=== PATIENT | male | born 1950 | race Caucasian/White ===

== ENCOUNTER 2020-06-08 10:45 | Inpatient (IN) | payer MEDICARE, SELFPAY ==
[2020-06-08] VITALS (8 sets, daily range): BP systolic 111–139; BP diastolic 56–81; PULSE 81–110; RESP 18–22; TEMP 36.1–37.1; O2SAT 79–95; BMI 34.4
--- NOTE | ~2020-06-08 | XR_ITS ---
EXAMINATION: XR CHEST CLINICAL INFORMATION: Shortness of breath and cough COMPARISON: 02/13/2018 TECHNIQUE: Frontal view of the chest was obtained. FINDINGS: There is focal airspace opacity in the left mid and lower lung with patchy bilateral interstitial opacities. Is blunting of the right costophrenic angle which may reflect a small right pleural effusion. Trace left pleural effusion may be present. Calcified aortic arch. Normal heart size. Degenerative changes of the shoulders and thoracic spine. XR/XR chest 1V IMPRESSION: Focal airspace opacity in the left mid and lower lung with patchy bilateral interstitial opacities. The appearance suggests an infectious or inflammatory etiology. Viral COVID pneumonitis could give this appearance.
--- NOTE | ~2020-06-08 | CT_ITS ---
EXAMINATION: CT ANGIOGRAM OF THE CHEST WITH AND WITHOUT CONTRAST (CT PULMONARY ANGIOGRAM FOR PE) CLINICAL INFORMATION: Hypoxia, tachycardia, elevated d-dimer COMPARISON: Chest x-ray earlier the same day TECHNIQUE: Prior to contrast administration, noncontrast localization images were obtained. Subsequently, multidetector volumetric imaging was performed from the thoracic inlet to below the diaphragms following the administration of 71 mL Omnipaque 350 intravenous contrast. No contrast reaction reported Sagittal, coronal, and MIP oblique sagittal reformatted images were obtained on the CT workstation, uploaded to PACS, and reviewed. This CT examination was performed using dose optimization techniques as appropriate, variously including the following: *Automated exposure control *Adjustment of mA and/or kV according to patient size (this includes techniques or standardized protocols for targeted exams where dose is matched to indication/reason for exam; i.e. extremities or head) *Use of iterative reconstruction technique Total exam dose-length product 413 mGy-cm FINDINGS: QUALITY OF STUDY/CONTRAST BOLUS: Satisfactory. PULMONARY ARTERIES: No central or segmental pulmonary emboli. THORACIC AORTA: No aneurysm or dissection. LUNG: There is respiratory motion artifact. Moderate centrilobular emphysema. There are patchy interstitial opacities in the lateral aspect of the left upper lobe and in the lower lobes bilaterally with more confluent areas of airspace consolidation in the left lower lobe and right posterior costophrenic sulcus. No dense lobar consolidation. PLEURA: Small bilateral pleural effusions, right greater than left. MEDIASTINUM: Heart size upper limits of normal. Trace pericardial fluid present. Prominent to mildly enlarged mediastinal lymph nodes are seen. The largest is a 1.5 x 1.1 cm AP window lymph node. No hilar lymphadenopathy. No evidence of septal bowing or right heart strain. CHEST WALL/AXILLA: No axillary or internal mammary lymphadenopathy. OSSEOUS STRUCTURES: The level degenerative changes. No acute or suspicious osseous abnormality. UPPER ABDOMEN: No adrenal mass. No reflux of contrast into the hepatic veins to suggest elevated right heart pressures. CT/CT angio chest PE protocol IMPRESSION: No pulmonary embolus. Small right greater than left bilateral pleural effusions. Patchy airspace opacity bilaterally with more confluent areas of airspace consolidation in the left lower lobe and posteriorly in the right lung base. The appearance is nonspecific but most suggestive of an infectious or inflammatory process. Recommend clinical correlation. Prominent to mildly enlarged mediastinal lymph nodes are presumably reactive. VTE: negative
--- NOTE | 2020-06-08 12:18 | ECG_ITS ---
Test Reason : SOB Blood Pressure : / mmHG Vent. Rate : 098 BPM Atrial Rate : 098 BPM P-R Int : 198 ms QRS Dur : 094 ms QT Int : 388 ms P-R-T Axes : 079 075 079 degrees QTc Int : 495 ms Normal sinus rhythm Cannot rule out Inferior infarct , age undetermined T wave abnormality, consider anterolateral ischemia Abnormal ECG No previous ECGs available Referred By: Sarai Kothari Electronically Signed By:RENEE BOOTH MD
--- NOTE | 2020-06-08 12:36 | ED_ITS ---
HPI - SOB/Dyspnea General Chief Complaint: Dyspnea <SUDHEER Adkins - Last Filed: 06/08/20 15:38> Stated Complaint: SOB, HX COPD, NO COVID EXPOSURE <SUDHEER Adkins - Last Filed: 06/08/20 15:38> Time Seen by Provider: 06/08/20 12:17 <SUDHEER Adkins - Last Filed: 06/08/20 15:38> Source: patient and EMS <SUDHEER Adkins - Last Filed: 06/08/20 15:38> Mode of arrival: EMS <SUDHEER Adkins - Last Filed: 06/08/20 15:38> Limitations: no limitations <SUDHEER Adkins - Last Filed: 06/08/20 15:38> History of Present Illness HPI Narrative: 70 y/o male with history of COPD on PRN O2, hx [place] in 1989, HLD, BPH who presents to the ED via EMS with worsening SOB, JONES, and productive cough for the last 4-5 days. He reports his breathing has been significantly worse with any exertion. He has been bringing up a lot of phlegm the last few days which is not his baseline. He does not recall color. He denies fever or chills. He has central chest discomfort and soreness when he is coughing. No nausea or vomiting. No known sick contacts. <SUDHEER Adkins - Last Filed: 06/08/20 15:38> MD elicited complaint: shortness of breath and cough <SUDHEER Adkins - Last Filed: 06/08/20 15:38> Pertinent past history: COPD <SUDHEER Adkins - Last Filed: 06/08/20 15:38> Onset (ago): day(s) (4-5) <SUDHEER Adkins - Last Filed: 06/08/20 15:38> Timing: constant <SUDHEER Adkins - Last Filed: 06/08/20 15:38> Severity: moderate <SUDHEER Adkins Last Filed: 06/08/20 15:38> Exacerbating factors: exertion and movement <SUDHEER Adkins - Last Filed: 06/08/20 15:38> Relieving factors: oxygen, rest and bronchodilators <SUDHEER Adkins Last Filed: 06/08/20 15:38> Known history of: COPD <SUDHEER Adkins Last Filed: 06/08/20 15:38> Associated symptoms: chest pain, cough, wheezing and sputum production <SUDHEER Adkins Last Filed: 06/08/20 15:38> Treatment prior to arrival: oxygen and bronchodilator <SUDHEER Adkins Last Filed: 06/08/20 15:38> Related Data Home oxygen amount: other (as needed with exertion) <SUDHEER Adkins Last Filed: 06/08/20 15:38> Home Medications: Home Medications Medication Instructions Recorded Confirmed Breo Ellipta 1 puff PO DAILY 06/08/20 06/08/20 aspirin 1 tab PO DAILY 06/08/20 06/08/20 lisinopril 1 tab PO DAILY 06/08/20 06/08/20 pravastatin 1 tab PO BEDTIME 06/08/20 06/08/20 tamsulosin 1 cap PO DAILY 06/08/20 06/08/20 Previous Rx's Medication Instructions Recorded cefuroxime axetil 500 mg PO BID 7 Days #10 tab 06/11/20 prednisone 20 mg PO DAILY #3 tab 06/11/20 <SUDHEER Adkins Last Filed: 06/08/20 15:38> Allergies/Adverse Reactions: Allergies Allergy/AdvReac Type Severity Reaction Status Date / Time No Known Allergies Allergy Verified 06/08/20 10:59 <SUDHEER Adkins Last Filed: 06/08/20 15:38> Review of Systems Review of Systems: Constitutional: No Fever, No Chills ENT/Mouth: No sore throat, No Rhinorrhea, No Swallowing Difficulty Cardiovascular: + Chest Pain, + SOB, No Orthopnea, No Edema Respiratory: + Cough, + Sputum, + Wheezing, + dyspnea Gastrointestinal: No Nausea, No Vomiting, No Diarrhea, No abdominal Pain Genitourinary: No Dysuria, No Urinary Frequency, No Hematuria Musculoskeletal: No joint pain, No Myalgias Skin: No Skin Lesions, No rash Neuro: No Weakness, No Numbness, No Dizziness, No Headache Psych: No Anxiety/Panic, No Depression Heme/Lymph: No Bruising, No Lymphadenopathy Endocrine: No Polyuria, No Polydipsia <SUDHEER Adkins - Last Filed: 06/08/20 15:38> [facility] Past Medical History Attestation statement: The following information was validated with the patient. <SUDHEER Adkins - Last Filed: 06/08/20 15:38> Medical History: Medical History (Updated 06/19/20 @ 00:00 by Ksenia Sanchez) BPH (benign prostatic hyperplasia) COPD (chronic obstructive pulmonary disease) HTN (hypertension) <SUDHEER Adkins - Last Filed: 06/08/20 15:38> Surgical History: Surgical History (Updated 06/08/20 @ 16:28 by SUDHEER Holloway) H/O hernia repair <SUDHEER Adkins - Last Filed: 06/08/20 15:38> Family History Family History: Family History Other CAD (coronary artery disease) <SUDHEER Adkins - Last Filed: 06/08/20 15:38> Social History Social History: Social History (Updated 06/08/20 @ 16:28 by SUDHEER Holloway) Household Members: None Housing: Apartment Alcohol intake: current Alcohol intake frequency: holidays/special occasions only Smoking Status: Former smoker service: No Current occupational status: disabled <SUDHEER Adkins - Last Filed: 06/08/20 15:38> Physical Exam Vital Signs: Vital Signs: Last Vital Signs Temp 98.4 F 06/11/20 11:43 Pulse 102 H 06/11/20 11:43 Resp 19 06/11/20 11:43 BP 127/63 06/11/20 11:43 Pulse Ox 91 L 06/11/20 11:43 Body Mass Index 34.4 Appearance: Alert. Oriented X3. No acute distress. Eyes: Pupils equal, round and reactive to light. ENT: Pharynx normal. Neck: Normal inspection. Neck supple. CVS: Normal heart rate and rhythm. Pulses normal. Respiratory: No respiratory distress. Breath sounds with end expiratory wheezes throughout Abdomen: Obese, Soft and nontender. +BS x4 Skin: Skin warm and dry. Normal skin color. Normal skin turgor. No rashes. Extremities: No lower extremity edema. Negative Maddi's sign Neuro: Oriented X 3. No motor deficit. No sensory deficit. <SUDHEER Adkins - Last Filed: 06/08/20 15:38> Vital Signs: Last Vital Signs Temp 98.4 F 06/11/20 11:43 Pulse 102 H 06/11/20 11:43 Resp 19 06/11/20 11:43 BP 127/63 06/11/20 11:43 Pulse Ox 91 L 06/11/20 11:43 Body Mass Index 34.4 <Baldev Márquez MD - Last Filed: 06/28/20 11:08> Course Course Course Narrative: 70 y/o with history of COPD and [place] presenting with SOB, JONES and productive cough. Hypoxic to 79% for EMS. Placed on 4L NC and given 2 nebs en route with significant improvement. He feels much better on arrival. SpO2 91-96% on 4L NC. When weaned to 3L he desaturated to 87%. Wheezing starting to increase. Will get COVID now and start an hour long albuterol neb. IV steroids ordered for COPD exacerbation as well as cultures. He is afebrile and does not appear septic at this time. Anticipate admisison. <SUDHEER Adkins - Last Filed: 06/08/20 15:38> I have reviewed the chart <Baldev Márquez MD - Last Filed: 06/28/20 11:08> Reevaluation(s) Reevaluation #1: CXR with left sided infiltrate - Rocephin and Azithromycin ordered for CAP coverage. Lactic acid is normal and he remains afebrile. HR 90 on arrival and 99 now. Tachycardia likely due to nebulizers given. BNP elevated will hold off on I VF. EKG is concerning for ischemia however, no old to review and troponin 8.8 which is reassuring. Will get 3 hour repeat. He offers no complaints of chest pain at this time. DDIMER elevated, will proceed with CTA chest for further assessment of PNA and r/o PE. SpO2 91% on 4L NC after 1 hour long neb. Will admit. <SUDHEER Adkins - Last Filed: 06/08/20 15:38> Reevaluation #2: CTA negative for PE - showing bilateral infiltrates. He has been given CAP coverage. Will order sputum culture. Will admit. Hospitalist Vita Lancaster PA-C has been notified of patient and will admit. <SUDHEER Adkins - Last Filed: 06/08/20 15:38> MDM - SOB/Dyspnea Differential Diagnosis Differential diagnosis: Likely acute exacerbation of chronic obstructive airways disease, congestive heart failure, pneumonia, asthma with exacerbation, pulmonary embolism and pleural effusion <SUDHEER Adkins - Last Filed: 06/08/20 15:38> Medical Records Attestation: I reviewed the patient's medical records. <SUDHEER Adkins - Last Filed: 06/08/20 15:38> Lab Data Attestation: I reviewed the patient's lab results. <SUDHEER Adkins - Last Filed: 06/08/20 15:38> Result diagrams: : 06/09/20 05:54 06/09/20 05:54 <SUDHEER Adkins - Last Filed: 06/08/20 15:38> Labs: Lab Results 06/08/20 06/08/20 06/08/20 Range/Units 12:27 12:27 12:27 WBC 5.0 (4.8-10.8) X10*3/uL RBC 5.39 (4.60-5.80) X10*6/uL Hgb 13.5 L (14.0-18.0) g/dl Hct 45.8 (42-52) % MCV 85.0 (80-98) fL MCH 25.0 L (27.0-33.0) pg MCHC 29.5 L (31.0-36.0) g/dl RDW 17.7 H (11.0-16.0) % Plt Count 297 (160-400) X10*3/uL MPV 10.1 (9.4-12.4) fL Immature Gran % (Auto) 0.2 (0.0-0.4) % Neut % (Auto) 70.6 (45-73) % Lymph % (Auto) 17.5 L (20-40) % Barrow % (Auto) 8.9 (2-11) % Eos % (Auto) 1.6 (0-4) % Baso % (Auto) 1.2 (0-2) % Lymph # (Auto) 0.9 L (1.2-4.9) X10*3/uL Barrow # (Auto) 0.5 (0.1-1.2) X10*3/uL Eos # (Auto) 0.1 (0.0-0.4) X10*3/uL Baso # (Auto) 0.1 (0.0-0.2) X10*3/uL Abs Immat Gran (auto) 0.01 (0.00-0.03) X10*3/uL Absolute Neuts (auto) 3.6 (2.0-8.3) X10*3/uL Absolute Nucleated RBC 0.000 (0.0-0.012) X10*3/uL Nucleated RBC % (auto) 0.0 (0.0-0.2) /100WBC D-Dimer 794 NG/ML Hold Blue Top SEE NOTE Sodium 139 (135-145) mmol/L Potassium 4.5 (3.3-5.1) mmol/L Chloride 105 (96-108) mmol/L Carbon Dioxide 27 (22-29) mmol/L Anion Gap 12 (12-20) BUN 12 (9-16) mg/dL Creatinine 0.83 (0.5-1.4) mg/dL Estim Creat Clear Calc 90.5 Estimated GFR > 60 Random Glucose 92 (60-115) mg/dL Lactic Acid (0.5-2.0) mmol/L Calcium 9.1 (8.4-10.2) mg/dL Magnesium 2.2 (1.6-2.6) mg/dL Total Bilirubin 0.7 (0.0-1.0) mg/dL Direct Bilirubin 0.4 (0.0-0.5) mg/dL AST 12 (5-37) U/L ALT 9 (0-40) U/L Alkaline Phosphatase 63 (39-117) U/L Troponin I High Sens (<3.5-35.0) ng/L C-Reactive Protein 0.78 H (< or = 0.50) mg/dL B-Natriuretic Peptide (<100) pg/mL Total Protein 6.4 L (6.5-8.0) g/dL Albumin 3.6 (3.5-5.0) g/dL COVID-19 (LUIS) (Negative) COVID-19 Clin Com 06/08/20 06/08/20 06/08/20 Range/Units 12:27 12:27 12:27 WBC (4.8-10.8) X10*3/uL RBC (4.60-5.80) X10*6/uL Hgb (14.0-18.0) g/dl Hct (42-52) % MCV (80-98) fL MCH (27.0-33.0) pg MCHC (31.0-36.0) g/dl RDW (11.0-16.0) % Plt Count (160-400) X10*3/uL MPV (9.4-12.4) fL Immature Gran % (Auto) (0.0-0.4) % Neut % (Auto) (45-73) % Lymph % (Auto) (20-40) % Barrow % (Auto) (2-11) % Eos % (Auto) (0-4) % Baso % (Auto) (0-2) % Lymph # (Auto) (1.2-4.9) X10*3/uL Barrow # (Auto) (0.1-1.2) X10*3/uL Eos # (Auto) (0.0-0.4) X10*3/uL Baso # (Auto) (0.0-0.2) X10*3/uL Abs Immat Gran (auto) (0.00-0.03) X10*3/uL Absolute Neuts (auto) (2.0-8.3) X10*3/uL Absolute Nucleated RBC (0.0-0.012) X10*3/uL Nucleated RBC % (auto) (0.0-0.2) /100WBC D-Dimer NG/ML Hold Blue Top Sodium (135-145) mmol/L Potassium (3.3-5.1) mmol/L Chloride (96-108) mmol/L Carbon Dioxide (22-29) mmol/L Anion Gap (12-20) BUN (9-16) mg/dL Creatinine (0.5-1.4) mg/dL Estim Creat Clear Calc Estimated GFR Random Glucose (60-115) mg/dL Lactic Acid 1.6 (0.5-2.0) mmol/L Calcium (8.4-10.2) mg/dL Magnesium (1.6-2.6) mg/dL Total Bilirubin (0.0-1.0) mg/dL Direct Bilirubin (0.0-0.5) mg/dL AST (5-37) U/L ALT (0-40) U/L Alkaline Phosphatase (39-117) U/L Troponin I High Sens 8.8 (<3.5-35.0) ng/L C-Reactive Protein (< or = 0.50) mg/dL B-Natriuretic Peptide 462 H (<100) pg/mL Total Protein (6.5-8.0) g/dL Albumin (3.5-5.0) g/dL COVID-19 (LUIS) Negative (Negative) COVID-19 Clin Com See Note <SUDHEER Adkins - Last Filed: 06/08/20 15:38> Lab Results 06/08/20 06/08/20 06/08/20 Range/Units 12:27 12:27 12:27 WBC 5.0 (4.8-10.8) X10*3/uL RBC 5.39 (4.60-5.80) X10*6/uL Hgb 13.5 L (14.0-18.0) g/dl Hct 45.8 (42-52) % MCV 85.0 (80-98) fL MCH 25.0 L (27.0-33.0) pg MCHC 29.5 L (31.0-36.0) g/dl RDW 17.7 H (11.0-16.0) % Plt Count 297 (160-400) X10*3/uL MPV 10.1 (9.4-12.4) fL Immature Gran % (Auto) 0.2 (0.0-0.4) % Neut % (Auto) 70.6 (45-73) % Lymph % (Auto) 17.5 L (20-40) % Barrow % (Auto) 8.9 (2-11) % Eos % (Auto) 1.6 (0-4) % Baso % (Auto) 1.2 (0-2) % Lymph # (Auto) 0.9 L (1.2-4.9) X10*3/uL Barrow # (Auto) 0.5 (0.1-1.2) X10*3/uL Eos # (Auto) 0.1 (0.0-0.4) X10*3/uL Baso # (Auto) 0.1 (0.0-0.2) X10*3/uL Abs Immat Gran (auto) 0.01 (0.00-0.03) X10*3/uL Absolute Neuts (auto) 3.6 (2.0-8.3) X10*3/uL Absolute Nucleated RBC 0.000 (0.0-0.012) X10*3/uL Nucleated RBC % (auto) 0.0 (0.0-0.2) /100WBC D-Dimer 794 NG/ML Hold Blue Top SEE NOTE Sodium 139 (135-145) mmol/L Potassium 4.5 (3.3-5.1) mmol/L Chloride 105 (96-108) mmol/L Carbon Dioxide 27 (22-29) mmol/L Anion Gap 12 (12-20) BUN 12 (9-16) mg/dL Creatinine 0.83 (0.5-1.4) mg/dL Estim Creat Clear Calc 90.5 Estimated GFR > 60 Random Glucose 92 (60-115) mg/dL Lactic Acid (0.5-2.0) mmol/L Calcium 9.1 (8.4-10.2) mg/dL Magnesium 2.2 (1.6-2.6) mg/dL Total Bilirubin 0.7 (0.0-1.0) mg/dL Direct Bilirubin 0.4 (0.0-0.5) mg/dL AST 12 (5-37) U/L ALT 9 (0-40) U/L Alkaline Phosphatase 63 (39-117) U/L Troponin I High Sens (<3.5-35.0) ng/L C-Reactive Protein 0.78 H (< or = 0.50) mg/dL B-Natriuretic Peptide (<100) pg/mL Total Protein 6.4 L (6.5-8.0) g/dL Albumin 3.6 (3.5-5.0) g/dL COVID-19 (LUIS) (Negative) COVID-19 Clin Com 06/08/20 06/08/20 06/08/20 Range/Units 12:27 12:27 12:27 WBC (4.8-10.8) X10*3/uL RBC (4.60-5.80) X10*6/uL Hgb (14.0-18.0) g/dl Hct (42-52) % MCV (80-98) fL MCH (27.0-33.0) pg MCHC (31.0-36.0) g/dl RDW (11.0-16.0) % Plt Count (160-400) X10*3/uL MPV (9.4-12.4) fL Immature Gran % (Auto) (0.0-0.4) % Neut % (Auto) (45-73) % Lymph % (Auto) (20-40) % Barrow % (Auto) (2-11) % Eos % (Auto) (0-4) % Baso % (Auto) (0-2) % Lymph # (Auto) (1.2-4.9) X10*3/uL Barrow # (Auto) (0.1-1.2) X10*3/uL Eos # (Auto) (0.0-0.4) X10*3/uL Baso # (Auto) (0.0-0.2) X10*3/uL Abs Immat Gran (auto) (0.00-0.03) X10*3/uL Absolute Neuts (auto) (2.0-8.3) X10*3/uL Absolute Nucleated RBC (0.0-0.012) X10*3/uL Nucleated RBC % (auto) (0.0-0.2) /100WBC D-Dimer NG/ML Hold Blue Top Sodium (135-145) mmol/L Potassium (3.3-5.1) mmol/L Chloride (96-108) mmol/L Carbon Dioxide (22-29) mmol/L Anion Gap (12-20) BUN (9-16) mg/dL Creatinine (0.5-1.4) mg/dL Estim Creat Clear Calc Estimated GFR Random Glucose (60-115) mg/dL Lactic Acid 1.6 (0.5-2.0) mmol/L Calcium (8.4-10.2) mg/dL Magnesium (1.6-2.6) mg/dL Total Bilirubin (0.0-1.0) mg/dL Direct Bilirubin (0.0-0.5) mg/dL AST (5-37) U/L ALT (0-40) U/L Alkaline Phosphatase (39-117) U/L Troponin I High Sens 8.8 (<3.5-35.0) ng/L C-Reactive Protein (< or = 0.50) mg/dL B-Natriuretic Peptide 462 H (<100) pg/mL Total Protein (6.5-8.0) g/dL Albumin (3.5-5.0) g/dL COVID-19 (LUIS) Negative (Negative) COVID-19 Clin Com See Note <Baldev Márquez MD - Last Filed: 06/28/20 11:08> ECG Data Attestation: I personally reviewed and interpreted this ECG as follows: <SUDHEER Adkins - Last Filed: 06/08/20 15:38> ECG interpretation date: 06/08/20 <SUDHEER Adkins - Last Filed: 06/08/20 15:38> ECG interpretation time: 14:07 <SUDHEER Adkins - Last Filed: 06/08/20 15:38> Prior ECG tracings: not available for review <SUDHEER Adkins - Last Filed: 06/08/20 15:38> Ischemic changes: t wave inversions <SUDHEER Adkins - Last Filed: 06/08/20 15:38> Interpretation: normal sinus rhythm, HR 98 bpm, t-wave inversions in leads I, V1-V5. artifact present. <SUDHEER Adkins - Last Filed: 06/08/20 15:38> Critical Care Time Critical Care Time Critical Care Time: Yes <SUDHEER Adkins - Last Filed: 06/08/20 15:38> Total Critical Care Time: 60 <SUDHEER Adkins - Last Filed: 06/08/20 15:38> Attestation: I attest to critical care time spent caring for this patient with life- threatening acute hypoxic respiratory failure; time spent frequently at the beside reassessing his respiratory status, reviewing imaging, labs and coordinating care. <SUDHEER Adkins - Last Filed: 06/08/20 15:38> Discharge Plan Discharge Clinical Impression: Acute respiratory failure with hypoxia, Multifocal pneumonia <SUDHEER Adkins - Last Filed: 06/08/20 15:38> Patient Disposition: Admitted As Inpatient <SUDHEER Adkins - Last Filed: 06/08/20 15:38> Interventions: Admission Worksheet (ED) Last Done: 06/08/20 18:35 <SUDHEER Adkins - Last Filed: 06/08/20 15:38> Discharge Date/Time: 06/08/20 18:35 <SUDHEER Adkins - Last Filed: 06/08/20 15:38>
[2020-06-08 12:41] LABS: MANUAL DIFF FLAG NO
[2020-06-08 12:43] LABS: Basophils Absolute Auto 0.1 X10*3/uL (0.0-0.2); Basophils Percent Auto 1.2 % (0-2); Eosinophils Absolute Auto 0.1 X10*3/uL (0.0-0.4); Eosinophils Percent Auto 1.6 % (0-4); Hematocrit 45.8 % (42-52); Hemoglobin 13.5 g/dl (14.0-18.0); Imm Gran Abs Auto 0.01 X10*3/uL (0.00-0.03); Imm Gran Pct Auto 0.2 % (0.0-0.4); Lymphocytes Absolute Auto 0.9 X10*3/uL (1.2-4.9); Lymphocytes Percent Auto 17.5 % (20-40); Mean Corpuscular HGB Conc 29.5 g/dl (31.0-36.0); Mean Platelet Volume 10.1 fL (9.4-12.4); Monocytes Absolute Auto 0.5 X10*3/uL (0.1-1.2); Monocytes Percent Auto 8.9 % (2-11); Neutrophils Absolute Auto 3.6 X10*3/uL (2.0-8.3); Neutrophils Percent Auto 70.6 % (45-73); Platelet Count 297 X10*3/uL (160-400); Red Blood Count 5.39 X10*6/uL (4.60-5.80); Red Cell Distribution Width 17.7 % (11.0-16.0)
[2020-06-08] MEDS: methylPREDNISolone Sod Succ/PF 125 MG/2 ML VIAL IVPUSH (12:47)
[2020-06-08 12:53] LABS: D Dimer 794 NG/ML
[2020-06-08] MEDS: Albuterol Sulfate (0.083%) 2.5 MG/3 ML VIAL.NEB 10 MG INHALE (12:56)
[2020-06-08 13:00] LABS: COVID-19 Test Negative (Negative); IDNOW Serial# 9DD0AD1C
[2020-06-08 13:02] LABS: Lactic Acid 1.6 mmol/L (0.5-2.0)
[2020-06-08 13:10] LABS: Alanine Aminotransferase 9 U/L (0-40); Albumin Level 3.6 g/dL (3.5-5.0); Alkaline Phosphatase 63 U/L (39-117); Anion Gap 12 (12-20); Aspartate Amino Transferase 12 U/L (5-37); Bilirubin Direct 0.4 mg/dL (0.0-0.5); Bilirubin Total 0.7 mg/dL (0.0-1.0); Blood Urea Nitrogen 12 mg/dL (9-16); C Reactive Protein 0.78 mg/dL (< or = 0.50); Calcium 9.1 mg/dL (8.4-10.2); Carbon Dioxide 27 mmol/L (22-29); Chloride 105 mmol/L (96-108); Creatinine Clr Calc Pharmacy 90.5; Estimated Glomerular Filt Rate > 60; Glucose Random 92 mg/dL (60-115); Magnesium 2.2 mg/dL (1.6-2.6); Potassium 4.5 mmol/L (3.3-5.1); Sodium 139 mmol/L (135-145); Total Protein 6.4 g/dL (6.5-8.0)
[2020-06-08 13:13] LABS: B Type Natriuretic Peptide 462 pg/mL (<100); Troponin-I High Sensitivity 8.8 ng/L (<3.5-35.0)
[2020-06-08] MEDS: cefTRIAXone sodium 1 GM in 0.9 % Sodium Chloride 50 ML IV (13:46)
[2020-06-08] MEDS: Azithromycin 500 MG in 0.9 % Sodium Chloride 250 ML 125 MG IV (14:27)
--- NOTE | 2020-06-08 14:41 | PC.NURSE ---
pt to ct at this time
[2020-06-08] MEDS: iohexoL 350 MG/ML 100 ML INFUS..BTL IV (14:50)
--- NOTE | 2020-06-08 16:22 | P.HPHOSP_ITS ---
History of Present Illness Date of Service: 06/08/20 Chief Complaint: shortness of breath This is a 70-year-old male with history of COPD who presents to the emergency department with shortness of breath. He reports 8 or 9 days of increasing shortness of breath which has been worse over the past 4 - 5 days. He has had productive cough and chills. He denies fever. He denies any recent sick contacts. He was hypoxic on arrival with an oxygen saturation of 79% which is improved to 91% on 4 L. he received multiple breathing treatments in the emergency department. His COVID test was negative. CTA was negative for PE but showed bilateral patchy opacities with airspace disease and left lower lobe and right lower lobe. His lab work was unremarkable with exception of troponin in indeterminate range at 8.8. Chest x-ray showed T-wave inversions in leads V2 through V5. Patient denies any chest pain. He was treated with breathing treatments, supplemental oxygen, IV Solu-Medrol as well as antibiotics in the decision was made to admit him for further management Review of Systems Review of Systems: Yes all other systems are reviewed and are negative Constitutional: Constitutional: Denies fever(s) Cardiovascular: Cardiovascular: Denies chest pain and Reports dyspnea Respiratory: Respiratory: Reports cough and Reports dyspnea Gastrointestinal: Gastrointestinal: Denies abdominal pain [facility] Medical History (Updated 06/08/20 @ 16:27 by SUDHEER Holloway) BPH (benign prostatic hyperplasia) COPD (chronic obstructive pulmonary disease) HTN (hypertension) Functional capacity: independent ambulation Family History Other CAD (coronary artery disease) Surgical History (Updated 06/08/20 @ 16:28 by SUDHEER Holloway) H/O hernia repair Social History (Updated 06/08/20 @ 16:28 by SUDHEER Holloway) Household Members: None Alcohol intake: current Alcohol intake frequency: holidays/special occasions only Smoking Status: Former smoker Smoked in Last 30 Days: No Use of substances other than those prescribed or required for medical reasons: No Advance Directives: No Advance Directives Information Provided: No Meds Allergies Allergy/AdvReac Type Severity Reaction Status Date / Time No Known Allergies Allergy Verified 06/08/20 10:59 Active Medications: Current Medications Generic Name Dose Route Start Last Admin Trade Name Freq PRN Reason Stop Dose Admin Albuterol Sulfate 2.5 mg 06/08/20 16:18 Albuterol Sulfate (0.083%) 2.5 Mg/3 Ml Vial.Neb INHALE RQ4H PRN Shortness of Breath Albuterol/Ipratropium 3 ml 06/08/20 20:00 Albuterol/Iprat 2.5/0.5mg 3 Ml Ampul.Neb INHALE RQ4H WHILE AWAKE [facility] Pharmacy Consult 1 each 06/08/20 12:17 Consult Rx Perform Med Rec MISCELLANE ONCE PRN Consult order Home Medications Medication Instructions Recorded Confirmed Last Taken Type aspirin 1 tab PO DAILY 06/08/20 06/08/20 Unknown History fluticasone furoate-vilanterol 1 puff PO DAILY 06/08/20 06/08/20 Unknown History [Breo Ellipta] lisinopril 1 tab PO DAILY 06/08/20 06/08/20 Unknown History pravastatin 1 tab PO BEDTIME 06/08/20 06/08/20 Unknown History tamsulosin 1 cap PO DAILY 06/08/20 06/08/20 Unknown History Physical Exam Vital Signs and Narrative: Vital Signs: Last Vital Signs Temp 98.1 F 06/08/20 10:55 Pulse 99 06/08/20 13:46 Resp 22 H 06/08/20 13:46 BP 122/71 06/08/20 13:46 Pulse Ox 86 L 06/08/20 13:46 Body Mass Index 34.4 Const: General: alert and awake Nutritional Appearance: well nourished Orientation/consciousness: patient oriented x3 HENMT: Head: Yes normocephalic and Yes atraumatic Eyes: Sclerae: sclerae normal Chest: Chest palpation & inspection: normal inspection of the chest Resp: Other: diminished breath sounds b/l expiratory wheezing Effort & Inspection: tachypneic Cardio: Rate: regular rate Rhythm: regular rhythm GI: Palpation (GI): Soft to palpation and nontender Skin: General skin exam: no rashes or lesions noted Neuro: General: patient oriented x3 Cranial nerves: Yes CN's II-XII intact bilaterally and Yes Bilaterally intact EOM present Extrem: General: Yes normal to inspection Results Labs CBC and Chem 7: 06/08/20 12:27 06/08/20 12:27 Labs: Laboratory Results - last 24 hr 06/08/20 06/08/20 06/08/20 12:27 12:27 12:27 MCV 85.0 MCH 25.0 L MCHC 29.5 L RDW 17.7 H Plt Count 297 MPV 10.1 Immature Gran % (Auto) 0.2 Neut % (Auto) 70.6 Lymph % (Auto) 17.5 L Morgan % (Auto) 8.9 Eos % (Auto) 1.6 Baso % (Auto) 1.2 Lymph # (Auto) 0.9 L Morgan # (Auto) 0.5 Eos # (Auto) 0.1 Baso # (Auto) 0.1 Abs Immat Gran (auto) 0.01 Absolute Neuts (auto) 3.6 Absolute Nucleated RBC 0.000 Nucleated RBC % (auto) 0.0 D-Dimer 794 Hold Blue Top SEE NOTE Anion Gap 12 Estim Creat Clear Calc 90.5 Estimated GFR > 60 Random Glucose 92 Lactic Acid Calcium 9.1 Magnesium 2.2 Total Bilirubin 0.7 Direct Bilirubin 0.4 AST 12 ALT 9 Alkaline Phosphatase 63 Troponin I High Sens C-Reactive Protein 0.78 H B-Natriuretic Peptide Total Protein 6.4 L Albumin 3.6 COVID-19 (LUIS) [employer] 06/08/20 06/08/20 06/08/20 12:27 12:27 12:27 MCV MCH MCHC RDW Plt Count MPV Immature Gran % (Auto) Neut % (Auto) Lymph % (Auto) Morgan % (Auto) Eos % (Auto) Baso % (Auto) Lymph # (Auto) Morgan # (Auto) Eos # (Auto) Baso # (Auto) Abs Immat Gran (auto) Absolute Neuts (auto) Absolute Nucleated RBC Nucleated RBC % (auto) D-Dimer Hold Blue Top Anion Gap Estim Creat Clear Calc Estimated GFR Random Glucose Lactic Acid 1.6 Calcium Magnesium Total Bilirubin Direct Bilirubin AST ALT Alkaline Phosphatase Troponin I High Sens 8.8 C-Reactive Protein B-Natriuretic Peptide 462 H Total Protein Albumin COVID-19 (LUIS) Negative COVID-Second Half Playbook See Note Imaging Radiologist's Impressions: Impressions Chest X-Ray 06/08/20 12:17 IMPRESSION: Focal airspace opacity in the left mid and lower lung with patchy bilateral interstitial opacities. The appearance suggests an infectious or inflammatory etiology. Viral COVID pneumonitis could give this appearance. Chest CTA 06/08/20 14:07 IMPRESSION: No pulmonary embolus. Small right greater than left bilateral pleural effusions. Patchy airspace opacity bilaterally with more confluent areas of airspace consolidation in the left lower lobe and posteriorly in the right lung base. The appearance is nonspecific but most suggestive of an infectious or inflammatory process. Recommend clinical correlation. Prominent to mildly enlarged mediastinal lymph nodes are presumably reactive. VTE: negative Assessment and Plan (1) Acute respiratory failure with hypoxia: Status: Acute (2) Multifocal pneumonia: Status: Acute This is a 70-year-old male with history of CAD, COPD on p.r.n. O2 who presents to the emergency department with shortness of breath found to have pneumonia and respiratory failure Acute respiratory failure with hypoxia r/t COPD/CAP covid negative Community acquired pneumonia gram - or gram + covid neg for now will place pt on isolation precautions check RPP -ceftriaxone, azithromycin COPD exacerbation -supplemental oxygen as needed -iv solumedrol h/o CAD no chest pain. trop 8.8. EKG with t wave inversion continue asa trend trop BPH continue flomax HTN continue lisinopril DVT prophylaxis-heparin Code status-full code This case was discussed with Dr. Thomas
--- NOTE | 2020-06-08 17:22 | PC.NURSE ---
call to med surg
--- NOTE | 2020-06-08 17:56 | MHC.CM.PN ---
CM met with pt. IMM 06/08/20 reviewed and signed per protocol. Very pleasant, independent and A&Ox3. Lives alone. Has help from Isaias (neighbor, but pt calls him his son) [phone]. Uses home O2 prn when he grocery shops. Has no medical equipment or services. States his sister, Merlene Egan is his HCP ([phone]), but is not on file. D/C plan is home with possible VNA. Will need resp. evaluation prior to D/C. Transportation by Isaias. CM will follow for d/c needs.
[2020-06-08 18:04] LABS: Adenovirus PCR Not Detected (Not Detect.); Bordetella parapertussis PCR Not Detected (Not Detect.); Bordetella pertussis PCR Not Detected (Not Detect.); Chlamydia pneumoniae PCR Not Detected (Not Detect.); Coronavirus 229E PCR Not Detected (Not Detect.); Coronavirus HKU1 PCR Not Detected (Not Detect.); Coronavirus NL63 PCR Not Detected (Not Detect.); Coronavirus OC43 PCR Not Detected (Not Detect.); Human metapneumovirus PCR Not Detected (Not Detect.); Influenza A PCR Not Detected (Not Detect.); Influenza B PCR Not Detected (Not Detect.); Mycoplasma pneumoniae PCR Not Detected (Not Detect.); Parainfluenza 1 PCR Not Detected (Not Detect.); Parainfluenza 2 PCR Not Detected (Not Detect.); Parainfluenza 3 PCR Not Detected (Not Detect.); Parainfluenza 4 PCR Not Detected (Not Detect.); RSV PCR Not Detected (Not Detect.); Rhino/Enterovirus PCR Not Detected (Not Detect.); SARS-CoV-2 PCR Not Detected (Not Detect.)
[2020-06-08 18:13] LABS: Glucose Urine UA NEG (NEG); Leukocyte Esterase Urine NEG (NEG); Nitrite Urine NEG (NEG); Specific Gravity - Urine 1.015 (1.005-1.025); Urine Blood NEG (NEG); Urine Ketones NEG (NEG); Urine Protein NEG (NEG-TRACE)
[2020-06-08 18:20] LABS: Troponin-I High Sensitivity 8.6 ng/L (<3.5-35.0)
[2020-06-08 18:22] LABS: Appearance Urine CLEAR; Color Urine YELLOW
[2020-06-08] MEDS: Heparin Sodium,Porcine 5,000 UNIT/ML VIAL 5000 UNIT SUBCUT (20:35)
[2020-06-08] MEDS: Albuterol/Iprat 2.5/0.5MG 3 ML AMPUL.NEB INHALE (20:44)
[2020-06-08] MEDS: 0.9 % Sodium Chloride Flush 3 ML SYRINGE IVFLUSH (22:15)
[2020-06-09] VITALS (11 sets, daily range): BP systolic 102–128; BP diastolic 57–69; PULSE 88–102; RESP 18–22; TEMP 36.3–37; O2SAT 90–94; BMI 34.4
[2020-06-09 06:44] LABS: Anion Gap 13 (12-20); Blood Urea Nitrogen 19 mg/dL (9-16); Calcium 8.9 mg/dL (8.4-10.2); Carbon Dioxide 23 mmol/L (22-29); Chloride 109 mmol/L (96-108); Creatinine Clr Calc Pharmacy 92.7; Estimated Glomerular Filt Rate > 60; Glucose Random 129 mg/dL (60-115); Potassium 4.9 mmol/L (3.3-5.1); Sodium 140 mmol/L (135-145)
[2020-06-09 06:54] LABS: Hematocrit 43.2 % (42-52); Hemoglobin 12.9 g/dl (14.0-18.0); Imm Gran Abs Auto 0.02 X10*3/uL (0.00-0.03); Imm Gran Pct Auto 0.3 % (0.0-0.4); Lymphocytes Absolute Auto 0.4 X10*3/uL (1.2-4.9); Lymphocytes Percent Auto 4.9 % (20-40); MANUAL DIFF FLAG SCAN; Mean Corpuscular HGB Conc 29.9 g/dl (31.0-36.0); Mean Corpuscular Hemoglobin 25.1 pg (27.0-33.0); Mean Platelet Volume 10.1 fL (9.4-12.4); Monocytes Absolute Auto 0.2 X10*3/uL (0.1-1.2); Monocytes Percent Auto 2.5 % (2-11); Neutrophils Absolute Auto 6.7 X10*3/uL (2.0-8.3); Neutrophils Percent Auto 92.3 % (45-73); Platelet Count 284 X10*3/uL (160-400); Red Blood Count 5.14 X10*6/uL (4.60-5.80); Red Cell Distribution Width 17.8 % (11.0-16.0); SCAN SMEAR FLAG 1; White Blood Count 7.3 X10*3/uL (4.8-10.8)
[2020-06-09 07:22] LABS: SLIDE REVIEW VERIFIED
[2020-06-09] MEDS: Albuterol/Iprat 2.5/0.5MG 3 ML AMPUL.NEB INHALE ×4 (08:28→20:13)
[2020-06-09] MEDS: Fluticasone/Vilanterol 200/25 BLST.W.DEV 1 PUFF INHALE (08:28)
[2020-06-09] MEDS: 0.9 % Sodium Chloride Flush 3 ML SYRINGE IVFLUSH ×3 (09:46→23:28)
[2020-06-09] MEDS: Aspirin 81 MG TAB.CHEW PO (09:46)
[2020-06-09] MEDS: Tamsulosin HCL 0.4 MG CAPSULE PO (09:46)
[2020-06-09] MEDS: Heparin Sodium,Porcine 5,000 UNIT/ML VIAL 5000 UNIT SUBCUT ×2 (09:46→20:25)
--- NOTE | 2020-06-09 13:09 | HO.PM.IMPN ---
Subjective Subjective Date of Service: 06/09/20 Interval History: Patient seen and examined at bedside Patient reported shortness of breath little improved Constitutional Constitutional: Denies fever(s) Cardiovascular Cardiovascular: Denies chest pain and Reports dyspnea Respiratory Respiratory: Reports cough and Reports dyspnea Gastrointestinal Gastrointestinal: Denies abdominal pain Physical Exam Vital Signs: Vital Signs: Last Vital Signs Temp 97.5 F 06/09/20 11:28 Pulse 88 06/09/20 12:05 Resp 22 H 06/09/20 11:28 BP 121/69 06/09/20 11:28 Pulse Ox 90 L 06/09/20 11:28 Body Mass Index 34.4 Const: General: alert and awake Nutritional Appearance: well nourished Orientation/consciousness: patient oriented x3 HENMT: Head: Yes normocephalic and Yes atraumatic Eyes: Sclerae: sclerae normal Chest: Chest palpation & inspection: normal inspection of the chest Resp: Other: diminished breath sounds b/l expiratory wheezing Effort & Inspection: tachypneic Cardio: Rate: regular rate Rhythm: regular rhythm GI: Palpation (GI): Soft to palpation and nontender Skin: General skin exam: no rashes or lesions noted Neuro: General: patient oriented x3 Cranial nerves: Yes CN's II-XII intact bilaterally and Yes Bilaterally intact EOM present Extrem: General: Yes normal to inspection Objective Data Current Medications Generic Name Dose Route Start Last Admin Trade Name Freq PRN Reason Stop Dose Admin Acetaminophen 650 mg 06/08/20 18:21 Acetaminophen 325 Mg Tablet PO Q6H PRN Pain, Mild (Pain Scale 1-3) Albuterol Sulfate 2.5 mg 06/08/20 16:18 Albuterol Sulfate (0.083%) 2.5 Mg/3 Ml Vial.Neb INHALE RQ4H PRN Shortness of Breath Albuterol/Ipratropium 3 ml 06/08/20 20:00 06/09/20 12:04 Albuterol/Iprat 2.5/0.5mg 3 Ml Ampul.Neb INHALE 3 ml RQ4H WHILE AWAKE SHERLYN Administration Aspirin 81 mg 06/09/20 09:00 06/09/20 09:46 Aspirin 81 Mg Tab.Chew PO 81 mg DAILY SHERLYN Administration Docusate Sodium 100 mg 06/08/20 18:21 Docusate Sodium 100 Mg Capsule PO DAILY PRN Constipation Fluticasone/Vilanterol 1 puff 06/09/20 09:00 06/09/20 08:28 Fluticasone/Vilanterol 200/25 Blst.W.Dev INHALE 1 puff DAILY SHERLYN Administration Heparin Sodium (Porcine) 5,000 unit 06/08/20 20:00 06/09/20 09:46 Heparin Sodium,Porcine 5,000 Unit/Ml Vial SUBCUT 5,000 unit Q12H SHERLYN Administration Ceftriaxone Sodium 1 gm/ 50 mls @ 100 mls/hr 06/09/20 13:00 Sodium Chloride IV Q24H SHERLYN Azithromycin 500 mg/ Sodium 250 mls @ 125 mls/hr 06/09/20 14:00 Chloride IV Q24H SHERLYN Lisinopril 10 mg 06/09/20 09:00 06/09/20 09:46 Lisinopril 10 Mg Tablet PO 10 mg DAILY SHERLYN Administration Protocol Methylprednisolone Sodium Succinate 40 mg 06/08/20 22:00 06/09/20 09:46 Methylprednisolone Sod Succ/Pf 40 Mg/Ml Vial IVPUSH 40 mg Q12H SHERLYN Administration Ondansetron HCl 4 mg 06/08/20 18:21 Ondansetron Hcl 4 Mg/2 Ml Vial IVPUSH Q8H PRN Nausea and Vomiting Pharmacy Consult 1 each 06/08/20 12:17 Consult Rx Perform Med Rec MISCELLANE ONCE PRN Consult order Sodium Chloride 3 ml 06/09/20 00:00 06/09/20 09:46 0.9 % Sodium Chloride Flush 3 Ml Syringe IVFLUSH 3 ml QSHIFT SHERLYN Administration Tamsulosin HCl 0.4 mg 06/09/20 09:00 06/09/20 09:46 Tamsulosin Hcl 0.4 Mg Capsule PO 0.4 mg DAILY SHERLYN Administration Labs CBC & Chem 7: 06/09/20 05:54 06/09/20 05:54 Microbiology Microbiology Results: Microbiology 06/08/20 12:27 Blood - Venous Blood Culture - Preliminary Assessment and Plan (1) Acute respiratory failure with hypoxia: Status: Acute (2) Multifocal pneumonia: Status: Acute Assessment and Plan: This is a 70-year-old male with history of CAD, COPD on p.r.n. O2 who presents to the emergency department with shortness of breath found to have pneumonia and respiratory failure Acute on chronic respiratory failure with hypoxia secondary to pneumonia and COPD exacerbation covid negative Continue oxygen supplementation Community acquired pneumonia COVID negative Continue IV antibiotic One set of blood culture grew Gram-positive cocci in cluster will wait for the final result probably contamination COPD exacerbation Still short of breath and wheezy -supplemental oxygen as needed Continue iv solumedrol Continue nebulizer H/o CAD no chest pain. EKG with t wave inversion Two sets of high sensitivity troponin negative ACS less likely Will need cardiology follow-up as outpatient continue asa BPH continue flomax HTN continue lisinopril DVT prophylaxis-heparin
[2020-06-09] MEDS: cefTRIAXone sodium 1 GM in 0.9 % Sodium Chloride 50 ML IV (14:09)
[2020-06-09] MEDS: Azithromycin 500 MG in 0.9 % Sodium Chloride 250 ML 125 MG IV (15:03)
[2020-06-10] VITALS (10 sets, daily range): BP systolic 97–125; BP diastolic 54–76; PULSE 84–99; RESP 14–22; TEMP 36.1–37.4; O2SAT 87–96
[2020-06-10] MEDS: Fluticasone/Vilanterol 200/25 BLST.W.DEV 1 PUFF INHALE (08:13)
[2020-06-10] MEDS: Albuterol/Iprat 2.5/0.5MG 3 ML AMPUL.NEB INHALE ×3 (08:13→20:17)
[2020-06-10] MEDS: Heparin Sodium,Porcine 5,000 UNIT/ML VIAL 5000 UNIT SUBCUT ×2 (09:52→20:58)
[2020-06-10] MEDS: Tamsulosin HCL 0.4 MG CAPSULE PO (09:52)
[2020-06-10] MEDS: Aspirin 81 MG TAB.CHEW PO (09:52)
[2020-06-10] MEDS: 0.9 % Sodium Chloride Flush 3 ML SYRINGE IVFLUSH ×3 (09:53→20:59)
--- NOTE | 2020-06-10 13:11 | HO.PM.IMPN ---
Subjective Subjective Date of Service: 06/10/20 Interval History: Patient seen and examined at bedside Patient reported shortness of breath Constitutional Constitutional: Denies fever(s) Cardiovascular Cardiovascular: Denies chest pain and Reports dyspnea Respiratory Respiratory: Reports cough and Reports dyspnea Gastrointestinal Gastrointestinal: Denies abdominal pain Physical Exam Vital Signs: Vital Signs: Last Vital Signs Temp 97.4 F 06/10/20 12:00 Pulse 95 06/10/20 12:00 Resp 19 06/10/20 12:00 BP 97/54 L 06/10/20 12:00 Pulse Ox 87 L 06/10/20 12:00 Body Mass Index 34.4 Const: General: alert and awake Nutritional Appearance: well nourished Orientation/consciousness: patient oriented x3 HENMT: Head: Yes normocephalic and Yes atraumatic Eyes: Sclerae: sclerae normal Chest: Chest palpation & inspection: normal inspection of the chest Resp: Other: diminished breath sounds b/l expiratory wheezing Effort & Inspection: tachypneic Cardio: Rate: regular rate Rhythm: regular rhythm GI: Palpation (GI): Soft to palpation and nontender Skin: General skin exam: no rashes or lesions noted Neuro: General: patient oriented x3 Cranial nerves: Yes CN's II-XII intact bilaterally and Yes Bilaterally intact EOM present Extrem: General: Yes normal to inspection Objective Data Current Medications Generic Name Dose Route Start Last Admin Trade Name Freq PRN Reason Stop Dose Admin Acetaminophen 650 mg 06/08/20 18:21 Acetaminophen 325 Mg Tablet PO Q6H PRN Pain, Mild (Pain Scale 1-3) Albuterol Sulfate 2.5 mg 06/08/20 16:18 Albuterol Sulfate (0.083%) 2.5 Mg/3 Ml Vial.Neb INHALE RQ4H PRN Shortness of Breath Albuterol/Ipratropium 3 ml 06/08/20 20:00 06/10/20 08:13 Albuterol/Iprat 2.5/0.5mg 3 Ml Ampul.Neb INHALE 3 ml RQ4H WHILE AWAKE SHERLYN Administration Aspirin 81 mg 06/09/20 09:00 06/10/20 09:52 Aspirin 81 Mg Tab.Chew PO 81 mg DAILY SHERLYN Administration Docusate Sodium 100 mg 06/08/20 18:21 Docusate Sodium 100 Mg Capsule PO DAILY PRN Constipation Fluticasone/Vilanterol 1 puff 06/09/20 09:00 06/10/20 08:13 Fluticasone/Vilanterol 200/25 Blst.W.Dev INHALE 1 puff DAILY SHERLYN Administration Heparin Sodium (Porcine) 5,000 unit 06/08/20 20:00 06/10/20 09:52 Heparin Sodium,Porcine 5,000 Unit/Ml Vial SUBCUT 5,000 unit Q12H SHERLYN Administration Ceftriaxone Sodium 1 gm/ 50 mls @ 100 mls/hr 06/09/20 13:00 06/09/20 14:51 Sodium Chloride IV Infused Q24H SHERLYN Infusion Azithromycin 500 mg/ Sodium 250 mls @ 125 mls/hr 06/09/20 14:00 06/09/20 17:08 Chloride IV Infused Q24H SHERLYN Infusion Lisinopril 10 mg 06/09/20 09:00 06/10/20 09:52 Lisinopril 10 Mg Tablet PO 10 mg DAILY SHERLYN Administration Protocol Methylprednisolone Sodium Succinate 40 mg 06/08/20 22:00 06/10/20 09:52 Methylprednisolone Sod Succ/Pf 40 Mg/Ml Vial IVPUSH 40 mg Q12H SHERLYN Administration Ondansetron HCl 4 mg 06/08/20 18:21 Ondansetron Hcl 4 Mg/2 Ml Vial IVPUSH Q8H PRN Nausea and Vomiting Pharmacy Consult 1 each 06/08/20 12:17 Consult Rx Perform Med Rec MISCELLANE ONCE PRN Consult order Sodium Chloride 3 ml 06/09/20 00:00 06/10/20 09:53 0.9 % Sodium Chloride Flush 3 Ml Syringe IVFLUSH 3 ml QSHIFT SHERLYN Administration Tamsulosin HCl 0.4 mg 06/09/20 09:00 06/10/20 09:52 Tamsulosin Hcl 0.4 Mg Capsule PO 0.4 mg DAILY SHERLYN Administration Labs CBC & Chem 7: 06/09/20 05:54 06/09/20 05:54 Microbiology Microbiology Results: Microbiology 06/08/20 12:27 Blood - Venous Blood Culture - Preliminary Staphylococcus species 06/08/20 12:29 Blood - Venous Blood Culture - Preliminary No growth after 24 hours. Assessment and Plan (1) Acute respiratory failure with hypoxia: Status: Acute (2) Multifocal pneumonia: Status: Acute Assessment and Plan: This is a 70-year-old male with history of CAD, COPD on p.r.n. O2 who presents to the emergency department with shortness of breath found to have pneumonia and respiratory failure Acute on chronic respiratory failure with hypoxia secondary to pneumonia and COPD exacerbation slowly improving covid negative Continue oxygen supplementation wean down as tolerated Community acquired pneumonia COVID negative Continue IV antibiotic One set of blood culture grew Gram-positive cocci in cluster will wait for the final result probably contamination COPD exacerbation improving -supplemental oxygen as needed Continue iv solumedrol Continue nebulizer H/o CAD no chest pain. EKG with t wave inversion Two sets of high sensitivity troponin negative ACS less likely continue asa given elevated BNP and rales at lung bases will check echocardiogram to assess heart function BPH continue flomax HTN continue lisinopril DVT prophylaxis-heparin
[2020-06-10] MEDS: cefTRIAXone sodium 1 GM in 0.9 % Sodium Chloride 50 ML IV (13:23)
--- NOTE | 2020-06-10 13:33 | MHC.CM.PN ---
nurse urgent care technician note electronic medical record reviewed along with case discussed on multiple disciplinary rounds,met with patient he is hoping to be able to be discharged home tomorrow with new referral to the [facility] for nursing and assess for home physical therapy per hospitalist home 1-2 more days awaiting final culture reports, continue supplemental oxygen iv abx monitor all labs per documentation patient admitted with (acute respiratory failure multl- focal pna requiring continuos oxygen discharge plan new referral to the [facility] for nsign for diagnosis sign symptom management (hx cad copd home with oxygen as needed ).assess for home pt. transportation family pcp patient to call for post hospital discharge followup ) (
--- NOTE | 2020-06-10 14:00 | CA_ITS ---
Transthoracic Echocardiogram Patient (Last, First, Middle): Jose Solis A Gender: Male Date of : 1950 Age: 70 Procedure Date: 06/10/2020 Procedure Type: Transthoracic Echocardiogram Location: S3W Height: 170.18 cm Weight: 99.79 kg BSA: 2.11 m2 Heart Rate: bpm BP: 97 / 54 mmHg Electroencephalograph Technologist: RICARDO Cervantes MD: Willard Thomas MD Spinning Lathe Operator: Jose Boateng MD Symptoms: elevated bnp hypoxia assess cardiac function Study Quality: Technically Difficult ECG Rhythm: Sinus Conclusions: - 1. Normal LV systolic function 2. Normal cardiac valvular Doppler 3. Normal RV systolic pressure with suggestion of increased right atrial pressure mildly 4. No gross pericardial effusion Findings Left Ventricle Normal left ventricular size, thickness, and systolic function. The visually estimated ejection fraction is between 60-65%. Diastolic function is indeterminate on the basis of available data. Right Ventricle The right ventricle was not well visualized. Atria The left atrium is likely dilated. Interatrial shunt cannot be excluded. The right atrium was not well visualized. Aortic Valve There is mild calcification of the aortic valve. There is no aortic valve stenosis. There is no aortic valve regurgitation. Mitral Valve Likely normal mitral valve structure and function. There is trace mitral valve regurgitation. There is no mitral valve stenosis. Pulmonic Valve The pulmonic valve was not well visualized. Tricuspid Valve Likely normal tricuspid valve structure and function. There is mild tricuspid valve regurgitation. The right ventricular systolic pressure is normal. The right ventricular systolic pressure is 19 mmHg. Mildly elevated right atrial pressure. There is no evidence of pulmonary hypertension. Great Vessels All visible segments of the aorta are normal in size. The pulmonary artery was not well visualized. Venous The inferior vena cava is mildly dilated and collapses greater than 50% with inspiration. Pericardium/Pleural There is no evidence of pericardial effusion. Prior Study Comparison No prior study available for comparison. Measurements 2D Linear Measurements IVSd: 1.17 0.6-0.9/0.6-1.0 cm LVIDd: 4.35 3.9-5.3/4.2-5.9 cm LVIDd Index: 2.06 2.4-3.2/2.2-3.1 cm/m2 LVIDs: 3.41 2.0-3.6 cm LVPWd: 1.16 0.7-1.1 cm Ao Root: 3.70 2.1-3.5 cm LA Diam: 4.10 2.7-3.8/3.0-4.0 cm LAIDs Index: 1.94 1.5-2.3 cm/m2 LV Mass: 224.40 67-162/88-224 g LV Mass Index: 106.35 43-95/49-115 g/m2 LVOT Diam: 2.20 3.0+(-)1.3 cm 2D Systolic Function EF 4C: 58.80 >55% EF 2C: 66.30 >55% EF BiP: 62.60 >55% Mitral Valve E'Medial: 8.05 Aortic Valve AoV Pk Juan M: 1.42 AoV Mn Juan M: 1.00 AoV VTI: 0.27 AoV Pk Grad: 8.00 Aov Mn Grad: 4.00 HAYLEY Cont.VTI: 3.44 LVOT LVOT Pk Juan M: 1.45 LVOT Mn Juan M: 0.91 LVOT VTI: 0.25 LVOT Pk Grad: 8.00 LVOT Mn Grad: 4.00 LVOT Diam: 2.20 LVOT Area: 3.80 Diastolic Function E'Medial: 8.05 Tricuspid Valve TR Pk Juan M: 1.66 TR Pk Grad: 11.00 RA Press: 8.00 RVSP: 19.00 Great Vessels Aorta Ao Root-2D: 3.70 2.0-3.7 cm Ao Asc: 3.50 2.1-3.4 cm Updated in Other Vendor System with Status of Final Jose Boateng MD electronically signed on 06/10/2020 5:00:22 PM with status of Final
[2020-06-10] MEDS: Azithromycin 500 MG in 0.9 % Sodium Chloride 250 ML 125 MG IV (15:05)
--- NOTE | 2020-06-11 02:51 | PC.NURSE ---
telepack being monitored by I[facility] RN
[2020-06-11 03:41] VITALS: BP 127/81; PULSE 86; RESP 18; TEMP 36.4; O2SAT 90
[2020-06-11 07:50] VITALS: BP 130/83; PULSE 83; RESP 21; TEMP 36.5; O2SAT 91
[2020-06-11] MEDS: Fluticasone/Vilanterol 200/25 BLST.W.DEV 1 PUFF INHALE (07:55)
[2020-06-11] MEDS: Albuterol/Iprat 2.5/0.5MG 3 ML AMPUL.NEB INHALE ×2 (07:55→11:38)
[2020-06-11 07:56] VITALS: PULSE 100; O2SAT 91
[2020-06-11] MEDS: 0.9 % Sodium Chloride Flush 3 ML SYRINGE IVFLUSH (07:58)
[2020-06-11] MEDS: Heparin Sodium,Porcine 5,000 UNIT/ML VIAL 5000 UNIT SUBCUT (07:58)
[2020-06-11] MEDS: Aspirin 81 MG TAB.CHEW PO (07:59)
[2020-06-11] MEDS: Tamsulosin HCL 0.4 MG CAPSULE PO (07:59)
--- NOTE | 2020-06-11 09:09 | P.DS_ITS ---
DS: Providers Provider Date of Service: 06/11/20 Date of admission: 06/08/20 16:18 Primary care physician: Altaf Campos MD DS: Diagnosis Discharge Diagnosis (1) Acute respiratory failure with hypoxia: Status: Acute (2) Multifocal pneumonia: Status: Acute (3) COPD with exacerbation: Status: Acute DS: Medications Discharge Medications Home Medications: Home Medications Medication Instructions Recorded Confirmed aspirin 1 tab PO DAILY 06/08/20 06/08/20 fluticasone furoate-vilanterol 1 puff PO DAILY 06/08/20 06/08/20 [Breo Ellipta] lisinopril 1 tab PO DAILY 06/08/20 06/08/20 pravastatin 1 tab PO BEDTIME 06/08/20 06/08/20 tamsulosin 1 cap PO DAILY 06/08/20 06/08/20 DS: Summary Hospital Course Hospital Course: Chief Complaint: shortness of breath This is a 70-year-old male with history of COPD who presents to the emergency department with shortness of breath. He reports 8 or 9 days of increasing shortness of breath which has been worse over the past 4 - 5 days. He has had productive cough and chills. He denies fever. He denies any recent sick contacts. He was hypoxic on arrival with an oxygen saturation of 79% which is improved to 91% on 4 L. he received multiple breathing treatments in the emergency department. His COVID test was negative. CTA was negative for PE but showed bilateral patchy opacities with airspace disease and left lower lobe and right lower lobe. His lab work was unremarkable with exception of troponin in indeterminate range at 8.8. Chest x-ray showed T-wave inversions in leads V2 through V5. Patient denies any chest pain. He was treated with breathing treatments, supplemental oxygen, IV Solu-Medrol as well as antibiotics in the decision was made to admit him for further management Hospital course: Patient was hospitalized for acute respiratory failure due to Pneumonia complicated by exacerbation of COPD. He was treated with IV ceftriaxone and Azithromycin for pneumonia and COPD managed with IV solumedrol and bronchodilators by [facility]. He is feel well, has no hypoxia and very comfortable going. He is home O2 as needed and will continue to do so. He will be prescribed oral Ceftin for total of 7 days of antibiotics. Will give 3 more days of Pr ednisone and is asked to follow up with PCP within a week. Covid was negative Time Spent with Patient Time attestation: Total time spent providing and/or coordinating discharge services: Discharge coordination time: Greater than 30 minutes Physical Exam Vital Signs: Vital Signs: Last Vital Signs Temp 97.7 F 06/11/20 07:50 Pulse 100 06/11/20 07:56 Resp 21 H 06/11/20 07:50 BP 130/83 06/11/20 07:50 Pulse Ox 91 L 06/11/20 07:50 Body Mass Index 34.4 Const: General: alert and awake Nutritional Appearance: well nourished Orientation/consciousness: patient oriented x3 HENMT: Head: Yes normocephalic and Yes atraumatic Eyes: Sclerae: sclerae normal Chest: Chest palpation & inspection: normal inspection of the chest Resp: Other: diminished breath sounds b/l expiratory wheezing Effort & Inspection: tachypneic Cardio: Rate: regular rate Rhythm: regular rhythm GI: Palpation (GI): Soft to palpation and nontender Skin: General skin exam: no rashes or lesions noted Neuro: General: patient oriented x3 Cranial nerves: Yes CN's II-XII intact bilaterally and Yes Bilaterally intact EOM present Extrem: General: Yes normal to inspection DS: Data Data Completed and Pending Labs on day of discharge: Preliminary micro results at discharge 06/08/20 12:29 Blood Culture - Preliminary Blood - Venous No growth after 48 hours. Discharge Plan Discharge Anticipated Discharge Date/Time: 06/11/20 09:00 Patient Disposition: Home, Self-Care Referrals: Altaf Campos MD [Primary Care Provider] - Discharge Medications: New cefuroxime axetil 500 mg tablet 500 mg PO BID 7 Days Qty: 10 RF: 0 prednisone 20 mg tablet 20 mg PO DAILY Qty: 3 RF: 0 Continued pravastatin 40 mg tablet 1 tab PO BEDTIME RF: 0 tamsulosin 0.4 mg capsule 1 cap PO DAILY RF: 0 lisinopril 10 mg tablet 1 tab PO DAILY RF: 0 aspirin 81 mg tablet,chewable 1 tab PO DAILY RF: 0 Breo Ellipta 200-25 mcg/dose blister with device 1 puff PO DAILY RF: 0 Discharge Orders: Discharge Order (Routine); Ordered 06/11/20 Ordered By: Fausto Liriano Diet: advance to usual diet Activity on Discharge: As tolerated Stand Alone Forms: Patient Portal Discharge page Care Plan Goals: Full recovery from COPD and Pneumonia Health Concerns: COPD with acute exacerbation Plan of Treatment: Take Cefuroxime for Pneumonia, Take prednisone and inhalers for copd, use oxygen as needed and follow up with your docotor within a week, call for appointment
--- NOTE | 2020-06-11 10:27 | MHC.CM.PN ---
Addendum entered by Chio Bland 06/11/20 12:56: PATIENT TO RESUME HOME O2 SERVICES. Original Note: PATIENT IS DISCHARGED TO HOME WITH [facility]. START OF CARE IS SATURDAY OR SATURDAY OF NEXT WEEK. IMM 06/10 IN CHART.
[2020-06-11 11:39] VITALS: PULSE 10; O2SAT 92
[2020-06-11 11:43] VITALS: BP 127/63; PULSE 102; RESP 19; TEMP 36.9; O2SAT 91
[2020-06-11] MEDS: cefTRIAXone sodium 1 GM in 0.9 % Sodium Chloride 50 ML IV (12:10)
--- NOTE | 2020-06-11 12:49 | W.MHC.F2F ---
Service Date Service Date: 06/11/20 Reasons for Services Reason for group home: CV/CP assess and/or care MD Overseeing Care: Altaf Campos Homebound: Leaving the home is medically contraindicated at this time without the asist of a device and/or another person due th the listed conditions above and below. Homebound supporting statement: Patient is homebound due to advanced COPD with shortness of breath at rest require recent hospitalization and therefore need the assistance of another person. Certification: Based on the above findings, I certify that this patient is confined to the home and needs intermittent group home care, physical therapy and/or speech therapy, or continues to need occupational therapy. The patient is under my care, and I have initiated the establishment of the plan of care. The patient will be followed by a physician who will periodically review the plan of care.
== END 2020-06-11 13:39 | disposition home health service (06) | DRG 194 ==
LOC: HO.ED 15:31 → HO.EDOVER 16:23 → HO.S3 17:05
PROVIDERS: Physician Assistant; Physician Assistant Medical; Admitting Provider Internal Medicine; Emergency Provider Emergency Medicine; PCP Internal Medicine; Visit Provider Internal Medicine
DX: J18.9 Pneumonia, unspecified organism (principal); J44.0 Chronic obstructive pulmonary disease with (acute) lower respiratory infection; J44.1 Chronic obstructive pulmonary disease with (acute) exacerbation; J96.11 Chronic respiratory failure with hypoxia; N40.0 Benign prostatic hyperplasia without lower urinary tract symptoms; Z20.822 Contact with and (suspected) exposure to COVID-19; I25.2 Old myocardial infarction; Z99.81 Dependence on supplemental oxygen; I25.10 Atherosclerotic heart disease of native coronary artery without angina pectoris; Z79.82 Long term (current) use of aspirin; Z79.899 Other long term (current) drug therapy
CPT/HCPCS: 36415; 71045; 71275; 80048; 80076; 81003; 83605; 83735; 83880; 84484; 85025; 85379; 86140; 87040; 87147; 87205; 87633; 87635; 93005; 93306; 94640; 94644; 94664; 96365; 96366; 96368; 96375; 99285; 99291; J0456; J0696; J2920; J2930; Q9967

== ENCOUNTER → 2020-12-13 10:43 | Outpatient (BNVA) | payer MEDICARE, SELFPAY | PROVIDERS: PCP Internal Medicine; Visit Provider Internal Medicine | DX: J44.9 Chronic obstructive pulmonary disease, unspecified (principal); R09.02 Hypoxemia; Z79.899 Other long term (current) drug therapy | CPT/HCPCS: 99212 ==

== ENCOUNTER → 2021-03-01 10:07 | Outpatient (BNVA) | payer MEDICARE, SELFPAY | PROVIDERS: PCP Internal Medicine; Visit Provider Internal Medicine | DX: J44.9 Chronic obstructive pulmonary disease, unspecified (principal); R09.02 Hypoxemia | CPT/HCPCS: 99212 ==

== ENCOUNTER 2021-04-05 09:57 | Inpatient (IN) | payer MEDICARE, SELFPAY ==
[2021-04-05] VITALS (8 sets, daily range): BP systolic 101–131; BP diastolic 65–81; PULSE 72–92; RESP 14–20; TEMP 36.6–37; O2SAT 70–96; BMI 37.5
--- NOTE | ~2021-04-05 | XR_ITS ---
EXAMINATION: XR CHEST CLINICAL INFORMATION: Shortness of breath. COMPARISON: Chest radiograph and chest CT from 04/05/2021. TECHNIQUE: Frontal view of the chest was obtained. FINDINGS: The emphysematous lungs are well expanded. Again noted is thickening of peribronchial interstitium and/or bronchial rockwell. The interstitial prominence is slightly improved compared to 04/05/2021. It is difficult to determine radiographically whether findings are from congestive heart failure with mild interstitial edema, inflammatory thickening of bronchial rockwell (i.e., bronchitis), or combination of the two. The small pleural effusions observed on the chest CT are not well seen radiographically. The cardiomediastinal silhouette has stable size and contour. There is atherosclerotic calcification of the aorta. No pneumothorax or other significant change. XR/XR chest 1V IMPRESSION: * Chronic obstructive pulmonary disease. * There appears to be mild improvement in congestive heart failure compared to 04/05/2021.
--- NOTE | ~2021-04-05 | CT_ITS ---
EXAMINATION: CT CHEST WITH CONTRAST CLINICAL INFORMATION: Follow-up mass seen on chest x-ray COMPARISON: Previous chest x-ray from earlier the same day and previous chest CTA May 2020 TECHNIQUE: Multidetector volumetric CT imaging of the chest was obtained after the administration of 65 mL of Omnipaque 350 intravenous contrast without immediate adverse reactions. Axial MIP volume rendering provided. Sagittal and coronal reformatted images were obtained. This CT examination was performed using dose optimization techniques as appropriate, variously including the following: *Automated exposure control *Adjustment of mA and/or kV according to patient size (this includes techniques or standardized protocols for targeted exams where dose is matched to indication/reason for exam; i.e. extremities or head) *Use of iterative reconstruction technique DLP: 407 mGy-cm FINDINGS: LUNGS: There is an of emphysema. There is a 5 mm superior segment right lower lobe nodule axial image 31 series 4 that is stable. There is a 4 mm right lower lobe nodule at the right lung base axial image 47 series 4. This area is obscured on prior exam and comparison cannot be made. There are mild increased peripheral interstitial markings. The lungs are otherwise clear. There is no evidence of pneumonia or mass. MEDIASTINUM: There are enlarged mediastinal and bilateral hilar lymph nodes. These appear stable from May 2020 exam. Largest lymph node is a subcarinal lymph node measuring 2 cm in short axis axial image 33 series 4. The heart does not appear enlarged. There is coronary artery calcification. There is a very small pericardial effusion. PLEURA: There are very small bilateral pleural effusions. AXILLA: No lymphadenopathy. UPPER ABDOMEN: There may be increased AP dimension of the abdominal aorta. This is incompletely visualized. OSSEOUS STRUCTURES: There are degenerative changes of the spine. There are old left-sided rib fractures. CT/CT chest w con IMPRESSION: Stable enlarged hilar and mediastinal lymph nodes. Enlarged heart, increased peripheral interstitial markings and small bilateral pleural effusions. Findings are questionable for mild CHF. Differential would include interstitial lung disease. Stable 5 mm superior segment right lower lobe pulmonary nodule. 4 mm right lower lobe pulmonary nodule base that cannot be compared with prior exam. Fleischner guidelines were followed.
--- NOTE | ~2021-04-05 | XR_ITS ---
EXAMINATION: XR CHEST CLINICAL INFORMATION: Shortness of breath COMPARISON: 06/08/2020 TECHNIQUE: Portable 11:17 AM view of the chest was obtained. FINDINGS: Diffuse increased markings appears improved since baseline. It is difficult to exclude any recurrent atypical infection pattern versus chronic disease on this current study. Heart size remains mildly enlarged. No overt CHF. XR/XR chest 1V IMPRESSION: Improved appearance of the lung parenchyma but there is residual or recurrent atypical infection pattern as above. No pleural disease.
--- NOTE | 2021-04-05 11:07 | ECG_ITS ---
Test Reason : sob Blood Pressure : / mmHG Vent. Rate : 067 BPM Atrial Rate : 067 BPM P-R Int : 222 ms QRS Dur : 090 ms QT Int : 410 ms P-R-T Axes : 082 076 058 degrees QTc Int : 433 ms Sinus rhythm with 1st degree A-V block Otherwise normal ECG When compared with ECG of 08-JUN-2020 13:49, T wave inversion no longer evident in Anterolateral leads QT has shortened Referred By: Heber Santos Electronically Signed By:MARCIO CASTILLO
--- NOTE | 2021-04-05 11:12 | ED_ITS ---
HPI - SOB/Dyspnea General Chief Complaint: Dyspnea Stated Complaint: SOB X'S WEEKS W/EXERTION, 73% RA,98% 4LPM PER EMS Time Seen by Provider: 04/05/21 10:59 Source: patient and old records reviewed History of Present Illness HPI Narrative: Patient with approximately 2 weeks worth of increasing dyspnea especially on exertion. He has a history of COPD. He is intermittently oxygen dependent at home, typically using it for exertion. He states recently, however, is unable to even get to the bathroom without becoming extremely dyspneic. No cough or sputum No fevers or chills He has had 2 doses of his COVID vaccine but has not yet had a booster. He has not yet had his pneumonia vaccine for the year. He has had his influenza vaccine however. Former smoker. He denies chest pain. No nausea vomiting diarrhea or abdominal pain His last episode requiring admission was in May of this year when he states he had pneumonia. No leg swelling or calf pain. No medication changes or other inciting factors the patient is aware of Related Data Home Medications Medication Instructions Recorded Confirmed aspirin 81 mg chewable tablet 1 tab PO DAILY 06/08/20 06/08/20 fluticasone furoate 200 1 puff PO DAILY 06/08/20 06/08/20 mcg-vilanterol 25 mcg/dose inhalation powder (Breo Ellipta) lisinopril 10 mg tablet 1 tab PO DAILY 06/08/20 06/08/20 pravastatin 40 mg tablet 1 tab PO BEDTIME 06/08/20 06/08/20 tamsulosin 0.4 mg capsule 1 cap PO DAILY 06/08/20 06/08/20 albuterol sulfate 90 mcg/actuation 0 mcg INHALATION 03/01/21 aerosol inhaler Allergies Allergy/AdvReac Type Severity Reaction Status Date / Time No Known Allergies Allergy Verified 03/01/21 10:26 Review of Systems Constitutional: Comments: No fevers or chills or generalized weakness ENT: Comments: No sore throat Cardiovascular: Comments: No chest pain Respiratory: Respiratory: Reports as per HPI Gastrointestinal: Gastrointestinal: Reports as per HPI Musculoskeletal: Comments: No leg swelling or calf tenderness Integumentary/Breasts: Comments: No rash Neurologic: Comments: No focal weakness PMFSH Past Medical History Medical History BPH (benign prostatic hyperplasia) COPD (chronic obstructive pulmonary disease) COPD (chronic obstructive pulmonary disease) HTN (hypertension) Hypoxemia Surgical History H/O hernia repair Family History Family History Other CAD (coronary artery disease) Social History Social History Household Members: None Housing: Apartment Do you presently have visiting nurse or other home services: No Alcohol intake: current Alcohol intake frequency: holidays/special occasions on ly Advance Directives: No Advance Directives Information Provided: No service: No Current occupational status: disabled Physical Exam Vital Signs: Vital Signs: Last Vital Signs Temp 98 F 04/05/21 14:13 Pulse 88 04/05/21 16:00 Resp 14 04/05/21 16:00 BP 118/68 04/05/21 16:00 Pulse Ox 90 L 04/05/21 16:00 Oxygen Flow Rate 3 04/05/21 10:29 BMI result Body Mass Index 37.5 Room air oxygen on arrival was 75. Improved with nasal cannula oxygen up to 96 at rest Const: Other: Awake alert in no acute distress. Resp: Other: Diminished bilaterally without wheezes rales or rhonchi Cardio: Other: Regular rate and rhythm without murmurs rubs or gallops GI: Other: Soft nontender nondistended normoactive bowel sounds Skin: Other: No rash Extrem: Other: No calf tenderness or pedal edema Course Course Course Narrative: Hypoxia COPD exacerbation COVID-19 infection Pneumonia Bronchitis CHF PE DuoNeb ordered Solu-Medrol IV 11:38 a.m.. X-ray shows bilateral interstitial atypical infectious pattern. It is improved from his visit in May but unclear whether this is a recurrence or not full resolution. Given hypoxia and worsening of symptoms, I will treat with antibiotics. 4:[address] scan shows hilar and mediastinal lymph nodes with an enlarged heart and question of mild CHF. There also small nodules. No other obvious abnormalities or pneumonia. Re-evaluation of patient shows he is subjectively feeling better. His oxygen saturation is ranging between 88 and 92 on room air. Will hospitalize for further treatment, steroids, oxygen. MDM - SOB/Dyspnea Lab Data Result diagrams: 04/05/21 13:28 04/05/21 12:23 Labs: Lab Results 04/05/21 04/05/21 04/05/21 Range/Units 12: 12:23 13:28 WBC 5.2 (4.8-10.8) X10*3/uL RBC 4.75 (4.60-5.80) X10*6/uL Hgb 7.8 L (14.0-18.0) g/dl Hct 32.1 L (42.0-52.0) % MCV 67.6 L (80.0-98.0) fL MCH 16.4 L (27.0-33.0) pg MCHC 24.3 L (31.0-36.0) g/dl RDW 21.4 H (11.0-16.0) % Plt Count 275 (160-400) X10*3/uL MPV Not Reportable Immature Gran % (Auto) 0.4 (0.0-0.4) % Neut % (Auto) 83.6 H (45-73) % Lymph % (Auto) 9.9 L (20-40) % Andrew % (Auto) 3.5 (2-11) % Eos % (Auto) 1.0 (0-4) % Baso % (Auto) 1.6 (0-2) % Lymph # (Auto) 0.5 L (1.2-4.9) X10*3/uL Andrew # (Auto) 0.2 (0.1-1.2) X10*3/uL Eos # (Auto) 0.1 (0.0-0.4) X10*3/uL Baso # (Auto) 0.1 (0.0-0.2) X10*3/uL Abs Immat Gran (auto) 0.02 (0.00-0.03) X10*3/uL Absolute Neuts (auto) 4.3 (2.0-8.3) x10*3/uL Absolute Nucleated RBC 0.060 H (0.0-0.012) X10*3/uL Nucleated RBC % (auto) 1.2 H (0.0-0.2) /100WBC Smear Tech's Comments VERIFIED D-Dimer High Sensitivty 228 NG/ML Sodium 139 (135-145) mmol/L Potassium 4.4 (3.3-5.1) mmol/L Chloride 111 H (96-108) mmol/L Carbon Dioxide 22 (22-29) mmol/L Anion Gap 10 L (12-20) BUN 18 H (9-16) mg/dL Creatinine 0.89 (0.5-1.4) mg/dL Estim Creat Clear Calc 84.2 Estimated GFR > 60 Random Glucose 86 (60-115) mg/dL Lactic Acid (0.5-2.0) mmol/L Calcium 9.1 (8.4-10.2) mg/dL Magnesium 2.1 (1.6-2.6) mg/dL Total Bilirubin 1.0 (0.0-1.0) mg/dL AST 13 (5-37) U/L ALT 8 (0-40) U/L Alkaline Phosphatase 62 (39-117) U/L Troponin I High Sens (<3.5-35.0) ng/L B-Natriuretic Peptide (<100) pg/mL Total Protein 6.2 L (6.5-8.0) g/dL Albumin 3.7 (3.5-5.0) g/dL Influenza Type A (PCR) (Negative) Influenza Type B (PCR) (Negative) RSV RNA Qual (PCR) (Negative) SARS-CoV-2 RNA (RT-PCR) (Negative) 04/05/21 04/05/21 04/05/21 Range/Units 13:28 13:28 13:28 WBC (4.8-10.8) X10*3/uL RBC (4.60-5.80) X10*6/uL Hgb (14.0-18.0) g/dl Hct (42.0-52.0) % MCV (80.0-98.0) fL MCH (27.0-33.0) pg MCHC (31.0-36.0) g/dl RDW (11.0-16.0) % Plt Count (160-400) X10*3/uL MPV Immature Gran % (Auto) (0.0-0.4) % Neut % (Auto) (45-73) % Lymph % (Auto) (20-40) % Andrew % (Auto) (2-11) % Eos % (Auto) (0-4) % Baso % (Auto) (0-2) % Lymph # (Auto) (1.2-4.9) X10*3/uL Andrew # (Auto) (0.1-1.2) X10*3/uL Eos # (Auto) (0.0-0.4) X10*3/uL Baso # (Auto) (0.0-0.2) X10*3/uL Abs Immat Gran (auto) (0.00-0.03) X10*3/uL Absolute Neuts (auto) (2.0-8.3) x10*3/uL Absolute Nucleated RBC (0.0-0.012) X10*3/uL Nucleated RBC % (auto) (0.0-0.2) /100WBC Smear Tech's Comments D-Dimer High Sensitivty NG/ML Sodium (135-145) mmol/L Potassium (3.3-5.1) mmol/L Chloride (96-108) mmol/L Carbon Dioxide (22-29) mmol/L Anion Gap (12-20) BUN (9-16) mg/dL Creatinine (0.5-1.4) mg/dL Estim Creat Clear Calc Estimated GFR Random Glucose (60-115) mg/dL Lactic Acid 1.9 (0.5-2.0) mmol/L Calcium (8.4-10.2) mg/dL Magnesium (1.6-2.6) mg/dL Total Bilirubin (0.0-1.0) mg/dL AST (5-37) U/L ALT (0-40) U/L Alkaline Phosphatase (39-117) U/L Troponin I High Sens 7.0 (<3.5-35.0) ng/L B-Natriuretic Peptide 243 H (<100) pg/mL Total Protein (6.5-8.0) g/dL Albumin (3.5-5.0) g/dL Influenza Type A (PCR) (Negative) Influenza Type B (PCR) (Negative) RSV RNA Qual (PCR) (Negative) SARS-CoV-2 RNA (RT-PCR) (Negative) 04/05/21 Range/Units 15:36 WBC (4.8-10.8) X10*3/uL RBC (4.60-5.80) X10*6/uL Hgb (14.0-18.0) g/dl Hct (42.0-52.0) % MCV (80.0-98.0) fL MCH (27.0-33.0) pg MCHC (31.0-36.0) g/dl RDW (11.0-16.0) % Plt Count (160-400) X10*3/uL MPV Immature Gran % (Auto) (0.0-0.4) % Neut % (Auto) (45-73) % Lymph % (Auto) (20-40) % Andrew % (Auto) (2-11) % Eos % (Auto) (0-4) % Baso % (Auto) (0-2) % Lymph # (Auto) (1.2-4.9) X10*3/uL Andrew # (Auto) (0.1-1.2) X10*3/uL Eos # (Auto) (0.0-0.4) X10*3/uL Baso # (Auto) (0.0-0.2) X10*3/uL Abs Immat Gran (auto) (0.00-0.03) X10*3/uL Absolute Neuts (auto) (2.0-8.3) x10*3/uL Absolute Nucleated RBC (0.0-0.012) X10*3/uL Nucleated RBC % (auto) (0.0-0.2) /100WBC Smear Tech's Comments D-Dimer High Sensitivty NG/ML Sodium (135-145) mmol/L Potassium (3.3-5.1) mmol/L Chloride (96-108) mmol/L Carbon Dioxide (22-29) mmol/L Anion Gap (12-20) BUN (9-16) mg/dL Creatinine (0.5-1.4) mg/dL Estim Creat Clear Calc Estimated GFR Random Glucose (60-115) mg/dL Lactic Acid (0.5-2.0) mmol/L Calcium (8.4-10.2) mg/dL Magnesium (1.6-2.6) mg/dL Total Bilirubin (0.0-1.0) mg/dL AST (5-37) U/L ALT (0-40) U/L Alkaline Phosphatase (39-117) U/L Troponin I High Sens (<3.5-35.0) ng/L B-Natriuretic Peptide (<100) pg/mL Total Protein (6.5-8.0) g/dL Albumin (3.5-5.0) g/dL Influenza Type A (PCR) NEGATIVE (Negative) Influenza Type B (PCR) NEGATIVE (Negative) RSV RNA Qual (PCR) NEGATIVE (Negative) SARS-CoV-2 RNA (RT-PCR) NEGATIVE (Negative) Discharge Plan Discharge Patient Disposition: Admitted As Inpatient Prescriptions: No Action pravastatin 40 mg tablet 1 tab PO BEDTIME RF: 0 tamsulosin 0.4 mg capsule 1 cap PO DAILY RF: 0 lisinopril 10 mg tablet 1 tab PO DAILY RF: 0 aspirin 81 mg tablet,chewable 1 tab PO DAILY RF: 0 Breo Ellipta 200-25 mcg/dose blister with device 1 puff PO DAILY RF: 0 albuterol sulfate 90 mcg/actuation HFA aerosol inhaler 0 mcg inhalation RF: 0
[2021-04-05] MEDS: Albuterol/Iprat 2.5/0.5MG 3 ML AMPUL.NEB INHALE (11:46)
[2021-04-05] MEDS: Azithromycin 500 MG TABLET PO (12:02)
[2021-04-05] MEDS: methylPREDNISolone Sod Succ 125 MG/2 ML VIAL IVPUSH (12:02)
[2021-04-05 12:40] LABS: D Dimer High Sensitivity 228 NG/ML
--- NOTE | 2021-04-05 12:42 | PC.NURSE ---
DELAY IN ABX ADMIN D/T PT REFUSING LAB WORK AND THEN REQUESTING PHLEBOTOMY FOR LAB DRAW ONLY
[2021-04-05 12:46] LABS: Alanine Aminotransferase 8 U/L (0-40); Albumin Level 3.7 g/dL (3.5-5.0); Alkaline Phosphatase 62 U/L (39-117); Anion Gap 10 (12-20); Aspartate Amino Transferase 13 U/L (5-37); Blood Urea Nitrogen 18 mg/dL (9-16); Calcium 9.1 mg/dL (8.4-10.2); Carbon Dioxide 22 mmol/L (22-29); Chloride 111 mmol/L (96-108); Creatinine Clr Calc Pharmacy 84.2; Estimated Glomerular Filt Rate > 60; Glucose Random 86 mg/dL (60-115); Magnesium 2.1 mg/dL (1.6-2.6); Potassium 4.4 mmol/L (3.3-5.1); Sodium 139 mmol/L (135-145); Total Protein 6.2 g/dL (6.5-8.0)
[2021-04-05 13:43] LABS: Basophils Absolute Auto 0.1 X10*3/uL (0.0-0.2); Basophils Percent Auto 1.6 % (0-2); Eosinophils Absolute Auto 0.1 X10*3/uL (0.0-0.4); Hematocrit 32.1 % (42.0-52.0); Hemoglobin 7.8 g/dl (14.0-18.0); Imm Gran Abs Auto 0.02 X10*3/uL (0.00-0.03); Imm Gran Pct Auto 0.4 % (0.0-0.4); Lymphocytes Absolute Auto 0.5 X10*3/uL (1.2-4.9); Lymphocytes Percent Auto 9.9 % (20-40); MANUAL DIFF FLAG SCAN; Mean Corpuscular HGB Conc 24.3 g/dl (31.0-36.0); Mean Corpuscular Hemoglobin 16.4 pg (27.0-33.0); Mean Corpuscular Volume 67.6 fL (80.0-98.0); Monocytes Absolute Auto 0.2 X10*3/uL (0.1-1.2); Monocytes Percent Auto 3.5 % (2-11); NRBC Pct Auto 1.2 /100WBC (0.0-0.2); Neutrophils Absolute Auto 4.3 x10*3/uL (2.0-8.3); Neutrophils Percent Auto 83.6 % (45-73); PLT CLUMP 1; Red Blood Count 4.75 X10*6/uL (4.60-5.80); Red Cell Distribution Width 21.4 % (11.0-16.0); SCAN SMEAR FLAG 1
[2021-04-05 13:49] LABS: Lactic Acid 1.9 mmol/L (0.5-2.0)
[2021-04-05] MEDS: cefTRIAXone sodium 1 GM in 0.9 % Sodium Chloride 50 ML IV (13:57)
[2021-04-05 13:59] LABS: B Type Natriuretic Peptide 243 pg/mL (<100)
[2021-04-05 14:06] LABS: Platelet Count 275 X10*3/uL (160-400); White Blood Count 5.2 X10*3/uL (4.8-10.8)
[2021-04-05 14:09] LABS: SLIDE REVIEW VERIFIED
[2021-04-05] MEDS: iohexoL 350 MG/ML 100 ML INFUS..BTL 65 ML IV (15:52)
[2021-04-05 16:24] LABS: Influenza A PCR NEGATIVE (Negative); Influenza B PCR NEGATIVE (Negative); Resp Syncy Virus RNA Qual PCR NEGATIVE (Negative); SARS COV2 PCR INHOUSE NEGATIVE (Negative)
--- NOTE | 2021-04-05 16:25 | PC.NURSE ---
Pt A&Ox3, lungs diminished in the bases with crackles, pt asking for food, awaiting dispo at this time, O2 sat 90% on 3L at this time. Call smith within reach, will continue to monitor.
[2021-04-05 17:03] LABS: Iron 14 mcg/dL (45-160); Percent Iron Saturation 3 % (15-50); Total Iron Binding Capacity 483 mcg/dL (228-428); Unsaturated Iron Binding 469 ug/dL
--- NOTE | 2021-04-05 17:07 | PM.IMHP ---
History of Present Illness Date of Service: 04/05/21 Chief Complaint: sob 71M presented with sob. Patient reports that for the past 2 weeks he has been feeling short of breath. He has a history of chronic hypoxic respiratory failure due to COPD is on 3 L home O2. He reports worsening shortness of breath on exertion. He is relatively asymptomatic at rest. Denies orthopnea, denies PND, fever, chills, cough, chest pain, weight gain, lower extremity edema. Symptoms were not improving and family commenced patient to finally come to ed today. In ED lab significant for hemoglobin of 7.8, down from 12.9 in May of this year, and 16.5 in 2019. Labs consistent with iron deficiency anemia with iron saturation of 3%, TIBC 483. Patient reports that he has had heavy epistaxis and least once a week for over a year. He is on a baby aspirin for primary prophylaxis. Denies other NSAID use. He reports negative colonoscopy last year. Review of Systems Review of Systems: Constitutional: Denies fever, denies Chills Eyes: denies blurry vision ENT: denies sore throat CVS: denies chest pain Respiratory: dyspnea GI: no abdominal pain : denies dysuria MSK: denies neck pain Skin: denies rash Neuro: denies specific motor weakness Psych: denies suicidal ideation Endocrine: denies heat/cold intolerance Hematologic: denies easy bleeding Allergy: denies hives [facility] Medical History BPH (benign prostatic hyperplasia) COPD (chronic obstructive pulmonary disease) COPD (chronic obstructive pulmonary disease) HTN (hypertension) Hypoxemia Family History Other CAD (coronary artery disease) Surgical History H/O hernia repair Social History (Updated 04/05/21 @ 17:10 by Stan Lockhart MD) Household Members: None Housing: Apartment Do you presently have visiting nurse or other home services: No Alcohol intake: current Alcohol intake frequency: holidays/special occasions only Patient Tobacco Use Status: Former Tobacco user Advance Directives: No Advance Directives Information Provided: No service: No Current occupational status: disabled Meds Allergies Allergy/AdvReac Type Severity Reaction Status Date / Time No Known Allergies Allergy Verified 03/01/21 10:26 Active Medications: Current Medications Acetaminophen (Acetaminophen 325 Mg Tablet) 650 mg PO Q6H PRN PRN Reason: Pain, Mild (Pain Scale 1-3) Albuterol/Ipratropium (Albuterol/Iprat 2.5/0.5mg 3 Ml Ampul.Neb) 3 ml INHALE RQ4H PRN PRN Reason: sob Enoxaparin Sodium (Enoxaparin Sodium 40 Mg/0.4 Ml Syringe) 40 mg SUBCUT Q24H REPLACED BY [facility] Methylprednisolone Sodium Succinate (Methylprednisolone Sod Succ 125 Mg/2 Ml Vial) 60 mg IVPUSH Q12H REPLACED BY [facility] Pharmacy Consult (Consult Rx Perform Med Rec) 1 each MISCELLANE ONCE PRN PRN Reason: Consult order Pharmacy Consult (Consult Rx Perform Med Rec) 1 each MISCELLANE ONCE PRN PRN Reason: Consult order Sodium Chloride (0.9 % Sodium Chloride Flush 3 Ml Syringe) 3 ml IVFLUSH QSHIFT REPLACED BY [facility] Home Medications Medication Instructions Recorded Confirmed Last Taken Type aspirin 81 mg chewable tablet 1 tab PO DAILY 06/08/20 04/05/21 04/05/21 History fluticasone furoate 200 1 puff PO DAILY 06/08/20 04/05/21 04/05/21 History mcg-vilanterol 25 mcg/dose inhalation powder (Breo Ellipta) lisinopril 10 mg tablet 1 tab PO DAILY 06/08/20 04/05/21 04/05/21 History pravastatin 40 mg tablet 1 tab PO DAILY 06/08/20 04/05/21 04/05/21 History tamsulosin 0.4 mg capsule 1 cap PO DAILY 06/08/20 04/05/21 04/05/21 History albuterol sulfate 90 mcg/actuation 2 puff INHALATION Q4H PRN 03/01/21 04/05/21 Unknown History aerosol inhaler Physical Exam Vital Signs and Narrative: Vital Signs: Last Vital Signs Temp 98 F 04/05/21 14:13 Pulse 88 04/05/21 16:00 Resp 14 04/05/21 16:00 BP 118/68 04/05/21 16:00 Pulse Ox 90 L 04/05/21 16:00 Oxygen Flow Rate 3 04/05/21 10:29 BMI result Body Mass Index 37.5 General: no acute distress, pale HEENT: atraumatic Neck: normal to visual inspection CVS: S1, S2, RRR Resp: diminished, wheezy Chest: non tender GI: soft, non tender, non distended : no CVA tenderness Skin: no rashes Extremities: no edema Neuro: Oriented X3, grossly intact Psych: cooperative Results Labs CBC and Chem 7: 04/05/21 13:28 04/05/21 12:23 Labs: Laboratory Results - last 24 hr 04/05/21 04/05/21 04/05/21 12:22 12:23 13:28 MCV 67.6 L MCH 16.4 L MCHC 24.3 L RDW 21.4 H Plt Count 275 MPV Not Reportable Immature Gran % (Auto) 0.4 Neut % (Auto) 83.6 H Lymph % (Auto) 9.9 L [place] % (Auto) 3.5 Eos % (Auto) 1.0 Baso % (Auto) 1.6 Lymph # (Auto) 0.5 L [place] # (Auto) 0.2 Eos # (Auto) 0.1 Baso # (Auto) 0.1 Abs Immat Gran (auto) 0.02 Absolute Neuts (auto) 4.3 Absolute Nucleated RBC 0.060 H Nucleated RBC % (auto) 1.2 H Smear Tech's Comments VERIFIED D-Dimer High Sensitivty 228 Anion Gap 10 L Estim Creat Clear Calc 84.2 Estimated GFR > 60 Random Glucose 86 Lactic Acid Calcium 9.1 Magnesium 2.1 Iron 14 L TIBC 483 H % Saturation 3 L Unsat Iron Binding 469 Total Bilirubin 1.0 AST 13 ALT 8 Alkaline Phosphatase 62 Troponin I High Sens B-Natriuretic Peptide Total Protein 6.2 L Albumin 3.7 Influenza Type A (PCR) Influenza Type B (PCR) RSV RNA Qual (PCR) SARS-CoV-2 RNA (RT-PCR) 04/05/21 04/05/21 04/05/21 13:28 13:28 13:28 MCV MCH MCHC RDW Plt Count MPV Immature Gran % (Auto) Neut % (Auto) Lymph % (Auto) [place] % (Auto) Eos % (Auto) Baso % (Auto) Lymph # (Auto) [place] # (Auto) Eos # (Auto) Baso # (Auto) Abs Immat Gran (auto) Absolute Neuts (auto) Absolute Nucleated RBC Nucleated RBC % (auto) Smear Tech's Comments D-Dimer High Sensitivty Anion Gap Estim Creat Clear Calc Estimated GFR Random Glucose Lactic Acid 1.9 Calcium Magnesium Iron TIBC % Saturation Unsat Iron Binding Total Bilirubin AST ALT Alkaline Phosphatase Troponin I High Sens 7.0 B-Natriuretic Peptide 243 H Total Protein Albumin Influenza Type A (PCR) Influenza Type B (PCR) RSV RNA Qual (PCR) SARS-CoV-2 RNA (RT-PCR) 04/05/21 15:36 MCV MCH MCHC RDW Plt Count MPV Immature Gran % (Auto) Neut % (Auto) Lymph % (Auto) [place] % (Auto) Eos % (Auto) Baso % (Auto) Lymph # (Auto) [place] # (Auto) Eos # (Auto) Baso # (Auto) Abs Immat Gran (auto) Absolute Neuts (auto) Absolute Nucleated RBC Nucleated RBC % (auto) Smear Tech's Comments D-Dimer High Sensitivty Anion Gap Estim Creat Clear Calc Estimated GFR Random Glucose Lactic Acid Calcium Magnesium Iron TIBC % Saturation Unsat Iron Binding Total Bilirubin AST ALT Alkaline Phosphatase Troponin I High Sens B-Natriuretic Peptide Total Protein Albumin Influenza Type A (PCR) NEGATIVE Influenza Type B (PCR) NEGATIVE RSV RNA Qual (PCR) NEGATIVE SARS-CoV-2 RNA (RT-PCR) NEGATIVE Imaging Radiologist's Impressions: Impressions Chest X-Ray 04/05/21 11:22 IMPRESSION: Improved appearance of the lung parenchyma but there is residual or recurrent atypical infection pattern as above. No pleural disease. Chest CT 04/05/21 15:52 IMPRESSION: Stable enlarged hilar and mediastinal lymph nodes. Enlarged heart, increased peripheral interstitial markings and small bilateral pleural effusions. Findings are questionable for mild CHF. Differential would include interstitial lung disease. Stable 5 mm superior segment right lower lobe pulmonary nodule. 4 mm right lower lobe pulmonary nodule base that cannot be compared with prior exam. Fleischner guidelines were followed. Assessment and Plan (1) COPD (chronic obstructive pulmonary disease): Status: Acute 71-year-old male presented with shortness of breath Chronic hypoxic respiratory failure with acute decompensation COPD complicated by symptomatic iron deficiency Steroids, bronchodilators Will transfuse 1 unit PRBC, follow-up repeat CBC iron deficiency source likely due to chronic blood loss anemia from epistaxis for which he should follow-up with ENT. Patient should also follow up with GI as outpatient to rule out any GI source. hold asa htn lisinopril bph flomax hld statin Quality Stroke Does the patient have a stroke diagnosis?: No VTE Prior VTE?: No VTE Risk Level:: Medical - moderate - high VTE Device Contraindication: Treatment Not Indicated VTE Drug Contraindication: N/A - Med Ordered
--- NOTE | 2021-04-05 17:15 | PHA.MEDREC ---
med rec complete, no issues Pharmacy Consult ? Medication Reconciliation Pharmacy has completed the medication reconciliation.
[2021-04-06] VITALS (9 sets, daily range): BP systolic 110–133; BP diastolic 54–76; PULSE 77–109; RESP 17–20; TEMP 36.6–37; O2SAT 92–99
[2021-04-06] MEDS: methylPREDNISolone Sod Succ 125 MG/2 ML VIAL 60 MG IVPUSH ×3 (01:06→21:14)
[2021-04-06 07:00] LABS: Hematocrit 33.2 % (42.0-52.0); Hemoglobin 8.4 g/dl (14.0-18.0); Mean Corpuscular HGB Conc 25.3 g/dl (31.0-36.0); Mean Corpuscular Volume 67.3 fL (80.0-98.0); Platelet Count 244 X10*3/uL (160-400); Red Blood Count 4.93 X10*6/uL (4.60-5.80); Red Cell Distribution Width 21.7 % (11.0-16.0); White Blood Count 7.2 X10*3/uL (4.8-10.8)
[2021-04-06 07:01] LABS: NRBC Pct Auto 2.6 /100WBC (0.0-0.2)
[2021-04-06 07:12] LABS: Anion Gap 12 (12-20); Blood Urea Nitrogen 20 mg/dL (9-16); Calcium 9.2 mg/dL (8.4-10.2); Carbon Dioxide 21 mmol/L (22-29); Chloride 111 mmol/L (96-108); Creatinine Clr Calc Pharmacy 86.1; Estimated Glomerular Filt Rate > 60; Glucose Random 118 mg/dL (60-115); Potassium 4.7 mmol/L (3.3-5.1); Sodium 139 mmol/L (135-145)
[2021-04-06] MEDS: lisinopriL 10 MG TABLET PO (08:25)
[2021-04-06] MEDS: 0.9 % Sodium Chloride Flush 3 ML SYRINGE IVFLUSH ×3 (08:27→21:14)
[2021-04-06] MEDS: Tamsulosin HCL 0.4 MG CAPSULE PO (08:27)
[2021-04-06] MEDS: Pravastatin Sodium 40 MG TABLET PO (08:28)
[2021-04-06] MEDS: Fluticasone/Vilanterol 200/25 BLST.W.DEV 1 PUFF INHALE (08:31)
--- NOTE | 2021-04-06 08:37 | PC.NURSE ---
Pt A&Ox3, eating breakfast at this time, no complaints of pain, sits at the bedside to use the urinal. Lungs with coarse crackles in the bases, call smith within reach, urinal emptied for 250ml of dark urine. VS as charted, awaiting bed assignment, barrera continue to monitor.
[2021-04-06] MEDS: Albuterol/Iprat 2.5/0.5MG 3 ML AMPUL.NEB INHALE ×3 (12:09→20:08)
--- NOTE | 2021-04-06 12:14 | P.PNIM_ITS ---
Subjective Subjective Date of Service: 04/06/21 Interval History: cc: sob itnerval history: no improvement Cardiovascular Cardiovascular: Reports no additional cardiovascular complaints Gastrointestinal Gastrointestinal: Reports no additional gastrointestinal complaints Physical Exam Vital Signs: Vital Signs: Last Vital Signs Temp 98.2 F 04/06/21 05:02 Pulse 84 04/06/21 12:12 Resp 18 04/06/21 12:12 BP 110/54 L 04/06/21 08:25 Pulse Ox 94 04/06/21 06:45 Oxygen Flow Rate 3 04/05/21 10:29 BMI result Body Mass Index 37.5 General: AO X 3, dyspneic Resp: crackles at base, wheezes, accessory muscles used CVS: S1,S2,RRR GI: soft, non tender, non distended Neuro: motor grossly intact, alert Psych: appropriate affect, appropriate insight Objective Data Active Medications Acetaminophen (Acetaminophen 325 Mg Tablet) 650 mg PO Q6H PRN PRN Reason: Pain, Mild (Pain Scale 1-3) Albuterol/Ipratropium (Albuterol/Iprat 2.5/0.5mg 3 Ml Ampul.Neb) 3 ml INHALE Q4H [facility] Last Admin: 04/06/21 12:09 Dose: 3 ml Documented by: HERMILO Enoxaparin Sodium (Enoxaparin Sodium 40 Mg/0.4 Ml Syringe) 40 mg SUBCUT Q24H [facility] Last Admin: 04/05/21 19:11 Dose: Not Given Documented by: EARNEST Non-Admin Reason: Patient Refused Fluticasone/Vilanterol (Fluticasone/Vilanterol 200/25 Blst.W.Dev) 1 puff INHALE RDAILY [facility] Last Admin: 04/06/21 08:31 Dose: 1 puff Documented by: TA Lisinopril (Lisinopril 10 Mg Tablet) 10 mg PO DAILY [facility]; Protocol Last Admin: 04/06/21 08:25 Dose: 10 mg Documented by: TA Methylprednisolone Sodium Succinate (Methylprednisolone Sod Succ 125 Mg/2 Ml Vial) 60 mg IVPUSH Q12H [facility] Last Admin: 04/06/21 08:25 Dose: 60 mg Documented by: TA Pharmacy Consult (Consult Rx Perform Med Rec) 1 each MISCELLANE ONCE PRN PRN Reason: Consult order Pharmacy Consult (Consult Rx Perform Med Rec) 1 each MISCELLANE ONCE PRN PRN Reason: Consult order Pravastatin Sodium (Pravastatin Sodium 40 Mg Tablet) 40 mg PO DAILY [facility] Last Admin: 04/06/21 08:28 Dose: 40 mg Documented by: TA Sodium Chloride (0.9 % Sodium Chloride Flush 3 Ml Syringe) 3 ml IVFLUSH QSHIFT [facility] Last Admin: 04/06/21 08:27 Dose: 3 ml Documented by: TA Tamsulosin HCl (Tamsulosin Hcl 0.4 Mg Capsule) 0.4 mg PO DAILY [facility] Last Admin: 04/06/21 08:27 Dose: 0.4 mg Documented by: TA Labs CBC & Chem 7: 04/06/21 06:11 04/06/21 06:11 Labs: Laboratory Results - last 24 hr 04/05/21 04/05/21 04/05/21 12:22 12:23 13:28 MCV 67.6 L MCH 16.4 L MCHC 24.3 L RDW 21.4 H Plt Count 275 MPV Not Reportable Immature Gran % (Auto) 0.4 Neut % (Auto) 83.6 H Lymph % (Auto) 9.9 L [place] % (Auto) 3.5 Eos % (Auto) 1.0 Baso % (Auto) 1.6 Lymph # (Auto) 0.5 L [place] # (Auto) 0.2 Eos # (Auto) 0.1 Baso # (Auto) 0.1 Abs Immat Gran (auto) 0.02 Absolute Neuts (auto) 4.3 Absolute Nucleated RBC 0.060 H Nucleated RBC % (auto) 1.2 H Smear Tech's Comments VERIFIED Smear Path Review D-Dimer High Sensitivty 228 Anion Gap 10 L Estim Creat Clear Calc 84.2 Estimated GFR > 60 Random Glucose 86 Lactic Acid Calcium 9.1 Magnesium 2.1 Iron 14 L TIBC 483 H % Saturation 3 L Unsat Iron Binding 469 Total Bilirubin 1.0 AST 13 ALT 8 Alkaline Phosphatase 62 Troponin I High Sens B-Natriuretic Peptide Total Protein 6.2 L Albumin 3.7 Influenza Type A (PCR) Influenza Type B (PCR) RSV RNA Qual (PCR) SARS-CoV-2 RNA (RT-PCR) Blood Type Antibody Screen Crossmatch 04/05/21 04/05/21 04/05/21 13:28 13:28 13:28 MCV MCH MCHC RDW Plt Count MPV Immature Gran % (Auto) Neut % (Auto) Lymph % (Auto) [place] % (Auto) Eos % (Auto) Baso % (Auto) Lymph # (Auto) [place] # (Auto) Eos # (Auto) Baso # (Auto) Abs Immat Gran (auto) Absolute Neuts (auto) Absolute Nucleated RBC Nucleated RBC % (auto) Smear Tech's Comments Smear Path Review D-Dimer High Sensitivty Anion Gap Estim Creat Clear Calc Estimated GFR Random Glucose Lactic Acid 1.9 Calcium Magnesium Iron TIBC % Saturation Unsat Iron Binding Total Bilirubin AST ALT Alkaline Phosphatase Troponin I High Sens 7.0 B-Natriuretic Peptide 243 H Total Protein Albumin Influenza Type A (PCR) Influenza Type B (PCR) RSV RNA Qual (PCR) SARS-CoV-2 RNA (RT-PCR) Blood Type Antibody Screen Crossmatch 04/05/21 04/05/21 04/06/21 15:36 18:13 06:11 MCV 67.3 L MCH 17.0 L MCHC 25.3 L RDW 21.7 H Plt Count 244 MPV Not Reportable Immature Gran % (Auto) Neut % (Auto) Lymph % (Auto) [place] % (Auto) Eos % (Auto) Baso % (Auto) Lymph # (Auto) [place] # (Auto) Eos # (Auto) Baso # (Auto) Abs Immat Gran (auto) Absolute Neuts (auto) Absolute Nucleated RBC 0.190 H Nucleated RBC % (auto) 2.6 H Smear Tech's Comments Smear Path Review SEE NOTE D-Dimer High Sensitivty Anion Gap Estim Creat Clear Calc Estimated GFR Random Glucose Lactic Acid Calcium Magnesium Iron TIBC % Saturation Unsat Iron Binding Total Bilirubin AST ALT Alkaline Phosphatase Troponin I High Sens B-Natriuretic Peptide Total Protein Albumin Influenza Type A (PCR) NEGATIVE Influenza Type B (PCR) NEGATIVE RSV RNA Qual (PCR) NEGATIVE SARS-CoV-2 RNA (RT-PCR) NEGATIVE Blood Type A Positive Antibody Screen NEGATIVE Crossmatch See Detail 04/06/21 06:11 MCV MCH MCHC RDW Plt Count MPV Immature Gran % (Auto) Neut % (Auto) Lymph % (Auto) [place] % (Auto) Eos % (Auto) Baso % (Auto) Lymph # (Auto) [place] # (Auto) Eos # (Auto) Baso # (Auto) Abs Immat Gran (auto) Absolute Neuts (auto) Absolute Nucleated RBC Nucleated RBC % (auto) Smear Tech's Comments Smear Path Review D-Dimer High Sensitivty Anion Gap 12 Estim Creat Clear Calc 86.1 Estimated GFR > 60 Random Glucose 118 H D Lactic Acid Calcium 9.2 Magnesium Iron TIBC % Saturation Unsat Iron Binding Total Bilirubin AST ALT Alkaline Phosphatase Troponin I High Sens B-Natriuretic Peptide Total Protein Albumin Influenza Type A (PCR) Influenza Type B (PCR) RSV RNA Qual (PCR) SARS-CoV-2 RNA (RT-PCR) Blood Type Antibody Screen Crossmatch Assessment and Plan (1) Hypoxemia: Status: Acute Assessment and Plan: ? 71-year-old male presented with shortness of breath Chronic hypoxic respiratory failure with acute decompensation COPD complicated by symptomatic iron deficiency Steroids, bronchodilators transfused 1 unit PRBC 04/05, repeat hgb 8.4 (from 7.8), monitor iron deficiency source likely due to chronic blood loss anemia from epistaxis for which he should follow-up with ENT.? Patient should also follow up with GI as outpatient to rule out any GI source. hold asa acute on chronic diastolic chf IV lasix 40mg times one, monitor htn lisinopril bph flomax hld statin Quality Stroke Does the patient have a stroke diagnosis?: No VTE Prior VTE?: No VTE Risk Level:: Medical - moderate - high VTE Device Contraindication: Treatment Not Indicated VTE Drug Contraindication: N/A - Med Ordered
[2021-04-06] MEDS: Furosemide 40 MG/4 ML VIAL IVPUSH (12:16)
--- NOTE | 2021-04-06 12:25 | MHC.CM.PN ---
Addendum entered by Rosario Nuñez 04/06/21 13:17: [facility] ACCEPTING REFERRAL HOWEVER WILL BE UNABLE TO SEE PT PRIOR TO SATURDAY. Addendum entered by Rosario Nuñez 04/06/21 13:01: NEW HCP COMPLETED REQUESTED BY PATIENT Original Note: CM MET WITH PT IN ED OVERFLOW 06. PT REPORTS HE LIVES ALONE AND IS INDEPENDENT AT BASELINE PT REPORTS HE HAS HOME OXYGEN HOWEVER ONLY USES IT WHEN HE IS DOING SOMETHING THAT REQUIRES SIGNIFICANT EXERTION. PT REPORTS HE GOES TO THE [facility] FOR PRIMARY CARE PT REPORTS HE DID HAVE A HCP NAMING HIS SISTER, HOWEVER HE WOULD LIKE TO CHANGE IT TO HIS FRIENDS, CARMINA RODRIGUEZ [phone], AND SISSY CHAUDHARY [phone]. HE REPORTS HIS SISTER IS VERY BUSY ASSISTING THEIR OTHER SISTER. IMM DELIVERED, COPY SENT TO [facility] CURRENT DC PLAN IS HOME, PT IS REQUESTING [facility] REFERRAL [facility] TO TRANSPORT
--- NOTE | 2021-04-06 13:18 | PC.NURSE ---
Pt desat into the 70's from sitting at bedside to urinate. SOB to pt from excertion. Couched on pursed lip breathing techniques. Pt aware of O2 goals between 88-92% at this time. Increased o2 from 2L to 4L and O2 sat maintaining in the 88-92 range. Awaiting bed assignment. will continue to monitor.
--- NOTE | 2021-04-06 16:28 | PC.NURSE ---
Pt A&Ox3, aware for plan to go upstairs to the floor since he is not being discharged today. No complaints of pain at this time, remains on 4L NC. Report to Yamila.
[2021-04-06] MEDS: Benzonatate 100 MG CAPSULE PO (21:14)
[2021-04-07] VITALS (8 sets, daily range): BP systolic 107–129; BP diastolic 57–69; PULSE 83–91; RESP 16–20; TEMP 36–36.5; O2SAT 92–97
[2021-04-07 05:56] LABS: Hemoglobin 8.2 g/dl (14.0-18.0); NRBC Pct Auto 0.7 /100WBC (0.0-0.2)
[2021-04-07 05:58] LABS: Hematocrit 33.1 % (42.0-52.0); Mean Corpuscular HGB Conc 24.8 g/dl (31.0-36.0); Mean Corpuscular Volume 68.7 fL (80.0-98.0); Platelet Count 262 X10*3/uL (160-400); Red Blood Count 4.82 X10*6/uL (4.60-5.80); Red Cell Distribution Width 22.1 % (11.0-16.0); White Blood Count 14.8 X10*3/uL (4.8-10.8)
[2021-04-07 06:08] LABS: PLT ABN DIST 1
[2021-04-07 06:30] LABS: Anion Gap 10 (12-20); Blood Urea Nitrogen 28 mg/dL (9-16); Calcium 9.3 mg/dL (8.4-10.2); Carbon Dioxide 25 mmol/L (22-29); Chloride 110 mmol/L (96-108); Creatinine Clr Calc Pharmacy 63.5; Estimated Glomerular Filt Rate > 60; Glucose Fasting 131 mg/dL (60-99); Magnesium 2.4 mg/dL (1.6-2.6); Potassium 5.4 mmol/L (3.3-5.1); Sodium 140 mmol/L (135-145)
[2021-04-07] MEDS: lisinopriL 10 MG TABLET PO (07:34)
[2021-04-07] MEDS: Pravastatin Sodium 40 MG TABLET PO (07:35)
[2021-04-07] MEDS: 0.9 % Sodium Chloride Flush 3 ML SYRINGE IVFLUSH ×3 (07:35→21:16)
[2021-04-07] MEDS: Tamsulosin HCL 0.4 MG CAPSULE PO (07:35)
[2021-04-07] MEDS: methylPREDNISolone Sod Succ 125 MG/2 ML VIAL 60 MG IVPUSH ×2 (09:26→21:16)
--- NOTE | 2021-04-07 09:39 | HO.PM.IMPN ---
Subjective Subjective Date of Service: 04/07/21 Interval History: cc: sob interval history: still sob, some improvement Cardiovascular Cardiovascular: Reports no additional cardiovascular complaints Gastrointestinal Gastrointestinal: Reports no additional gastrointestinal complaints Physical Exam Vital Signs: Vital Signs: Last Vital Signs Temp 96.8 F 04/07/21 07:07 Pulse 85 04/07/21 07:07 Resp 18 04/07/21 07:07 BP 129/62 04/07/21 07:07 Pulse Ox 96 04/07/21 07:07 Oxygen Flow Rate 3 04/05/21 10:29 BMI result Body Mass Index 37.5 General: AO X 3, No acute distress Resp:? crackles at base, wheezes, mild accessory muscles used CVS: S1,S2,RRR GI: soft, non tender, non distended Neuro:? motor grossly intact, alert Psych: appropriate affect, appropriate insight? Objective Data Active Medications Acetaminophen (Acetaminophen 325 Mg Tablet) 650 mg PO Q6H PRN PRN Reason: Pain, Mild (Pain Scale 1-3) Albuterol/Ipratropium (Albuterol/Iprat 2.5/0.5mg 3 Ml Ampul.Neb) 3 ml INHALE RQ4H [facility] Last Admin: 04/07/21 00:27 Dose: Not Given Documented by: JOEL Non-Admin Reason: Patient Asleep Benzonatate (Benzonatate 100 Mg Capsule) 100 mg PO TID PRN PRN Reason: Cough Last Admin: 04/06/21 21:14 Dose: 100 mg Documented by: JEFFREY Enoxaparin Sodium (Enoxaparin Sodium 40 Mg/0.4 Ml Syringe) 40 mg SUBCUT Q24H [facility] Last Admin: 04/06/21 16:40 Dose: Not Given Documented by: GEOFF Non-Admin Reason: Patient Refused Fluticasone/Vilanterol (Fluticasone/Vilanterol 200/25 Blst.W.Dev) 1 puff INHALE RDAILY [facility] Last Admin: 04/06/21 08:31 Dose: 1 puff Documented by: VINNIE-RAMSK Lisinopril (Lisinopril 10 Mg Tablet) 10 mg PO DAILY [facility]; Protocol Last Admin: 04/07/21 07:34 Dose: 10 mg Documented by: GEOFF Methylprednisolone Sodium Succinate (Methylprednisolone Sod Succ 125 Mg/2 Ml Vial) 60 mg IVPUSH Q12H [facility] Last Admin: 04/07/21 09:26 Dose: 60 mg Documented by: GEOFF Pharmacy Consult (Consult Rx Perform Med Rec) 1 each MISCELLANE ONCE PRN PRN Reason: Consult order Pharmacy Consult (Consult Rx Perform Med Rec) 1 each MISCELLANE ONCE PRN PRN Reason: Consult order Pravastatin Sodium (Pravastatin Sodium 40 Mg Tablet) 40 mg PO DAILY [facility] Last Admin: 04/07/21 07:35 Dose: 40 mg Documented by: GEOFF Sodium Chloride (0.9 % Sodium Chloride Flush 3 Ml Syringe) 3 ml IVFLUSH QSHIFT [facility] Last Admin: 04/07/21 07:35 Dose: 3 ml Documented by: GEOFF Tamsulosin HCl (Tamsulosin Hcl 0.4 Mg Capsule) 0.4 mg PO DAILY [facility] Last Admin: 04/07/21 07:35 Dose: 0.4 mg Documented by: GEOFF Labs CBC & Chem 7: 04/07/21 05:14 04/07/21 05:14 Labs: Laboratory Results - last 24 hr 04/05/21 04/06/21 04/07/21 18:13 06:11 05:14 MCV 68.7 L MCH 17.0 L MCHC 24.8 L RDW 22.1 H Plt Count 262 MPV 10.0 Absolute Nucleated RBC 0.100 H Nucleated RBC % (auto) 0.7 H Smear Path Review SEE NOTE Anion Gap Estim Creat Clear Calc Estimated GFR Fasting Glucose Calcium Magnesium Crossmatch See Detail 04/07/21 05:14 MCV MCH MCHC RDW Plt Count MPV Absolute Nucleated RBC Nucleated RBC % (auto) Smear Path Review Anion Gap 10 L Estim Creat Clear Calc 63.5 Estimated GFR > 60 Fasting Glucose 131 H Calcium 9.3 Magnesium 2.4 Crossmatch Microbiology Microbiology Results: Microbiology 04/05/21 13:28 Blood Culture - Preliminary Blood - Venous No growth after 24 hours. 04/05/21 12:22 Blood Culture - Preliminary Blood - Venous No growth after 24 hours. Assessment and Plan (1) Hypoxemia: Status: Acute Assessment and Plan: ? 71-year-old male presented with shortness of breath Chronic hypoxic respiratory failure with acute decompensation COPD complicated by symptomatic iron deficiency Steroids, bronchodilators transfused 1 unit PRBC 04/05, hgb wanda to 8.4 (from 7.8), 8.2 today, monitor iron deficiency source likely due to chronic blood loss anemia from epistaxis for which he should follow-up with ENT.? Patient should also follow up with GI as outpatient to rule out any GI source. hold asa acute on chronic diastolic chf IV lasix 40mg times one, monitor increased creatinine, bun, bicarb, less in favor of volume overload, will hold off on further diuretics for now mild hyperkalemia 5.4, monitor closely while on lisinopril, will hold if >5.5 htn continue lisinopril for now, monitor K as above bph flomax hld statin Quality Stroke Does the patient have a stroke diagnosis?: No VTE Prior VTE?: No VTE Risk Level:: Medical - moderate - high VTE Device Contraindication: Treatment Not Indicated VTE Drug Contraindication: N/A - Med Ordered
[2021-04-07] MEDS: Albuterol/Iprat 2.5/0.5MG 3 ML AMPUL.NEB INHALE ×3 (11:40→20:32)
[2021-04-07] MEDS: Benzonatate 100 MG CAPSULE PO (15:48)
[2021-04-08] VITALS (12 sets, daily range): BP systolic 112–128; BP diastolic 56–72; PULSE 77–98; RESP 16–18; TEMP 36.1–36.6; O2SAT 92–95
[2021-04-08 07:16] LABS: Hemoglobin 8.7 g/dl (14.0-18.0); NRBC Pct Auto 0.5 /100WBC (0.0-0.2)
[2021-04-08 07:17] LABS: Hematocrit 34.9 % (42.0-52.0); Mean Corpuscular HGB Conc 24.9 g/dl (31.0-36.0); Mean Corpuscular Hemoglobin 17.1 pg (27.0-33.0); Mean Corpuscular Volume 68.4 fL (80.0-98.0); Mean Platelet Volume 10.1 fL (9.4-12.4); Platelet Count 290 X10*3/uL (160-400); White Blood Count 17.7 X10*3/uL (4.8-10.8)
[2021-04-08 07:29] LABS: PLT ABN DIST 1
[2021-04-08 07:36] LABS: Anion Gap 12 (12-20); Blood Urea Nitrogen 27 mg/dL (9-16); Calcium 9.5 mg/dL (8.4-10.2); Carbon Dioxide 23 mmol/L (22-29); Chloride 107 mmol/L (96-108); Creatinine Clr Calc Pharmacy 79.7; Estimated Glomerular Filt Rate > 60; Glucose Fasting 118 mg/dL (60-99); Potassium 4.9 mmol/L (3.3-5.1); Sodium 137 mmol/L (135-145)
[2021-04-08] MEDS: 0.9 % Sodium Chloride Flush 3 ML SYRINGE IVFLUSH ×3 (07:59→23:52)
[2021-04-08] MEDS: Tamsulosin HCL 0.4 MG CAPSULE PO (09:24)
[2021-04-08] MEDS: lisinopriL 10 MG TABLET PO (09:24)
[2021-04-08] MEDS: Pravastatin Sodium 40 MG TABLET PO (09:24)
[2021-04-08] MEDS: Fluticasone/Vilanterol 200/25 BLST.W.DEV 1 PUFF INHALE (09:25)
[2021-04-08] MEDS: methylPREDNISolone Sod Succ 125 MG/2 ML VIAL 60 MG IVPUSH ×2 (09:25→21:19)
[2021-04-08] MEDS: Albuterol/Iprat 2.5/0.5MG 3 ML AMPUL.NEB INHALE ×4 (09:25→20:28)
--- NOTE | 2021-04-08 09:58 | P.PNIM_ITS ---
Subjective Subjective Date of Service: 04/08/21 Interval History: cc: sob interval history: still sob, some improvement Cardiovascular Cardiovascular: Reports no additional cardiovascular complaints Gastrointestinal Gastrointestinal: Reports no additional gastrointestinal complaints Physical Exam Vital Signs: Vital Signs: Last Vital Signs Temp 97.5 F 04/08/21 07:34 Pulse 81 04/08/21 09:26 Resp 18 04/08/21 09:26 BP 122/72 04/08/21 09:24 Pulse Ox 92 04/08/21 07:34 Oxygen Flow Rate 3 04/05/21 10:29 BMI result Body Mass Index 37.5 General: AO X 3, No acute distress Resp:? crackles at base, wheezes, mild accessory muscles used CVS: S1,S2,RRR GI: soft, non tender, non distended Neuro:? motor grossly intact, alert Psych: appropriate affect, appropriate insight? Objective Data Active Medications Acetaminophen (Acetaminophen 325 Mg Tablet) 650 mg PO Q6H PRN PRN Reason: Pain, Mild (Pain Scale 1-3) Albuterol/Ipratropium (Albuterol/Iprat 2.5/0.5mg 3 Ml Ampul.Neb) 3 ml INHALE RQ4H [facility] Last Admin: 04/08/21 09:25 Dose: 3 ml Documented by: TRICE Benzonatate (Benzonatate 100 Mg Capsule) 100 mg PO TID PRN PRN Reason: Cough Last Admin: 04/07/21 15:48 Dose: 100 mg Documented by: JEFFREY Enoxaparin Sodium (Enoxaparin Sodium 40 Mg/0.4 Ml Syringe) 40 mg SUBCUT Q24H [facility] Last Admin: 04/07/21 17:36 Dose: Not Given Documented by: JEFFREY Non-Admin Reason: Patient Refused Fluticasone/Vilanterol (Fluticasone/Vilanterol 200/25 Blst.W.Dev) 1 puff INHALE RDAILY [facility] Last Admin: 04/08/21 09:25 Dose: 1 puff Documented by: TRICE Lisinopril (Lisinopril 10 Mg Tablet) 10 mg PO DAILY [facility]; Protocol Last Admin: 04/08/21 09:24 Dose: 10 mg Documented by: MELISSA Methylprednisolone Sodium Succinate (Methylprednisolone Sod Succ 125 Mg/2 Ml Vial) 60 mg IVPUSH Q12H [facility] Last Admin: 04/08/21 09:25 Dose: 60 mg Documented by: MELISSA Pharmacy Consult (Consult Rx Perform Med Rec) 1 each MISCELLANE ONCE PRN PRN Reason: Consult order Pharmacy Consult (Consult Rx Perform Med Rec) 1 each MISCELLANE ONCE PRN PRN Reason: Consult order Pravastatin Sodium (Pravastatin Sodium 40 Mg Tablet) 40 mg PO DAILY [facility] Last Admin: 04/08/21 09:24 Dose: 40 mg Documented by: MELISSA Sodium Chloride (0.9 % Sodium Chloride Flush 3 Ml Syringe) 3 ml IVFLUSH QSHIFT [facility] Last Admin: 04/08/21 07:59 Dose: 3 ml Documented by: MELISSA Tamsulosin HCl (Tamsulosin Hcl 0.4 Mg Capsule) 0.4 mg PO DAILY [facility] Last Admin: 04/08/21 09:24 Dose: 0.4 mg Documented by: MELISSA Labs CBC & Chem 7: 04/08/21 06:00 04/08/21 06:00 Labs: Laboratory Results - last 24 hr 04/08/21 04/08/21 06:00 06:00 MCV 68.4 L MCH 17.1 L MCHC 24.9 L RDW 23.0 H Plt Count 290 MPV 10.1 Absolute Nucleated RBC 0.080 H Nucleated RBC % (auto) 0.5 H Anion Gap 12 Estim Creat Clear Calc 79.7 Estimated GFR > 60 Fasting Glucose 118 H Calcium 9.5 Microbiology Microbiology Results: Microbiology 04/05/21 13:28 Blood Culture - Preliminary Blood - Venous No growth after 48 hours. 04/05/21 12:22 Blood Culture - Preliminary Blood - Venous No growth after 48 hours. Assessment and Plan (1) Hypoxemia: Status: Acute Assessment and Plan: ? 71-year-old male presented with shortness of breath Chronic hypoxic respiratory failure with acute decompensation COPD complicated by symptomatic iron deficiency Steroids, bronchodilators transfused 1 unit PRBC 04/05, hgb wanda to 8.4 (from 7.8), 8.7 today, monitor iron deficiency source likely due to chronic blood loss anemia from epistaxis for which he should follow-up with ENT.? Patient should also follow up with GI as outpatient to rule out any GI source. holding asa acute on chronic diastolic chf IV lasix 40mg times one on 04/06 appears improved mild hyperkalemia 5.4 on 04/07, now 4.9, monitor closely while on lisinopril, will hold if >5.5 htn continue lisinopril for now, monitor K as above bph flomax hld statin Quality Stroke Does the patient have a stroke diagnosis?: No VTE Prior VTE?: No VTE Risk Level:: Medical - moderate - high VTE Device Contraindication: Treatment Not Indicated VTE Drug Contraindication: N/A - Med Ordered
[2021-04-09 03:02] VITALS: BP 117/66; PULSE 81; RESP 18; TEMP 36.3; O2SAT 94
[2021-04-09 06:41] LABS: Red Cell Distribution Width 23.7 % (11.0-16.0)
[2021-04-09 06:43] LABS: Hematocrit 35.6 % (42.0-52.0); Hemoglobin 8.8 g/dl (14.0-18.0); Mean Corpuscular HGB Conc 24.7 g/dl (31.0-36.0); Mean Corpuscular Hemoglobin 17.1 pg (27.0-33.0); Mean Corpuscular Volume 69.3 fL (80.0-98.0); Mean Platelet Volume 10.3 fL (9.4-12.4); NRBC Pct Auto 0.8 /100WBC (0.0-0.2); Platelet Count 296 X10*3/uL (160-400); Red Blood Count 5.14 X10*6/uL (4.60-5.80); White Blood Count 13.9 X10*3/uL (4.8-10.8)
[2021-04-09 07:06] LABS: Anion Gap 14 (12-20); Blood Urea Nitrogen 28 mg/dL (9-16); Calcium 9.7 mg/dL (8.4-10.2); Carbon Dioxide 23 mmol/L (22-29); Chloride 106 mmol/L (96-108); Creatinine Clr Calc Pharmacy 83.2; Estimated Glomerular Filt Rate > 60; Glucose Fasting 132 mg/dL (60-99); Potassium 5.1 mmol/L (3.3-5.1); Sodium 138 mmol/L (135-145)
[2021-04-09 07:09] LABS: PLT ABN DIST 1
[2021-04-09 07:39] VITALS: BP 120/66; PULSE 83; RESP 18; TEMP 36; O2SAT 94
--- NOTE | 2021-04-09 08:23 | P.DS_ITS ---
DS: Providers Provider Date of Service: 04/09/21 Date of admission: 04/05/21 17:03 Primary care physician: Unknown Physician DS: Diagnosis Discharge Diagnosis (1) Hypoxemia: Status: Acute DS: Summary Hospital Course Hospital Course: patient was admitted for acute on chronic hypoxic respiratory failure due to acute decompensation of COPD and acute on chronic diastolic CHF and symptomatic iron deficiency. patient was treated with IV Lasix, IV Solu-Medrol, bronchodila tors. He was transfused 1 unit of packed red blood cells and hemoglobin raised appropriately. Iron deficiency was felt to be due to blood loss from epistaxis. Patient is advised to follow-up with ENT, he should also follow up with GI to rule out any GI source. Aspirin has been held as patient appears to only be on it for primary prophylaxis. Patient is feeling much better and will be dischar ged home on steroid taper. Time Spent with Patient Time attestation: Total time spent providing and/or coordinating discharge s ervices: Discharge coordination time: Greater than 30 minutes Quality: Stroke Does the patient have a stroke diagnosis?: No Physical Exam Vital Signs: Vital Signs: Last Vital Signs Temp 96.8 F 04/09/21 07:39 Pulse 83 04/09/21 07:39 Resp 18 04/09/21 07:39 BP 120/66 04/09/21 07:39 Pulse Ox 94 04/09/21 07:39 Oxygen Flow Rate 3 04/05/21 10:29 BMI result Body Mass Index 37.5 DS: Data Data Completed and Pending Labs on day of discharge: Laboratory Results - last 24 hr 04/09/21 04/09/21 06:03 06:03 WBC 13.9 H RBC 5.14 Hgb 8.8 L Hct 35.6 L MCV 69.3 L MCH 17.1 L MCHC 24.7 L RDW 23.7 H Plt Count 296 MPV 10.3 Absolute Nucleated RBC 0.110 H Nucleated RBC % (auto) 0.8 H Sodium 138 Potassium 5.1 Chloride 106 Carbon Dioxide 23 Anion Gap 14 BUN 28 H Creatinine 0.90 Estim Creat Clear Calc 83.2 Estimated GFR > 60 Fasting Glucose 132 H Calcium 9.7 Preliminary micro results at discharge 04/05/21 13:28 Blood Culture - Preliminary Blood - Venous No growth after 48 hours. 04/05/21 12:22 Blood Culture - Preliminary Blood - Venous No growth after 48 hours. Discharge Plan Discharge Patient Disposition: Home Health Service Discharge Diagnosis: copd, iron defeciency anemia Referrals: Shannan CLARK [Outside] - 1 Week Tommy White [Physician] - 1 Week (epistaxis) Physician,Unknown J [Primary Care Provider] - 1 Week Discharge Medications: New prednisone 20 mg tablet 40 mg PO DAILY Qty: 15 RF: 0 ferrous sulfate 325 mg (65 mg iron) tablet 325 mg PO DAILY Qty: 30 RF: 0 Continued pravastatin 40 mg tablet 1 tab PO DAILY RF: 0 tamsulosin 0.4 mg capsule 1 cap PO DAILY RF: 0 lisinopril 10 mg tablet 1 tab PO DAILY RF: 0 Breo Ellipta 200-25 mcg/dose blister with device 1 puff PO DAILY RF: 0 albuterol sulfate 90 mcg/actuation HFA aerosol inhaler 2 puff inhalation Q4H PRN (Reason: Respiratory Distress) RF: 0 Discontinued aspirin 81 mg tablet,chewable 1 tab PO DAILY RF: 0 Discharge Orders: Discharge Order (Routine); Ordered 04/09/21 Ordered By: Stan Lockhart Diet: advance to usual diet Activity on Discharge: As tolerated Stand Alone Forms: Patient Portal Discharge page Care Plan Goals: recovery Health Concerns: copd, iron defeciency anemia Plan of Treatment: prednisone taper, stop aspirin, follow up with ent and gi, start iron supplement Assessment: see above Discharge Date/Time: 04/09/21 12:00
[2021-04-09 08:33] VITALS: PULSE 83; RESP 18; O2SAT 94
[2021-04-09] MEDS: Albuterol/Iprat 2.5/0.5MG 3 ML AMPUL.NEB INHALE (08:33)
[2021-04-09] MEDS: Fluticasone/Vilanterol 200/25 BLST.W.DEV 1 PUFF INHALE (08:33)
--- NOTE | 2021-04-09 10:23 | P.F2F_ITS ---
Service Date Service Date: 04/09/21 Reasons for Services Reason for group home: medication management, medication treatment and teach disease management Homebound: Leaving the home is medically contraindicated at this time without the asist of a device and/or another person due th the listed conditions above and below. Reason homebound: unsteady gait / fall risk and shortness of breath with minimal effort Certification: Based on the above findings, I certify that this patient is confined to the home and needs intermittent group home care, adaptive physical education specialist apy and/or speech therapy, or continues to need occupational therapy. The patient is under my care, and I have initiated the establishment of the plan of care. The patient will be followed by a physician who will periodically review the plan of care.
[2021-04-09] MEDS: methylPREDNISolone Sod Succ 125 MG/2 ML VIAL 60 MG IVPUSH (10:28)
[2021-04-09] MEDS: Pravastatin Sodium 40 MG TABLET PO (10:30)
[2021-04-09] MEDS: Tamsulosin HCL 0.4 MG CAPSULE PO (10:30)
[2021-04-09 10:31] VITALS: BP 120/66; PULSE 83
[2021-04-09] MEDS: lisinopriL 10 MG TABLET PO (10:31)
[2021-04-09] MEDS: 0.9 % Sodium Chloride Flush 3 ML SYRINGE IVFLUSH (10:32)
--- NOTE | 2021-04-09 10:32 | MHC.CM.PN ---
PATIENT IS DC TODAY WITH A NEW [facility] THAT WILL START NEXT WEEK. PATIENT IS AWARE. PATIENT HAS TRANSPORT HOME TODAY FOR NOON IMM 04/08 IN CHART
--- NOTE | 2021-04-09 12:24 | MHC.CM.PN ---
Addendum entered by Chio Bland 04/09/21 12:30: PATIENT STAT @ 89% WITH TRANSITION FROM [facility] O2 TO HIS TANK. PRIOR TO FRIEND LEAVING THE PROPERTY, STATS WENT UP TO 92%. Original Note: PATIENT WAS STATING IN THE HIGH 70S ON RA. HE WAS REFUSING TO STAY DESPITE MULTIPLE ATTEMPTS O2 PLACED ON PATIENT ON HIS WAY DOWNSTAIRS AND HIS STATS INCREASED TO 95%. CALL TO FRIEND PROVIDING TRANSPORT ([phone]) AND WAS TOLD THAT PATIENT WILL NOT BE LEAVING WITHOUT HIS O2 TANK. FRIEND NOW HAS TANK, AND IT IS PLACED ON PATIENT WHO PLACED IT AT 3 LITRES VIA CANNULA. FRIEND AND PATIENT MADE AWARE OF IMPORTANCE OF MONITORING STATS BOTH IN AGREEMENT
== END 2021-04-09 12:00 | disposition home health service (06) | DRG 291 ==
LOC: HO.ED 16:39 → HO.EDOVER 17:09 → HO.S3 04-06 15:49
PROVIDERS: Admitting Provider Internal Medicine; Emergency Provider Emergency Medicine; Visit Provider Internal Medicine
DX: I11.0 Hypertensive heart disease with heart failure (principal); I50.33 Acute on chronic diastolic (congestive) heart failure; J96.21 Acute and chronic respiratory failure with hypoxia; J44.1 Chronic obstructive pulmonary disease with (acute) exacerbation; Z99.81 Dependence on supplemental oxygen; Z20.822 Contact with and (suspected) exposure to COVID-19; E87.5 Hyperkalemia; D50.9 Iron deficiency anemia, unspecified; E78.5 Hyperlipidemia, unspecified; N40.0 Benign prostatic hyperplasia without lower urinary tract symptoms; Z87.891 Personal history of nicotine dependence; Z79.899 Other long term (current) drug therapy
CPT/HCPCS: 0241U; 36415; 71045; 71260; 80048; 80053; 83540; 83605; 83735; 83880; 84484; 85025; 85027; 85379; 86850; 86900; 86901; 86923; 87040; 93005; 94640; 96365; 96375; 99285; J0696; J1940; J2930; P9016; Q9967

== ENCOUNTER 2022-04-29 06:14 | Inpatient (IN) | payer OTHER, SELFPAY ==
[2022-04-29] VITALS (12 sets, daily range): BP systolic 91–120; BP diastolic 57–82; PULSE 81–109; RESP 12–220; TEMP 36.1–36.9; O2SAT 87–96; BMI 36.8
--- NOTE | ~2022-04-29 | XR_ITS ---
EXAMINATION: XR CHEST CLINICAL INFORMATION: Follow-up for CHF. COMPARISON: 05/11/[address] scan dated 04/05/2021. TECHNIQUE: Frontal view of the chest was obtained. FINDINGS: Coarsened interstitial markings are seen bilaterally with mild right basilar linear markings. There is mild elevation of the right diaphragm. The heart and mediastinal structures are unremarkable. XR/XR chest 1V IMPRESSION: Coarsened interstitial markings consistent with known emphysema. Right basilar markings suggest atelectasis, mild increase in the previous study. A developing infiltrate cannot be excluded. Short-term repeat radiographic graphic follow-up is recommended, preferably including a lateral view.
--- NOTE | ~2022-04-29 | XR_ITS ---
EXAMINATION: XR CHEST CLINICAL INFORMATION: SOB COMPARISON: None TECHNIQUE: Frontal view of the chest was obtained. FINDINGS: The lungs are well-expanded and clear of acute pneumonic process.. The heart size is enlarged. There is bilateral prominence of pulmonary vascularity likely mild congestion. No gross bony abnormality seen XR/XR chest 1V IMPRESSION: Mild cardiomegaly with mild CHF.
--- NOTE | ~2022-04-29 | XR_ITS ---
EXAMINATION: XR chest 1V CLINICAL INFORMATION: Reason for Exam dyspnea COMPARISON: Chest radiograph 04/29/2022 TECHNIQUE: One view of the chest FINDINGS: Patchy bibasilar airspace opacities left greater than right which may reflect infection, aspiration or atelectasis. Indistinctness of the central pulmonary vasculature with increased interstitial opacities which may reflect superimposed edema. No pneumothorax or pleural effusion. Cardiac silhouette is mildly enlarged. XR/XR chest 1V IMPRESSION: Patchy bibasilar airspace opacities left greater than right which may reflect infection, aspiration or atelectasis. Indistinctness of the central pulmonary vasculature with increased interstitial opacities which may reflect superimposed edema, in the setting of a mildly enlarged cardiac silhouette.
--- NOTE | 2022-04-29 06:40 | ECG_ITS ---
Test Reason : SOB Blood Pressure : / mmHG Vent. Rate : 089 BPM Atrial Rate : 089 BPM P-R Int : 208 ms QRS Dur : 106 ms QT Int : 328 ms P-R-T Axes : 086 100 254 degrees QTc Int : 399 ms Normal sinus rhythm Pulmonary disease pattern Incomplete right bundle branch block Possible Right ventricular hypertrophy Nonspecific ST and T wave abnormality Abnormal ECG When compared with ECG of 05-APR-2021 11:41, ST now depressed in Anterior leads Nonspecific T wave abnormality now evident in Anterolateral leads Referred By: Michael Marte Electronically Signed By:RENEE BOOTH MD
[2022-04-29 07:00] LABS: MANUAL DIFF FLAG NO
[2022-04-29 07:05] LABS: Basophils Absolute Auto 0.1 X10*3/uL (0.0-0.2); Basophils Percent Auto 1.3 % (0-2); Eosinophils Percent Auto 0.7 % (0-4); Hematocrit 36.2 % (42.0-52.0); Hemoglobin 9.1 g/dl (14.0-18.0); Imm Gran Abs Auto 0.02 X10*3/uL (0.00-0.03); Imm Gran Pct Auto 0.3 % (0.0-0.4); Lymphocytes Absolute Auto 0.7 X10*3/uL (1.2-4.9); Lymphocytes Percent Auto 10.8 % (20-40); Mean Corpuscular HGB Conc 25.1 g/dl (31.0-36.0); Mean Corpuscular Hemoglobin 17.4 pg (27.0-33.0); Mean Corpuscular Volume 69.2 fL (80.0-98.0); Mean Platelet Volume 9.9 fL (9.4-12.4); Monocytes Absolute Auto 0.6 X10*3/uL (0.1-1.2); NRBC Pct Auto 1.5 /100WBC (0.0-0.2); Neutrophils Absolute Auto 4.7 x10*3/uL (2.0-8.3); Neutrophils Percent Auto 76.9 % (45-73); Platelet Count 272 X10*3/uL (160-400); Red Blood Count 5.23 X10*6/uL (4.60-5.80); Red Cell Distribution Width 24.4 % (11.0-16.0); White Blood Count 6.1 X10*3/uL (4.8-10.8)
[2022-04-29 07:09] LABS: INTERNATIONAL NORM RATIO 2.1 (0.9-1.1); Prothrombin Time 24.9 SEC (10.0-13.1)
--- NOTE | 2022-04-29 07:09 | ED_ITS ---
HPI - SOB/Dyspnea General Chief Complaint: Dyspnea Stated Complaint: DIFF BREATHING ON EXERTION [id number] Time Seen by Provider: 04/29/22 06:56 Source: patient and EMS Mode of arrival: EMS Limitations: no limitations History of Present Illness HPI Narrative: 72-year-old male presented to the ED for evaluation of shortness of breath symptoms started about 2 weeks ago has been having exertional shortness of breath, patient with history of chronic hypoxic respiratory failure due to COPD patient used 3 L supplemental oxygen at home, patient denies gaining weight or increased swelling in his bilateral legs, no chest pain. Patient in the emergency department felt better with 6 L of oxygen now is at 3 L his baseline. Patient lives home alone mostly functional with decreased daily activity due to exertional dyspnea. Patient also been complaining of orthopnea. Related Data Home Medications Medication Instructions Recorded Confirmed fluticasone furoate 200 1 puff PO DAILY 06/08/20 04/05/21 mcg-vilanterol 25 mcg/dose inhalation powder (Breo Ellipta) lisinopril 10 mg tablet 1 tab PO DAILY 06/08/20 04/05/21 pravastatin 40 mg tablet 1 tab PO DAILY 06/08/20 04/05/21 tamsulosin 0.4 mg capsule 1 cap PO DAILY 06/08/20 04/05/21 albuterol sulfate 90 mcg/actuation 2 puff inhalation Q4H PRN 03/01/21 04/05/21 aerosol inhaler Respiratory Distress Previous Rx's Medication Instructions Recorded ferrous sulfate 325 mg (65 mg 325 mg PO DAILY #30 tabs 04/09/21 iron) tablet prednisone 20 mg tablet 40 mg PO DAILY #15 tabs 04/09/21 Allergies Allergy/AdvReac Type Severity Reaction Status Date / Time No Known Allergies Allergy Verified 03/01/21 10:26 Review of Systems Review of Systems: All other systems are reviewed and are negative Constitutional: Reports as per HPI and Reports no additional constitutional complaints Eyes: Reports as per HPI and Reports no additional eye complaints Reports system reviewed and no additional complaints, except as documented Cardiovascular: Reports as per HPI and Reports no additional cardiovascular complaints Respiratory: Reports as per HPI and Reports no additional respiratory complaints Gastrointestinal: Reports as per HPI and Reports no additional gastrointestinal complaints Genitourinary: Reports no additional female genitourinary complaints Musculoskeletal: Reports no additional musculoskeletal complaints Skin/Breast: Reports system reviewed and no additional complaints, except as docu Psychiatric: Reports no additional psychiatric complaints Endocrine: Reports no additional endocrine complaints Hematologic/Lymphatic: Reports no additional hematologic/lymphatic complaints Allergic/Immunologic: Reports no additional allergic/immunologic complaints Reports system reviewed and no additional complaints, except as documented and Reports Abnormal speech present [facility] Past Medical History Medical History BPH (benign prostatic hyperplasia) COPD (chronic obstructive pulmonary disease) COPD (chronic obstructive pulmonary disease) HTN (hypertension) Hypoxemia Surgical History H/O hernia repair Family History Family History Other CAD (coronary artery disease) Social History Social History Household Members: None Housing: Apartment Do you presently have visiting nurse or other home services: No Alcohol intake: current Alcohol intake frequency: holidays/special occasions only Patient Tobacco Use Status: Former Tobacco user Smoked in Last 30 Days: No Advance Directives: No service: No Current occupational status: retired and disabled Physical Exam 2 Vital Signs: Vital Signs: Last Vital Signs Temp 97.7 F 04/29/22 07:35 Pulse 81 04/29/22 07:48 Resp 20 04/29/22 07:48 BP 114/74 04/29/22 07:48 Pulse Ox 95 04/29/22 07:48 O2 Del Method 04/29/22 07:48 O2 Flow Rate 6 04/29/22 07:35 Oxygen Flow Rate 6 04/29/22 06:23 BMI result Body Mass Index 36.8 Vital signs have been reviewed as appeared to be correct. Blood pressure normal. Heart rate normal. Respiration rate normal. Temperature normal. Oxygen saturation normal. Appearance: Alert. Oriented X3. No acute distress. Head: Normal external exam. Normocephalic. Atraumatic. No Multani signs noted. No raccoon eyes noted Eyes: PERRLA. EOMI. Conjunctiva and sclera normal. Eyelids normal. ENT: TM's Normal. Pharynx normal. Uvula midline. Moist mucous membranes. No trismus noted. No drooling noted. No muffled voice noted. Neck: Normal inspection. Neck supple. FROM. No adenopathy. Thyroid Normal. No meningeal signs. No neck mass noted. CVS: Normal heart rate and rhythm. Heart sound normal. No murmurs noted. Pulses normal throughout. Respiratory: No respiratory distress. Painless inspiration. Breath sounds normal. No wheezes/rales/rhonchi noted. Chest nontender. No accessory muscle usage noted or decreased air movement noted. Abdomen: Soft and nontender. Bowel sounds normal in all 4 quadrants. No distention noted. No organomegaly noted. No visible injury noted. Back: No CVA tenderness. Full range of motion noted. Skin: Skin warm and dry. Normal skin color. Normal skin turgor. No rashes/ lesions/lacerations noted. Extremities: No lower extremity edema. Extremities exhibit normal range of motion. Extremities nontender. Neuro: Oriented X 3. Cranial nerve exam: II-XII are grossly intact No motor deficit. No sensory deficit. Reflexes normal. Course Course Course Narrative: 72-year-old male came in for evaluation of SOB patient found to have CHF exacerbation, well administer IV Lasix and monitoring the patient as inpatient. Medications Administered Discontinued Medications Generic Name Dose Route Start Last Admin Trade Name Freq PRN Reason Stop Dose Admin Albuterol Sulfate 2.5 mg 04/29/22 07:13 04/29/22 07:42 Albuterol Sulfate (0.083%) 2.5 Mg/3 Ml Vial.Neb INHALE 04/29/22 07:14 2.5 mg ONCE ONE Administration Albuterol Sulfate 2.5 mg/ 5 mg 04/29/22 07:13 04/29/22 07:42 Albuterol Sulfate 2.5 mg INHALE 04/29/22 07:14 5 mg ONCE ONE Administration Albuterol Sulfate 2.5 mg/ 0 mg 04/29/22 06:39 04/29/22 07:41 Ipratropium [place] 0.5 mg INHALE 04/29/22 06:40 Not Given ONCE ONE Furosemide 40 mg 04/29/22 07:13 04/29/22 07:47 Furosemide 40 Mg/4 Ml Vial IVPUSH 04/29/22 07:14 40 mg ONCE ONE Administration Protocol Ipratropium [place] 0.5 mg 04/29/22 07:13 04/29/22 07:41 Ipratropium [place] 0.5 Mg/2.5 Ml Solution INHALE 04/29/22 07:14 0.5 mg ONCE ONE Administration Methylprednisolone Sodium Succinate 125 mg 04/29/22 07:13 04/29/22 07:47 Methylprednisolone Sod Succ 125 Mg/2 Ml Vial IVPUSH 04/29/22 07:14 125 mg ONCE ONE Administration Medical Decision Making Differential Diagnosis Differential Diagnoses: The differential diagnosis associated with the presentation includes (COPD exacerbation, pneumonia, CHF, viral infection.) Admission/Observation Consideration of admission/observation: Escalation of care including admission/observation considered Consult Healthcare Provider Management of the patient was discussed with: Hospitalist Lab Data [facility] Lab Attestation statement: I reviewed the patient's lab results. 04/29/22 06:48 04/29/22 06:48 Labs: Lab Results 04/29/22 04/29/22 04/29/22 Range/Units 06:48 06:48 06:48 WBC 6.1 (4.8-10.8) X10*3/uL RBC 5.23 (4.60-5.80) X10*6/uL Hgb 9.1 L (14.0-18.0) g/dl Hct 36.2 L (42.0-52.0) % MCV 69.2 L (80.0-98.0) fL MCH 17.4 L (27.0-33.0) pg MCHC 25.1 L (31.0-36.0) g/dl RDW 24.4 H (11.0-16.0) % Plt Count 272 (160-400) X10*3/uL MPV 9.9 (9.4-12.4) fL Immature Gran % (Auto) 0.3 (0.0-0.4) % Neut % (Auto) 76.9 H (45-73) % Lymph % (Auto) 10.8 L (20-40) % [place] % (Auto) 10.0 (2-11) % Eos % (Auto) 0.7 (0-4) % Baso % (Auto) 1.3 (0-2) % Lymph # (Auto) 0.7 L (1.2-4.9) X10*3/uL [place] # (Auto) 0.6 (0.1-1.2) X10*3/uL Eos # (Auto) 0.0 (0.0-0.4) X10*3/uL Baso # (Auto) 0.1 (0.0-0.2) X10*3/uL Abs Immat Gran (auto) 0.02 (0.00-0.03) X10*3/uL Absolute Neuts (auto) 4.7 (2.0-8.3) x10*3/uL Absolute Nucleated RBC 0.090 H (0.0-0.012) X10*3/uL Nucleated RBC % (auto) 1.5 H (0.0-0.2) /100WBC PT 24.9 H (10.0-13.1) SEC INR 2.1 H (0.9-1.1) Sodium 141 (135-145) mmol/L Potassium 4.5 (3.3-5.1) mmol/L Chloride 107 (96-108) mmol/L Carbon Dioxide 22 (22-29) mmol/L Anion Gap 17 (12-20) BUN 29 H (9-16) mg/dL Creatinine 1.21 (0.5-1.4) mg/dL Estim Creat Clear Calc 60.3 Estimated GFR 59 Random Glucose 95 (60-115) mg/dL Calcium 8.7 D (8.4-10.2) mg/dL Magnesium 2.0 (1.6-2.6) mg/dL Total Bilirubin 2.2 H (0.0-1.0) mg/dL AST 42 H (5-37) U/L ALT 68 H (0-40) U/L Alkaline Phosphatase 85 (39-117) U/L Troponin I High Sens (<3.5-35.0) ng/L B-Natriuretic Peptide (<100) pg/mL Total Protein 5.8 L (6.5-8.0) g/dL Albumin 3.3 L (3.5-5.0) g/dL COVID-19 ([facility]) (Negative) COVID-19 Clin Com 04/29/22 04/29/22 04/29/22 Range/Units 06:48 06:48 06:49 WBC (4.8-10.8) X10*3/uL RBC (4.60-5.80) X10*6/uL Hgb (14.0-18.0) g/dl Hct (42.0-52.0) % MCV (80.0-98.0) fL MCH (27.0-33.0) pg MCHC (31.0-36.0) g/dl RDW (11.0-16.0) % Plt Count (160-400) X10*3/uL MPV (9.4-12.4) fL Immature Gran % (Auto) (0.0-0.4) % Neut % (Auto) (45-73) % Lymph % (Auto) (20-40) % [place] % (Auto) (2-11) % Eos % (Auto) (0-4) % Baso % (Auto) (0-2) % Lymph # (Auto) (1.2-4.9) X10*3/uL [place] # (Auto) (0.1-1.2) X10*3/uL Eos # (Auto) (0.0-0.4) X10*3/uL Baso # (Auto) (0.0-0.2) X10*3/uL Abs Immat Gran (auto) (0.00-0.03) X10*3/uL Absolute Neuts (auto) (2.0-8.3) x10*3/uL Absolute Nucleated RBC (0.0-0.012) X10*3/uL Nucleated RBC % (auto) (0.0-0.2) /100WBC PT (10.0-13.1) SEC INR (0.9-1.1) Sodium (135-145) mmol/L Potassium (3.3-5.1) mmol/L Chloride (96-108) mmol/L Carbon Dioxide (22-29) mmol/L Anion Gap (12-20) BUN (9-16) mg/dL Creatinine (0.5-1.4) mg/dL Estim Creat Clear Calc Estimated GFR Random Glucose (60-115) mg/dL Calcium (8.4-10.2) mg/dL Magnesium (1.6-2.6) mg/dL Total Bilirubin (0.0-1.0) mg/dL AST (5-37) U/L ALT (0-40) U/L Alkaline Phosphatase (39-117) U/L Troponin I High Sens 18.1 (<3.5-35.0) ng/L B-Natriuretic Peptide 1846 H (<100) pg/mL Total Protein (6.5-8.0) g/dL Albumin (3.5-5.0) g/dL COVID-19 ([facility]) Negative (Negative) COVID-19 Clin Com See Note Independent Interpretation I performed an independent interpretation of an: EKG (Normal sinus rhythm at 89 beats per minutes, right bundle branch block, first-degree AV block, nonspecific T-wave flattening and inversion in the lateral leads.) and Plain X-Ray (Cardiome karyn with mild CHF.) Radiology Impression Discussion of test interpretation with radiology: I have reviewed the radiologist's reading. Discharge Plan Discharge Clinical Impression: COPD with exacerbation, Congestive heart failure Patient Disposition: Admitted As Inpatient
[2022-04-29 07:17] LABS: Alanine Aminotransferase 68 U/L (0-40); Albumin Level 3.3 g/dL (3.5-5.0); Alkaline Phosphatase 85 U/L (39-117); Anion Gap 17 (12-20); Aspartate Amino Transferase 42 U/L (5-37); Bilirubin Total 2.2 mg/dL (0.0-1.0); Blood Urea Nitrogen 29 mg/dL (9-16); Calcium 8.7 mg/dL (8.4-10.2); Carbon Dioxide 22 mmol/L (22-29); Chloride 107 mmol/L (96-108); Creatinine Clr Calc Pharmacy 60.3; Estimated Glomerular Filt Rate 59; Glucose Random 95 mg/dL (60-115); Potassium 4.5 mmol/L (3.3-5.1); Sodium 141 mmol/L (135-145); Total Protein 5.8 g/dL (6.5-8.0)
[2022-04-29 07:21] LABS: B Type Natriuretic Peptide 1846 pg/mL (<100)
[2022-04-29 07:23] LABS: COVID-19 Test Negative (Negative); IDNOW Serial# 16C4AD1C
[2022-04-29 07:24] LABS: Troponin-I High Sensitivity 18.1 ng/L (<3.5-35.0)
[2022-04-29] MEDS: Ipratropium Bromide 0.5 MG/2.5 ML SOLUTION INHALE (07:41)
[2022-04-29] MEDS: Albuterol Sulfate (0.083%) 2.5 MG/3 ML VIAL.NEB INHALE (07:42)
[2022-04-29] MEDS: Albuterol Sulfate 2.5 MG, Albuterol Sulfate (0.083%) 2.5 MG 5 MG INHALE (07:42)
[2022-04-29] MEDS: Furosemide 40 MG/4 ML VIAL IVPUSH ×2 (07:47→17:31)
[2022-04-29] MEDS: methylPREDNISolone Sod Succ 125 MG/2 ML VIAL IVPUSH (07:47)
--- NOTE | 2022-04-29 07:49 | PC.NURSE ---
Pt is alert/oriented. Mild diff breathing upon rest. Skin pale, dusky with activity. Recieving nebulized updraft at this time. LS clear to upper lobes, dim to bases. BL swelling noted to LE, worse on right leg +2. NSR on monitor. Medicated as charted.
--- NOTE | 2022-04-29 10:34 | PC.NURSE ---
patient a&ox3, speaking in full sentences, hall monitor nsr 90s, pt was on 7L NC, pt O2 sat was in low 80s, moved patient over to oxymask at 5L NC and has been 89-91%.
--- NOTE | 2022-04-29 10:49 | PHA.MEDREC ---
Pharmacy Consult ? Medication Reconciliation Pharmacy has completed the medication reconciliation.
--- NOTE | 2022-04-29 11:09 | PM.IMHP ---
History of Present Illness Date of Service: 04/29/22 Attending physician on admission: Huseyin Walker Chief Complaint: SOB Pt is a 72-year-old male with a PMH significant for COPD, CHF, BPH, and HLD who presents to the ED with?worsening shortness of breath. Patient states that he has had increasing SOB for the past couple months, especially worse in the past two weeks when he can no longer walk across the room without stopping to catch his breath. Patient presents today after waking up this morning and feeling dizzy and being unable to walk. Patient is on 3 L of O2 at home but states he feels he should be on a higher requirement but his current machine maxes out at 3L. Pt also notes he has recently experienced 3-4 days of sore throat, cough, diarrhea, and abdominal pain. Denies F/C, N/V. Feels much better today with no symptoms. Pt denies orthopnea, PND, chest pain/pressure. In the ED pt was found to be hypoxic, desatting into the low 80s on RA. Labs were significant for no leukocytosis, H and H of 9.1/36.2 (at baseline), hyperbilirubinemia of 2.2, and elevated BNP of 1846. CXR showed mild cardiomegaly with mild CHF. EKG showed normal sinus rhythm with nonspecific T-wave inversions. Pt was treated with furosemide and Solu-Medrol. Pt will be admitted to the hospital for treatment and evaluation of CHF and COPD exacerbations. Review of Systems Review of Systems: Worsening SOB Dizziness Diarrhea, sore throat, cough No orthopnea, PND Denies chest pain Yes all other systems are reviewed and are negative [facility] Medical History BPH (benign prostatic hyperplasia) COPD (chronic obstructive pulmonary disease) COPD (chronic obstructive pulmonary disease) HTN (hypertension) Hypoxemia Family History Other CAD (coronary artery disease) Surgical History H/O hernia repair Social History Household Members: None Housing: Apartment Do you presently have visiting nurse or other home services: No Alcohol intake: current Alcohol intake frequency: holidays/special occasions only Patient Tobacco Use Status: Former Tobacco user Smoked in Last 30 Days: No Advance Directives: No service: No Current occupational status: retired and disabled Meds Allergies Allergy/AdvReac Type Severity Reaction Status Date / Time No Known Allergies Allergy Verified 03/01/21 10:26 Home Medications Medication Instructions Recorded Confirmed Last Taken Type lisinopril 10 mg tablet 1 tab PO DAILY 06/08/20 04/29/22 04/28/22 09:00 History pravastatin 40 mg tablet 1 tab PO DAILY 06/08/20 04/29/22 04/28/22 09:00 History tamsulosin 0.4 mg capsule 1 cap PO DAILY 06/08/20 04/29/22 04/28/22 09:00 History aspirin 81 mg chewable tablet 1 tab PO DAILY 04/29/22 04/29/22 04/28/22 09:00 History fluticasone fur. 200 mcg-umeclid 1 puff inhalation DAILY 04/29/22 04/29/22 04/28/22 09:00 History 62.5 mcg-vilant 25 mcg inhalat.powder (Trelegy Ellipta) Physical Exam Vital Signs and Narrative: Vital Signs: Last Vital Signs Temp 97.6 F 04/29/22 10:00 Pulse 92 04/29/22 10:00 Resp 20 04/29/22 10:00 BP 102/67 04/29/22 10:00 Pulse Ox 89 L 04/29/22 10:00 O2 Del Method 04/29/22 10:00 O2 Flow Rate 5 04/29/22 10:00 Oxygen Flow Rate 6 04/29/22 06:23 BMI result Body Mass Index 36.8 Constitutional: Alert, in no acute distress. Mental Status: Oriented to person, place and time. Eyes: Pupils are equal, round, and reactive to light. Ear, Nose, and Throat: Oropharynx clear, mucous membranes moist. Ears and nose without deformities. Trachea midline. Respiratory: Diffuse expiratory wheezing, worse on the left. Cardiovascular: S1, S2 regular. No murmurs, rubs, or gallops. Gastrointestinal: Abdomen soft, non-tender, non-distended. Normal bowel sounds. Neurologic: Cranial nerves II-XI are grossly intact. No focal neurological deficits. Moves all extremities spontaneously. Skin: No rashes or lesions noted. Musculoskeletal: No cyanosis or clubbing. Extremities: 1-2+ pitting edema bilaterally. Psychiatric: Normal mood and affect. Results Labs 04/29/22 06:48 04/29/22 06:48 Labs: Laboratory Results - last 24 hr 04/29/22 04/29/22 04/29/22 06:48 06:48 06:48 MCV 69.2 L MCH 17.4 L MCHC 25.1 L RDW 24.4 H Plt Count 272 MPV 9.9 Immature Gran % (Auto) 0.3 Neut % (Auto) 76.9 H Lymph % (Auto) 10.8 L [place] % (Auto) 10.0 Eos % (Auto) 0.7 Baso % (Auto) 1.3 Lymph # (Auto) 0.7 L [place] # (Auto) 0.6 Eos # (Auto) 0.0 Baso # (Auto) 0.1 Abs Immat Gran (auto) 0.02 Absolute Neuts (auto) 4.7 Absolute Nucleated RBC 0.090 H Nucleated RBC % (auto) 1.5 H PT 24.9 H INR 2.1 H Anion Gap 17 Estim Creat Clear Calc 60.3 Estimated GFR 59 Random Glucose 95 Calcium 8.7 D Magnesium 2.0 Total Bilirubin 2.2 H AST 42 H ALT 68 H Alkaline Phosphatase 85 Troponin I High Sens B-Natriuretic Peptide Total Protein 5.8 L Albumin 3.3 L COVID-19 ([facility]) COVID-19 Clin Com 04/29/22 04/29/22 04/29/22 06:48 06:48 06:49 MCV MCH MCHC RDW Plt Count MPV Immature Gran % (Auto) Neut % (Auto) Lymph % (Auto) [place] % (Auto) Eos % (Auto) Baso % (Auto) Lymph # (Auto) [place] # (Auto) Eos # (Auto) Baso # (Auto) Abs Immat Gran (auto) Absolute Neuts (auto) Absolute Nucleated RBC Nucleated RBC % (auto) PT INR Anion Gap Estim Creat Clear Calc Estimated GFR Random Glucose Calcium Magnesium Total Bilirubin AST ALT Alkaline Phosphatase Troponin I High Sens 18.1 B-Natriuretic Peptide 1846 H Total Protein Albumin COVID-19 ([facility]IS) Negative COVID-19 Clin Com See Note Imaging Radiologist's Impressions: Impressions Chest X-Ray 04/29/22 07:29 IMPRESSION: Mild cardiomegaly with mild CHF. Assessment and Plan (1) Congestive heart failure: Status: Acute (2) COPD with exacerbation: Status: Acute Plan Pt is a 72-year-old male with a PMH significant for COPD, CHF, BPH, and HLD who presents to the ED with?worsening shortness of breath. Pt will be admitted to the hospital for treatment and evaluation of CHF and COPD exacerbations. Acute CHF exacerbation Increasing SOB, bilateral pitting edema, elevated BNP, pulmonary edema Furosemide 40 mg IV b.i.d. Follow lytes, MG, I/O Echocardiogram Cardiology consult Chronic hypoxic respiratory failure with acute decompensation COPD exacerbation Solu-Medrol Bronchodilators Titrate supplemental O2 for O2 sat>88 Continue Oxymask, wean as tolerated Suspected recent viral illness Likely resolved, pt afebrile, no leukocytosis, feeling much better Iron-deficiency anemia Seems stable at baseline Iron studies BPH Continue tamsulosin DNR/DNI Attending:?Dr Walker. DVT Prophylaxis: Lovenox Pt will require a hospitalization of at least two nights for treatment of?COPD and CHF exacerbations. Time Spent With Patient Time: Total time managing care of this patient today ____ minutes. Quality Stroke Does the patient have a stroke diagnosis?: No VTE Prior VTE?: No VTE Risk Level:: Medical - moderate - high VTE Device Contraindication: Treatment Not Indicated VTE Drug Contraindication: N/A - Med Ordered
[2022-04-29 12:19] LABS: Venous Blood Gas Refer to POC result
[2022-04-29 12:23] LABS: VBG Base Excess 0.7 mmol/L; VBG HCO3 24 mmol/L (22-26); VBG pCO2 37 mmHg; VBG pH 7.42 (7.32-7.43); VBG pO2 47 mmHg
[2022-04-29 12:35] LABS: Iron 19 mcg/dL (45-160); Percent Iron Saturation 6 % (15-50); Total Iron Binding Capacity 342 mcg/dL (228-428); Unsaturated Iron Binding 323 ug/dL
[2022-04-29] MEDS: methylPREDNISolone Sod Succ 125 MG/2 ML VIAL 60 MG IVPUSH ×2 (14:25→22:06)
[2022-04-29] MEDS: Enoxaparin Sodium 40 MG/0.4 ML SYRINGE SUBCUT (14:25)
--- NOTE | 2022-04-29 14:28 | PC.NURSE ---
patient a&ox3, site monitor intact, pt continues to be on oxymask-speaking in full sentences, pt medicated per order, call smith within reach, will continue to monitor
--- NOTE | 2022-04-29 16:49 | MHC.EDTECH ---
this pct assumed care of patient at 1600 ,patient resting ,but listening to television ,vitals sign taken ,call smith within reach .
[2022-04-29] MEDS: 0.9 % Sodium Chloride Flush 3 ML SYRINGE IVFLUSH (17:05)
--- NOTE | 2022-04-29 17:24 | MHC.EDTECH ---
PATIENT WAS INCONTINENT OF URINE ,CARE GIVEN BEDDING CHANGE ,[place] CATHETHER IN PLACE RN SAID IT WAS OK TO PUT [place] CATHETHER ON ,WARM BLANKET GIVEN ,CALL RAMIREZ WITHIN REACH .
--- NOTE | 2022-04-29 17:33 | PC.NURSE ---
condom cath placed, laboratory monitor intact, pt vss, pt continues to use oxymask at 7L, denies pain, pt medicated per order, will continue to monitor.
--- NOTE | 2022-04-29 20:00 | MHC.EDTECH ---
1999 rounding done patient was served dinner earlier patient ate 75 % of dinner drank 360 ml fluids ,1999 vitals sign taken patient was reposition and warm blanket given ,patient awake watching television ,call smith within reach .
--- NOTE | 2022-04-29 21:25 | PC.NURSE ---
Re-assessment: Pt's BP is slightly lower, pt is on the continuos director of cardiac cath lab and it shows sinus tachy,pt is on the oxy mask 7L due to oxygen depletion. Pt is a/o x4, pt has pitting edema +3 bilaterally on his ankles. pt is sleeping.
--- NOTE | 2022-04-29 22:00 | MHC.EDTECH ---
2200 rounding done ,vitals sign taken patient reposition ,condom cathether empty output 725 ml ,call smith within reach .
[2022-04-29] MEDS: Pravastatin Sodium 40 MG TABLET PO (22:05)
[2022-04-30] VITALS (11 sets, daily range): BP systolic 85–117; BP diastolic 57–75; PULSE 85–107; RESP 11–25; TEMP 36–36.6; O2SAT 88–93
[2022-04-30] MEDS: 0.9 % Sodium Chloride Flush 3 ML SYRINGE IVFLUSH ×4 (01:43→19:39)
[2022-04-30] MEDS: methylPREDNISolone Sod Succ 125 MG/2 ML VIAL 60 MG IVPUSH ×3 (05:42→22:09)
--- NOTE | 2022-04-30 05:50 | PC.NURSE ---
Pt's V/ S are stable, pt is on the monitor, NSR. Pt's output 1,200. Pt meds were administered as order.
[2022-04-30 06:45] LABS: Anion Gap 11 (12-20); Blood Urea Nitrogen 31 mg/dL (9-16); Calcium 8.9 mg/dL (8.4-10.2); Carbon Dioxide 29 mmol/L (22-29); Chloride 107 mmol/L (96-108); Creatinine Clr Calc Pharmacy 60.3; Estimated Glomerular Filt Rate 59; Glucose Random 144 mg/dL (60-115); Potassium 4.4 mmol/L (3.3-5.1); Sodium 143 mmol/L (135-145)
--- NOTE | 2022-04-30 07:00 | CA_ITS ---
Transthoracic Echocardiogram Patient (Last, First, Middle): Jose Solis A Gender: Male Date of : 1950 Age: 72 Procedure Date: 04/30/2022 Procedure Type: Transthoracic Echocardiogram Location: ER Height: 167.64 cm Weight: 103.42 kg BSA: 2.11 m2 Heart Rate: 98 bpm BP: 117 / 75 mmHg Sports Media: MARTY Referring MD: Aimee WILLARD Paper Twister: Jose Boateng MD Symptoms: CHF Study Quality: Poor/Contrast ECG Rhythm: Sinus Conclusions: - 1. Normal LV systolic function with mild LVH 2. Severely dilated right ventricle 3. Normal cardiac valvular Doppler next 4. Moderately elevated right ventricular systolic pressure with significantly elevated right atrial pressures 5. Trivial pericardial effusion Findings Procedure Information Contrast agent, definity, is being given per protocol without apparent complications. Left Ventricle Normal left ventricular size and systolic function. There is mildly increased left ventricular wall thickness. The visually estimated ejection fraction is between 65-70%. Diastolic function is indeterminate on the basis of available data. Right Ventricle Severely increased right ventricular cavity size. Atria The left atrium is likely dilated. Interatrial shunt cannot be excluded. The right atrium is moderately dilated. Aortic Valve The aortic valve was not well visualized. There is no aortic valve stenosis. There is no aortic valve regurgitation. Mitral Valve There is mild anterior and posterior mitral leaflet thickening. There is trace mitral valve regurgitation. There is no mitral valve stenosis. Pulmonic Valve The pulmonic valve was not well visualized. Tricuspid Valve Likely normal tricuspid valve structure and function. There is mild tricuspid valve regurgitation. Significantly elevated right atrial pressure. Moderate pulmonary hypertension is present. Great Vessels All visible segments of the aorta are normal in size. The pulmonary artery was not well visualized. Venous The inferior vena cava is moderately dilated and does not collapse with inspiration. Pericardium/Pleural There is a trivial loculated pericardial effusion overlying the left ventricle. Prior Study Comparison Changes noted compared to prior study dated: 06/10/2020. RV systolic pressure is further increase along with significantly increased right atrial pressures Measurements 2D Linear Measurements IVSd: 1.31 0.6-0.9/0.6-1.0 cm LVIDd: 4.23 3.9-5.3/4.2-5.9 cm LVIDd Index: 2.00 2.4-3.2/2.2-3.1 cm/m2 LVIDs: 3.20 2.0-3.6 cm LVPWd: 1.33 0.7-1.1 cm LA Diam: 3.60 2.7-3.8/3.0-4.0 cm LAIDs Index: 1.71 1.5-2.3 cm/m2 LV Mass: 258.50 67-162/88-224 g LV Mass Index: 122.51 43-95/49-115 g/m2 LVOT Diam: 2.10 3.0+(-)1.3 cm 2D Systolic Function EF 4C: 69.20 >55% EF 2C: 71.30 >55% EF BiP: 70.50 >55% Mitral Valve MV Pk E: 0.96 MV Decel Time: 171.00 E'Lateral: 12.60 E'Medial: 9.46 E/E' Med: 10.20 E/E' Lat: 7.70 PHT: 50.00 MVA PHT: 4.40 Decel [place]: 5.64 Aortic Valve AoV Pk Juan M: 1.30 AoV Mn Juan M: 0.87 AoV VTI: 0.22 AoV Pk Grad: 7.00 Aov Mn Grad: 4.00 HAYLEY Cont.VTI: 2.92 LVOT LVOT Pk Juan M: 0.90 LVOT Mn Juan M: 0.62 LVOT VTI: 0.18 LVOT Pk Grad: 3.00 LVOT Mn Grad: 2.00 LVOT Diam: 2.10 LVOT Area: 3.46 Diastolic Function MV Pk E: 0.96 E'Medial: 9.46 E/E' Med: 10.20 E' Laterial: 12.60 E/E' Lat: 7.70 Right Ventricle TAPSE (mm): 15.80 TVS' Juan M: 10.80 Tricuspid Valve TR Pk Juan M: 2.91 TR Pk Grad: 34.00 RA Press: 15.00 RVSP: 49.00 Great Vessels Aorta Sinus of Valsalva: 3.74 2.0-3.[address] [place]: 2.81 1.7-3.4 cm Ao Asc: 3.10 2.1-3.4 cm Updated in Other Vendor System with Status of Final Jose Boateng MD electronically signed on 04/30/2022 1:26:02 PM with status of Final
[2022-04-30 08:07] LABS: Venous Blood Gas Refer to POC result
[2022-04-30 08:08] LABS: VBG Base Excess 4.3 mmol/L; VBG HCO3 28 mmol/L (22-26); VBG pCO2 40 mmHg; VBG pH 7.45 (7.32-7.43); VBG pO2 72 mmHg
[2022-04-30] MEDS: lisinopriL 10 MG TABLET PO (08:11)
[2022-04-30] MEDS: Furosemide 40 MG/4 ML VIAL IVPUSH ×2 (08:11→16:40)
[2022-04-30] MEDS: Aspirin 81 MG TAB.CHEW PO (08:11)
--- NOTE | 2022-04-30 08:18 | HO.PM.IMPN ---
Subjective Subjective Date of Service: 04/30/22 Interval History: follow up copd/chf Review of Systems patient says sob somewhat improving Denies any chest pain or nausea or vomiting or abdominal pain or fever or chills. Physical Exam Vital Signs: Vital Signs: Last Vital Signs Temp 97.9 F 04/30/22 05:02 Pulse 85 04/30/22 07:15 Resp 15 04/30/22 07:15 BP 117/75 04/30/22 07:15 Pulse Ox 92 04/30/22 07:15 O2 Del Method 04/30/22 07:15 O2 Flow Rate 7 04/30/22 07:15 Oxygen Flow Rate 6 04/29/22 06:23 BMI result Body Mass Index 36.8 Appearance: Alert.? Oriented X3.? not in distress.? cvs: rrr, [id number] ,jvd equivocal. res: air enrty seems fair, few wheezes , some rales at bases abd: no rebound or guarding ,nt, bs present. ext pulses present , no cyanosis,edema1+ neuro: axo3 , nonfocal. Objective Data Active Medications Acetaminophen (Acetaminophen 325 Mg Tablet) 650 mg PO Q6H PRN PRN Reason: Pain, Mild (Pain Scale 1-3) Aspirin (Aspirin 81 Mg Tab.Chew) 81 mg PO DAILY [facility] Last Admin: 04/30/22 08:11 Dose: 81 mg Documented By: GHAZAL Albuterol Sulfate 2.5 mg/ (Ipratropium [place] 0.5 mg) 0 mg INHALE RQ4H WHILE AWAKE [facility] Last Admin: 04/29/22 20:17 Dose: 2.5 each Documented By: HEIKE Albuterol Sulfate 2.5 mg/ (Ipratropium [place] 0.5 mg) 0 mg INHALE Q3H PRN PRN Reason: sob Docusate Sodium (Docusate Sodium 100 Mg Capsule) 100 mg PO DAILY PRN PRN Reason: Constipation Enoxaparin Sodium (Enoxaparin Sodium 40 Mg/0.4 Ml Syringe) 40 mg SUBCUT Q24H [facility] Last Admin: 04/29/22 14:25 Dose: 40 mg Documented By: CAROLYNN Furosemide (Furosemide 40 Mg/4 Ml Vial) 40 mg IVPUSH BID@0900,1800 [facility]; Protocol Last Admin: 04/30/22 08:11 Dose: 40 mg Documented By: GHAZAL Lisinopril (Lisinopril 10 Mg Tablet) 10 mg PO DAILY [facility]; Protocol Last Admin: 04/30/22 08:11 Dose: 10 mg Documented By: GHAZAL Methylprednisolone Sodium Succinate (Methylprednisolone Sod Succ 125 Mg/2 Ml Vial) 60 mg IVPUSH Q8H [facility] Last Admin: 04/30/22 05:42 Dose: 60 mg Documented By: JAMARCUS Ondansetron HCl (Ondansetron Hcl 4 Mg/2 Ml Vial) 4 mg IVPUSH Q8H PRN PRN Reason: Nausea and Vomiting Pravastatin Sodium (Pravastatin Sodium 40 Mg Tablet) 40 mg PO BEDTIME [facility] Last Admin: 04/29/22 22:05 Dose: 40 mg Documented By: JAMARCUS Sodium Chloride (0.9 % Sodium Chloride Flush 3 Ml Syringe) 3 ml IVFLUSH QSHIFT [facility] Last Admin: 04/30/22 08:11 Dose: 3 ml Documented By: GHAZAL Tamsulosin HCl (Tamsulosin Hcl 0.4 Mg Capsule) 0.4 mg PO DAILY@1630 [facility] Labs 04/29/22 06:48 04/30/22 06:15 Labs: Laboratory Results - last 24 hr 04/29/22 04/29/22 04/30/22 06:48 12:14 06:15 VBG pH 7.42 VBG pCO2 37 VBG pO2 47 VBG HCO3 24 VBG O2 Saturation 69.0 VBG Base Excess 0.7 Anion Gap 11 L Estim Creat Clear Calc 60.3 Estimated GFR 59 Random Glucose 144 H Calcium 8.9 Magnesium 2.0 Iron 19 L TIBC 342 % Saturation 6 L Unsat Iron Binding 323 04/30/22 08:02 VBG pH 7.45 H VBG pCO2 40 VBG pO2 72 VBG HCO3 28 H VBG O2 Saturation 96.0 VBG Base Excess 4.3 Anion Gap Estim Creat Clear Calc Estimated GFR Random Glucose Calcium Magnesium Iron TIBC % Saturation Unsat Iron Binding Assessment and Plan (1) Congestive heart failure: Status: Acute (2) Hypoxemia: Status: Acute (3) COPD with exacerbation: Status: Acute (4) Morbid obesity: Status: Acute Plan 72-year-old male with a PMH significant for COPD, CHF, BPH, and HLD who presents to the ED with?worsening shortness of breath. Pt will be admitted to the hospital for treatment and evaluation of CHF and COPD exacerbations. Acute CHF exacerbation Increasing SOB, bilateral pitting edema, elevated BNP, pulmonary edema Furosemide 40 mg IV b.i.d. Follow lytes, MG, I/O neg 1.2 liters Echocardiogram Cardiology consult Chronic hypoxic respiratory failure with acute decompensation COPD exacerbation Solu-Medrol Bronchodilators Titrate supplemental O2 for O2 sat>88 Continue Oxymask, wean as tolerated Suspected recent viral illness Likely resolved, pt afebrile, no leukocytosis, feeling much better Iron-deficiency anemia Seems stable at baseline Iron studies BPH Continue tamsulosin modbid obesity: Encouraged to lose weight. DNR/DNI DVT Prophylaxis: Lovenox ongoing hospitlisation need: treatment of?COPD and CHF exacerbations-iv steriods ,nebs ,iv diuresis -moniter i/o, renal function/electrolytes ,cardiac workup pending Time Spent With Patient Time: Total time managing care of this patient today ____ minutes. Quality Stroke Does the patient have a stroke diagnosis?: No VTE Prior VTE?: No VTE Risk Level:: Medical - moderate - high VTE Device Contraindication: Treatment Not Indicated VTE Drug Contraindication: N/A - Med Ordered
--- NOTE | 2022-04-30 12:57 | P.CONCA_ITS ---
History of Present Illness History of Present Illness Date of Service: 04/30/22 Requesting physician: Moraima Bartlett Consult reason: congestive heart failure Chief complaint: SOB Narrative: I was consulted to see Jose in cardiology consultation today for acute respiratory failure with findings consistent with heart failure based on chest x-ray and lab work. Patient 72-year-old male with prior history he says of myocardial infarction many many years ago does not see a green feed attendant, COPD on home oxygen. Usually does not see a physician on a regular basis as per him. However he takes his medications. He said he came to the hospital with progressively increasing shortness of breath walking very short distances. Also notice abdominal distension. He denies any clear orthopnea, PND. Denies any clear wheezing or cough productive of phlegm or fever. On admission noted to have BNP of 1846 and chest x-ray finding consistent with congestive heart failure. He has diuresed since has been going to bathroom a lot and also got bronchodilators and says feels a lot better. Review of Systems Constitutional: Constitutional: Reports no additional constitutional complaints Cardiovascular: Cardiovascular: Reports Abdominal Distension, Denies chest pain, Denies lightheadedness, Denies Loss of Consciousness and Reports dyspnea on exertion Respiratory: Respiratory: Reports no additional respiratory complaints and Reports dyspnea on exertion Gastrointestinal: Gastrointestinal: Reports no additional gastrointestinal complaints Neurologic: Reports system reviewed and no additional complaints, except as documented Psychiatric: Psychiatric: Reports no additional psychiatric complaints Endocrine: Endocrine: Reports no additional endocrine complaints Hematologic/Lymphatic: Hematologic/Lymphatic: Reports no additional hematologic/lymphatic complaints Allergic/Immunologic: Allergic/Immunologic: Reports no additional all ergic/immunologic complaints PMFSH Past Medical History Medical History BPH (benign prostatic hyperplasia) COPD (chronic obstructive pulmonary disease) COPD (chronic obstructive pulmonary disease) HTN (hypertension) Hypoxemia Family History Family History Other CAD (coronary artery disease) Surgical History Surgical History H/O hernia repair Social History Social History Household Members: None Housing: Other Housing Other:: mobile home Do you presently have visiting nurse or other home services: Yes (cleaning lady, meals ([place] senior citizen)) Alcohol intake: current Alcohol intake frequency: holidays/special occasions only Patient Tobacco Use Status: Former Tobacco user Quit Date: 15 years ago service: No Current occupational status: retired and disabled Meds Allergies Allergy/AdvReac Type Severity Reaction Status Date / Time No Known Allergies Allergy Verified 03/01/21 10:26 Active Medications: Current Medications Acetaminophen (Acetaminophen 325 Mg Tablet) 650 mg PO Q6H PRN PRN Reason: Pain, Mild (Pain Scale 1-3) Aspirin (Aspirin 81 Mg Tab.Chew) 81 mg PO DAILY [facility] Last Admin: 04/30/22 08:11 Dose: 81 mg Albuterol Sulfate 2.5 mg/ (Ipratropium [place] 0.5 mg) 0 mg INHALE RQ4H WHILE AWAKE [facility] Last Admin: 04/30/22 11:25 Dose: 2.5 each Albuterol Sulfate 2.5 mg/ (Ipratropium [place] 0.5 mg) 0 mg INHALE Q3H PRN PRN Reason: sob Docusate Sodium (Docusate Sodium 100 Mg Capsule) 100 mg PO DAILY PRN PRN Reason: Constipation Enoxaparin Sodium (Enoxaparin Sodium 40 Mg/0.4 Ml Syringe) 40 mg SUBCUT Q24H [facility] Last Admin: 04/29/22 14:25 Dose: 40 mg Furosemide (Furosemide 40 Mg/4 Ml Vial) 40 mg IVPUSH BID@0900,1800 [facility]; Protocol Last Admin: 04/30/22 08:11 Dose: 40 mg Lisinopril (Lisinopril 10 Mg Tablet) 10 mg PO DAILY [facility]; Protocol Last Admin: 04/30/22 08:11 Dose: 10 mg Methylprednisolone Sodium Succinate (Methylprednisolone Sod Succ 125 Mg/2 Ml Vial) 60 mg IVPUSH Q8H [facility] Last Admin: 04/30/22 05:42 Dose: 60 mg Ondansetron HCl (Ondansetron Hcl 4 Mg/2 Ml Vial) 4 mg IVPUSH Q8H PRN PRN Reason: Nausea and Vomiting Pravastatin Sodium (Pravastatin Sodium 40 Mg Tablet) 40 mg PO BEDTIME [facility] Last Admin: 04/29/22 22:05 Dose: 40 mg Sodium Chloride (0.9 % Sodium Chloride Flush 3 Ml Syringe) 3 ml IVFLUSH QSHIFT [facility] Last Admin: 04/30/22 08:11 Dose: 3 ml Tamsulosin HCl (Tamsulosin Hcl 0.4 Mg Capsule) 0.4 mg PO DAILY@1630 [facility] Home Medications Medication Instructions Recorded Confirmed Last Taken Type lisinopril 10 mg tablet 1 tab PO DAILY 06/08/20 04/29/22 04/28/22 09:00 History pravastatin 40 mg tablet 1 tab PO DAILY 06/08/20 04/29/22 04/28/22 09:00 History tamsulosin 0.4 mg capsule 1 cap PO DAILY 06/08/20 04/29/22 04/28/22 09:00 History aspirin 81 mg chewable tablet 1 tab PO DAILY 04/29/22 04/29/22 04/28/22 09:00 History fluticasone fur. 200 mcg-umeclid 1 puff inhalation DAILY 04/29/22 04/29/22 04/28/22 09:00 History 62.5 mcg-vilant 25 mcg inhalat.powder (Trelegy Ellipta) Physical Exam Vital Signs: Vital Signs: Last Vital Signs Temp 97.9 F 04/30/22 10:47 Pulse 100 04/30/22 11:28 Resp 18 04/30/22 11:28 BP 116/58 L 04/30/22 10:47 Pulse Ox 90 L 04/30/22 10:47 O2 Del Method 04/30/22 10:47 O2 Flow Rate 6 04/30/22 09:02 Oxygen Flow Rate 6 04/29/22 06:23 BMI result Body Mass Index 36.8 Const: General: cooperative, comfortable, alert, awake and in distress mild and respiratory Nutritional Appearance: obese Orientation/consciousness: patient oriented x3 HEENT: Head: Yes normocephalic and Yes atraumatic Neck: Neck: Yes trachea midline, Yes supple and Yes JVD Resp: Effort & Inspection: normal respiratory effort Auscultation: wheezes expiratory wheezes and lower bilaterally and diminished lung sounds Cardio: Jugular venous distension: no JVD Palpation: normal PMI Rate: regular rate Rhythm: regular rhythm Heart sounds: S1 normal heart sound present, S2 normal heart sound present, no click, no gallops, no murmurs and no rubs GI: Auscultation: normal bowel sounds Skin: General skin exam: no rashes or lesions noted Neuro: General: patient oriented x3 and no focal motor deficits Extrem: General: Yes no clubbing, cyanosis or edema Objective Labs and Meds 04/29/22 06:48 04/30/22 06:15 Lab results: Laboratory Results - last 24 hr 04/30/22 04/30/22 06:15 08:02 VBG pH 7.45 H VBG pCO2 40 VBG pO2 72 VBG HCO3 28 H VBG O2 Saturation 96.0 VBG Base Excess 4.3 Sodium 143 Potassium 4.4 Chloride 107 Carbon Dioxide 29 Anion Gap 11 L BUN 31 H Creatinine 1.21 Estim Creat Clear Calc 60.3 Estimated GFR 59 Random Glucose 144 H Calcium 8.9 Magnesium 2.0 Assessment and Plan (1) CHF exacerbation: Status: Acute Patient present with worsening shortness of breath and acute respiratory failure with hypoxemia related to COPD exacerbation as well as heart failure exacerbation. Echocardiogram will be reviewed. Continue IV diuresis with Lasix. Strict intake and output chart needs to be pursued. Continue to monitor renal function electrolytes as well as BNP. Continue treat his COPD has significant wheezing and bronchospastic component on today's exam. Further treatment based on finding of the echocardiogram. He has prior history of CAD and may require further workup at some point in time. Add Aldactone 12.5 mg to his regimen. Management was discussed with him in details. CHF education to be provided. Will follow up with him tomorrow Time Spent With Patient Time: Total time managing care of this patient today ____ minutes. Procedures Date of Service Date of Service: 04/30/22
[2022-04-30] MEDS: Enoxaparin Sodium 40 MG/0.4 ML SYRINGE SUBCUT (14:30)
[2022-04-30] MEDS: Tamsulosin HCL 0.4 MG CAPSULE PO (16:40)
[2022-04-30] MEDS: Pravastatin Sodium 40 MG TABLET PO (22:08)
[2022-04-30] MEDS: Melatonin 3 MG TABLET 6 MG PO (23:50)
[2022-05-01] VITALS (10 sets, daily range): BP systolic 84–112; BP diastolic 47–72; PULSE 89–106; RESP 14–24; TEMP 36–36.5; O2SAT 87–92; BMI 34.6
[2022-05-01] MEDS: methylPREDNISolone Sod Succ 125 MG/2 ML VIAL 60 MG IVPUSH (05:33)
[2022-05-01 06:32] LABS: Mean Corpuscular Hemoglobin 17.1 pg (27.0-33.0); Mean Corpuscular Volume 68.6 fL (80.0-98.0); NRBC Pct Auto 0.8 /100WBC (0.0-0.2); Red Blood Count 5.25 X10*6/uL (4.60-5.80); Red Cell Distribution Width 23.9 % (11.0-16.0); White Blood Count 17.3 X10*3/uL (4.8-10.8)
[2022-05-01 06:44] LABS: Anion Gap 14 (12-20); Blood Urea Nitrogen 34 mg/dL (9-16); Calcium 8.7 mg/dL (8.4-10.2); Carbon Dioxide 26 mmol/L (22-29); Chloride 104 mmol/L (96-108); Creatinine Clr Calc Pharmacy 70.7; Estimated Glomerular Filt Rate > 60; Glucose Random 126 mg/dL (60-115); Potassium 3.8 mmol/L (3.3-5.1); Sodium 140 mmol/L (135-145)
[2022-05-01 06:46] LABS: B Type Natriuretic Peptide 1317 pg/mL (<100)
[2022-05-01 07:25] LABS: Platelet Count 214 X10*3/uL (160-400)
[2022-05-01] MEDS: Spironolactone 25 MG TABLET 12.5 MG PO (08:53)
[2022-05-01] MEDS: lisinopriL 10 MG TABLET PO (08:53)
[2022-05-01] MEDS: 0.9 % Sodium Chloride Flush 3 ML SYRINGE IVFLUSH ×3 (08:53→20:07)
[2022-05-01] MEDS: Aspirin 81 MG TAB.CHEW PO (08:56)
[2022-05-01] MEDS: Furosemide 40 MG/4 ML VIAL IVPUSH (08:57)
--- NOTE | 2022-05-01 11:00 | P.PNIM_ITS ---
Subjective Subjective Date of Service: 05/01/22 Interval History: follow up copd/chf interval history: better but not at baseline Physical Exam Vital Signs: Vital Signs: Last Vital Signs Temp 97.2 F 05/01/22 07:33 Pulse 89 05/01/22 08:04 Resp 18 05/01/22 08:04 BP 95/58 L 05/01/22 07:33 Pulse Ox 91 L 05/01/22 07:33 O2 Del Method 05/01/22 07:33 O2 Flow Rate 2 05/01/22 07:33 Oxygen Flow Rate 6 04/29/22 06:23 BMI result Body Mass Index 34.6 Const: Other: General: AO X 3, no acute distress Resp: rales at basesl CVS: S1,S2,RRR GI: +BS, NT, no distention Skin: No rash Neuro: motor grossly intact Psych: appropriate affect Objective Data Active Medications Acetaminophen (Acetaminophen 325 Mg Tablet) 650 mg PO Q6H PRN PRN Reason: Pain, Mild (Pain Scale 1-3) Aspirin (Aspirin 81 Mg Tab.Chew) 81 mg PO DAILY [facility] Last Admin: 05/01/22 08:56 Dose: 81 mg Documented By: BERENICE Albuterol Sulfate 2.5 mg/ (Ipratropium [place] 0.5 mg) 0 mg INHALE RQ4H WHILE AWAKE [facility] Last Admin: 05/01/22 08:02 Dose: 1 each Documented By: HERMILO Albuterol Sulfate 2.5 mg/ (Ipratropium [place] 0.5 mg) 0 mg INHALE Q3H PRN PRN Reason: sob Docusate Sodium (Docusate Sodium 100 Mg Capsule) 100 mg PO DAILY PRN PRN Reason: Constipation Enoxaparin Sodium (Enoxaparin Sodium 40 Mg/0.4 Ml Syringe) 40 mg SUBCUT Q24H [facility] Last Admin: 04/30/22 14:30 Dose: 40 mg Documented By: BERENICE Furosemide (Furosemide 40 Mg/4 Ml Vial) 40 mg IVPUSH BID@0900,1800 [facility]; Protoco l Last Admin: 05/01/22 08:57 Dose: 40 mg Documented By: BERENICE Lisinopril (Lisinopril 10 Mg Tablet) 10 mg PO DAILY [facility]; Protocol Last Admin: 05/01/22 08:53 Dose: 10 mg Documented By: BERENICE Melatonin (Melatonin 3 Mg Tablet) 6 mg PO BEDTIME PRN PRN Reason: Insomnia Last Admin: 04/30/22 23:50 Dose: 6 mg Documented By: ZAHRA Methylprednisolone Sodium Succinate (Methylprednisolone Sod Succ 125 Mg/2 Ml Vial) 60 mg IVPUSH Q8H [facility] Last Admin: 05/01/22 05:33 Dose: 60 mg Documented By: ZAHRA Ondansetron HCl (Ondansetron Hcl 4 Mg/2 Ml Vial) 4 mg IVPUSH Q8H PRN PRN Reason: Nausea and Vomiting Pravastatin Sodium (Pravastatin Sodium 40 Mg Tablet) 40 mg PO BEDTIME [facility] Last Admin: 04/30/22 22:08 Dose: 40 mg Documented By: ZAHRA Sodium Chloride (0.9 % Sodium Chloride Flush 3 Ml Syringe) 3 ml IVFLUSH QSHIFT [facility] Last Admin: 05/01/22 08:53 Dose: 3 ml Documented By: BERENICE Spironolactone (Spironolactone 25 Mg Tablet) 12.5 mg PO DAILY [facility]; Protocol Last Admin: 05/01/22 08:53 Dose: 12.5 mg Documented By: BERENICE Tamsulosin HCl (Tamsulosin Hcl 0.4 Mg Capsule) 0.4 mg PO DAILY@1630 [facility] Last Admin: 04/30/22 16:40 Dose: 0.4 mg Documented By: BERENICE Labs 05/01/22 05:22 05/01/22 05:22 Labs: Laboratory Results - last 24 hr 05/01/22 05/01/22 05/01/22 05:22 05:22 05:22 MCV 68.6 L MCH 17.1 L MCHC 25.0 L RDW 23.9 H Plt Count 214 MPV Not Reportable Absolute Nucleated RBC 0.140 H Nucleated RBC % (auto) 0.8 H Anion Gap 14 Estim Creat Clear Calc 70.7 Estimated GFR > 60 Random Glucose 126 H Calcium 8.7 B-Natriuretic Peptide 1317 H Assessment and Plan (1) Congestive heart failure: Status: Acute (2) Hypoxemia: Status: Acute (3) COPD with exacerbation: Status: Acute (4) Morbid obesity: Status: Acute Plan 72-year-old male with a PMH significant for COPD, CHF, BPH, and HLD who presents to the ED with?worsening shortness of breath. Pt will be admitted to the hospital for treatment and evaluation of CHF and COPD exacerbations. Acute diastolic CHF exacerbation--clinically responsing to diuresis continue iv lasix for one more day, aldactone added today echo ef 65 AChronic hypoxic respiratory failure with acute decompensation COPD exacerbation Solu-Medrol-->PO Prednisone Bronchodilators Titrate supplemental O2 for O2 sat>88 to 93 Continue Oxymask, wean as tolerated Suspected recent viral illness--resolved Iron-deficiency anemia, chronic and stable Leukocytosis--reactive d/t steroid BPH Continue tamsulosin modbid obesity: Encouraged to lose weight. DNR/DNI DVT Prophylaxis: Lovenox ongoing hospitlisation need: treatment of?COPD and CHF exacerbations-iv steriods ,nebs ,iv diuresis -moniter i/o, renal function/electrolytes ,cardiac workup pending Time Spent With Patient Time: Total time managing care of this patient today ____ minutes. Quality Stroke Does the patient have a stroke diagnosis?: No VTE Prior VTE?: No VTE Risk Level:: Medical - moderate - high VTE Device Contraindication: Treatment Not Indicated VTE Drug Contraindication: N/A - Med Ordered
--- NOTE | 2022-05-01 11:22 | MHC.CM.PN ---
IMM 05/01/22 Male lives by him self. He receives assit from Friend Isaias. He states that he is independent with ambulation, NO A.D. He uses 3L O2 via [place] supplied by [employer]. He reports SOB with activity. Pt has MOW in place. He has a cleaning lady on Fridays. Vax x 3. DP resume services in place. Patients friend Isaias will provide transport home. Per MD rounds may DC today. Patient was informed of possible DC today. He stated that he is not ready and will appeal if he is discharged today.
--- NOTE | 2022-05-01 13:24 | PM.PNCARD ---
Subjective Subjective Date of Service: 05/01/22 Principal diagnosis: CHF as well as COPD exacerbation. Interval history: Patient says he is breathing better but says that he is not ready to go home. He says he has not walked and not sure whether he is still short of breath with exertion what brought him to the hospital. Says abdominal distension is better. No leg swelling. Review of Systems Constitutional: Reports no additional constitutional complaints Eyes: Reports no additional eye complaints Cardiovascular: Denies Abdominal Distension, Denies chest pain, Denies leg edema, Denies palpitations and Reports dyspnea on exertion Respiratory: Reports no additional respiratory complaints and Reports dyspnea on exertion Gastrointestinal: Reports no additional gastrointestinal complaints Genitourinary: Reports no additional male genitourinary complaints Musculoskeletal: Reports no additional musculoskeletal complaints Skin/Breast: Reports system reviewed and no additional complaints, except as docu Reports system reviewed and no additional complaints, except as documented Psychiatric: Reports no additional psychiatric complaints Endocrine: Denies palpitations Physical Exam Vital Signs: Last Vital Signs Temp 97.4 F 05/01/22 11:05 Pulse 89 05/01/22 12:14 Resp 16 05/01/22 12:14 BP 92/54 L 05/01/22 11:05 Pulse Ox 92 05/01/22 11:05 O2 Del Method 05/01/22 11:05 O2 Flow Rate 4 05/01/22 11:05 Oxygen Flow Rate 6 04/29/22 06:23 BMI result Body Mass Index 34.6 Const General: cooperative, comfortable, no acute distress, alert, awake and anxious Nutritional Appearance: overweight Orientation/consciousness: patient oriented x3 Neck Neck: Yes trachea midline, Yes supple and Yes no JVD Cardio Jugular venous distension: no JVD Rate: regular rate Rhythm: regular rhythm Heart sounds: S1 normal heart sound present, S2 normal heart sound present, no click, no gallops, no murmurs and no rubs Neuro General: patient oriented x3 Extrem General: Yes no clubbing, cyanosis or edema Objective Labs and Meds 05/01/22 05:22 05/01/22 05:22 Lab results: Laboratory Results - last 24 hr 05/01/22 05/01/22 05/01/22 05:22 05:22 05:22 WBC 17.3 H RBC 5.25 Hgb 9.0 L Hct 36.0 L MCV 68.6 L MCH 17.1 L MCHC 25.0 L RDW 23.9 H Plt Count 214 MPV Not Reportable Absolute Nucleated RBC 0.140 H Nucleated RBC % (auto) 0.8 H Sodium 140 Potassium 3.8 Chloride 104 Carbon Dioxide 26 Anion Gap 14 BUN 34 H Creatinine 1.00 Estim Creat Clear Calc 70.7 Estimated GFR > 60 Random Glucose 126 H Calcium 8.7 B-Natriuretic Peptide 1317 H Progress Note: A&P Assessment and plan (1) CHF exacerbation: Status: Acute Assessment and Plan: congestive heart failure exacerbation predominantly right-sided heart failure related to significant COPD and suggestive chronic cor pulmonale. Should consider for home oxygen therapy, patient already on home oxygen not sure if he is using all the time. Encouraged to continue to use it if he needs it. Continue aggressive management of COPD with bronchodilators. Clinically appears to be more euvolemic. Can switch to oral diuretics with Lasix 40 mg daily. CHF education to be provided. Low-salt diet as outpatient. Continue Aldactone therapy. Once patient ambulated and is doing better and is breathing better can be discharged home. Will sign of the case at this point time. Follow-up as outpatient Time Spent With Patient Time: Total time managing care of this patient today ____ minutes. Progress Note: Quality Stroke Does the patient have a stroke diagnosis?: No Procedures Date of Service Date of Service: 05/01/22
[2022-05-01] MEDS: Enoxaparin Sodium 40 MG/0.4 ML SYRINGE SUBCUT (15:18)
[2022-05-01] MEDS: Furosemide 40 MG TABLET PO (17:10)
[2022-05-01] MEDS: Tamsulosin HCL 0.4 MG CAPSULE PO (17:11)
--- NOTE | 2022-05-01 18:30 | PC.NURSE ---
Pt ambulated this morning with nurse. 4L via n/c and mobile tank. O2 sats were 84% after standing and putting on pajama bottoms. After standing and walking a few steps, O2 climbed to 90% but after about ten feet of ambulation pt began to desat again, was redirected back to a seated position, O2 titrated up to 6L. O2 sats reached as low as 69%. After about 30 seconds, sat climbed to 89% and pt was returned to 4L in bed. MD and RT made aware.
[2022-05-01] MEDS: Pravastatin Sodium 40 MG TABLET PO (20:07)
--- NOTE | 2022-05-01 21:39 | PC.NURSE ---
1999 BP-84/47 HR-103 received lasix 40mg po at 1700.Pt asymptomatic notified no new orders at this time.
[2022-05-01] MEDS: Melatonin 3 MG TABLET 6 MG PO (23:09)
[2022-05-02] VITALS (13 sets, daily range): BP systolic 82–104; BP diastolic 45–63; PULSE 94–107; RESP 16–24; TEMP 36.4–36.9; O2SAT 89–93
[2022-05-02] MEDS: Aspirin 81 MG TAB.CHEW PO (09:27)
[2022-05-02] MEDS: predniSONE 20 MG TABLET 40 MG PO (09:27)
[2022-05-02] MEDS: 0.9 % Sodium Chloride Flush 3 ML SYRINGE IVFLUSH ×3 (09:27→19:31)
--- NOTE | 2022-05-02 10:13 | HO.PM.IMPN ---
Subjective Subjective Date of Service: 05/02/22 Interval History: follow up copd/chf interval history: he feels much better today, BP on low side assymptoamtic Physical Exam Vital Signs: Vital Signs: Last Vital Signs Temp 98.3 F 05/02/22 08:00 Pulse 97 05/02/22 08:00 Resp 18 05/02/22 08:00 BP 92/58 L 05/02/22 09:18 Pulse Ox 91 L 05/02/22 08:00 O2 Del Method 05/02/22 08:00 O2 Flow Rate 4.5 05/02/22 03:36 Oxygen Flow Rate 6 04/29/22 06:23 BMI result Body Mass Index 34.6 Const: Other: General: AO X 3, no acute distress Resp: rales at basesl CVS: S1,S2,RRR GI: +BS, NT, no distention Skin: No rash Neuro: motor grossly intact Psych: appropriate affect Objective Data Active Medications Acetaminophen (Acetaminophen 325 Mg Tablet) 650 mg PO Q6H PRN PRN Reason: Pain, Mild (Pain Scale 1-3) Aspirin (Aspirin 81 Mg Tab.Chew) 81 mg PO DAILY [facility] Last Admin: 05/02/22 09:27 Dose: 81 mg Documented By: ROSHAN Albuterol Sulfate 2.5 mg/ (Ipratropium [place] 0.5 mg) 0 mg INHALE RQ4H WHILE AWAKE [facility] Last Admin: 05/02/22 07:41 Dose: 1 each Documented By: ALTAGRACIA Albuterol Sulfate 2.5 mg/ (Ipratropium [place] 0.5 mg) 0 mg INHALE Q3H PRN PRN Reason: sob Docusate Sodium (Docusate Sodium 100 Mg Capsule) 100 mg PO DAILY PRN PRN Reason: Constipation Enoxaparin Sodium (Enoxaparin Sodium 40 Mg/0.4 Ml Syringe) 40 mg SUBCUT Q24H [facility] Last Admin: 05/01/22 15:18 Dose: 40 mg Documented By: BERENICE Furosemide (Furosemide 40 Mg Tablet) 40 mg PO BID@0900,1800 [facility]; Protocol Last Admin: 05/02/22 09:22 Dose: Not Given Documented By: ROSHAN Non-Admin Reason: Decreased Blood Pressure Lisinopril (Lisinopril 10 Mg Tablet) 10 mg PO DAILY [facility]; Protocol Last Admin: 05/02/22 09:22 Dose: Not Given Documented By: ROSHAN Non-Admin Reason: Decreased Blood Pressure Melatonin (Melatonin 3 Mg Tablet) 6 mg PO BEDTIME PRN PRN Reason: Insomnia Last Admin: 05/01/22 23:09 Dose: 6 mg Documented By: VILLA Ondansetron HCl (Ondansetron Hcl 4 Mg/2 Ml Vial) 4 mg IVPUSH Q8H PRN PRN Reason: Nausea and Vomiting Pravastatin Sodium (Pravastatin Sodium 40 Mg Tablet) 40 mg PO BEDTIME [facility] Last Admin: 05/01/22 20:07 Dose: 40 mg Documented By: VILLA Prednisone (Prednisone 20 Mg Tablet) 40 mg PO DAILY [facility] Last Admin: 05/02/22 09:27 Dose: 40 mg Documented By: ROSHAN Sodium Chloride (0.9 % Sodium Chloride Flush 3 Ml Syringe) 3 ml IVFLUSH QSHIFT [facility] Last Admin: 05/02/22 09:27 Dose: 3 ml Documented By: ROSHAN Spironolactone (Spironolactone 25 Mg Tablet) 12.5 mg PO DAILY [facility]; Protocol Last Admin: 05/02/22 09:22 Dose: Not Given Documented By: ROSHAN Non-Admin Reason: Decreased Blood Pressure Tamsulosin HCl (Tamsulosin Hcl 0.4 Mg Capsule) 0.4 mg PO DAILY@1630 [facility] Last Admin: 05/01/22 17:11 Dose: 0.4 mg Documented By: JENNYEP Labs 05/01/22 05:22 05/01/22 05:22 Assessment and Plan (1) Congestive heart failure: Status: Acute (2) Hypoxemia: Status: Acute (3) COPD with exacerbation: Status: Acute (4) Morbid obesity: Status: Acute Plan 72-year-old male with a PMH significant for COPD, CHF, BPH, and HLD who presents to the ED with?worsening shortness of breath. Pt will be admitted to the hospital for treatment and evaluation of CHF and COPD exacerbations. Acute diastolic CHF exacerbation--clinically responsing to diuresis continue oral lasix 40 bid, continue lisinopril and aldacton so long as SPB > 100 Chronic hypoxic respiratory failure with acute decompensation COPD exacerbation Solu-Medrol-->PO Prednisone Bronchodilators Titrate supplemental O2 for O2 sat>88 to 93 Suspected recent viral illness--resolved Iron-deficiency anemia, chronic and stable Leukocytosis--reactive d/t steroid BPH Continue tamsulosin modbid obesity: Encouraged to lose weight. Deconditioning, PT eval DNR/DNI DVT Prophylaxis: Lovenox ongoing hospitlisation need: treatment of?COPD and CHF exacerbations-iv steriods ,nebs ,iv diuresis -moniter i/o, renal function/electrolytes , monitoring of BP Time Spent With Patient Time: Total time managing care of this patient today ____ minutes. Quality Stroke Does the patient have a stroke diagnosis?: No VTE Prior VTE?: No VTE Risk Level:: Medical - moderate - high VTE Device Contraindication: Treatment Not Indicated VTE Drug Contraindication: N/A - Med Ordered
[2022-05-02] MEDS: Enoxaparin Sodium 40 MG/0.4 ML SYRINGE SUBCUT (14:12)
[2022-05-02] MEDS: Tamsulosin HCL 0.4 MG CAPSULE PO (15:54)
[2022-05-02] MEDS: Pravastatin Sodium 40 MG TABLET PO (19:31)
[2022-05-02] MEDS: Melatonin 3 MG TABLET 6 MG PO (22:11)
[2022-05-03] VITALS (17 sets, daily range): BP systolic 92–128; BP diastolic 55–76; PULSE 71–150; RESP 14–24; TEMP 36.6–36.9; O2SAT 90–95
--- NOTE | 2022-05-03 | ECG_ITS ---
Test Reason : aflutter Blood Pressure : / mmHG Vent. Rate : 149 BPM Atrial Rate : 298 BPM P-R Int : 000 ms QRS Dur : 096 ms QT Int : 322 ms P-R-T Axes : 000 144 -32 degrees QTc Int : 507 ms Atrial flutter with 2:1 A-V conduction Right ventricular hypertrophy Nonspecific ST and T wave abnormality Abnormal ECG When compared with ECG of 29-APR-2022 06:23, Atrial flutter has replaced Sinus rhythm Vent. rate has increased BY 60 BPM Incomplete right bundle branch block is no longer Present Referred By: Melly Oneill Electronically Signed By:RENEE BOOTH MD
--- NOTE | 2022-05-03 04:54 | PC.NURSE ---
Addendum entered by Stephanie Morales RN 05/03/22 06:48: Metoprolol 5 mg IV given, VSS, HR went down to 120s. Addendum entered by Stephanie Morales RN 05/03/22 06:32: left nares packing fell off again, gauze pack placed, Dr. Oneill was made aware. Addendum entered by Stephanie Morales RN 05/03/22 06:22: EKG done and image sent to Dr. Oneill. Addendum entered by Stephanie Morales RN 05/03/22 06:06: HR went up to 140s sustaining, rst of vitals are okay, pt is asymptomatic on bed, Dr. Oneill was notified. Original Note: Pt is alert and oriented, denies any pain, still with SOB even at rest, O2 at 5L/min via NC. Around 2am pt noted with bloody nose, pt claimed it started after he blew his nose, cold compress applied on forehead, pressure dressing applied on both nares, O2 humidifier was placed, bleeding is persistent after few mins, Dr. Oneill was paged to come to the bedside, tried nasal packing with gauze but didn't stopped the dripping, Dr. Oneill inserted rhino racket nasal packing, pt developed some audible crackles with SOB, RT came to give neb, left nasal packing fell off, and nose is still dripping bleeding, MD made aware, Dr. Oneill came to reinsert the rhinrocket packing, around 5am, left packing fell off again and noted that bleeding is still trickling, Dr. Oneill was informed, gauze packing placed for now.
[2022-05-03] MEDS: Metoprolol Tartrate 5 MG/5 ML VIAL IVPUSH (06:39)
[2022-05-03 08:02] LABS: MANUAL DIFF FLAG NO
[2022-05-03 08:14] LABS: Basophils Percent Auto 0.1 % (0-2); Eosinophils Percent Auto 0.1 % (0-4); Hematocrit 36.3 % (42.0-52.0); Hemoglobin 9.2 g/dl (14.0-18.0); Imm Gran Abs Auto 0.14 X10*3/uL (0.00-0.03); Imm Gran Pct Auto 0.9 % (0.0-0.4); Lymphocytes Absolute Auto 0.9 X10*3/uL (1.2-4.9); Lymphocytes Percent Auto 5.6 % (20-40); Mean Corpuscular HGB Conc 25.3 g/dl (31.0-36.0); Mean Corpuscular Hemoglobin 17.7 pg (27.0-33.0); Mean Corpuscular Volume 69.8 fL (80.0-98.0); Monocytes Absolute Auto 1.1 X10*3/uL (0.1-1.2); Neutrophils Absolute Auto 13.5 x10*3/uL (2.0-8.3); Neutrophils Percent Auto 86.3 % (45-73); Platelet Count 210 X10*3/uL (160-400); Red Cell Distribution Width 24.2 % (11.0-16.0); White Blood Count 15.6 X10*3/uL (4.8-10.8)
[2022-05-03 08:16] LABS: NRBC Pct Auto 1.5 /100WBC (0.0-0.2)
[2022-05-03 08:18] LABS: INTERNATIONAL NORM RATIO 1.4 (0.9-1.1); Prothrombin Time 16.1 SEC (10.0-13.1)
[2022-05-03 08:21] LABS: Anion Gap 11 (12-20); Blood Urea Nitrogen 29 mg/dL (9-16); Calcium 9.1 mg/dL (8.4-10.2); Carbon Dioxide 28 mmol/L (22-29); Chloride 102 mmol/L (96-108); Creatinine Clr Calc Pharmacy 89.5; Estimated Glomerular Filt Rate > 60; Glucose Random 99 mg/dL (60-115); Potassium 3.6 mmol/L (3.3-5.1); Sodium 137 mmol/L (135-145)
[2022-05-03] MEDS: dilTIAZem HCL 125 MG in 0.9 % Sodium Chloride 100 ML 10 MG IVCONT (08:27)
[2022-05-03] MEDS: Furosemide 40 MG TABLET PO (09:40)
[2022-05-03] MEDS: lisinopriL 10 MG TABLET PO (09:40)
[2022-05-03] MEDS: predniSONE 20 MG TABLET 40 MG PO (09:40)
[2022-05-03] MEDS: Spironolactone 25 MG TABLET 12.5 MG PO (09:40)
[2022-05-03] MEDS: Amiodarone HCL 900 MG in 0.9 % Sodium Chloride 500 ML 34.53 MG IVCONT (09:53)
--- NOTE | 2022-05-03 11:01 | PM.PNCARD ---
Subjective Subjective Date of Service: 05/03/22 Principal diagnosis: CHF as well as COPD exacerbation. Interval history: Patient is very anxious and this developed significant epistaxis overnight and continues to have epistaxis episodes. Very frustrated by overall. His right nostril seems to be PAC. Left nostril as gauze. Patient also developed atrial flutter with rapid ventricular response overnight which has been difficult control on full-dose IV Cardizem. This morning we start him on IV amiodarone with some break in his heart rate into the 110-130 range. He denies any cardiac symptoms. He is most bothered by bleeding nose. Review of Systems Constitutional: Reports no additional constitutional complaints Reports epistaxis Cardiovascular: Reports no additional cardiovascular complaints and Reports dyspnea Respiratory: Reports cough and Reports dyspnea Gastrointestinal: Reports no additional gastrointestinal complaints Reports system reviewed and no additional complaints, except as documented Physical Exam Vital Signs: Last Vital Signs Temp 98.4 F 05/03/22 08:42 Pulse 150 H 05/03/22 08:55 Resp 21 H 05/03/22 08:42 BP 114/74 05/03/22 08:55 Pulse Ox 95 05/03/22 08:55 O2 Del Method 05/03/22 08:42 O2 Flow Rate 6 05/03/22 08:42 Oxygen Flow Rate 6 04/29/22 06:23 BMI result Body Mass Index 34.6 Const General: cooperative and anxious Nutritional Appearance: obese Orientation/consciousness: patient oriented x3 Neck Neck: Yes trachea midline, Yes supple and Yes no JVD Resp Effort & Inspection: normal respiratory effort Auscultation: wheezes and diminished lung sounds Cardio Rate: tachycardic Rhythm: abnormal rhythm irregularly irregular Heart sounds: S1 normal heart sound present, S2 normal heart sound present, no click, no gallops and no murmurs Skin General skin exam: no rashes or lesions noted Neuro General: patient oriented x3 and no focal motor deficits Extrem General: Yes no clubbing, cyanosis or edema Objective Labs and Meds 05/03/22 07:57 05/03/22 07:57 Lab results: Laboratory Results - last 24 hr 05/03/22 05/03/22 05/03/22 07:57 07:57 07:57 WBC 15.6 H Cancelled RBC 5.20 Cancelled Hgb 9.2 L Cancelled Hct 36.3 L Cancelled MCV 69.8 L Cancelled MCH 17.7 L Cancelled MCHC 25.3 L Cancelled RDW 24.2 H Cancelled Plt Count 210 Cancelled MPV Not Reportable Cancelled Immature Gran % (Auto) 0.9 H Neut % (Auto) 86.3 H Lymph % (Auto) 5.6 L [place] % (Auto) 7.0 Eos % (Auto) 0.1 Baso % (Auto) 0.1 Lymph # (Auto) 0.9 L [place] # (Auto) 1.1 Eos # (Auto) 0.0 Baso # (Auto) 0.0 Abs Immat Gran (auto) 0.14 H Absolute Neuts (auto) 13.5 H Absolute Nucleated RBC 0.230 H Cancelled Nucleated RBC % (auto) 1.5 H Cancelled PT INR Sodium Potassium Chloride Carbon Dioxide Anion Gap BUN Creatinine Estim Creat Clear Calc Estimated GFR Random Glucose Calcium Blood Type A Positive Antibody Screen NEGATIVE 05/03/22 05/03/22 07:57 07:57 WBC RBC Hgb Hct MCV MCH MCHC RDW Plt Count MPV Immature Gran % (Auto) Neut % (Auto) Lymph % (Auto) [place] % (Auto) Eos % (Auto) Baso % (Auto) Lymph # (Auto) [place] # (Auto) Eos # (Auto) Baso # (Auto) Abs Immat Gran (auto) Absolute Neuts (auto) Absolute Nucleated RBC Nucleated RBC % (auto) PT 16.1 H INR 1.4 H Sodium 137 Potassium 3.6 Chloride 102 Carbon Dioxide 28 Anion Gap 11 L BUN 29 H Creatinine 0.79 Estim Creat Clear Calc 89.5 Estimated GFR > 60 Random Glucose 99 Calcium 9.1 Blood Type Antibody Screen Progress Note: A&P Assessment and plan (1) Atrial flutter with rapid ventricular response: Status: Acute Assessment and Plan: Patient developed atrial flutter overnight with rapid ventricular response difficult control and also unfortunate developed significant epistaxis for which she cannot get oral anticoagulation or any form of anticoagulation at this point in time. Is less than 24 hour since his onset of atrial flutter. Will therefore try to chemically cardiovert him with IV amiodarone. If this is unsuccessful will have to just pursue rate control approach. For now continue IV Cardizem. Also add digoxin 0.25 mg IV push q.6 hours x3 doses. If he cardioverted to sinus rhythm switch to p.o. amiodarone 400 mg b.i.d.. He needs aggressive treatment of his epistaxis and will most likely require more packing and/or ENT consultation. For now obviously his oral anticoagulation therapy will have to be withheld (2) Congestive heart failure: Status: Acute Assessment and Plan: Heart failure syndrome seems to have resolved. Currently does not appear to be any formal significant heart failure. Although his risk with rapid atrial flutter. Continue oral diuretic therapy. Continue aggressive blood pressure control. Continue management of his COPD. Will continue to follow with you Time Spent With Patient Time: Total time managing care of this patient today ____ minutes. Progress Note: Quality Stroke Does the patient have a stroke diagnosis?: No Procedures Date of Service Date of Service: 05/03/22
--- NOTE | 2022-05-03 11:17 | HO.PM.IMPN ---
Subjective Subjective Date of Service: 05/03/22 Interval History: follow up copd/chf interval history: He develloped nose bleed overnight and nose had to be packed, he also went into AFIB with RVR with Heart rate reaching 150 and given IV metoprolol and now on cardizem amio drip and now Iv digoxin. He is very frustrated about the nose bleed Review of Systems nose bleed, no palpitaiton or sob Physical Exam Vital Signs: Vital Signs: Last Vital Signs Temp 98.4 F 05/03/22 08:42 Pulse 150 H 05/03/22 08:55 Resp 21 H 05/03/22 08:42 BP 114/74 05/03/22 08:55 Pulse Ox 95 05/03/22 08:55 O2 Del Method 05/03/22 08:42 O2 Flow Rate 6 05/03/22 08:42 Oxygen Flow Rate 6 04/29/22 06:23 BMI result Body Mass Index 34.6 Const: Other: General: AO X 3, no acute distress HEENT: nose packed with rhinojet, no bleeding into mouth Resp: rales at basesl CVS: S1,S2, iregular iregualr, GI: +BS, NT, no distention Skin: No rash Neuro: motor grossly intact Psych: appropriate affect Objective Data Active Medications Acetaminophen (Acetaminophen 325 Mg Tablet) 650 mg PO Q6H PRN PRN Reason: Pain, Mild (Pain Scale 1-3) Aspirin (Aspirin 81 Mg Tab.Chew) 81 mg PO DAILY [facility] Last Admin: 05/03/22 09:41 Dose: Not Given Documented By: BRYNN Non-Admin Reason: nosebleed Albuterol Sulfate 2.5 mg/ (Ipratropium [place] 0.5 mg) 0 mg INHALE RQ4H WHILE AWAKE [facility] Last Admin: 05/03/22 10:50 Dose: Not Given Documented By: ALTAGRACIA Non-Admin Reason: Elevated Heart Rate Albuterol Sulfate 2.5 mg/ (Ipratropium [place] 0.5 mg) 0 mg INHALE Q3H PRN PRN Reason: sob Digoxin (Digoxin 0.5 Mg/2 Ml Ampul) 0.25 mg IVPUSH Q6H [facility] Stop: 05/03/22 17:01 Docusate Sodium (Docusate Sodium 100 Mg Capsule) 100 mg PO DAILY PRN PRN Reason: Constipation Furosemide (Furosemide 40 Mg Tablet) 40 mg PO BID@0900,1800 [facility]; Protocol Last Admin: 05/03/22 09:40 Dose: 40 mg Documented By: BRYNN Diltiazem HCl 125 mg/ Sodium (Chloride) 125 mls @ 0 mls/hr IVCONT .Q0M [facility]; Protocol Last Titration: 05/03/22 08:46 Dose: 15 mg/hr, 15 mls/hr Documented By: BRYNN Amiodarone HCl 900 mg/ Sodium (Chloride) 518 mls @ 34.533 mls/hr IVCONT .Q15H1M [facility]; Protocol Last Admin: 05/03/22 09:53 Dose: 1 mg/min, 34.53 mls/hr Documented By: BRYNN Lisinopril (Lisinopril 10 Mg Tablet) 10 mg PO DAILY [facility]; Protocol Last Admin: 05/03/22 09:40 Dose: 10 mg Documented By: BRYNN Melatonin (Melatonin 3 Mg Tablet) 6 mg PO BEDTIME PRN PRN Reason: Insomnia Last Admin: 05/02/22 22:11 Dose: 6 mg Documented By: ESTEFANIA Ondansetron HCl (Ondansetron Hcl 4 Mg/2 Ml Vial) 4 mg IVPUSH Q8H PRN PRN Reason: Nausea and Vomiting Pravastatin Sodium (Pravastatin Sodium 40 Mg Tablet) 40 mg PO BEDTIME [facility] Last Admin: 05/02/22 19:31 Dose: 40 mg Documented By: ESTEFANIA Prednisone (Prednisone 20 Mg Tablet) 40 mg PO DAILY [facility] Last Admin: 05/03/22 09:40 Dose: 40 mg Documented By: BRYNN Sodium Chloride (0.9 % Sodium Chloride Flush 3 Ml Syringe) [facility] Last Admin: 05/03/22 09:29 Dose: Not Given Documented By: BRYNN Non-Admin Reason: IV Running Spironolactone (Spironolactone 25 Mg Tablet) 12.5 mg PO DAILY [facility]; Protocol Last Admin: 05/03/22 09:40 Dose: 12.5 mg Documented By: BRYNN Tamsulosin HCl (Tamsulosin Hcl 0.4 Mg Capsule) 0.4 mg PO DAILY@1630 [facility] Last Admin: 05/02/22 15:54 Dose: 0.4 mg Documented By: PARADISE Labs 05/03/22 07:57 05/03/22 07:57 Labs: Laboratory Results - last 24 hr 05/03/22 05/03/22 05/03/22 07:57 07:57 07:57 MCV 69.8 L Cancelled MCH 17.7 L Cancelled MCHC 25.3 L Cancelled RDW 24.2 H Cancelled Plt Count 210 Cancelled MPV Not Reportable Cancelled Immature Gran % (Auto) 0.9 H Neut % (Auto) 86.3 H Lymph % (Auto) 5.6 L [place] % (Auto) 7.0 Eos % (Auto) 0.1 Baso % (Auto) 0.1 Lymph # (Auto) 0.9 L [place] # (Auto) 1.1 Eos # (Auto) 0.0 Baso # (Auto) 0.0 Abs Immat Gran (auto) 0.14 H Absolute Neuts (auto) 13.5 H Absolute Nucleated RBC 0.230 H Cancelled Nucleated RBC % (auto) 1.5 H Cancelled PT INR Anion Gap Estim Creat Clear Calc Estimated GFR Random Glucose Calcium Blood Type A Positive Antibody Screen NEGATIVE 05/03/22 05/03/22 07:57 07:57 MCV MCH MCHC RDW Plt Count MPV Immature Gran % (Auto) Neut % (Auto) Lymph % (Auto) [place] % (Auto) Eos % (Auto) Baso % (Auto) Lymph # (Auto) [place] # (Auto) Eos # (Auto) Baso # (Auto) Abs Immat Gran (auto) Absolute Neuts (auto) Absolute Nucleated RBC Nucleated RBC % (auto) PT 16.1 H INR 1.4 H Anion Gap 11 L Estim Creat Clear Calc 89.5 Estimated GFR > 60 Random Glucose 99 Calcium 9.1 Blood Type Antibody Screen Assessment and Plan (1) Congestive heart failure: Status: Acute (2) Hypoxemia: Status: Acute (3) COPD with exacerbation: Status: Acute (4) Morbid obesity: Status: Acute Plan 72-year-old male with a PMH significant for COPD, CHF, BPH, and HLD who presents to the ED with?worsening shortness of breath. Pt will be admitted to the hospital for treatment and evaluation of CHF and COPD exacerbations. New onset of AFIB with RVR--started on IV cardizem and IV amio, no acticoagulation at moment due to nosebleed, cardiology is advising, digoxin is been added, if doesn't convert and bleeding continues to be an issue we might need to stop amio as post cardioversion we will not rudolph able to anticoagulate Epistaxis--packed overnight but packing appear small so been replaced with a bigger one, INR is 1.4 give vit K, consider FFP if not better, hold anticoagulation of any form Acute diastolic CHF exacerbation--clinically responsing to diuresis continue oral lasix 40 bid, continue lisinopril and aldacton so long as SPB > 100 Chronic hypoxic respiratory failure with acute decompensation COPD exacerbation Solu-Medrol-->PO Prednisone Bronchodilators Titrate supplemental O2 for O2 sat>88 to 93 Suspected recent viral illness--resolved Iron-deficiency anemia, chronic and stable, no indication for transfusion at this time Leukocytosis--reactive d/t steroid BPH Continue tamsulosin modbid obesity: Encouraged to lose weight. Deconditioning, PT eval DNR/DNI DVT Prophylaxis: holding Lovenox to nose bleedin, compression device Need for hospitaliazation new AFIB with RVR needing IV meds for control and need for continuous cardiac monitoring and evaluation by cardiology Time Spent With Patient Time: Total time managing care of this patient today ____ minutes. Quality Stroke Does the patient have a stroke diagnosis?: No VTE Prior VTE?: No VTE Risk Level:: Medical - moderate - high VTE Device Contraindication: Treatment Not Indicated VTE Drug Contraindication: N/A - Med Ordered
[2022-05-03] MEDS: Digoxin 0.5 MG/2 ML AMPUL 0.25 MG IVPUSH ×2 (11:48→17:37)
[2022-05-03] MEDS: Phytonadione (Vit K1) Oral 10 MG/ML AMPUL 5 MG PO (11:48)
[2022-05-03] MEDS: Amoxicillin/Potassium Clav 500 MG TABLET PO (13:52)
--- NOTE | 2022-05-03 17:13 | PC.NURSE ---
Pt started on cardizem drip at 0827 at a a rate of 10mg/hr, after 15 min was titrated up to 15 mg/hr. A second IV was started for an amiodorone drip, which ran at 1 mg/min for 6 hours, and was then titrated down to 0.5 mg/min. The cardizem drip was paused at 1407 for HR < 90. Cardizem drip restarted at 1703 at 5mg/hr after consulting with . aware of patient's soft BPs.
[2022-05-03] MEDS: Tamsulosin HCL 0.4 MG CAPSULE PO (17:36)
[2022-05-03] MEDS: Melatonin 3 MG TABLET 6 MG PO (20:34)
[2022-05-03] MEDS: Pravastatin Sodium 40 MG TABLET PO (20:34)
[2022-05-04] VITALS (8 sets, daily range): BP systolic 92–108; BP diastolic 52–73; PULSE 69–106; RESP 18–76; TEMP 36.3–37.2; O2SAT 90–97
[2022-05-04] MEDS: Amoxicillin/Potassium Clav 500 MG TABLET PO ×2 (01:39→13:53)
--- NOTE | 2022-05-04 07:05 | PC.NURSE ---
Patient has cardizem and amiodorone drip running. Patients heart rate was sustaining in the 70s and 80s 19:15. Cardizem drip was held, MD aware. Amiodrone drip continued running at 0.5mg/min.
[2022-05-04] MEDS: Spironolactone 25 MG TABLET 12.5 MG PO (08:53)
[2022-05-04] MEDS: predniSONE 20 MG TABLET 40 MG PO (08:53)
[2022-05-04] MEDS: lisinopriL 10 MG TABLET PO (08:54)
[2022-05-04] MEDS: Furosemide 40 MG TABLET PO (08:54)
[2022-05-04] MEDS: dilTIAZem HCL 125 MG in 0.9 % Sodium Chloride 100 ML IVCONT ×2 (08:56→23:56)
[2022-05-04] MEDS: Amiodarone HCL 900 MG in 0.9 % Sodium Chloride 500 ML 17.27 MG IVCONT (08:57)
--- NOTE | 2022-05-04 09:16 | PC.NURSE ---
MD expressed concern regarding the stopping and starting of pt's cardizem drip. instructed RNs to not hold cardizem drip. This RN informed MD of the current protocol which states the drip be held if HR is less than 90 and to contact MD if the drip is held and/or if max infusion rate is reached. reiterated that this pt's drip was not to be held.
--- NOTE | 2022-05-04 10:50 | PM.PNCARD ---
Subjective Subjective Date of Service: 05/04/22 Principal diagnosis: CHF as well as COPD exacerbation. Interval history: Patient has had no epistaxis since packing his left nostril yesterday. Is agitated now and once the packing out. Repeat atrial flutter with borderline rate control. Denies any palpitations. Continues to assure of breath and. Denies any any like Review of Systems Constitutional: Reports no additional constitutional complaints Denies epistaxis Cardiovascular: Reports no additional cardiovascular complaints and Reports dyspnea Respiratory: Reports dyspnea Reports system reviewed and no additional complaints, except as documented Physical Exam Vital Signs: Last Vital Signs Temp 98.4 F 05/04/22 07:42 Pulse 105 H 05/04/22 07:42 Resp 24 H 05/04/22 07:42 BP 108/73 05/04/22 07:42 Pulse Ox 91 L 05/04/22 07:42 O2 Del Method 05/04/22 07:42 O2 Flow Rate 6 05/04/22 07:42 Oxygen Flow Rate 6 04/29/22 06:23 BMI result Body Mass Index 34.6 Const General: cooperative, comfortable, alert and awake Nutritional Appearance: overweight Orientation/consciousness: patient oriented x3 Neck Neck: Yes trachea midline, Yes supple and Yes no JVD Resp Effort & Inspection: normal respiratory effort Auscultation: wheezes and diminished lung sounds Cardio Jugular venous distension: no JVD Rhythm: abnormal rhythm irregularly irregular Heart sounds: S1 normal heart sound present and S2 normal heart sound present Skin General skin exam: no rashes or lesions noted and ecchymosis Neuro General: patient oriented x3 Extrem General: Yes no clubbing, cyanosis or edema Objective Labs and Meds 05/03/22 07:57 05/03/22 07:57 Progress Note: A&P Assessment and plan (1) Atrial flutter with rapid ventricular response: Status: Acute Assessment and Plan: Atrial flutter with rapid ventricular response with better rate control. However given more than 24 hour of atrial flutter and inability to anticoagulate due to significant epistaxis will hold off and discontinue amiodarone therapy. Will pursue rate control approach at this point time. Once cleared for oral anticoagulation by ENT would start him on oral anticoagulation therapy. Continue IV Cardizem drip. Start p.o. metoprolol 12.5 mg q.6 hours. Also add digoxin 0.125 mg to his regimen. If rate remains better controlled and blood pressure is stable will gradually uptitrate metoprolol therapy and slowly taper IV Cardizem therapy. (2) Congestive heart failure: Status: Acute Assessment and Plan: Congestive heart failure remains euvolemic. Continue p.o. Lasix. Continue rate control as above. Continue COPD management with oxygen supplementation as well as bronchodilators. Switch to Xopenex for bronchodilation. Will continue to follow with you Time Spent With Patient Time: Total time managing care of this patient today ____ minutes. Progress Note: Quality Stroke Does the patient have a stroke diagnosis?: No Procedures Date of Service Date of Service: 05/04/22
--- NOTE | 2022-05-04 12:21 | PC.NURSE ---
Rhino rocket removed from L nare at approx 1030. Pt reports great relief. No bleeding noted. Pt advised to not blow nose, sneeze, or vigourously cough.
--- NOTE | 2022-05-04 14:29 | P.PNIM_ITS ---
Subjective Subjective Date of Service: 05/04/22 Interval History: follow up copd/chf interval history: Patient has not had any further nose bleed, HR was good overnight but went back up this morning and had to be restarted on IV cardizem drip and is doing better, he has requested nasal packing to be removed and done without complication Physical Exam Vital Signs: Vital Signs: Last Vital Signs Temp 98.2 F 05/04/22 12:00 Pulse 106 H 05/04/22 12:00 Resp 24 H 05/04/22 12:00 BP 104/61 05/04/22 12:00 Pulse Ox 91 L 05/04/22 12:00 O2 Del Method 05/04/22 12:00 O2 Flow Rate 6 05/04/22 12:00 Oxygen Flow Rate 6 04/29/22 06:23 BMI result Body Mass Index 34.6 Const: Other: General: AO X 3, no acute distress HEENT: nose packed with rhinojet, no bleeding into mouth Resp: rales at basesl CVS: S1,S2, iregular iregualr GI: +BS, NT, no distention Skin: No rash Neuro: motor grossly intact Psych: appropriate affect Objective Data Active Medications Acetaminophen (Acetaminophen 325 Mg Tablet) 650 mg PO Q6H PRN PRN Reason: Pain, Mild (Pain Scale 1-3) Amoxicillin/Clavulanate Potassium (Amoxicillin/Potassium Clav 500 Mg Tablet) 500 mg PO Q12H [facility] Last Admin: 05/04/22 13:53 Dose: 500 mg Documented By: BRYNN Aspirin (Aspirin 81 Mg Tab.Chew) 81 mg PO DAILY [facility] Last Admin: 05/04/22 08:54 Dose: Not Given Documented By: BRYNN Non-Admin Reason: Physician Held Med Albuterol Sulfate 2.5 mg/ (Ipratropium [place] 0.5 mg) 0 mg INHALE RQ4H WHILE AWAKE [facility] Last Admin: 05/04/22 10:42 Dose: Not Given Documented By: ALTAGRACIA Non-Admin Reason: Patient Refused Albuterol Sulfate 2.5 mg/ (Ipratropium [place] 0.5 mg) 0 mg INHALE Q3H PRN PRN Reason: sob Docusate Sodium (Docusate Sodium 100 Mg Capsule) 100 mg PO DAILY PRN PRN Reason: Constipation Furosemide (Furosemide 40 Mg Tablet) 40 mg PO BID@0900,1800 [facility]; Protocol Last Admin: 05/04/22 08:54 Dose: 40 mg Documented By: BRYNN Diltiazem HCl 125 mg/ Sodium (Chloride) 125 mls @ 0 mls/hr IVCONT .Q0M [facility]; Protocol Last Titration: 05/04/22 10:23 Dose: 10 mg/hr, 10 mls/hr Documented By: BRYNN Amiodarone HCl 900 mg/ Sodium (Chloride) 518 mls @ 34.533 mls/hr IVCONT .Q15H1M [facility]; Protocol Last Infusion: 05/04/22 14:00 Dose: 0 mg/min, 0 mls/hr Documented By: BRYNN Lisinopril (Lisinopril 10 Mg Tablet) 10 mg PO DAILY [facility]; Protocol Last Admin: 05/04/22 08:54 Dose: 10 mg Documented By: BRYNN Melatonin (Melatonin 3 Mg Tablet) 6 mg PO BEDTIME PRN PRN Reason: Insomnia Last Admin: 05/03/22 20:34 Dose: 6 mg Documented By: TAMARA Metoprolol Tartrate (Metoprolol Tartrate 12.5 Mg Halftab) 12.5 mg PO Q6H [facility]; Protocol Ondansetron HCl (Ondansetron Hcl 4 Mg/2 Ml Vial) 4 mg IVPUSH Q8H PRN PRN Reason: Nausea and Vomiting Pravastatin Sodium (Pravastatin Sodium 40 Mg Tablet) 40 mg PO BEDTIME [facility] Last Admin: 05/03/22 20:34 Dose: 40 mg Documented By: TAMARA Prednisone (Prednisone 20 Mg Tablet) 40 mg PO DAILY [facility] Last Admin: 05/04/22 08:53 Dose: 40 mg Documented By: BRYNN Sodium Chloride (0.9 % Sodium Chloride Flush 3 Ml Syringe) [facility] Admin: 05/04/22 08:54 Dose: Not Given Documented By: BRYNN Non-Admin Reason: IV Running Spironolactone (Spironolactone 25 Mg Tablet) 12.5 mg PO DAILY [facility]; Protocol Last Admin: 05/04/22 08:53 Dose: 12.5 mg Documented By: BRYNN Tamsulosin HCl (Tamsulosin Hcl 0.4 Mg Capsule) 0.4 mg PO DAILY@1630 [facility] Last Admin: 05/03/22 17:36 Dose: 0.4 mg Documented By: BRYNN Arana 05/03/22 07:57 05/03/22 07:57 Assessment and Plan (1) Congestive heart failure: Status: Acute (2) Hypoxemia: Status: Acute (3) COPD with exacerbation: Status: Acute (4) Morbid obesity: Status: Acute Plan 72-year-old male with a PMH significant for COPD, CHF, BPH, and HLD who presents to the ED with?worsening shortness of breath. Pt will be admitted to the hospital for treatment and evaluation of CHF and COPD exacerbations. New onset of AFIB with RVR--HR continues to be variable on amio, iv cardizem which was stopped overnight and restarted this morning, starting oral metoprolol 12.5 q6, oral digoxin. Stopping amio since will not be able to anticoagulate due to signficant epixstasis Epistaxis--No further bleeding overnight and packing removed. Acute diastolic CHF exacerbation--clinically responsing to diuresis but compli cated by intermittent low BPs continue oral lasix 40 bid, continue lisinopril and aldacton so long as SPB > 100 Acute on Chronic hypoxic respiratory d/t copd with acute exacerbation continue Prednisone Bronchodilators Titrate supplemental O2 for O2 sat>88 to 93 Suspected recent viral illness--resolved Iron-deficiency anemia, chronic and stable, no indication for transfusion at this time Leukocytosis--reactive d/t steroid BPH Continue tamsulosin modbid obesity: Encouraged to lose weight. Deconditioning, PT eval DNR/DNI DVT Prophylaxis: holding Lovenox to nose bleedin, compression device Need for hospitaliazation new AFIB with RVR needing IV meds for control and need for continuous cardiac monitoring and evaluation by cardiology Time Spent With Patient Time: Total time managing care of this patient today ____ minutes. Quality Stroke Does the patient have a stroke diagnosis?: No VTE Prior VTE?: No VTE Risk Level:: Medical - moderate - high VTE Device Contraindication: Treatment Not Indicated VTE Drug Contraindication: N/A - Med Ordered
[2022-05-04] MEDS: Metoprolol Tartrate 12.5 MG HALFTAB PO (14:37)
--- NOTE | 2022-05-04 15:17 | MHC.CM.PN ---
DP Home with resumption of MOW. Patient open to vna if MD orders. Patient will arrange for transportation home from friend Isaias. Patient not ready today per MD rounds.
--- NOTE | 2022-05-04 17:01 | PC.NURSE ---
Received report from Jong SERRATO that Amiodorone drip was infused and stopped , and that MD is aware about it
[2022-05-04] MEDS: 0.9 % Sodium Chloride Flush 3 ML SYRINGE IVFLUSH ×2 (17:04→20:48)
[2022-05-04] MEDS: Tamsulosin HCL 0.4 MG CAPSULE PO (17:04)
[2022-05-04] MEDS: Melatonin 3 MG TABLET 6 MG PO (20:46)
[2022-05-04] MEDS: Pravastatin Sodium 40 MG TABLET PO (20:46)
[2022-05-05] VITALS (11 sets, daily range): BP systolic 82–115; BP diastolic 52–74; PULSE 70–90; RESP 18–20; TEMP 36.1–37.2; O2SAT 80–100
[2022-05-05] MEDS: Amoxicillin/Potassium Clav 500 MG TABLET PO (00:08)
--- NOTE | 2022-05-05 08:11 | HO.PM.IMPN ---
Subjective Subjective Date of Service: 05/05/22 Interval History: follow up copd/chf interval history: remains in AFIB with controlled rate, off amio, cardizem drip at 5, no sob Review of Systems no sob, Physical Exam Vital Signs: Vital Signs: Last Vital Signs Temp 97.4 F 05/05/22 07:32 Pulse 77 05/05/22 07:32 Resp 18 05/05/22 07:32 BP 115/74 05/05/22 07:32 Pulse Ox 91 L 05/05/22 07:32 O2 Del Method 05/05/22 07:32 O2 Flow Rate 6 05/05/22 07:32 Oxygen Flow Rate 6 04/29/22 06:23 BMI result Body Mass Index 34.6 Const: Other: General: AO X 3, no acute distress HEENT: nose packed with rhinojet, no bleeding into mouth Resp: rales at basesl CVS: S1,S2, iregular iregualr GI: +BS, NT, no distention Skin: No rash Neuro: motor grossly intact Psych: appropriate affect Objective Data Active Medications Acetaminophen (Acetaminophen 325 Mg Tablet) 650 mg PO Q6H PRN PRN Reason: Pain, Mild (Pain Scale 1-3) Amoxicillin/Clavulanate Potassium (Amoxicillin/Potassium Clav 500 Mg Tablet) 500 mg PO Q12H [facility] Last Admin: 05/05/22 00:08 Dose: 500 mg Documented By: DUANE Aspirin (Aspirin 81 Mg Tab.Chew) 81 mg PO DAILY [facility] Last Admin: 05/05/22 07:42 Dose: Not Given Documented By: BRYNN Non-Admin Reason: Physician Held Med Albuterol Sulfate 2.5 mg/ (Ipratropium [place] 0.5 mg) 0 mg INHALE RQ4H WHILE AWAKE [facility] Last Admin: 05/04/22 18:49 Dose: 1 each Documented By: NIRMAL Albuterol Sulfate 2.5 mg/ (Ipratropium [place] 0.5 mg) 0 mg INHALE Q3H PRN PRN Reason: sob Docusate Sodium (Docusate Sodium 100 Mg Capsule) 100 mg PO DAILY PRN PRN Reason: Constipation Furosemide (Furosemide 40 Mg Tablet) 40 mg PO BID@0900,1800 [facility]; Protocol Last Admin: 05/04/22 18:20 Dose: Not Given Documented By: HO.JEYSON Non-Admin Reason: Physician Held Med Diltiazem HCl 125 mg/ Sodium (Chloride) 125 mls @ 0 mls/hr IVCONT .Q0M [facility]; Protocol Last Admin: 05/04/22 23:56 Dose: 5 mg/hr, 5 mls/hr Documented By: DUANE Lisinopril (Lisinopril 10 Mg Tablet) 10 mg PO DAILY [facility]; Protocol Last Admin: 05/04/22 08:54 Dose: 10 mg Documented By: BRYNN Melatonin (Melatonin 3 Mg Tablet) 6 mg PO BEDTIME PRN PRN Reason: Insomnia Last Admin: 05/04/22 20:46 Dose: 6 mg Documented By: DUANE Metoprolol Tartrate (Metoprolol Tartrate 25 Mg Tablet) 25 mg PO BID [facility]; Protocol Ondansetron HCl (Ondansetron Hcl 4 Mg/2 Ml Vial) 4 mg IVPUSH Q8H PRN PRN Reason: Nausea and Vomiting Pravastatin Sodium (Pravastatin Sodium 40 Mg Tablet) 40 mg PO BEDTIME [facility] Last Admin: 05/04/22 20:46 Dose: 40 mg Documented By: DUANE Prednisone (Prednisone 20 Mg Tablet) 40 mg PO DAILY [facility] Last Admin: 05/04/22 08:53 Dose: 40 mg Documented By: BRYNN Sodium Chloride (0.9 % Sodium Chloride Flush 3 Ml Syringe) 3 ml IVFLUSH QSHIFT [facility] Last Admin: 05/04/22 20:48 Dose: 3 ml Documented By: DUANE Spironolactone (Spironolactone 25 Mg Tablet) 12.5 mg PO DAILY [facility]; Protocol Last Admin: 05/04/22 08:53 Dose: 12.5 mg Documented By: BRYNN Tamsulosin HCl (Tamsulosin Hcl 0.4 Mg Capsule) 0.4 mg PO DAILY@1630 [facility] Last Admin: 05/04/22 17:04 Dose: 0.4 mg Documented By: NATY Arana 05/03/22 07:57 05/03/22 07:57 Assessment and Plan (1) Congestive heart failure: Status: Acute (2) Hypoxemia: Status: Acute (3) COPD with exacerbation: Status: Acute (4) Morbid obesity: Status: Acute Plan 72-year-old male with a PMH significant for COPD, CHF, BPH, and HLD who presents to the ED with?worsening shortness of breath. Pt will be admitted to the hospital for treatment and evaluation of CHF and COPD exacerbations. New onset of AFIB with RVR--HR , RVR resolved, off amio, continue cardizem drip, continue metoprolol and later dc cardizem drip. No anticoagulation d/t recent significant nose bled Epistaxis--No further bleeding overnight and packing removed. Acute diastolic CHF exacerbation--Lasix is been on hold d/t low BPs but will restart at lower dose so long as BP is ok Acute on Chronic hypoxic respiratory d/t copd with acute exacerbation continue Prednisone Bronchodilators Titrate supplemental O2 for O2 sat>88 to 93 Suspected recent viral illness--resolved Iron-deficiency anemia, chronic and stable, no indication for transfusion at this time Leukocytosis--reactive d/t steroid BPH Continue tamsulosin modbid obesity: Encouraged to lose weight. Deconditioning, PT eval DNR/DNI DVT Prophylaxis: holding Lovenox to nose bleedin, compression device Need for hospitaliazation new AFIB with RVR needing IV meds for control and need for continuous cardiac monitoring and evaluation by cardiology Time Spent With Patient Time: Total time managing care of this patient today ____ minutes. Quality Stroke Does the patient have a stroke diagnosis?: No VTE Prior VTE?: No VTE Risk Level:: Medical - moderate - high VTE Device Contraindication: Treatment Not Indicated VTE Drug Contraindication: N/A - Med Ordered
[2022-05-05] MEDS: Spironolactone 25 MG TABLET 12.5 MG PO (09:01)
[2022-05-05] MEDS: predniSONE 20 MG TABLET 40 MG PO (09:02)
[2022-05-05] MEDS: Metoprolol Tartrate 25 MG TABLET PO (09:02)
[2022-05-05] MEDS: lisinopriL 10 MG TABLET PO (09:03)
[2022-05-05] MEDS: Furosemide 40 MG TABLET PO (09:03)
--- NOTE | 2022-05-05 12:13 | PM.PNCARD ---
Subjective Subjective Date of Service: 05/05/22 Principal diagnosis: CHF as well as COPD exacerbation. Interval history: Patient is feeling better. Atrial flutter rate is better controlled. Denies any palpitations. Continues to have shortness of breath but says that after removal of his nose packing he feels a lot better. Review of Systems Constitutional: Reports no additional constitutional complaints Denies epistaxis Cardiovascular: Reports no additional cardiovascular complaints and Reports dyspnea on exertion Respiratory: Reports dyspnea on exertion Musculoskeletal: Reports no additional musculoskeletal complaints Physical Exam Vital Signs: Last Vital Signs Temp 97.8 F 05/05/22 11:13 Pulse 77 05/05/22 11:14 Resp 20 05/05/22 11:14 BP 82/52 L 05/05/22 11:13 Pulse Ox 100 05/05/22 11:13 O2 Del Method 05/05/22 11:13 O2 Flow Rate 7 05/05/22 11:13 Oxygen Flow Rate 6 04/29/22 06:23 BMI result Body Mass Index 34.6 Const General: cooperative, comfortable, alert and awake Nutritional Appearance: overweight Orientation/consciousness: patient oriented x3 Neck Neck: Yes trachea midline, Yes supple and Yes no JVD Resp Effort & Inspection: normal respiratory effort Auscultation: wheezes and diminished lung sounds Cardio Jugular venous distension: no JVD Rhythm: abnormal rhythm irregularly irregular Heart sounds: S1 normal heart sound present and S2 normal heart sound present Skin General skin exam: no rashes or lesions noted and ecchymosis Neuro General: patient oriented x3 Extrem General: Yes no clubbing, cyanosis or edema Objective Labs and Meds 05/03/22 07:57 05/03/22 07:57 Progress Note: A&P Assessment and plan (1) Atrial flutter with rapid ventricular response: Status: Acute Assessment and Plan: Atrial flutter with rapid ventricular response much improved rate control with control of his anxiety after removal of his nasal packing as well as current medical therapy. Further up titrate metoprolol to 25 mg q.6 hours. Taper and discontinue Cardizem therapy through the day. Out of bed to chair. If possible should consider initiation of oral anticoagulation therapy to reduce stroke risk although this needs to be balance again risk of recurrent epistaxis. Continue local measures for treatment of his epistaxis with he mitigation of his nasal passages with saline sprays as well as him to for in the room. Hopefully we can use oxygen mass rather than nasal cannula for his oxygen requirement as outpatient. (2) CHF exacerbation: Status: Acute Assessment and Plan: CHF exacerbation which appears improved, right sided mostly due to cor pulmonale. Continue low-dose diuretic therapy. CHF education to be provided. Continue management of COPD. Use pulmonary specific bronchodilators. Continue oxygen therapy. Will sign of the case at this point time. Thank you for allowing me to partake in his care Time Spent With Patient Time: Total time managing care of this patient today ____ minutes. Progress Note: Quality Stroke Does the patient have a stroke diagnosis?: No Procedures Date of Service Date of Service: 05/05/22
[2022-05-05] MEDS: Tamsulosin HCL 0.4 MG CAPSULE PO (15:49)
[2022-05-05] MEDS: 0.9 % Sodium Chloride 500 ML 100 ML IV (15:51)
--- NOTE | 2022-05-05 16:27 | PC.NURSE ---
pt's manual bp at 1113 was 82/52. pt was asymptomatic. MD contacted via [employer] and asked for close monitoring. repeat manual bp at 1210 was similar: 84/54. bp remained low at 1507, 84/52. pt remained asymptomatic. again contacted via [employer]. rn advised to hold diuretics and metoprolol. 500 mL bag of NS hung. will continue to monitor
[2022-05-05] MEDS: Melatonin 3 MG TABLET 6 MG PO (22:12)
[2022-05-05] MEDS: Pravastatin Sodium 40 MG TABLET PO (22:12)
[2022-05-05] MEDS: 0.9 % Sodium Chloride Flush 3 ML SYRINGE IVFLUSH (22:13)
[2022-05-06] VITALS (13 sets, daily range): BP systolic 93–120; BP diastolic 57–75; PULSE 73–93; RESP 16–20; TEMP 36.3–37.1; O2SAT 90–97
--- NOTE | 2022-05-06 09:11 | HO.PM.IMPN ---
Subjective Subjective Date of Service: 05/06/22 Interval History: follow up copd/chf interval history: remains in AFIB with controlled rate, off amio and cardizem, shortness of breath is better no nose bleed Physical Exam Vital Signs: Vital Signs: Last Vital Signs Temp 97.7 F 05/06/22 07:45 Pulse 93 05/06/22 07:47 Resp 18 05/06/22 07:47 BP 120/75 05/06/22 07:45 Pulse Ox 94 05/06/22 07:45 O2 Del Method 05/06/22 07:45 O2 Flow Rate 4 05/06/22 07:45 Oxygen Flow Rate 6 04/29/22 06:23 BMI result Body Mass Index 34.6 Const: Other: General: AO X 3, no acute distress HEENT: no bleeding Resp: rales at basesl CVS: S1,S2, iregular iregualr GI: +BS, NT, no distention Skin: No rash Neuro: motor grossly intact Psych: appropriate affect Objective Data Active Medications Acetaminophen (Acetaminophen 325 Mg Tablet) 650 mg PO Q6H PRN PRN Reason: Pain, Mild (Pain Scale 1-3) Aspirin (Aspirin 81 Mg Tab.Chew) 81 mg PO DAILY [facility] Last Admin: 05/05/22 07:42 Dose: Not Given Documented By: BRYNN Non-Admin Reason: Physician Held Med Albuterol Sulfate 2.5 mg/ (Ipratropium [place] 0.5 mg) 0 mg INHALE RQ4H WHILE AWAKE [facility] Last Admin: 05/06/22 07:47 Dose: 2.5 each Documented By: YISEL Albuterol Sulfate 2.5 mg/ (Ipratropium [place] 0.5 mg) 0 mg INHALE Q3H PRN PRN Reason: sob Docusate Sodium (Docusate Sodium 100 Mg Capsule) 100 mg PO DAILY PRN PRN Reason: Constipation Furosemide (Furosemide 40 Mg Tablet) 40 mg PO BID@0900,1800 [facility]; Protocol Last Admin: 05/05/22 16:26 Dose: Not Given Documented By: BRYNN Non-Admin Reason: Physician Held Med Melatonin (Melatonin 3 Mg Tablet) 6 mg PO BEDTIME PRN PRN Reason: Insomnia Last Admin: 05/05/22 22:12 Dose: 6 mg Documented By: DUANE Metoprolol Tartrate (Metoprolol Tartrate 25 Mg Tablet) 25 mg PO BID [facility]; Protocol Last Admin: 05/05/22 22:13 Dose: Not Given Documented By: DUANE Non-Admin Reason: Decreased Blood Pressure Ondansetron HCl (Ondansetron Hcl 4 Mg/2 Ml Vial) 4 mg IVPUSH Q8H PRN PRN Reason: Nausea and Vomiting Pravastatin Sodium (Pravastatin Sodium 40 Mg Tablet) 40 mg PO BEDTIME [facility] Last Admin: 05/05/22 22:12 Dose: 40 mg Documented By: DUANE Prednisone (Prednisone 20 Mg Tablet) 40 mg PO DAILY [facility] Last Admin: 05/05/22 09:02 Dose: 40 mg Documented By: BRYNN Sodium Chloride (0.9 % Sodium Chloride Flush 3 Ml Syringe) 3 ml IVFLUSH QSHIFT [facility] Last Admin: 05/05/22 22:13 Dose: 3 ml Documented By: DUANE Spironolactone (Spironolactone 25 Mg Tablet) 12.5 mg PO DAILY [facility]; Protocol Last Admin: 05/05/22 09:01 Dose: 12.5 mg Documented By: BRYNN Tamsulosin HCl (Tamsulosin Hcl 0.4 Mg Capsule) 0.4 mg PO DAILY@1630 [facility] Last Admin: 05/05/22 15:49 Dose: 0.4 mg Documented By: BRYNN Labs 05/03/22 07:57 05/03/22 07:57 Assessment and Plan (1) Congestive heart failure: Status: Acute (2) Hypoxemia: Status: Acute (3) COPD with exacerbation: Status: Acute (4) Morbid obesity: Status: Acute Plan 72-year-old male with a PMH significant for COPD, CHF, BPH, and HLD who presents to the ED with?worsening shortness of breath. Pt will be admitted to the hospital for treatment and evaluation of CHF and COPD exacerbations. New onset of AFIB with RVR--HR , RVR resolved, off amio and cardizem drip, continue metoprolol , no anticoagulation d/t recent severe nose bleed Epistaxis--No further bleeding Acute diastolic CHF exacerbation--Lasix is been on hold d/t low BPs but will restart at lower dose so long as BP is ok Acute on Chronic hypoxic respiratory d/t copd with acute exacerbation continue Prednisone Bronchodilators Titrate supplemental O2 for O2 sat 88 to 93 Suspected recent viral illness--resolved Iron-deficiency anemia, chronic and stable, no indication for transfusion at this time Leukocytosis--reactive d/t steroid BPH Continue tamsulosin modbid obesity: Encouraged to lose weight. Deconditioning, PT eval DNR/DNI DVT Prophylaxis:add heparin and watch for bleed, Need for hospitaliazation : still being monitored Time Spent With Patient Time: Total time managing care of this patient today ____ minutes. Quality Stroke Does the patient have a stroke diagnosis?: No VTE Prior VTE?: No VTE Risk Level:: Medical - moderate - high VTE Device Contraindication: Treatment Not Indicated VTE Drug Contraindication: N/A - Med Ordered
[2022-05-06] MEDS: 0.9 % Sodium Chloride Flush 3 ML SYRINGE IVFLUSH ×3 (09:38→20:27)
[2022-05-06] MEDS: predniSONE 20 MG TABLET 40 MG PO (09:39)
[2022-05-06] MEDS: Heparin Sodium,Porcine 5,000 UNIT/ML VIAL 5000 UNIT SUBCUT ×3 (09:39→23:47)
[2022-05-06] MEDS: Aspirin 81 MG TAB.CHEW PO (09:39)
[2022-05-06] MEDS: Spironolactone 25 MG TABLET 12.5 MG PO (09:39)
[2022-05-06] MEDS: Metoprolol Tartrate 25 MG TABLET PO ×2 (09:39→20:26)
[2022-05-06] MEDS: Furosemide 40 MG TABLET PO ×2 (09:39→18:08)
[2022-05-06] MEDS: Tamsulosin HCL 0.4 MG CAPSULE PO (16:03)
[2022-05-06] MEDS: Pravastatin Sodium 40 MG TABLET PO (20:26)
[2022-05-06] MEDS: Melatonin 3 MG TABLET 6 MG PO (23:47)
[2022-05-07] VITALS (8 sets, daily range): BP systolic 96–120; BP diastolic 52–72; PULSE 74–109; RESP 18–20; TEMP 36.3–37.1; O2SAT 89–98
[2022-05-07] MEDS: Spironolactone 25 MG TABLET 12.5 MG PO (08:38)
[2022-05-07] MEDS: predniSONE 20 MG TABLET PO (08:40)
[2022-05-07] MEDS: Aspirin 81 MG TAB.CHEW PO (08:40)
[2022-05-07] MEDS: Furosemide 40 MG TABLET PO (08:40)
[2022-05-07] MEDS: Metoprolol Tartrate 25 MG TABLET PO ×2 (08:41→20:06)
[2022-05-07] MEDS: 0.9 % Sodium Chloride Flush 3 ML SYRINGE IVFLUSH ×3 (08:41→23:14)
[2022-05-07] MEDS: Heparin Sodium,Porcine 5,000 UNIT/ML VIAL 5000 UNIT SUBCUT (08:41)
--- NOTE | 2022-05-07 09:51 | HO.PM.IMPN ---
Subjective Subjective Date of Service: 05/07/22 Interval History: follow up copd/chf interval history: AFIB rate is controlled, very hypoxic using 8 liters but doesn't feel short of breath Review of Systems no sob, Physical Exam Vital Signs: Vital Signs: Last Vital Signs Temp 97.8 F 05/07/22 08:16 Pulse 79 05/07/22 08:16 Resp 20 05/07/22 08:16 BP 103/72 05/07/22 08:16 Pulse Ox 91 L 05/07/22 08:16 O2 Del Method 05/07/22 08:16 O2 Flow Rate 8 05/07/22 08:16 Oxygen Flow Rate 6 04/29/22 06:23 BMI result Body Mass Index 34.6 Const: Other: General: AO X 3, no acute distress HEENT: no bleeding Resp: rales at basesl CVS: S1,S2, iregular iregualr GI: +BS, NT, no distention Skin: No rash Neuro: motor grossly intact Psych: appropriate affect Objective Data Active Medications Acetaminophen (Acetaminophen 325 Mg Tablet) 650 mg PO Q6H PRN PRN Reason: Pain, Mild (Pain Scale 1-3) Aspirin (Aspirin 81 Mg Tab.Chew) 81 mg PO DAILY [facility] Last Admin: 05/07/22 08:40 Dose: 81 mg Documented By: DINH Docusate Sodium (Docusate Sodium 100 Mg Capsule) 100 mg PO DAILY PRN PRN Reason: Constipation Furosemide (Furosemide 40 Mg Tablet) 40 mg PO DAILY [facility]; Protocol Last Admin: 05/07/22 08:40 Dose: 40 mg Documented By: DINH Heparin Sodium (Porcine) (Heparin Sodium,Porcine 5,000 Unit/Ml Vial) 5,000 unit SUBCUT Q8H [facility] Last Admin: 05/07/22 08:41 Dose: 5,000 unit Documented By: DINH Melatonin (Melatonin 3 Mg Tablet) 6 mg PO BEDTIME PRN PRN Reason: Insomnia Last Admin: 05/06/22 23:47 Dose: 6 mg Documented By: ANTOIC Metoprolol Tartrate (Metoprolol Tartrate 25 Mg Tablet) 25 mg PO BID [facility]; Protocol Last Admin: 05/07/22 08:41 Dose: 25 mg Documented By: DINH Ondansetron HCl (Ondansetron Hcl 4 Mg/2 Ml Vial) 4 mg IVPUSH Q8H PRN PRN Reason: Nausea and Vomiting Pravastatin Sodium (Pravastatin Sodium 40 Mg Tablet) 40 mg PO BEDTIME [facility] Last Admin: 05/06/22 20:26 Dose: 40 mg Documented By: ANTOIC Prednisone (Prednisone 20 Mg Tablet) 20 mg PO DAILY [facility] Last Admin: 05/07/22 08:40 Dose: 20 mg Documented By: DINH Sodium Chloride (0.9 % Sodium Chloride Flush 3 Ml Syringe) 3 ml IVFLUSH QSHIFT [facility] Last Admin: 05/07/22 08:41 Dose: 3 ml Documented By: DINH Spironolactone (Spironolactone 25 Mg Tablet) 12.5 mg PO DAILY [facility]; Protocol Last Admin: 05/07/22 08:38 Dose: 12.5 mg Documented By: DINH Tamsulosin HCl (Tamsulosin Hcl 0.4 Mg Capsule) 0.4 mg PO DAILY@1630 [facility] Last Admin: 05/06/22 16:03 Dose: 0.4 mg Documented By: SCAR Labs 05/03/22 07:57 05/03/22 07:57 Assessment and Plan (1) Congestive heart failure: Status: Acute (2) Hypoxemia: Status: Acute (3) COPD with exacerbation: Status: Acute (4) Morbid obesity: Status: Acute Plan 72-year-old male with a PMH significant for COPD, CHF, BPH, and HLD who presents to the ED with?worsening shortness of breath. Pt will be admitted to the hospital for treatment and evaluation of CHF and COPD exacerbations. New onset of AFIB with RVR--HR , RVR resolved, off amio and cardizem drip, continue metoprolol , no anticoagulation d/t recent severe nose bleed Epistaxis--No further bleeding Acute diastolic CHF exacerbation--Lasix is been on hold d/t low BPs but will restart at lower dose so long as BP is ok Acute on Chronic hypoxic respiratory d/t copd with acute exacerbation continue Prednisone Bronchodilators Titrate supplemental O2 for O2 sat 88 to 93 Suspected recent viral illness--resolved Iron-deficiency anemia, chronic and stable, no indication for transfusion at this time Leukocytosis--reactive d/t steroid BPH Continue tamsulosin modbid obesity: Encouraged to lose weight. Deconditioning, PT eval DNR/DNI DVT Prophylaxis:add heparin and watch for bleed, Need for hospitaliazation : still being monitored Time Spent With Patient Time: Total time managing care of this patient today ____ minutes. Quality Stroke Does the patient have a stroke diagnosis?: No VTE Prior VTE?: No VTE Risk Level:: Medical - moderate - high VTE Device Contraindication: Treatment Not Indicated VTE Drug Contraindication: N/A - Med Ordered
--- NOTE | 2022-05-07 12:42 | PC.NURSE ---
Addendum entered by Peyton Maher RN 05/08/22 10:58: update on pt received from overnight RN, media sales representative per JUN. continue to titrate oxygen r/t o2 goal. Pt OOB to chair today, safety precautions taken - chair alarm on, camera in room, call smith within reach. Pt encouraged to call for assistance. Original Note: report received from overnight RN, media sales representative per JUN. During report pt was satting 100% on 9L pina cannula, titrated down to 8L at 0740, tolerated well. Titrating oxygen depending on pt tolerance. Currently on 6L pina cannula satting 87-91%. notified. Pt also noted to saturate better while sleeping. Once awake sats tend to drop, oxygen titrated r/t O2 goal of 88-93%. Call smith within reach, bed alarm on, camera in room, safety precautions in place.
--- NOTE | 2022-05-07 15:06 | MHC.CM.PN ---
PT rec Pulmonary rehab. The 2 Pulmonary rehab facilities in this area, do not accept the patients insurance. The patient wants to go home with services. He declines STR. DP HOMe w services. Patient will arrange for transport.
[2022-05-07] MEDS: Tamsulosin HCL 0.4 MG CAPSULE PO (15:39)
[2022-05-07] MEDS: Apixaban 5 MG TABLET PO (20:06)
[2022-05-07] MEDS: Pravastatin Sodium 40 MG TABLET PO (20:06)
[2022-05-07] MEDS: Melatonin 3 MG TABLET 6 MG PO (23:13)
[2022-05-08] VITALS (8 sets, daily range): BP systolic 99–109; BP diastolic 57–68; PULSE 74–80; RESP 18–22; TEMP 36.4–37.1; O2SAT 88–93; BMI 34.9
[2022-05-08] MEDS: Apixaban 5 MG TABLET PO ×2 (08:14→22:30)
[2022-05-08] MEDS: predniSONE 20 MG TABLET PO (08:14)
[2022-05-08] MEDS: Spironolactone 25 MG TABLET 12.5 MG PO (08:15)
[2022-05-08] MEDS: 0.9 % Sodium Chloride Flush 3 ML SYRINGE IVFLUSH ×3 (08:15→22:30)
[2022-05-08] MEDS: Furosemide 40 MG TABLET PO (08:15)
[2022-05-08] MEDS: Metoprolol Tartrate 25 MG TABLET PO ×2 (08:15→22:30)
[2022-05-08] MEDS: Aspirin 81 MG TAB.CHEW PO (08:15)
--- NOTE | 2022-05-08 12:08 | MHC.CM.PN ---
DP Home with [facility] [employer]. The patient will arrange for transport home.
--- NOTE | 2022-05-08 12:59 | P.PNIM_ITS ---
Subjective Subjective Date of Service: 05/08/22 Interval History: follow up copd/chf Review of Systems still feels sob with minimum excersion , denies any chest pain or abd pain or nausea/vomitin Physical Exam Vital Signs: Vital Signs: Last Vital Signs Temp 97.6 F 05/08/22 10:47 Pulse 75 05/08/22 10:47 Resp 20 05/08/22 10:47 BP 108/58 L 05/08/22 10:47 Pulse Ox 93 05/08/22 10:47 O2 Del Method 05/08/22 10:47 O2 Flow Rate 5 05/08/22 10:47 Oxygen Flow Rate 6 04/29/22 06:23 BMI result Body Mass Index 34.9 General: AO X 3, no acute distress HEENT: no bleeding Resp:? rales at basesl CVS: S1,S2, iregular iregualr GI: +BS, NT, no distention Skin: No rash Neuro:? motor grossly intact Psych: appropriate affect Objective Data Active Medications Acetaminophen (Acetaminophen 325 Mg Tablet) 650 mg PO Q6H PRN PRN Reason: Pain, Mild (Pain Scale 1-3) Apixaban (Apixaban 5 Mg Tablet) 5 mg PO BID [facility] Last Admin: 05/08/22 08:14 Dose: 5 mg Documented By: DINH Aspirin (Aspirin 81 Mg Tab.Chew) 81 mg PO DAILY [facility] Last Admin: 05/08/22 08:15 Dose: 81 mg Documented By: DINH Docusate Sodium (Docusate Sodium 100 Mg Capsule) 100 mg PO DAILY PRN PRN Reason: Constipation Furosemide (Furosemide 40 Mg Tablet) 40 mg PO DAILY [facility]; Protocol Last Admin: 05/08/22 08:15 Dose: 40 mg Documented By: DINH Melatonin (Melatonin 3 Mg Tablet) 6 mg PO BEDTIME PRN PRN Reason: Insomnia Last Admin: 05/07/22 23:13 Dose: 6 mg Documented By: CARMEN Metoprolol Tartrate (Metoprolol Tartrate 25 Mg Tablet) 25 mg PO BID [facility]; Protocol Last Admin: 05/08/22 08:15 Dose: 25 mg Documented By: DINH Ondansetron HCl (Ondansetron Hcl 4 Mg/2 Ml Vial) 4 mg IVPUSH Q8H PRN PRN Reason: Nausea and Vomiting Pravastatin Sodium (Pravastatin Sodium 40 Mg Tablet) 40 mg PO BEDTIME [facility] Last Admin: 05/07/22 20:06 Dose: 40 mg Documented By: CARMEN Prednisone (Prednisone 20 Mg Tablet) 20 mg PO DAILY [facility] Last Admin: 05/08/22 08:14 Dose: 20 mg Documented By: DINH Sodium Chloride (0.9 % Sodium Chloride Flush 3 Ml Syringe) 3 ml IVFLUSH QSHIFT [facility] Last Admin: 05/08/22 08:15 Dose: 3 ml Documented By: DINH Spironolactone (Spironolactone 25 Mg Tablet) 12.5 mg PO DAILY [facility]; Protocol Last Admin: 05/08/22 08:15 Dose: 12.5 mg Documented By: DINH Tamsulosin HCl (Tamsulosin Hcl 0.4 Mg Capsule) 0.4 mg PO DAILY@1630 [facility] Last Admin: 05/07/22 15:39 Dose: 0.4 mg Documented By: DINH Labs 05/03/22 07:57 05/03/22 07:57 Assessment and Plan (1) Congestive heart failure: Status: Acute (2) Hypoxemia: Status: Acute (3) COPD with exacerbation: Status: Acute (4) Morbid obesity: Status: Acute Plan 72-year-old male with a PMH significant for COPD, CHF, BPH, and HLD who presents to the ED with?worsening shortness of breath. Pt will be admitted to the hospital for treatment and evaluation of CHF and COPD exacerbations. New onset of AFIB with RVR--HR , RVR resolved, off amio and cardizem drip, continue metoprolol , no anticoagulation d/t recent severe nose bleed Epistaxis--No further bleeding Acute diastolic CHF exacerbation--Lasix is been on hold d/t low BPs but will restart at lower dose so long as BP is ok will added iv lasix Acute on Chronic hypoxic respiratory d/t copd with acute exacerbation continue Prednisone Bronchodilators Titrate supplemental O2 for O2 sat 88 to 93 Suspected recent viral illness--resolved Iron-deficiency anemia, chronic and stable, no indication for transfusion at this time Leukocytosis--reactive d/t steroid BPH Continue tamsulosin modbid obesity: Encouraged to lose weight. Deconditioning, PT eval DNR/DNI DVT Prophylaxis:add heparin and watch for bleed, Need for hospitaliazation : chf excerebation-need iv lasix ,i/o moniterin Time Spent With Patient Time: Total time managing care of this patient today ____ minutes. Quality Stroke Does the patient have a stroke diagnosis?: No VTE Prior VTE?: No VTE Risk Level:: Medical - moderate - high VTE Device Contraindication: Treatment Not Indicated VTE Drug Contraindication: N/A - Med Ordered
--- NOTE | 2022-05-08 13:02 | PM.CNPUL ---
History of Present Illness History of Present Illness Consult date: 05/08/22 Chief complaint: SOB Narrative: This is an inpatient pulmonary consultation. The patient is a 72-year-old male with a PMH significant for COPD, CHF, BPH, and HLD who presents to the ED with?worsening shortness of breath.? Patient states that he has had increasing SOB for the past couple months, especially worse in the past two weeks when he can no longer walk across the room without stopping to catch his breath.? Patient presents today after waking up this morning and feeling dizzy and being unable to walk.? Patient is on 3 L of O2 at home but states he feels he should be on a higher requirement but his current machine maxes out at 3L. In the ED pt was found to be hypoxic, desatting into the low 80s on RA. Labs were significant for no leukocytosis, H and H of 9.1/36.2 (at baseline), hyperbilirubinemia of 2.2, and elevated BNP of 1846. CXR showed mild cardiomegaly with mild CHF.? EKG showed normal sinus rhythm with nonspecific T-wave inversions. Pt was treated with furosemide and Solu-Medrol. Pt will be admitted to the hospital for treatment and evaluation of CHF and COPD exacerbations. The patient is doing better, but, still requiring 5L NC. Still have lower extremity edema. CXR with mild pulmonary vascular congestion. Clinically he is feeling better and will like to go home. Review of Systems Constitutional: Constitutional: Reports no additional constitutional complaints ENT: Denies epistaxis Cardiovascular: Cardiovascular: Reports no additional cardiovascular complaints and Reports dyspnea on exertion Respiratory: Respiratory: Reports dyspnea on exertion and Denies wheezing Gastrointestinal: Gastrointestinal: Reports no additional gastrointestinal complaints Musculoskeletal: Musculoskeletal: Reports no additional musculoskeletal complaints Neurologic: Reports system reviewed and no additional complaints, except as documented Hematologic/Lymphatic: Hematologic/Lymphatic: Denies easy bruising Allergic/Immunologic: Allergic/Immunologic: Denies wheezing PMFSH Past Medical History Medical History BPH (benign prostatic hyperplasia) COPD (chronic obstructive pulmonary disease) COPD (chronic obstructive pulmonary disease) HTN (hypertension) Hypoxemia Family History Family History Other CAD (coronary artery disease) Surgical History Surgical History H/O hernia repair Social History Social History Household Members: None Housing: Other Housing Other:: mobile home Do you presently have visiting nurse or other home services: Yes (cleaning lady, meals ([place] senior citizen)) Alcohol intake: current Alcohol intake frequency: holidays/special occasions only Patient Tobacco Use Status: Former Tobacco user Quit Date: 15 years ago service: No Current occupational status: retired and disabled Meds Allergies Allergy/AdvReac Type Severity Reaction Status Date / Time No Known Allergies Allergy Verified 03/01/21 10:26 Active Medications: Current Medications Acetaminophen (Acetaminophen 325 Mg Tablet) 650 mg PO Q6H PRN PRN Reason: Pain, Mild (Pain Scale 1-3) Apixaban (Apixaban 5 Mg Tablet) 5 mg PO BID [facility] Last Admin: 05/08/22 08:14 Dose: 5 mg Aspirin (Aspirin 81 Mg Tab.Chew) 81 mg PO DAILY [facility] Last Admin: 05/08/22 08:15 Dose: 81 mg Docusate Sodium (Docusate Sodium 100 Mg Capsule) 100 mg PO DAILY PRN PRN Reason: Constipation Furosemide (Furosemide 40 Mg Tablet) 40 mg PO DAILY [facility]; Protocol Last Admin: 05/08/22 08:15 Dose: 40 mg Furosemide (Furosemide 40 Mg/4 Ml Vial) 40 mg IVPUSH ONCE ONE; Protocol Stop: 05/08/22 12:59 Melatonin (Melatonin 3 Mg Tablet) 6 mg PO BEDTIME PRN PRN Reason: Insomnia Last Admin: 05/07/22 23:13 Dose: 6 mg Metoprolol Tartrate (Metoprolol Tartrate 25 Mg Tablet) 25 mg PO BID [facility]; Protocol Last Admin: 05/08/22 08:15 Dose: 25 mg Ondansetron HCl (Ondansetron Hcl 4 Mg/2 Ml Vial) 4 mg IVPUSH Q8H PRN PRN Reason: Nausea and Vomiting Pravastatin Sodium (Pravastatin Sodium 40 Mg Tablet) 40 mg PO BEDTIME [facility] Last Admin: 05/07/22 20:06 Dose: 40 mg Prednisone (Prednisone 20 Mg Tablet) 20 mg PO DAILY [facility] Last Admin: 05/08/22 08:14 Dose: 20 mg Sodium Chloride (0.9 % Sodium Chloride Flush 3 Ml Syringe) 3 ml IVFLUSH QSHIFT [facility] Last Admin: 05/08/22 08:15 Dose: 3 ml Spironolactone (Spironolactone 25 Mg Tablet) 12.5 mg PO DAILY [facility]; Protocol Last Admin: 05/08/22 08:15 Dose: 12.5 mg Tamsulosin HCl (Tamsulosin Hcl 0.4 Mg Capsule) 0.4 mg PO DAILY@1630 [facility] Last Admin: 05/07/22 15:39 Dose: 0.4 mg Home Medications Medication Instructions Recorded Confirmed Last Taken Type lisinopril 10 mg tablet 1 tab PO DAILY 06/08/20 04/29/22 04/28/22 09:00 History pravastatin 40 mg tablet 1 tab PO DAILY 06/08/20 04/29/22 04/28/22 09:00 History tamsulosin 0.4 mg capsule 1 cap PO DAILY 06/08/20 04/29/22 04/28/22 09:00 History aspirin 81 mg chewable tablet 1 tab PO DAILY 04/29/22 04/29/22 04/28/22 09:00 History fluticasone fur. 200 mcg-umeclid 1 puff inhalation DAILY 04/29/22 04/29/22 04/28/22 09:00 History 62.5 mcg-vilant 25 mcg inhalat.powder (Trelegy Ellipta) Physical Exam Vital Signs: Vital Signs: Last Vital Signs Temp 97.6 F 05/08/22 10:47 Pulse 75 05/08/22 10:47 Resp 20 05/08/22 10:47 BP 108/58 L 05/08/22 10:47 Pulse Ox 93 05/08/22 10:47 O2 Del Method 05/08/22 10:47 O2 Flow Rate 5 05/08/22 10:47 Oxygen Flow Rate 6 04/29/22 06:23 BMI result Body Mass Index 34.9 General: AO X 3, no acute distress HEENT: no bleeding Resp:? rales at basesl CVS: S1,S2, iregular iregualr +2 edema LE GI: +BS, NT, no distention Skin: No rash Neuro:? motor grossly intact Psych: appropriate affect Results Laboratory Findings 05/03/22 07:57 05/03/22 07:57 ABG, PT/INR, D-dimer: PT/INR, D-dimer PT 16.1 SEC (10.0-13.1) H 05/03/22 07:57 INR 1.4 (0.9-1.1) H 05/03/22 07:57 Abnormal lab findings: Abnormal Labs 04/29/22 04/29/22 04/29/22 06:48 06:48 06:48 WBC Hgb 9.1 L Hct 36.2 L MCV 69.2 L MCH 17.4 L MCHC 25.1 L RDW 24.4 H Immature Gran % (Auto) Neut % (Auto) 76.9 H Lymph % (Auto) 10.8 L Lymph # (Auto) 0.7 L Abs Immat Gran (auto) Absolute Neuts (auto) Absolute Nucleated RBC 0.090 H Nucleated RBC % (auto) 1.5 H PT 24.9 H INR 2.1 H VBG pH VBG HCO3 Anion Gap BUN 29 H Random Glucose Iron 19 L % Saturation 6 L Total Bilirubin 2.2 H AST 42 H ALT 68 H B-Natriuretic Peptide Total Protein 5.8 L Albumin 3.3 L 04/29/22 04/30/22 04/30/22 06:49 06:15 08:02 WBC Hgb Hct MCV MCH MCHC RDW Immature Gran % (Auto) Neut % (Auto) Lymph % (Auto) Lymph # (Auto) Abs Immat Gran (auto) Absolute Neuts (auto) Absolute Nucleated RBC Nucleated RBC % (auto) PT INR VBG pH 7.45 H VBG HCO3 28 H Anion Gap 11 L BUN 31 H Random Glucose 144 H Iron % Saturation Total Bilirubin AST ALT B-Natriuretic Peptide 1846 H Total Protein Albumin 05/01/22 05/01/22 05/01/22 05:22 05:22 05:22 WBC 17.3 H Hgb 9.0 L Hct 36.0 L MCV 68.6 L MCH 17.1 L MCHC 25.0 L RDW 23.9 H Immature Gran % (Auto) Neut % (Auto) Lymph % (Auto) Lymph # (Auto) Abs Immat Gran (auto) Absolute Neuts (auto) Absolute Nucleated RBC 0.140 H Nucleated RBC % (auto) 0.8 H PT INR VBG pH VBG HCO3 Anion Gap BUN 34 H Random Glucose 126 H Iron % Saturation Total Bilirubin AST ALT B-Natriuretic Peptide 1317 H Total Protein Albumin 05/03/22 05/03/22 05/03/22 07:57 07:57 07:57 WBC 15.6 H Hgb 9.2 L Hct 36.3 L MCV 69.8 L MCH 17.7 L MCHC 25.3 L RDW 24.2 H Immature Gran % (Auto) 0.9 H Neut % (Auto) 86.3 H Lymph % (Auto) 5.6 L Lymph # (Auto) 0.9 L Abs Immat Gran (auto) 0.14 H Absolute Neuts (auto) 13.5 H Absolute Nucleated RBC 0.230 H Nucleated RBC % (auto) 1.5 H PT 16.1 H INR 1.4 H VBG pH VBG HCO3 Anion Gap 11 L BUN 29 H Random Glucose Iron % Saturation Total Bilirubin AST ALT B-Natriuretic Peptide Total Protein Albumin Assessment and Plan (1) Acute and chronic respiratory failure: Qualifiers: Respiratory failure complication: hypoxia Qualified Code(s): J96.21 - Acute and chronic respiratory failure with hypoxia Status: Acute (2) CHF exacerbation: Qualifiers: Heart failure type: unspecified Qualified Code(s): I50.9 - Heart failure, unspecified Status: Acute (3) COPD (chronic obstructive pulmonary disease): Qualifiers: COPD type: emphysema Emphysema type: centrilobular Qualified Code(s): J43.2 - Centrilobular emphysema Status: Acute Plan Diuresis as tolerated. Additinal IV lasix now. continue rate control Start Spiriva titrate oxygen to maintain pox 90-96% Will need outpt pulmonary follow up Time Spent With Patient Time: Total time managing care of this patient today ____ minutes. Procedures Date of Service Date of Service: 04/26/22
[2022-05-08] MEDS: Furosemide 40 MG/4 ML VIAL IVPUSH (14:16)
[2022-05-08] MEDS: Tamsulosin HCL 0.4 MG CAPSULE PO (15:39)
[2022-05-08] MEDS: Pravastatin Sodium 40 MG TABLET PO (22:30)
[2022-05-08] MEDS: Melatonin 3 MG TABLET 6 MG PO (22:31)
[2022-05-09] VITALS (9 sets, daily range): BP systolic 93–111; BP diastolic 59–73; PULSE 73–86; RESP 18–20; TEMP 36.2–37.1; O2SAT 90–95
[2022-05-09 07:06] LABS: Anion Gap 10 (12-20); Blood Urea Nitrogen 23 mg/dL (9-16); Calcium 8.7 mg/dL (8.4-10.2); Carbon Dioxide 32 mmol/L (22-29); Chloride 99 mmol/L (96-108); Creatinine Clr Calc Pharmacy 77.2; Estimated Glomerular Filt Rate > 60; Glucose Random 82 mg/dL (60-115); Potassium 4.3 mmol/L (3.3-5.1); Sodium 137 mmol/L (135-145)
[2022-05-09] MEDS: Spironolactone 25 MG TABLET 12.5 MG PO (08:32)
[2022-05-09] MEDS: Metoprolol Tartrate 25 MG TABLET PO ×2 (08:32→22:30)
[2022-05-09] MEDS: predniSONE 20 MG TABLET PO (08:33)
[2022-05-09] MEDS: Apixaban 5 MG TABLET PO ×2 (08:33→22:30)
[2022-05-09] MEDS: 0.9 % Sodium Chloride Flush 3 ML SYRINGE IVFLUSH ×3 (08:33→22:31)
[2022-05-09] MEDS: Furosemide 20 MG/2 ML VIAL IVPUSH (10:32)
--- NOTE | 2022-05-09 10:53 | MHC.CM.PN ---
Per ROUNDS discussion, Patient is not yet medically cleared for dc; Home with new VNA is Patient's goal and CM will continue to follow.
--- NOTE | 2022-05-09 15:54 | HO.PM.IMPN ---
Subjective Subjective Date of Service: 05/09/22 Interval History: chf excerebation Review of Systems still feels sob with minimum excersion , denies any chest pain or abd pain or nausea/vomitin Physical Exam Vital Signs: Vital Signs: Last Vital Signs Temp 97.1 F 05/09/22 15:51 Pulse 77 05/09/22 15:51 Resp 18 05/09/22 15:51 BP 93/59 L 05/09/22 15:51 Pulse Ox 93 05/09/22 15:51 O2 Del Method 05/09/22 15:51 O2 Flow Rate 3 05/09/22 11:29 Oxygen Flow Rate 6 04/29/22 06:23 BMI result Body Mass Index 34.9 ?General: AO X 3, no acute distress HEENT: no bleeding Resp:? air entry fair ,few scattered rales at bases CVS: S1,S2, iregular iregualr GI: +BS, NT, no distention Skin: No rash Neuro:? motor grossly intact Psych: appropriate affect Objective Data Active Medications Acetaminophen (Acetaminophen 325 Mg Tablet) 650 mg PO Q6H PRN PRN Reason: Pain, Mild (Pain Scale 1-3) Apixaban (Apixaban 5 Mg Tablet) 5 mg PO BID [facility] Last Admin: 05/09/22 08:33 Dose: 5 mg Documented By: DILAN Aspirin (Aspirin 81 Mg Tab.Chew) 81 mg PO DAILY [facility] Last Admin: 05/08/22 08:15 Dose: 81 mg Documented By: DINH Docusate Sodium (Docusate Sodium 100 Mg Capsule) 100 mg PO DAILY PRN PRN Reason: Constipation Furosemide (Furosemide 40 Mg Tablet) 40 mg PO DAILY [facility]; Protocol Last Admin: 05/08/22 08:15 Dose: 40 mg Documented By: DINH Melatonin (Melatonin 3 Mg Tablet) 6 mg PO BEDTIME PRN PRN Reason: Insomnia Last Admin: 05/08/22 22:31 Dose: 6 mg Documented By: CARMEN Metoprolol Tartrate (Metoprolol Tartrate 25 Mg Tablet) 25 mg PO BID [facility]; Protocol Last Admin: 05/09/22 08:32 Dose: 25 mg Documented By: DILAN Ondansetron HCl (Ondansetron Hcl 4 Mg/2 Ml Vial) 4 mg IVPUSH Q8H PRN PRN Reason: Nausea and Vomiting Pravastatin Sodium (Pravastatin Sodium 40 Mg Tablet) 40 mg PO BEDTIME [facility] Last Admin: 05/08/22 22:30 Dose: 40 mg Documented By: CARMEN Prednisone (Prednisone 20 Mg Tablet) 20 mg PO DAILY [facility] Last Admin: 05/09/22 08:33 Dose: 20 mg Documented By: DILAN Sodium Chloride (0.9 % Sodium Chloride Flush 3 Ml Syringe) 3 ml IVFLUSH QSHIFT [facility] Last Admin: 05/09/22 08:33 Dose: 3 ml Documented By: DILAN Spironolactone (Spironolactone 25 Mg Tablet) 12.5 mg PO DAILY [facility]; Protocol Last Admin: 05/09/22 08:32 Dose: 12.5 mg Documented By: DILAN Tamsulosin HCl (Tamsulosin Hcl 0.4 Mg Capsule) 0.4 mg PO DAILY@1630 [facility] Last Admin: 05/08/22 15:39 Dose: 0.4 mg Documented By: FOGARTNeeta Tiotropium [place] (Tiotropium [place] 18 Mcg Cap.W.Dev) 1 puff INHALE RDAILY [facility] Last Admin: 05/09/22 07:47 Dose: 1 puff Documented By: BRESNE Labs 05/03/22 07:57 05/09/22 06:43 Labs: Laboratory Results - last 24 hr 05/09/22 06:43 Anion Gap 10 L Estim Creat Clear Calc 77.2 Estimated GFR > 60 Random Glucose 82 Calcium 8.7 Assessment and Plan (1) Congestive heart failure: Status: Acute (2) Hypoxemia: Status: Acute (3) COPD with exacerbation: Status: Acute (4) Morbid obesity: Status: Acute Plan 72-year-old male with a PMH significant for COPD, CHF, BPH, and HLD who presents to the ED with?worsening shortness of breath. Pt will be admitted to the hospital for treatment and evaluation of CHF and COPD exacerbations. New onset of AFIB with RVR--HR , RVR resolved, off amio and cardizem drip, continue metoprolol , no anticoagulation d/t recent severe nose bleed Epistaxis--No further bleeding Acute diastolic CHF exacerbation- will added iv lasix i/o neg 4 liters Acute on Chronic hypoxic respiratory d/t copd with acute exacerbation continue Prednisone Bronchodilators Titrate supplemental O2 for O2 sat 88 to 93 Suspected recent viral illness--resolved Iron-deficiency anemia, chronic and stable, no indication for transfusion at this time Leukocytosis--reactive d/t steroid BPH Continue tamsulosin modbid obesity: Encouraged to lose weight. Deconditioning, PT eval DNR/DNI DVT Prophylaxis:add heparin and watch for bleed, Pt eval-patient prefers to go home with PT. declines to go rehab. Need for hospitaliazation : chf excerebation-need iv lasix ,i/o moniterin Time Spent With Patient Time: Total time managing care of this patient today ____ minutes. Quality Stroke Does the patient have a stroke diagnosis?: No VTE Prior VTE?: No VTE Risk Level:: Medical - moderate - high VTE Device Contraindication: Treatment Not Indicated VTE Drug Contraindication: N/A - Med Ordered
[2022-05-09] MEDS: Tamsulosin HCL 0.4 MG CAPSULE PO (16:02)
[2022-05-09] MEDS: Pravastatin Sodium 40 MG TABLET PO (22:30)
[2022-05-09] MEDS: Melatonin 3 MG TABLET 6 MG PO (22:31)
[2022-05-10] VITALS (10 sets, daily range): BP systolic 92–108; BP diastolic 48–70; PULSE 72–158; RESP 16–20; TEMP 36.2–37.1; O2SAT 82–98
--- NOTE | 2022-05-10 08:47 | HO.PM.IMPN ---
Subjective Subjective Date of Service: 05/10/22 Interval History: chf excerebation Review of Systems still feels sob with minimum excersion , denies any chest pain or abd pain or nausea/vomitin Physical Exam Vital Signs: Vital Signs: Last Vital Signs Temp 98.1 F 05/10/22 07:53 Pulse 83 05/10/22 08:15 Resp 18 05/10/22 08:15 BP 101/70 05/10/22 07:53 Pulse Ox 94 05/10/22 07:53 O2 Del Method 05/10/22 07:53 O2 Flow Rate 3.5 05/10/22 07:53 Oxygen Flow Rate 6 04/29/22 06:23 BMI result Body Mass Index 34.9 General: AO X 3, no acute distress HEENT: no bleeding Resp:? air entry fair ,few scattered rales at bases CVS: S1,S2, iregular iregualr GI: +BS, NT, no distention Skin: No rash Neuro:? motor grossly intact Psych: appropriate affect Objective Data Active Medications Acetaminophen (Acetaminophen 325 Mg Tablet) 650 mg PO Q6H PRN PRN Reason: Pain, Mild (Pain Scale 1-3) Apixaban (Apixaban 5 Mg Tablet) 5 mg PO BID [facility] Last Admin: 05/09/22 22:30 Dose: 5 mg Documented By: DUANE Aspirin (Aspirin 81 Mg Tab.Chew) 81 mg PO DAILY [facility] Last Admin: 05/08/22 08:15 Dose: 81 mg Documented By: DINH Docusate Sodium (Docusate Sodium 100 Mg Capsule) 100 mg PO DAILY PRN PRN Reason: Constipation Furosemide (Furosemide 40 Mg Tablet) 40 mg PO DAILY [facility]; Protocol Last Admin: 05/08/22 08:15 Dose: 40 mg Documented By: DINH Melatonin (Melatonin 3 Mg Tablet) 6 mg PO BEDTIME PRN PRN Reason: Insomnia Last Admin: 05/09/22 22:31 Dose: 6 mg Documented By: DUANE Metoprolol Tartrate (Metoprolol Tartrate 25 Mg Tablet) 25 mg PO BID [facility]; Protocol Last Admin: 05/09/22 22:30 Dose: 25 mg Documented By: DUANE Ondansetron HCl (Ondansetron Hcl 4 Mg/2 Ml Vial) 4 mg IVPUSH Q8H PRN PRN Reason: Nausea and Vomiting Pravastatin Sodium (Pravastatin Sodium 40 Mg Tablet) 40 mg PO BEDTIME [facility] Last Admin: 05/09/22 22:30 Dose: 40 mg Documented By: DUANE Prednisone (Prednisone 20 Mg Tablet) 20 mg PO DAILY [facility] Last Admin: 05/09/22 08:33 Dose: 20 mg Documented By: DILAN Sodium Chloride (0.9 % Sodium Chloride Flush 3 Ml Syringe) 3 ml IVFLUSH QSHIFT [facility] Last Admin: 05/09/22 22:31 Dose: 3 ml Documented By: DUANE Spironolactone (Spironolactone 25 Mg Tablet) 12.5 mg PO DAILY [facility]; Protocol Last Admin: 05/09/22 08:32 Dose: 12.5 mg Documented By: DILAN Tamsulosin HCl (Tamsulosin Hcl 0.4 Mg Capsule) 0.4 mg PO DAILY@1630 [facility] Last Admin: 05/09/22 16:02 Dose: 0.4 mg Documented By: DILAN Tiotropium [place] (Tiotropium [place] 18 Mcg Cap.W.Dev) 1 puff INHALE RDAILY [facility] Last Admin: 05/10/22 08:14 Dose: 1 puff Documented By: ULRICGeronimo Labs 05/03/22 07:57 05/09/22 06:43 Assessment and Plan (1) Congestive heart failure: Status: Acute (2) Hypoxemia: Status: Acute (3) COPD with exacerbation: Status: Acute (4) Morbid obesity: Status: Acute Plan 72-year-old male with a PMH significant for COPD, CHF, BPH, and HLD who presents to the ED with?worsening shortness of breath. Pt will be admitted to the hospital for treatment and evaluation of CHF and COPD exacerbations. New onset of AFIB with RVR--HR , RVR resolved, off amio and cardizem drip, continue metoprolol , no anticoagulation d/t recent severe nose bleed Epistaxis--No further bleeding Acute diastolic CHF exacerbation- will added iv lasix i/o neg 4 liters Acute on Chronic hypoxic respiratory d/t copd with acute exacerbation continue Prednisone Bronchodilators Titrate supplemental O2 for O2 sat 88 to 93 Suspected recent viral illness--resolved Iron-deficiency anemia, chronic and stable, no indication for transfusion at this time Leukocytosis--reactive d/t steroid BPH Continue tamsulosin modbid obesity: Encouraged to lose weight. Deconditioning, PT eval DNR/DNI DVT Prophylaxis:add heparin and watch for bleed, Pt eval-patient prefers to go home with PT. declines to go rehab. Need for hospitaliazation : chf excerebation-need iv lasix ,i/o moniterin Time Spent With Patient Time: Total time managing care of this patient today ____ minutes. Quality Stroke Does the patient have a stroke diagnosis?: No VTE Prior VTE?: No VTE Risk Level:: Medical - moderate - high VTE Device Contraindication: Treatment Not Indicated VTE Drug Contraindication: N/A - Med Ordered
[2022-05-10] MEDS: Metoprolol Tartrate 25 MG TABLET PO ×2 (10:29→20:01)
[2022-05-10] MEDS: Spironolactone 25 MG TABLET 12.5 MG PO (10:29)
[2022-05-10] MEDS: 0.9 % Sodium Chloride Flush 3 ML SYRINGE IVFLUSH ×2 (10:29→16:26)
[2022-05-10] MEDS: Apixaban 5 MG TABLET PO ×2 (10:30→20:01)
[2022-05-10] MEDS: predniSONE 20 MG TABLET PO (10:30)
[2022-05-10] MEDS: Tamsulosin HCL 0.4 MG CAPSULE PO (16:26)
[2022-05-10] MEDS: Pravastatin Sodium 40 MG TABLET PO (20:01)
[2022-05-10] MEDS: Melatonin 3 MG TABLET 6 MG PO (22:28)
[2022-05-11] VITALS (11 sets, daily range): BP systolic 78–109; BP diastolic 56–75; PULSE 74–89; RESP 13–90; TEMP 36.2–36.7; O2SAT 90–97
[2022-05-11] MEDS: predniSONE 20 MG TABLET PO (08:32)
[2022-05-11] MEDS: 0.9 % Sodium Chloride Flush 3 ML SYRINGE IVFLUSH ×3 (08:32→20:53)
[2022-05-11] MEDS: Metoprolol Tartrate 25 MG TABLET PO (08:32)
[2022-05-11] MEDS: Apixaban 5 MG TABLET PO ×2 (08:32→20:53)
[2022-05-11] MEDS: Spironolactone 25 MG TABLET 12.5 MG PO (08:34)
[2022-05-11] MEDS: Furosemide 40 MG TABLET PO (12:09)
--- NOTE | 2022-05-11 13:16 | HO.PM.IMPN ---
Subjective Subjective Date of Service: 05/11/22 Interval History: chf excerebation Review of Systems still feels sob with minimum excersion seems similar to yesterday, denies any chest pain or abd pain or nausea/vomitin Physical Exam Vital Signs: Vital Signs: Last Vital Signs Temp 97.3 F 05/11/22 11:44 Pulse 80 05/11/22 11:44 Resp 13 05/11/22 11:44 BP 99/60 05/11/22 11:44 Pulse Ox 97 05/11/22 11:44 O2 Del Method 05/11/22 11:44 O2 Flow Rate 5 05/11/22 11:44 Oxygen Flow Rate 6 04/29/22 06:23 BMI result Body Mass Index 34.9 ?General: AO X 3, no acute distress HEENT: no bleeding Resp:? air entry fair ,no rales or wheezin CVS: S1,S2, iregular iregualr GI: +BS, NT, no distention Skin: No rash Neuro:? motor grossly intact Psych: appropriate affect Objective Data Active Medications Acetaminophen (Acetaminophen 325 Mg Tablet) 650 mg PO Q6H PRN PRN Reason: Pain, Mild (Pain Scale 1-3) Apixaban (Apixaban 5 Mg Tablet) 5 mg PO BID [facility] Last Admin: 05/11/22 08:32 Dose: 5 mg Documented By: CALLUM Aspirin (Aspirin 81 Mg Tab.Chew) 81 mg PO DAILY [facility] Last Admin: 05/08/22 08:15 Dose: 81 mg Documented By: DINH Docusate Sodium (Docusate Sodium 100 Mg Capsule) 100 mg PO DAILY PRN PRN Reason: Constipation Furosemide (Furosemide 40 Mg Tablet) 40 mg PO DAILY [facility]; Protocol Last Admin: 05/08/22 08:15 Dose: 40 mg Documented By: DINH Melatonin (Melatonin 3 Mg Tablet) 6 mg PO BEDTIME PRN PRN Reason: Insomnia Last Admin: 05/10/22 22:28 Dose: 6 mg Documented By: FAROOQ Metoprolol Tartrate (Metoprolol Tartrate 12.5 Mg Halftab) 12.5 mg PO BID [facility]; Protocol Ondansetron HCl (Ondansetron Hcl 4 Mg/2 Ml Vial) 4 mg IVPUSH Q8H PRN PRN Reason: Nausea and Vomiting Pravastatin Sodium (Pravastatin Sodium 40 Mg Tablet) 40 mg PO BEDTIME [facility] Last Admin: 05/10/22 20:01 Dose: 40 mg Documented By: FAROOQ Prednisone (Prednisone 20 Mg Tablet) 20 mg PO DAILY [facility] Last Admin: 05/11/22 08:32 Dose: 20 mg Documented By: CALLUM Sodium Chloride (0.9 % Sodium Chloride Flush 3 Ml Syringe) 3 ml IVFLUSH QSHIFT [facility] Last Admin: 05/11/22 12:10 Dose: 3 ml Documented By: CALLUM Spironolactone (Spironolactone 25 Mg Tablet) 12.5 mg PO DAILY [facility]; Protocol Last Admin: 05/11/22 08:34 Dose: 12.5 mg Documented By: CALLUM Tamsulosin HCl (Tamsulosin Hcl 0.4 Mg Capsule) 0.4 mg PO DAILY@1630 [facility] Last Admin: 05/10/22 16:26 Dose: 0.4 mg Documented By: SCAR Tiotropium [place] (Tiotropium [place] 18 Mcg Cap.W.Dev) 1 puff INHALE RDAILY [facility] Last Admin: 05/11/22 08:23 Dose: 1 puff Documented By: REILLK Labs 05/03/22 07:57 05/09/22 06:43 Assessment and Plan (1) Congestive heart failure: Status: Acute (2) Hypoxemia: Status: Acute (3) COPD with exacerbation: Status: Acute (4) Morbid obesity: Status: Acute Plan 72-year-old male with a PMH significant for COPD, CHF, BPH, and HLD who presents to the ED with?worsening shortness of breath. Pt will be admitted to the hospital for treatment and evaluation of CHF and COPD exacerbations. New onset of AFIB with RVR--HR , RVR resolved, off amio and cardizem drip, continue metoprolol , no anticoagulation d/t recent severe nose bleed Epistaxis--No further bleeding Acute diastolic CHF exacerbation- will added iv lasix i/o neg 4.5 liters Acute on Chronic hypoxic respiratory d/t copd with acute exacerbation continue Prednisone Bronchodilators Titrate supplemental O2 for O2 sat 88 to 93 still desats with walkin pulm follow up-oob ,walkin,moniter sats ,continue supportive management for chf/copd. Suspected recent viral illness--resolved Iron-deficiency anemia, chronic and stable, no indication for transfusion at this time Leukocytosis--reactive d/t steroid BPH Continue tamsulosin modbid obesity: Encouraged to lose weight. Deconditioning, PT eval-recomended rehab ,patient declines. DNR/DNI DVT Prophylaxis:add heparin and watch for bleed, Pt eval-patient prefers to go home with PT. declines to go rehab. Need for hospitaliazation : chf excerebation-need iv lasix ,i/o moniterin, desats Time Spent With Patient Time: Total time managing care of this patient today ____ minutes. Quality Stroke Does the patient have a stroke diagnosis?: No VTE Prior VTE?: No VTE Risk Level:: Medical - moderate - high VTE Device Contraindication: Treatment Not Indicated VTE Drug Contraindication: N/A - Med Ordered
[2022-05-11] MEDS: Tamsulosin HCL 0.4 MG CAPSULE PO (15:11)
--- NOTE | 2022-05-11 15:23 | MHC.CM.PN ---
DP Home with new VNA. Patient will arrange for transport home. Per MD rounds no DC today. Patient SPO2 decreases with activity rec 8-10L via [place]. Plan to wean O2 , to a resonable flow rate for home.
[2022-05-11] MEDS: Metoprolol Tartrate 12.5 MG HALFTAB PO (20:53)
[2022-05-11] MEDS: Pravastatin Sodium 40 MG TABLET PO (20:53)
[2022-05-11] MEDS: Melatonin 3 MG TABLET 6 MG PO (23:03)
[2022-05-12] VITALS (8 sets, daily range): BP systolic 89–109; BP diastolic 54–89; PULSE 68–115; RESP 14–20; TEMP 36.3–37.1; O2SAT 91–97
[2022-05-12] MEDS: Spironolactone 25 MG TABLET 12.5 MG PO (07:54)
[2022-05-12] MEDS: Apixaban 5 MG TABLET PO ×2 (07:54→22:51)
[2022-05-12] MEDS: Metoprolol Tartrate 12.5 MG HALFTAB PO ×2 (07:54→14:28)
[2022-05-12] MEDS: predniSONE 20 MG TABLET PO (07:54)
[2022-05-12] MEDS: 0.9 % Sodium Chloride Flush 3 ML SYRINGE IVFLUSH ×3 (07:54→22:58)
[2022-05-12 09:04] LABS: Anion Gap 13 (12-20); Blood Urea Nitrogen 20 mg/dL (9-16); Calcium 9.2 mg/dL (8.4-10.2); Carbon Dioxide 26 mmol/L (22-29); Chloride 102 mmol/L (96-108); Creatinine Clr Calc Pharmacy 81.6; Estimated Glomerular Filt Rate > 60; Glucose Random 92 mg/dL (60-115); Potassium 4.6 mmol/L (3.3-5.1); Sodium 136 mmol/L (135-145)
--- NOTE | 2022-05-12 12:04 | HO.PM.IMPN ---
Subjective Subjective Date of Service: 05/12/22 Interval History: chf excerebation Review of Systems still feels sob with minimum excersion seems similar to yesterday, denies any chest pain or abd pain or nausea/vomitin Physical Exam Vital Signs: Vital Signs: Last Vital Signs Temp 97.4 F 05/12/22 10:56 Pulse 80 05/12/22 10:56 Resp 14 05/12/22 10:56 BP 98/58 L 05/12/22 10:56 Pulse Ox 93 05/12/22 10:56 O2 Del Method 05/12/22 10:56 O2 Flow Rate 4 05/12/22 10:56 Oxygen Flow Rate 6 04/29/22 06:23 BMI result Body Mass Index 34.9 General: AO X 3, no acute distress HEENT: no bleeding Resp:? air entry fair ,no rales or wheezin CVS: S1,S2, iregular iregualr GI: +BS, NT, no distention Skin: No rash Neuro:? motor grossly intact Psych: appropriate affect Objective Data Active Medications Acetaminophen (Acetaminophen 325 Mg Tablet) 650 mg PO Q6H PRN PRN Reason: Pain, Mild (Pain Scale 1-3) Apixaban (Apixaban 5 Mg Tablet) 5 mg PO BID [facility] Last Admin: 05/12/22 07:54 Dose: 5 mg Documented By: DINH Aspirin (Aspirin 81 Mg Tab.Chew) 81 mg PO DAILY [facility] Last Admin: 05/08/22 08:15 Dose: 81 mg Documented By: DINH Docusate Sodium (Docusate Sodium 100 Mg Capsule) 100 mg PO DAILY PRN PRN Reason: Constipation Furosemide (Furosemide 40 Mg Tablet) 40 mg PO DAILY [facility]; Protocol Melatonin (Melatonin 3 Mg Tablet) 6 mg PO BEDTIME PRN PRN Reason: Insomnia Last Admin: 05/11/22 23:03 Dose: 6 mg Documented By: LARON Metoprolol Tartrate (Metoprolol Tartrate 12.5 Mg Halftab) 12.5 mg PO BID [facility]; Protocol Last Admin: 05/12/22 07:54 Dose: 12.5 mg Documented By: DINH Ondansetron HCl (Ondansetron Hcl 4 Mg/2 Ml Vial) 4 mg IVPUSH Q8H PRN PRN Reason: Nausea and Vomiting Pravastatin Sodium (Pravastatin Sodium 40 Mg Tablet) 40 mg PO BEDTIME [facility] Last Admin: 05/11/22 20:53 Dose: 40 mg Documented By: LARON Prednisone (Prednisone 20 Mg Tablet) 20 mg PO DAILY [facility] Last Admin: 05/12/22 07:54 Dose: 20 mg Documented By: DINH Sodium Chloride (0.9 % Sodium Chloride Flush 3 Ml Syringe) 3 ml IVFLUSH QSHIFT [facility] Last Admin: 05/12/22 07:54 Dose: 3 ml Documented By: DINH Spironolactone (Spironolactone 25 Mg Tablet) 12.5 mg PO DAILY [facility]; Protocol Last Admin: 05/12/22 07:54 Dose: 12.5 mg Documented By: DINH Tamsulosin HCl (Tamsulosin Hcl 0.4 Mg Capsule) 0.4 mg PO DAILY@1630 [facility] Last Admin: 05/11/22 15:11 Dose: 0.4 mg Documented By: CALLUM Tiotropium [place] (Tiotropium [place] 18 Mcg Cap.W.Dev) 1 puff INHALE RDAILY [facility] Last Admin: 05/12/22 07:49 Dose: 1 puff Documented By: BLASCL Labs 05/03/22 07:57 05/12/22 08:41 Labs: Laboratory Results - last 24 hr 05/12/22 08:41 Anion Gap 13 Estim Creat Clear Calc 81.6 Estimated GFR > 60 Random Glucose 92 Calcium 9.2 Assessment and Plan (1) Acute and chronic respiratory failure: Status: Acute (2) Atrial flutter with rapid ventricular response: Status: Acute (3) CHF exacerbation: Status: Acute Plan 72-year-old male with a PMH significant for COPD, CHF, BPH, and HLD who presents to the ED with?worsening shortness of breath. Pt will be admitted to the hospital for treatment and evaluation of CHF and COPD exacerbations. New onset of AFIB with? RVR--HR , RVR resolved, off amio and cardizem drip ( around 05/04/22) hr fluctuating in 100's range continue metoprolol no anticoagulation d/t recent severe nose bleed Epistaxis--No further bleeding Acute diastolic CHF exacerbation- will added iv lasix i/o neg 4.5 liters Acute on Chronic hypoxic respiratory d/t copd with acute exacerbation continue Prednisone Bronchodilators Titrate supplemental O2 for O2 sat 88 to 93 still desats with walkin pulm follow up-oob ,walkin,moniter sats ,continue supportive management for chf/copd. Suspected recent viral illness--resolved Iron-deficiency anemia, chronic and stable, no indication for transfusion at this time Leukocytosis--reactive d/t steroid BPH Continue tamsulosin modbid obesity:? Encouraged to lose weight. Deconditioning, PT eval-recomended rehab ,patient declines. DNR/DNI DVT Prophylaxis:add heparin and watch for bleed, Pt eval-patient prefers to go home with PT. declines to go rehab. Need for hospitaliazation : chf excerebation-need iv lasix ,i/o moniterin, desats with minimal excersion -respiratory /cardiac status not optimal yet, will add home oxygen eval in am. Time Spent With Patient Time: Total time managing care of this patient today ____ minutes. Quality Stroke Does the patient have a stroke diagnosis?: No VTE Prior VTE?: No VTE Risk Level:: Medical - moderate - high VTE Device Contraindication: Treatment Not Indicated VTE Drug Contraindication: N/A - Med Ordered
--- NOTE | 2022-05-12 12:06 | P.PNPL_ITS ---
Subjective Subjective Date of Service: 05/12/22 Principal diagnosis: CHF as well as COPD exacerbation. Interval history: The patient was seen on exam. He is comfortably sitting on nasal cannula 4 L maintaining pulse ox of 92%. His baseline oxygen at home is 3.5-4 L. he did have a chest x-ray from yesterday which I personally reviewed. Appears to show some improvement of the vascular congestion. Still has chronic interstitial changes and also has known extensive emphysema based on his previous CT scan. Therefore, with the extensive emphysema and decreased pulmonary reserve minimal heart failure will resulting worsening respiratory failure. Does white aggressive diuresis is crucial. In the meantime the patient is feeling well would like to go home. He should be able to go home as long as he tolerates a reasonable amount of oxygen supplementation with activity. Objective Data Labs 05/03/22 07:57 05/12/22 08:41 Labs: Laboratory Results - last 24 hr 05/12/22 08:41 Sodium 136 Potassium 4.6 Chloride 102 Carbon Dioxide 26 Anion Gap 13 BUN 20 H Creatinine 0.87 Estim Creat Clear Calc 81.6 Estimated GFR > 60 Random Glucose 92 Calcium 9.2 Review of Systems Constitutional: Reports no additional constitutional complaints Denies epistaxis Cardiovascular: Reports no additional cardiovascular complaints and Reports dyspnea on exertion Respiratory: Reports dyspnea on exertion and Denies wheezing Gastrointestinal: Reports no additional gastrointestinal complaints Musculoskeletal: Reports no additional musculoskeletal complaints Reports system reviewed and no additional complaints, except as documented Hematologic/Lymphatic: Denies easy bruising Allergic/Immunologic: Denies wheezing Physical Exam 2 Vital Signs: Vital Signs: Last Vital Signs Temp 97.4 F 05/12/22 10:56 Pulse 80 05/12/22 10:56 Resp 14 05/12/22 10:56 BP 98/58 L 05/12/22 10:56 Pulse Ox 93 05/12/22 10:56 O2 Del Method 05/12/22 10:56 O2 Flow Rate 4 05/12/22 10:56 Oxygen Flow Rate 6 04/29/22 06:23 BMI result Body Mass Index 34.9 General: AO X 3, no acute distress HEENT: no bleeding Resp:? dimished CVS: S1,S2, iregular iregualr +2 edema LE GI: +BS, NT, no distention Skin: No rash Neuro:? motor grossly intact Psych: appropriate affect Procedures Date of Service Date of Service: 05/12/22 Assessment and Plan Assessment and plan (1) CHF exacerbation: Status: Acute (2) COPD with exacerbation: Status: Acute (3) Acute and chronic respiratory failure: Status: Acute Plan The patient has advanced COPD with extensive emphysema in addition to having the congestive heart failure in the atrial flutter. All these conditions are resulting worsening respiratory failure. The patient clinically is feeling better and he is requesting to go home. The biggest limitation has been his desaturation with activity. Otherwise is patient is not able to go home safely due to his oxygen requirements, inpt rehabilitation will be most beneficial. Continue diuresis as tolerated continue Spiriva Start Breo 200 Continue oxygen 4 L at rest to maintain a pulse ox above 92%. Would also recommend using an Oxymizer pendant with activity in order to continue the L flow more than 6 L. If the patient is able to ambulate with the Oxymizer pendant in keeping his Liter flow below 6 L he should be able to go home safely. He will need to follow-up closely with Pulmonary. The patient will need outpatient pulmonary follow-up Time Spent With Patient Time: Total time managing care of this patient today _25___ minutes. Progress Note: Quality Stroke Does the patient have a stroke diagnosis?: No
[2022-05-12] MEDS: Tamsulosin HCL 0.4 MG CAPSULE PO (15:27)
[2022-05-12] MEDS: Furosemide 40 MG TABLET PO (15:27)
--- NOTE | 2022-05-12 16:51 | PC.NURSE ---
MADELINE SHEEHAN'S PHONE NUMBER:
[2022-05-12] MEDS: Melatonin 3 MG TABLET 6 MG PO (22:51)
[2022-05-12] MEDS: Pravastatin Sodium 40 MG TABLET PO (22:51)
[2022-05-13] VITALS (8 sets, daily range): BP systolic 92–118; BP diastolic 60–74; PULSE 78–107; RESP 12–19; TEMP 36.3–37.1; O2SAT 87–97
[2022-05-13] MEDS: Metoprolol Tartrate 12.5 MG HALFTAB PO (03:49)
[2022-05-13] MEDS: Furosemide 40 MG TABLET PO (08:11)
[2022-05-13] MEDS: Spironolactone 25 MG TABLET 12.5 MG PO (08:11)
[2022-05-13] MEDS: predniSONE 20 MG TABLET PO (08:11)
[2022-05-13] MEDS: Metoprolol Tartrate 25 MG TABLET PO ×2 (08:11→20:10)
[2022-05-13] MEDS: Apixaban 5 MG TABLET PO ×2 (08:11→20:11)
[2022-05-13] MEDS: 0.9 % Sodium Chloride Flush 3 ML SYRINGE IVFLUSH ×2 (08:13→16:23)
--- NOTE | 2022-05-13 13:06 | PM.PSYCN ---
History of Present Illness Date of Service: t Chief Complaint: SOB Reason for Consult: Assessment of capacity to take informed decision Requesting physician: Moraima Bartlett Sources of Information: patient interviewed, chart reviewed and crisis/core team assessment reviewed HPI Narrative: The patient is a 72-year-old male with a long history of COPD admitted for COPD exacerbation. The consult was made in the context of the patient was uncooperative, with poor safety awareness and able to understand discharge planning. According to the primary team, the patient was being unable to walk by himself to the bathroom without oxygen supplementation and he was uncooperative wanted to be discharged. No insight into his limitations due to his medical problems. On interview the patient admitted that he has COPD and he is willing to follow treatment. He understood partially his condition his limitations. He is fully aware that if he has not treated his condition could deteriorate to the point that he can diet. Even though, the patient was unable to fully understand the need of respiratory rehabilitation. There was no evidence of psychosis, roel or any other safety concerns. Past Psychiatric History: Denies Medical Evaluation Reviewed: Yes [facility] Medical History BPH (benign prostatic hyperplasia) COPD (chronic obstructive pulmonary disease) COPD (chronic obstructive pulmonary disease) HTN (hypertension) Hypoxemia Surgical History H/O hernia repair Diagnostics Vital Signs (24Hr): Vital Signs - 24 hr 05/12/22 15:23 05/12/22 19:26 05/12/22 22:58 Temperature 98.7 F 98.7 F 97.6 F Pulse Rate 83 73 77 Respiratory Rate 18 18 18 Blood Pressure 108/71 108/89 93/60 Pulse Oximetry 93 97 93 Oxygen Delivery Method Nasal Cannula Nasal Cannula Nasal Cannula Oxygen Flow Rate 4 4 4 05/13/22 03:50 05/13/22 07:55 05/13/22 11:19 Temperature 97.6 F 97.6 F 97.4 F Pulse Rate 82 78 78 Respiratory Rate 18 14 12 Blood Pressure 104/69 100/60 92/62 Pulse Oximetry 93 94 95 Oxygen Delivery Method Nasal Cannula Humidified O2 Humidified O2 Oxygen Flow Rate 4 4 4 BMI result Body Mass Index 34.9 Labs 05/03/22 07:57 05/12/22 08:41 Labs: Laboratory Results - last 48 hr 05/12/22 08:41 Sodium 136 Potassium 4.6 Chloride 102 Carbon Dioxide 26 Anion Gap 13 BUN 20 H Creatinine 0.87 Estim Creat Clear Calc 81.6 Estimated GFR > 60 Random Glucose 92 Calcium 9.2 Imaging Radiology Impressions: ITS Impressions Chest X-Ray 04/29/22 07:29 IMPRESSION: Mild cardiomegaly with mild CHF. Chest X-Ray 05/11/22 11:50 IMPRESSION: Patchy bibasilar airspace opacities left greater than right which may reflect infection, aspiration or atelectasis. Indistinctness of the central pulmonary vasculature with increased interstitial opacities which may reflect superimposed edema, in the setting of a mildly enlarged cardiac silhouette. Mental Status Exam Mental Status Exam Patient Appearance: Appropriate Patient Orientation: Person, Place, Time and Situation Level of Consciousness: Awake and Appropriate Patient Behavior: Cooperative and Passive Mood Description: Withdrawn and Constricted Affect Description: Constricted Patient Cognition Impaired: No Ability to Follow Directions: Fair Speech Pattern: Clear Hallucinations: None Delusions: Not Present Thought Process: Linear and Slowed Thinking Thought Content: positive for [place] and positive for Circumstantial Judgement: Fair Judgement and Insight: Insight limited Medications Medications Current Medications Acetaminophen (Acetaminophen 325 Mg Tablet) 650 mg PO Q6H PRN PRN Reason: Pain, Mild (Pain Scale 1-3) Apixaban (Apixaban 5 Mg Tablet) 5 mg PO BID [facility] Last Admin: 05/13/22 08:11 Dose: 5 mg Aspirin (Aspirin 81 Mg Tab.Chew) 81 mg PO DAILY [facility] Last Admin: 05/08/22 08:15 Dose: 81 mg Docusate Sodium (Docusate Sodium 100 Mg Capsule) 100 mg PO DAILY PRN PRN Reason: Constipation Fluticasone/Vilanterol (Fluticasone/Vilanterol 200/25 Blst.W.Dev) 1 puff INHALE RDAILY [facility] Last Admin: 05/13/22 07:41 Dose: Not Given Furosemide (Furosemide 40 Mg Tablet) 40 mg PO DAILY [facility]; Protocol Last Admin: 05/13/22 08:11 Dose: 40 mg Melatonin (Melatonin 3 Mg Tablet) 6 mg PO BEDTIME PRN PRN Reason: Insomnia Last Admin: 05/12/22 22:51 Dose: 6 mg Metoprolol Tartrate (Metoprolol Tartrate 25 Mg Tablet) 25 mg PO BID [facility]; Protocol Last Admin: 05/13/22 08:11 Dose: 25 mg Ondansetron HCl (Ondansetron Hcl 4 Mg/2 Ml Vial) 4 mg IVPUSH Q8H PRN PRN Reason: Nausea and Vomiting Pravastatin Sodium (Pravastatin Sodium 40 Mg Tablet) 40 mg PO BEDTIME [facility] Last Admin: 05/12/22 22:51 Dose: 40 mg Prednisone (Prednisone 20 Mg Tablet) 20 mg PO DAILY [facility] Last Admin: 05/13/22 08:11 Dose: 20 mg Sodium Chloride (0.9 % Sodium Chloride Flush 3 Ml Syringe) 3 ml IVFLUSH QSHIFT [facility] Last Admin: 05/13/22 08:13 Dose: 3 ml Spironolactone (Spironolactone 25 Mg Tablet) 12.5 mg PO DAILY [facility]; Protocol Last Admin: 05/13/22 08:11 Dose: 12.5 mg Tamsulosin HCl (Tamsulosin Hcl 0.4 Mg Capsule) 0.4 mg PO DAILY@1630 [facility] Last Admin: 05/12/22 15:27 Dose: 0.4 mg Tiotropium [place] (Tiotropium [place] 18 Mcg Cap.W.Dev) 1 puff INHALE RDAILY [facility] Last Admin: 05/13/22 07:42 Dose: Not Given Allergies Allergies Allergy/AdvReac Type Severity Reaction Status Date / Time No Known Allergies Allergy Verified 03/01/21 10:26 Assessment & Plan Assessment & Plan (1) Acute and chronic respiratory failure: Qualifiers: Respiratory failure complication: hypoxia Qualified Code(s): J96.21 - Acute and chronic respiratory failure with hypoxia Status: Acute Code(s): J96.20 - Acute and chronic respiratory failure, unspecified whether with hypoxia or hypercapnia (2) Atrial flutter with rapid ventricular response: Status: Acute Code(s): I48.92 - Unspecified atrial flutter (3) CHF exacerbation: Qualifiers: Heart failure type: unspecified Qualified Code(s): I50.9 - Heart failure, unspecified Status: Acute Code(s): I50.9 - Heart failure, unspecified (4) Morbid obesity: Status: Acute Code(s): E66.01 - Morbid (severe) obesity due to excess calories (5) Congestive heart failure: Status: Acute Code(s): I50.9 - Heart failure, unspecified (6) COPD (chronic obstructive pulmonary disease): Qualifiers: COPD type: emphysema Emphysema type: centrilobular Qualified Code(s): J43.2 - Centrilobular emphysema Status: Acute Code(s): J44.9 - Chronic obstructive pulmonary disease, unspecified (7) Hypoxemia: Status: Acute Code(s): R09.02 - Hypoxemia Plan The patient is an elderly male with several comorbidities such as COPD, CHF, morbid obesity admitted for an acute COPD exacerbation with desaturation. The current consult was asked to assess the capacity to take informed decisions since the patient was uncooperative and unable to understand discharge planning such as respiratory rehabilitation. Plan 1. The patient is able to understand the consequence of being discharged before, he is fully aware that his condition could deteriorate and diet if he does not receive medical treatment. Even though, he is uncooperative with discharge planning and the possibility of rehabilitation for his respiratory problems. The patient has capacity to take informed decisions at this moment. 2. The case was discussed with his primary team who agreed with my assessment. Total time managing care of this patient today ___30_ minutes. Informed Consent: understands
--- NOTE | 2022-05-13 14:16 | HO.PM.IMPN ---
Subjective Subjective Date of Service: 05/14/22 Interval History: advanced copd,chf Review of Systems seems euvolemic no fevers could able to tolerate walking but need at least 8 liter oxygen via oximiser and 5-6 liter at rest askin to go home Physical Exam Vital Signs: Vital Signs: Last Vital Signs Temp 97.4 F 05/13/22 11:19 Pulse 78 05/13/22 11:19 Resp 12 05/13/22 11:19 BP 92/62 05/13/22 11:19 Pulse Ox 95 05/13/22 11:19 O2 Del Method 05/13/22 11:19 O2 Flow Rate 4 05/13/22 11:19 Oxygen Flow Rate 6 04/29/22 06:23 BMI result Body Mass Index 34.9 General: AO X 3 HEENT: no bleeding Resp:? air entry fair ,no rales or wheezin CVS: S1,S2, iregular iregualr GI: +BS, NT, no distention Skin: No rash Neuro:? motor grossly intact Psych: appropriate affect Objective Data Active Medications Acetaminophen (Acetaminophen 325 Mg Tablet) 650 mg PO Q6H PRN PRN Reason: Pain, Mild (Pain Scale 1-3) Apixaban (Apixaban 5 Mg Tablet) 5 mg PO BID [facility]PLACED BY [facility] Last Admin: 05/13/22 08:11 Dose: 5 mg Documented By: DINH Aspirin (Aspirin 81 Mg Tab.Chew) 81 mg PO DAILY [facility]PL[facility] BY [facility] Last Admin: 05/08/22 08:15 Dose: 81 mg Documented By: DINH Docusate Sodium (Docusate Sodium 100 Mg Capsule) 100 mg PO DAILY PRN PRN Reason: Constipation Fluticasone/Vilanterol (Fluticasone/Vilanterol 200/25 Blst.W.Dev) 1 puff INHALE RDAILY REPLACED BY [facility] Last Admin: 05/13/22 07:41 Dose: Not Given Documented By: ALTAGRACIA Non-Admin Reason: Med Not Available Furosemide (Furosemide 40 Mg Tablet) 40 mg PO DAILY [facility]PLACED BY [facility]; Protocol Last Admin: 05/13/22 08:11 Dose: 40 mg Documented By: DINH Melatonin (Melatonin 3 Mg Tablet) 6 mg PO BEDTIME PRN PRN Reason: Insomnia Last Admin: 05/12/22 22:51 Dose: 6 mg Documented By: TREMAYNE Metoprolol Tartrate (Metoprolol Tartrate 25 Mg Tablet) 25 mg PO BID REPLACED BY [facility]; Protocol Last Admin: 05/13/22 08:11 Dose: 25 mg Documented By: DINH Ondansetron HCl (Ondansetron Hcl 4 Mg/2 Ml Vial) 4 mg IVPUSH Q8H PRN PRN Reason: Nausea and Vomiting Pravastatin Sodium (Pravastatin Sodium 40 Mg Tablet) 40 mg PO BEDTIME REPLACED BY [facility] Last Admin: 05/12/22 22:51 Dose: 40 mg Documented By: TREMAYNE Prednisone (Prednisone 20 Mg Tablet) 20 mg PO DAILY REPLACED BY [facility] Last Admin: 05/13/22 08:11 Dose: 20 mg Documented By: DINH Sodium Chloride (0.9 % Sodium Chloride Flush 3 Ml Syringe) 3 ml IVFLUSH QSHIFT REPLACED BY [facility] Last Admin: 05/13/22 08:13 Dose: 3 ml Documented By: DINH Spironolactone (Spironolactone 25 Mg Tablet) 12.5 mg PO DAILY REPLACED BY [facility]; Protocol Last Admin: 05/13/22 08:11 Dose: 12.5 mg Documented By: DINH Tamsulosin HCl (Tamsulosin Hcl 0.4 Mg Capsule) 0.4 mg PO DAILY@1630 REPLACED [facility] Last Admin: 05/12/22 15:27 Dose: 0.4 mg Documented By: DINH Tiotropium [place] (Tiotropium [place] 18 Mcg Cap.W.Dev) 1 puff INHALE RDAILY REPLACED BY [facility] Last Admin: 05/13/22 07:42 Dose: Not Given Documented By: ALTAGRACIA Non-Admin Reason: Med Not Available Labs 05/03/22 07:57 05/12/22 08:41 Assessment and Plan (1) Acute and chronic respiratory failure: Status: Acute (2) Atrial flutter with rapid ventricular response: Status: Acute Plan 72-year-old male with a PMH significant for COPD, CHF, BPH, and HLD who presents to the ED with?worsening shortness of breath. Pt will be admitted to the hospital for treatment and evaluation of CHF and COPD exacerbations. New onset of AFIB with? RVR--HR flactuating mostly 80-100 but increase with little excersion off amio and cardizem drip ( around 05/04/22) hr fluctuating in 100's range continue metoprolol ,bp softer , if continue to have elevated heart rate may need Cardiology follow-up . no anticoagulation d/t recent severe nose bleed Epistaxis--patient is on eliquis No further bleeding Acute diastolic CHF exacerbation- will added iv lasix i/o neg 4.5 liters Acute on Chronic hypoxic respiratory d/t copd with acute exacerbation continue Prednisone Bronchodilators Titrate supplemental O2 for O2 sat 88 to 93 still desats with walkin pulm follow up-oob ,walkin,moniter sats ,continue supportive management for chf/copd. Suspected recent viral illness--resolved Iron-deficiency anemia, chronic and stable, no indication for transfusion at this time Leukocytosis--reactive d/t steroid BPH Continue tamsulosin modbid obesity:? Encouraged to lose weight. Deconditioning, PT eval-recomended rehab ,patient declines. DNR/DNI DVT Prophylaxis:add heparin and watch for bleed, Pt eval-patient prefers to go home with PT. declines to go rehab. Need for hospitaliazation : chf excerebation-need iv lasix ,i/o moniterin, desats with minimal excersion -respiratory /cardiac status not optimal yet, will add home oxygen eval in am. Time Spent With Patient Time: Total time managing care of this patient today ____ minutes. Quality Stroke Does the patient have a stroke diagnosis?: No VTE Prior VTE?: No VTE Risk Level:: Medical - moderate - high VTE Device Contraindication: Treatment Not Indicated VTE Drug Contraindication: N/A - Med Ordered
[2022-05-13 15:29] LABS: Hematocrit 42.9 % (42.0-52.0); Hemoglobin 10.7 g/dl (14.0-18.0); Mean Corpuscular HGB Conc 24.9 g/dl (31.0-36.0); Mean Corpuscular Hemoglobin 17.9 pg (27.0-33.0); Mean Corpuscular Volume 71.9 fL (80.0-98.0); NRBC Pct Auto 0.3 /100WBC (0.0-0.2); Platelet Count 290 X10*3/uL (160-400); Red Blood Count 5.97 X10*6/uL (4.60-5.80); Red Cell Distribution Width 25.1 % (11.0-16.0); White Blood Count 15.4 X10*3/uL (4.8-10.8)
[2022-05-13 15:30] LABS: PLT ABN DIST 1
[2022-05-13] MEDS: Albuterol/Iprat 2.5/0.5MG 3 ML AMPUL.NEB INHALE ×2 (15:38→19:30)
[2022-05-13 15:59] LABS: ABG Base Excess 2.3 mmol/L; ABG HCO3 24 mmol/L (22-26); ABG pCO2 32 mmHg (32-45); ABG pH 7.49 (7.35-7.45); ABG pO2 63 mmHg (83-108)
[2022-05-13] MEDS: Tamsulosin HCL 0.4 MG CAPSULE PO (16:23)
[2022-05-13] MEDS: Furosemide 20 MG/2 ML VIAL IVPUSH (16:23)
[2022-05-13 17:49] LABS: ABG Refer to POC result
[2022-05-13] MEDS: Pravastatin Sodium 40 MG TABLET PO (20:10)
--- NOTE | 2022-05-13 21:57 | PC.NURSE ---
tachycardia 120-150 when using the urinal in the bed, oxygen saturation 86% on 4 L via NC , Heart rate back to 90's after 2-3 min and oxygen saturation up to 91 % . Pt denied any palpitation,no chest pain
[2022-05-13] MEDS: Melatonin 3 MG TABLET 6 MG PO (23:47)
[2022-05-14] VITALS (8 sets, daily range): BP systolic 91–119; BP diastolic 59–64; PULSE 76–158; RESP 15–20; TEMP 36.4–37.1; O2SAT 91–97
[2022-05-14] MEDS: 0.9 % Sodium Chloride Flush 3 ML SYRINGE IVFLUSH ×2 (01:10→08:10)
[2022-05-14] MEDS: Apixaban 5 MG TABLET PO (08:10)
[2022-05-14] MEDS: Furosemide 40 MG TABLET PO (08:10)
[2022-05-14] MEDS: Metoprolol Tartrate 25 MG TABLET PO (08:10)
[2022-05-14] MEDS: Spironolactone 25 MG TABLET 12.5 MG PO (08:11)
[2022-05-14] MEDS: predniSONE 20 MG TABLET PO (08:11)
[2022-05-14] MEDS: Albuterol/Iprat 2.5/0.5MG 3 ML AMPUL.NEB INHALE ×3 (08:56→15:53)
[2022-05-14] MEDS: Digoxin 0.25 MG TABLET 0.5 MG PO (13:53)
--- NOTE | 2022-05-14 15:45 | PM.PNCARD ---
Subjective Subjective Date of Service: 05/14/22 Principal diagnosis: CHF as well as COPD exacerbation. Interval history: Seen and examined at bedside. Denies any symptoms. Telemetry is showing atrial flutter with 2-1 block. Physical Exam Vital Signs: Last Vital Signs Temp 98.2 F 05/14/22 14:57 Pulse 158 H 05/14/22 14:57 Resp 20 05/14/22 14:57 BP 97/59 L 05/14/22 14:57 Pulse Ox 97 05/14/22 14:57 O2 Del Method 05/14/22 14:57 O2 Flow Rate 4 05/14/22 14:57 Oxygen Flow Rate 6 04/29/22 06:23 BMI result Body Mass Index 34.9 GENERAL APPEARANCE: in no acute distress, pleasant. On supplemental oxygen NECK: no carotid bruit, no jugular venous distention. SKIN: no suspicious lesions, warm and dry. HEART: no murmurs, regular rate and rhythm. Tachycardic. LUNGS: clear to auscultation bilaterally. ABDOMEN: soft, nontender. EXTREMITIES: no edema. PERIPHERAL PULSES: equal. NEUROLOGIC: No gross deficits, AAO X 3 Objective Labs and Meds 05/13/22 14:36 05/12/22 08:41 Lab results: Laboratory Results - last 24 hr 05/13/22 15:52 O2 Saturation 92.0 ABG pH at Pt Temp 7.49 H ABG pCO2 at Pt Temp 32 ABG pO2 at Pt Temp 63 L ABG HCO3 24 ABG Base Excess (Actual) 2.3 Progress Note: A&P Assessment and plan (1) Atrial flutter with rapid ventricular response: Status: Acute Plan [age] gentleman with atrial flutter. He is asymptomatic. Heart rates are in 150s. He is on beta-halie metoprolol 25 mg twice a day. Clinically not in heart failure right now and not feeling the atrial flutter. Give him digoxin load. Start him on 05/04 5 mcg of digoxin every other day along with beta-halie. Patient is adamant to leave and there is a good chance that he is going to leave against medical advice. He can see Dr. Boateng in the office after discharge. Thank you for allowing me to participate in the care of your patient. Please feel free to contact me if you have any questions. Time Spent With Patient Time: Total time managing care of this patient today ____ minutes. Progress Note: Quality Stroke Does the patient have a stroke diagnosis?: No Procedures Date of Service Date of Service: 05/14/22
--- NOTE | 2022-05-14 16:52 | PC.NURSE ---
report received from edie RN, bacteriologist medical per JUN. Pt left the hospital AMA accompanied by his son Isaias. Pt was extensively educated about the importance of remaining in the hospital for further treatment, also about his condition and the risks of leaving AMA. Pt is A+Ox4, a psych eval was also completed. The pt is competent to make his own decisions. The pt's son arrived at the hospital. Dhruv KELLY, blade SERRATO and Stacey MCCLENDON discussed with son and pt at the same time the situation. Pt is adamant about leaving. IV and tele monitor were removed, belongings were returned. AMA form signed by pt, blade SERRATO and Aurora SERRATO as a witness. Pt was sent home with two O2 tanks from [facility]. Pt was assisted with dressing and then accompanied down in a wheelchair by [employer] to maintain safety.
--- NOTE | 2022-05-14 17:19 | PM.DS ---
DS: Providers Provider Date of Service: 05/14/22 Date of admission: 04/29/22 11:45 Date of discharge: 05/14/22 Primary care physician: Altaf Campos MD Consults: 04/29/22 12:08 Consult to Cardiology Routine Consulting Provider: Jose Boateng Reason for consultation: CHF Has provider been notified: No 05/08/22 09:28 Consult to Pulmonology Routine Consulting Provider: [facility] Reason for consultation: acute on ch respiratory failure sec to copd Has provider been notified: No 05/13/22 07:35 Consult to Psychiatry Stat Consulting Provider: Psych Covering Reason for consultation: interferes with treatment/?capacity Has provider been notified: No Attending physician on discharge: Moraima Bartlett DS: Diagnosis Discharge Diagnosis (1) Acute and chronic respiratory failure: Status: Acute (2) Atrial flutter with rapid ventricular response: Status: Acute (3) CHF exacerbation: Status: Acute (4) Morbid obesity: Status: Acute DS: Summary Hospital Course Hospital Course: ?72-year-old male with a PMH significant for COPD, CHF, BPH, and HLD who presents to the ED with?worsening shortness of breath.? Patient states that he has had increasing SOB for the past couple months, especially worse in the past two weeks when he can no longer walk across the room without stopping to catch his breath.? Patient presents today after waking up this morning and feeling dizzy and being unable to walk.? Patient is on 3 L of O2 at home but states he feels he should be on a higher requirement but his current machine maxes out at 3L. Pt also notes he has recently experienced 3-4 days of sore throat, cough, diarrhea, and abdominal pain. Denies F/C, N/V. Feels much better today with no symptoms. Pt denies orthopnea, PND, chest pain/pressure. In the ED pt was found to be hypoxic, desatting into the low 80s on RA. Labs were significant for no leukocytosis, H and H of 9.1/36.2 (at baseline), hyperbilirubinemia of 2.2, and elevated BNP of 1846. CXR showed mild cardiomegaly with mild CHF.? EKG showed normal sinus rhythm with nonspecific T-wave inversions. Pt was treated with furosemide and Solu-Medrol. Pt will be admitted to the hospital for treatment and evaluation of CHF and COPD exacerbations. Hospital course: Patient was admitted for afib with rvr ,copd exacerbation, CHF exacerbation. advanced COPD exacerbation: Patient was treated with nebs, steroids, supportive you oxygen, still has high oxygen demand due to advanced COPD ( seen by Pulmonary recommended pulmonary rehab and also told to the patient that it is not advisable to go home if the oxygen demand is above 6 L with Oxymizer but patient does not want to stay and signed against medical advice.) Heart failure treated with IV Lasix, diuresis around 6 L negative, CHF seems to be near baseline. AFib with RVR was treated with IV amiodarone and Cardizem-heart rate is still uncontrolled. Patient feels comfortable at rest, but still has elevated heart rate in 150 range also. Patient was seen by Cardiology and recommended to add digoxin in addition to metoprolol patient was advised to stay for telemetry monitoring and heart rate management. Patient was strongly advised to stay since AFib with RVR, and high oxygen demand due to advanced COPD but patient decided to sign against medical advice-is alert oriented x3, staff witnessed the conversation in detail. Epistaxis-no new episode but patient aspirin and Eliquis was on hold, patient was did decide further use that also out patiently. Risk of leaving against the medical advice including worsening irregular heartbeat arrhythmia , and quick desaturation and hypoxia due increased oxygen demand and even in detail, he understand but still wants to leave. Patient's son was also present. Patient was also offered rehab earlier for pulmonary rehab - patient refused that also. Home oxygen arranged. Patient told if any palpitation chest pain or any shortness of breath or any new symptoms go to nearest emergency room for further evaluation. We have sent medications for all above conditions to patient pharmacy. Assessment and plan coordination time spent 70 minute. Patient understand in detail. Staff and his son was present during the conversation. Time Spent with Patient Time attestation: Total time managing care of this patient today ____ minutes. Discharge coordination time: Greater than 30 minutes Quality: Safe Use of Opioids Does Pt have an Active Cancer Diagnosis on the Problem List?: No Quality: Stroke Does the patient have a stroke diagnosis?: No Physical Exam Vital Signs: Vital Signs: Last Vital Signs Temp 98.2 F 05/14/22 14:57 Pulse 152 H 05/14/22 15:55 Resp 20 05/14/22 15:55 BP 97/59 L 05/14/22 14:57 Pulse Ox 97 05/14/22 14:57 O2 Del Method 05/14/22 14:57 O2 Flow Rate 4 05/14/22 14:57 Oxygen Flow Rate 6 04/29/22 06:23 BMI result Body Mass Index 34.9 ? refused exam upon discharge. DS: Data Data Completed and Pending Completed studies during hospitalization [Text1]: Procedures Transfusion of Nonautologous Red Blood Cells into Peripheral Vein, Percutaneous Approach (04/05/21) Imaging Chest x-ray: Radiologist's impression: ITS Impressions Chest X-Ray 04/29/22 07:29 IMPRESSION: Mild cardiomegaly with mild CHF. Chest X-Ray 05/11/22 11:50 IMPRESSION: Patchy bibasilar airspace opacities left greater than right which may reflect infection, aspiration or atelectasis. Indistinctness of the central pulmonary vasculature with increased interstitial opacities which may reflect superimposed edema, in the setting of a mildly enlarged cardiac silhouette. Chest X-Ray 05/13/22 12:49 IMPRESSION: Coarsened interstitial markings consistent with known emphysema. Right basilar markings suggest atelectasis, mild increase in the previous study. A developing infiltrate cannot be excluded. Short-term repeat radiographic graphic follow-up is recommended, preferably including a lateral view. Discharge Plan Discharge Anticipated Discharge Date/Time: 05/14/22 14:56 Patient Disposition: Left Against Medical Advice Discharge Diagnosis: afib with rvr ,advanced copd/emphsema , chf excerebation [facility] [Other] - 1 Week (Home care services [facility] [phone]) Altaf Campos MD [Primary Care Provider] - 1 Week Discharge Medications: New spironolactone 25 mg Tablet 12.5 mg PO DAILY Qty: 30 0RF Protocol: Hold for SBP< HOLD for SBP < : 90 Eliquis 5 mg Tablet 5 mg PO BID Qty: 60 0RF Spiriva with HandiHaler 18 mcg Capsule, W/Inhalation Device 18 mcg inhalation RDAILY Qty: 1 0RF furosemide 40 mg Tablet 40 mg PO DAILY Qty: 30 0RF Protocol: Hold for SBP< HOLD for SBP < : 90 fluticasone furoate-vilanterol [Breo Ellipta] 200-25 mcg/dose Blister With Device 1 ea inhalation RDAILY Qty: 60 0RF metoprolol tartrate 25 mg Tablet 25 mg PO BID Qty: 60 0RF Protocol: Hold for SBP/HR < HOLD for SBP < : 90 HOLD for HR < : 60 albuterol sulfate 90 mcg/actuation HFA aerosol inhaler 1 inh inhalation QID PRN (Reason: sob) Qty: 8.5 0RF digoxin 125 mcg (0.125 mg) tablet 125 mcg PO Q OTHER DAY Qty: 14 0RF docusate sodium 100 mg Capsule 100 mg PO DAILY PRN (Reason: Constipation) Qty: 30 0RF prednisone 20 mg Tablet 20 mg PO DAILY Qty: 3 0RF Continued pravastatin 40 mg tablet 1 tab PO DAILY tamsulosin 0.4 mg capsule 1 cap PO DAILY Trelegy Ellipta 200-62.5-25 mcg blister with device 1 puff INHALATION DAILY Held lisinopril 10 mg tablet 1 tab PO DAILY Hold Instructions: Resume on 06/13/22. hold until seen by pcp aspirin 81 mg tablet,chewable 1 tab PO DAILY Hold Instructions: Resume on 06/12/22. hold until seen by pcp Discharge Orders: Discharge Order (Routine); Ordered 05/14/22 Ordered By: Moraima Bartlett Diet: Advance to usual diet Activity on Discharge: As tolerated Stand Alone Forms: Patient Portal Discharge page Care Plan Goals: Patient was admitted for irregular rhythm, heart failure, advanced COPD exacerbation: Patient was treated with nebs, steroids, supportive you oxygen, also irregular heartbeat was treated with IV heart rate control medications-heart rate is still uncontrolled. Patient feels comfortable at rest, but still has elevated heart rate. Heart failure treated with IV Lasix seems to be near baseline. Patient was strongly advised to stay since elevated irregular heartbeat, and high oxygen demand due to advanced COPD but patient decided to sign against medical advice-is alert oriented x3, staff witnessed the conversation in detail. Risk of leaving against the medical advice including worsening irregular heartbeat arrhythmia and even in detail, he understand but still wants to leave. Patient's son was also present. Health Concerns: As above. Plan of Treatment: As above. Assessment: As above. Discharge Date/Time: 05/14/22 16:56
== END 2022-05-14 16:56 | disposition left against medical advice (07) | DRG 291 ==
LOC: HO.ED 08:18 → HO.EDOVER 11:58 → HO.S3 04-30 08:17 → HO.IMC 05-03 07:57
PROVIDERS: Internal Medicine; Student in an Organized Health Care Education/Training Program; Admitting Provider Student in an Organized Health Care Education/Training Program; Emergency Provider Emergency Medicine; PCP Internal Medicine; Visit Provider Internal Medicine
DX: I11.0 Hypertensive heart disease with heart failure (principal); I50.33 Acute on chronic diastolic (congestive) heart failure; J96.21 Acute and chronic respiratory failure with hypoxia; I48.92 Unspecified atrial flutter; N40.0 Benign prostatic hyperplasia without lower urinary tract symptoms; D50.9 Iron deficiency anemia, unspecified; Z66 Do not resuscitate; R04.0 Epistaxis; E66.01 Morbid (severe) obesity due to excess calories; J43.2 Centrilobular emphysema; Z68.36 Body mass index [BMI] 36.0-36.9, adult; E78.5 Hyperlipidemia, unspecified; I44.1 Atrioventricular block, second degree; Z20.822 Contact with and (suspected) exposure to COVID-19; Z23 Encounter for immunization; Z99.81 Dependence on supplemental oxygen; Z87.891 Personal history of nicotine dependence; Z79.82 Long term (current) use of aspirin; Z79.899 Other long term (current) drug therapy
CPT/HCPCS: 36415; 36600; 71045; 80048; 80053; 82803; 83540; 83735; 83880; 84484; 85025; 85027; 85610; 86850; 86900; 86901; 87635; 90686; 93005; 93306; 94640; 94664; 97116; 97162; 97530; 99285; J0282; J1160; J1643; J1650; J1940; J2930; Q9957

== ENCOUNTER → 2022-05-28 09:52 | Outpatient (BNVA) | payer OTHER, SELFPAY | PROVIDERS: PCP Internal Medicine; Visit Provider Internal Medicine | DX: J43.2 Centrilobular emphysema (principal); I50.9 Heart failure, unspecified; R09.02 Hypoxemia; Z87.891 Personal history of nicotine dependence; Z79.82 Long term (current) use of aspirin; Z99.81 Dependence on supplemental oxygen; Z79.899 Other long term (current) drug therapy | CPT/HCPCS: Q3014 ==

== ENCOUNTER 2022-10-18 18:17 | Inpatient (IN) | payer OTHER, SELFPAY ==
[2022-10-18] VITALS (8 sets, daily range): BP systolic 92–106; BP diastolic 55–79; PULSE 75–83; RESP 17–24; TEMP 35.6–37.2; O2SAT 87–92; BMI 28.3
--- NOTE | ~2022-10-18 | XR_ITS ---
EXAMINATION: XR CHEST CLINICAL INFORMATION: Shortness of breath, worsening hypoxic COMPARISON: 10/22/2022 TECHNIQUE: Frontal view of the chest was obtained. FINDINGS: Lung volumes are symmetric. Mild patchy bibasilar opacities are similar to prior. Small pleural effusions are suspected as noted on recent CT. No evidence of pneumothorax. Mildly prominent central vasculature. Cardiac silhouette appears near the upper limits of normal in size. Calcification is present at the aortic arch. No acute osseous findings are seen. XR/XR chest 1V IMPRESSION: Mild patchy bibasilar opacities which may reflect atelectasis along with small pleural effusions, similar to prior. Mildly prominent central vasculature.
--- NOTE | ~2022-10-18 | XR_ITS ---
EXAMINATION: XR CHEST CLINICAL INFORMATION: Hypoxia. COMPARISON: Multiple priors with the last chest x-ray of 10/24/2022. TECHNIQUE: Frontal view of the chest was obtained. FINDINGS: An endotracheal tube is in place terminating approximately 4.6 cm above the lillian. Unchanged positioning of the left IJ approach catheter with the tip projecting over the expected location of the vgj-lf-[id number] SVC. An enteric tube is in place, coursing below the diaphragm; the tip is external to the [id number]-jh-[id number]. Multiple external cardiac leads overlie the chest with the tubing overlying the right chest. No evidence of pneumothorax. Anaga-gi-nxishfiv right and probable trace left pleural effusion, not significantly changed compared to last study. Tubular and patchy coarse opacities in the mid and lower lung zones are redemonstrated, without significant interval change compared to last study. The opacities in the left ucq-dw-egsoe lung zones appear to be increased when compared to chest x-ray of 10/22/2022. Changes of emphysema are better seen on the chest CT of 10/22/2022. No evidence of changes of overt pulmonary edema. Cardiomediastinal silhouette is unchanged. XR/XR chest 1V IMPRESSION: 1. Endotracheal tube terminates 4.6 cm above the lillian. 2. Overall there does not appear to be significant interval change compared to last chest x-ray of 10/24/2022, however, coarse opacities in the left fnu-av-xngga lung zone appear to be increased/worsened compared to previous x-ray of 10/22/2022. 3. Mqogl-py-mlkqupvs right and trace left pleural effusions; not significantly changed.
--- NOTE | ~2022-10-18 | XR_ITS ---
EXAMINATION: XR CHEST CLINICAL INFORMATION: Hypoxia COMPARISON: None available. TECHNIQUE: Frontal view of the chest was obtained. FINDINGS: Left internal jugular central venous catheter tip is in the superior vena cava cava. An NG tube has been placed, sidehole is above the GE junction and should be advanced. ET tube tip is 1 cm above the aortic knob, approximately 6 to 7 cm above the lillian and should also be advanced. Heart size upper limits of normal. Aortic calcifications are seen. Mediastinum is not widened. Vascularity upper limits of normal. Bilateral increased markings are identified mid to lower lung zones, right greater than left. Suspect right pleural effusion. Degenerative changes. XR/XR chest 1V IMPRESSION: Likely bibasilar atelectasis/pneumonias and right pleural effusion. Lines as described.
--- NOTE | ~2022-10-18 | XR_ITS ---
EXAMINATION: XR CHEST CLINICAL INFORMATION: Hypoxia COMPARISON: CT chest 10/31/2022, chest radiograph 10/30/2022 TECHNIQUE: Frontal view of the chest was obtained. FINDINGS: Compared with the CT scan from this morning, there is now a moderate-sized right pneumothorax. There is right lower lobe collapse/consolidation and a small persistent left effusion with left basilar atelectasis. ET tube is present with its tip 3.7 cm above the lillian. Left IJ catheter with tip in SVC. NG tube with tip below the diaphragm. XR/XR chest 1V IMPRESSION: New right-sided pneumothorax. Just prior to this reading, a chest tube was inserted.
--- NOTE | ~2022-10-18 | XR_ITS ---
EXAMINATION: XR CHEST CLINICAL INFORMATION: Line placement COMPARISON: Chest x-ray 10/24/2022 TECHNIQUE: Frontal portable view of the chest was obtained. 1455 hours FINDINGS: Tubes and lines: 1. Endotracheal tube catheter 5 cm above the lillina. 2. Nasogastric tube passing below diaphragm into the stomach. Catheter tip at the cardia of the stomach. Sidehole is in the distal thoracic esophagus at the GE junction level. 3. Left IJ catheter tip in superior vena cava at the caval atrial junction. There is no pneumothorax. Persistent patchy bilateral airspace opacities and increased pulmonary vascularity similar prior chest x-ray this a.m. Haziness in the right lung base probably due to pleural effusion. XR/XR chest 1V IMPRESSION: 1. Endotracheal tube catheter 5 cm above the lillian. 2. Nasogastric tube passing below diaphragm into the stomach. Catheter tip at the cardia of the stomach. Sidehole is in the distal thoracic esophagus at the GE junction level. 3. Left IJ catheter tip in superior vena cava at the caval atrial junction. 4. Persistent bilateral airspace opacities and increased pulmonary vascularity. Right pleural effusion.
--- NOTE | ~2022-10-18 | XR_ITS ---
EXAMINATION: XR CHEST CLINICAL INFORMATION: Status post chest tube insertion COMPARISON: Chest radiograph earlier today 3:24 PM TECHNIQUE: Frontal view of the chest was obtained at 4:06 PM. FINDINGS: A right-sided chest tube has been placed in the right-sided pneumothorax has significantly decreased in size with a small residual pneumothorax remaining. There may be some air loculated in the minor fissure. Right lower lobe consolidation/effusion/atelectasis remains. No other change. Tubes and catheters remain in similar positions. XR/XR chest 1V IMPRESSION: Status post placement of right-sided chest tube with decrease in size of right-sided pneumothorax.
--- NOTE | ~2022-10-18 | CT_ITS ---
EXAMINATION: CT CHEST WITHOUT CONTRAST CLINICAL INFORMATION: Hypoxia. COMPARISON: 10/22/2022 and 10/18/2022 TECHNIQUE: Multidetector volumetric CT imaging of the chest was done. Axial MIP volume rendering provided. Sagittal and coronal reformatted images were obtained. This CT examination was performed using dose optimization techniques as appropriate, variously including the following: *Automated exposure control *Adjustment of mA and/or kV according to patient size (this includes techniques or standardized protocols for targeted exams where dose is matched to indication/reason for exam; i.e. extremities or head) *Use of iterative reconstruction technique DLP: 328 mGy-cm FINDINGS: LUNGS: Endotracheal tube tip terminates approximately 5 cm above the lillian. Central airways are patent. Marked centrilobular emphysema. Motion artifact technically degrades image quality. Bilateral lower lobe compressive atelectasis. 3 mm nodule left upper lobe on image 272 of series 6. MEDIASTINUM: No mediastinal or hilar lymphadenopathy. Dilated pulmonary arteries. Heart is enlarged. No pericardial effusion. CORONARY ARTERY CALCIFICATION: Moderate. PLEURA: Large right pleural effusion. Small left pleural effusion. AXILLA: No axillary lymphadenopathy. UPPER ABDOMEN: Enteric catheter terminates in the distended stomach. No adrenal mass. OSSEOUS STRUCTURES: No destructive bone lesions. CT/CT chest wo IV con IMPRESSION: Technically limited study. Large right pleural effusion. Small left pleural effusion. 3 mm left upper lobe pulmonary nodule. Dilated pulmonary arteries.
--- NOTE | ~2022-10-18 | CT_ITS ---
EXAMINATION: CT HEAD WITHOUT CONTRAST CLINICAL INFORMATION: Persistent encephalopathy COMPARISON: Previous head CT most recent 10/18/2022 TECHNIQUE: Contiguous axial imaging was performed from the skull base to vertex without intravenous administration of contrast. This CT examination was performed using dose optimization techniques as appropriate, variously including the following: *Automated exposure control *Adjustment of mA and/or kV according to patient size (this includes techniques or standardized protocols for targeted exams where dose is matched to indication/reason for exam; i.e. extremities or head) *Use of iterative reconstruction technique DLP: 758 mGy-cm FINDINGS: There is no evidence of an extra-axial collection. There is no evidence of intra or extra-axial hemorrhage. The ventricles and extra-axial CSF spaces are prominent suggestive of generalized atrophy. There is nonspecific periventricular white matter disease. Right posterior parietal infarct or area of encephalomalacia that appears unchanged. There is mineralization of the left basal ganglia that is unchanged. No mass, mass effect or acute infarct is seen. Review of bone windows is normal. No skull fracture. Visualized paranasal sinuses, mastoid air cells and middle ears are clear. CT/CT head/brain wo IV con IMPRESSION: No acute findings. No change from previous exam.
--- NOTE | 2022-10-18 19:07 | ED.SOB ---
HPI - SOB/Dyspnea General Chief Complaint: Dyspnea Stated Complaint: DIFF BREATHING, FALL Time Seen by Provider: 10/18/22 18:21 Source: patient and EMS Mode of arrival: EMS History of Present Illness HPI Narrative: 72-year-old male who presents with 2 weeks of shortness of breath that he states was far worse this evening, he reports that it is his COPD and that he is normally on 6 L of nasal cannula at baseline. According to EMS they were called because patient has had multiple falls today for which patient denies any head strike sore loss of consciousness but states he fell onto his right arm. EMS states that patient was noted to be hypotensive and oxygenation was at approximately 75-80%. Patient arrives with a non-rebreather. Related Data Home Medications Medication Instructions Recorded Confirmed lisinopril 10 mg tablet 1 tab PO DAILY 06/08/20 10/18/22 pravastatin 40 mg tablet 1 tab PO DAILY 06/08/20 10/18/22 aspirin 81 mg chewable tablet 1 tab PO DAILY 04/29/22 10/18/22 fluticasone fur. 200 mcg-umeclid 1 puff inhalation DAILY 04/29/22 10/18/22 62.5 mcg-vilant 25 mcg inhalat.powder (Trelegy Ellipta) Previous Rx's Medication Instructions Recorded albuterol sulfate 90 mcg/actuation 1 inh inhalation QID PRN sob #8.5 05/14/22 aerosol inhaler grams apixaban 5 mg tablet (Eliquis) 5 mg PO BID #60 tabs 05/14/22 digoxin 125 mcg (0.125 mg) tablet 125 mcg PO Q OTHER DAY #14 tabs 05/14/22 furosemide 40 mg tablet 40 mg PO DAILY #30 tabs 05/14/22 metoprolol tartrate 25 mg tablet 25 mg PO BID #60 tabs 05/14/22 Allergies Allergy/AdvReac Type Severity Reaction Status Date / Time No Known Allergies Allergy Verified 05/28/22 10:05 Review of Systems Review of Systems: Pertinent positives and negatives as stated in HPI [facility] Past Medical History Source: nursing notes reviewed Medical History BPH (benign prostatic hyperplasia) COPD (chronic obstructive pulmonary disease) COPD (chronic obstructive pulmonary disease) HTN (hypertension) Hypoxemia Surgical History H/O hernia repair Family History Family History Other CAD (coronary artery disease) Social History Social History Household Members: None Housing: Other Housing Other:: mobile home Do you presently have visiting nurse or other home services: Yes (cleaning lady, meals ([place] senior citizen)) Alcohol intake: current Alcohol intake frequency: holidays/special occasions only Patient Tobacco Use Status: Former Tobacco user Quit Date: 15 years ago Advance Directives: No Advance Directives Information Provided: No service: No Current occupational status: retired and disabled Physical Exam Vital Signs: Vital Signs: Last Vital Signs Temp 97.6 F 10/18/22 21:14 Pulse 78 10/18/22 21:14 Resp 20 10/18/22 21:14 BP 93/64 10/18/22 21:14 Pulse Ox 92 10/18/22 20:59 O2 Del Method Nasal Cannula 10/18/22 20:59 O2 Flow Rate 6 10/18/22 18:35 Oxygen Flow Rate 6 10/18/22 18:31 BMI result Body Mass Index 28.3 VITAL SIGNS: Reviewed. GENERAL: Chronically ill, in no acute distress. HEAD: Normocephalic/atraumatic EYES: PERRLA, EOMI EARS: Ext canals without abnormality NOSE: Nares patent bilateral OROPHARYNX: no oral lesions noted, posterior pharynx clear NECK: Supple, no adenopathy LUNGS: Decreased breath sounds bilaterally without expiratory wheeze. SpO2<87> on nasal cannula CARDIOVASCULAR: Regular rate and rhythm without noted murmurs, no JVD or lower extremity edema. ABDOMEN: Soft, non-tender, non-distended with bowel sounds. MUSCULOSKELETAL: No tenderness, deformities, or effusions noted on gross inspection. EXTREMITIES: No cyanosis, clubbing or edema. SKIN: Inspection of the skin reveals no rashes NEUROLOGIC: Alert and oriented x 4. Strength and sensation to light touch were grossly intact x 4. Medications Administered Discontinued Medications Generic Name Dose Route Start Last Admin Trade Name Freq PRN Reason Stop Dose Admin Furosemide 60 mg 10/18/22 19:43 10/18/22 20:20 Furosemide 100 Mg/10 Ml Vial IVPUSH 10/18/22 19:44 60 mg ONCE ONE Administration Protocol Sodium Chloride 1,000 mls @ 999 mls/hr 10/18/22 19:45 10/18/22 21:22 Ns IV 10/18/22 20:45 Infused .Q1H1M SHERLYN Infusion Iohexol 100 ml 10/18/22 20:01 10/18/22 20:01 Iohexol 350 Mg/Ml 100 Ml Infus..Btl IV 10/18/22 20:02 85 ml ONCE ONE Administration Pantoprazole Sodium 80 mg 10/18/22 20:49 10/18/22 21:11 Pantoprazole Sodium 40 Mg/10 Ml Vial IVPUSH 10/18/22 20:50 80 mg ONCE ONE Administration Medical Decision Making Medical Decision Making MDM Narrative: 72-year-old male with history and clinical presentation, DDX: Pneumonia, chronic lung disease, ACS. My concern is that and EKG at [address] changes in the anterior distribution which I do not appreciate on EKG from April of this year, but patient denies any chest pain. 1924: I received a phone call from the lab who informed me that this patient has a hemoglobin of 6.8. Will proceed with confirmation, stool occult for blood, type and screen/and crossmatch for 2 units. Patient does have a component of anemia of chronic disease but given his recent falls and living home alone raises concerns for possible internal bleeding as a contributing factor for shortness of breath and low blood pressure. He is mentating well and communicating well. Will also initiate a new IV. 1936: Lactic acid returned at 2.3, however this is most consistent with patient's hypotension secondary to blood loss secondary to elevated INR of 6.8. Patient has been consented and will receive normal saline as well as 1 unit of RBCs. Will also treat patient with Kcentra if CT scan demonstrates active bleeding. 1943: I reviewed the hematologic values, repeat hemoglobin and hematocrit remain significantly lower than baseline suggesting the source of hypotension/liver values/lactic acid and shortness of breath complaints. Review of chemistries demonstrate elevated liver enzymes likely secondary to the low blood pressure, which is again not secondary to infectious etiology, in addition there is SAYDA, patient appears both clinically/chest x-ray/BNP to be in fluid overload. Will treat with 60 mg of Lasix, 1 unit of RBCs has been ordered, I did discuss this case with inpatient hospitalist who accepts admission. Differential Diagnosis Please see the discussion above Admission/Observation Consideration of admission/observation: Escalation of care including admission/observation considered Consult Healthcare Provider Management of the patient was discussed with: Hospitalist Please see the discussion above Lab Data Please see the discussion above 10/18/22 19:05 10/18/22 19:05 Labs: Lab Results 10/18/22 10/18/22 10/18/22 Range/Units 19:02 19:05 19:05 WBC 8.5 (4.8-10.8) X10*3/uL RBC 4.01 L D (4.60-5.80) X10*6/uL Hgb 6.8 L* D (14.0-18.0) g/dl Hct 27.7 L D (42.0-52.0) % MCV 69.1 L (80.0-98.0) fL MCH 17.0 L (27.0-33.0) pg MCHC 24.5 L (31.0-36.0) g/dl RDW 23.9 H (11.0-16.0) % Plt Count 287 (160-400) X10*3/uL MPV 10.0 (9.4-12.4) fL Immature Gran % (Auto) 0.4 (0.0-0.4) % Neut % (Auto) 77.0 H (45-73) % Lymph % (Auto) 11.8 L (20-40) % [place] % (Auto) 8.8 (2-11) % Eos % (Auto) 1.2 (0-4) % Baso % (Auto) 0.8 (0-2) % Lymph # (Auto) 1.0 L (1.2-4.9) X10*3/uL [place] # (Auto) 0.8 (0.1-1.2) X10*3/uL Eos # (Auto) 0.1 (0.0-0.4) X10*3/uL Baso # (Auto) 0.1 (0.0-0.2) X10*3/uL Abs Immat Gran (auto) 0.03 (0.00-0.03) X10*3/uL Absolute Neuts (auto) 6.5 (2.0-8.3) x10*3/uL Absolute Nucleated RBC 0.200 H (0.0-0.012) X10*3/uL Nucleated RBC % (auto) 2.4 H (0.0-0.2) /100WBC Smear Tech's Comments VERIFIED PT (10.0-13.1) SEC INR (0.9-1.1) VBG pH (7.32-7.43) VBG pCO2 mmHg VBG pO2 mmHg VBG HCO3 (22-26) mmol/L VBG O2 Saturation % VBG Base Excess mmol/L Sodium 138 (135-145) mmol/L Potassium 4.7 (3.3-5.1) mmol/L Chloride 108 (96-108) mmol/L Carbon Dioxide 19 L (22-29) mmol/L Anion Gap 16 (12-20) BUN 60 H (9-16) mg/dL Creatinine 1.56 H (0.5-1.4) mg/dL Estim Creat Clear Calc 42.5 Estimated GFR 44 Random Glucose 93 (60-115) mg/dL Lactic Acid 2.3 H* (0.5-2.0) mmol/L Calcium 8.8 (8.4-10.2) mg/dL Total Bilirubin 1.6 H (0.0-1.0) mg/dL AST 71 H (5-37) U/L ALT 94 H (0-40) U/L Alkaline Phosphatase 79 (39-117) U/L Troponin I High Sens (<3.5-35.0) ng/L B-Natriuretic Peptide (<100) pg/mL Total Protein 5.8 L (6.5-8.0) g/dL Albumin 3.0 L (3.5-5.0) g/dL Stool Occult Blood (NEGATIVE) Blood Type Antibody Screen Crossmatch 10/18/22 10/18/22 10/18/22 Range/Units 19:05 19:05 19:05 WBC (4.8-10.8) X10*3/uL RBC (4.60-5.80) X10*6/uL Hgb (14.0-18.0) g/dl Hct (42.0-52.0) % MCV (80.0-98.0) fL MCH (27.0-33.0) pg MCHC (31.0-36.0) g/dl RDW (11.0-16.0) % Plt Count (160-400) X10*3/uL MPV (9.4-12.4) fL Immature Gran % (Auto) (0.0-0.4) % Neut % (Auto) (45-73) % Lymph % (Auto) (20-40) % [place] % (Auto) (2-11) % Eos % (Auto) (0-4) % Baso % (Auto) (0-2) % Lymph # (Auto) (1.2-4.9) X10*3/uL [place] # (Auto) (0.1-1.2) X10*3/uL Eos # (Auto) (0.0-0.4) X10*3/uL Baso # (Auto) (0.0-0.2) X10*3/uL Abs Immat Gran (auto) (0.00-0.03) X10*3/uL Absolute Neuts (auto) (2.0-8.3) x10*3/uL Absolute Nucleated RBC (0.0-0.012) X10*3/uL Nucleated RBC % (auto) (0.0-0.2) /100WBC Smear Tech's Comments PT 85.3 H (10.0-13.1) SEC INR 6.9 H* D (0.9-1.1) VBG pH (7.32-7.43) VBG pCO2 mmHg VBG pO2 mmHg VBG HCO3 (22-26) mmol/L VBG O2 Saturation % VBG Base Excess mmol/L Sodium (135-145) mmol/L Potassium (3.3-5.1) mmol/L Chloride (96-108) mmol/L Carbon Dioxide (22-29) mmol/L Anion Gap (12-20) BUN (9-16) mg/dL Creatinine (0.5-1.4) mg/dL Estim Creat Clear Calc Estimated GFR Random Glucose (60-115) mg/dL Lactic Acid (0.5-2.0) mmol/L Calcium (8.4-10.2) mg/dL Total Bilirubin (0.0-1.0) mg/dL AST (5-37) U/L ALT (0-40) U/L Alkaline Phosphatase (39-117) U/L Troponin I High Sens 28.9 D (<3.5-35.0) ng/L B-Natriuretic Peptide 2693 H (<100) pg/mL Total Protein (6.5-8.0) g/dL Albumin (3.5-5.0) g/dL Stool Occult Blood (NEGATIVE) Blood Type Antibody Screen Crossmatch 10/18/22 10/18/22 10/18/22 Range/Units 19:11 19:35 19:35 WBC (4.8-10.8) X10*3/uL RBC (4.60-5.80) X10*6/uL Hgb 7.1 L (14.0-18.0) g/dl Hct 29.1 L (42.0-52.0) % MCV (80.0-98.0) fL MCH (27.0-33.0) pg MCHC (31.0-36.0) g/dl RDW (11.0-16.0) % Plt Count (160-400) X10*3/uL MPV (9.4-12.4) fL Immature Gran % (Auto) (0.0-0.4) % Neut % (Auto) (45-73) % Lymph % (Auto) (20-40) % [place] % (Auto) (2-11) % Eos % (Auto) (0-4) % Baso % (Auto) (0-2) % Lymph # (Auto) (1.2-4.9) X10*3/uL [place] # (Auto) (0.1-1.2) X10*3/uL Eos # (Auto) (0.0-0.4) X10*3/uL Baso # (Auto) (0.0-0.2) X10*3/uL Abs Immat Gran (auto) (0.00-0.03) X10*3/uL Absolute Neuts (auto) (2.0-8.3) x10*3/uL Absolute Nucleated RBC (0.0-0.012) X10*3/uL Nucleated RBC % (auto) (0.0-0.2) /100WBC Smear Tech's Comments PT (10.0-13.1) SEC INR (0.9-1.1) VBG pH 7.46 H (7.32-7.43) VBG pCO2 29 mmHg VBG pO2 62 mmHg VBG HCO3 20 L (22-26) mmol/L VBG O2 Saturation 89.0 % VBG Base Excess -2.0 mmol/L Sodium (135-145) mmol/L Potassium (3.3-5.1) mmol/L Chloride (96-108) mmol/L Carbon Dioxide (22-29) mmol/L Anion Gap (12-20) BUN (9-16) mg/dL Creatinine (0.5-1.4) mg/dL Estim Creat Clear Calc Estimated GFR Random Glucose (60-115) mg/dL Lactic Acid (0.5-2.0) mmol/L Calcium (8.4-10.2) mg/dL Total Bilirubin (0.0-1.0) mg/dL AST (5-37) U/L ALT (0-40) U/L Alkaline Phosphatase (39-117) U/L Troponin I High Sens (<3.5-35.0) ng/L B-Natriuretic Peptide (<100) pg/mL Total Protein (6.5-8.0) g/dL Albumin (3.5-5.0) g/dL Stool Occult Blood POSITIVE (NEGATIVE) Blood Type Antibody Screen Crossmatch 10/18/22 Range/Units 19:35 WBC (4.8-10.8) X10*3/uL RBC (4.60-5.80) X10*6/uL Hgb (14.0-18.0) g/dl Hct (42.0-52.0) % MCV (80.0-98.0) fL MCH (27.0-33.0) pg MCHC (31.0-36.0) g/dl RDW (11.0-16.0) % Plt Count (160-400) X10*3/uL MPV (9.4-12.4) fL Immature Gran % (Auto) (0.0-0.4) % Neut % (Auto) (45-73) % Lymph % (Auto) (20-40) % [place] % (Auto) (2-11) % Eos % (Auto) (0-4) % Baso % (Auto) (0-2) % Lymph # (Auto) (1.2-4.9) X10*3/uL [place] # (Auto) (0.1-1.2) X10*3/uL Eos # (Auto) (0.0-0.4) X10*3/uL Baso # (Auto) (0.0-0.2) X10*3/uL Abs Immat Gran (auto) (0.00-0.03) X10*3/uL Absolute Neuts (auto) (2.0-8.3) x10*3/uL Absolute Nucleated RBC (0.0-0.012) X10*3/uL Nucleated RBC % (auto) (0.0-0.2) /100WBC Smear Tech's Comments PT (10.0-13.1) SEC INR (0.9-1.1) VBG pH (7.32-7.43) VBG pCO2 mmHg VBG pO2 mmHg VBG HCO3 (22-26) mmol/L VBG O2 Saturation % VBG Base Excess mmol/L Sodium (135-145) mmol/L Potassium (3.3-5.1) mmol/L Chloride (96-108) mmol/L Carbon Dioxide (22-29) mmol/L Anion Gap (12-20) BUN (9-16) mg/dL Creatinine (0.5-1.4) mg/dL Estim Creat Clear Calc Estimated GFR Random Glucose (60-115) mg/dL Lactic Acid (0.5-2.0) mmol/L Calcium (8.4-10.2) mg/dL Total Bilirubin (0.0-1.0) mg/dL AST (5-37) U/L ALT (0-40) U/L Alkaline Phosphatase (39-117) U/L Troponin I High Sens (<3.5-35.0) ng/L B-Natriuretic Peptide (<100) pg/mL Total Protein (6.5-8.0) g/dL Albumin (3.5-5.0) g/dL Stool Occult Blood (NEGATIVE) Blood Type A Positive Antibody Screen NEGATIVE Crossmatch See Detail Independent Interpretation I performed an independent interpretation of an: EKG Interpretation: Atrial fibrillation, HR-74, QTC -424, nonspecific ST changes in the anterior and precordial leads. Radiology Impression Radiologist Impression: Fluid overload, otherwise my interpretation is in agreement with radiology's impression. External Record Review External record reviewed: Outpatient record and Prior outpatient labs Chronic Conditions Patient?s care impacted by: Other COPD, CHF Critical Care Time Critical Care Time Critical Care Time: Yes Total Critical Care Time: 60 Attestation: I personally attest to this time spent taking care of the patient. Discharge Plan Discharge Clinical Impression: Chronic anticoagulation, CHF exacerbation, SAYDA (acute kidney injury), ABLA (acute blood loss anemia) Patient Disposition: Admitted As Inpatient
--- NOTE | 2022-10-18 20:03 | PC.NURSE ---
BP 80/51. Lasix held at this time.
--- NOTE | 2022-10-18 20:20 | PC.NURSE ---
BP 93/61. Lasix administered.
--- NOTE | 2022-10-18 21:02 | PC.NURSE ---
1 unit PRBCs initiated at this time. Pt informed of s/s of transfusion reaction and voices understanding.
--- NOTE | 2022-10-18 21:16 | PM.IMHP ---
History of Present Illness Date of Service: 10/18/22 Attending physician on admission: Neha Oneill Chief Complaint: SOB Pt is a 72-year-old male with a PMH significant for hx of atrial flutter on Eliquid, COPD, HFpEF, BPH, and HLD who presents to the ED with?worsening lightheadedness, dizziness, and history of recent falls for the past 2 weeks. Patient states that he has been experiencing dizziness and lightheadedness especially with bending over the past couple of weeks. Has fallen a couple of times including at least twice this morning. Patient denies striking his head or losing consciousness. Reports falling on his right side. Denies any trauma to the area for any associated musculoskeletal pain. Says no pain with ambulation. Patient is on 6 L of O2 at home, reports chronic SOB that is essentially at baseline. Patient does note that he has been losing weight the past 2 months which he ascribes to not having as much of an appetite as before and eating less. Denies nausea, vomiting, abdominal pain. Does not report any active bleeding. Patient states he never looks at his stool so is unable to comment on melena or hematochezia. Denies chest pain/pressure, palpitations. In the ED patient was afebrile but tachypneic up to 24, BP a little soft as low as 92/55, satting at 87% O2 on 6L NC. Labs were significant for H&H of 6.8/27.7, INR 6.9, BUN of 60, creatinine 1.56, lactic acid 2.3, hyperbilirubinemia of 1.6, AST of 71, ALT 94, BNP of 2693, albumin 3.0. Stool positive for occult blood. CXR showed possible small left pleural effusion with increased interstitial markings, suggestive of mild CHF or interstitial lung disease. CT of chest and abdomen/pelvis found no acute traumatic finding of chest, abdomen, or pelvis, but did show severe emphysema with small right pleural effusion with associated atelectasis. Also found 6.1 cm infrarenal abdominal aortic aneurysm, and unchanged 0.6 cm right lower lobe nodules suggestive of benign etiology. CT of head showed no acute intracranial pathology with chronic right parietal lobe infarct. EKG demonstrated sinus rhythm with first-degree AV block. Pt was treated with IVF, Lasix, and received 1 unit of PRBCs. Pt will be admitted to the hospital for treatment and evaluation of acute on chronic hypoxic respiratory failure in the setting blood loss anemia. Review of Systems Review of Systems: Lightheadedness, dizziness, especially when bending over Multiple falls earlier today and over the past couple of weeks Patient denies musculoskeletal pain Denies striking head or loss of consciousness Chronic SOB about at baseline Denies lower leg edema Has been losing weight the past few months d/t anorexia Denies chest pain/pressure, palpitations No nausea, vomiting, fever, chills, abdominal pain Yes all other systems are reviewed and are negative [facility] Medical History BPH (benign prostatic hyperplasia) COPD (chronic obstructive pulmonary disease) COPD (chronic obstructive pulmonary disease) HTN (hypertension) Hypoxemia Family History Other CAD (coronary artery disease) Surgical History H/O hernia repair Social History Household Members: None Housing: Other Housing Other:: mobile home Do you presently have visiting nurse or other home services: Yes (cleaning lady, meals ([place] senior citizen)) Alcohol intake: current Alcohol intake frequency: holidays/special occasions only Patient Tobacco Use Status: Former Tobacco user Quit Date: 15 years ago Advance Directives: No Advance Directives Information Provided: No service: No Current occupational status: retired and disabled Meds Allergies Allergy/AdvReac Type Severity Reaction Status Date / Time No Known Allergies Allergy Verified 05/28/22 10:05 Active Medications: Current Medications Pharmacy Consult (Consult Rx Perform Med Rec) 1 each MISCELLANE ONCE PRN PRN Reason: Consult order Home Medications Medication Instructions Recorded Confirmed Last Taken Type lisinopril 10 mg tablet 1 tab PO DAILY 06/08/20 10/18/22 04/28/22 09:00 History pravastatin 40 mg tablet 1 tab PO DAILY 06/08/20 10/18/22 04/28/22 09:00 History aspirin 81 mg chewable tablet 1 tab PO DAILY 04/29/22 10/18/22 04/28/22 09:00 History fluticasone fur. 200 mcg-umeclid 1 puff inhalation DAILY 04/29/22 10/18/22 04/28/22 09:00 History 62.5 mcg-vilant 25 mcg inhalat.powder (Trelegy Ellipta) Physical Exam Vital Signs and Narrative: Vital Signs: Last Vital Signs Temp 96.1 F L 10/18/22 20:57 Pulse 75 10/18/22 20:59 Resp 18 10/18/22 20:59 BP 101/63 10/18/22 20:59 Pulse Ox 92 10/18/22 20:59 O2 Del Method Nasal Cannula 10/18/22 20:59 O2 Flow Rate 6 10/18/22 18:35 Oxygen Flow Rate 6 10/18/22 18:31 BMI result Body Mass Index 28.3 Constitutional: Alert, in no acute distress. Mental Status: Oriented to person, place and time. Eyes: Pupils are equal, round, and reactive to light. Ear, Nose, and Throat: Oropharynx clear, mucous membranes moist. Ears and nose without deformities. Trachea midline. Respiratory: Expiratory wheezing bilaterally. Cardiovascular: S1, S2 regular. No murmurs, rubs, or gallops. Gastrointestinal: Abdomen soft, non-tender, non-distended. Normal bowel sounds. Neurologic: Cranial nerves II-XII are grossly intact bilaterally. No focal neurological deficits. Moves all extremities spontaneously. Skin: No rashes or lesions noted. Musculoskeletal: No cyanosis or clubbing. Extremities: No lower extremity edema. Psychiatric: Normal mood and affect. Results Labs 10/18/22 19:35 10/18/22 19:05 Labs: Laboratory Results - last 24 hr 10/18/22 10/18/22 10/18/22 19:02 19:05 19:05 MCV 69.1 L MCH 17.0 L MCHC 24.5 L RDW 23.9 H Plt Count 287 MPV 10.0 Immature Gran % (Auto) 0.4 Neut % (Auto) 77.0 H Lymph % (Auto) 11.8 L [place] % (Auto) 8.8 Eos % (Auto) 1.2 Baso % (Auto) 0.8 Lymph # (Auto) 1.0 L [place] # (Auto) 0.8 Eos # (Auto) 0.1 Baso # (Auto) 0.1 Abs Immat Gran (auto) 0.03 Absolute Neuts (auto) 6.5 Absolute Nucleated RBC 0.200 H Nucleated RBC % (auto) 2.4 H Smear Tech's Comments VERIFIED PT INR VBG pH VBG pCO2 VBG pO2 VBG HCO3 VBG O2 Saturation VBG Base Excess Anion Gap 16 Estim Creat Clear Calc 42.5 Estimated GFR 44 Random Glucose 93 Lactic Acid 2.3 H* Calcium 8.8 Total Bilirubin 1.6 H AST 71 H ALT 94 H Alkaline Phosphatase 79 Troponin I High Sens B-Natriuretic Peptide Total Protein 5.8 L Albumin 3.0 L Stool Occult Blood Blood Type Antibody Screen Crossmatch 10/18/22 10/18/22 10/18/22 19:05 19:05 19:05 MCV MCH MCHC RDW Plt Count MPV Immature Gran % (Auto) Neut % (Auto) Lymph % (Auto) [place] % (Auto) Eos % (Auto) Baso % (Auto) Lymph # (Auto) [place] # (Auto) Eos # (Auto) Baso # (Auto) Abs Immat Gran (auto) Absolute Neuts (auto) Absolute Nucleated RBC Nucleated RBC % (auto) Smear Tech's Comments PT 85.3 H INR 6.9 H* D VBG pH VBG pCO2 VBG pO2 VBG HCO3 VBG O2 Saturation VBG Base Excess Anion Gap Estim Creat Clear Calc Estimated GFR Random Glucose Lactic Acid Calcium Total Bilirubin AST ALT Alkaline Phosphatase Troponin I High Sens 28.9 D B-Natriuretic Peptide 2693 H Total Protein Albumin Stool Occult Blood Blood Type Antibody Screen Crossmatch 10/18/22 10/18/22 10/18/22 19:11 19:35 19:35 MCV MCH MCHC RDW Plt Count MPV Immature Gran % (Auto) Neut % (Auto) Lymph % (Auto) [place] % (Auto) Eos % (Auto) Baso % (Auto) Lymph # (Auto) [place] # (Auto) Eos # (Auto) Baso # (Auto) Abs Immat Gran (auto) Absolute Neuts (auto) Absolute Nucleated RBC Nucleated RBC % (auto) Smear Tech's Comments PT INR VBG pH 7.46 H VBG pCO2 29 VBG pO2 62 VBG HCO3 20 L VBG O2 Saturation 89.0 VBG Base Excess -2.0 Anion Gap Estim Creat Clear Calc Estimated GFR Random Glucose Lactic Acid Calcium Total Bilirubin AST ALT Alkaline Phosphatase Troponin I High Sens B-Natriuretic Peptide Total Protein Albumin Stool Occult Blood POSITIVE Blood Type A Positive Antibody Screen NEGATIVE Crossmatch See Detail Imaging Radiologist's Impressions: Impressions Chest X-Ray 10/18/22 19:24 IMPRESSION: Enlarged cardiac silhouette. Increased interstitial markings greatest at the left lung base and question small left pleural effusion. Differential would include mild CHF and interstitial lung disease. Head CT 10/18/22 20:21 IMPRESSION: No acute intracranial pathology. Chronic right parietal lobe infarct. Abdomen/Pelvis CT 10/18/22 20:22 IMPRESSION: 1. No acute traumatic finding of the chest, abdomen, or pelvis. 2. Severe emphysema. Small right pleural effusion with associated atelectasis. 3. 6.1 cm infrarenal abdominal aortic aneurysm. Recommend referral to vascular specialist. Reference: J Am Aura Radiol 2013; 10 (10): 789-794. 4. Unchanged 0.6 cm right lower lobe nodules suggestive of benign etiology. Chest CT 10/18/22 20:23 IMPRESSION: 1. No acute traumatic finding of the chest, abdomen, or pelvis. 2. Severe emphysema. Small right pleural effusion with associated atelectasis. 3. 6.1 cm infrarenal abdominal aortic aneurysm. Recommend referral to vascular specialist. Reference: J Am Aura Radiol 2013; 10 (10): 789-794. 4. Unchanged 0.6 cm right lower lobe nodules suggestive of benign etiology. Assessment and Plan (1) SAYDA (acute kidney injury): Status: Acute (2) Acute and chronic respiratory failure: Qualifiers: Respiratory failure complication: hypoxia Qualified Code(s): J96.21 - Acute and chronic respiratory failure with hypoxia Status: Acute (3) ABLA (acute blood loss anemia): Status: Acute Plan Pt is a 72-year-old male with a PMH significant for hx of atrial flutter on Eliquid, COPD, HFpEF, BPH, and HLD who presents to the ED with?worsening lightheadedness, dizziness, and history of recent falls for the past 2 weeks. Pt will be admitted to the hospital for treatment and evaluation of acute on chronic hypoxic respiratory failure in the setting blood loss anemia. Acute on chronic hypoxic respiratory failure in setting of blood loss anemia Pt on 6 L home O2, satting at 75-80% when EMS arrived Patient received DuoNebs and Solu-Medrol in ED Stool positive for occult blood IV protonix DuoNebs, continue home inhalers GI consult Patient be made NPO after midnight in anticipation of possible procedure tomorrow morning Hold Eliquis, aspirin Supratherapeutic INR INR 6.9 at time of presentation Patient not actively bleeding Pt receiving 1 unit PRBCs Will hold Eliquis Repeat INR in the morning Will give FFP if pt has an episode of active bleeding HFpEF Patient's BNP elevated 2693, however patient at baseline with SOB, no pitting edema of lower legs, no evidence of CHF on CT of chest, no rhonchi on auscultation Question of acute exacerbation Patient received 60 mg of Lasix in ED Will hold on additional Lasix for now and re-evaluate in the morning Aortic aneurysm CT of abdomen and pelvis found 6.1 cm infrarenal abdominal aortic aneurysm Vascular surgery consult SAYDA Creatinine 1.56 at time of presentation Likely secondary to blood loss Pt received 1 unit PRBCs, albumin Follow BMP Atrial flutter EKG showed sinus rhythm with first-degree AV block Hold Eliquis d/t anemia Hold digoxin, metoprolol d/t soft BP, resume as indicated BPH Continue tamsulosin HTN BP soft, hold all anti-hypertensives for now Resume as warranted HLD Hold statins d/t elevated LFTs DNR/DNI Attending:?Dr Oneill. DVT Prophylaxis: INR currently suprtherapeutic, pneumatic boots after Pt will require a hospitalization of at least two nights for treatment of?COPD and CHF exacerbations. Time Spent With Patient Time: Total time managing care of this patient today ____ minutes. Quality Stroke Does the patient have a stroke diagnosis?: No VTE Prior VTE?: No VTE Risk Level:: Medical - moderate - high VTE Device Contraindication: N/A - Device Ordered VTE Drug Contraindication: Treatment Not Indicated
--- NOTE | 2022-10-18 21:36 | PHA.MEDREC ---
Pharmacy Consult ? Medication Reconciliation Pharmacy has completed the medication reconciliation. Patient has no idea what hes on. Call son Isaias, however he does not know what his father is on. Went off pharmacy claims, patient confirmed he gets everything with [facility].
--- NOTE | 2022-10-18 21:49 | PC.NURSE ---
[place] cath placed for pt
--- NOTE | 2022-10-18 23:02 | PC.NURSE ---
[address] per hospital technique and hospital policy. clear yellow urine noted.
--- NOTE | 2022-10-18 23:02 | PC.NURSE ---
pt placed on venti mask per respiratory.. Satting 88-93%. Per Dr. Oneill pt ok to go to floor on 9-10L with oxygen saturation above 88%.
--- NOTE | 2022-10-18 23:24 | PC.NURSE ---
Report to Hortencia SERRATO [place] [facility]
[2022-10-19] VITALS (17 sets, daily range): BP systolic 89–107; BP diastolic 50–69; PULSE 78–99; RESP 14–20; TEMP 36.3–37.2; O2SAT 10–98; BMI 29.3
--- NOTE | 2022-10-19 06:10 | PM.GICN ---
History of Present Illness Data of Consult Service Date: 10/19/22 Requesting physician: Neha Oneill Primary Care Provider: Altaf Campos MD HPI Reason for consult: anemia 72-year-old male with a PMH significant for hx of atrial flutter on Eliquid, COPD, HFpEF, BPH, and HLD who I am seeing for anemia assessment He initially presented presented to the ED with?worsening lightheadedness, dizziness, and history of recent falls for the past 2 weeks without LOC or head injury. He is on chronic 6 L of O2 at home, and does admit his breathing had been worse than normal more recently. Denies chest pain/pressure, palpitations, sputum. On admission he was noted to be anemia with HGB 7 g/dl (last HGB 11 from 04/2022). He denies any overt GIB or nose bleeds, gum bleeds, hematuria. Denies nausea, vomiting, abdominal pain. He has never had EGD or colonoscopy, not been taking nsaids but is on eliquis for A-fib. LABS: H&H of 6.8/27.7, INR 6.9, BUN of 60, creatinine 1.56, lactic acid 2.3, hyperbilirubinemia of 1.6, AST of 71, ALT 94, BNP of 2693, albumin 3.0. Stool positive for occult blood.? Imaging: CXR: small left pleural effusion with increased interstitial markings, suggestive of mild CHF or interstitial lung disease.? CT of chest and abdomen/pelvis: no acute trauma, severe emphysema with small right pleural effusion with associated atelectasis.? 6.1 cm infrarenal abdominal aortic aneurysm, and unchanged 0.6 cm right lower lobe nodules suggestive of benign etiology.? CT of head:no acute intracranial pathology with chronic right parietal lobe infarct. Other data: EKG demonstrated sinus rhythm with first-degree AV block. Review of Systems Review of Systems: Constitutional : No Weight loss, No Fever, No Chills ENT/Mouth : No sore throat, No Rhinorrhea Eyes: No Swelling, No Redness Cardiovascular : No Chest Pain, + SOB, No Edema Respiratory : No Cough, No Sputum, No Wheezing Gastrointestinal : see HPI Genitourinary : NO Dysuria, No Urinary Frequency, No Hematuria, No Urgency Musculoskeletal : No joint pain, No Myalgias, No Joint Swelling Skin : No Skin Lesions, No rash Neuro : No Weakness, No Numbness, + Dizziness, No Headache Psych : No Anxiety/Panic, No Depression Heme/Lymph: + Bruising, No Lymphadenopathy Endocrine : No Polyuria, No Polydipsia All other systems reviewed and are negative. [facility] Past Medical History Medical History BPH (benign prostatic hyperplasia) COPD (chronic obstructive pulmonary disease) COPD (chronic obstructive pulmonary disease) HTN (hypertension) Hypoxemia Family History Family History Other CAD (coronary artery disease) Surgical History Surgical History H/O hernia repair Social History Social History Household Members: None Housing: Other Housing Other:: mobile home Do you presently have visiting nurse or other home services: No Alcohol intake: current Alcohol intake frequency: holidays/special occasions only Patient Tobacco Use Status: Former Tobacco user Quit Date: 15 years ago service: No Current occupational status: retired and disabled Meds Allergies Allergy/AdvReac Type Severity Reaction Status Date / Time No Known Allergies Allergy Verified 05/28/22 10:05 Active Medications: Current Medications Acetaminophen (Acetaminophen 325 Mg Tablet) 650 mg PO Q6H PRN PRN Reason: Pain, Mild (Pain Scale 1-3) Albuterol Sulfate (Albuterol Sulfate 90 Mcg 8 Gm Inhaler) 1 puff INHALE QID PRN PRN Reason: sob Albuterol/Ipratropium (Albuterol/Iprat 2.5/0.5mg 3 Ml Ampul.Neb) 3 ml INHALE RQ4H WHILE AWAKE SHERLYN Albuterol/Ipratropium (Albuterol/Iprat 2.5/0.5mg 3 Ml Ampul.Neb) 3 ml INHALE Q4H PRN PRN Reason: Wheezing Fluticasone/Umeclidinium/Vilanterol (Fluticasone/Umeclidinium/Vilanterol 200/62.5/25 Blst.W.Dev) 1 puff INHALE RDAILY [place]ER[facility]N Melatonin (Melatonin 3 Mg Tablet) 6 mg PO BEDTIME PRN PRN Reason: Insomnia Ondansetron HCl (Ondansetron Hcl 4 Mg/2 Ml Vial) 4 mg IVPUSH Q8H PRN PRN Reason: Nausea and Vomiting Pantoprazole Sodium (Pantoprazole Sodium 40 Mg/10 Ml Vial) 40 mg IVPUSH BID@0630,1630 [facility] Last Admin: 10/19/22 05:56 Dose: 40 mg Pharmacy Consult (Consult Rx Perform Med Rec) 1 each MISCELLANE ONCE PRN PRN Reason: Consult order Sodium Chloride (0.9 % Sodium Chloride Flush 3 Ml Syringe) 3 ml IVFLUSH QSHIFT [facility] Last Admin: 10/19/22 00:18 Dose: 3 ml Home Medications Medication Instructions Recorded Confirmed Last Taken Type lisinopril 10 mg tablet 1 tab PO DAILY 06/08/20 10/18/22 04/28/22 09:00 History pravastatin 40 mg tablet 1 tab PO DAILY 06/08/20 10/18/22 04/28/22 09:00 History aspirin 81 mg chewable tablet 1 tab PO DAILY 04/29/22 10/18/22 04/28/22 09:00 History fluticasone fur. 200 mcg-umeclid 1 puff inhalation DAILY 04/29/22 10/18/22 04/28/22 09:00 History 62.5 mcg-vilant 25 mcg inhalat.powder (Trelegy Ellipta) Physical Exam Vital Signs: Vital Signs: Last Vital Signs Temp 98.2 F 10/19/22 03:41 Pulse 87 10/19/22 03:41 Resp 18 10/19/22 03:41 BP 92/57 L 10/19/22 03:41 Pulse Ox 95 10/19/22 03:41 O2 Del Method Oxymask 10/19/22 03:41 O2 Flow Rate 10 10/19/22 03:41 Oxygen Flow Rate 6 10/18/22 18:31 BMI result Body Mass Index 29.3 EXAM: GENERAL: The patient is frail, bruises on arms, wearing O2 VITAL SIGNS:see workflow HEENT: Nonicteric sclerae, PERRLA, EOMI. Oropharynx clear. Moist mucous membranes. Conjunctivae appear pale. No thyroid mass. CHEST: Chest wall is nontender. HEART: Regular rate and rhythm without murmurs. LUNGS: Clear to auscultation bilaterally. Reduced air entry both sides ABDOMEN: Soft, positive bowel sounds, nontender, no organomegaly.no flank tenderness SKIN: No rash, no excessive bruising, petechiae, or purpura. NEUROLOGIC: Cranial nerves II-XII intact without motor/sensory deficit. Psych: Appearance: grossly normal Results Labs 10/18/22 19:35 10/18/22 19:05 Labs: Short CBC 10/18/22 10/18/22 Range/Units 19:05 19:35 WBC 8.5 (4.8-10.8) X10*3/uL Hgb 6.8 L* D 7.1 L (14.0-18.0) g/dl Hct 27.7 L D 29.1 L (42.0-52.0) % Plt Count 287 (160-400) X10*3/uL BMP 10/18/22 19:05 Sodium 138 Potassium 4.7 Chloride 108 Carbon Dioxide 19 L BUN 60 H Creatinine 1.56 H Calcium 8.8 Liver Function 10/18/22 Range/Units 19:05 Total Bilirubin 1.6 H (0.0-1.0) mg/dL AST 71 H (5-37) U/L ALT 94 H (0-40) U/L Alkaline Phosphatase 79 (39-117) U/L Albumin 3.0 L (3.5-5.0) g/dL Imaging CT scan - abdomen: My impression: aneurysm noted, emphysema, spondylosis Assessment and Plan (1) Acute on chronic anemia: Status: Acute Plan 1/ Acute in chronic anemia, may be due to eliquis and mucosal blood losses, no overt GI bleeding thus far,ddx: hemolysis, ACD PLAN: 1/ He was offered endoscopic assessement to r/o other causes such as PUD, neoplasia but he refuses this 2/ conservative rx, check iron, folate, b12, PPI and iron replacement 3/ consider lowering dose of eliquis in the longer run Time Spent With Patient Time: Total time managing care of this patient today ____ minutes. Procedures Date of Service Date of Service: 10/19/22
[2022-10-19 06:24] LABS: Basophils Absolute Auto 0.1 X10*3/uL (0.0-0.2); Eosinophils Absolute Auto 0.2 X10*3/uL (0.0-0.4); Eosinophils Percent Auto 1.6 % (0-4); Hematocrit 25.4 % (42.0-52.0); Imm Gran Abs Auto 0.07 X10*3/uL (0.00-0.03); Imm Gran Pct Auto 0.8 % (0.0-0.4); Lymphocytes Absolute Auto 0.9 X10*3/uL (1.2-4.9); Lymphocytes Percent Auto 9.2 % (20-40); Mean Corpuscular Hemoglobin 18.6 pg (27.0-33.0); Mean Corpuscular Volume 71.8 fL (80.0-98.0); Mean Platelet Volume 11.1 fL (9.4-12.4); Monocytes Absolute Auto 1.1 X10*3/uL (0.1-1.2); Monocytes Percent Auto 11.6 % (2-11); Neutrophils Percent Auto 75.8 % (45-73); Platelet Count 233 X10*3/uL (160-400); Red Blood Count 3.54 X10*6/uL (4.60-5.80); Red Cell Distribution Width 24.3 % (11.0-16.0); White Blood Count 9.3 X10*3/uL (4.8-10.8)
[2022-10-19 06:26] LABS: NRBC Pct Auto 3.1 /100WBC (0.0-0.2)
[2022-10-19 06:30] LABS: Hemoglobin 6.6 g/dl (14.0-18.0)
[2022-10-19 06:35] LABS: Prothrombin Time 76.6 SEC (10.0-13.1)
[2022-10-19 06:37] LABS: Alanine Aminotransferase 80 U/L (0-40); Albumin Level 3.4 g/dL (3.5-5.0); Alkaline Phosphatase 60 U/L (39-117); Anion Gap 15 (12-20); Aspartate Amino Transferase 53 U/L (5-37); Bilirubin Total 4.1 mg/dL (0.0-1.0); Blood Urea Nitrogen 62 mg/dL (9-16); Calcium 8.9 mg/dL (8.4-10.2); Carbon Dioxide 20 mmol/L (22-29); Chloride 111 mmol/L (96-108); Creatinine Clr Calc Pharmacy 50.3; Estimated Glomerular Filt Rate 52; Glucose Random 87 mg/dL (60-115); Potassium 4.2 mmol/L (3.3-5.1); Sodium 142 mmol/L (135-145); Total Protein 5.6 g/dL (6.5-8.0)
[2022-10-19 06:50] LABS: INTERNATIONAL NORM RATIO 6.2 (0.9-1.1)
[2022-10-19] MEDS: Acetaminophen 325 MG TABLET 650 MG PO (08:07)
[2022-10-19] MEDS: Albuterol/Iprat 2.5/0.5MG 3 ML AMPUL.NEB INHALE ×2 (08:36→19:03)
--- NOTE | 2022-10-19 08:52 | MHC.CM.PN ---
IMM 10/19/22 DELIVERED TO BEDSIDE, EMR REVIEWED, CM MET W/PT WHO REPORTS HE LIVES ON HIS OWN, DENIES USE OF DME EXCEPT HOME O2 AND REPORTS HE IS ON 6L CONT, PT HAS A CLEANING LADY EVERY SATURDAY AND FRIEND/HCP SISSY ASSISTS PT AND BRINGS PT TO APPT'S/ETC. PT REPORTS HE IS OPEN TO VNA SERVICES IF RECOMMENDED. PT VERIFIES PCP IS POLLY ARRIAGA, FULLY VACC'D AGAINST COVID19 AND HCP IS SISSY CHAUDHARY, NUMBER ON FILE FOUND IN PREVIOUS ADMIT, PLACED ON CHART AND UPLOADED TO [facility] FOR THIS ADMISSION. ANTIC D/C HOME W/RESUMP OF CLEANING LADY/FRIEND FOR ASSIST AND FRIEND/HCP [facility] FOR TRANSPORT
[2022-10-19 09:32] LABS: Immature Retic Fraction 36.9 % (2.3-13.4); Retic HGB Equivalent 16.1 pg (30.0-35.0); Reticulocyte Percent 2.7 % (0.5-1.8); Reticulocytes Absolute 0.095 X10*6/uL (0.026-0.095); SCAN SMEAR FLAG 1
[2022-10-19 09:35] LABS: MANUAL DIFF FLAG NO
--- NOTE | 2022-10-19 09:56 | PM.CNGS ---
History of Present Illness Consult details Consult date: 10/19/22 Reason for consult: other (AAA without rupture) Narrative: Pleasant 72-year-old gentleman presents to the hospital for workup regarding anemia and shortness of breath. He presented to the emergency room with a near syncopal episode and couple of falls over the past few weeks. He reported that he was dizzy and lightheaded. He has had an admission in April regarding AFib and exacerbation of his Congestive heart failure. At the current time he is resting relatively comfortable. Patient reports that he is on 6 L of oxygen at home. He was being transfused for his anemia. He had undergone CT scan of chest abdomen and pelvis in the emergency room and an incidental finding was made of a 6.1 cm aneurysm. He reports that he never knew about this and this is the 1st time he has heard about this. Upon discussion with him he quit smoking about 15 years ago but at that time he was smoking 3-4 packs daily. Review of Systems Review of Systems: Yes all other systems are reviewed and are negative Constitutional: Constitutional: Reports no additional constitutional complaints ENT: Reports Normal hearing present Cardiovascular: Cardiovascular: Denies chest pain, Denies chest pain at rest, Denies chest pain with activity, Denies pedal edema, Reports dyspnea and Reports dyspnea on exertion Respiratory: Respiratory: Reports cough, Reports dyspnea and Reports dyspnea on exertion Gastrointestinal: Gastrointestinal: Denies abdominal pain Musculoskeletal: Musculoskeletal: Denies abnormal gait, Denies muscle cramps and Denies radiating pain into limb Integumentary/Breasts: Skin/Breast: Denies skin ulcer and Denies wounds Neurologic: Reports Normal hearing present and Denies abnormal gait Psychiatric: Psychiatric: Reports no additional psychiatric complaints [facility] Past Medical History Medical History BPH (benign prostatic hyperplasia) COPD (chronic obstructive pulmonary disease) COPD (chronic obstructive pulmonary disease) HTN (hypertension) Hypoxemia Family History Family History Other CAD (coronary artery disease) Surgical History Surgical History H/O hernia repair Social History Social History Household Members: None Housing: Other Housing Other:: mobile home Do you presently have visiting nurse or other home services: No Alcohol intake: current Alcohol intake frequency: holidays/special occasions only Patient Tobacco Use Status: Former Tobacco user Quit Date: 15 years ago service: No Current occupational status: retired and disabled Meds Allergies Allergy/AdvReac Type Severity Reaction Status Date / Time No Known Allergies Allergy Verified 05/28/22 10:05 Active Medications: Current Medications Acetaminophen (Acetaminophen 325 Mg Tablet) 650 mg PO Q6H PRN PRN Reason: Pain, Mild (Pain Scale 1-3) Last Admin: 10/19/22 08:07 Dose: 650 mg Albuterol Sulfate (Albuterol Sulfate 90 Mcg 8 Gm Inhaler) 1 puff INHALE QID PRN PRN Reason: sob Albuterol/Ipratropium (Albuterol/Iprat 2.5/0.5mg 3 Ml Ampul.Neb) 3 ml INHALE RQ4H WHILE AWAKE [facility] Last Admin: 10/19/22 08:36 Dose: 3 ml Albuterol/Ipratropium (Albuterol/Iprat 2.5/0.5mg 3 Ml Ampul.Neb) 3 ml INHALE Q4H PRN PRN Reason: Wheezing Fluticasone/Umeclidinium/Vilanterol (Fluticasone/Umeclidinium/Vilanterol 200/62.5/25 Blst.W.Dev) 1 puff INHALE RDAILY [facility] Last Admin: 10/19/22 08:37 Dose: Not Given Melatonin (Melatonin 3 Mg Tablet) 6 mg PO BEDTIME PRN PRN Reason: Insomnia Ondansetron HCl (Ondansetron Hcl 4 Mg/2 Ml Vial) 4 mg IVPUSH Q8H PRN PRN Reason: Nausea and Vomiting Pantoprazole Sodium (Pantoprazole Sodium 40 Mg/10 Ml Vial) 40 mg IVPUSH BID@0630,1630 [facility] Last Admin: 10/19/22 05:56 Dose: 40 mg Pharmacy Consult (Consult Rx Perform Med Rec) 1 each MISCELLANE ONCE PRN PRN Reason: Consult order Sodium Chloride (0.9 % Sodium Chloride Flush 3 Ml Syringe) 3 ml IVFLUSH QSHIFT [facility] Last Admin: 10/19/22 07:50 Dose: 3 ml Home Medications Medication Instructions Recorded Confirmed Last Taken Type lisinopril 10 mg tablet 1 tab PO DAILY 06/08/20 10/18/22 04/28/22 09:00 History pravastatin 40 mg tablet 1 tab PO DAILY 06/08/20 10/18/22 04/28/22 09:00 History aspirin 81 mg chewable tablet 1 tab PO DAILY 04/29/22 10/18/22 04/28/22 09:00 History fluticasone fur. 200 mcg-umeclid 1 puff inhalation DAILY 04/29/22 10/18/22 04/28/22 09:00 History 62.5 mcg-vilant 25 mcg inhalat.powder (Trelegy Ellipta) Physical Exam Vital Signs: Vital Signs: Last Vital Signs Temp 97.5 F 10/19/22 08:11 Pulse 78 10/19/22 08:38 Resp 16 10/19/22 08:38 BP 92/50 L 10/19/22 08:11 Pulse Ox 98 10/19/22 07:26 O2 Del Method Oxymask 10/19/22 07:26 O2 Flow Rate 10 10/19/22 07:26 Oxygen Flow Rate 6 10/18/22 18:31 BMI result Body Mass Index 29.3 Const: General: cooperative, healthy appearing and comfortable Orientation/consciousness: oriented to person, oriented to place and oriented to time HEENT: Head: Yes normal to inspection Neck: Neck: Yes normal visual inspection Carotids: no bruits Chest: Chest palpation & inspection: normal inspection of the chest Resp: Effort & Inspection: normal respiratory effort and able to speak in complete sentences Auscultation: clear to auscultation bilaterally, no crackles, no rales, no rhonchi and no wheezes Cardio: Rate: regular rate Rhythm: regular rhythm Heart sounds: S1 normal heart sound present and S2 normal heart sound present Bruits: no carotid bruits Peripheral pulses: Peripheral pulses 2+ throughout GI: Other: Obvious pulsatile mass. No other abdominal incisions noted. Palpation (GI): Pulsatile mass present Skin: Wounds: no wounds Hair: normal Neuro: General: oriented to person, oriented to place and oriented to time Cranial nerves: Yes CN's II-XII intact bilaterally and Yes Normal hearing present Cognition (Neuro): normal cognition Motor exam (neuro): 5/5 motor strength present throughout Extrem: Other: venous exam: No significant superficial varicosities or spider telangiectasias, minimal edema General: No clubbing, No cyanosis and No edema Psych: Appearance: grossly normal Mental Status: mental status grossly normal Speech and movement: Normal speech and movement present Results Labs 10/19/22 05:52 10/19/22 05:52 Labs: Abnormal lab results 10/18/22 10/18/22 10/18/22 Range/Units 19:02 19:05 19:05 RBC 4.01 L D (4.60-5.80) X10*6/uL Hgb 6.8 L* D (14.0-18.0) g/dl Hct 27.7 L D (42.0-52.0) % MCV 69.1 L (80.0-98.0) fL MCH 17.0 L (27.0-33.0) pg MCHC 24.5 L (31.0-36.0) g/dl RDW 23.9 H (11.0-16.0) % Immature Gran % (Auto) (0.0-0.4) % Neut % (Auto) 77.0 H (45-73) % Lymph % (Auto) 11.8 L (20-40) % [place] % (Auto) (2-11) % Lymph # (Auto) 1.0 L (1.2-4.9) X10*3/uL Abs Immat Gran (auto) (0.00-0.03) X10*3/uL Absolute Nucleated RBC 0.200 H (0.0-0.012) X10*3/uL Nucleated RBC % (auto) 2.4 H (0.0-0.2) /100WBC Percent Retic (0.5-1.8) % Immature Retic Fraction (2.3-13.4) % Retic Hgb Equivalent (30.0-35.0) pg PT (10.0-13.1) SEC INR (0.9-1.1) VBG pH (7.32-7.43) VBG HCO3 (22-26) mmol/L Chloride (96-108) mmol/L Carbon Dioxide 19 L (22-29) mmol/L BUN 60 H (9-16) mg/dL Creatinine 1.56 H (0.5-1.4) mg/dL Lactic Acid 2.3 H* (0.5-2.0) mmol/L Lactic Acid F/U @ 2Hr (0.5-2.0) mmol/L Total Bilirubin 1.6 H (0.0-1.0) mg/dL AST 71 H (5-37) U/L ALT 94 H (0-40) U/L B-Natriuretic Peptide (<100) pg/mL Total Protein 5.8 L (6.5-8.0) g/dL Albumin 3.0 L (3.5-5.0) g/dL Crossmatch 10/18/22 10/18/22 10/18/22 Range/Units 19:05 19:05 19:11 RBC (4.60-5.80) X10*6/uL Hgb (14.0-18.0) g/dl Hct (42.0-52.0) % MCV (80.0-98.0) fL MCH (27.0-33.0) pg MCHC (31.0-36.0) g/dl RDW (11.0-16.0) % Immature Gran % (Auto) (0.0-0.4) % Neut % (Auto) (45-73) % Lymph % (Auto) (20-40) % [place] % (Auto) (2-11) % Lymph # (Auto) (1.2-4.9) X10*3/uL Abs Immat Gran (auto) (0.00-0.03) X10*3/uL Absolute Nucleated RBC (0.0-0.012) X10*3/uL Nucleated RBC % (auto) (0.0-0.2) /100WBC Percent Retic (0.5-1.8) % Immature Retic Fraction (2.3-13.4) % Retic Hgb Equivalent (30.0-35.0) pg PT 85.3 H (10.0-13.1) SEC INR 6.9 H* D (0.9-1.1) VBG pH 7.46 H (7.32-7.43) VBG HCO3 20 L (22-26) mmol/L Chloride (96-108) mmol/L Carbon Dioxide (22-29) mmol/L BUN (9-16) mg/dL Creatinine (0.5-1.4) mg/dL Lactic Acid (0.5-2.0) mmol/L Lactic Acid F/U @ 2Hr (0.5-2.0) mmol/L Total Bilirubin (0.0-1.0) mg/dL AST (5-37) U/L ALT (0-40) U/L B-Natriuretic Peptide 2693 H (<100) pg/mL Total Protein (6.5-8.0) g/dL Albumin (3.5-5.0) g/dL Crossmatch 10/18/22 10/18/22 10/18/22 Range/Units 19:35 19:35 22:37 RBC (4.60-5.80) X10*6/uL Hgb 7.1 L (14.0-18.0) g/dl Hct 29.1 L (42.0-52.0) % MCV (80.0-98.0) fL MCH (27.0-33.0) pg MCHC (31.0-36.0) g/dl RDW (11.0-16.0) % Immature Gran % (Auto) (0.0-0.4) % Neut % (Auto) (45-73) % Lymph % (Auto) (20-40) % [place] % (Auto) (2-11) % Lymph # (Auto) (1.2-4.9) X10*3/uL Abs Immat Gran (auto) (0.00-0.03) X10*3/uL Absolute Nucleated RBC (0.0-0.012) X10*3/uL Nucleated RBC % (auto) (0.0-0.2) /100WBC Percent Retic (0.5-1.8) % Immature Retic Fraction (2.3-13.4) % Retic Hgb Equivalent (30.0-35.0) pg PT (10.0-13.1) SEC INR (0.9-1.1) VBG pH (7.32-7.43) VBG HCO3 (22-26) mmol/L Chloride (96-108) mmol/L Carbon Dioxide (22-29) mmol/L BUN (9-16) mg/dL Creatinine (0.5-1.4) mg/dL Lactic Acid (0.5-2.0) mmol/L Lactic Acid F/U @ 2Hr 2.9 H* (0.5-2.0) mmol/L Total Bilirubin (0.0-1.0) mg/dL AST (5-37) U/L ALT (0-40) U/L B-Natriuretic Peptide (<100) pg/mL Total Protein (6.5-8.0) g/dL Albumin (3.5-5.0) g/dL Crossmatch See Detail 10/19/22 10/19/22 10/19/22 Range/Units 05:52 05:52 05:52 RBC 3.54 L (4.60-5.80) X10*6/uL Hgb 6.6 L* (14.0-18.0) g/dl Hct 25.4 L (42.0-52.0) % MCV 71.8 L (80.0-98.0) fL MCH 18.6 L (27.0-33.0) pg MCHC 26.0 L (31.0-36.0) g/dl RDW 24.3 H (11.0-16.0) % Immature Gran % (Auto) 0.8 H (0.0-0.4) % Neut % (Auto) 75.8 H (45-73) % Lymph % (Auto) 9.2 L (20-40) % [place] % (Auto) 11.6 H (2-11) % Lymph # (Auto) 0.9 L (1.2-4.9) X10*3/uL Abs Immat Gran (auto) 0.07 H (0.00-0.03) X10*3/uL Absolute Nucleated RBC 0.290 H (0.0-0.012) X10*3/uL Nucleated RBC % (auto) 3.1 H (0.0-0.2) /100WBC Percent Retic 2.7 H (0.5-1.8) % Immature Retic Fraction 36.9 H (2.3-13.4) % Retic Hgb Equivalent 16.1 L (30.0-35.0) pg PT 76.6 H (10.0-13.1) SEC INR 6.2 H* (0.9-1.1) VBG pH (7.32-7.43) VBG HCO3 (22-26) mmol/L Chloride 111 H (96-108) mmol/L Carbon Dioxide 20 L (22-29) mmol/L BUN 62 H (9-16) mg/dL Creatinine (0.5-1.4) mg/dL Lactic Acid (0.5-2.0) mmol/L Lactic Acid F/U @ 2Hr (0.5-2.0) mmol/L Total Bilirubin 4.1 H (0.0-1.0) mg/dL AST 53 H (5-37) U/L ALT 80 H (0-40) U/L B-Natriuretic Peptide (<100) pg/mL Total Protein 5.6 L (6.5-8.0) g/dL Albumin 3.4 L (3.5-5.0) g/dL Crossmatch Short CBC 10/18/22 10/18/22 10/19/22 Range/Units 19:05 19:35 05:52 WBC 8.5 9.3 (4.8-10.8) X10*3/uL Hgb 6.8 L* D 7.1 L 6.6 L* (14.0-18.0) g/dl Hct 27.7 L D 29.1 L 25.4 L (42.0-52.0) % Plt Count 287 233 (160-400) X10*3/uL BMP 10/18/22 10/19/22 19:05 05:52 Sodium 138 142 Potassium 4.7 4.2 Chloride 108 111 H Carbon Dioxide 19 L 20 L BUN 60 H 62 H Creatinine 1.56 H 1.34 Calcium 8.8 8.9 Liver Function 10/18/22 10/19/22 Range/Units 19:05 05:52 Total Bilirubin 1.6 H 4.1 H (0.0-1.0) mg/dL AST 71 H 53 H (5-37) U/L ALT 94 H 80 H (0-40) U/L Alkaline Phosphatase 79 60 (39-117) U/L Albumin 3.0 L 3.4 L (3.5-5.0) g/dL All other labs normal. Imaging Additional studies: CT scan written report and images were reviewed and demonstrates a 6.1 cm abdominal aortic aneurysm without rupture. It is more saccular in nature. Assessment and Plan (1) AAA (abdominal aortic aneurysm) without rupture: Status: Acute Plan In short patient has an asymptomatic aortic aneurysm. The concern is it is on the larger side of 6.1 cm and would be in need repair. It appears to be amenable to endovascular repair the images have been sent out for 3D reconstruction. I would like the patient to stabilize prior to any intervention. I do think that we would be able to do this under spinal. We will require cardiac and pulmonary risk stratification. Thank you for allowing us to assist in this patient's care. If there are any questions or concerns please do not hesitate to contact us. Time Spent With Patient Time: Total time managing care of this patient today ____ minutes. Procedures Date of Service Date of Service: 10/19/22
[2022-10-19 10:08] LABS: Lactate Dehydrogenase 266 U/L (118-273)
--- NOTE | 2022-10-19 11:44 | PM.CNCAR ---
History of Present Illness History of Present Illness Date of Service: 10/19/22 Chief complaint: Dyspnea Narrative: This is a cardiology consultation regarding preoperative risk stratification. It seems that he may need GI procedures but according to GI note as well as from patient, he does not want any procedures done. Also, it seems that he was diagnosed with abdominal aortic aneurysm and that also needs preoperative consultation. 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 He has baseline COPD and is on supplemental oxygen at 6 L a minute. At the current time, he denies any complaints like angina. He is also not feeling short of breath but he is only resting. At home, he states he can walk short distances without any chest pain but does get short of breath. He does not go too much outside because of breathing issues. Review of Systems Review of Systems: Yes all other systems are reviewed and are negative Constitutional: Constitutional: Reports as per HPI and Reports no additional constitutional complaints Eyes: Eyes: Reports as per HPI and Denies no additional eye complaints ENT: Denies system reviewed and no additional complaints, except as documented and Reports as per HPI Cardiovascular: Cardiovascular: Reports as per HPI, Reports no additional cardiovascular complaints, Denies acrocyanosis, Denies cool extremities, Denies chest pain, Denies leg edema, Denies lightheadedness, Denies palpitations and Denies dyspnea Respiratory: Respiratory: Reports as per HPI, Denies no additional respiratory complaints and Denies dyspnea Gastrointestinal: Gastrointestinal: Reports as per HPI and Denies no additional gastrointestinal complaints Genitourinary: Genitourinary: Reports no additional male genitourinary complaints and Reports as per HPI Musculoskeletal: Musculoskeletal: Reports no additional musculoskeletal complaints and Reports as per HPI Integumentary/Breasts: Skin/Breast: Reports system reviewed and no additional complaints, except as docu Neurologic: Reports system reviewed and no additional complaints, except as documented and Reports as per HPI Psychiatric: Psychiatric: Reports no additional psychiatric complaints and Reports as per HPI Endocrine: Endocrine: Reports no additional endocrine complaints, Reports as per HPI and Denies palpitations Hematologic/Lymphatic: Hematologic/Lymphatic: Reports no additional hematologic/lymphatic complaints and Reports as per HPI Allergic/Immunologic: Allergic/Immunologic: Reports no additional allergic/immunologic complaints and Reports as per HPI [facility] Past Medical History Medical History BPH (benign prostatic hyperplasia) COPD (chronic obstructive pulmonary disease) COPD (chronic obstructive pulmonary disease) HTN (hypertension) Hypoxemia Family History Family History Other CAD (coronary artery disease) Surgical History Surgical History H/O hernia repair Social History Social History Household Members: None Housing: Other Housing Other:: mobile home Do you presently have visiting nurse or other home services: No Alcohol intake: current Alcohol intake frequency: holidays/special occasions only Patient Tobacco Use Status: Former Tobacco user Quit Date: 15 years ago service: No Current occupational status: retired and disabled Meds Allergies Allergy/AdvReac Type Severity Reaction Status Date / Time No Known Allergies Allergy Verified 05/28/22 10:05 Active Medications: Current Medications Acetaminophen (Acetaminophen 325 Mg Tablet) 650 mg PO Q6H PRN PRN Reason: Pain, Mild (Pain Scale 1-3) Last Admin: 10/19/22 08:07 Dose: 650 mg Albuterol Sulfate (Albuterol Sulfate 90 Mcg 8 Gm Inhaler) 1 puff INHALE QID PRN PRN Reason: sob Albuterol/Ipratropium (Albuterol/Iprat 2.5/0.5mg 3 Ml Ampul.Neb) 3 ml INHALE RQ4H WHILE AWAKE [facility] Last Admin: 10/19/22 08:36 Dose: 3 ml Albuterol/Ipratropium (Albuterol/Iprat 2.5/0.5mg 3 Ml Ampul.Neb) 3 ml INHALE Q4H PRN PRN Reason: Wheezing Fluticasone/Umeclidinium/Vilanterol (Fluticasone/Umeclidinium/Vilanterol 200/62.5/25 Blst.W.Dev) [address] [facility] Last Admin: 10/19/22 08:37 Dose: Not Given Melatonin (Melatonin 3 Mg Tablet) 6 mg PO BEDTIME PRN PRN Reason: Insomnia Ondansetron HCl (Ondansetron Hcl 4 Mg/2 Ml Vial) 4 mg IVPUSH Q8H PRN PRN Reason: Nausea and Vomiting Pantoprazole Sodium (Pantoprazole Sodium 40 Mg/10 Ml Vial) 40 mg IVPUSH BID@0630,1630 [facility] Last Admin: 10/19/22 05:56 Dose: 40 mg Pharmacy Consult (Consult Rx Perform Med Rec) 1 each MISCELLANE ONCE PRN PRN Reason: Consult order Sodium Chloride (0.9 % Sodium Chloride Flush 3 Ml Syringe) [address] [facility] Last Admin: 10/19/22 07:50 Dose: 3 ml Home Medications Medication Instructions Recorded Confirmed Last Taken Type lisinopril 10 mg tablet 1 tab PO DAILY 06/08/20 10/18/22 04/28/22 09:00 History pravastatin 40 mg tablet 1 tab PO DAILY 06/08/20 10/18/22 04/28/22 09:00 History aspirin 81 mg chewable tablet 1 tab PO DAILY 04/29/22 10/18/22 04/28/22 09:00 History fluticasone fur. 200 mcg-umeclid 1 puff inhalation DAILY 04/29/22 10/18/22 04/28/22 09:00 History 62.5 mcg-vilant 25 mcg inhalat.powder (Trelegy Ellipta) Physical Exam Vital Signs: Vital Signs: Last Vital Signs Temp 98.8 F 10/19/22 11:27 Pulse 88 10/19/22 11:27 Resp 18 10/19/22 11:27 BP 96/60 10/19/22 11:27 Pulse Ox 95 10/19/22 11:27 O2 Del Method Oxymask 10/19/22 11:27 O2 Flow Rate 10 10/19/22 11:27 Oxygen Flow Rate 6 10/18/22 18:31 BMI result Body Mass Index 29.3 Const: General: comfortable and no acute distress Orientation/consciousness: patient oriented x3 HEENT: Other: Unremarkable Head: Yes normal to inspection Neck: Neck: Yes normal visual inspection Chest: Chest palpation & inspection: normal inspection of the chest Resp: Auscultation: diminished lung sounds Cardio: Palpation: normal PMI Heart sounds: S1 normal heart sound present, S2 normal heart sound present, no gallops, no murmurs and no rubs GI: Palpation (GI): Soft to palpation Back/Spine/Pelvis: Other: unremarkable Skin: General skin exam: no rashes or lesions noted Neuro: General: patient oriented x3 Extrem: General: Yes normal to inspection Psych: Mental Status: mental status grossly normal Objective Labs and Meds 10/19/22 05:52 10/19/22 05:52 Lab results: Laboratory Results - last 24 hr 10/18/22 10/18/22 10/18/22 19:02 19:05 19:05 WBC 8.5 RBC 4.01 L D Hgb 6.8 L* D Hct 27.7 L D MCV 69.1 L MCH 17.0 L MCHC 24.5 L RDW 23.9 H Plt Count 287 MPV 10.0 Immature Gran % (Auto) 0.4 Neut % (Auto) 77.0 H Lymph % (Auto) 11.8 L [place] % (Auto) 8.8 Eos % (Auto) 1.2 Baso % (Auto) 0.8 Lymph # (Auto) 1.0 L [place] # (Auto) 0.8 Eos # (Auto) 0.1 Baso # (Auto) 0.1 Abs Immat Gran (auto) 0.03 Absolute Neuts (auto) 6.5 Absolute Nucleated RBC 0.200 H Nucleated RBC % (auto) 2.4 H Smear Tech's Comments VERIFIED Smear Path Review SEE NOTE Absolute Retic Percent Retic Immature Retic Fraction Retic Hgb Equivalent PT INR VBG pH VBG pCO2 VBG pO2 VBG HCO3 VBG O2 Saturation VBG Base Excess Sodium 138 Potassium 4.7 Chloride 108 Carbon Dioxide 19 L Anion Gap 16 BUN 60 H Creatinine 1.56 H Estim Creat Clear Calc 42.5 Estimated GFR 44 Random Glucose 93 Lactic Acid 2.3 H* Lactic Acid F/U @ 2Hr Lactic Acid F/U @ 4Hr Calcium 8.8 Total Bilirubin 1.6 H AST 71 H ALT 94 H Alkaline Phosphatase 79 Lactate Dehydrogenase Troponin I High Sens B-Natriuretic Peptide Total Protein 5.8 L Albumin 3.0 L Stool Occult Blood Blood Type Antibody Screen Crossmatch 10/18/22 10/18/22 10/18/22 19:05 19:05 19:05 WBC RBC Hgb Hct MCV MCH MCHC RDW Plt Count MPV Immature Gran % (Auto) Neut % (Auto) Lymph % (Auto) [place] % (Auto) Eos % (Auto) Baso % (Auto) Lymph # (Auto) [place] # (Auto) Eos # (Auto) Baso # (Auto) Abs Immat Gran (auto) Absolute Neuts (auto) Absolute Nucleated RBC Nucleated RBC % (auto) Smear Tech's Comments Smear Path Review Absolute Retic Percent Retic Immature Retic Fraction Retic Hgb Equivalent PT 85.3 H INR 6.9 H* D VBG pH VBG pCO2 VBG pO2 VBG HCO3 VBG O2 Saturation VBG Base Excess Sodium Potassium Chloride Carbon Dioxide Anion Gap BUN Creatinine Estim Creat Clear Calc Estimated GFR Random Glucose Lactic Acid Lactic Acid F/U @ 2Hr Lactic Acid F/U @ 4Hr Calcium Total Bilirubin AST ALT Alkaline Phosphatase Lactate Dehydrogenase Troponin I High Sens 28.9 D B-Natriuretic Peptide 2693 H Total Protein Albumin Stool Occult Blood Blood Type Antibody Screen Crossmatch 10/18/22 10/18/22 10/18/22 19:11 19:35 19:35 WBC RBC Hgb 7.1 L Hct 29.1 L MCV MCH MCHC RDW Plt Count MPV Immature Gran % (Auto) Neut % (Auto) Lymph % (Auto) [place] % (Auto) Eos % (Auto) Baso % (Auto) Lymph # (Auto) [place] # (Auto) Eos # (Auto) Baso # (Auto) Abs Immat Gran (auto) Absolute Neuts (auto) Absolute Nucleated RBC Nucleated RBC % (auto) Smear Tech's Comments Smear Path Review Absolute Retic Percent Retic Immature Retic Fraction Retic Hgb Equivalent PT INR VBG pH 7.46 H VBG pCO2 29 VBG pO2 62 VBG HCO3 20 L VBG O2 Saturation 89.0 VBG Base Excess -2.0 Sodium Potassium Chloride Carbon Dioxide Anion Gap BUN Creatinine Estim Creat Clear Calc Estimated GFR Random Glucose Lactic Acid Lactic Acid F/U @ 2Hr Lactic Acid F/U @ 4Hr Calcium Total Bilirubin AST ALT Alkaline Phosphatase Lactate Dehydrogenase Troponin I High Sens B-Natriuretic Peptide Total Protein Albumin Stool Occult Blood POSITIVE Blood Type Antibody Screen Crossmatch 10/18/22 10/18/22 10/19/22 19:35 22:37 00:49 WBC RBC Hgb Hct MCV MCH MCHC RDW Plt Count MPV Immature Gran % (Auto) Neut % (Auto) Lymph % (Auto) [place] % (Auto) Eos % (Auto) Baso % (Auto) Lymph # (Auto) [place] # (Auto) Eos # (Auto) Baso # (Auto) Abs Immat Gran (auto) Absolute Neuts (auto) Absolute Nucleated RBC Nucleated RBC % (auto) Smear Tech's Comments Smear Path Review Absolute Retic Percent Retic Immature Retic Fraction Retic Hgb Equivalent PT INR VBG pH VBG pCO2 VBG pO2 VBG HCO3 VBG O2 Saturation VBG Base Excess Sodium Potassium Chloride Carbon Dioxide Anion Gap BUN Creatinine Estim Creat Clear Calc Estimated GFR Random Glucose Lactic Acid Lactic Acid F/U @ 2Hr 2.9 H* Lactic Acid F/U @ 4Hr 1.4 Calcium Total Bilirubin AST ALT Alkaline Phosphatase Lactate Dehydrogenase Troponin I High Sens B-Natriuretic Peptide Total Protein Albumin Stool Occult Blood Blood Type A Positive Antibody Screen NEGATIVE Crossmatch See Detail 10/19/22 10/19/22 10/19/22 05:52 05:52 05:52 WBC 9.3 RBC 3.54 L Hgb 6.6 L* Hct 25.4 L MCV 71.8 L MCH 18.6 L MCHC 26.0 L RDW 24.3 H Plt Count 233 MPV 11.1 Immature Gran % (Auto) 0.8 H Neut % (Auto) 75.8 H Lymph % (Auto) 9.2 L [place] % (Auto) 11.6 H Eos % (Auto) 1.6 Baso % (Auto) 1.0 Lymph # (Auto) 0.9 L [place] # (Auto) 1.1 Eos # (Auto) 0.2 Baso # (Auto) 0.1 Abs Immat Gran (auto) 0.07 H Absolute Neuts (auto) 7.0 Absolute Nucleated RBC 0.290 H Nucleated RBC % (auto) 3.1 H Smear Tech's Comments Not Reportable Smear Path Review Absolute Retic 0.095 Percent Retic 2.7 H Immature Retic Fraction 36.9 H Retic Hgb Equivalent 16.1 L PT 76.6 H INR 6.2 H* VBG pH VBG pCO2 VBG pO2 VBG HCO3 VBG O2 Saturation VBG Base Excess Sodium 142 Potassium 4.2 Chloride 111 H Carbon Dioxide 20 L Anion Gap 15 BUN 62 H Creatinine 1.34 Estim Creat Clear Calc 50.3 Estimated GFR 52 Random Glucose 87 Lactic Acid Lactic Acid F/U @ 2Hr Lactic Acid F/U @ 4Hr Calcium 8.9 Total Bilirubin 4.1 H AST 53 H ALT 80 H Alkaline Phosphatase 60 Lactate Dehydrogenase 266 Troponin I High Sens B-Natriuretic Peptide Total Protein 5.6 L Albumin 3.4 L Stool Occult Blood Blood Type Antibody Screen Crossmatch ECG Interpretation: EKG with sinus rhythm; 74/Min; prolonged WA; incomplete bundle branch block; anterior ST depression that could be from RV strain. Not seen in the last sinus EKG from April. Imaging Radiologist's impression: Impressions Chest X-Ray 10/18/22 19:24 IMPRESSION: Enlarged cardiac silhouette. Increased interstitial markings greatest at the left lung base and question small left pleural effusion. Differential would include mild CHF and interstitial lung disease. Head CT 10/18/22 20:21 IMPRESSION: No acute intracranial pathology. Chronic right parietal lobe infarct. Abdomen/Pelvis CT 10/18/22 20:22 IMPRESSION: 1. No acute traumatic finding of the chest, abdomen, or pelvis. 2. Severe emphysema. Small right pleural effusion with associated atelectasis. 3. 6.1 cm infrarenal abdominal aortic aneurysm. Recommend referral to vascular specialist. Reference: J Am Aura Radiol 2013; 10 (10): 789-794. 4. Unchanged 0.6 cm right lower lobe nodules suggestive of benign etiology. Chest CT 10/18/22 20:23 IMPRESSION: 1. No acute traumatic finding of the chest, abdomen, or pelvis. 2. Severe emphysema. Small right pleural effusion with associated atelectasis. 3. 6.1 cm infrarenal abdominal aortic aneurysm. Recommend referral to vascular specialist. Reference: J Am Aura Radiol 2013; 10 (10): 789-794. 4. Unchanged 0.6 cm right lower lobe nodules suggestive of benign etiology. Assessment and Plan (1) Preoperative cardiovascular examination: Status: Acute (2) Acute on chronic anemia: Status: Acute (3) Chronic anticoagulation: Status: Acute (4) AAA (abdominal aortic aneurysm) without rupture: Status: Acute (5) Hypoxemia: Status: Acute (6) Atrial flutter: Status: Acute (7) Chronic right heart failure: Status: Acute Plan Echocardiogram April with LVEF of 65-70%. Severely dilated right ventricle. There is evidence of pulmonary hypertension as well as increased right heart pressures. Otherwise, labs reviewed. Hemoglobin is 6.6. In April, the last values 10.7 but he has had lower values before that. Troponin level is 28.9. Still within limits. Elevated cardiac BNP at 2693. In April it was 1317. CT scan shows severe emphysema. 6.1 cm infrarenal abdominal aortic aneurysm. Overall, with regard to the anemia and GI workup, may proceed as planned. His cardiac risk will be high. Additionally, he is also on high oxygen supplementation and that will be an additional risk. However, patient states he does not want procedures at all. 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 Risk will probably be high but will need to be reassessed closer to that time when he is more stable. Discussed with Alanna Lancaster. Time Spent With Patient Time: Total time managing care of this patient today ____ minutes. Procedures Date of Service Date of Service: 10/19/22
--- NOTE | 2022-10-19 13:31 | HO.PM.IMPN ---
Subjective Subjective Date of Service: 10/19/22 Interval History: seen and examined this morning follow up for dizziness, anemia pt reports intermittent dizziness for the past few weeks, mostly when walking around no sob, cough, abdominal pain. denies melena, hematuria; intermittent mild epistaxis but none recently Review of Systems Review of Systems: Yes all other systems are reviewed and are negative Constitutional Constitutional: Denies chills and Denies fever(s) ENT Ears, Nose, Mouth, and Throat: Reports dizziness Cardiovascular Cardiovascular: Denies chest pain, Denies palpitations and Denies dyspnea Respiratory Respiratory: Denies cough and Denies dyspnea Gastrointestinal Gastrointestinal: Denies abdominal pain, Denies diarrhea, Denies nausea and Denies vomiting Neurologic Neurologic: Reports dizziness Endocrine Endocrine: Denies palpitations Physical Exam Vital Signs: Vital Signs: Last Vital Signs Temp 98.8 F 10/19/22 11:27 Pulse 88 10/19/22 11:27 Resp 18 10/19/22 11:27 BP 96/60 10/19/22 11:27 Pulse Ox 95 10/19/22 11:27 O2 Del Method Oxymask 10/19/22 11:27 O2 Flow Rate 10 10/19/22 11:27 Oxygen Flow Rate 6 10/18/22 18:31 BMI result Body Mass Index 29.3 Const: General: comfortable, no acute distress, alert, awake and ill appearing Nutritional Appearance: overweight Orientation/consciousness: patient oriented x3 Resp: Other: diminished breath sounds Effort & Inspection: normal respiratory effort, able to speak in complete sentences, no respiratory distress and no use of accessory muscles Auscultation: no rales Cardio: Rate: regular rate Heart sounds: S1 normal heart sound present and S2 normal heart sound present GI: Inspection: No distended Palpation (GI): Soft to palpation and nontender Neuro: General: patient oriented x3, moves all extremities and CN's II-XI intact bilaterally Extrem: General: Yes no pedal edema Objective Data Active Medications Acetaminophen (Acetaminophen 325 Mg Tablet) 650 mg PO Q6H PRN PRN Reason: Pain, Mild (Pain Scale 1-3) Last Admin: 10/19/22 08:07 Dose: 650 mg Documented By: YOLA Albuterol Sulfate (Albuterol Sulfate 90 Mcg 8 Gm Inhaler) 1 puff INHALE QID PRN PRN Reason: sob Albuterol/Ipratropium (Albuterol/Iprat 2.5/0.5mg 3 Ml Ampul.Neb) 3 ml INHALE RQ4H WHILE AWAKE [facility] Last Admin: 10/19/22 12:30 Dose: Not Given Documented By: JOANN Non-Admin Reason: Patient Asleep Albuterol/Ipratropium (Albuterol/Iprat 2.5/0.5mg 3 Ml Ampul.Neb) 3 ml INHALE Q4H PRN PRN Reason: Wheezing Fluticasone/Umeclidinium/Vilanterol (Fluticasone/Umeclidinium/Vilanterol 200/62.5/25 Blst.W.Dev) 1 puff INHALE RDAILY [facility] Last Admin: 10/19/22 08:37 Dose: Not Given Documented By: SHMUEL Non-Admin Reason: pharmacy called, spoke with Seema Melatonin (Melatonin 3 Mg Tablet) 6 mg PO BEDTIME PRN PRN Reason: Insomnia Ondansetron HCl (Ondansetron Hcl 4 Mg/2 Ml Vial) 4 mg IVPUSH Q8H PRN PRN Reason: Nausea and Vomiting Pantoprazole Sodium (Pantoprazole Sodium 40 Mg/10 Ml Vial) 40 mg IVPUSH BID@0630,1630 [facility] Last Admin: 10/19/22 05:56 Dose: 40 mg Documented By: LARON Pharmacy Consult (Consult Rx Perform Med Rec) 1 each MISCELLANE ONCE PRN PRN Reason: Consult order Sodium Chloride (0.9 % Sodium Chloride Flush 3 Ml Syringe) 3 ml IVFLUSH QSHIFT [facility] Last Admin: 10/19/22 07:50 Dose: 3 ml Documented By: YOLA Labs 10/19/22 05:52 10/19/22 05:52 Labs: Laboratory Results - last 24 hr 10/18/22 10/18/22 10/18/22 19:02 19:05 19:05 MCV 69.1 L MCH 17.0 L MCHC 24.5 L RDW 23.9 H Plt Count 287 MPV 10.0 Immature Gran % (Auto) 0.4 Neut % (Auto) 77.0 H Lymph % (Auto) 11.8 L [place] % (Auto) 8.8 Eos % (Auto) 1.2 Baso % (Auto) 0.8 Lymph # (Auto) 1.0 L [place] # (Auto) 0.8 Eos # (Auto) 0.1 Baso # (Auto) 0.1 Abs Immat Gran (auto) 0.03 Absolute Neuts (auto) 6.5 Absolute Nucleated RBC 0.200 H Nucleated RBC % (auto) 2.4 H Smear Tech's Comments VERIFIED Smear Path Review SEE NOTE Absolute Retic Percent Retic Immature Retic Fraction Retic Hgb Equivalent PT INR VBG pH VBG pCO2 VBG pO2 VBG HCO3 VBG O2 Saturation VBG Base Excess Anion Gap 16 Estim Creat Clear Calc 42.5 Estimated GFR 44 Random Glucose 93 Lactic Acid 2.3 H* Lactic Acid F/U @ 2Hr Lactic Acid F/U @ 4Hr Calcium 8.8 Total Bilirubin 1.6 H AST 71 H ALT 94 H Alkaline Phosphatase 79 Lactate Dehydrogenase Troponin I High Sens B-Natriuretic Peptide Total Protein 5.8 L Albumin 3.0 L Stool Occult Blood Blood Type Antibody Screen Crossmatch 10/18/22 10/18/22 10/18/22 19:05 19:05 19:05 MCV MCH MCHC RDW Plt Count MPV Immature Gran % (Auto) Neut % (Auto) Lymph % (Auto) [place] % (Auto) Eos % (Auto) Baso % (Auto) Lymph # (Auto) [place] # (Auto) Eos # (Auto) Baso # (Auto) Abs Immat Gran (auto) Absolute Neuts (auto) Absolute Nucleated RBC Nucleated RBC % (auto) Smear Tech's Comments Smear Path Review Absolute Retic Percent Retic Immature Retic Fraction Retic Hgb Equivalent PT 85.3 H INR 6.9 H* D VBG pH VBG pCO2 VBG pO2 VBG HCO3 VBG O2 Saturation VBG Base Excess Anion Gap Estim Creat Clear Calc Estimated GFR Random Glucose Lactic Acid Lactic Acid F/U @ 2Hr Lactic Acid F/U @ 4Hr Calcium Total Bilirubin AST ALT Alkaline Phosphatase Lactate Dehydrogenase Troponin I High Sens 28.9 D B-Natriuretic Peptide 2693 H Total Protein Albumin Stool Occult Blood Blood Type Antibody Screen Crossmatch 10/18/22 10/18/22 10/18/22 19:11 19:35 19:35 MCV MCH MCHC RDW Plt Count MPV Immature Gran % (Auto) Neut % (Auto) Lymph % (Auto) [place] % (Auto) Eos % (Auto) Baso % (Auto) Lymph # (Auto) [place] # (Auto) Eos # (Auto) Baso # (Auto) Abs Immat Gran (auto) Absolute Neuts (auto) Absolute Nucleated RBC Nucleated RBC % (auto) Smear Tech's Comments Smear Path Review Absolute Retic Percent Retic Immature Retic Fraction Retic Hgb Equivalent PT INR VBG pH 7.46 H VBG pCO2 29 VBG pO2 62 VBG HCO3 20 L VBG O2 Saturation 89.0 VBG Base Excess -2.0 Anion Gap Estim Creat Clear Calc Estimated GFR Random Glucose Lactic Acid Lactic Acid F/U @ 2Hr Lactic Acid F/U @ 4Hr Calcium Total Bilirubin AST ALT Alkaline Phosphatase Lactate Dehydrogenase Troponin I High Sens B-Natriuretic Peptide Total Protein Albumin Stool Occult Blood POSITIVE Blood Type A Positive Antibody Screen NEGATIVE Crossmatch See Detail 10/18/22 10/19/22 10/19/22 22:37 00:49 05:52 MCV 71.8 L MCH 18.6 L MCHC 26.0 L RDW 24.3 H Plt Count 233 MPV 11.1 Immature Gran % (Auto) 0.8 H Neut % (Auto) 75.8 H Lymph % (Auto) 9.2 L [place] % (Auto) 11.6 H Eos % (Auto) 1.6 Baso % (Auto) 1.0 Lymph # (Auto) 0.9 L [place] # (Auto) 1.1 Eos # (Auto) 0.2 Baso # (Auto) 0.1 Abs Immat Gran (auto) 0.07 H Absolute Neuts (auto) 7.0 Absolute Nucleated RBC 0.290 H Nucleated RBC % (auto) 3.1 H Smear Tech's Comments Not Reportable Smear Path Review Absolute Retic 0.095 Percent Retic 2.7 H Immature Retic Fraction 36.9 H Retic Hgb Equivalent 16.1 L PT INR VBG pH VBG pCO2 VBG pO2 VBG HCO3 VBG O2 Saturation VBG Base Excess Anion Gap Estim Creat Clear Calc Estimated GFR Random Glucose Lactic Acid Lactic Acid F/U @ 2Hr 2.9 H* Lactic Acid F/U @ 4Hr 1.4 Calcium Total Bilirubin AST ALT Alkaline Phosphatase Lactate Dehydrogenase Troponin I High Sens B-Natriuretic Peptide Total Protein Albumin Stool Occult Blood Blood Type Antibody Screen Crossmatch 10/19/22 10/19/22 05:52 05:52 MCV MCH MCHC RDW Plt Count MPV Immature Gran % (Auto) Neut % (Auto) Lymph % (Auto) [place] % (Auto) Eos % (Auto) Baso % (Auto) Lymph # (Auto) [place] # (Auto) Eos # (Auto) Baso # (Auto) Abs Immat Gran (auto) Absolute Neuts (auto) Absolute Nucleated RBC Nucleated RBC % (auto) Smear Tech's Comments Smear Path Review Absolute Retic Percent Retic Immature Retic Fraction Retic Hgb Equivalent PT 76.6 H INR 6.2 H* VBG pH VBG pCO2 VBG pO2 VBG HCO3 VBG O2 Saturation VBG Base Excess Anion Gap 15 Estim Creat Clear Calc 50.3 Estimated GFR 52 Random Glucose 87 Lactic Acid Lactic Acid F/U @ 2Hr Lactic Acid F/U @ 4Hr Calcium 8.9 Total Bilirubin 4.1 H AST 53 H ALT 80 H Alkaline Phosphatase 60 Lactate Dehydrogenase 266 Troponin I High Sens B-Natriuretic Peptide Total Protein 5.6 L Albumin 3.4 L Stool Occult Blood Blood Type Antibody Screen Crossmatch Assessment and Plan (1) AAA (abdominal aortic aneurysm) without rupture: Status: Acute (2) SAYDA (acute kidney injury): Status: Acute (3) ABLA (acute blood loss anemia): Status: Acute Plan This is a 72-year-old male with a PMH significant for hx of atrial flutter on Eliquid, COPD, HFpEF, BPH, and HLD who presents to the ED with?worsening lightheadedness, dizziness, and history of recent falls for the past 2 weeks found to have acute on chronic hypoxic respiratory failure in the setting blood loss anemia. Acute on chronic hypoxic respiratory failure related to acute blood loss anemia chest CT without acute pulmonary changes - severe emphysema On 6 L home O2 at baseline, wean as tolerated continue home inhalers Acute blood loss anemia Stool occult positive continue IV protonix seen by GI - currently patient declines endoscopy continue clears Hold Eliquis, aspirin Supratherapeutic INR INR 6.9 at time of presentation Received 1 unit PRBCs 10/18, will transfuse additional unit Will hold Eliquis Repeat INR in the morning elevated LFTs CT showing normal liver on imaging GI consult follow LFTs HFpEF Patient's BNP elevated 2693, but does not appear fluid overloaded and no respiratory symptoms Patient received 60 mg of Lasix in ED Will hold on additional Lasix for now AAA CT of abdomen and pelvis found 6.1 cm infrarenal abdominal aortic aneurysm seen by Vascular surgery - outpatient follow up SAYDA Creatinine 1.56 at time of presentation. improved to 1.34 Likely secondary to blood loss Follow BMP avoid nephrotoxins Atrial flutter EKG showed sinus rhythm with first-degree AV block Hold Eliquis d/t anemia Hold digoxin, metoprolol d/t soft BP, resume as indicated BPH Continue tamsulosin HTN BP soft, hold all anti-hypertensives for now Resume as warranted HLD Hold statins d/t elevated LFTs DNR/DNI Attending:?Dr Miller DVT Prophylaxis: INR currently suprtherapeutic,boots due to GI bleeding Pt will require a hospitalization of at least two nights for treatment of?COPD and CHF exacerbations. Time Spent With Patient Time: Total time managing care of this patient today ____ minutes. Quality Stroke Does the patient have a stroke diagnosis?: No VTE Prior VTE?: No VTE Risk Level:: Medical - moderate - high VTE Device Contraindication: N/A - Device Ordered VTE Drug Contraindication: Treatment Not Indicated
--- NOTE | 2022-10-19 14:10 | PM.HEMONCCN ---
Subjective - Subjective Chief complaint: Weakness Patient: new to practice Consult date: 10/19/22 Requesting Physician: Alanna WILALRD Primary Care Provider: Altaf Campos MD Medical Summary: The HPI - Consult Narrative Reason for consult: Anemia, GI bleeding Narrative: Jose Solis is a 72 year old male who was admitted on 10/18/2022 with complaints of dizziness and weakness and was found to have severe anemia with GI bleeding. Patient lives alone and apparently he had a couple of falls. Fall he he has been on Eliquis, he is unsure why. He has chronic COPD and is on oxygen at home. In the ED patient was afebrile but tachypneic. Labs were significant for H&H of 6.8/27.7, INR 6.9, BUN of 60, creatinine 1.56, lactic acid 2.3, hyperbilirubinemia of 1.6, AST of 71, ALT 94, BNP of 2693, albumin 3.0. Stool positive for occult blood. CXR showed possible small left pleural effusion with increased interstitial markings, suggestive of mild CHF or interstitial lung disease. CT of chest and abdomen/pelvis found no acute traumatic finding of chest, abdomen, or pelvis, but did show severe emphysema with small right pleural effusion with associated atelectasis. Also found 6.1 cm infrarenal abdominal aortic aneurysm, and unchanged 0.6 cm right lower lobe nodules suggestive of benign etiology. CT of head showed no acute intracranial pathology with chronic right parietal lobe infarct. Patient is having melanotic bowel movements. He has received 3 units blood transfusion. Hematology consultation has been called about has coagulopathy. His INR in April 2022 was 1.4 to 2.1. He was started on anticoagulation only after last admission in April 2022. Review of Systems - Constitutional Reports as per HPI, Reports fatigue, Reports malaise, Reports poor appetite - Neurologic Reports no additional neurologic complaints, Reports as per HPI, Reports hearing normal, Denies abnormal gait, Reports dizziness PMFSH Medical History: Medical History (Last Reviewed 10/19/22 @ 04:32 by Hortencia Ayala RN) BPH (benign prostatic hyperplasia) COPD (chronic obstructive pulmonary disease) COPD (chronic obstructive pulmonary disease) HTN (hypertension) Hypoxemia Family History: Family History (Last Reviewed 10/18/22 @ 22:30 by SUDHEER Torres) Other CAD (coronary artery disease) Surgical History: Surgical History (Last Reviewed 10/19/22 @ 04:32 by Hortencia Ayala RN) H/O hernia repair Social History: Social History (Last Reviewed 10/18/22 @ 22:30 by SUDHEER Torres) Living Situation History: Household Members: None Housing: Other Housing Other:: mobile home Do you presently have visiting nurse or other home services: No Tobacco History: Patient Tobacco Use Status: Former Tobacco user Smoke Quit Date: 15 years ago Occupation Assessmet: service: No Current occupational status: retired Current occupational status: disabled Home Medications and Allergies Current Medications: Current Medications Acetaminophen (Acetaminophen 325 Mg Tablet) 650 mg PO Q6H PRN PRN Reason: Pain, Mild (Pain Scale 1-3) Last Admin: 10/19/22 08:07 Dose: 650 mg Albuterol Sulfate (Albuterol Sulfate 90 Mcg 8 Gm Inhaler) 1 puff INHALE QID PRN PRN Reason: sob Albuterol/Ipratropium (Albuterol/Iprat 2.5/0.5mg 3 Ml Ampul.Neb) 3 ml INHALE RQ4H WHILE AWAKE [facility] Last Admin: 10/19/22 12:30 Dose: Not Given Albuterol/Ipratropium (Albuterol/Iprat 2.5/0.5mg 3 Ml Ampul.Neb) 3 ml INHALE Q4H PRN PRN Reason: Wheezing Fluticasone/Umeclidinium/Vilanterol (Fluticasone/Umeclidinium/Vilanterol 200/62.5/25 Blst.W.Dev) 1 puff INHALE RDAILY [facility] Last Admin: 10/19/22 08:37 Dose: Not Given Melatonin (Melatonin 3 Mg Tablet) 6 mg PO BEDTIME PRN PRN Reason: Insomnia Ondansetron HCl (Ondansetron Hcl 4 Mg/2 Ml Vial) 4 mg IVPUSH Q8H PRN PRN Reason: Nausea and Vomiting Pantoprazole Sodium (Pantoprazole Sodium 40 Mg/10 Ml Vial) 40 mg IVPUSH BID@0630,1630 [facility] Last Admin: 10/19/22 05:56 Dose: 40 mg Pharmacy Consult (Consult Rx Perform Med Rec) 1 each MISCELLANE ONCE PRN PRN Reason: Consult order Sodium Chloride (0.9 % Sodium Chloride Flush 3 Ml Syringe) 3 ml IVFLUSH QSHIFT [facility] Last Admin: 10/19/22 07:50 Dose: 3 ml Home Medications Medication Instructions Recorded Confirmed Type lisinopril 10 mg tablet 1 tab PO DAILY 06/08/20 10/18/22 History pravastatin 40 mg tablet 1 tab PO DAILY 06/08/20 10/18/22 History aspirin 81 mg chewable tablet 1 tab PO DAILY 04/29/22 10/18/22 History fluticasone fur. 200 mcg-umeclid 1 puff inhalation DAILY 04/29/22 10/18/22 History 62.5 mcg-vilant 25 mcg inhalat.powder (Trelegy Ellipta) Allergies Allergy/AdvReac Type Severity Reaction Status Date / Time No Known Allergies Allergy Verified 05/28/22 10:05 Physical Exam Vital signs: Vital Signs Temp 97.9 F 10/19/22 13:54 Pulse 95 10/19/22 13:54 Resp 18 10/19/22 11:27 BP 89/56 L 10/19/22 13:54 Pulse Ox 94 10/19/22 13:54 O2 Del Method Oxymask 10/19/22 13:54 O2 Flow Rate 9 10/19/22 13:54 Intake & Output 10/18/22 10/19/22 10/19/22 18:59 06:59 18:59 Intake Total 1536.667 / 1536.667 350 / 350 Output Total 2650 / 2650 Balance -1113.333 / -1113.333 350 / 350 Urine Output (Average ml/kg/hr) 2.60 2.60 Intake: Intake (Blood Product) Amount 350 / 350 350 / 350 Red Blood Cells (E0382) Unit 350 / 350 [id number] Red Blood Cells (E0382) Unit 350 / 350 [id number] Intake, IV Amount 1186.667 / 1186.667 0.9 % Sodium Chloride 1,000 ml 1000 / 1000 @ 999 mls/hr IV .Q1H1M [facility] Rx#: [id number] Albumin Human 25 % 100 ml @ 100 186.667 / 186.667 mls/hr IV Q1H [facility] Rx#: [id number] Output: Output, Urine Amount 1050 / 1050 Output, Urine Amount (Catheter) 1600 / 1600 Bishop 1600 / 1600 Other: Urine Color Yellow Last Bowel Movement 10/18/22 Weight 82 kg 84.9 kg [place] Weight in Grams 52422 Weight 84.9 kg - Constitutional Present: mild distress, disheveled - Routine HEENT Exam Head: Present: normal inspection Eye: Present: conjunctivae pale, PERRL - Routine Neck Exam Present: supple - Routine Respiratory Exam Present: decreased breath sounds - Routine Cardiovascular Exam Cardiovascular: Present: S1, S2 - Routine Abdominal Exam Present: soft Hem/Onc Consult Result - Labs CBC & Chem 7: 10/19/22 05:52 10/19/22 05:52 Labs: Short CBC 10/18/22 10/18/22 10/19/22 Range/Units 19:05 19:35 05:52 WBC 8.5 9.3 (4.8-10.8) X10*3/uL Hgb 6.8 L* D 7.1 L 6.6 L* (14.0-18.0) g/dl Hct 27.7 L D 29.1 L 25.4 L (42.0-52.0) % Plt Count 287 233 (160-400) X10*3/uL BMP 10/18/22 10/19/22 19:05 05:52 Sodium 138 142 Potassium 4.7 4.2 Chloride 108 111 H Carbon Dioxide 19 L 20 L BUN 60 H 62 H Creatinine 1.56 H 1.34 Calcium 8.8 8.9 Liver Function 10/18/22 10/19/22 Range/Units 19:05 05:52 Total Bilirubin 1.6 H 4.1 H (0.0-1.0) mg/dL AST 71 H 53 H (5-37) U/L ALT 94 H 80 H (0-40) U/L Alkaline Phosphatase 79 60 (39-117) U/L Albumin 3.0 L 3.4 L (3.5-5.0) g/dL Assessment and Plan Patient Active problem list reviewed?: Yes (1) Anemia Status: Acute Assessment and plan: 1. This is a 72-year-old male with multiple medical problems including COPD, HFpEF,, atrial flutter, chronic respiratory failure who is admitted for severe anemia secondary to GI bleeding. He is coagulopathic, INR was over 6. Eliquis can raise INR but not to this extent. He has been mildly coagulopathic at baseline, he probably has liver disease causing coagulopathy. Rule out DIC. His kidney functions improved with IV hydration. His platelet counts are normal. He has received 3 units PRBC. He continues to have large melanotic bowel movements. I recommend vitamin K and prothrombin complex concentrate, Kcentra which can be used for severe bleeding associated with Eliquis. Dose is 2000 units or 25 to 50 units/kg administered once. Continue with supportive care, blood transfusion as needed. GI is planning endoscopy soon. I will follow with you, thank you for the consultation. - Time Spent With Patient Time Spent with Patient (in minutes): 15
[2022-10-19 15:27] LABS: Bilirubin Direct 1.1 mg/dL (0.0-0.5)
[2022-10-19 15:53] LABS: Fibrinogen 359 MG/DL (259-690); Partial Thromboplastin Time 35.6 SEC (26.0-36.4)
--- NOTE | 2022-10-19 16:12 | PM.GIPN ---
Subjective Subjective Date of Service: 10/19/22 Critical Care Time (minutes): 0 Comment: pt seen and evaluated at bedside for multiple frankly bloody BMs this afternoon. Reports improvement in lightheadedness. No abd pain, N,V. Physical Exam Vital Signs: Vital Signs: Last Vital Signs Temp 98.0 F 10/19/22 15:26 Pulse 94 10/19/22 15:26 Resp 20 10/19/22 15:09 BP 104/64 10/19/22 15:26 Pulse Ox 94 10/19/22 13:54 O2 Del Method Oxymask 10/19/22 13:54 O2 Flow Rate 9 10/19/22 13:54 Oxygen Flow Rate 6 10/18/22 18:31 BMI result Body Mass Index 29.3 gen appear: pale and ill appearing chest: dyspneic face mask with 9L O2 requirement abd: soft, nontender, mildly distended rectal: deferred, pt had just had a large maroon liquidy BM Objective Data Labs 10/19/22 14:46 10/19/22 05:52 Labs: Laboratory Results - last 24 hr 10/18/22 10/18/22 10/18/22 19:02 19:05 19:05 WBC 8.5 RBC 4.01 L D Hgb 6.8 L* D Hct 27.7 L D MCV 69.1 L MCH 17.0 L MCHC 24.5 L RDW 23.9 H Plt Count 287 MPV 10.0 Immature Gran % (Auto) 0.4 Neut % (Auto) 77.0 H Lymph % (Auto) 11.8 L [place] % (Auto) 8.8 Eos % (Auto) 1.2 Baso % (Auto) 0.8 Lymph # (Auto) 1.0 L [place] # (Auto) 0.8 Eos # (Auto) 0.1 Baso # (Auto) 0.1 Abs Immat Gran (auto) 0.03 Absolute Neuts (auto) 6.5 Absolute Nucleated RBC 0.200 H Nucleated RBC % (auto) 2.4 H Smear Tech's Comments VERIFIED Smear Path Review SEE NOTE Absolute Retic Percent Retic Immature Retic Fraction Retic Hgb Equivalent PT INR APTT Fibrinogen VBG pH VBG pCO2 VBG pO2 VBG HCO3 VBG O2 Saturation VBG Base Excess Sodium 138 Potassium 4.7 Chloride 108 Carbon Dioxide 19 L Anion Gap 16 BUN 60 H Creatinine 1.56 H Estim Creat Clear Calc 42.5 Estimated GFR 44 Random Glucose 93 Lactic Acid 2.3 H* Lactic Acid F/U @ 2Hr Lactic Acid F/U @ 4Hr Calcium 8.8 Total Bilirubin 1.6 H Direct Bilirubin AST 71 H ALT 94 H Alkaline Phosphatase 79 Lactate Dehydrogenase Troponin I High Sens B-Natriuretic Peptide Total Protein 5.8 L Albumin 3.0 L Stool Occult Blood Blood Type Antibody Screen Crossmatch 10/18/22 10/18/22 10/18/22 19:05 19:05 19:05 WBC RBC Hgb Hct MCV MCH MCHC RDW Plt Count MPV Immature Gran % (Auto) Neut % (Auto) Lymph % (Auto) [place] % (Auto) Eos % (Auto) Baso % (Auto) Lymph # (Auto) [place] # (Auto) Eos # (Auto) Baso # (Auto) Abs Immat Gran (auto) Absolute Neuts (auto) Absolute Nucleated RBC Nucleated RBC % (auto) Smear Tech's Comments Smear Path Review Absolute Retic Percent Retic Immature Retic Fraction Retic Hgb Equivalent PT 85.3 H INR 6.9 H* D APTT Fibrinogen VBG pH VBG pCO2 VBG pO2 VBG HCO3 VBG O2 Saturation VBG Base Excess Sodium Potassium Chloride Carbon Dioxide Anion Gap BUN Creatinine Estim Creat Clear Calc Estimated GFR Random Glucose Lactic Acid Lactic Acid F/U @ 2Hr Lactic Acid F/U @ 4Hr Calcium Total Bilirubin Direct Bilirubin AST ALT Alkaline Phosphatase Lactate Dehydrogenase Troponin I High Sens 28.9 D B-Natriuretic Peptide 2693 H Total Protein Albumin Stool Occult Blood Blood Type Antibody Screen Crossmatch 10/18/22 10/18/22 10/18/22 19:11 19:35 19:35 WBC RBC Hgb 7.1 L Hct 29.1 L MCV MCH MCHC RDW Plt Count MPV Immature Gran % (Auto) Neut % (Auto) Lymph % (Auto) [place] % (Auto) Eos % (Auto) Baso % (Auto) Lymph # (Auto) [place] # (Auto) Eos # (Auto) Baso # (Auto) Abs Immat Gran (auto) Absolute Neuts (auto) Absolute Nucleated RBC Nucleated RBC % (auto) Smear Tech's Comments Smear Path Review Absolute Retic Percent Retic Immature Retic Fraction Retic Hgb Equivalent PT INR APTT Fibrinogen VBG pH 7.46 H VBG pCO2 29 VBG pO2 62 VBG HCO3 20 L VBG O2 Saturation 89.0 VBG Base Excess -2.0 Sodium Potassium Chloride Carbon Dioxide Anion Gap BUN Creatinine Estim Creat Clear Calc Estimated GFR Random Glucose Lactic Acid Lactic Acid F/U @ 2Hr Lactic Acid F/U @ 4Hr Calcium Total Bilirubin Direct Bilirubin AST ALT Alkaline Phosphatase Lactate Dehydrogenase Troponin I High Sens B-Natriuretic Peptide Total Protein Albumin Stool Occult Blood POSITIVE Blood Type Antibody Screen Crossmatch 10/18/22 10/18/22 10/19/22 19:35 22:37 00:49 WBC RBC Hgb Hct MCV MCH MCHC RDW Plt Count MPV Immature Gran % (Auto) Neut % (Auto) Lymph % (Auto) [place] % (Auto) Eos % (Auto) Baso % (Auto) Lymph # (Auto) [place] # (Auto) Eos # (Auto) Baso # (Auto) Abs Immat Gran (auto) Absolute Neuts (auto) Absolute Nucleated RBC Nucleated RBC % (auto) Smear Tech's Comments Smear Path Review Absolute Retic Percent Retic Immature Retic Fraction Retic Hgb Equivalent PT INR APTT Fibrinogen VBG pH VBG pCO2 VBG pO2 VBG HCO3 VBG O2 Saturation VBG Base Excess Sodium Potassium Chloride Carbon Dioxide Anion Gap BUN Creatinine Estim Creat Clear Calc Estimated GFR Random Glucose Lactic Acid Lactic Acid F/U @ 2Hr 2.9 H* Lactic Acid F/U @ 4Hr 1.4 Calcium Total Bilirubin Direct Bilirubin AST ALT Alkaline Phosphatase Lactate Dehydrogenase Troponin I High Sens B-Natriuretic Peptide Total Protein Albumin Stool Occult Blood Blood Type A Positive Antibody Screen NEGATIVE Crossmatch See Detail 10/19/22 10/19/22 10/19/22 05:52 05:52 05:52 WBC 9.3 RBC 3.54 L Hgb 6.6 L* Hct 25.4 L MCV 71.8 L MCH 18.6 L MCHC 26.0 L RDW 24.3 H Plt Count 233 MPV 11.1 Immature Gran % (Auto) 0.8 H Neut % (Auto) 75.8 H Lymph % (Auto) 9.2 L [place] % (Auto) 11.6 H Eos % (Auto) 1.6 Baso % (Auto) 1.0 Lymph # (Auto) 0.9 L [place] # (Auto) 1.1 Eos # (Auto) 0.2 Baso # (Auto) 0.1 Abs Immat Gran (auto) 0.07 H Absolute Neuts (auto) 7.0 Absolute Nucleated RBC 0.290 H Nucleated RBC % (auto) 3.1 H Smear Tech's Comments Not Reportable Smear Path Review Absolute Retic 0.095 Percent Retic 2.7 H Immature Retic Fraction 36.9 H Retic Hgb Equivalent 16.1 L PT 76.6 H INR 6.2 H* APTT 35.6 Fibrinogen 359 VBG pH VBG pCO2 VBG pO2 VBG HCO3 VBG O2 Saturation VBG Base Excess Sodium 142 Potassium 4.2 Chloride 111 H Carbon Dioxide 20 L Anion Gap 15 BUN 62 H Creatinine 1.34 Estim Creat Clear Calc 50.3 Estimated GFR 52 Random Glucose 87 Lactic Acid Lactic Acid F/U @ 2Hr Lactic Acid F/U @ 4Hr Calcium 8.9 Total Bilirubin 4.1 H Direct Bilirubin 1.1 H AST 53 H ALT 80 H Alkaline Phosphatase 60 Lactate Dehydrogenase 266 Troponin I High Sens B-Natriuretic Peptide Total Protein 5.6 L Albumin 3.4 L Stool Occult Blood Blood Type Antibody Screen Crossmatch 10/19/22 14:46 WBC RBC Hgb 7.8 L Hct 28.5 L MCV MCH MCHC RDW Plt Count MPV Immature Gran % (Auto) Neut % (Auto) Lymph % (Auto) [place] % (Auto) Eos % (Auto) Baso % (Auto) Lymph # (Auto) [place] # (Auto) Eos # (Auto) Baso # (Auto) Abs Immat Gran (auto) Absolute Neuts (auto) Absolute Nucleated RBC Nucleated RBC % (auto) Smear Tech's Comments Smear Path Review Absolute Retic Percent Retic Immature Retic Fraction Retic Hgb Equivalent PT INR APTT Fibrinogen VBG pH VBG pCO2 VBG pO2 VBG HCO3 VBG O2 Saturation VBG Base Excess Sodium Potassium Chloride Carbon Dioxide Anion Gap BUN Creatinine Estim Creat Clear Calc Estimated GFR Random Glucose Lactic Acid Lactic Acid F/U @ 2Hr Lactic Acid F/U @ 4Hr Calcium Total Bilirubin Direct Bilirubin AST ALT Alkaline Phosphatase Lactate Dehydrogenase Troponin I High Sens B-Natriuretic Peptide Total Protein Albumin Stool Occult Blood Blood Type Antibody Screen Crossmatch Procedures Date of Service Date of Service: 10/19/22 Progress Note: A&P Assessment and plan (1) Anemia: Status: Acute (2) AAA (abdominal aortic aneurysm) without rupture: Status: Acute (3) Chronic anticoagulation: Status: Acute (4) SAYDA (acute kidney injury): Status: Acute (5) Atrial flutter: Status: Acute Plan 72 y.o M with COPD, pulm HTN leading to cor pulmonale, infrarenal AAA, AF on eliquis who presented for acute on chronic anemia 2/2 GIB which clinically appears to be consistent with upper GI bleed. Ddx include PUD, primary aortoenteric fistula, dieulafoy etc. Small bowel/prox colon bleed not ruled out. Recommendations: - Hemodynamic resuscitation will be of paramount importance. Agree with 2u PRBC transfusion. Pls recheck CBC later this evening and retransfuse as needed for Hb <8 - Low threshold for ICU transfer if has further hemodynamic compromise - In that case, would also recommend a GI bleed protocol CTA - Pls change protonix IV push to drip. - Hold eliquis - Recheck INR 6-8 hours after last dose of Vit K and repeat IV Vit K 10mg if INR still above 3. - EGD and flex sig tmrw AM. Pt is agreeable upon discussion at bedside. He was informed of high periprocedure risk as determined by Cards eval earlier today and verbalises understanding. - Pls keep NPO. Recommendations reviewed with hospitalist team. Time Spent With Patient Time: Total time managing care of this patient today ____ minutes. Quality Stroke Does the patient have a stroke diagnosis?: No VTE Prior VTE?: No VTE Risk Level:: Medical - moderate - high VTE Device Contraindication: N/A - Device Ordered VTE Drug Contraindication: Treatment Not Indicated
[2022-10-19] MEDS: Melatonin 3 MG TABLET 6 MG PO (23:01)
[2022-10-20] VITALS (12 sets, daily range): BP systolic 94–118; BP diastolic 51–67; PULSE 93–117; RESP 15–21; TEMP 36–37.2; O2SAT 88–98
[2022-10-20] MEDS: Fluticasone/Umeclidinium/Vilanterol 200/62.5/25 BLST.W.DEV 1 PUFF INHALE (07:37)
[2022-10-20] MEDS: Albuterol/Iprat 2.5/0.5MG 3 ML AMPUL.NEB INHALE ×4 (07:37→18:55)
--- NOTE | 2022-10-20 08:43 | HO.ANESPROP2 ---
HPI - Anesthesia Eval Consult details Narrative: GI bleeding [facility] Active Problems Active Problems: All Active Problems (Updated 10/19/22 @ 15:35 by Valerie Medeiros MD) Anemia (Acute) Chronic right heart failure (Acute) Atrial flutter (Acute) Preoperative cardiovascular examination (Acute) AAA (abdominal aortic aneurysm) without rupture (Acute) Acute on chronic anemia (Acute) Chronic anticoagulation (Acute) CHF exacerbation (Acute) SAYDA (acute kidney injury) (Acute) ABLA (acute blood loss anemia) (Acute) Acute and chronic respiratory failure (Acute) Atrial flutter with rapid ventricular response (Acute) CHF exacerbation (Acute) Morbid obesity (Acute) Congestive heart failure (Acute) Hypoxemia (Acute) COPD (chronic obstructive pulmonary disease) (Acute) COPD with exacerbation (Acute) Past Medical History Medical History BPH (benign prostatic hyperplasia) COPD (chronic obstructive pulmonary disease) COPD (chronic obstructive pulmonary disease) HTN (hypertension) Hypoxemia Family History Family History Other CAD (coronary artery disease) Family history of problems with anesthesia: No Surgical History Surgical History H/O hernia repair History of Problems with Anesthesia: No Social History Social History Household Members: None Housing: Other Housing Other:: mobile home Do you presently have visiting nurse or other home services: No Alcohol intake: current Alcohol intake frequency: holidays/special occasions only Patient Tobacco Use Status: Former Tobacco user Quit Date: 15 years ago service: No Current occupational status: retired and disabled Meds Allergies Allergy/AdvReac Type Severity Reaction Status Date / Time No Known Allergies Allergy Verified 05/28/22 10:05 Active Medications: Current Medications Acetaminophen (Acetaminophen 325 Mg Tablet) 650 mg PO Q6H PRN PRN Reason: Pain, Mild (Pain Scale 1-3) Last Admin: 10/19/22 08:07 Dose: 650 mg Albuterol Sulfate (Albuterol Sulfate 90 Mcg 8 Gm Inhaler) 1 puff INHALE QID PRN PRN Reason: sob Albuterol/Ipratropium (Albuterol/Iprat 2.5/0.5mg 3 Ml Ampul.Neb) 3 ml INHALE RQ4H WHILE AWAKE [facility] Last Admin: 10/20/22 07:37 Dose: 3 ml Albuterol/Ipratropium (Albuterol/Iprat 2.5/0.5mg 3 Ml Ampul.Neb) 3 ml INHALE Q4H PRN PRN Reason: Wheezing Fluticasone/Umeclidinium/Vilanterol (Fluticasone/Umeclidinium/Vilanterol 200/62.5/25 Blst.W.Dev) 1 puff INHALE RDAILY [facility] Last Admin: 10/20/22 07:37 Dose: 1 puff Pantoprazole Sodium 80 mg/ (Sodium Chloride) 100 mls @ 10 mls/hr IV .Q10H [facility] Last Admin: 10/20/22 01:44 Dose: 8 mg/hr, 10 mls/hr Melatonin (Melatonin 3 Mg Tablet) 6 mg PO BEDTIME PRN PRN Reason: Insomnia Last Admin: 10/19/22 23:01 Dose: 6 mg Ondansetron HCl (Ondansetron Hcl 4 Mg/2 Ml Vial) 4 mg IVPUSH Q8H PRN PRN Reason: Nausea and Vomiting Pharmacy Consult (Consult Rx Perform Med Rec) 1 each MISCELLANE ONCE PRN PRN Reason: Consult order Sodium Chloride (0.9 % Sodium Chloride Flush 3 Ml Syringe) 3 ml IVFLUSH QSHIFT [facility] Last Admin: 10/20/22 08:04 Dose: Not Given Home Medications Medication Instructions Recorded Confirmed Last Taken Type lisinopril 10 mg tablet 1 tab PO DAILY 06/08/20 10/18/22 04/28/22 09:00 History pravastatin 40 mg tablet 1 tab PO DAILY 06/08/20 10/18/22 04/28/22 09:00 History aspirin 81 mg chewable tablet 1 tab PO DAILY 04/29/22 10/18/22 04/28/22 09:00 History fluticasone fur. 200 mcg-umeclid 1 puff inhalation DAILY 04/29/22 10/18/22 04/28/22 09:00 History 62.5 mcg-vilant 25 mcg inhalat.powder (Trelegy Ellipta) Exam Exam Date and Time: October 20, 2022 0843 Height,Weight and Vital Signs: Height 5 ft 7 in Weight 84.9 kg Last Vital Signs Temp 97.7 F 10/20/22 07:52 Pulse 96 10/20/22 07:52 Resp 18 10/20/22 07:52 BP 98/60 10/20/22 07:52 Pulse Ox 91 L 10/20/22 07:52 O2 Del Method Humidified O2 10/20/22 07:52 O2 Flow Rate 9.0 10/20/22 07:52 Oxygen Flow Rate 6 10/18/22 18:31 Pertinent Lab Results Pertinent Lab Results: Laboratory Tests 10/18/22 10/18/22 10/18/22 19:02 19:05 19:05 WBC 8.5 RBC 4.01 L D Hgb 6.8 L* D Hct 27.7 L D MCV 69.1 L MCH 17.0 L MCHC 24.5 L RDW 23.9 H Plt Count 287 MPV 10.0 Immature Gran % (Auto) 0.4 Neut % (Auto) 77.0 H Lymph % (Auto) 11.8 L Love % (Auto) 8.8 Eos % (Auto) 1.2 Baso % (Auto) 0.8 Lymph # (Auto) 1.0 L Love # (Auto) 0.8 Eos # (Auto) 0.1 Baso # (Auto) 0.1 Abs Immat Gran (auto) 0.03 Absolute Neuts (auto) 6.5 Absolute Nucleated RBC 0.200 H Nucleated RBC % (auto) 2.4 H Smear Tech's Comments VERIFIED Smear Path Review SEE NOTE Absolute Retic Percent Retic Immature Retic Fraction Retic Hgb Equivalent PT INR APTT Fibrinogen VBG pH VBG pCO2 VBG pO2 VBG HCO3 VBG O2 Saturation VBG Base Excess Sodium 138 Potassium 4.7 Chloride 108 Carbon Dioxide 19 L Anion Gap 16 BUN 60 H Creatinine 1.56 H Estim Creat Clear Calc 42.5 Estimated GFR 44 Random Glucose 93 Lactic Acid 2.3 H* Lactic Acid F/U @ 2Hr Lactic Acid F/U @ 4Hr Calcium 8.8 Total Bilirubin 1.6 H Direct Bilirubin AST 71 H ALT 94 H Alkaline Phosphatase 79 Lactate Dehydrogenase Troponin I High Sens B-Natriuretic Peptide Total Protein 5.8 L Albumin 3.0 L Stool Occult Blood Blood Type Antibody Screen Crossmatch 10/18/22 10/18/22 10/18/22 19:05 19:05 19:05 WBC RBC Hgb Hct MCV MCH MCHC RDW Plt Count MPV Immature Gran % (Auto) Neut % (Auto) Lymph % (Auto) Love % (Auto) Eos % (Auto) Baso % (Auto) Lymph # (Auto) Love # (Auto) Eos # (Auto) Baso # (Auto) Abs Immat Gran (auto) Absolute Neuts (auto) Absolute Nucleated RBC Nucleated RBC % (auto) Smear Tech's Comments Smear Path Review Absolute Retic Percent Retic Immature Retic Fraction Retic Hgb Equivalent PT 85.3 H INR 6.9 H* D APTT Fibrinogen VBG pH VBG pCO2 VBG pO2 VBG HCO3 VBG O2 Saturation VBG Base Excess Sodium Potassium Chloride Carbon Dioxide Anion Gap BUN Creatinine Estim Creat Clear Calc Estimated GFR Random Glucose Lactic Acid Lactic Acid F/U @ 2Hr Lactic Acid F/U @ 4Hr Calcium Total Bilirubin Direct Bilirubin AST ALT Alkaline Phosphatase Lactate Dehydrogenase Troponin I High Sens 28.9 D B-Natriuretic Peptide 2693 H Total Protein Albumin Stool Occult Blood Blood Type Antibody Screen Crossmatch 10/18/22 10/18/22 10/18/22 19:11 19:35 19:35 WBC RBC Hgb 7.1 L Hct 29.1 L MCV MCH MCHC RDW Plt Count MPV Immature Gran % (Auto) Neut % (Auto) Lymph % (Auto) Love % (Auto) Eos % (Auto) Baso % (Auto) Lymph # (Auto) Love # (Auto) Eos # (Auto) Baso # (Auto) Abs Immat Gran (auto) Absolute Neuts (auto) Absolute Nucleated RBC Nucleated RBC % (auto) Smear Tech's Comments Smear Path Review Absolute Retic Percent Retic Immature Retic Fraction Retic Hgb Equivalent PT INR APTT Fibrinogen VBG pH 7.46 H VBG pCO2 29 VBG pO2 62 VBG HCO3 20 L VBG O2 Saturation 89.0 VBG Base Excess -2.0 Sodium Potassium Chloride Carbon Dioxide Anion Gap BUN Creatinine Estim Creat Clear Calc Estimated GFR Random Glucose Lactic Acid Lactic Acid F/U @ 2Hr Lactic Acid F/U @ 4Hr Calcium Total Bilirubin Direct Bilirubin AST ALT Alkaline Phosphatase Lactate Dehydrogenase Troponin I High Sens B-Natriuretic Peptide Total Protein Albumin Stool Occult Blood POSITIVE Blood Type Antibody Screen Crossmatch 10/18/22 10/18/22 10/19/22 19:35 22:37 00:49 WBC RBC Hgb Hct MCV MCH MCHC RDW Plt Count MPV Immature Gran % (Auto) Neut % (Auto) Lymph % (Auto) Love % (Auto) Eos % (Auto) Baso % (Auto) Lymph # (Auto) Love # (Auto) Eos # (Auto) Baso # (Auto) Abs Immat Gran (auto) Absolute Neuts (auto) Absolute Nucleated RBC Nucleated RBC % (auto) Smear Tech's Comments Smear Path Review Absolute Retic Percent Retic Immature Retic Fraction Retic Hgb Equivalent PT INR APTT Fibrinogen VBG pH VBG pCO2 VBG pO2 VBG HCO3 VBG O2 Saturation VBG Base Excess Sodium Potassium Chloride Carbon Dioxide Anion Gap BUN Creatinine Estim Creat Clear Calc Estimated GFR Random Glucose Lactic Acid Lactic Acid F/U @ 2Hr 2.9 H* Lactic Acid F/U @ 4Hr 1.4 Calcium Total Bilirubin Direct Bilirubin AST ALT Alkaline Phosphatase Lactate Dehydrogenase Troponin I High Sens B-Natriuretic Peptide Total Protein Albumin Stool Occult Blood Blood Type A Positive Antibody Screen NEGATIVE Crossmatch See Detail 10/19/22 10/19/22 10/19/22 05:52 05:52 05:52 WBC 9.3 RBC 3.54 L Hgb 6.6 L* Hct 25.4 L MCV 71.8 L MCH 18.6 L MCHC 26.0 L RDW 24.3 H Plt Count 233 MPV 11.1 Immature Gran % (Auto) 0.8 H Neut % (Auto) 75.8 H Lymph % (Auto) 9.2 L Love % (Auto) 11.6 H Eos % (Auto) 1.6 Baso % (Auto) 1.0 Lymph # (Auto) 0.9 L Love # (Auto) 1.1 Eos # (Auto) 0.2 Baso # (Auto) 0.1 Abs Immat Gran (auto) 0.07 H Absolute Neuts (auto) 7.0 Absolute Nucleated RBC 0.290 H Nucleated RBC % (auto) 3.1 H Smear Tech's Comments Not Reportable Smear Path Review Absolute Retic 0.095 Percent Retic 2.7 H Immature Retic Fraction 36.9 H Retic Hgb Equivalent 16.1 L PT 76.6 H INR 6.2 H* APTT 35.6 Fibrinogen 359 VBG pH VBG pCO2 VBG pO2 VBG HCO3 VBG O2 Saturation VBG Base Excess Sodium 142 Potassium 4.2 Chloride 111 H Carbon Dioxide 20 L Anion Gap 15 BUN 62 H Creatinine 1.34 Estim Creat Clear Calc 50.3 Estimated GFR 52 Random Glucose 87 Lactic Acid Lactic Acid F/U @ 2Hr Lactic Acid F/U @ 4Hr Calcium 8.9 Total Bilirubin 4.1 H Direct Bilirubin 1.1 H AST 53 H ALT 80 H Alkaline Phosphatase 60 Lactate Dehydrogenase 266 Troponin I High Sens B-Natriuretic Peptide Total Protein 5.6 L Albumin 3.4 L Stool Occult Blood Blood Type Antibody Screen Crossmatch 10/19/22 10/19/22 10/19/22 14:46 20:11 20:11 WBC RBC Hgb 7.8 L 9.5 L D Hct 28.5 L 33.4 L MCV MCH MCHC RDW Plt Count MPV Immature Gran % (Auto) Neut % (Auto) Lymph % (Auto) Love % (Auto) Eos % (Auto) Baso % (Auto) Lymph # (Auto) Love # (Auto) Eos # (Auto) Baso # (Auto) Abs Immat Gran (auto) Absolute Neuts (auto) Absolute Nucleated RBC Nucleated RBC % (auto) Smear Tech's Comments Smear Path Review Absolute Retic Percent Retic Immature Retic Fraction Retic Hgb Equivalent PT 34.1 H INR 2.8 H D APTT Fibrinogen VBG pH VBG pCO2 VBG pO2 VBG HCO3 VBG O2 Saturation VBG Base Excess Sodium Potassium Chloride Carbon Dioxide Anion Gap BUN Creatinine Estim Creat Clear Calc Estimated GFR Random Glucose Lactic Acid Lactic Acid F/U @ 2Hr Lactic Acid F/U @ 4Hr Calcium Total Bilirubin Direct Bilirubin AST ALT Alkaline Phosphatase Lactate Dehydrogenase Troponin I High Sens B-Natriuretic Peptide Total Protein Albumin Stool Occult Blood Blood Type Antibody Screen Crossmatch 10/20/22 10/20/22 10/20/22 06:04 06:04 06:04 WBC 10.6 RBC 4.23 L Hgb 9.3 L Hct 32.5 L MCV 76.8 L D MCH 22.0 L MCHC 28.6 L RDW 26.2 H Plt Count 185 MPV 10.6 Immature Gran % (Auto) 1.1 H Neut % (Auto) 77.9 H Lymph % (Auto) 8.9 L Love % (Auto) 8.1 Eos % (Auto) 2.9 Baso % (Auto) 1.1 Lymph # (Auto) 1.0 L Love # (Auto) 0.9 Eos # (Auto) 0.3 Baso # (Auto) 0.1 Abs Immat Gran (auto) 0.12 H Absolute Neuts (auto) 8.3 Absolute Nucleated RBC 0.220 H Nucleated RBC % (auto) 2.1 H Smear Tech's Comments VERIFIED Smear Path Review Absolute Retic Percent Retic Immature Retic Fraction Retic Hgb Equivalent PT 30.0 H INR 2.5 H APTT Fibrinogen VBG pH VBG pCO2 VBG pO2 VBG HCO3 VBG O2 Saturation VBG Base Excess Sodium 142 Potassium 3.6 Chloride 112 H Carbon Dioxide 19 L Anion Gap 15 BUN 36 H Creatinine 0.81 Estim Creat Clear Calc 83.3 Estimated GFR > 60 Random Glucose 71 Lactic Acid Lactic Acid F/U @ 2Hr Lactic Acid F/U @ 4Hr Calcium 9.2 Total Bilirubin 6.0 H Direct Bilirubin 2.0 H AST 42 H ALT 70 H Alkaline Phosphatase 65 Lactate Dehydrogenase Troponin I High Sens B-Natriuretic Peptide Total Protein 5.2 L Albumin 3.0 L Stool Occult Blood Blood Type Antibody Screen Crossmatch Airway Mallampati Class: II TM Dist: >3cm Neck ROM: Full Denture: Upper and Lower Loose/Missing/Broken Teeth: No Heart: RRR Lungs: cta, diminished breath sounds bilaterally Assessment and Plan Assessment Anesthesia Assessment: Anesthesia Plan Discussed and Chart Reviewed Final Anesthetic Review Family History of Problems with Anesthesia: No History of Problems with Anesthesia: No NPO: Yes ASA Class: IV Final Preanesthetic Review: No Changes in Pt Med Stat, Meds/Allgs Chart Reviewed, Consent Obtained/Reviewed and Anes Risks/Benef Reviewed Patient Risk: High Procedure Risk: Low Assessment/Block/Sedation in SS: Assess/Block/Sedation-SS Anesthetic Plan Anesthetic Plan: MAC: Disposition: Standard PACU
--- NOTE | 2022-10-20 08:48 | MHC.SHP ---
Pre-Procedural Eval Section A Date of Service: 10/20/22 The History & Physical has been completed within 30 days and I have reviewed it.: Yes Section B Chief Complaint: Anemia, GI bleed Allergies: Allergies Allergy/AdvReac Type Severity Reaction Status Date / Time No Known Allergies Allergy Verified 05/28/22 10:05 Plan Diagnosis/Plan: Unchanged I have reviewed the history and physical and performed a pertinent physical examination on my patient. No changes have occurred unless specified. Time Spent With Patient Time: Total time managing care of this patient today ____ minutes.
--- NOTE | 2022-10-20 09:59 | W.PM.OPN ---
Operative Note Operative Note Date of Service: 10/20/22 Narrative: Procedure:?Esophagogastroduodenoscopy and flexible sigmoidoscopy Endoscopist:?Allyn Talavera MD Indication:?[facility] Anesthesia Provider:?Dr Young Chino Anesthesia Type:?MAC Instrument:?Olympus [id number]-[id number] EGD Procedure:?? The procedure, indications, preparation and potential complications were reviewed with the patient, who indicated understanding and gave written informed consent to proceed. A physical exam was performed. The endoscope was introduced through the mouth, and advanced to the second part of duodenum. The mucosa was carefully examined on slow withdrawal of the endoscope. There were no immediate complications. The patient tolerated the procedure well. EGD Findings:? Oropharynx: Old blood and clots seen in oropharynx which were promptly suctioned. There was an adherent clot vs lesion just proximal to the epiglottis that started oozing as soon as it was agitated with suction. Esophagus:? Small clots seen in esophagus that were suctioned, otherwise normal mucosa. Stomach:? Mild irritation and erythema in the fundus. Body and antrum with normal mucosa. No fresh or old blood seen in stomach. Duodenum:? Normal duodenal mucosa to the extent visualised. Bile flowing out of major papilla. No fresh or old blood seen in duodenum. Sigmoidoscopy Procedure:? The patient was then turned for the flexible sigmoidoscopy. A digital rectal exam was performed which was normal.? The gastroscope was then inserted through the anus and advanced through the colon to the descending colon at 50 cm. Mucosa was carefully examined under high definition white light as the instrument was slowly withdrawn in a retrograde panoramic fashion. Retroflexion was performed in rectum. The procedure was not difficult. There were no immediate obvious complications. Limitations: Poor prep Findings: Mucosa: Old melena noted throughout the colon. This was flushed and suctioned. Underlying mucosa was normal. No fresh bleeding noted. Protruding lesions: Small internal hemorrhoids without stigmata of recent bleeding. Impression: 1. Bleeding oropharyngeal lesion 2. Normal esophagus 3. Mild gastritis 4. Normal duodenum 5. Melena in colon otherwise normal mucosa 6. Non bleeding internal hemorrhoids Recommendations:?? Bleeding is likely from the oropharyngeal lesion. Recommend ENT evaluation. In the meantime, can trial liquid carafate PO 10ml QID to help temporize. Monitor CBC BID and transfuse as needed If deemed high risk for thrombotic events from Cardiology standpoint, can start IV heparin otherwise hold anticoagulation.
--- NOTE | 2022-10-20 12:18 | HO.PM.IMPN ---
Subjective Subjective Date of Service: 10/20/22 Interval History: seen and examined this morning follow up for dizziness, anemia pt reports intermittent dizziness for the past few weeks, mostly when walking around no sob, cough, abdominal pain. denies melena, hematuria; intermittent mild epistaxis but none recently Review of Systems Review of Systems: Yes all other systems are reviewed and are negative Constitutional Constitutional: Denies chills and Denies fever(s) ENT Ears, Nose, Mouth, and Throat: Reports dizziness Cardiovascular Cardiovascular: Denies chest pain, Denies palpitations and Denies dyspnea Respiratory Respiratory: Denies cough and Denies dyspnea Gastrointestinal Gastrointestinal: Denies abdominal pain, Denies diarrhea, Denies nausea and Denies vomiting Neurologic Neurologic: Reports dizziness Endocrine Endocrine: Denies palpitations Physical Exam Vital Signs: Vital Signs: Last Vital Signs Temp 97.7 F 10/20/22 10:51 Pulse 97 10/20/22 11:32 Resp 20 10/20/22 11:32 BP 96/51 L 10/20/22 10:51 Pulse Ox 94 10/20/22 10:51 O2 Del Method Oxymask 10/20/22 10:51 O2 Flow Rate 10.0 10/20/22 10:51 Oxygen Flow Rate 6 10/18/22 18:31 BMI result Body Mass Index 29.3 Appearing in no acute distress lung sounds are clear to auscultation heart regular rate rhythm, clear S1, S2 positive bowel sounds, abdomen is soft, nontender neuro patient is alert x3, no focal deficits Objective Data Active Medications Acetaminophen (Acetaminophen 325 Mg Tablet) 650 mg PO Q6H PRN PRN Reason: Pain, Mild (Pain Scale 1-3) Last Admin: 10/19/22 08:07 Dose: 650 mg Documented By: YOLA Albuterol Sulfate (Albuterol Sulfate 90 Mcg 8 Gm Inhaler) 1 puff INHALE QID PRN PRN Reason: sob Albuterol/Ipratropium (Albuterol/Iprat 2.5/0.5mg 3 Ml Ampul.Neb) 3 ml INHALE RQ4H WHILE AWAKE SHERLYN Last Admin: 10/20/22 11:30 Dose: 3 ml Documented By: JUDE Albuterol/Ipratropium (Albuterol/Iprat 2.5/0.5mg 3 Ml Ampul.Neb) 3 ml INHALE Q4H PRN PRN Reason: Wheezing Fluticasone/Umeclidinium/Vilanterol (Fluticasone/Umeclidinium/Vilanterol 200/62.5/25 Blst.W.Dev) 1 puff INHALE RDAILY [facility] Last Admin: 10/20/22 07:37 Dose: 1 puff Documented By: JUDE Melatonin (Melatonin 3 Mg Tablet) 6 mg PO BEDTIME PRN PRN Reason: Insomnia Last Admin: 10/19/22 23:01 Dose: 6 mg Documented By: BLAS Ondansetron HCl (Ondansetron Hcl 4 Mg/2 Ml Vial) 4 mg IVPUSH Q8H PRN PRN Reason: Nausea and Vomiting Pharmacy Consult (Consult Rx Perform Med Rec) 1 each MISCELLANE ONCE PRN PRN Reason: Consult order Sodium Chloride (0.9 % Sodium Chloride Flush 3 Ml Syringe) 3 ml IVFLUSH QSHIFT [facility] Last Admin: 10/20/22 08:04 Dose: Not Given Documented By: ELIZABETH Non-Admin Reason: IV Running Sucralfate (Sucralfate Oral Suspension 1 Gm/10 Ml Oral.Susp) 1 gm PO QIDACHS [facility] Labs 10/20/22 06:04 10/20/22 06:04 Labs: Laboratory Results - last 24 hr 10/18/22 10/19/22 10/19/22 19:35 05:52 05:52 MCV MCH MCHC RDW Plt Count MPV Immature Gran % (Auto) Neut % (Auto) Lymph % (Auto) Bibb % (Auto) Eos % (Auto) Baso % (Auto) Lymph # (Auto) Bibb # (Auto) Eos # (Auto) Baso # (Auto) Abs Immat Gran (auto) Absolute Neuts (auto) Absolute Nucleated RBC Nucleated RBC % (auto) Smear Tech's Comments PT INR APTT 35.6 Fibrinogen 359 Anion Gap Estim Creat Clear Calc Estimated GFR Random Glucose Calcium Total Bilirubin Direct Bilirubin 1.1 H AST ALT Alkaline Phosphatase Total Protein Albumin Blood Type A Positive Antibody Screen NEGATIVE Crossmatch See Detail 10/19/22 10/20/22 10/20/22 20:11 06:04 06:04 MCV 76.8 L D MCH 22.0 L MCHC 28.6 L RDW 26.2 H Plt Count 185 MPV 10.6 Immature Gran % (Auto) 1.1 H Neut % (Auto) 77.9 H Lymph % (Auto) 8.9 L Bibb % (Auto) 8.1 Eos % (Auto) 2.9 Baso % (Auto) 1.1 Lymph # (Auto) 1.0 L Bibb # (Auto) 0.9 Eos # (Auto) 0.3 Baso # (Auto) 0.1 Abs Immat Gran (auto) 0.12 H Absolute Neuts (auto) 8.3 Absolute Nucleated RBC 0.220 H Nucleated RBC % (auto) 2.1 H Smear Tech's Comments VERIFIED PT 34.1 H INR 2.8 H D APTT Fibrinogen Anion Gap 15 Estim Creat Clear Calc 83.3 Estimated GFR > 60 Random Glucose 71 Calcium 9.2 Total Bilirubin 6.0 H Direct Bilirubin 2.0 H AST 42 H ALT 70 H Alkaline Phosphatase 65 Total Protein 5.2 L Albumin 3.0 L Blood Type Antibody Screen Crossmatch 10/20/22 06:04 MCV MCH MCHC RDW Plt Count MPV Immature Gran % (Auto) Neut % (Auto) Lymph % (Auto) Bibb % (Auto) Eos % (Auto) Baso % (Auto) Lymph # (Auto) Bibb # (Auto) Eos # (Auto) Baso # (Auto) Abs Immat Gran (auto) Absolute Neuts (auto) Absolute Nucleated RBC Nucleated RBC % (auto) Smear Tech's Comments PT 30.0 H INR 2.5 H APTT Fibrinogen Anion Gap Estim Creat Clear Calc Estimated GFR Random Glucose Calcium Total Bilirubin Direct Bilirubin AST ALT Alkaline Phosphatase Total Protein Albumin Blood Type Antibody Screen Crossmatch Microbiology Microbiology Results: Microbiology 10/18/22 19:16 Blood Culture - Preliminary Blood - Venous No growth after 24 hours. 10/18/22 19:05 Blood Culture - Preliminary Blood - Venous No growth after 24 hours. Assessment and Plan (1) AAA (abdominal aortic aneurysm) without rupture: Status: Acute (2) SAYDA (acute kidney injury): Status: Acute (3) ABLA (acute blood loss anemia): Status: Acute Plan This is a 72-year-old male with a PMH significant for hx of atrial flutter on Eliquid, COPD, HFpEF, BPH, and HLD who presents to the ED with?worsening lightheadedness, dizziness, and history of recent falls for the past 2 weeks found to have acute on chronic hypoxic respiratory failure in the setting blood loss anemia. Acute on chronic hypoxic respiratory failure related to acute blood loss anemia chest CT without acute pulmonary changes - severe emphysema On 6 L home O2 at baseline, wean as tolerated continue home inhalers Acute blood loss anemia Stool occult positive s/p IV protonix continue clears Hold Eliquis, aspirin s/p EGD 10/20/22 Supratherapeutic INR INR 6.9 at time of presentation Received 1 unit PRBCs 10/18, will transfuse additional unit Will hold Eliquis Repeat INR in the morning elevated LFTs/transaminitis CT showing normal liver on imaging follow LFTs Elevated bilirubin, possibly related to bleeding HFpEF Patient's BNP elevated 2693, but does not appear fluid overloaded and no respiratory symptoms Patient received 60 mg of Lasix in ED Will hold on additional Lasix for now AAA CT of abdomen and pelvis found 6.1 cm infrarenal abdominal aortic aneurysm seen by Vascular surgery - outpatient follow up SAYDA. Resolved Likely secondary to blood loss Follow BMP avoid nephrotoxins Atrial flutter EKG showed sinus rhythm with first-degree AV block Hold Eliquis d/t anemia Hold digoxin, metoprolol d/t soft BP, resume as indicated BPH Continue tamsulosin HTN BP soft, hold all anti-hypertensives for now Resume as warranted HLD Hold statins d/t elevated LFTs DNR/DNI Attending:?Dr Liriano DVT Prophylaxis: INR currently suprtherapeutic,boots due to GI bleeding continued hopsital stay for treatment of?COPD and CHF exacerbations. Time Spent With Patient Time: Total time managing care of this patient today ____ minutes. Quality Stroke Does the patient have a stroke diagnosis?: No VTE Prior VTE?: No VTE Risk Level:: Medical - moderate - high VTE Device Contraindication: N/A - Device Ordered VTE Drug Contraindication: Treatment Not Indicated
[2022-10-20] MEDS: Sucralfate Oral Suspension 1 GM/10 ML ORAL.SUSP PO ×3 (12:29→19:42)
[2022-10-20] MEDS: Melatonin 3 MG TABLET 6 MG PO (23:37)
[2022-10-21] VITALS (10 sets, daily range): BP systolic 98–116; BP diastolic 59–69; PULSE 98–105; RESP 14–24; TEMP 36.2–36.9; O2SAT 89–94
[2022-10-21] MEDS: Sucralfate Oral Suspension 1 GM/10 ML ORAL.SUSP PO ×4 (06:08→19:50)
[2022-10-21 06:55] LABS: Anion Gap 13 (12-20); Calcium 9.1 mg/dL (8.4-10.2); Carbon Dioxide 20 mmol/L (22-29); Chloride 112 mmol/L (96-108); Glucose Random 108 mg/dL (60-115); Potassium 3.5 mmol/L (3.3-5.1); Sodium 141 mmol/L (135-145)
[2022-10-21 07:09] LABS: Blood Urea Nitrogen 23 mg/dL (9-16); Creatinine Clr Calc Pharmacy 81.3; Estimated Glomerular Filt Rate > 60
[2022-10-21 07:13] LABS: Alanine Aminotransferase 56 U/L (0-40); Albumin Level 3.1 g/dL (3.5-5.0); Alkaline Phosphatase 67 U/L (39-117); Aspartate Amino Transferase 33 U/L (5-37); Bilirubin Total 4.3 mg/dL (0.0-1.0); Total Protein 5.4 g/dL (6.5-8.0)
[2022-10-21] MEDS: Fluticasone/Umeclidinium/Vilanterol 200/62.5/25 BLST.W.DEV 1 PUFF INHALE (07:35)
[2022-10-21] MEDS: Albuterol/Iprat 2.5/0.5MG 3 ML AMPUL.NEB INHALE ×2 (07:35→11:08)
[2022-10-21 09:00] LABS: Hematocrit 35.5 % (42.0-52.0); Hemoglobin 9.9 g/dl (14.0-18.0); Mean Corpuscular HGB Conc 27.9 g/dl (31.0-36.0); Mean Corpuscular Volume 79.1 fL (80.0-98.0); Platelet Count 212 X10*3/uL (160-400); Red Blood Count 4.49 X10*6/uL (4.60-5.80); Red Cell Distribution Width 27.5 % (11.0-16.0); White Blood Count 11.2 X10*3/uL (4.8-10.8)
[2022-10-21 09:02] LABS: NRBC Pct Auto 1.9 /100WBC (0.0-0.2)
--- NOTE | 2022-10-21 10:10 | HO.POSTANES ---
Post Anesthesia Evaluation Post Anesthesia Evaluation Date of Service: 10/21/22 Vital Signs: Vital Signs Temp Pulse Resp BP Pulse Ox O2 Del Method O2 Flow Rate 10/21/22 07:56 98.2 F 105 H 20 100/64 93 Oxymask 5 10/21/22 07:40 98 18 10/21/22 04:06 100 104/64 10/21/22 03:53 98.0 F 104 H 20 98/59 L 90 L Oxymask 5 10/21/22 00:01 97.2 F 104 H 20 116/61 92 Nasal Cannula 5 Anesthesia: Monitored Mental Status: Awake Pain Control: Satisfactory Nausea/Vomiting: None Hydration: Adequate Anesthesia-Related Issues: No Anes. Related Issues
--- NOTE | 2022-10-21 12:22 | HO.PM.IMPN ---
Subjective Subjective Date of Service: 10/21/22 Interval History: seen and examined this morning follow up for dizziness, anemia dizziness resolved no sob, cough, abdominal pain. denies melena, hematuria Review of Systems Review of Systems: Yes all other systems are reviewed and are negative Constitutional Constitutional: Denies chills and Denies fever(s) ENT Ears, Nose, Mouth, and Throat: Reports dizziness Cardiovascular Cardiovascular: Denies chest pain, Denies palpitations and Denies dyspnea Respiratory Respiratory: Denies cough and Denies dyspnea Gastrointestinal Gastrointestinal: Denies abdominal pain, Denies diarrhea, Denies nausea and Denies vomiting Neurologic Neurologic: Reports dizziness Endocrine Endocrine: Denies palpitations Physical Exam Vital Signs: Vital Signs: Last Vital Signs Temp 97.7 F 10/21/22 11:31 Pulse 99 10/21/22 11:31 Resp 16 10/21/22 11:31 BP 99/66 10/21/22 11:31 Pulse Ox 93 10/21/22 11:31 O2 Del Method Oxymask 10/21/22 11:31 O2 Flow Rate 6 10/21/22 11:31 Oxygen Flow Rate 6 10/18/22 18:31 BMI result Body Mass Index 29.3 Appearing in no acute distress lung sounds are clear to auscultation heart regular rate rhythm, clear S1, S2 positive bowel sounds, abdomen is soft, nontender neuro patient is alert x3, no focal deficits Objective Data Active Medications Acetaminophen (Acetaminophen 325 Mg Tablet) 650 mg PO Q6H PRN PRN Reason: Pain, Mild (Pain Scale 1-3) Last Admin: 10/19/22 08:07 Dose: 650 mg Documented By: YOLA Albuterol Sulfate (Albuterol Sulfate 90 Mcg 8 Gm Inhaler) 1 puff INHALE QID PRN PRN Reason: sob Albuterol/Ipratropium (Albuterol/Iprat 2.5/0.5mg 3 Ml Ampul.Neb) 3 ml INHALE RQ4H WHILE AWAKE SHELRYN Last Admin: 10/21/22 11:08 Dose: 3 ml Documented By: JUDE Albuterol/Ipratropium (Albuterol/Iprat 2.5/0.5mg 3 Ml Ampul.Neb) 3 ml INHALE Q4H PRN PRN Reason: Wheezing Fluticasone/Umeclidinium/Vilanterol (Fluticasone/Umeclidinium/Vilanterol 200/62.5/25 Blst.W.Dev) 1 puff INHALE RDAILY [facility] Last Admin: 10/21/22 07:35 Dose: 1 puff Documented By: JUDE Melatonin (Melatonin 3 Mg Tablet) 6 mg PO BEDTIME PRN PRN Reason: Insomnia Last Admin: 10/20/22 23:37 Dose: 6 mg Documented By: JODEE Ondansetron HCl (Ondansetron Hcl 4 Mg/2 Ml Vial) 4 mg IVPUSH Q8H PRN PRN Reason: Nausea and Vomiting Pharmacy Consult (Consult Rx Perform Med Rec) 1 each MISCELLANE ONCE PRN PRN Reason: Consult order Sodium Chloride (0.9 % Sodium Chloride Flush 3 Ml Syringe) 3 ml IVFLUSH QSHIFT [facility] Last Admin: 10/21/22 10:13 Dose: 3 ml Documented By: ELIZABETH Sucralfate (Sucralfate Oral Suspension 1 Gm/10 Ml Oral.Susp) 1 gm PO QIDACHS [facility] Last Admin: 10/21/22 11:32 Dose: 1 gm Documented By: ELIZABETH Labs 10/21/22 08:52 10/21/22 06:05 Labs: Laboratory Results - last 24 hr 10/21/22 10/21/22 10/21/22 06:05 06:05 08:52 MCV 79.1 L MCH 22.0 L MCHC 27.9 L RDW 27.5 H Plt Count 212 MPV 10.0 Absolute Nucleated RBC 0.210 H Nucleated RBC % (auto) 1.9 H Anion Gap 13 Estim Creat Clear Calc 81.3 Estimated GFR > 60 Random Glucose 108 Calcium 9.1 Total Bilirubin 4.3 H Direct Bilirubin 2.0 H AST 33 ALT 56 H Alkaline Phosphatase 67 Total Protein 5.4 L Albumin 3.1 L Microbiology Microbiology Results: Microbiology 10/18/22 19:16 Blood Culture - Preliminary Blood - Venous No growth after 48 hours. 10/18/22 19:05 Blood Culture - Preliminary Blood - Venous No growth after 48 hours. Assessment and Plan (1) AAA (abdominal aortic aneurysm) without rupture: Status: Acute (2) SAYDA (acute kidney injury): Status: Acute (3) ABLA (acute blood loss anemia): Status: Acute Plan This is a 72-year-old male with a PMH significant for hx of atrial flutter on Eliquid, COPD, HFpEF, BPH, and HLD who presents to the ED with?worsening lightheadedness, dizziness, and history of recent falls for the past 2 weeks found to have acute on chronic hypoxic respiratory failure in the setting blood loss anemia. Acute on chronic hypoxic respiratory failure related to acute blood loss anemia chest CT without acute pulmonary changes - severe emphysema On 6 L home O2 at baseline, wean as tolerated continue home inhalers Acute blood loss anemia . Stable H&H at this time Stool occult positive s/p IV protonix Hold Eliquis, aspirin s/p EGD 10/20/22> oropharyngeal lesion likely source of bleeding, needs ENT evaluation Supratherapeutic INR INR 6.9 at time of presentation Received 1 unit PRBCs 10/18, will transfuse additional unit Will hold Eliquis INR 2.5 today elevated LFTs/transaminitis CT showing normal liver on imaging follow LFTs Elevated bilirubin, possibly related to bleeding HFpEF Patient's BNP elevated 2693, but does not appear fluid overloaded and no respiratory symptoms Patient received 60 mg of Lasix in ED Will hold on additional Lasix for now AAA CT of abdomen and pelvis found 6.1 cm infrarenal abdominal aortic aneurysm seen by Vascular surgery - outpatient follow up SAYDA. Resolved Likely secondary to blood loss Follow BMP avoid nephrotoxins Atrial flutter EKG showed sinus rhythm with first-degree AV block Hold Eliquis d/t anemia Hold digoxin, metoprolol d/t soft BP, resume as indicated BPH Continue tamsulosin HTN BP soft, hold all anti-hypertensives for now Resume as warranted HLD Hold statins d/t elevated LFTs DNR/DNI Attending:?Dr Liriano DVT Prophylaxis: INR currently suprtherapeutic,boots due to GI bleeding continued hopsital stay for treatment of?COPD and CHF exacerbations. Time Spent With Patient Time: Total time managing care of this patient today ____ minutes. Quality Stroke Does the patient have a stroke diagnosis?: No VTE Prior VTE?: No VTE Risk Level:: Medical - moderate - high VTE Device Contraindication: N/A - Device Ordered VTE Drug Contraindication: Treatment Not Indicated
--- NOTE | 2022-10-21 23:08 | PC.NURSE ---
Pt had 8 beat Vtach around 2238, paged MD and aware.
[2022-10-22] VITALS (10 sets, daily range): BP systolic 92–115; BP diastolic 58–68; PULSE 80–107; RESP 16–20; TEMP 36.2–36.8; O2SAT 88–93
--- NOTE | 2022-10-22 03:38 | PC.NURSE ---
Pt was found to have O2 in low 80s with Oxymask @ 6L. Paged , got order for continuous pulse ox. In order for pt to recover, had to put O2 up on oxymask to 15L. Switched to pina and after a few minutes turned down to 6L but pt not maintaining 88% or above per MD order. Increased O2 to 10L on pina, pt now maintaining 88% or greater. made aware.
--- NOTE | 2022-10-22 06:43 | PM.EVENT ---
Event Note Date of Service: 10/22/22 Event Note: Patient with increase in oxygen requirements overnight. Obtaining x-ray and venous blood gas Time Spent With Patient Time: Total time managing care of this patient today ____ minutes.
[2022-10-22 07:05] LABS: Hematocrit 32.3 % (42.0-52.0); Mean Corpuscular HGB Conc 27.9 g/dl (31.0-36.0); Mean Corpuscular Hemoglobin 22.3 pg (27.0-33.0); Mean Corpuscular Volume 80.1 fL (80.0-98.0); NRBC Pct Auto 1.5 /100WBC (0.0-0.2); Platelet Count 188 X10*3/uL (160-400); Red Blood Count 4.03 X10*6/uL (4.60-5.80); Red Cell Distribution Width 28.8 % (11.0-16.0); White Blood Count 8.8 X10*3/uL (4.8-10.8)
[2022-10-22] MEDS: Albuterol/Iprat 2.5/0.5MG 3 ML AMPUL.NEB INHALE ×4 (08:09→19:47)
[2022-10-22] MEDS: Fluticasone/Umeclidinium/Vilanterol 200/62.5/25 BLST.W.DEV 1 PUFF INHALE (08:09)
[2022-10-22 08:42] LABS: Anion Gap 11 (12-20); Blood Urea Nitrogen 18 mg/dL (9-16); Calcium 8.8 mg/dL (8.4-10.2); Carbon Dioxide 19 mmol/L (22-29); Chloride 113 mmol/L (96-108); Creatinine Clr Calc Pharmacy 82.2; Estimated Glomerular Filt Rate > 60; Glucose Random 95 mg/dL (60-115); Potassium 3.9 mmol/L (3.3-5.1); Sodium 139 mmol/L (135-145)
[2022-10-22] MEDS: methylPREDNISolone Sod Succ 40 MG/ML VIAL IVPUSH ×2 (08:50→20:20)
[2022-10-22] MEDS: Sucralfate Oral Suspension 1 GM/10 ML ORAL.SUSP PO ×3 (08:50→20:20)
--- NOTE | 2022-10-22 10:33 | HO.PM.IMPN ---
Subjective Subjective Date of Service: 10/22/22 Interval History: seen and examined this morning follow up for dizziness, anemia dizziness resolved no sob, cough, abdominal pain. denies melena, hematuria Review of Systems Review of Systems: Yes all other systems are reviewed and are negative Constitutional Constitutional: Denies chills and Denies fever(s) ENT Ears, Nose, Mouth, and Throat: Reports dizziness Cardiovascular Cardiovascular: Denies chest pain, Denies palpitations and Denies dyspnea Respiratory Respiratory: Denies cough and Denies dyspnea Gastrointestinal Gastrointestinal: Denies abdominal pain, Denies diarrhea, Denies nausea and Denies vomiting Neurologic Neurologic: Reports dizziness Endocrine Endocrine: Denies palpitations Physical Exam Vital Signs: Vital Signs: Last Vital Signs Temp 97.6 F 10/22/22 08:00 Pulse 92 10/22/22 08:10 Resp 16 10/22/22 08:10 BP 98/66 10/22/22 08:00 Pulse Ox 93 10/22/22 08:00 O2 Del Method Nasal Cannula 10/22/22 08:00 O2 Flow Rate 10 10/22/22 08:00 Oxygen Flow Rate 6 10/18/22 18:31 BMI result Body Mass Index 29.3 Appearing in no acute distress lung sounds are clear to auscultation heart regular rate rhythm, clear S1, S2 positive bowel sounds, abdomen is soft, nontender neuro patient is alert x3, no focal deficits Objective Data Active Medications Acetaminophen (Acetaminophen 325 Mg Tablet) 650 mg PO Q6H PRN PRN Reason: Pain, Mild (Pain Scale 1-3) Last Admin: 10/19/22 08:07 Dose: 650 mg Documented By: YOLA Albuterol Sulfate (Albuterol Sulfate 90 Mcg 8 Gm Inhaler) 1 puff INHALE QID PRN PRN Reason: sob Albuterol/Ipratropium (Albuterol/Iprat 2.5/0.5mg 3 Ml Ampul.Neb) 3 ml INHALE RQ4H WHILE AWAKE SHERLYN Last Admin: 10/22/22 08:09 Dose: 3 ml Documented By: SHMUEL Albuterol/Ipratropium (Albuterol/Iprat 2.5/0.5mg 3 Ml Ampul.Neb) 3 ml INHALE Q4H PRN PRN Reason: Wheezing Fluticasone/Umeclidinium/Vilanterol (Fluticasone/Umeclidinium/Vilanterol 200/62.5/25 Blst.W.Dev) 1 puff INHALE RDAILY [facility] Last Admin: 10/22/22 08:09 Dose: 1 puff Documented By: SHMUEL Melatonin (Melatonin 3 Mg Tablet) 6 mg PO BEDTIME PRN PRN Reason: Insomnia Last Admin: 10/20/22 23:37 Dose: 6 mg Documented By: JODEE Methylprednisolone Sodium Succinate (Methylprednisolone Sod Succ 40 Mg/Ml Vial) 40 mg IVPUSH Q12H [facility] Last Admin: 10/22/22 08:50 Dose: 40 mg Documented By: RAYMOND Ondansetron HCl (Ondansetron Hcl 4 Mg/2 Ml Vial) 4 mg IVPUSH Q8H PRN PRN Reason: Nausea and Vomiting Pharmacy Consult (Consult Rx Perform Med Rec) 1 each MISCELLANE ONCE PRN PRN Reason: Consult order Sodium Chloride (0.9 % Sodium Chloride Flush 3 Ml Syringe) 3 ml IVFLUSH QSHIFT [facility] Last Admin: 10/22/22 08:50 Dose: 3 ml Documented By: RAYMOND Sucralfate (Sucralfate Oral Suspension 1 Gm/10 Ml Oral.Susp) 1 gm PO QIDACHS [facility] Last Admin: 10/22/22 08:50 Dose: 1 gm Documented By: RAYMOND Labs 10/22/22 06:13 10/22/22 08:08 Labs: Laboratory Results - last 24 hr 10/22/22 10/22/22 10/22/22 03:59 06:13 08:08 MCV 80.1 MCH 22.3 L MCHC 27.9 L RDW 28.8 H Plt Count 188 MPV Not Reportable Absolute Nucleated RBC 0.130 H Nucleated RBC % (auto) 1.5 H VBG pH 7.47 H VBG pCO2 27 VBG pO2 85 VBG HCO3 20 L VBG O2 Saturation 99.0 VBG Base Excess -2.2 Anion Gap 11 L Estim Creat Clear Calc 82.2 Estimated GFR > 60 Random Glucose 95 Calcium 8.8 B-Natriuretic Peptide 10/22/22 08:08 MCV MCH MCHC RDW Plt Count MPV Absolute Nucleated RBC Nucleated RBC % (auto) VBG pH VBG pCO2 VBG pO2 VBG HCO3 VBG O2 Saturation VBG Base Excess Anion Gap Estim Creat Clear Calc Estimated GFR Random Glucose Calcium B-Natriuretic Peptide 2477 H Assessment and Plan (1) AAA (abdominal aortic aneurysm) without rupture: Status: Acute (2) SAYDA (acute kidney injury): Status: Acute (3) ABLA (acute blood loss anemia): Status: Acute Plan This is a 72-year-old male with a PMH significant for hx of atrial flutter on Eliquid, COPD, HFpEF, BPH, and HLD who presents to the ED with?worsening lightheadedness, dizziness, and history of recent falls for the past 2 weeks found to have acute on chronic hypoxic respiratory failure in the setting blood loss anemia. Oropharyngeal lesion discussed with IR provider re possible biopsy>rec obtaining neck and chest CT no further bleeding noted No lymph nodes noted on neck CT, will need outpatient ENT follow-up Acute on chronic hypoxic respiratory failure related to acute blood loss anemia chest CT without acute pulmonary changes - severe emphysema On 6 L home O2 at baseline, now on 10L IV steroid added scheduled duonebs Chest CTA negative for PE, showing small bilateral pleural effusions BNP is elevated, will try IV Lasix 40 mg IV b.i.d. Acute blood loss anemia . Stable H&H at this time Stool occult positive s/p IV protonix Hold Eliquis, aspirin s/p EGD 10/20/22> oropharyngeal lesion likely source of bleeding, needs ENT evaluation o/p Supratherapeutic INR INR 6.9 at time of presentation Received 1 unit PRBCs 10/18, will transfuse additional unit Will hold Eliquis INR 2.5 today elevated LFTs/transaminitis CT showing normal liver on imaging follow LFTs Elevated bilirubin, possibly related to bleeding HFpEF Patient's BNP elevated 2693, but does not appear fluid overloaded and no respiratory symptoms Patient received 60 mg of Lasix in ED Will hold on additional Lasix for now AAA CT of abdomen and pelvis found 6.1 cm infrarenal abdominal aortic aneurysm seen by Vascular surgery - outpatient follow up SAYDA. Resolved Likely secondary to blood loss Follow BMP avoid nephrotoxins Atrial flutter EKG showed sinus rhythm with first-degree AV block Hold Eliquis d/t anemia Hold digoxin, metoprolol d/t soft BP, resume as indicated BPH Continue tamsulosin HTN BP soft, hold all anti-hypertensives for now Resume as warranted HLD Hold statins d/t elevated LFTs DNR/DNI Attending:?Dr Miller DVT Prophylaxis: INR currently suprtherapeutic,boots due to GI bleeding continued hopsital stay for treatment of?COPD and CHF exacerbations. Time Spent With Patient Time: Total time managing care of this patient today ____ minutes. Quality Stroke Does the patient have a stroke diagnosis?: No VTE Prior VTE?: No VTE Risk Level:: Medical - moderate - high VTE Device Contraindication: N/A - Device Ordered VTE Drug Contraindication: Treatment Not Indicated
--- NOTE | 2022-10-22 12:15 | PC.NURSE ---
Spoke with Provider Merlene Valentin regarding titrating patinets o2 down from 10L. Attempted to titrate o2 down to 8L this AM, pt o2 dropped to 79%, pt asymptomatic at this time, o2 titrated back up to 10L but took pt several minutes to recover back up to 88-90%. Provider aware, new orders for Solu-Medrol and Lasix administered as ordered. Pt voiding in urinal total, of 575ML of concentrated yellow urine voided as of 12:20. CTA ordered Pt aware, consent signed. Pt educated on importance of participating in PT and getting out of bed into chair, despite education patient refused provider aware. All needs met at this time all safety measures in place.
--- NOTE | 2022-10-22 14:56 | MHC.CM.PN ---
PER MD ROUNDS, PT NOT YET READY FOR DC DCP REMAINS HOME WITH RESUMPTION OF SUPPORTS FRIEND/HCP TO TRANSPORT * A NEW HCP WAS COMPLETED THE ONE ON FILE WAS INVALID DUE TO LACK OF WITNESS SIGNATURE
[2022-10-22] MEDS: Furosemide 40 MG/4 ML VIAL IVPUSH (17:53)
[2022-10-22 19:03] LABS: Haptoglobin 89 mg/dL (43-212)
[2022-10-23] VITALS (9 sets, daily range): BP systolic 86–110; BP diastolic 50–58; PULSE 54–107; RESP 16–20; TEMP 35.9–36.6; O2SAT 89–94
[2022-10-23] MEDS: Fluticasone/Umeclidinium/Vilanterol 200/62.5/25 BLST.W.DEV 1 PUFF INHALE (07:40)
[2022-10-23] MEDS: Albuterol/Iprat 2.5/0.5MG 3 ML AMPUL.NEB INHALE ×4 (07:41→20:53)
[2022-10-23] MEDS: methylPREDNISolone Sod Succ 40 MG/ML VIAL IVPUSH ×2 (07:52→20:37)
[2022-10-23] MEDS: Furosemide 40 MG/4 ML VIAL IVPUSH ×2 (07:52→17:11)
[2022-10-23] MEDS: Sucralfate Oral Suspension 1 GM/10 ML ORAL.SUSP PO ×4 (07:52→20:37)
--- NOTE | 2022-10-23 08:35 | PM.CNPUL ---
History of Present Illness History of Present Illness Consult date: 10/23/22 Chief complaint: Anemia, GI bleed Narrative: This is an in-patient pulmonary consultation. The Pt is a 72-year-old male with a PMH significant for hx of atrial flutter on Eliquid, COPD, HFpEF, BPH, and HLD who presents to the ED with?worsening lightheadedness, dizziness, and history of recent falls for the past 2 weeks.? Patient states that he has been experiencing dizziness and lightheadedness especially with bending over the past couple of weeks.? Has fallen a couple of times including at least twice this morning.? Patient denies striking his head or losing consciousness.? Reports falling on his right side.? Denies any trauma to the area for any associated musculoskeletal pain.? Says no pain with ambulation.? Patient is on 6 L of O2 at home, reports chronic SOB that is essentially at baseline.? Patient does note that he has been losing weight the past 2 months which he ascribes to not having as much of an appetite as before and eating less.? Denies nausea, vomiting, abdominal pain.? Does not report any active bleeding.? Patient states he never looks at his stool so is unable to comment on melena or hematochezia.? Denies chest pain/pressure, palpitations. In the ED patient was afebrile but tachypneic up to 24, BP a little soft as low as 92/55, satting at 87% O2 on 6L NC. Labs were significant for H&H of 6.8/27.7, INR 6.9, BUN of 60, creatinine 1.56, lactic acid 2.3, hyperbilirubinemia of 1.6, AST of 71, ALT 94, BNP of 2693, albumin 3.0. Stool positive for occult blood.? CXR showed possible small left pleural effusion with increased interstitial markings, suggestive of mild CHF or interstitial lung disease.? CT of chest and abdomen/pelvis found no acute traumatic finding of chest, abdomen, or pelvis, but did show severe emphysema with small right pleural effusion with associated atelectasis.? Also found 6.1 cm infrarenal abdominal aortic aneurysm, and unchanged 0.6 cm right lower lobe nodule. A for a the patient was admitted to the hospital was given a transfusion. Hemoglobin now is 9. Still the patient is very hypoxic requiring 10 L nasal cannula and actually still desaturates down to 78% with minimal activity working with physical therapy on the 10 L. he has been diuresing but not having much fluid removal. I did review his last echocardiogram from back in April 2022 demonstrating elevated pulmonary arterial pressures suggestive of pulmonary hypertension. She he has a preserved EF and has pulmonary hypertension out of proportion to his underlying COPD. Therefore treating his pulmonary hypertension may be reasonable to see if we can improve his overall pulmonary status. Review of Systems Review of Systems: Yes all other systems are reviewed and are negative Constitutional: Constitutional: Reports as per HPI and Reports no additional constitutional complaints Eyes: Eyes: Reports as per HPI and Denies no additional eye complaints ENT: Denies system reviewed and no additional complaints, except as documented and Reports as per HPI Cardiovascular: Cardiovascular: Reports as per HPI, Reports no additional cardiovascular complaints, Denies acrocyanosis, Denies cool extremities, Denies chest pain, Denies leg edema, Denies lightheadedness, Denies palpitations and Reports dyspnea Respiratory: Respiratory: Reports as per HPI and Reports dyspnea Gastrointestinal: Gastrointestinal: Reports as per HPI and Denies no additional gastrointestinal complaints Genitourinary: Genitourinary: Reports no additional male genitourinary complaints and Reports as per HPI Musculoskeletal: Musculoskeletal: Reports no additional musculoskeletal complaints and Reports as per HPI Integumentary/Breasts: Skin/Breast: Reports system reviewed and no additional complaints, except as docu Neurologic: Reports system reviewed and no additional complaints, except as documented and Reports as per HPI Psychiatric: Psychiatric: Reports no additional psychiatric complaints and Reports as per HPI Endocrine: Endocrine: Reports no additional endocrine complaints, Reports as per HPI and Denies palpitations Hematologic/Lymphatic: Hematologic/Lymphatic: Reports no additional hematologic/lymphatic complaints and Reports as per HPI Allergic/Immunologic: Allergic/Immunologic: Reports no additional allergic/immunologic complaints and Reports as per HPI [facility] Past Medical History Medical History (Updated 10/23/22 @ 08:41 by Clarke Valentin MD) BPH (benign prostatic hyperplasia) COPD (chronic obstructive pulmonary disease) COPD (chronic obstructive pulmonary disease) HTN (hypertension) Hypoxemia Pleural effusion Pulmonary arterial hypertension Family History Family History Other CAD (coronary artery disease) Surgical History Surgical History (Updated 10/19/22 @ 15:35 by Valerie Medeiros MD) H/O hernia repair Social History Social History Household Members: None Housing: Other Housing Other:: mobile home Do you presently have visiting nurse or other home services: No Alcohol intake: current Alcohol intake frequency: holidays/special occasions only Patient Tobacco Use Status: Former Tobacco user Quit Date: 15 years ago service: No Current occupational status: retired and disabled Meds Allergies Allergy/AdvReac Type Severity Reaction Status Date / Time No Known Allergies Allergy Verified 05/28/22 10:05 Active Medications: Current Medications Acetaminophen (Acetaminophen 325 Mg Tablet) 650 mg PO Q6H PRN PRN Reason: Pain, Mild (Pain Scale 1-3) Last Admin: 10/19/22 08:07 Dose: 650 mg Albuterol Sulfate (Albuterol Sulfate 90 Mcg 8 Gm Inhaler) 1 puff INHALE QID PRN PRN Reason: sob Albuterol/Ipratropium (Albuterol/Iprat 2.5/0.5mg 3 Ml Ampul.Neb) 3 ml INHALE RQ4H WHILE AWAKE [facility] Last Admin: 10/23/22 07:41 Dose: 3 ml Albuterol/Ipratropium (Albuterol/Iprat 2.5/0.5mg 3 Ml Ampul.Neb) 3 ml INHALE Q4H PRN PRN Reason: Wheezing Fluticasone/Umeclidinium/Vilanterol (Fluticasone/Umeclidinium/Vilanterol 200/62.5/25 Blst.W.Dev) 1 puff INHALE RDAILY [facility] Last Admin: 10/23/22 07:40 Dose: 1 puff Furosemide (Furosemide 40 Mg/4 Ml Vial) 40 mg IVPUSH BID@0900,1800 [facility]; Protocol Last Admin: 10/23/22 07:52 Dose: 40 mg Melatonin (Melatonin 3 Mg Tablet) 6 mg PO BEDTIME PRN PRN Reason: Insomnia Last Admin: 10/20/22 23:37 Dose: 6 mg Methylprednisolone Sodium Succinate (Methylprednisolone Sod Succ 40 Mg/Ml Vial) 40 mg IVPUSH Q12H [facility] Last Admin: 10/23/22 07:52 Dose: 40 mg Ondansetron HCl (Ondansetron Hcl 4 Mg/2 Ml Vial) 4 mg IVPUSH Q8H PRN PRN Reason: Nausea and Vomiting Pharmacy Consult (Consult Rx Perform Med Rec) 1 each MISCELLANE ONCE PRN PRN Reason: Consult order Sodium Chloride (0.9 % Sodium Chloride Flush 3 Ml Syringe) 3 ml IVFLUSH QSHIFT [facility] Last Admin: 10/23/22 07:52 Dose: 3 ml Sucralfate (Sucralfate Oral Suspension 1 Gm/10 Ml Oral.Susp) 1 gm PO QIDACHS [facility] Last Admin: 10/23/22 07:52 Dose: 1 gm Home Medications Medication Instructions Recorded Confirmed Last Taken Type lisinopril 10 mg tablet 1 tab PO DAILY 06/08/20 10/18/22 04/28/22 09:00 History pravastatin 40 mg tablet 1 tab PO DAILY 06/08/20 10/18/22 04/28/22 09:00 History aspirin 81 mg chewable tablet 1 tab PO DAILY 04/29/22 10/18/22 04/28/22 09:00 History fluticasone fur. 200 mcg-umeclid 1 puff inhalation DAILY 04/29/22 10/18/22 04/28/22 09:00 History 62.5 mcg-vilant 25 mcg inhalat.powder (Trelegy Ellipta) Physical Exam Vital Signs: Vital Signs: Last Vital Signs Temp 97.8 F 10/23/22 07:53 Pulse 91 10/23/22 07:53 Resp 20 10/23/22 07:53 BP 96/56 L 10/23/22 07:53 Pulse Ox 93 10/23/22 07:53 O2 Del Method Nasal Cannula 10/23/22 07:53 O2 Flow Rate 10 10/23/22 07:53 Oxygen Flow Rate 6 10/18/22 18:31 BMI result Body Mass Index 29.3 Const: General: comfortable and no acute distress Orientation/consciousness: patient oriented x3 HEENT: Other: Unremarkable Head: Yes normal to inspection Neck: Neck: Yes normal visual inspection Chest: Chest palpation & inspection: normal inspection of the chest Resp: Auscultation: diminished lung sounds Cardio: Palpation: normal PMI Heart sounds: S1 normal heart sound present, S2 normal heart sound present, no gallops, no murmurs and no rubs GI: Palpation (GI): Soft to palpation Back/Spine/Pelvis: Other: unremarkable Skin: General skin exam: no rashes or lesions noted Neuro: General: patient oriented x3 Extrem: General: Yes normal to inspection Psych: Mental Status: mental status grossly normal Results Laboratory Findings 10/22/22 06:13 10/22/22 08:08 ABG, PT/INR, D-dimer: PT/INR, D-dimer PT 30.0 SEC (10.0-13.1) H 10/20/22 06:04 INR 2.5 (0.9-1.1) H 10/20/22 06:04 Abnormal lab findings: Abnormal Labs 10/18/22 10/18/22 10/18/22 19:02 19:05 19:05 WBC RBC 4.01 L D Hgb 6.8 L* D Hct 27.7 L D MCV 69.1 L MCH 17.0 L MCHC 24.5 L RDW 23.9 H Immature Gran % (Auto) Neut % (Auto) 77.0 H Lymph % (Auto) 11.8 L [place] % (Auto) Lymph # (Auto) 1.0 L Abs Immat Gran (auto) Absolute Nucleated RBC 0.200 H Nucleated RBC % (auto) 2.4 H Percent Retic Immature Retic Fraction Retic Hgb Equivalent PT INR VBG pH VBG HCO3 Chloride Carbon Dioxide 19 L Anion Gap BUN 60 H Creatinine 1.56 H Lactic Acid 2.3 H* Lactic Acid F/U @ 2Hr Total Bilirubin 1.6 H Direct Bilirubin AST 71 H ALT 94 H B-Natriuretic Peptide Total Protein 5.8 L Albumin 3.0 L Crossmatch 10/18/22 10/18/22 10/18/22 19:05 19:05 19:11 WBC RBC Hgb Hct MCV MCH MCHC RDW Immature Gran % (Auto) Neut % (Auto) Lymph % (Auto) [place] % (Auto) Lymph # (Auto) Abs Immat Gran (auto) Absolute Nucleated RBC Nucleated RBC % (auto) Percent Retic Immature Retic Fraction Retic Hgb Equivalent PT 85.3 H INR 6.9 H* D VBG pH 7.46 H VBG HCO3 20 L Chloride Carbon Dioxide Anion Gap BUN Creatinine Lactic Acid Lactic Acid F/U @ 2Hr Total Bilirubin Direct Bilirubin AST ALT B-Natriuretic Peptide 2693 H Total Protein Albumin Crossmatch 10/18/22 10/18/22 10/18/22 19:35 19:35 22:37 WBC RBC Hgb 7.1 L Hct 29.1 L MCV MCH MCHC RDW Immature Gran % (Auto) Neut % (Auto) Lymph % (Auto) [place] % (Auto) Lymph # (Auto) Abs Immat Gran (auto) Absolute Nucleated RBC Nucleated RBC % (auto) Percent Retic Immature Retic Fraction Retic Hgb Equivalent PT INR VBG pH VBG HCO3 Chloride Carbon Dioxide Anion Gap BUN Creatinine Lactic Acid Lactic Acid F/U @ 2Hr 2.9 H* Total Bilirubin Direct Bilirubin AST ALT B-Natriuretic Peptide Total Protein Albumin Crossmatch See Detail 10/19/22 10/19/22 10/19/22 05:52 05:52 05:52 WBC RBC 3.54 L Hgb 6.6 L* Hct 25.4 L MCV 71.8 L MCH 18.6 L MCHC 26.0 L RDW 24.3 H Immature Gran % (Auto) 0.8 H Neut % (Auto) 75.8 H Lymph % (Auto) 9.2 L [place] % (Auto) 11.6 H Lymph # (Auto) 0.9 L Abs Immat Gran (auto) 0.07 H Absolute Nucleated RBC 0.290 H Nucleated RBC % (auto) 3.1 H Percent Retic 2.7 H Immature Retic Fraction 36.9 H Retic Hgb Equivalent 16.1 L PT 76.6 H INR 6.2 H* VBG pH VBG HCO3 Chloride 111 H Carbon Dioxide 20 L Anion Gap BUN 62 H Creatinine Lactic Acid Lactic Acid F/U @ 2Hr Total Bilirubin 4.1 H Direct Bilirubin 1.1 H AST 53 H ALT 80 H B-Natriuretic Peptide Total Protein 5.6 L Albumin 3.4 L Crossmatch 10/19/22 10/19/22 10/19/22 14:46 20:11 20:11 WBC RBC Hgb 7.8 L 9.5 L D Hct 28.5 L 33.4 L MCV MCH MCHC RDW Immature Gran % (Auto) Neut % (Auto) Lymph % (Auto) [place] % (Auto) Lymph # (Auto) Abs Immat Gran (auto) Absolute Nucleated RBC Nucleated RBC % (auto) Percent Retic Immature Retic Fraction Retic Hgb Equivalent PT 34.1 H INR 2.8 H D VBG pH VBG HCO3 Chloride Carbon Dioxide Anion Gap BUN Creatinine Lactic Acid Lactic Acid F/U @ 2Hr Total Bilirubin Direct Bilirubin AST ALT B-Natriuretic Peptide Total Protein Albumin Crossmatch 10/20/22 10/20/22 10/20/22 06:04 06:04 06:04 WBC RBC 4.23 L Hgb 9.3 L Hct 32.5 L MCV 76.8 L D MCH 22.0 L MCHC 28.6 L RDW 26.2 H Immature Gran % (Auto) 1.1 H Neut % (Auto) 77.9 H Lymph % (Auto) 8.9 L [place] % (Auto) Lymph # (Auto) 1.0 L Abs Immat Gran (auto) 0.12 H Absolute Nucleated RBC 0.220 H Nucleated RBC % (auto) 2.1 H Percent Retic Immature Retic Fraction Retic Hgb Equivalent PT 30.0 H INR 2.5 H VBG pH VBG HCO3 Chloride 112 H Carbon Dioxide 19 L Anion Gap BUN 36 H Creatinine Lactic Acid Lactic Acid F/U @ 2Hr Total Bilirubin 6.0 H Direct Bilirubin 2.0 H AST 42 H ALT 70 H B-Natriuretic Peptide Total Protein 5.2 L Albumin 3.0 L Crossmatch 10/21/22 10/21/22 10/21/22 06:05 06:05 08:52 WBC 11.2 H RBC 4.49 L Hgb 9.9 L Hct 35.5 L MCV 79.1 L MCH 22.0 L MCHC 27.9 L RDW 27.5 H Immature Gran % (Auto) Neut % (Auto) Lymph % (Auto) [place] % (Auto) Lymph # (Auto) Abs Immat Gran (auto) Absolute Nucleated RBC 0.210 H Nucleated RBC % (auto) 1.9 H Percent Retic Immature Retic Fraction Retic Hgb Equivalent PT INR VBG pH VBG HCO3 Chloride 112 H Carbon Dioxide 20 L Anion Gap BUN 23 H Creatinine Lactic Acid Lactic Acid F/U @ 2Hr Total Bilirubin 4.3 H Direct Bilirubin 2.0 H AST ALT 56 H B-Natriuretic Peptide Total Protein 5.4 L Albumin 3.1 L Crossmatch 10/22/22 10/22/22 10/22/22 03:59 06:13 08:08 WBC RBC 4.03 L Hgb 9.0 L Hct 32.3 L MCV MCH 22.3 L MCHC 27.9 L RDW 28.8 H Immature Gran % (Auto) Neut % (Auto) Lymph % (Auto) [place] % (Auto) Lymph # (Auto) Abs Immat Gran (auto) Absolute Nucleated RBC 0.130 H Nucleated RBC % (auto) 1.5 H Percent Retic Immature Retic Fraction Retic Hgb Equivalent PT INR VBG pH 7.47 H VBG HCO3 20 L Chloride 113 H Carbon Dioxide 19 L Anion Gap 11 L BUN 18 H Creatinine Lactic Acid Lactic Acid F/U @ 2Hr Total Bilirubin Direct Bilirubin AST ALT B-Natriuretic Peptide Total Protein Albumin Crossmatch 10/22/22 08:08 WBC RBC Hgb Hct MCV MCH MCHC RDW Immature Gran % (Auto) Neut % (Auto) Lymph % (Auto) [place] % (Auto) Lymph # (Auto) Abs Immat Gran (auto) Absolute Nucleated RBC Nucleated RBC % (auto) Percent Retic Immature Retic Fraction Retic Hgb Equivalent PT INR VBG pH VBG HCO3 Chloride Carbon Dioxide Anion Gap BUN Creatinine Lactic Acid Lactic Acid F/U @ 2Hr Total Bilirubin Direct Bilirubin AST ALT B-Natriuretic Peptide 2477 H Total Protein Albumin Crossmatch Microbiology: Microbiology 10/18/22 19:16 Blood - Venous Blood Culture - Preliminary No growth after 48 hours. 10/18/22 19:05 Blood - Venous Blood Culture - Preliminary No growth after 48 hours. Assessment and Plan (1) Pulmonary arterial hypertension: Status: Acute (2) COPD (chronic obstructive pulmonary disease): Qualifiers: COPD type: emphysema Emphysema type: centrilobular Qualified Code(s): J43.2 - Centrilobular emphysema Status: Acute (3) Pleural effusion: Status: Acute Plan The the the the patient is presenting with worsening acute on chronic hypoxic respiratory failure. He was already on 6 L baseline oxygen at home. Based on his echocardiogram appears to have a component of moderate severe pulmonary hypertension. The patient has pulmonary hypertension out of proportion to his COPD. Appears to be mildly jaundice likely from his right-sided heart failure. Is not responding as well to diuresis any longer. Recommendations: Continue diuresis as tolerated Start sildenafil 20 mg p.o. t.i.d. for pulmonary hypertension, will monitor closely his oxygen requirements Continue prednisone for now Continue respiratory therapy Oxygen supplementation to maintain a pulse ox above 88% Will plan to repeat the echocardiogram once he is tolerating the sildenafil Will follow closely Time Spent With Patient Time: Total time managing care of this patient today ____ minutes. Procedures Date of Service Date of Service: 10/23/22
--- NOTE | 2022-10-23 08:41 | P.PNIM_ITS ---
Subjective Subjective Date of Service: 10/23/22 Interval History: seen and examined this morning follow up for dizziness, anemia dizziness resolved no sob, cough, abdominal pain. denies melena, hematuria Review of Systems Review of Systems: Yes all other systems are reviewed and are negative Constitutional Constitutional: Denies chills and Denies fever(s) ENT Ears, Nose, Mouth, and Throat: Reports dizziness Cardiovascular Cardiovascular: Denies chest pain, Denies palpitations and Denies dyspnea Respiratory Respiratory: Denies cough and Denies dyspnea Gastrointestinal Gastrointestinal: Denies abdominal pain, Denies diarrhea, Denies nausea and Denies vomiting Neurologic Neurologic: Reports dizziness Endocrine Endocrine: Denies palpitations Physical Exam Vital Signs: Vital Signs: Last Vital Signs Temp 97.8 F 10/23/22 07:53 Pulse 91 10/23/22 07:53 Resp 20 10/23/22 07:53 BP 96/56 L 10/23/22 07:53 Pulse Ox 93 10/23/22 07:53 O2 Del Method Nasal Cannula 10/23/22 07:53 O2 Flow Rate 10 10/23/22 07:53 Oxygen Flow Rate 6 10/18/22 18:31 BMI result Body Mass Index 29.3 Appearing in no acute distress lung sounds are clear to auscultation heart regular rate rhythm, clear S1, S2 positive bowel sounds, abdomen is soft, nontender neuro patient is alert x3, no focal deficits Objective Data Active Medications Acetaminophen (Acetaminophen 325 Mg Tablet) 650 mg PO Q6H PRN PRN Reason: Pain, Mild (Pain Scale 1-3) Last Admin: 10/19/22 08:07 Dose: 650 mg Documented By: YOLA Albuterol Sulfate (Albuterol Sulfate 90 Mcg 8 Gm Inhaler) 1 puff INHALE QID PRN PRN Reason: sob Albuterol/Ipratropium (Albuterol/Iprat 2.5/0.5mg 3 Ml Ampul.Neb) 3 ml INHALE RQ4H WHILE AWAKE [facility] Last Admin: 10/23/22 07:41 Dose: 3 ml Documented By: SHMUEL Albuterol/Ipratropium (Albuterol/Iprat 2.5/0.5mg 3 Ml Ampul.Neb) 3 ml INHALE Q4H PRN PRN Reason: Wheezing Fluticasone/Umeclidinium/Vilanterol (Fluticasone/Umeclidinium/Vilanterol 200/62.5/25 Blst.W.Dev) 1 puff INHALE RDAILY [facility] Last Admin: 10/23/22 07:40 Dose: 1 puff Documented By: SHMUEL Furosemide (Furosemide 40 Mg/4 Ml Vial) 40 mg IVPUSH BID@0900,1800 [facility]; Protocol Last Admin: 10/23/22 07:52 Dose: 40 mg Documented By: IVAN Melatonin (Melatonin 3 Mg Tablet) 6 mg PO BEDTIME PRN PRN Reason: Insomnia Last Admin: 10/20/22 23:37 Dose: 6 mg Documented By: JODEE Methylprednisolone Sodium Succinate (Methylprednisolone Sod Succ 40 Mg/Ml Vial) 40 mg IVPUSH Q12H [facility] Last Admin: 10/23/22 07:52 Dose: 40 mg Documented By: IVAN Ondansetron HCl (Ondansetron Hcl 4 Mg/2 Ml Vial) 4 mg IVPUSH Q8H PRN PRN Reason: Nausea and Vomiting Pharmacy Consult (Consult Rx Perform Med Rec) 1 each MISCELLANE ONCE PRN PRN Reason: Consult order Sildenafil Citrate (Sildenafil Citrate 20 Mg Tablet) 20 mg PO TID [facility] Sodium Chloride (0.9 % Sodium Chloride Flush 3 Ml Syringe) 3 ml IVFLUSH QSHIFT [facility] Last Admin: 10/23/22 07:52 Dose: 3 ml Documented By: IVAN Sucralfate (Sucralfate Oral Suspension 1 Gm/10 Ml Oral.Susp) 1 gm PO QIDACHS [facility] Last Admin: 10/23/22 07:52 Dose: 1 gm Documented By: IVAN Labs 10/22/22 06:13 10/22/22 08:08 Labs: Laboratory Results - last 24 hr 10/19/22 10/22/22 10/22/22 10:02 08:08 08:08 Haptoglobin 89 Anion Gap 11 L Estim Creat Clear Calc 82.2 Estimated GFR > 60 Random Glucose 95 Calcium 8.8 B-Natriuretic Peptide 2477 H Assessment and Plan (1) Pleural effusion: Status: Acute Plan This is a 72-year-old male with a PMH significant for hx of atrial flutter on Eliquid, COPD, HFpEF, BPH, and HLD who presents to the ED with?worsening lightheadedness, dizziness, and history of recent falls for the past 2 weeks found to have acute on chronic hypoxic respiratory failure in the setting blood loss anemia. Acute on chronic hypoxic respiratory failure On 6 L home O2 at baseline, now on 10L IV steroids BID scheduled duonebs Chest CTA negative for PE, showing small bilateral pleural effusions BNP is elevated, continue IV Lasix 40 mg IV b.i.d. Pulm consult> rec diuresis and steroids for now and re-assess repeat CXR tomorrow to assess for improvement or worsening effusions HFpEF Patient's BNP elevated 2693 may be impacting resp status continue lasix 40mg BID Oropharyngeal lesion discussed with IR provider re possible biopsy>rec obtaining neck and chest CT no further bleeding noted No lymph nodes noted on neck CT, will need outpatient ENT follow-up Acute blood loss anemia . Stable H&H at this time Stool occult positive s/p IV protonix Hold Eliquis, aspirin s/p EGD 10/20/22> oropharyngeal lesion likely source of bleeding, needs ENT evaluation o/p Supratherapeutic INR. resolved INR 6.9 at time of presentation Received 1 unit PRBCs 10/18, will transfuse additional unit INR 2.5 elevated LFTs/transaminitis CT showing normal liver on imaging follow LFTs Elevated bilirubin, possibly related to bleeding AAA CT of abdomen and pelvis found 6.1 cm infrarenal abdominal aortic aneurysm seen by Vascular surgery - outpatient follow up SAYDA. Resolved Likely secondary to blood loss Follow BMP avoid nephrotoxins Atrial flutter EKG showed sinus rhythm with first-degree AV block Hold digoxin, metoprolol d/t soft BP, resume as indicated eliquis held due to anemia, will resume today BPH Continue tamsulosin HTN BP soft, hold all anti-hypertensives for now Resume as warranted HLD Hold statins d/t elevated LFTs DNR/DNI Attending:?Dr Miller DVT Prophylaxis: INR currently suprtherapeutic,boots due to GI bleeding continued hopsital stay for treatment of?COPD and CHF exacerbations. Time Spent With Patient Time: Total time managing care of this patient today ____ minutes. Quality Stroke Does the patient have a stroke diagnosis?: No VTE Prior VTE?: No VTE Risk Level:: Medical - moderate - high VTE Device Contraindication: N/A - Device Ordered VTE Drug Contraindication: Treatment Not Indicated
--- NOTE | 2022-10-23 09:58 | HO.VASCPN ---
Subjective Subjective Date of Service: 10/23/22 Patient reports: no new complaints and feels better Interval history: Patient seen and examined. No significant events over the past few days. His overall respiratory status has significantly improved. In general appears to be doing much better. Physical Exam Vital Signs: Vital Signs: Last Vital Signs Temp 97.8 F 10/23/22 07:53 Pulse 91 10/23/22 07:53 Resp 20 10/23/22 07:53 BP 96/56 L 10/23/22 07:53 Pulse Ox 93 10/23/22 07:53 O2 Del Method Nasal Cannula 10/23/22 07:53 O2 Flow Rate 10 10/23/22 07:53 Oxygen Flow Rate 6 10/18/22 18:31 BMI result Body Mass Index 29.3 Const: General: cooperative, healthy appearing and no acute distress Orientation/consciousness: oriented to person, oriented to place and oriented to time HEENT: Head: Yes normal to inspection Neck: Carotids: no bruits Chest: Chest palpation & inspection: normal inspection of the chest Resp: Effort & Inspection: normal respiratory effort and able to speak in complete sentences Auscultation: clear to auscultation bilaterally Cardio: Rate: regular rate Heart sounds: S1 normal heart sound present and S2 normal heart sound present GI: Inspection: Yes normal to inspection Skin: General skin exam: no rashes or lesions noted Wounds: no wounds Neuro: General: oriented to person, oriented to place, oriented to time and CN's II-XI intact bilaterally Extrem: General: Yes normal to inspection, Yes full ROM and Yes no clubbing, cyanosis or edema Psych: Appearance: grossly normal and well kempt Speech and movement: Normal speech and movement present Affect: normal affect Progress Note: A&P Assessment and plan (1) AAA (abdominal aortic aneurysm) without rupture: Status: Acute Assessment and Plan: In short patient has a 6.1 cm aortic aneurysm. The concern is his overall comorbidities. I do think he is stabilizing. I did have a very tatianna discussion with him about the risks benefits complications of an operation. He would like to move forward. So once he is discharged we will coordinate workup with cardiac and pulmonary risk stratification. We did receive confirmation with 3D reconstruction of the CT scan that this is amenable to endovascular repair once again he can follow up with us as an outpatient. Thank you for allowing us to assist in his care. If there are any questions or concerns please do not hesitate to contact us. Time Spent With Patient Time: Total time managing care of this patient today ____ minutes. Procedures Date of Service Date of Service: 10/23/22 Quality Stroke Does the patient have a stroke diagnosis?: No VTE Prior VTE?: No VTE Risk Level:: Medical - moderate - high VTE Device Contraindication: N/A - Device Ordered VTE Drug Contraindication: Treatment Not Indicated
[2022-10-23] MEDS: Sildenafil Citrate 20 MG TABLET PO ×3 (10:16→20:37)
[2022-10-23] MEDS: Apixaban 5 MG TABLET PO ×2 (10:16→20:37)
--- NOTE | 2022-10-23 12:28 | MHC.CM.PN ---
EMR REVIEWED, PER HOSPITALIST PT WILL REMAIN ON IV LASIX AND IV STEROID PER PULMONOLOGY W/RE-EVAL IN AM, CM WILL CONT TO FOLLOW D/C NEEDS.
[2022-10-23] MEDS: Melatonin 3 MG TABLET 6 MG PO (20:37)
[2022-10-24] VITALS (49 sets, daily range): BP systolic 72–111; BP diastolic 42–84; PULSE 96–130; RESP 15–43; TEMP 35–38.4; O2SAT 80–96
[2022-10-24 02:00] LABS: B Type Natriuretic Peptide 1483 pg/mL (<100)
--- NOTE | 2022-10-24 02:07 | PC.NURSE ---
Pt was desating to 86% on 12L [place]. Increased to 15L oxymask and still 86%, he sometimes went up to 87,88%. Respiratory up to see Pt and confirmed it.Respiratory saying maybe highflow could be next step. Jonathan notified and ordered high flow, CXR, and labs. Pt is now on highflow 70% at 40L and satting 88-90%.
--- NOTE | 2022-10-24 05:25 | PM.EVENT ---
Event Note Date of Service: 10/24/22 Event Note: Patient's respiratory rate has been worsening overnight. Patient has now required higher levels of oxygen. Chest x-ray shows opacities possible atelectasis, started him on antibiotics. BNP improved. Discussed with his son about his guarded prognosis, at this time will monitor Time Spent With Patient Time: Total time managing care of this patient today ____ minutes.
[2022-10-24] MEDS: Morphine Sulfate 4 MG/ML CARTRIDGE IVPUSH (05:48)
[2022-10-24] MEDS: cefTRIAXone sodium 1 GM in 0.9 % Sodium Chloride 50 ML IV (05:49)
--- NOTE | 2022-10-24 06:00 | PC.NURSE ---
Pt had continued to desat into the low to mid 80s (85) on high flow 70% at 40L. Went up to 100% at 50L and sats were 85-88% and then up to 100% at 60L. He desats on minimal exertion down to 70-80%. HR was increasing to 130s. MD notified and RN asked MD to come see Pt. MD instructed to check rectal temp and ordered stat IV ABX, Lactic and blood cultures. Rectal temp was 101.2, cool compress applied to forehead. Pt was given IV morphine and PRN tylenol was given for fever.
[2022-10-24] MEDS: Azithromycin 500 MG in 0.9 % Sodium Chloride 250 ML 125 MG IV (06:35)
[2022-10-24] MEDS: Acetaminophen 325 MG TABLET 650 MG PO (06:41)
[2022-10-24] MEDS: Furosemide 100 MG/10 ML VIAL 60 MG IVPUSH (07:41)
[2022-10-24 07:50] LABS: ABG Base Excess -1.9 mmol/L; ABG HCO3 21 mmol/L (22-26); ABG pCO2 33 mmHg (32-45); ABG pH 7.42 (7.35-7.45); ABG pO2 58 mmHg (83-108)
[2022-10-24 07:54] LABS: ABG Refer to POC result
[2022-10-24 08:04] LABS: Anion Gap 19 (12-20); Blood Urea Nitrogen 22 mg/dL (9-16); Calcium 9.7 mg/dL (8.4-10.2); Carbon Dioxide 19 mmol/L (22-29); Chloride 103 mmol/L (96-108); Creatinine Clr Calc Pharmacy 76.6; Estimated Glomerular Filt Rate > 60; Glucose Random 108 mg/dL (60-115); Potassium 3.9 mmol/L (3.3-5.1); Sodium 137 mmol/L (135-145)
--- NOTE | 2022-10-24 08:04 | P.PNIM_ITS ---
Subjective Subjective Date of Service: 10/24/22 Interval History: seen and examined this morning follow up for dizziness, anemia dizziness resolved transferred to ICU for persistent hypoxia Review of Systems Review of Systems: Yes all other systems are reviewed and are negative Constitutional Constitutional: Denies chills and Denies fever(s) ENT Ears, Nose, Mouth, and Throat: Reports dizziness Cardiovascular Cardiovascular: Denies chest pain, Denies palpitations and Denies dyspnea Respiratory Respiratory: Denies cough and Denies dyspnea Gastrointestinal Gastrointestinal: Denies abdominal pain, Denies diarrhea, Denies nausea and Denies vomiting Neurologic Neurologic: Reports dizziness Endocrine Endocrine: Denies palpitations Physical Exam Vital Signs: Vital Signs: Last Vital Signs Temp 98.9 F 10/24/22 07:42 Pulse 124 H 10/24/22 07:42 Resp 22 H 10/24/22 04:31 BP 92/84 10/24/22 07:42 Pulse Ox 88 L 10/24/22 07:42 O2 Del Method High Flow Nasal C annula 10/24/22 07:42 O2 Flow Rate 60 10/24/22 07:42 FiO2 93 10/24/22 07:42 Oxygen Flow Rate 6 10/18/22 18:31 BMI result Body Mass Index 29.3 Appearing in no acute distress lung sounds rales throughout heart regular rate rhythm, clear S1, S2 positive bowel sounds, abdomen is soft, nontender neuro patient is alert x3, no focal deficits Objective Data Active Medications Acetaminophen (Acetaminophen 325 Mg Tablet) 650 mg PO Q6H PRN PRN Reason: Pain, Mild (Pain Scale 1-3) Last Admin: 10/24/22 06:41 Dose: 650 mg Documented By: CRAMEN Albuterol Sulfate (Albuterol Sulfate 90 Mcg 8 Gm Inhaler) 1 puff INHALE QID PRN PRN Reason: sob Albuterol/Ipratropium (Albuterol/Iprat 2.5/0.5mg 3 Ml Ampul.Neb) 3 ml INHALE RQ4H WHILE AWAKE SHERLYN Last Admin: 10/23/22 20:53 Dose: 3 ml Documented By: ANITHA Albuterol/Ipratropium (Albuterol/Iprat 2.5/0.5mg 3 Ml Ampul.Neb) 3 ml INHALE Q4H PRN PRN Reason: Wheezing Apixaban (Apixaban 5 Mg Tablet) 5 mg PO BID [facility] Last Admin: 10/23/22 20:37 Dose: 5 mg Documented By: CARMEN Fluticasone/Umeclidinium/Vilanterol (Fluticasone/Umeclidinium/Vilanterol 200/62.5/25 Blst.W.Dev) 1 puff INHALE RDAILY [facility] Last Admin: 10/23/22 07:40 Dose: 1 puff Documented By: SHMUEL Furosemide (Furosemide 40 Mg/4 Ml Vial) 40 mg IVPUSH BID@0900,1800 [facility]; Protocol Last Admin: 10/23/22 17:11 Dose: 40 mg Documented By: IVAN Ceftriaxone Sodium 1 gm/ (Sodium Chloride) 50 mls @ 100 mls/hr IV Q24H [facility] Last Infusion: 10/24/22 06:30 Dose: 0 mls/hr Documented By: CARMEN Azithromycin 500 mg/ Sodium (Chloride) 250 mls @ 125 mls/hr IV Q24H [facility] Last Admin: 10/24/22 06:35 Dose: 125 mls/hr Documented By: CARMEN Melatonin (Melatonin 3 Mg Tablet) 6 mg PO BEDTIME PRN PRN Reason: Insomnia Last Admin: 10/23/22 20:37 Dose: 6 mg Documented By: CARMEN Methylprednisolone Sodium Succinate (Methylprednisolone Sod Succ 40 Mg/Ml Vial) 40 mg IVPUSH Q12H [facility] Last Admin: 10/23/22 20:37 Dose: 40 mg Documented By: CARMEN Ondansetron HCl (Ondansetron Hcl 4 Mg/2 Ml Vial) 4 mg IVPUSH Q8H PRN PRN Reason: Nausea and Vomiting Pharmacy Consult (Consult Rx Perform Med Rec) 1 each MISCELLANE ONCE PRN PRN Reason: Consult order Sildenafil Citrate (Sildenafil Citrate 20 Mg Tablet) 20 mg PO TID [facility] Last Admin: 10/23/22 20:37 Dose: 20 mg Documented By: CARMEN Sodium Chloride (0.9 % Sodium Chloride Flush 3 Ml Syringe) 3 ml IVFLUSH QSHIFT [facility] Last Admin: 10/23/22 21:09 Dose: Not Given Documented By: CARMEN Non-Admin Reason: Previously Administered Sucralfate (Sucralfate Oral Suspension 1 Gm/10 Ml Oral.Susp) 1 gm PO QIDACHS [facility] Last Admin: 10/23/22 20:37 Dose: 1 gm Documented By: CARMEN Labs 10/22/22 06:13 10/22/22 08:08 Labs: Laboratory Results - last 24 hr 10/24/22 10/24/22 10/24/22 01:22 06:11 07:42 O2 Saturation 85.0 ABG pH at Pt Temp 7.42 ABG pCO2 at Pt Temp 33 ABG pO2 at Pt Temp 58 L ABG HCO3 21 L ABG Base Excess (Actual) -1.9 Lactic Acid 4.0 H* B-Natriuretic Peptide 1483 H Microbiology Microbiology Results: Microbiology 10/18/22 19:16 Blood Culture - Final Blood - Venous No growth after 5 days. 10/18/22 19:05 Blood Culture - Final Blood - Venous No growth after 5 days. Assessment and Plan (1) Pleural effusion: Status: Acute Plan This is a 72-year-old male with a PMH significant for hx of atrial flutter on Eliquid, COPD, HFpEF, BPH, and HLD who presents to the ED with?worsening lightheadedness, dizziness, and history of recent falls for the past 2 weeks found to have acute on chronic hypoxic respiratory failure in the setting blood loss anemia. Severe sepsis secondary to HCAP fever, tachycardia, tachypnea, lactic acidosis Started on Rocephin and azithromycin repeat CXR showed mild patchy bilateral opacities with smallTo moderate pleural effusion bilaterally hypoxia with sats in the 80's, placed on high flow, then CPAP ABG 7.42/33/58/21 Discussed with resp therapist> rec cpap also one dose of IV lasix 60 mg for rales throughout, gave with albumin due to low BP Patient remained persistently hypoxic, discussed case with intensive care attending, patient will be transferred to the ICU for BiPAP, possible intubation and close monitoring HFpEF Patient's BNP elevated 2693 Initially thought to be impacting respiratory status however after bedside echocardiogram it appears that the patient is not in overt failure lasix 40mg BID stopped Acute on chronic hypoxic respiratory failure hx emphysema On 6 L home O2 at baseline IV steroids BID scheduled duonebs Chest CTA negative for PE, showing small bilateral pleural effusions BNP is elevated, continue IV Lasix 40 mg IV b.i.d. Pulm consult> rec diuresis and steroids for now and re-assess Oropharyngeal lesion discussed with IR provider re possible biopsy>rec obtaining neck and chest CT no further bleeding noted No lymph nodes noted on neck CT, will need outpatient ENT follow-up Acute blood loss anemia . Stable H&H at this time Stool occult positive s/p IV protonix Hold Eliquis, aspirin s/p EGD 10/20/22> oropharyngeal lesion likely source of bleeding, needs ENT evaluation o/p Supratherapeutic INR. resolved INR 6.9 at time of presentation s/p total 2 units prbc INR 2.0 elevated LFTs/transaminitis CT showing normal liver on imaging follow LFTs Elevated bilirubin, possibly related to bleeding AAA CT of abdomen and pelvis found 6.1 cm infrarenal abdominal aortic aneurysm seen by Vascular surgery - outpatient follow up SAYDA. Resolved Likely secondary to blood loss Follow BMP avoid nephrotoxins Atrial flutter paroxysmal EKG showed sinus rhythm with first-degree AV block Hold digoxin, metoprolol d/t soft BP, resume as indicated Eliquis resumed BPH Continue tamsulosin HTN with hypotension BP soft, hold all anti-hypertensive medications HLD Hold statins d/t elevated LFTs DNR/DNI Attending:?Dr Miller DVT Prophylaxis: Walt continued hopsital stay for treatment of?COPD and CHF exacerbations. Time Spent With Patient Time: Total time managing care of this patient today ____ minutes. Quality Stroke Does the patient have a stroke diagnosis?: No VTE Prior VTE?: No VTE Risk Level:: Medical - moderate - high VTE Device Contraindication: N/A - Device Ordered VTE Drug Contraindication: Treatment Not Indicated
[2022-10-24] MEDS: Albuterol/Iprat 2.5/0.5MG 3 ML AMPUL.NEB INHALE ×4 (08:30→19:22)
[2022-10-24 08:31] LABS: Reflex Lactate? Lactic Acid Added
[2022-10-24] MEDS: methylPREDNISolone Sod Succ 40 MG/ML VIAL IVPUSH ×2 (08:45→19:22)
[2022-10-24] MEDS: Albumin Human 25 % 100 ML IV ×2 (08:56→10:28)
--- NOTE | 2022-10-24 09:06 | P.PNPL_ITS ---
Subjective Subjective Date of Service: 10/24/22 Interval history: The patient was seen on exam. Last night the patient developed fevers in addition to worsening respiratory failure and hypoxia placing on high-flow and then subsequently on CPAP 10 cm. He did have a blood gas demonstrating further hypoxia and some degree of respiratory alkalosis from his tachypnea. The patient did have an elevated lactic acid suggests some degree of sepsis. He also had a temperature of 103 her report. Blood cultures were done they are pending. Patient may have developed some degree of sepsis and worsening respiratory failure secondary to pneumonia or ARDS due to a septic picture. In the meantime the patient was started on sildenafil for pulmonary hypertension. His EF appeared to be preserved without any evidence of any valvular disease or diastolic dysfunction. In the she that she will if there is evidence of veno- occlusive disease can result in flash pulmonary edema. Not clear if this had any role. I am reassured that with the improvement in his brain atretic peptide that is less likely to be the medicine. However, in view of his worsening condition will be prudent to hold it. She continues to receive diuresis and he was started on broad-spectrum antibiotics. Objective Data Labs 10/22/22 06:13 10/24/22 07:30 Labs: Laboratory Results - last 24 hr 10/24/22 10/24/22 10/24/22 01:22 06:11 07:30 O2 Saturation ABG pH at Pt Temp ABG pCO2 at Pt Temp ABG pO2 at Pt Temp ABG HCO3 ABG Base Excess (Actual) Sodium 137 Potassium 3.9 Chloride 103 Carbon Dioxide 19 L Anion Gap 19 BUN 22 H Creatinine 0.88 Estim Creat Clear Calc 76.6 Estimated GFR > 60 Random Glucose 108 Lactic Acid 4.0 H* Calcium 9.7 D B-Natriuretic Peptide 1483 H 10/24/22 07:42 O2 Saturation 85.0 ABG pH at Pt Temp 7.42 ABG pCO2 at Pt Temp 33 ABG pO2 at Pt Temp 58 L ABG HCO3 21 L ABG Base Excess (Actual) -1.9 Sodium Potassium Chloride Carbon Dioxide Anion Gap BUN Creatinine Estim Creat Clear Calc Estimated GFR Random Glucose Lactic Acid Calcium B-Natriuretic Peptide Microbiology Microbiology Results: Microbiology 10/18/22 19:16 Blood - Venous Blood Culture - Final No growth after 5 days. 10/18/22 19:05 Blood - Venous Blood Culture - Final No growth after 5 days. Review of Systems Review of Systems Yes Unobtainable due to mental status Constitutional: Reports as per HPI and Reports fever(s) Eyes: Reports as per HPI and Denies no additional eye complaints Denies system reviewed and no additional complaints, except as documented and Reports as per HPI Cardiovascular: Reports as per HPI, Reports no additional cardiovascular complaints, Denies acrocyanosis, Denies cool extremities, Denies chest pain, Denies leg edema, Denies lightheadedness, Denies palpitations, Reports dyspnea, Reports orthopnea and Reports paroxysmal nocturnal dyspnea Respiratory: Reports as per HPI and Reports dyspnea Gastrointestinal: Reports as per HPI and Denies no additional gastrointestinal complaints Genitourinary: Reports no additional male genitourinary complaints and Reports as per HPI Musculoskeletal: Reports no additional musculoskeletal complaints and Reports as per HPI Skin/Breast: Reports system reviewed and no additional complaints, except as docu Reports system reviewed and no additional complaints, except as documented and Reports as per HPI Psychiatric: Reports no additional psychiatric complaints and Reports as per HPI Endocrine: Reports no additional endocrine complaints, Reports as per HPI and Denies palpitations Hematologic/Lymphatic: Reports no additional hematologic/lymphatic complaints and Reports as per HPI Allergic/Immunologic: Reports no additional allergic/immunologic complaints and Reports as per HPI Physical Exam Vital Signs: Vital Signs: Last Vital Signs Temp 98.9 F 10/24/22 07:42 Pulse 124 H 10/24/22 07:42 Resp 34 H 10/24/22 08:32 BP 92/84 10/24/22 07:42 Pulse Ox 88 L 10/24/22 07:42 O2 Del Method High Flow Nasal C annula 10/24/22 07:42 O2 Flow Rate 60 10/24/22 07:42 FiO2 93 10/24/22 07:42 Oxygen Flow Rate 6 10/18/22 18:31 BMI result Body Mass Index 29.3 Const: General: diaphoretic and tired appearing HEENT: Other: Unremarkable Head: Yes normal to inspection Neck: Neck: Yes normal visual inspection Chest: Chest palpation & inspection: normal inspection of the chest Resp: Auscultation: rales Cardio: Palpation: normal PMI Heart sounds: S1 normal heart sound present, S2 normal heart sound present, no gallops, no murmurs and no rubs GI: Palpation (GI): Soft to palpation Back/Spine/Pelvis: Other: unremarkable Skin: General skin exam: no rashes or lesions noted Extrem: General: Yes normal to inspection Psych: Mental Status: mental status grossly normal Procedures Date of Service Date of Service: 10/24/22 Assessment and Plan Assessment and plan (1) Acute and chronic respiratory failure with hypoxia: Status: Acute (2) Pleural effusion: Status: Acute (3) Pulmonary arterial hypertension: Status: Acute (4) Sepsis: Status: Acute (5) COPD (chronic obstructive pulmonary disease): Status: Acute (6) Pneumonia: Status: Acute Plan Pt is a DNR/DNI. I spoke to his sister and Proxy and they both want to abide by his wishes REC: Stop the Sildanefil for now. Looks like based on the drop of the BNP that it may have help some. THe issue is that if he has any veno occlussive disease it may result in worsening hypoxia. Agree with the broad spectrum abx, awaiting bcx diuresis as tolerated continue CPAP critical condition, DNR/DNI Time Spent With Patient Time: Total time managing care of this patient today ____ minutes. Progress Note: Quality Stroke Does the patient have a stroke diagnosis?: No
--- NOTE | 2022-10-24 10:04 | PC.NURSE ---
pt began desatting frequently overnight according to night RN.Patient appears slightly dusky and has coarse crackles throughout on ausculatation. patient has 2+ pitting edema to BLE. Increased WOB and abdominal breathing noted. HCP ordered 60mg IV Lasix and CPAP. Patient o2 sat after being placed on CPAP still in mid-high 80s. Currently awaiting critical care consult.
[2022-10-24] MEDS: Morphine Sulfate 2 MG/ML CARTRIDGE 1 MG IVPUSH (10:23)
[2022-10-24 11:15] LABS: ~Lactic Acid-LAB USE ONLY 5.3 mmol/L (0.5-2.0)
--- NOTE | 2022-10-24 11:15 | ECG_ITS ---
Test Reason : resp. failure Blood Pressure : / mmHG Vent. Rate : 122 BPM Atrial Rate : 122 BPM P-R Int : 184 ms QRS Dur : 116 ms QT Int : 304 ms P-R-T Axes : 077 097 -83 degrees QTc Int : 433 ms Sinus tachycardia with Premature atrial complexes Inferior-posterior infarct , age undetermined Abnormal ECG When compared with ECG of 18-OCT-2022 18:41, Premature atrial complexes are now Present MS interval has decreased Vent. rate has increased BY 48 BPM T wave inversion no longer evident in Anterior leads Referred By: Merlene Valentin Electronically Signed By:RENEE BOOTH MD
--- NOTE | 2022-10-24 12:03 | W.PM.CCCN ---
History of Present Illness Data of Consult Service Date: 10/24/22 Requesting physician: Merlene Valentin Primary Care Provider: Altaf Campos MD HPI Reason for consult: Acute hypoxic respiratory failure 72-year-old male with longstanding COPD and secondary cor pulmonale apparently presented with what appeared to be UGI bleed and on endoscopy the noted that the GI tract was essentially negative except there was an actively oozing lesion in the oropharynx so the chronic apixaban was stopped and he was transfused multiple units last time approximately 4 days before I saw him and then yesterday shortly after they initiated sildenafil for his pulmonary hypertension they called me because he was markedly tachypneic in respiratory distress and he was on BiPAP support and breathing at 28 liters/minute and markedly hyper maxx a and tiring and over the prior 24 hours with had a gradually rising BUN and creatinine and he was given an empiric diuretic which had no benefit whatsoever Bedside echo noted marked dilatation of the right ventricle with clear-cut bowing of the interventricular septum towards the left ventricle evidence of diminished diastolic reserve of the left ventricle no significant primary valve or pericardial disease and without a distinct infiltrate on chest x-ray we proceeded to CAT scan of his chest and then transferred to the ICU given his diminished urine output and increasing BUN and creatinine and the presence of sinus tachycardia rate of 120 I explained to the patient that if he were to be intubated a might be the best right ventricular dilatation at the unloading in other words of the right ventricle that we could offer and then if need be blood pressure support with Levophed until we can figure out the the origin of this lactic acidosis and respiratory distress issue and he consented because he was tiring on the BiPAP and I proceeded with very easy smooth intubation good preservation of blood pressure because we had Levophed in the ready and we only had to use 20 mg of propofol over the 4 mg of midazolam so he was hemodynamically preserved an we were able to get away with modest volume but he required 100% FiO2 and given that level of minute ventilation and only able to achieve a a an end-tidal CO2 of 28-30 EB behave like cocaine or classic space disease but certainly make me worry about the possibility of pulmonary embolic issues but the CTA was negative at least for a major thromboembolic event I certainly could not rule out diffuse micro thrombotic issues but at this point we decided to empirically cover him as a septic given his lactate elevation Review of Systems Review of Systems: Yes Unobtainable due to mental status [facility] Past Medical History Medical History (Updated 10/24/22 @ 09:15 by Clarke Valentin MD) BPH (benign prostatic hyperplasia) COPD (chronic obstructive pulmonary disease) COPD (chronic obstructive pulmonary disease) HTN (hypertension) Hypoxemia Pleural effusion Pneumonia Pulmonary arterial hypertension Family History Family History Other CAD (coronary artery disease) Surgical History Surgical History (Updated 10/19/22 @ 15:35 by Valerie Medeiros MD) H/O hernia repair Social History Social History Household Members: None Housing: Other Housing Other:: mobile home Do you presently have visiting nurse or other home services: No Alcohol intake: current Alcohol intake frequency: holidays/special occasions only Patient Tobacco Use Status: Former Tobacco user Quit Date: 15 years ago service: No Current occupational status: retired and disabled Meds Allergies Allergy/AdvReac Type Severity Reaction Status Date / Time No Known Allergies Allergy Verified 05/28/22 10:05 Active Medications: Current Medications Albuterol Sulfate (Albuterol Sulfate 90 Mcg 8 Gm Inhaler) 1 puff INHALE QID PRN PRN Reason: sob Albuterol/Ipratropium (Albuterol/Iprat 2.5/0.5mg 3 Ml Ampul.Neb) 3 ml INHALE RQ4H WHILE AWAKE [facility] Last Admin: 10/24/22 11:15 Dose: 3 ml Albuterol/Ipratropium (Albuterol/Iprat 2.5/0.5mg 3 Ml Ampul.Neb) 3 ml INHALE Q4H PRN PRN Reason: Wheezing Fluticasone/Umeclidinium/Vilanterol (Fluticasone/Umeclidinium/Vilanterol 200/62.5/25 Blst.W.Dev) 1 puff INHALE RDAILY [facility] Last Admin: 10/24/22 08:18 Dose: Not Given Methylprednisolone Sodium Succinate (Methylprednisolone Sod Succ 40 Mg/Ml Vial) 40 mg IVPUSH Q12H [facility] Last Admin: 10/24/22 08:45 Dose: 40 mg Pharmacy Consult (Consult Rx Perform Med Rec) 1 each MISCELLANE ONCE PRN PRN Reason: Consult order Sodium Chloride (0.9 % Sodium Chloride Flush 3 Ml Syringe) 3 ml IVFLUSH QSHIFT [facility] Last Admin: 10/24/22 08:56 Dose: 3 ml Sucralfate (Sucralfate Oral Suspension 1 Gm/10 Ml Oral.Susp) 1 gm PO QIDACHS [facility] Last Admin: 10/24/22 10:12 Dose: Not Given Home Medications Medication Instructions Recorded Confirmed Last Taken Type lisinopril 10 mg tablet 1 tab PO DAILY 06/08/20 10/18/22 04/28/22 09:00 History pravastatin 40 mg tablet 1 tab PO DAILY 06/08/20 10/18/22 04/28/22 09:00 History aspirin 81 mg chewable tablet 1 tab PO DAILY 04/29/22 10/18/22 04/28/22 09:00 History fluticasone fur. 200 mcg-umeclid 1 puff inhalation DAILY 04/29/22 10/18/22 04/28/22 09:00 History 62.5 mcg-vilant 25 mcg inhalat.powder (Trelegy Ellipta) Physical Exam Vital Signs: Vital Signs: Last Vital Signs Temp 98.9 F 10/24/22 07:42 Pulse 120 H 10/24/22 11:16 Resp 43 H 10/24/22 11:17 BP 92/84 10/24/22 07:42 Pulse Ox 88 L 10/24/22 07:42 O2 Del Method High Flow Nasal C annula 10/24/22 07:42 O2 Flow Rate 60 10/24/22 07:42 FiO2 93 10/24/22 07:42 Oxygen Flow Rate 6 10/18/22 18:31 BMI result Body Mass Index 29.3 He had good cognitive function and answered questions but was in marked respiratory distress and tachypneic and hyper been E echo and very close to maximum voluntary ventilatory capacity Bedside echo showing predominant right heart failure but cleared diastolic dysfunction of the left ventricle Abdomen was soft nontender no diarrhea no nausea no vomiting Skin intact no cellulitis no livedo no acrocyanosis no tics or other bites Results Labs 10/22/22 06:13 10/24/22 07:30 Labs: BMP 10/24/22 07:30 Sodium 137 Potassium 3.9 Chloride 103 Carbon Dioxide 19 L BUN 22 H Creatinine 0.88 Calcium 9.7 D Microbiology Microbiology Results: Microbiology 10/18/22 19:16 Blood - Venous Blood Culture - Final No growth after 5 days. 10/18/22 19:05 Blood - Venous Blood Culture - Final No growth after 5 days. Assessment and Plan (1) Pneumonia: Status: Acute (2) Sepsis: Status: Acute (3) Acute and chronic respiratory failure with hypoxia: Status: Acute (4) Pleural effusion: Status: Acute (5) Pulmonary arterial hypertension: Status: Acute (6) Anemia: Status: Acute (7) Chronic right heart failure: Status: Acute (8) Atrial flutter: Status: Acute (9) Preoperative cardiovascular examination: Status: Acute (10) AAA (abdominal aortic aneurysm) without rupture: Status: Acute (11) Acute on chronic anemia: Status: Acute (12) Chronic anticoagulation: Status: Acute (13) CHF exacerbation: Status: Acute (14) SAYDA (acute kidney injury): Status: Acute (15) ABLA (acute blood loss anemia): Status: Acute (16) Acute and chronic respiratory failure: Qualifiers: Respiratory failure complication: hypoxia Qualified Code(s): J96.21 - Acute and chronic respiratory failure with hypoxia Status: Acute (17) Atrial flutter with rapid ventricular response: Status: Acute (18) CHF exacerbation: Qualifiers: Heart failure type: unspecified Qualified Code(s): I50.9 - Heart failure, unspecified Status: Acute (19) Morbid obesity: Status: Acute (20) Congestive heart failure: Status: Acute (21) Hypoxemia: Status: Acute (22) COPD (chronic obstructive pulmonary disease): Qualifiers: COPD type: emphysema Emphysema type: centrilobular Qualified Code(s): J43.2 - Centrilobular emphysema Status: Acute (23) COPD with exacerbation: Status: Acute Plan So I will continue empiric antibiotic coverage maintain blood pressure support the no for renal perfusion and if need be will secondarily add vasopressin and at this point my bedside sonogram revealed that this was too small a shelf of fluid to safely put in in needle so so will wait and the no just culture what we can that is available and and empirically cover including obtaining a tick panel Time Spent With Patient Time: Total time managing care of this patient today 60____ minutes.
[2022-10-24 12:07] LABS: Reflex Lactate? 2 Y
[2022-10-24 12:11] LABS: Prothrombin Time 23.1 SEC (10.0-13.1)
[2022-10-24 12:33] LABS: Troponin-I High Sensitivity 85.2 ng/L (<3.5-35.0)
[2022-10-24 12:56] LABS: ~Lactic Acid-LAB USE ONLY 5.7 mmol/L (0.5-2.0)
[2022-10-24 13:18] LABS: Procalcitonin 14.66 ng/mL
[2022-10-24 13:23] LABS: Erythrocyte Sedimentation Rate 2 MM/HR (0-15)
[2022-10-24 13:23] LABS: ABG Base Excess -4.8 mmol/L; ABG HCO3 18 mmol/L (22-26); ABG pCO2 28 mmHg (32-45); ABG pH 7.41 (7.35-7.45); ABG pO2 67 mmHg (83-108)
[2022-10-24] MEDS: Norepinephrine Bitartrate/D5W 8 MG/250 ML PLAST..BAG 7.96 MG IV (13:27)
[2022-10-24] MEDS: Midazolam HCl/PF 2 MG/2 ML VIAL 4 MG IVPUSH (13:51)
[2022-10-24] MEDS: Rocuronium Bromide 50 MG/5 ML VIAL IVPUSH (13:53)
[2022-10-24] MEDS: propofoL 1,000 MG/100 ML VIAL 15.28 MG IVCONT ×2 (13:57→18:46)
--- NOTE | 2022-10-24 14:30 | MHC.CM.PN ---
EMR REVIEWED, PT W/PERSISTENT HYPOXIA TRANSFERRED BACK TO ICU, ANTIC PT WILL NEED PT EVAL FOR DISPO, CM WILL CONT TO FOLLOW D/C NEEDS.
--- NOTE | 2022-10-24 15:02 | W.PM.CCHP ---
Procedures Date of Service Date of Service: 10/24/22 Central Line Placement Left IJ: Central Line Comments: patient in respiratory extremis on on maximum BiPAP support FiO2 100% oxygen saturation 85% in acute right heart failure with hypotension and elevated lactate needed central line placement for Levophed and CVP follow-up explained to patient and family all of who m consented after sterilization and and prep and using ultrasound guidance gained easy entry into the left internal jugular vein passing retrograde with Seldinger technique J tipped guidewire over which a triple-lumen central venous pressure catheter 20 cm length was placed x-ray corroboration that was to superior vena cava without complication no bleeding Consent for Procedure: Elective - informed consent obtained Time out performed: Yes Sterile Technique Used: Yes Patient placed on monitor/pulse ox: Yes prep: mask, gown and gloves Central line prep: Chlorhexidine scrub Local anesthesia used: lidocaine 1% Ultrasound used for placement: Yes Central line lumen inserted: triple Post procedure: sutured in place, good blood return, all ports aspirated, flushed, capped and sterile dressing applied Post procedure x-ray: tip of catheter in good position and no pneumothorax seen Patient tolerated procedure: well and no complications Complications: none
--- NOTE | 2022-10-24 15:04 | W.PM.CCHP ---
Procedures Date of Service Date of Service: 10/24/22 Intubation Intubation Comments: on maximum BiPAP support remained hypoxic with minute ventilation of over 28 L pulling tidal volumes of 1200 cc with marked accessory muscle as well as diaphragmatic effort patient claimed to be tiring and was very excepting of in intubation Consent for Procedure: Elective - informed consent obtained Time out performed: Yes Sedative: versed Paralytic: rocuronium Laryngoscope: fiber optic video scope ET tube size: 7.5 ET tube uncuffed: No Tube secured depth (cm): 24 Tube secured location: lips Tube placement confirmation: visualized tube passing through cords, equal breath sounds bilaterally, no breath sounds over epigastrium and confirmation by capnometry Patient tolerated procedure: well and no complications Intubation complications: none
--- NOTE | 2022-10-24 18:29 | PC.NURSE ---
Patient transferred [place] the [place] [facility] Patient awake and appropriate on arrival. Answering questions appropriately. On Bipap not tolerating well. Dr Greer spoke with patient and family about intubation and they agreed to proceed with intubation at this time. Patient intubated with #7.5 ET tube 23 at the lip. Tolerating AC settings. Left IJ TLC central line inserted at bedside. OG inserted. CXR confirmed all lines in correct location. EKG completed. Sinus tachycardia with BBB. HR 120's. SBP 70's on arrival. Levophed started and titrated up to keep MAP >65. Bishop inserted #16 Fr for accurate I&O per Dr Greer. Afebrile. Lactic 5.7. Tube feeds started with water bolus. Safety maintained. See assessment documentation.
[2022-10-24] MEDS: Norepinephrine Bitartrate/D5W 8 MG/250 ML PLAST..BAG 47.76 MG IV (18:47)
[2022-10-24 20:28] LABS: VBG Base Excess -4.8 mmol/L; VBG HCO3 23 mmol/L (22-26); VBG pCO2 54 mmHg; VBG pH 7.23 (7.32-7.43); VBG pO2 116 mmHg
[2022-10-24 20:31] LABS: Venous Blood Gas Refer to POC result
[2022-10-24 20:37] LABS: Lactic Acid 3.2 mmol/L (0.5-2.0)
[2022-10-24 20:43] LABS: Anion Gap 18 (12-20); Blood Urea Nitrogen 34 mg/dL (9-16); Calcium 9.1 mg/dL (8.4-10.2); Carbon Dioxide 20 mmol/L (22-29); Chloride 102 mmol/L (96-108); Creatinine Clr Calc Pharmacy 34.7; Estimated Glomerular Filt Rate 34; Glucose Random 189 mg/dL (60-115); Potassium 3.5 mmol/L (3.3-5.1); Sodium 136 mmol/L (135-145)
[2022-10-24] MEDS: Chlorhexidine Gluc Oral Rinse 15 ML MOUTHWASH BUCCAL (20:43)
[2022-10-24] MEDS: Sucralfate Oral Suspension 1 GM/10 ML ORAL.SUSP PO (20:43)
[2022-10-24 21:02] LABS: Procalcitonin 26.44 ng/mL
[2022-10-24] MEDS: Norepinephrine Bitartrate/D5W 8 MG/250 ML PLAST..BAG 101.88 MG IV (21:11)
[2022-10-24] MEDS: Vasopressin 20 UNIT/100 ML INFUS..BTL 12 UNIT IV (21:41)
[2022-10-24] MEDS: vancomycin HCL 1,250 MG in 0.9 % Sodium Chloride 250 ML 166.67 MG IV (21:50)
[2022-10-24 22:19] LABS: Reflex Lactate? Lactic Acid Added
[2022-10-24 22:38] LABS: Appearance Urine Clear; Color Urine Dark Yellow; Glucose Urine UA Negative (Negative); Leukocyte Esterase Urine Trace (Negative); Nitrite Urine Negative (Negative); PH 5.5 (5.0-9.0); Specific Gravity - Urine 1.015 (1.005-1.025); UMIC TRIGGER UA YES; Urine Blood Negative (Negative); Urine Ketones Negative (Negative); Urine Protein 30 (1+) mg/dL (Neg-Trace)
[2022-10-24 22:46] LABS: Bacteria Urine 4+ (None Seen); Hyaline Casts Urine 0-2 /LPF (0-2); RBC Urine >20 /HPF (0-2); Squamous Epithelial Cell Urine 0-2 /HPF (0-2); WBC Urine 0-5 /HPF (0-5)
[2022-10-24 22:53] LABS: ~Lactic Acid-LAB USE ONLY 2.9 mmol/L (0.5-2.0)
[2022-10-24] MEDS: Norepinephrine Bitartrate/D5W 8 MG/250 ML PLAST..BAG 89.15 MG IV (23:37)
[2022-10-25] VITALS (48 sets, daily range): BP systolic 95–125; BP diastolic 61–83; PULSE 112–126; RESP 15–23; TEMP 34.4–38.6; O2SAT 90–96; BMI 29.3
[2022-10-25 00:28] LABS: Reflex Lactate? 2 Y
[2022-10-25] MEDS: propofoL 1,000 MG/100 ML VIAL 15.28 MG IVCONT ×5 (00:52→22:49)
[2022-10-25 01:05] LABS: VBG Base Excess -7.2 mmol/L; VBG HCO3 19 mmol/L (22-26); VBG pCO2 40 mmHg; VBG pH 7.27 (7.32-7.43); VBG pO2 71 mmHg
[2022-10-25 01:22] LABS: Venous Blood Gas Refer to POC result
[2022-10-25] MEDS: Norepinephrine Bitartrate/D5W 8 MG/250 ML PLAST..BAG 82.78 MG IV (02:28)
[2022-10-25] MEDS: Vasopressin 20 UNIT/100 ML INFUS..BTL 12 UNIT IV ×3 (03:40→19:12)
[2022-10-25 04:30] LABS: VBG Base Excess -5.6 mmol/L; VBG HCO3 20 mmol/L (22-26); VBG pCO2 40 mmHg; VBG pO2 54 mmHg
[2022-10-25 05:00] LABS: Hematocrit 39.3 % (42.0-52.0); Hemoglobin 10.6 g/dl (14.0-18.0); Mean Corpuscular Hemoglobin 22.4 pg (27.0-33.0); Mean Corpuscular Volume 83.1 fL (80.0-98.0); PLT CLUMP 1; Red Blood Count 4.73 X10*6/uL (4.60-5.80); Red Cell Distribution Width 29.6 % (11.0-16.0)
[2022-10-25 05:04] LABS: NRBC Pct Auto 4.4 /100WBC (0.0-0.2)
[2022-10-25 05:06] LABS: White Blood Count 42.9 X10*3/uL (4.8-10.8)
[2022-10-25 05:16] LABS: Albumin Level 3.4 g/dL (3.5-5.0); Anion Gap 19 (12-20); Blood Urea Nitrogen 36 mg/dL (9-16); Calcium 9.2 mg/dL (8.4-10.2); Carbon Dioxide 18 mmol/L (22-29); Chloride 100 mmol/L (96-108); Creatinine Clr Calc Pharmacy 37.2; Estimated Glomerular Filt Rate 37; Glucose Random 207 mg/dL (60-115); Magnesium 1.8 mg/dL (1.6-2.6); Potassium 3.9 mmol/L (3.3-5.1); Sodium 133 mmol/L (135-145)
[2022-10-25] MEDS: Norepinephrine Bitartrate/D5W 8 MG/250 ML PLAST..BAG 73.23 MG IV (05:28)
[2022-10-25 05:29] LABS: Venous Blood Gas Refer to POC result
[2022-10-25 05:44] LABS: Acanthocytes 2+ (3-5) /OIF; Band Neutrophils Percent 19 % (3-5); Large Platelet PRESENT; Macrocytosis 2+ (15-30) /OIF; Metamyelocytes Absolute 0.4 X10*3/uL; Metamyelocytes Percent 1 %; Monocytes Absolute Manual 1.3 X10*3/uL (0.1-1.2); Monocytes Percent Manual 3 % (2-11); Neutrophils Absolute Manual 41.2 X10*3/uL (2.0-8.3); Neutrophils Percent Manual 77 % (45-73); Nucleated Red Blood Cells 10 /100WBC (0-0); Platelet Estimate NORMAL (NORMAL); Platelet Morphology Comment NORMAL; RBC Morphology NOTED
[2022-10-25 05:45] LABS: Auer Rods PRESENT; Dohle Bodies PRESENT; Hypochromasia 1+ (5-14) /OIF; Ovalocytes 1+ (5-14) /OIF; Platelet Count 235 X10*3/uL (160-400)
[2022-10-25] MEDS: Doxycycline Hyclate 100 MG in 0.9 % Sodium Chloride 250 ML 166.67 MG IV ×2 (05:47→17:08)
[2022-10-25] MEDS: metroNIDAZOLE/NS 500 MG/100 ML PIGGYBACK 100 MG IV (05:48)
[2022-10-25] MEDS: rifAXIMin 550 MG TABLET PO ×3 (05:51→20:39)
[2022-10-25 06:52] LABS: Reflex Lactate? Lactic Acid Added
--- NOTE | 2022-10-25 07:00 | CA_ITS ---
Transthoracic Echocardiogram Patient (Last, First, Middle): Jose Solis A Gender: Male Date of : 1950 Age: 72 Procedure Date: 10/25/2022 Procedure Type: Transthoracic Echocardiogram Location: ICU Height: 170.18 cm Weight: 84.82 kg BSA: 1.97 m2 Heart Rate: bpm BP: 121 / 80 mmHg Mental Health Consultant: TO Referring MD: Ted Greer MD Satellite Installation Technician: Jose Boateng MD Symptoms: cor pulmonal Study Quality: Fair ECG Rhythm: Sinus Conclusions: - 1. Normal LV systolic function with mild LVH with impaired relaxation filling pattern 2. At least moderately dilated right ventricle with normal measured RV systolic function by TAPSE 3. Mild mitral regurgitation 4. Mildly to moderately elevated right ventricular systolic pressure with significantly elevated right atrial pressures 5. No pericardial effusion Findings Left Ventricle Normal left ventricular size and systolic function. There is mildly increased left ventricular wall thickness. The visually estimated ejection fraction is between 55-60%. There is a flattened septum in systole consistent with right ventricular pressure overload. Spectral Doppler is indicative of an impaired relaxation filling pattern. E/E prime ratio is between 8 and 15 consistent with indeterminate filling pressures. Right Ventricle Moderately increased right ventricular cavity size. There is normal right ventricular systolic function. Atria The left atrium is normal in size. There is no evidence of interatrial shunt. The right atrium is mildly dilated. Aortic Valve There is mild calcification of the aortic valve. There is no aortic valve stenosis. There is no aortic valve regurgitation. Mitral Valve Normal mitral valve structure and function. There is mild mitral valve regurgitation. There is no mitral valve stenosis. Pulmonic Valve The pulmonic valve is likely normal. There is mild pulmonic valve regurgitation. Tricuspid Valve Normal tricuspid valve structure. There is mild tricuspid valve regurgitation. Significantly elevated right atrial pressure. Mild pulmonary hypertension is present. Great Vessels All visible segments of the aorta are normal in size. The pulmonary artery was not well visualized. Venous The inferior vena cava is severely dilated and collapses less than 50% with inspiration. Pericardium/Pleural There is no evidence of pericardial effusion. Prior Study Comparison No significant change compared to prior study dated: 04/30/2022. Measurements 2D Linear Measurements IVSd: 1.10 0.6-0.9/0.6-1.0 cm LVIDd: 4.49 3.9-5.3/4.2-5.9 cm LVIDd Index: 2.28 2.4-3.2/2.2-3.1 cm/m2 LVIDs: 3.11 2.0-3.6 cm LVPWd: 1.17 0.7-1.1 cm LA Diam: 3.00 2.7-3.8/3.0-4.0 cm LAIDs Index: 1.52 1.5-2.3 cm/m2 LV Mass: 227.13 67-162/88-224 g LV Mass Index: 115.30 43-95/49-115 g/m2 LVOT Diam: 2.20 3.0+(-)1.3 cm Mitral Valve MV Pk E: 0.60 MV Decel Time: 164.00 E'Lateral: 7.18 E'Medial: 3.81 E/E' Med: 15.60 E/E' Lat: 8.30 PHT: 48.00 MVA PHT: 4.58 Decel [place]: 3.62 Aortic Valve AoV Pk Juan M: 1.21 AoV Mn Juan M: 0.86 AoV VTI: 0.15 AoV Pk Grad: 6.00 Aov Mn Grad: 3.00 HAYLEY Cont.VTI: 3.21 LVOT LVOT Pk Juan M: 0.87 LVOT Mn Juan M: 0.56 LVOT VTI: 0.13 LVOT Pk Grad: 3.00 LVOT Mn Grad: 2.00 LVOT Diam: 2.20 LVOT Area: 3.80 Diastolic Function MV Pk E: 0.60 E'Medial: 3.81 E/E' Med: 15.60 E' Laterial: 7.18 E/E' Lat: 8.30 Right Ventricle TAPSE (mm): 18.20 TVS' Juan M: 10.40 Tricuspid Valve TR Pk Juan M: 2.76 TR Pk Grad: 30.00 RA Press: 15.00 RVSP: 45.00 Great Vessels Aorta Sinus of Valsalva: 3.68 2.0-3.5 cm Ao Asc: 3.30 2.1-3.4 cm Updated in Other Vendor System with Status of Final Jose Boateng MD electronically signed on 10/25/2022 4:57:53 PM with status of Final
[2022-10-25 07:03] LABS: Fibrinogen 669 MG/DL (259-690); INTERNATIONAL NORM RATIO 2.8 (0.9-1.1); Prothrombin Time 33.6 SEC (10.0-13.1)
[2022-10-25 07:05] LABS: Partial Thromboplastin Time 46.7 SEC (26.0-36.4)
[2022-10-25] MEDS: Chlorhexidine Gluc Oral Rinse 15 ML MOUTHWASH BUCCAL ×3 (07:48→20:32)
[2022-10-25] MEDS: methylPREDNISolone Sod Succ 40 MG/ML VIAL IVPUSH ×2 (07:48→19:12)
[2022-10-25] MEDS: Sucralfate Oral Suspension 1 GM/10 ML ORAL.SUSP PO ×4 (07:48→20:32)
[2022-10-25] MEDS: Albuterol/Iprat 2.5/0.5MG 3 ML AMPUL.NEB INHALE ×4 (08:16→20:41)
[2022-10-25 08:29] LABS: COVID-19 Test Invalid (Negative); IDNOW Serial# BCCEAD1C
[2022-10-25 08:33] LABS: ~Lactic Acid-LAB USE ONLY 2.7 mmol/L (0.5-2.0)
[2022-10-25] MEDS: Norepinephrine Bitartrate/D5W 8 MG/250 ML PLAST..BAG 70.04 MG IV ×3 (09:06→16:10)
[2022-10-25 10:08] LABS: Reflex Lactate? 2 Y
[2022-10-25 10:14] LABS: Vancomycin Trough 12.7 mcg/mL (10.0-20.0)
[2022-10-25 10:15] LABS: Lactate Dehydrogenase 271 U/L (118-273)
[2022-10-25 11:19] LABS: ~Lactic Acid-LAB USE ONLY 2.5 mmol/L (0.5-2.0)
[2022-10-25 11:28] LABS: Creatinine Urine 85.81 mg/dL; Sodium Urine Random < 20.0 mmol/L; Total Protein Urine Random 101 mg/dL (<12)
--- NOTE | 2022-10-25 12:24 | PHA.PROG ---
Admission Date/Time: October 18, 2022 21:38 Indication: OTHER Weight in k.9 kg Adjusted body weight in Kg: [place] body weight in Kg: Obesity Dosing Indication % IBW: Serum Creatinine - Last 168 Hours 10/18/22 10/19/22 10/20/22 19:05 05:52 06:04 Creatinine 1.56 H 1.34 0.81 10/21/22 10/22/22 10/24/22 06:05 08:08 07:30 Creatinine 0.83 0.82 0.88 10/24/22 10/25/22 20:15 04:21 Creatinine 1.94 H 1.81 H Estimated CrCl and GFR - Last 168 Hours 10/18/22 10/19/22 10/20/22 19:05 05:52 06:04 Estim Creat Clear Calc 42.5 50.3 83.3 Estimated GFR 44 52 > 60 10/21/22 10/22/22 10/24/22 06:05 08:08 07:30 Estim Creat Clear Calc 81.3 82.2 76.6 Estimated GFR > 60 > 60 > 60 10/24/22 10/25/22 20:15 04:21 Estim Creat Clear Calc 34.7 37.2 Estimated GFR 34 37 Vancomycin Loading Dose: 1250 X 1 Current Vancomycin Dosing Regimen: 1000 Q24H Vancomycin Monitoring using AUC goal of 400 - 600 range with trough as surrogate marker: AUC 533, TROUGH 16.7 Date and Time for next Vancomycin Level to be drawn: RANDOM 10/26 @1200 Vancomycin Trough 12.7 mcg/mL (10.0-20.0) 10/25/22 09:45 Pharmacist Comments on Vancomycin Plan: Vancomycin dosing will take advantage of [employer] as a clinical decision support tool that uses Bayesian modeling to calculate individual patient's pharmacokinetic parameters and forecast the patient's drug concentration time course with the target goal AUC 24 range of 400 - 600 mg/L/hr.
--- NOTE | 2022-10-25 13:07 | MHC.CLN ---
PT IS INTUBATED AND SEDATED SPOKE WITH PT'S FAMILY MEMBER REPORTED POOR PO X 7 DAYS TOY MECHANIC FAMILY MEMBER REPORTED PT WITH INTENTIONAL WT LOSS RECOMMENDED BY HIS PCP PT TRIGGERS FOR 18% SIGNIFICANT WT LOSS X 6 MONTHS-WT LOSS DESIRED AND INTENTIONAL PT REMAINS OBESE FOR HT PT RECEIVING TF: PROMOTE AT MAX GOAL RATE 50ML/HR AND 120ML FWF Q 4 HRS TO PROVIDE 1200KCALS (1603KCALS WITH SEDATION), 75G PROTIEN (1.0G/KG), 1727ML TOTAL WATER FROM FORMULA AND FLUSHES MONITOR TOLERANCE, RESIDUALS AND LYTES SEE ALSO FULL CLINICAL NUTRITION ASSESSMENT
[2022-10-25] MEDS: vancomycin HCL 1,000 MG in 0.9 % Sodium Chloride 250 ML 270 MG IV (13:59)
--- NOTE | 2022-10-25 14:05 | MHC.CM.PN ---
Pt transferred to ICU for ventilatory support: will follow for finalization of d/c planning needs.
[2022-10-25 14:28] LABS: Adenovirus PCR Not Detected (Not Detect.); Bordetella parapertussis PCR Not Detected (Not Detect.); Bordetella pertussis PCR Not Detected (Not Detect.); Chlamydia pneumoniae PCR Not Detected (Not Detect.); Coronavirus 229E PCR Not Detected (Not Detect.); Coronavirus HKU1 PCR Not Detected (Not Detect.); Coronavirus NL63 PCR Not Detected (Not Detect.); Coronavirus OC43 PCR Not Detected (Not Detect.); Influenza A PCR Not Detected (Not Detect.); Influenza B PCR Not Detected (Not Detect.); SARS-CoV-2 PCR Not Detected (Not Detect.)
[2022-10-25 14:29] LABS: Human metapneumovirus PCR Not Detected (Not Detect.); Mycoplasma pneumoniae PCR Not Detected (Not Detect.); Parainfluenza 1 PCR Not Detected (Not Detect.); Parainfluenza 2 PCR Not Detected (Not Detect.); Parainfluenza 3 PCR Not Detected (Not Detect.); Parainfluenza 4 PCR Not Detected (Not Detect.); RSV PCR Not Detected (Not Detect.); Rhino/Enterovirus PCR Not Detected (Not Detect.)
--- NOTE | 2022-10-25 15:58 | PM.CCPN ---
Subjective Subjective Date of Service: 10/25/22 Interval History: 72-year-old male with longstanding COPD and secondary cor pulmonale and I was called for and an abrupt deterioration with marked respiratory distress extremely hyper P echo and and tachypneic on BiPAP pulling tidal volumes of over 1200 cc and and minute ventilations exceeding 28-30 liters/minute profoundly hypoxic ultimately requiring intubation behaving certainly an aseptic fashion but we had no origin to the infection that we could define abdomen or is having a benign appearance on exam and is bedside echo did not show of course any primary valve disease but he had predominant right heart failure with a Charlene profound pushing of the interventricular septum towards the left ventricle mild it a diminished systolic function of the left ventricle partly because of the septal paradox but clearly evidence of diminished diastolic reserve of the left ventricle no primary pericardial disease or valve disease and there was no distinct infiltrate but he just developed relatively abruptly a mild to moderate bilateral pleural effusion more so on the right side but not enough of a shelf in the supine position to to be able to obtain fluid sample He developed acute kidney insufficiency which is now resolving he has got a history of paroxysmal atrial flutter and fibrillation for which he was on apixaban held because of a bleeding oropharynx CATALINA lesion which has been stable with a stable hemoglobin but off apixaban for several days and he is in sinus tachycardia clearly and high-output failure with mixed venous oxygen saturations in the 80s marginal urine urine output but improving GFR over time and he progressively resolving positive anion gap metabolic acidosis we finally normalized his lactate and he is on a selection of broad antibiotics including even coverage for potential Lyme but I did review his CBC smear with the pathologist and clearly marked left shift it is loaded with polys but there were no intracellular organisms nothing to imply either erlichia or Babesia Critical Care Time (minutes): 60 Physical Exam Vital Signs: Vital Signs: Last Vital Signs Temp 100.2 F 10/25/22 14:00 Pulse 118 H 10/25/22 15:00 Resp 21 H 10/25/22 15:00 BP 123/83 10/25/22 15:00 Pulse Ox 93 10/25/22 15:00 O2 Del Method Mechanical Ventil ation 10/25/22 15:00 O2 Flow Rate 60 10/24/22 07:42 FiO2 100 10/25/22 15:00 Oxygen Flow Rate 6 10/18/22 18:31 BMI result Body Mass Index 29.3 He remains in sinus tachycardia and on combined vasopressin and Levophed maintaining systolic pressures of 110 and mean arterial pressures of 75-80 with improving urine output in other words now on non oliguric with resolving metabolic acidosis Abdomen remains soft with no organomegaly nontender no bowel movement Lungs with diminished bilateral breath sounds but no adventitious sounds Bedside echo defining predominant right heart failure with bulging interventricular septum towards the left ventricle which has mild reduction of systolic and diastolic reserve Objective Data Labs 10/25/22 04:21 10/25/22 04:21 Labs: Laboratory Results - last 24 hr 10/24/22 10/24/22 10/24/22 20:15 20:15 20:21 WBC RBC Hgb Hct MCV MCH MCHC RDW Plt Count MPV Immature Gran % (Auto) Neut % (Auto) Lymph % (Auto) [place] % (Auto) Eos % (Auto) Baso % (Auto) Lymph # (Auto) [place] # (Auto) Eos # (Auto) Baso # (Auto) Abs Immat Gran (auto) Absolute Neuts (auto) Absolute Nucleated RBC Nucleated RBC % (auto) Neutrophils % (Manual) Band Neutrophils % Monocytes % (Manual) Metamyelocytes % Abs Neuts (Manual) Monocytes # (Manual) Metamyelocytes # Nucleated RBCs Dohle Bodies Berta Rods Platelet Estimate Large Platelets Plt Morphology Comment RBC Morphology Hypochromasia Macrocytosis Ovalocytes Acanthocytes (Spur) PT INR APTT Fibrinogen VBG pH 7.23 L VBG pCO2 54 VBG pO2 116 VBG HCO3 23 VBG O2 Saturation 100.0 VBG Base Excess -4.8 Sodium 136 Potassium 3.5 Chloride 102 Carbon Dioxide 20 L Anion Gap 18 BUN 34 H Creatinine 1.94 H Estim Creat Clear Calc 34.7 Estimated GFR 34 Random Glucose 189 H Lactic Acid 3.2 H* Lactic Acid F/U @ 2Hr Lactic Acid F/U @ 4Hr Calcium 9.1 D Phosphorus Magnesium Lactate Dehydrogenase Albumin Procalcitonin 26.44 Urine Color Urine Appearance Urine pH Ur Specific [place] Urine Protein Urine Glucose (UA) Urine Ketones Urine Blood Urine Nitrite Ur Leukocyte Esterase Urine RBC Urine WBC Ur Squamous Epith Cells Urine Bacteria Hyaline Casts U Random Total Protein Ur Random Sodium Urine Creatinine Vancomycin Trough Respiratory Panel [place] Adenovirus (Rapid PCR) B.pert (TEM-PCR) B.parapertussis DNA PCR C. pneumoniae DNA (PCR) Coronavirus OC43 (PCR) Coronavirus HKU1 (PCR) Coronavirus 229E (PCR) COVID-19 (LUIS) COVID-19 [facility] Com Coronavirus NL63 (PCR) Human Metapneumovir PCR Influenza A (RT-PCR) Influenza B (RT-PCR) M. pneumoniae (PCR) Parainfluenza 1 (PCR) Parainfluenza 2 (PCR) Parainfluenza 3 (PCR) Parainfluenza 4 (PCR) RSV (PCR) Entero/Rhino (PCR) SARS-CoV-2 RNA (RT-PCR) 10/24/22 10/24/22 10/25/22 22:26 22:27 00:51 WBC RBC Hgb Hct MCV MCH MCHC RDW Plt Count MPV Immature Gran % (Auto) Neut % (Auto) Lymph % (Auto) [place] % (Auto) Eos % (Auto) Baso % (Auto) Lymph # (Auto) [place] # (Auto) Eos # (Auto) Baso # (Auto) Abs Immat Gran (auto) Absolute Neuts (auto) Absolute Nucleated RBC Nucleated RBC % (auto) Neutrophils % (Manual) Band Neutrophils % Monocytes % (Manual) Metamyelocytes % Abs Neuts (Manual) Monocytes # (Manual) Metamyelocytes # Nucleated RBCs Dohle Bodies Berta Rods Platelet Estimate Large Platelets Plt Morphology Comment RBC Morphology Hypochromasia Macrocytosis Ovalocytes Acanthocytes (Spur) PT INR APTT Fibrinogen VBG pH VBG pCO2 VBG pO2 VBG HCO3 VBG O2 Saturation VBG Base Excess Sodium Potassium Chloride Carbon Dioxide Anion Gap BUN Creatinine Estim Creat Clear Calc Estimated GFR Random Glucose Lactic Acid Lactic Acid F/U @ 2Hr 2.9 H* Lactic Acid F/U @ 4Hr 3.0 H* Calcium Phosphorus Magnesium Lactate Dehydrogenase Albumin Procalcitonin Urine Color Dark Yellow Urine Appearance Clear Urine pH 5.5 Ur Specific [place] 1.015 Urine Protein 30 (1+) H Urine Glucose (UA) Negative Urine Ketones Negative Urine Blood Negative Urine Nitrite Negative Ur Leukocyte Esterase Trace H Urine RBC >20 H Urine WBC 0-5 Ur Squamous Epith Cells 0-2 Urine Bacteria 4+ Hyaline Casts 0-2 U Random Total Protein Ur Random Sodium Urine Creatinine Vancomycin Trough Respiratory Panel [place] Adenovirus (Rapid PCR) B.pert (TEM-PCR) B.parapertussis DNA PCR C. pneumoniae DNA (PCR) Coronavirus OC43 (PCR) Coronavirus HKU1 (PCR) Coronavirus 229E (PCR) COVID-19 (LUIS) COVID-19 Clin Com Coronavirus NL63 (PCR) Human Metapneumovir PCR Influenza A (RT-PCR) Influenza B (RT-PCR) M. pneumoniae (PCR) Parainfluenza 1 (PCR) Parainfluenza 2 (PCR) Parainfluenza 3 (PCR) Parainfluenza 4 (PCR) RSV (PCR) Entero/Rhino (PCR) SARS-CoV-2 RNA (RT-PCR) 10/25/22 10/25/22 10/25/22 00:55 04:21 04:21 WBC 42.9 H* RBC 4.73 Hgb 10.6 L Hct 39.3 L D MCV 83.1 MCH 22.4 L MCHC 27.0 L RDW 29.6 H Plt Count 235 MPV TNP Immature Gran % (Auto) Cancelled Neut % (Auto) Cancelled Lymph % (Auto) Cancelled [place] % (Auto) Cancelled Eos % (Auto) Cancelled Baso % (Auto) Cancelled Lymph # (Auto) Cancelled [place] # (Auto) Cancelled Eos # (Auto) Cancelled Baso # (Auto) Cancelled Abs Immat Gran (auto) Cancelled Absolute Neuts (auto) Cancelled Absolute Nucleated RBC 1.880 H Nucleated RBC % (auto) 4.4 H Neutrophils % (Manual) 77 H Band Neutrophils % 19 H Monocytes % (Manual) 3 Metamyelocytes % 1 Abs Neuts (Manual) 41.2 H Monocytes # (Manual) 1.3 H Metamyelocytes # 0.4 Nucleated RBCs 10 H Dohle Bodies PRESENT Berta Rods PRESENT Platelet Estimate NORMAL Large Platelets PRESENT Plt Morphology Comment NORMAL RBC Morphology NOTED Hypochromasia 1+ (5-14) Macrocytosis 2+ (15-30) Ovalocytes 1+ (5-14) Acanthocytes (Spur) 2+ (3-5) PT INR APTT Fibrinogen VBG pH 7.27 L VBG pCO2 40 VBG pO2 71 VBG HCO3 19 L VBG O2 Saturation 93.0 VBG Base Excess -7.2 Sodium 133 L Potassium 3.9 Chloride 100 Carbon Dioxide 18 L Anion Gap 19 BUN 36 H Creatinine 1.81 H Estim Creat Clear Calc 37.2 Estimated GFR 37 Random Glucose 207 H Lactic Acid Lactic Acid F/U @ 2Hr Lactic Acid F/U @ 4Hr Calcium 9.2 Phosphorus 5.0 H Magnesium 1.8 Lactate Dehydrogenase Albumin 3.4 L Procalcitonin Urine Color Urine Appearance Urine pH Ur Specific [place] Urine Protein Urine Glucose (UA) Urine Ketones Urine Blood Urine Nitrite Ur Leukocyte Esterase Urine RBC Urine WBC Ur Squamous Epith Cells Urine Bacteria Hyaline Casts U Random Total Protein Ur Random Sodium Urine Creatinine Vancomycin Trough Respiratory Panel [place] Adenovirus (Rapid PCR) B.pert (TEM-PCR) B.parapertussis DNA PCR C. pneumoniae DNA (PCR) Coronavirus OC43 (PCR) Coronavirus HKU1 (PCR) Coronavirus 229E (PCR) COVID-19 (LUIS) COVID-19 Clin Com Coronavirus NL63 (PCR) Human Metapneumovir PCR Influenza A (RT-PCR) Influenza B (RT-PCR) M. pneumoniae (PCR) Parainfluenza 1 (PCR) Parainfluenza 2 (PCR) Parainfluenza 3 (PCR) Parainfluenza 4 (PCR) RSV (PCR) Entero/Rhino (PCR) SARS-CoV-2 RNA (RT-PCR) 10/25/22 10/25/22 10/25/22 04:21 04:26 06:40 WBC RBC Hgb Hct MCV MCH MCHC RDW Plt Count MPV Immature Gran % (Auto) Neut % (Auto) Lymph % (Auto) [place] % (Auto) Eos % (Auto) Baso % (Auto) Lymph # (Auto) [place] # (Auto) Eos # (Auto) Baso # (Auto) Abs Immat Gran (auto) Absolute Neuts (auto) Absolute Nucleated RBC Nucleated RBC % (auto) Neutrophils % (Manual) Band Neutrophils % Monocytes % (Manual) Metamyelocytes % Abs Neuts (Manual) Monocytes # (Manual) Metamyelocytes # Nucleated RBCs Dohle Bodies Berta Rods Platelet Estimate Large Platelets Plt Morphology Comment RBC Morphology Hypochromasia Macrocytosis Ovalocytes Acanthocytes (Spur) PT 33.6 H INR 2.8 H APTT 46.7 H D Fibrinogen 669 VBG pH 7.30 L VBG pCO2 40 VBG pO2 54 VBG HCO3 20 L VBG O2 Saturation 84.0 VBG Base Excess -5.6 Sodium Potassium Chloride Carbon Dioxide Anion Gap BUN Creatinine Estim Creat Clear Calc Estimated GFR Random Glucose Lactic Acid 3.0 H* Lactic Acid F/U @ 2Hr Lactic Acid F/U @ 4Hr Calcium Phosphorus Magnesium Lactate Dehydrogenase Albumin Procalcitonin Urine Color Urine Appearance Urine pH Ur Specific [place] Urine Protein Urine Glucose (UA) Urine Ketones Urine Blood Urine Nitrite Ur Leukocyte Esterase Urine RBC Urine WBC Ur Squamous Epith Cells Urine Bacteria Hyaline Casts U Random Total Protein Ur Random Sodium Urine Creatinine Vancomycin Trough Respiratory Panel [place] Adenovirus (Rapid PCR) B.pert (TEM-PCR) B.parapertussis DNA PCR C. pneumoniae DNA (PCR) Coronavirus OC43 (PCR) Coronavirus HKU1 (PCR) Coronavirus 229E (PCR) COVID-19 (LUIS) COVID-19 Clin Com Coronavirus NL63 (PCR) Human Metapneumovir PCR Influenza A (RT-PCR) Influenza B (RT-PCR) M. pneumoniae (PCR) Parainfluenza 1 (PCR) Parainfluenza 2 (PCR) Parainfluenza 3 (PCR) Parainfluenza 4 (PCR) RSV (PCR) Entero/Rhino (PCR) SARS-CoV-2 RNA (RT-PCR) 10/25/22 10/25/22 10/25/22 07:32 07:39 08:03 WBC RBC Hgb Hct MCV MCH MCHC RDW Plt Count MPV Immature Gran % (Auto) Neut % (Auto) Lymph % (Auto) [place] % (Auto) Eos % (Auto) Baso % (Auto) Lymph # (Auto) [place] # (Auto) Eos # (Auto) Baso # (Auto) Abs Immat Gran (auto) Absolute Neuts (auto) Absolute Nucleated RBC Nucleated RBC % (auto) Neutrophils % (Manual) Band Neutrophils % Monocytes % (Manual) Metamyelocytes % Abs Neuts (Manual) Monocytes # (Manual) Metamyelocytes # Nucleated RBCs Dohle Bodies Berta Rods Platelet Estimate Large Platelets Plt Morphology Comment RBC Morphology Hypochromasia Macrocytosis Ovalocytes Acanthocytes (Spur) PT INR APTT Fibrinogen VBG pH VBG pCO2 VBG pO2 VBG HCO3 VBG O2 Saturation VBG Base Excess Sodium Potassium Chloride Carbon Dioxide Anion Gap BUN Creatinine Estim Creat Clear Calc Estimated GFR Random Glucose Lactic Acid Lactic Acid F/U @ 2Hr 2.7 H* Lactic Acid F/U @ 4Hr Calcium Phosphorus Magnesium Lactate Dehydrogenase Albumin Procalcitonin Urine Color Urine Appearance Urine pH Ur Specific [place] Urine Protein Urine Glucose (UA) Urine Ketones Urine Blood Urine Nitrite Ur Leukocyte Esterase Urine RBC Urine WBC Ur Squamous Epith Cells Urine Bacteria Hyaline Casts U Random Total Protein Ur Random Sodium Urine Creatinine Vancomycin Trough Respiratory Panel [place] See Note Adenovirus (Rapid PCR) Not Detected B.pert (TEM-PCR) Not Detected B.parapertussis DNA PCR Not Detected C. pneumoniae DNA (PCR) Not Detected Coronavirus OC43 (PCR) Not Detected Coronavirus HKU1 (PCR) Not Detected Coronavirus 229E (PCR) Not Detected COVID-19 (LUIS) Invalid COVID-19 Clin Com See Note Coronavirus NL63 (PCR) Not Detected Human Metapneumovir PCR Not Detected Influenza A (RT-PCR) Not Detected Influenza B (RT-PCR) Not Detected M. pneumoniae (PCR) Not Detected Parainfluenza 1 (PCR) Not Detected Parainfluenza 2 (PCR) Not Detected Parainfluenza 3 (PCR) Not Detected Parainfluenza 4 (PCR) Not Detected RSV (PCR) Not Detected Entero/Rhino (PCR) Not Detected SARS-CoV-2 RNA (RT-PCR) Not Detected 10/25/22 10/25/22 10/25/22 09:45 09:45 10:12 WBC RBC Hgb Hct MCV MCH MCHC RDW Plt Count MPV Immature Gran % (Auto) Neut % (Auto) Lymph % (Auto) [place] % (Auto) Eos % (Auto) Baso % (Auto) Lymph # (Auto) [place] # (Auto) Eos # (Auto) Baso # (Auto) Abs Immat Gran (auto) Absolute Neuts (auto) Absolute Nucleated RBC Nucleated RBC % (auto) Neutrophils % (Manual) Band Neutrophils % Monocytes % (Manual) Metamyelocytes % Abs Neuts (Manual) Monocytes # (Manual) Metamyelocytes # Nucleated RBCs Dohle Bodies Berta Rods Platelet Estimate Large Platelets Plt Morphology Comment RBC Morphology Hypochromasia Macrocytosis Ovalocytes Acanthocytes (Spur) PT INR APTT Fibrinogen VBG pH VBG pCO2 VBG pO2 VBG HCO3 VBG O2 Saturation VBG Base Excess Sodium Potassium Chloride Carbon Dioxide Anion Gap BUN Creatinine Estim Creat Clear Calc Estimated GFR Random Glucose Lactic Acid Lactic Acid F/U @ 2Hr Lactic Acid F/U @ 4Hr Calcium Phosphorus Magnesium Lactate Dehydrogenase 271 Albumin Procalcitonin Urine Color Urine Appearance Urine pH Ur Specific [place] Urine Protein Urine Glucose (UA) Urine Ketones Urine Blood Urine Nitrite Ur Leukocyte Esterase Urine RBC Urine WBC Ur Squamous Epith Cells Urine Bacteria Hyaline Casts U Random Total Protein 101 H Ur Random Sodium < 20.0 Urine Creatinine 85.81 Vancomycin Trough 12.7 Respiratory Panel [place] Adenovirus (Rapid PCR) B.pert (TEM-PCR) B.parapertussis DNA PCR C. pneumoniae DNA (PCR) Coronavirus OC43 (PCR) Coronavirus HKU1 (PCR) Coronavirus 229E (PCR) COVID-19 (LUIS) COVID-19 Clin Com Coronavirus NL63 (PCR) Human Metapneumovir PCR Influenza A (RT-PCR) Influenza B (RT-PCR) M. pneumoniae (PCR) Parainfluenza 1 (PCR) Parainfluenza 2 (PCR) Parainfluenza 3 (PCR) Parainfluenza 4 (PCR) RSV (PCR) Entero/Rhino (PCR) SARS-CoV-2 RNA (RT-PCR) 10/25/22 10:18 WBC RBC Hgb Hct MCV MCH MCHC RDW Plt Count MPV Immature Gran % (Auto) Neut % (Auto) Lymph % (Auto) [place] % (Auto) Eos % (Auto) Baso % (Auto) Lymph # (Auto) [place] # (Auto) Eos # (Auto) Baso # (Auto) Abs Immat Gran (auto) Absolute Neuts (auto) Absolute Nucleated RBC Nucleated RBC % (auto) Neutrophils % (Manual) Band Neutrophils % Monocytes % (Manual) Metamyelocytes % Abs Neuts (Manual) Monocytes # (Manual) Metamyelocytes # Nucleated RBCs Dohle Bodies Berta Rods Platelet Estimate Large Platelets Plt Morphology Comment RBC Morphology Hypochromasia Macrocytosis Ovalocytes Acanthocytes (Spur) PT INR APTT Fibrinogen VBG pH VBG pCO2 VBG pO2 VBG HCO3 VBG O2 Saturation VBG Base Excess Sodium Potassium Chloride Carbon Dioxide Anion Gap BUN Creatinine Estim Creat Clear Calc Estimated GFR Random Glucose Lactic Acid Lactic Acid F/U @ 2Hr Lactic Acid F/U @ 4Hr 2.5 H* Calcium Phosphorus Magnesium Lactate Dehydrogenase Albumin Procalcitonin Urine Color Urine Appearance Urine pH Ur Specific [place] Urine Protein Urine Glucose (UA) Urine Ketones Urine Blood Urine Nitrite Ur Leukocyte Esterase Urine RBC Urine WBC Ur Squamous Epith Cells Urine Bacteria Hyaline Casts U Random Total Protein Ur Random Sodium Urine Creatinine Vancomycin Trough Respiratory Panel [place] Adenovirus (Rapid PCR) B.pert (TEM-PCR) B.parapertussis DNA PCR C. pneumoniae DNA (PCR) Coronavirus OC43 (PCR) Coronavirus HKU1 (PCR) Coronavirus 229E (PCR) COVID-19 (LUIS) COVID-19 Clin Com Coronavirus NL63 (PCR) Human Metapneumovir PCR Influenza A (RT-PCR) Influenza B (RT-PCR) M. pneumoniae (PCR) Parainfluenza 1 (PCR) Parainfluenza 2 (PCR) Parainfluenza 3 (PCR) Parainfluenza 4 (PCR) RSV (PCR) Entero/Rhino (PCR) SARS-CoV-2 RNA (RT-PCR) Microbiology Microbiology Results: Microbiology 10/24/22 06:11 Blood - Venous Blood Culture - Preliminary No growth after 24 hours. 10/24/22 06:11 Blood - Venous Blood Culture - Preliminary No growth after 24 hours. 10/18/22 19:16 Blood - Venous Blood Culture - Final No growth after 5 days. 10/18/22 19:05 Blood - Venous Blood Culture - Final No growth after 5 days. Progress Note: A&P Assessment and plan (1) Heart failure with preserved ejection fraction: Status: Acute (2) Hyponatremia: Status: Acute (3) Pneumonia: Status: Acute (4) Sepsis: Status: Acute (5) Acute and chronic respiratory failure with hypoxia: Status: Acute (6) Pleural effusion: Status: Acute (7) Pulmonary arterial hypertension: Status: Acute (8) Anemia: Status: Acute (9) Chronic right heart failure: Status: Acute (10) Atrial flutter: Status: Acute (11) Preoperative cardiovascular examination: Status: Acute (12) AAA (abdominal aortic aneurysm) without rupture: Status: Acute (13) Acute on chronic anemia: Status: Acute (14) Chronic anticoagulation: Status: Acute (15) CHF exacerbation: Status: Acute (16) SAYDA (acute kidney injury): Status: Acute (17) ABLA (acute blood loss anemia): Status: Acute (18) Acute and chronic respiratory failure: Status: Acute (19) Atrial flutter with rapid ventricular response: Status: Acute (20) CHF exacerbation: Status: Acute (21) Morbid obesity: Status: Acute (22) Congestive heart failure: Status: Acute (23) Hypoxemia: Status: Acute (24) COPD (chronic obstructive pulmonary disease): Status: Acute (25) COPD with exacerbation: Status: Acute Plan Blood pressure and antibiotic support as above as we wait for the results of some of our cultures With the resolution of the lactic acidosis and some of the other secondary combination complications such as the coagulopathy etc. the implication here is is that there probably is an infectious etiology that is coming under control Quality Stroke Does the patient have a stroke diagnosis?: No VTE Prior VTE?: No VTE Risk Level:: Medical - moderate - high VTE Device Contraindication: N/A - Device Ordered VTE Drug Contraindication: Treatment Not Indicated
[2022-10-25 16:14] LABS: VBG Base Excess -3.8 mmol/L; VBG HCO3 21 mmol/L (22-26); VBG pCO2 39 mmHg; VBG pH 7.34 (7.32-7.43); VBG pO2 48 mmHg
[2022-10-25 16:15] LABS: Hemoglobin 9.9 g/dl (14.0-18.0)
[2022-10-25 16:17] LABS: Hematocrit 36.1 % (42.0-52.0); Mean Corpuscular HGB Conc 27.4 g/dl (31.0-36.0); Mean Corpuscular Hemoglobin 22.2 pg (27.0-33.0); Mean Corpuscular Volume 81.1 fL (80.0-98.0); PLT CLUMP 1; Red Blood Count 4.45 X10*6/uL (4.60-5.80); Red Cell Distribution Width 29.2 % (11.0-16.0)
[2022-10-25 16:19] LABS: NRBC Pct Auto 6.3 /100WBC (0.0-0.2); PLT ABN DIST 1; White Blood Count 42.6 X10*3/uL (4.8-10.8)
[2022-10-25 16:28] LABS: Alanine Aminotransferase 27 U/L (0-40); Albumin Level 3.1 g/dL (3.5-5.0); Alkaline Phosphatase 53 U/L (39-117); Anion Gap 14 (12-20); Aspartate Amino Transferase 26 U/L (5-37); Bilirubin Total 2.9 mg/dL (0.0-1.0); Blood Urea Nitrogen 37 mg/dL (9-16); Carbon Dioxide 21 mmol/L (22-29); Chloride 99 mmol/L (96-108); Creatinine Clr Calc Pharmacy 48.5; Estimated Glomerular Filt Rate 50; Glucose Random 239 mg/dL (60-115); Potassium 3.9 mmol/L (3.3-5.1); Sodium 130 mmol/L (135-145); Total Protein 5.4 g/dL (6.5-8.0)
[2022-10-25 16:31] LABS: Lactic Acid 2.4 mmol/L (0.5-2.0)
[2022-10-25 17:52] LABS: Platelet Count 199 X10*3/uL (160-400)
[2022-10-25 17:53] LABS: Acanthocytes 2+ (3-5) /OIF; Band Neutrophils Percent 28 % (3-5); Lymphocytes Absolute Manual 0.4 X10*3/uL (1.2-4.9); Lymphocytes Percent Manual 1 % (20-40); Macrocytosis 1+ (5-14) /OIF; Metamyelocytes Absolute 2.1 X10*3/uL; Metamyelocytes Percent 5 %; Monocytes Absolute Manual 1.3 X10*3/uL (0.1-1.2); Monocytes Percent Manual 3 % (2-11); Neutrophils Absolute Manual 38.8 X10*3/uL (2.0-8.3); Neutrophils Percent Manual 63 % (45-73); Nucleated Red Blood Cells 3 /100WBC (0-0); Ovalocytes 1+ (5-14) /OIF; Platelet Estimate NORMAL (NORMAL); RBC Morphology NOTED
[2022-10-25 17:54] LABS: Large Platelet PRESENT; Platelet Morphology Comment NORMAL
[2022-10-25 18:08] LABS: Reflex Lactate? Lactic Acid Added
[2022-10-25 18:55] LABS: ~Lactic Acid-LAB USE ONLY 2.3 mmol/L (0.5-2.0)
[2022-10-25] MEDS: Norepinephrine Bitartrate/D5W 8 MG/250 ML PLAST..BAG 66.86 MG IV (19:12)
[2022-10-25 20:25] LABS: Reflex Lactate? 2 Y
[2022-10-25] MEDS: Norepinephrine Bitartrate/D5W 8 MG/250 ML PLAST..BAG 60.49 MG IV (22:52)
--- NOTE | 2022-10-25 23:26 | CONS_ITS ---
DATE OF SERVICE: 10/25/2022 REASON FOR CONSULTATION: I was asked to see patient to assist in evaluation and management of patient's acute kidney injury as reflected by creatinine that typically runs in the 0.8-1.0 range and then yesterday went up to 1.94, today at 1.81. He did have very poor urine output overnight, but it has improved a bit with the ICU ongoing care, which has included IV fluids and pressors as needed. HISTORY OF PRESENT ILLNESS: In summary, the patient is a 72-year-old gentleman, who was admitted on the with lightheadedness, dizziness, and some falling episodes. His breathing had gotten progressively worse during the hospital course and he was transferred to the ICU and required intubation. He apparently has known severe lung disease and was intubated for respiratory failure. As part of his workup, he had a CAT scan of the chest and abdomen, which showed evidence of severe emphysema and a 6.1 cm infrarenal abdominal aortic aneurysm. Information obtained from electronic medical record as the patient is on a ventilator. PAST MEDICAL HISTORY: Known for BPH, COPD, hypertension. FAMILY HISTORY: There is mention made of coronary disease. SOCIAL HISTORY: The patient is an ex-smoker. No alcohol use. No illicit drug use. ALLERGIES: NO KNOWN DRUG ALLERGIES. MEDICATIONS: On admission noted in the admitting notes. CURRENT MEDICATIONS: Noted on the JUN. PHYSICAL EXAMINATION: VITAL SIGNS: As mentioned, he is on the ventilator. His urine output has now gradually picked up. It was very poor overnight. He has gotten intermittent fluid boluses to try and increase his urine output. He has significant pulmonary hypertension and right heart failure based on clinical exam and history of emphysema and COPD. LUNGS: Decreased air movement. CARDIAC: Regular rate and rhythm. ABDOMEN: Obese, soft, nontender. EXTREMITIES: 1+ edema. LABORATORY DATA: Hemoglobin 10.6, hematocrit 39.3, white count 42,000, platelet count 235. Most recent blood gas, pH 7.30, PO2 of 40. This was a venous blood gas. Sodium 133, potassium 3.9, chloride 100, bicarb 18, BUN 36, creatinine 1.8. Lactate level of 3. As mentioned, his baseline creatinine is 0.8 yesterday. Last night, it was up to 1.94. IMPRESSION: 1. NONOLIGURIC ACUTE KIDNEY INJURY IN A PATIENT WITH SIGNIFICANT EMPHYSEMA, CHRONIC OBSTRUCTIVE PULMONARY DISEASE, RIGHT HEART FAILURE, NOW WITH RESPIRATORY DECOMPENSATION REQUIRING MECHANICAL VENTILATION. 2. Nonoliguric acute kidney injury. This is most likely due to tubular injury from the stress of his respiratory decompensation along with periods of low blood pressure causing renal hypoperfusion all contributing to tubular injury. Other possibilities such as obstructive uropathy seems unlikely given the Bishop catheter in place. We will need to check a UA to see if he has any evidence of an acute interstitial nephritis or acute glomerulonephritis, but it seems unlikely given his clinical presentation. 3. Respiratory failure. He is on the ventilator. 4. Intravascular volume management. This is very challenging in a patient with significant right heart failure in terms of adequately maintaining effective arterial volume. He may be a candidate for IV albumin along with crystalloid infusions cautiously. He does have a central line and monitoring CVP pressures but to optimize renal perfusion and management, he may be better served by a [place] catheter. I will discuss this with the arc welder. RECOMMENDATION: At this time include. 1. Obtain urinalysis. 2. Obtain spot urine studies for sodium, protein and creatinine. 3. Monitor urine output closely. 4. Utilize a CVP pressure to help with fluid and crystalloid management. 5. We will follow the patient closely with the team. MD SUSY Leon/GEOVANNA / [phone]
[2022-10-26] VITALS (45 sets, daily range): BP systolic 81–138; BP diastolic 50–89; PULSE 80–134; RESP 18–28; TEMP 34.4–38.6; O2SAT 86–94
--- NOTE | 2022-10-26 | ECG_ITS ---
Test Reason : new rythmol Blood Pressure : / mmHG Vent. Rate : 128 BPM Atrial Rate : 128 BPM P-R Int : 176 ms QRS Dur : 128 ms QT Int : 270 ms P-R-T Axes : 262 110 -58 degrees QTc Int : 394 ms Unusual P axis, possible ectopic atrial tachycardia Right bundle branch block Left posterior fascicular block Bifascicular block Possible Inferior infarct (cited on or before 24-OCT-2022) Abnormal ECG When compared with ECG of 24-OCT-2022 14:59, Ectopic atrial rhythm has replaced Sinus rhythm (RBBB and left posterior fascicular block) is now Present Referred By: Ted Greer Electronically Signed By:RENEE BOOTH MD
[2022-10-26] MEDS: Norepinephrine Bitartrate/D5W 8 MG/250 ML PLAST..BAG 60.49 MG IV ×2 (02:44→06:21)
[2022-10-26] MEDS: Vasopressin 20 UNIT/100 ML INFUS..BTL 12 UNIT IV ×3 (02:45→19:06)
[2022-10-26] MEDS: propofoL 1,000 MG/100 ML VIAL 15.28 MG IVCONT ×2 (04:45→09:49)
[2022-10-26 04:48] LABS: VBG Base Excess -2.7 mmol/L; VBG HCO3 22 mmol/L (22-26); VBG pCO2 40 mmHg; VBG pH 7.35 (7.32-7.43); VBG pO2 52 mmHg
[2022-10-26 05:31] LABS: Hematocrit 33.9 % (42.0-52.0); Hemoglobin 9.4 g/dl (14.0-18.0); Mean Corpuscular HGB Conc 27.7 g/dl (31.0-36.0); Mean Corpuscular Hemoglobin 22.5 pg (27.0-33.0); Mean Corpuscular Volume 81.1 fL (80.0-98.0); PLT CLUMP 1; Red Blood Count 4.18 X10*6/uL (4.60-5.80); Red Cell Distribution Width 28.3 % (11.0-16.0)
[2022-10-26] MEDS: Doxycycline Hyclate 100 MG in 0.9 % Sodium Chloride 250 ML 166.67 MG IV ×2 (05:39→17:18)
[2022-10-26 05:40] LABS: NRBC Pct Auto 6.4 /100WBC (0.0-0.2)
[2022-10-26 05:41] LABS: White Blood Count 42.4 X10*3/uL (4.8-10.8)
[2022-10-26 05:46] LABS: INTERNATIONAL NORM RATIO 2.2 (0.9-1.1); Prothrombin Time 26.5 SEC (10.0-13.1)
[2022-10-26 05:49] LABS: Partial Thromboplastin Time 43.9 SEC (26.0-36.4)
[2022-10-26 06:03] LABS: Alanine Aminotransferase 27 U/L (0-40); Albumin Level 3.1 g/dL (3.5-5.0); Alkaline Phosphatase 69 U/L (39-117); Aspartate Amino Transferase 20 U/L (5-37); Bilirubin Total 2.7 mg/dL (0.0-1.0); Blood Urea Nitrogen 38 mg/dL (9-16); Calcium 8.5 mg/dL (8.4-10.2); Chloride 96 mmol/L (96-108); Creatinine Clr Calc Pharmacy 70.2; Estimated Glomerular Filt Rate > 60; Glucose Random 217 mg/dL (60-115); Magnesium 1.8 mg/dL (1.6-2.6); Phosphorus 2.7 mg/dL (2.7-4.5); Potassium 4.2 mmol/L (3.3-5.1); Sodium 126 mmol/L (135-145); Total Protein 5.5 g/dL (6.5-8.0)
[2022-10-26 06:10] LABS: Acanthocytes 1+ (0-2) /OIF; Band Neutrophils Percent 12 % (3-5); Burr Cells 1+ (0-2) /OIF; Large Platelet PRESENT; Macrocytosis 1+ (5-14) /OIF; Monocytes Absolute Manual 1.7 X10*3/uL (0.1-1.2); Monocytes Percent Manual 4 % (2-11); Neutrophils Absolute Manual 40.7 X10*3/uL (2.0-8.3); Neutrophils Percent Manual 84 % (45-73); Nucleated Red Blood Cells 13 /100WBC (0-0); Ovalocytes 1+ (5-14) /OIF; Platelet Estimate NORMAL (NORMAL); Platelet Morphology Comment NORMAL; RBC Morphology NOTED
[2022-10-26 06:11] LABS: Howell Jolly Bodies PRESENT; Smudge Cells PRESENT; Toxic Vacuolation PRESENT
[2022-10-26 06:25] LABS: Anion Gap 14 (12-20); Carbon Dioxide 20 mmol/L (22-29)
[2022-10-26 07:31] LABS: Venous Blood Gas Refer to POC result
[2022-10-26 07:42] LABS: Venous Blood Gas Refer to POC result
[2022-10-26] MEDS: Albuterol/Iprat 2.5/0.5MG 3 ML AMPUL.NEB INHALE (07:54)
[2022-10-26] MEDS: Chlorhexidine Gluc Oral Rinse 15 ML MOUTHWASH BUCCAL ×3 (07:57→21:01)
[2022-10-26] MEDS: methylPREDNISolone Sod Succ 40 MG/ML VIAL IVPUSH ×2 (07:57→21:02)
[2022-10-26] MEDS: Sucralfate Oral Suspension 1 GM/10 ML ORAL.SUSP PO ×4 (07:57→21:01)
[2022-10-26] MEDS: rifAXIMin 550 MG TABLET PO ×3 (07:58→21:01)
[2022-10-26] MEDS: dilTIAZem HCL 50 MG/10 ML VIAL 25 MG IVPUSH (09:10)
[2022-10-26] MEDS: Urea 15 GM POWDER PO ×2 (09:18→17:24)
[2022-10-26 09:29] LABS: Complement C3 58 mg/dL (82-185)
--- NOTE | 2022-10-26 09:33 | MHC.CLN ---
F/U PT REMAINS INTUBATED AND SEDATED PT RECEIVING TF: PROMOTE AT MAX GOAL RATE 50ML/HR AND 120ML FWF Q 4 HRS TO PROVIDE 1200KCALS (1603KCALS WITH SEDATION; 22KCALS/KG BASED ON CMW), 75G PROTIEN (1.0G/KG), 1727ML TOTAL WATER FROM FORMULA AND FLUSHES (23ML/KG) CONTINUE TO MONITOR TOLERANCE, RESIDUALS AND LYTES
--- NOTE | 2022-10-26 09:44 | P.PNNP_ITS ---
Subjective Subjective Date of Service: 10/26/22 Interval history: seen and examined vented Physical Exam Vital Signs: Vital Signs: Last Vital Signs Temp 99.9 F 10/26/22 09:00 Pulse 94 10/26/22 09:00 Resp 21 H 10/26/22 09:00 BP 111/73 10/26/22 09:00 Pulse Ox 90 L 10/26/22 09:00 O2 Del Method Mechanical Ventil ation 10/26/22 09:00 O2 Flow Rate 60 10/24/22 07:42 FiO2 80 10/26/22 09:00 Oxygen Flow Rate 6 10/18/22 18:31 BMI result Body Mass Index 29.3 HEENT: Head: Yes normocephalic and Yes atraumatic Neck: Neck: Yes supple Resp: Auscultation: diminished lung sounds Cardio: Heart sounds: S1 normal heart sound present and S2 normal heart sound present GI: Palpation (GI): Soft to palpation and nontender Extrem: Right upper extremity: edema Objective Data Labs 10/26/22 04:30 10/26/22 04:30 Labs: Laboratory Results - last 24 hr 10/25/22 10/25/22 10/25/22 07:39 09:45 09:45 WBC RBC Hgb Hct MCV MCH MCHC RDW Plt Count MPV Immature Gran % (Auto) Neut % (Auto) Lymph % (Auto) [place] % (Auto) Eos % (Auto) Baso % (Auto) Lymph # (Auto) [place] # (Auto) Eos # (Auto) Baso # (Auto) Abs Immat Gran (auto) Absolute Neuts (auto) Absolute Nucleated RBC Nucleated RBC % (auto) Neutrophils % (Manual) Band Neutrophils % Lymphocytes % (Manual) Monocytes % (Manual) Metamyelocytes % Abs Neuts (Manual) Lymphocytes # (Manual) Monocytes # (Manual) Metamyelocytes # Nucleated RBCs Smudge Cells Toxic Vacuolation Platelet Estimate Large Platelets Plt Morphology Comment RBC Morphology Macrocytosis Ovalocytes Sanchez-Hawkins Bodies Startex Cells Acanthocytes (Spur) PT INR APTT VBG pH VBG pCO2 VBG pO2 VBG HCO3 VBG O2 Saturation VBG Base Excess Sodium Potassium Chloride Carbon Dioxide Anion Gap BUN Creatinine Estim Creat Clear Calc Estimated GFR Random Glucose Lactic Acid Lactic Acid F/U @ 2Hr Lactic Acid F/U @ 4Hr Calcium Phosphorus Magnesium Total Bilirubin AST ALT Alkaline Phosphatase Lactate Dehydrogenase Total Protein Albumin U Random Total Protein Ur Random Sodium Urine Creatinine Vancomycin Trough 12.7 Complement C3 58 L Complement C4 14 L Respiratory Panel [place] See Note Adenovirus (Rapid PCR) Not Detected B.pert (TEM-PCR) Not Detected B.parapertussis DNA PCR Not Detected C. pneumoniae DNA (PCR) Not Detected Coronavirus OC43 (PCR) Not Detected Coronavirus HKU1 (PCR) Not Detected Coronavirus 229E (PCR) Not Detected Coronavirus NL63 (PCR) Not Detected Human Metapneumovir PCR Not Detected Influenza A (RT-PCR) Not Detected Influenza B (RT-PCR) Not Detected M. pneumoniae (PCR) Not Detected Parainfluenza 1 (PCR) Not Detected Parainfluenza 2 (PCR) Not Detected Parainfluenza 3 (PCR) Not Detected Parainfluenza 4 (PCR) Not Detected RSV (PCR) Not Detected Entero/Rhino (PCR) Not Detected SARS-CoV-2 RNA (RT-PCR) Not Detected 10/25/22 10/25/22 10/25/22 09:45 10:12 10:18 WBC RBC Hgb Hct MCV MCH MCHC RDW Plt Count MPV Immature Gran % (Auto) Neut % (Auto) Lymph % (Auto) [place] % (Auto) Eos % (Auto) Baso % (Auto) Lymph # (Auto) [place] # (Auto) Eos # (Auto) Baso # (Auto) Abs Immat Gran (auto) Absolute Neuts (auto) Absolute Nucleated RBC Nucleated RBC % (auto) Neutrophils % (Manual) Band Neutrophils % Lymphocytes % (Manual) Monocytes % (Manual) Metamyelocytes % Abs Neuts (Manual) Lymphocytes # (Manual) Monocytes # (Manual) Metamyelocytes # Nucleated RBCs Smudge Cells Toxic Vacuolation Platelet Estimate Large Platelets Plt Morphology Comment RBC Morphology Macrocytosis Ovalocytes Sanchez-[place]kins Bodies [place] Cells Acanthocytes (Spur) PT INR APTT VBG pH VBG pCO2 VBG pO2 VBG HCO3 VBG O2 Saturation VBG Base Excess Sodium Potassium Chloride Carbon Dioxide Anion Gap BUN Creatinine Estim Creat Clear Calc Estimated GFR Random Glucose Lactic Acid Lactic Acid F/U @ 2Hr Lactic Acid F/U @ 4Hr 2.5 H* Calcium Phosphorus Magnesium Total Bilirubin AST ALT Alkaline Phosphatase Lactate Dehydrogenase 271 Total Protein Albumin U Random Total Protein 101 H Ur Random Sodium < 20.0 Urine Creatinine 85.81 Vancomycin Trough Complement C3 Complement C4 Respiratory Panel [place] Adenovirus (Rapid PCR) B.pert (TEM-PCR) B.parapertussis DNA PCR C. pneumoniae DNA (PCR) Coronavirus OC43 (PCR) Coronavirus HKU1 (PCR) Coronavirus 229E (PCR) Coronavirus NL63 (PCR) Human Metapneumovir PCR Influenza A (RT-PCR) Influenza B (RT-PCR) M. pneumoniae (PCR) Parainfluenza 1 (PCR) Parainfluenza 2 (PCR) Parainfluenza 3 (PCR) Parainfluenza 4 (PCR) RSV (PCR) Entero/Rhino (PCR) SARS-CoV-2 RNA (RT-PCR) 10/25/22 10/25/22 10/25/22 16:03 16:03 16:03 WBC 42.6 H* RBC 4.45 L Hgb 9.9 L Hct 36.1 L MCV 81.1 MCH 22.2 L MCHC 27.4 L RDW 29.2 H Plt Count 199 MPV TNP Immature Gran % (Auto) Cancelled Neut % (Auto) Cancelled Lymph % (Auto) Cancelled [place] % (Auto) Cancelled Eos % (Auto) Cancelled Baso % (Auto) Cancelled Lymph # (Auto) Cancelled [place] # (Auto) Cancelled Eos # (Auto) Cancelled Baso # (Auto) Cancelled Abs Immat Gran (auto) Cancelled Absolute Neuts (auto) Cancelled Absolute Nucleated RBC 2.700 H Nucleated RBC % (auto) 6.3 H Neutrophils % (Manual) 63 Band Neutrophils % 28 H Lymphocytes % (Manual) 1 L Monocytes % (Manual) 3 Metamyelocytes % 5 Abs Neuts (Manual) 38.8 H Lymphocytes # (Manual) 0.4 L Monocytes # (Manual) 1.3 H Metamyelocytes # 2.1 Nucleated RBCs 3 H Smudge Cells Toxic Vacuolation Platelet Estimate NORMAL Large Platelets PRESENT Plt Morphology Comment NORMAL RBC Morphology NOTED Macrocytosis 1+ (5-14) Ovalocytes 1+ (5-14) Sanchez-Hawkins Bodies [place] Cells Acanthocytes (Spur) 2+ (3-5) PT INR APTT VBG pH VBG pCO2 VBG pO2 VBG HCO3 VBG O2 Saturation VBG Base Excess Sodium 130 L Potassium 3.9 Chloride 99 Carbon Dioxide 21 L Anion Gap 14 BUN 37 H Creatinine 1.39 Estim Creat Clear Calc 48.5 Estimated GFR 50 Random Glucose 239 H Lactic Acid 2.4 H* Lactic Acid F/U @ 2Hr Lactic Acid F/U @ 4Hr Calcium 9.0 Phosphorus Magnesium Total Bilirubin 2.9 H AST 26 ALT 27 Alkaline Phosphatase 53 Lactate Dehydrogenase Total Protein 5.4 L Albumin 3.1 L U Random Total Protein Ur Random Sodium Urine Creatinine Vancomycin Trough Complement C3 Complement C4 Respiratory Panel [place] Adenovirus (Rapid PCR) B.pert (TEM-PCR) B.parapertussis DNA PCR C. pneumoniae DNA (PCR) Coronavirus OC43 (PCR) Coronavirus HKU1 (PCR) Coronavirus 229E (PCR) Coronavirus NL63 (PCR) Human Metapneumovir PCR Influenza A (RT-PCR) Influenza B (RT-PCR) M. pneumoniae (PCR) Parainfluenza 1 (PCR) Parainfluenza 2 (PCR) Parainfluenza 3 (PCR) Parainfluenza 4 (PCR) RSV (PCR) Entero/Rhino (PCR) SARS-CoV-2 RNA (RT-PCR) 10/25/22 10/25/22 10/26/22 16:04 18:22 04:30 WBC 42.4 H* RBC 4.18 L Hgb 9.4 L Hct 33.9 L MCV 81.1 MCH 22.5 L MCHC 27.7 L RDW 28.3 H Plt Count TNP MPV TNP Immature Gran % (Auto) Cancelled Neut % (Auto) Cancelled Lymph % (Auto) Cancelled [place] % (Auto) Cancelled Eos % (Auto) Cancelled Baso % (Auto) Cancelled Lymph # (Auto) Cancelled [place] # (Auto) Cancelled Eos # (Auto) Cancelled Baso # (Auto) Cancelled Abs Immat Gran (auto) Cancelled Absolute Neuts (auto) Cancelled Absolute Nucleated RBC 2.720 H Nucleated RBC % (auto) 6.4 H Neutrophils % (Manual) 84 H Band Neutrophils % 12 H Lymphocytes % (Manual) Monocytes % (Manual) 4 Metamyelocytes % Abs Neuts (Manual) 40.7 H Lymphocytes # (Manual) Monocytes # (Manual) 1.7 H Metamyelocytes # Nucleated RBCs 13 H Smudge Cells PRESENT Toxic Vacuolation PRESENT Platelet Estimate NORMAL Large Platelets PRESENT Plt Morphology Comment NORMAL RBC Morphology NOTED Macrocytosis 1+ (5-14) Ovalocytes 1+ (5-14) Sanchez-Hawkins Bodies PRESENT Startex Cells 1+ (0-2) Acanthocytes (Spur) 1+ (0-2) PT INR APTT VBG pH 7.34 VBG pCO2 39 VBG pO2 48 VBG HCO3 21 L VBG O2 Saturation 71.0 VBG Base Excess -3.8 Sodium Potassium Chloride Carbon Dioxide Anion Gap BUN Creatinine Estim Creat Clear Calc Estimated GFR Random Glucose Lactic Acid Lactic Acid F/U @ 2Hr 2.3 H* Lactic Acid F/U @ 4Hr Calcium Phosphorus Magnesium Total Bilirubin AST ALT Alkaline Phosphatase Lactate Dehydrogenase Total Protein Albumin U Random Total Protein Ur Random Sodium Urine Creatinine Vancomycin Trough Complement C3 Complement C4 Respiratory Panel [place] Adenovirus (Rapid PCR) B.pert (TEM-PCR) B.parapertussis DNA PCR C. pneumoniae DNA (PCR) Coronavirus OC43 (PCR) Coronavirus HKU1 (PCR) Coronavirus 229E (PCR) Coronavirus NL63 (PCR) Human Metapneumovir PCR Influenza A (RT-PCR) Influenza B (RT-PCR) M. pneumoniae (PCR) Parainfluenza 1 (PCR) Parainfluenza 2 (PCR) Parainfluenza 3 (PCR) Parainfluenza 4 (PCR) RSV (PCR) Entero/Rhino (PCR) SARS-CoV-2 RNA (RT-PCR) 10/26/22 10/26/22 10/26/22 04:30 04:30 04:39 WBC RBC Hgb Hct MCV MCH MCHC RDW Plt Count MPV Immature Gran % (Auto) Neut % (Auto) Lymph % (Auto) [place] % (Auto) Eos % (Auto) Baso % (Auto) Lymph # (Auto) [place] # (Auto) Eos # (Auto) Baso # (Auto) Abs Immat Gran (auto) Absolute Neuts (auto) Absolute Nucleated RBC Nucleated RBC % (auto) Neutrophils % (Manual) Band Neutrophils % Lymphocytes % (Manual) Monocytes % (Manual) Metamyelocytes % Abs Neuts (Manual) Lymphocytes # (Manual) Monocytes # (Manual) Metamyelocytes # Nucleated RBCs Smudge Cells Toxic Vacuolation Platelet Estimate Large Platelets Plt Morphology Comment RBC Morphology Macrocytosis Ovalocytes Sanchez-Hawkins Bodies Roseann Cells Acanthocytes (Spur) PT 26.5 H INR 2.2 H APTT 43.9 H VBG pH 7.35 VBG pCO2 40 VBG pO2 52 VBG HCO3 22 VBG O2 Saturation 82.0 VBG Base Excess -2.7 Sodium 126 L Potassium 4.2 Chloride 96 Carbon Dioxide 20 L Anion Gap 14 BUN 38 H Creatinine 0.96 Estim Creat Clear Calc 70.2 Estimated GFR > 60 Random Glucose 217 H Lactic Acid Lactic Acid F/U @ 2Hr Lactic Acid F/U @ 4Hr Calcium 8.5 Phosphorus 2.7 Magnesium 1.8 Total Bilirubin 2.7 H AST 20 ALT 27 Alkaline Phosphatase 69 Lactate Dehydrogenase Total Protein 5.5 L Albumin 3.1 L U Random Total Protein Ur Random Sodium Urine Creatinine Vancomycin Trough Complement C3 Complement C4 Respiratory Panel [place] Adenovirus (Rapid PCR) B.pert (TEM-PCR) B.parapertussis DNA PCR C. pneumoniae DNA (PCR) Coronavirus OC43 (PCR) Coronavirus HKU1 (PCR) Coronavirus 229E (PCR) Coronavirus NL63 (PCR) Human Metapneumovir PCR Influenza A (RT-PCR) Influenza B (RT-PCR) M. pneumoniae (PCR) Parainfluenza 1 (PCR) Parainfluenza 2 (PCR) Parainfluenza 3 (PCR) Parainfluenza 4 (PCR) RSV (PCR) Entero/Rhino (PCR) SARS-CoV-2 RNA (RT-PCR) Microbiology Microbiology Results: Microbiology 10/24/22 06:11 Blood - Venous Blood Culture - Preliminary No growth after 48 hours. 10/24/22 06:11 Blood - Venous Blood Culture - Preliminary No growth after 48 hours. 10/18/22 19:16 Blood - Venous Blood Culture - Final No growth after 5 days. 10/18/22 19:05 Blood - Venous Blood Culture - Final No growth after 5 days. Procedures Date of Service Date of Service: 10/26/22 Assessment & Plan Assessment and plan (1) SAYDA (acute kidney injury): Status: Acute (2) Hyponatremia: Status: Acute (3) Heart failure with preserved ejection fraction: Status: Acute Plan kidney function normalized SAYDA due to renal hypoperfusion Krystin < 20 known HFpEF hypervolemic hyponatremia REC diurese if hemodynamics allows follow kidney function and electrolytes ? Time Spent With Patient Time: Total time managing care of this patient today ____ minutes. Progress Note: Quality Stroke Does the patient have a stroke diagnosis?: No
[2022-10-26] MEDS: dilTIAZem HCL 125 MG in 0.9 % Sodium Chloride 100 ML 15 MG IVCONT (09:45)
[2022-10-26] MEDS: Norepinephrine Bitartrate/D5W 8 MG/250 ML PLAST..BAG 70.04 MG IV (10:37)
[2022-10-26] MEDS: Digoxin 0.25 MG TABLET PO (11:11)
[2022-10-26] MEDS: Digoxin 0.5 MG/2 ML AMPUL 0.25 MG IVPUSH (11:12)
[2022-10-26] MEDS: Metoprolol Tartrate 5 MG/5 ML VIAL 2.5 MG IVPUSH (11:20)
[2022-10-26] MEDS: Norepinephrine Bitartrate/D5W 8 MG/250 ML PLAST..BAG 76.41 MG IV (14:12)
[2022-10-26] MEDS: vancomycin HCL 1,000 MG in 0.9 % Sodium Chloride 250 ML 270 MG IV (14:14)
--- NOTE | 2022-10-26 14:50 | PM.CCPN ---
Subjective Subjective Date of Service: 10/26/22 Interval History: 72-year-old male came down because of severe respiratory distress acute hypoxic respiratory failure who at least did not have any gross pulmonary emboli despite the dramatic space physiology and that by CT scan and no distinct infiltrate but the an effusion that was the edge just not of adequate volume to safely tap for diagnostic purposes who that had a septic presentation with now resolving lactic acidosis and resolving acute kidney insufficiency and coagulopathy and this is on broad antibiotic coverage and review of his peripheral smear and indicated a septic picture with polys in prematures but there were no intracellular organisms skin 0 consistent with so and not infection but we continue to cover broadly he continues to improve and then today he went into atrial flutter with rate of 140 and then even with control of his heart rate with IV Cardizem it compromised his blood pressure requiring increasing amounts of Levophed and we eventually had to go to cardioversion after we at heart rate control we briefly got back to sinus rhythm and it looked like he converted from atrial flutter to atrial fibrillation heart rate controlled at approximately 90 allowing us to minimize his cuff is Cardizem drip so we could preserve his blood pressure med at least between 90 in and 100 systolic and we gave him 0.5 mg of digoxin and then initiated Rythmol at 150 mg spontaneously converting him back to sinus tachycardia at a rate of 127 with oxygen saturations 93 and blood pressure improvement to 135/93 and a mean of 105 He had low-grade temperature and he had very purulent sputum that was suctioned and were waiting for Gram stain results Critical Care Time (minutes): 60 Physical Exam Vital Signs: Vital Signs: Last Vital Signs Temp 100.0 F 10/26/22 14:00 Pulse 128 H 10/26/22 14:12 Resp 23 H 10/26/22 14:00 BP 122/86 10/26/22 14:12 Pulse Ox 92 10/26/22 14:00 O2 Del Method Mechanical Ventil ation 10/26/22 14:00 O2 Flow Rate 60 10/24/22 07:42 FiO2 80 10/26/22 14:00 Oxygen Flow Rate 6 10/18/22 18:31 BMI result Body Mass Index 29.3 Vital signs diminished with the atrial flutter but to once we were back in sinus rhythm marked improvement in hemodynamics but still sinus tachycardia 127 Abdomen soft with no organomegaly Chest without adventitious sounds Bedside echo same predominant right heart failure diminished diastolic reserve the left ventricle and septal paradox Skin without acrocyanosis without cellulitis Objective Data Labs 10/26/22 04:30 10/26/22 04:30 Labs: Laboratory Results - last 24 hr 10/25/22 10/25/22 10/25/22 09:45 16:03 16:03 WBC 42.6 H* RBC 4.45 L Hgb 9.9 L Hct 36.1 L MCV 81.1 MCH 22.2 L MCHC 27.4 L RDW 29.2 H Plt Count 199 MPV TNP Immature Gran % (Auto) Cancelled Neut % (Auto) Cancelled Lymph % (Auto) Cancelled [place] % (Auto) Cancelled Eos % (Auto) Cancelled Baso % (Auto) Cancelled Lymph # (Auto) Cancelled [place] # (Auto) Cancelled Eos # (Auto) Cancelled Baso # (Auto) Cancelled Abs Immat Gran (auto) Cancelled Absolute Neuts (auto) Cancelled Absolute Nucleated RBC 2.700 H Nucleated RBC % (auto) 6.3 H Neutrophils % (Manual) 63 Band Neutrophils % 28 H Lymphocytes % (Manual) 1 L Monocytes % (Manual) 3 Metamyelocytes % 5 Abs Neuts (Manual) 38.8 H Lymphocytes # (Manual) 0.4 L Monocytes # (Manual) 1.3 H Metamyelocytes # 2.1 Nucleated RBCs 3 H Smudge Cells Toxic Vacuolation Platelet Estimate NORMAL Large Platelets PRESENT Plt Morphology Comment NORMAL RBC Morphology NOTED Macrocytosis 1+ (5-14) Ovalocytes 1+ (5-14) [place] Bodies Rose[place] Cells Acanthocytes (Spur) 2+ (3-5) PT INR APTT VBG pH VBG pCO2 VBG pO2 VBG HCO3 VBG O2 Saturation VBG Base Excess Sodium 130 L Potassium 3.9 Chloride 99 Carbon Dioxide 21 L Anion Gap 14 BUN 37 H Creatinine 1.39 Estim Creat Clear Calc 48.5 Estimated GFR 50 Random Glucose 239 H Lactic Acid Lactic Acid F/U @ 2Hr Calcium 9.0 Phosphorus Magnesium Total Bilirubin 2.9 H AST 26 ALT 27 Alkaline Phosphatase 53 Total Protein 5.4 L Albumin 3.1 L Complement C3 58 L Complement C4 14 L 10/25/22 10/25/22 10/25/22 16:03 16:04 18:22 WBC RBC Hgb Hct MCV MCH MCHC RDW Plt Count MPV Immature Gran % (Auto) Neut % (Auto) Lymph % (Auto) [place] % (Auto) Eos % (Auto) Baso % (Auto) Lymph # (Auto) [place] # (Auto) Eos # (Auto) Baso # (Auto) Abs Immat Gran (auto) Absolute Neuts (auto) Absolute Nucleated RBC Nucleated RBC % (auto) Neutrophils % (Manual) Band Neutrophils % Lymphocytes % (Manual) Monocytes % (Manual) Metamyelocytes % Abs Neuts (Manual) Lymphocytes # (Manual) Monocytes # (Manual) Metamyelocytes # Nucleated RBCs Smudge Cells Toxic Vacuolation Platelet Estimate Large Platelets Plt Morphology Comment RBC Morphology Macrocytosis Ovalocytes [place] Bodies [place] Cells Acanthocytes (Spur) PT INR APTT VBG pH 7.34 VBG pCO2 39 VBG pO2 48 VBG HCO3 21 L VBG O2 Saturation 71.0 VBG Base Excess -3.8 Sodium Potassium Chloride Carbon Dioxide Anion Gap BUN Creatinine Estim Creat Clear Calc Estimated GFR Random Glucose Lactic Acid 2.4 H* Lactic Acid F/U @ 2Hr 2.3 H* Calcium Phosphorus Magnesium Total Bilirubin AST ALT Alkaline Phosphatase Total Protein Albumin Complement C3 Complement C4 10/26/22 10/26/22 10/26/22 04:30 04:30 04:30 WBC 42.4 H* RBC 4.18 L Hgb 9.4 L Hct 33.9 L MCV 81.1 MCH 22.5 L MCHC 27.7 L RDW 28.3 H Plt Count TNP MPV TNP Immature Gran % (Auto) Cancelled Neut % (Auto) Cancelled Lymph % (Auto) Cancelled [place] % (Auto) Cancelled Eos % (Auto) Cancelled Baso % (Auto) Cancelled Lymph # (Auto) Cancelled [place] # (Auto) Cancelled Eos # (Auto) Cancelled Baso # (Auto) Cancelled Abs Immat Gran (auto) Cancelled Absolute Neuts (auto) Cancelled Absolute Nucleated RBC 2.720 H Nucleated RBC % (auto) 6.4 H Neutrophils % (Manual) 84 H Band Neutrophils % 12 H Lymphocytes % (Manual) Monocytes % (Manual) 4 Metamyelocytes % Abs Neuts (Manual) 40.7 H Lymphocytes # (Manual) Monocytes # (Manual) 1.7 H Metamyelocytes # Nucleated RBCs 13 H Smudge Cells PRESENT Toxic Vacuolation PRESENT Platelet Estimate NORMAL Large Platelets PRESENT Plt Morphology Comment NORMAL RBC Morphology NOTED Macrocytosis 1+ (5-14) Ovalocytes 1+ (5-14) [place] Bodies PRESENT [place] Cells 1+ (0-2) Acanthocytes (Spur) 1+ (0-2) PT 26.5 H INR 2.2 H APTT 43.9 H VBG pH VBG pCO2 VBG pO2 VBG HCO3 VBG O2 Saturation VBG Base Excess Sodium 126 L Potassium 4.2 Chloride 96 Carbon Dioxide 20 L Anion Gap 14 BUN 38 H Creatinine 0.96 Estim Creat Clear Calc 70.2 Estimated GFR > 60 Random Glucose 217 H Lactic Acid Lactic Acid F/U @ 2Hr Calcium 8.5 Phosphorus 2.7 Magnesium 1.8 Total Bilirubin 2.7 H AST 20 ALT 27 Alkaline Phosphatase 69 Total Protein 5.5 L Albumin 3.1 L Complement C3 Complement C4 10/26/22 04:39 WBC RBC Hgb Hct MCV MCH MCHC RDW Plt Count MPV Immature Gran % (Auto) Neut % (Auto) Lymph % (Auto) [place] % (Auto) Eos % (Auto) Baso % (Auto) Lymph # (Auto) [place] # (Auto) Eos # (Auto) Baso # (Auto) Abs Immat Gran (auto) Absolute Neuts (auto) Absolute Nucleated RBC Nucleated RBC % (auto) Neutrophils % (Manual) Band Neutrophils % Lymphocytes % (Manual) Monocytes % (Manual) Metamyelocytes % Abs Neuts (Manual) Lymphocytes # (Manual) Monocytes # (Manual) Metamyelocytes # Nucleated RBCs Smudge Cells Toxic Vacuolation Platelet Estimate Large Platelets Plt Morphology Comment RBC Morphology Macrocytosis Ovalocytes [place] Bodies [place] Cells Acanthocytes (Spur) PT INR APTT VBG pH 7.35 VBG pCO2 40 VBG pO2 52 VBG HCO3 22 VBG O2 Saturation 82.0 VBG Base Excess -2.7 Sodium Potassium Chloride Carbon Dioxide Anion Gap BUN Creatinine Estim Creat Clear Calc Estimated GFR Random Glucose Lactic Acid Lactic Acid F/U @ 2Hr Calcium Phosphorus Magnesium Total Bilirubin AST ALT Alkaline Phosphatase Total Protein Albumin Complement C3 Complement C4 Microbiology Microbiology Results: Microbiology 10/26/22 08:12 Sputum - Suctioned Gram Stain - Final 10/24/22 06:11 Blood - Venous Blood Culture - Preliminary No growth after 48 hours. 10/24/22 06:11 Blood - Venous Blood Culture - Preliminary No growth after 48 hours. 10/18/22 19:16 Blood - Venous Blood Culture - Final No growth after 5 days. 10/18/22 19:05 Blood - Venous Blood Culture - Final No growth after 5 days. Progress Note: A&P Assessment and plan (1) Heart failure with preserved ejection fraction: Status: Acute (2) Hyponatremia: Status: Acute (3) Pneumonia: Status: Acute (4) Sepsis: Status: Acute (5) Acute and chronic respiratory failure with hypoxia: Status: Acute (6) Pleural effusion: Status: Acute (7) Pulmonary arterial hypertension: Status: Acute (8) Anemia: Status: Acute (9) Chronic right heart failure: Status: Acute (10) Atrial flutter: Status: Acute (11) Preoperative cardiovascular examination: Status: Acute (12) AAA (abdominal aortic aneurysm) without rupture: Status: Acute (13) Acute on chronic anemia: Status: Acute (14) Chronic anticoagulation: Status: Acute (15) CHF exacerbation: Status: Acute (16) SAYDA (acute kidney injury): Status: Acute (17) ABLA (acute blood loss anemia): Status: Acute (18) Acute and chronic respiratory failure: Status: Acute (19) Atrial flutter with rapid ventricular response: Status: Acute (20) CHF exacerbation: Status: Acute (21) Morbid obesity: Status: Acute (22) Congestive heart failure: Status: Acute (23) Hypoxemia: Status: Acute (24) COPD (chronic obstructive pulmonary disease): Status: Acute (25) COPD with exacerbation: Status: Acute Plan So at this point we will continue with the Rythmol on a q.8 hourly basis hoping to maintain sinus rhythm which is garvey and follow closely his his blood gas and chemistry but the other new problem is the development of hyponatremia which I am sure is on the basis of high-output failure and because this developing rapidly I do not want that to affect mental status I am going to with attempt to give him urea in order to produce a water diuresis Quality Stroke Does the patient have a stroke diagnosis?: No VTE Prior VTE?: No VTE Risk Level:: Medical - moderate - high VTE Device Contraindication: N/A - Device Ordered VTE Drug Contraindication: Treatment Not Indicated
--- NOTE | 2022-10-26 14:58 | W.PM.CCHP ---
Procedures Date of Service Date of Service: 10/26/22 Procedure Note Procedure Note: Due to drop in blood pressure when the patient converted to atrial flutter which did not improve with heart rate control on Cardizem he had an emergent cardioversion done with a biphasic device utilizing 75 joules x1 initially converting to sinus rhythm but then to atrial fibrillation and then medicating with Rythmol and digoxin he subsequently converted back again to sinus rhythm and this went without complication under the propofol sedation Family permission was given by sister
[2022-10-26 15:18] LABS: VBG Base Excess -3.1 mmol/L; VBG HCO3 22 mmol/L (22-26); VBG pCO2 41 mmHg; VBG pH 7.33 (7.32-7.43); VBG pO2 45 mmHg
[2022-10-26 15:35] LABS: Anion Gap 12 (12-20); Blood Urea Nitrogen 45 mg/dL (9-16); Calcium 8.9 mg/dL (8.4-10.2); Carbon Dioxide 22 mmol/L (22-29); Chloride 95 mmol/L (96-108); Creatinine Clr Calc Pharmacy 81.3; Estimated Glomerular Filt Rate > 60; Glucose Random 275 mg/dL (60-115); Magnesium 1.7 mg/dL (1.6-2.6); Potassium 4.7 mmol/L (3.3-5.1); Sodium 124 mmol/L (135-145)
[2022-10-26] MEDS: propofoL 1,000 MG/100 ML VIAL 10.19 MG IVCONT (17:16)
[2022-10-26] MEDS: Norepinephrine Bitartrate/D5W 8 MG/250 ML PLAST..BAG 55.72 MG IV ×2 (17:30→21:26)
[2022-10-26 19:25] LABS: Vancomycin Random 8.3 mcg/mL (15-20)
--- NOTE | 2022-10-26 19:26 | PC.NURSE ---
Patient remains sedated on Propofol drip, tolerating well. Patient does not follow commands, open eyes, minimal cough and gag. PERRLA. Movement noted in lower extremities spontaneously. Withdraws from pain Temp 101, ice bath given. IV abx given as ordered per EMAR. 0900 this am HR noted to be 130's Aflutter. IV Cardizem, IV Metoprolol given with minimal effect. Patient Cardioverted at bedside with 75 joules, converted into Sinus rhythm briefly. In and out of Aflutter and Sinus tachycardia. EKG done. Cardizem drip started and Digoxin IV and po given per MD request. CVP 12-13. Continues on Vasopressin and Levophed drip, titrated for goal MAP >80. Titrated several times by Dr Greer. Continues on AC settings on the Vent tolerating well. Thick brown sputum sent to lab. No BM in at least 3 days, MD made aware. Unable to collect CDIFF sample. Bishop draining clear yellow, good output. Urea given x2 with good effect with diuresis. Last Na 124. Family updated, questions and concerns answered. Bed alarm on, safety maintained. See assessment documentation.
--- NOTE | 2022-10-26 19:49 | HE.PHANOTE ---
RE: vanco Patient's creatinine significantly improved, trough on 10/26 came back low at 8.3mg/L. Increased dose to 1000mg Q12H with predicted AUC of 498mg/L, trough of 14.8. Next level to be drawn 10/27/22 @1200. Will continue to monitor renal function
[2022-10-26] MEDS: Enoxaparin Sodium 80 MG/0.8 ML SYRINGE SUBCUT (21:02)
[2022-10-26 22:11] LABS: Venous Blood Gas Refer to POC result
[2022-10-27] VITALS (40 sets, daily range): BP systolic 108–129; BP diastolic 53–84; PULSE 78–129; RESP 20–28; TEMP 34.1–38.6; O2SAT 90–98; BMI 32.4
[2022-10-27] MEDS: fentaNYL citrate/PF 100 MCG/2 ML VIAL 25 MCG IVPUSH (00:13)
[2022-10-27] MEDS: vancomycin HCL 1,000 MG in 0.9 % Sodium Chloride 250 ML 270 MG IV ×2 (01:17→16:35)
[2022-10-27] MEDS: propofoL 1,000 MG/100 ML VIAL 5.09 MG IVCONT (01:25)
[2022-10-27] MEDS: Norepinephrine Bitartrate/D5W 8 MG/250 ML PLAST..BAG 49.35 MG IV (01:40)
[2022-10-27] MEDS: Vasopressin 20 UNIT/100 ML INFUS..BTL 12 UNIT IV (02:28)
[2022-10-27 04:37] LABS: VBG HCO3 22 mmol/L (22-26); VBG pCO2 36 mmHg; VBG pH 7.38 (7.32-7.43); VBG pO2 38 mmHg
[2022-10-27 05:01] LABS: Basophils Absolute Auto 0.1 X10*3/uL (0.0-0.2); Basophils Percent Auto 0.2 % (0-2); Creatinine Clr Calc Pharmacy 88.7; Estimated Glomerular Filt Rate > 60; Hematocrit 31.5 % (42.0-52.0); Hemoglobin 8.8 g/dl (14.0-18.0); Imm Gran Abs Auto 0.49 X10*3/uL (0.00-0.03); Imm Gran Pct Auto 1.4 % (0.0-0.4); Lymphocytes Absolute Auto 0.1 X10*3/uL (1.2-4.9); Lymphocytes Percent Auto 0.2 % (20-40); MANUAL DIFF FLAG SCAN; Mean Corpuscular HGB Conc 27.9 g/dl (31.0-36.0); Mean Corpuscular Hemoglobin 22.1 pg (27.0-33.0); Mean Corpuscular Volume 78.9 fL (80.0-98.0); Monocytes Absolute Auto 1.4 X10*3/uL (0.1-1.2); Monocytes Percent Auto 3.9 % (2-11); Neutrophils Percent Auto 94.3 % (45-73); PLT CLUMP 1; Red Blood Count 3.99 X10*6/uL (4.60-5.80); Red Cell Distribution Width 28.3 % (11.0-16.0); SCAN SMEAR FLAG 1
[2022-10-27 05:03] LABS: NRBC Pct Auto 8.3 /100WBC (0.0-0.2)
[2022-10-27 05:04] LABS: Platelet Count 170 X10*3/uL (160-400)
[2022-10-27 05:05] LABS: Anion Gap 12 (12-20); Blood Urea Nitrogen 54 mg/dL (9-16); Calcium 9.1 mg/dL (8.4-10.2); Carbon Dioxide 21 mmol/L (22-29); Chloride 93 mmol/L (96-108); Creatinine Clr Calc Pharmacy 87.6; Estimated Glomerular Filt Rate > 60; Glucose Random 264 mg/dL (60-115); Magnesium 1.9 mg/dL (1.6-2.6); Phosphorus 1.7 mg/dL (2.7-4.5); Potassium 5.3 mmol/L (3.3-5.1); Sodium 121 mmol/L (135-145)
[2022-10-27 05:15] LABS: Venous Blood Gas Refer to POC result
[2022-10-27 05:24] LABS: SLIDE REVIEW VERIFIED
[2022-10-27] MEDS: Norepinephrine Bitartrate/D5W 8 MG/250 ML PLAST..BAG 42.98 MG IV (06:31)
[2022-10-27] MEDS: Doxycycline Hyclate 100 MG in 0.9 % Sodium Chloride 250 ML 166.67 MG IV ×2 (06:33→18:40)
--- NOTE | 2022-10-27 08:15 | PM.PNNEP ---
Subjective Subjective Date of Service: 10/27/22 Interval history: seen and examined vented Physical Exam Vital Signs: Vital Signs: Last Vital Signs Temp 99.1 F 10/27/22 08:00 Pulse 97 10/27/22 08:00 Resp 21 H 10/27/22 08:00 BP 108/76 10/27/22 08:00 Pulse Ox 95 10/27/22 08:00 O2 Del Method Mechanical Ventil ation 10/27/22 08:00 O2 Flow Rate 60 10/24/22 07:42 FiO2 75 10/27/22 08:02 Oxygen Flow Rate 6 10/18/22 18:31 BMI result Body Mass Index 32.4 HEENT: Head: Yes normocephalic and Yes atraumatic Neck: Neck: Yes supple Resp: Auscultation: diminished lung sounds Cardio: Heart sounds: S1 normal heart sound present and S2 normal heart sound present GI: Palpation (GI): Soft to palpation and nontender Extrem: Right upper extremity: edema Objective Data Labs 10/27/22 04:27 10/27/22 04:27 Labs: Laboratory Results - last 24 hr 10/25/22 10/26/22 10/26/22 09:45 12:29 15:09 WBC RBC Hgb Hct MCV MCH MCHC RDW Plt Count MPV Immature Gran % (Auto) Neut % (Auto) Lymph % (Auto) [place] % (Auto) Eos % (Auto) Baso % (Auto) Lymph # (Auto) [place] # (Auto) Eos # (Auto) Baso # (Auto) Abs Immat Gran (auto) Absolute Neuts (auto) Absolute Nucleated RBC Nucleated RBC % (auto) Smear Tech's Comments VBG pH 7.33 VBG pCO2 41 VBG pO2 45 VBG HCO3 22 VBG O2 Saturation 72.0 VBG Base Excess -3.1 Sodium Potassium Chloride Carbon Dioxide Anion Gap BUN Creatinine Estim Creat Clear Calc Estimated GFR Random Glucose Calcium Phosphorus Magnesium Albumin Random Vancomycin 8.3 L Complement C3 58 L Complement C4 14 L 10/26/22 10/27/22 10/27/22 15:11 04:27 04:27 WBC 35.0 H* RBC 3.99 L Hgb 8.8 L Hct 31.5 L MCV 78.9 L MCH 22.1 L MCHC 27.9 L RDW 28.3 H Plt Count 170 MPV Not Reportable Immature Gran % (Auto) 1.4 H Neut % (Auto) 94.3 H Lymph % (Auto) 0.2 L [place] % (Auto) 3.9 Eos % (Auto) 0.0 Baso % (Auto) 0.2 Lymph # (Auto) 0.1 L [place] # (Auto) 1.4 H Eos # (Auto) 0.0 Baso # (Auto) 0.1 Abs Immat Gran (auto) 0.49 H Absolute Neuts (auto) 33.0 H Absolute Nucleated RBC 2.910 H Nucleated RBC % (auto) 8.3 H Smear Tech's Comments VERIFIED VBG pH VBG pCO2 VBG pO2 VBG HCO3 VBG O2 Saturation VBG Base Excess Sodium 124 L Potassium 4.7 Chloride 95 L Carbon Dioxide 22 Anion Gap 12 BUN 45 H Creatinine 0.83 0.76 Estim Creat Clear Calc 81.3 88.7 Estimated GFR > 60 > 60 Random Glucose 275 H Calcium 8.9 Phosphorus Magnesium 1.7 Albumin Random Vancomycin Complement C3 Complement C4 10/27/22 10/27/22 04:27 04:27 WBC RBC Hgb Hct MCV MCH MCHC RDW Plt Count MPV Immature Gran % (Auto) Neut % (Auto) Lymph % (Auto) [place] % (Auto) Eos % (Auto) Baso % (Auto) Lymph # (Auto) [place] # (Auto) Eos # (Auto) Baso # (Auto) Abs Immat Gran (auto) Absolute Neuts (auto) Absolute Nucleated RBC Nucleated RBC % (auto) Smear Tech's Comments VBG pH 7.38 VBG pCO2 36 VBG pO2 38 VBG HCO3 22 VBG O2 Saturation 63.0 VBG Base Excess -2.0 Sodium 121 L Potassium 5.3 H Chloride 93 L Carbon Dioxide 21 L Anion Gap 12 BUN 54 H Creatinine 0.77 Estim Creat Clear Calc 87.6 Estimated GFR > 60 Random Glucose 264 H Calcium 9.1 Phosphorus 1.7 L Magnesium 1.9 Albumin 3.0 L Random Vancomycin Complement C3 Complement C4 Microbiology Microbiology Results: Microbiology 10/26/22 08:12 Sputum - Suctioned Gram Stain - Final 10/24/22 06:11 Blood - Venous Blood Culture - Preliminary No growth after 48 hours. 10/24/22 06:11 Blood - Venous Blood Culture - Preliminary No growth after 48 hours. 10/18/22 19:16 Blood - Venous Blood Culture - Final No growth after 5 days. 10/18/22 19:05 Blood - Venous Blood Culture - Final No growth after 5 days. Procedures Date of Service Date of Service: 10/27/22 Assessment & Plan Assessment and plan (1) SAYDA (acute kidney injury): Status: Acute (2) Hyponatremia: Status: Acute (3) Heart failure with preserved ejection fraction: Status: Acute Plan kidney function normalized Sna down SAYDA due to renal hypoperfusion Krystin < 20 known HFpEF hypervolemic hyponatremia REC diurese if hemodynamics allows isotonic fluid in all drips sodium zirconium for high potassium cortisol level follow kidney function and electrolytes ? Time Spent With Patient Time: Total time managing care of this patient today ____ minutes. Progress Note: Quality Stroke Does the patient have a stroke diagnosis?: No
[2022-10-27] MEDS: Enoxaparin Sodium 80 MG/0.8 ML SYRINGE SUBCUT ×2 (08:36→20:13)
[2022-10-27] MEDS: Chlorhexidine Gluc Oral Rinse 15 ML MOUTHWASH BUCCAL ×3 (08:36→20:13)
[2022-10-27] MEDS: Furosemide 20 MG/2 ML VIAL IVPUSH (08:37)
[2022-10-27] MEDS: methylPREDNISolone Sod Succ 40 MG/ML VIAL IVPUSH ×2 (08:37→20:14)
[2022-10-27] MEDS: Urea 15 GM POWDER PO (08:37)
[2022-10-27] MEDS: rifAXIMin 550 MG TABLET PO ×3 (08:38→20:14)
[2022-10-27] MEDS: propofoL 1,000 MG/100 ML VIAL 10.19 MG IVCONT ×2 (09:15→18:48)
[2022-10-27] MEDS: Vasopressin 20 UNIT/100 ML INFUS..BTL 9 UNIT IV ×2 (11:38→21:54)
[2022-10-27 12:19] LABS: Vancomycin Random 15.6 mcg/mL (15-20)
[2022-10-27] MEDS: Norepinephrine Bitartrate/D5W 8 MG/250 ML PLAST..BAG 39.8 MG IV ×2 (12:55→18:47)
--- NOTE | 2022-10-27 14:59 | P.PNCC_ITS ---
Subjective Subjective Date of Service: 10/27/22 Interval History: 72-year-old male with known severe COPD and secondary PULM pulmonary hypertension with cor pulmonale longstanding who is here for several days when I was called because of a sudden onset of severe shortness of breath with a negative CT angiogram for pulmonary embolism but he was he behaves like he had severe acute space disease her and he had also been chronically because of paroxysmal atrial fibrillation on apixaban which they had to stop because of some upper oral pharyngeal bleeding lesion requiring transfusion of several units of blood Markedly hyper been E a breathing nearly 30 liters/minute he was tiring knee was not able to sustain even on the BiPAP with 1200 cc tidal volumes and he was on 100% FiO2 because he had a dramatic acute onset of hypoxemia and there was clearly no witnessed aspiration brought him down says to the ICU and intubated and has remained so and we sustain them clearly a at lower more comfortable and compatible tidal volumes and he was intractably at high FiO2 is which we are j ust now weaning down to approximately 70% after 3 days but by bedside echo he has a he has always had predominant right heart failure with an enormous right ventricle and bulging interventricular septum into the left ventricle but with diminished systolic reserve of the left ventricle partly because of septal paradox and and definitely diminished diastolic reserve of the left ventricle but of course profound right heart dysfunction and 24 hours ago he went into atrial flutter and that really cost him in terms of blood pressure and clinically cardiac output renal were fully reflected in a diminished mixed venous oxygen saturation he needed a high heart rates we try to convert him with IV Cardizem was successfully at least increases level of block but he certainly dependent on high heart rates clinically ultimately we did a electrical cardioversion at 75 joules briefly successful in sinus but not sustained went back into atrial fibrillation/atrial flutter more controlled heart rates more organized rhythm and and he started to recover and at the expense of increasing press or support he no a better blood pressure a better urinary output and we never lost that but he is has since developed progressive and profoundly increasing hyponatremia literally from the low 130s to 120 6-120 4-121 in less than 24 hours and so today after giving him several doses of urea which may have been holding the line but certainly it is not reversing the hyponatremia we got tolvaptan and started on 30 mg once daily with follow-up chemistries in between so we did we do not to rapidly correct the hyponatremia and In addition I a.m. I have started him on Rythmol 150 mg q.8 hourly gave him 1 dose of 0.5 mg of digoxin min probably will give another 0.25 today and by tomorrow he will be in a steady state on the Rythmol and if he remains in flutter is a mechanism I might re-attempt cardioversion with the benefit of the drug on board and the other positive aspect is a drop in his white count finally from an intractable 42,000 down to 35,000 maintaining a left shift but diminished premature cells more mature granulocytes and we are growing Gram- positive cocci whether staff for strep he is covered antibiotic johnson and waiting for the species to come back Critical Care Time (minutes): 45 Physical Exam Vital Signs: Vital Signs: Last Vital Signs Temp 98.9 F 10/27/22 14:00 Pulse 123 H 10/27/22 14:00 Resp 24 H 10/27/22 14:00 BP 120/78 10/27/22 14:00 Pulse Ox 90 L 10/27/22 14:00 O2 Del Method Large Bore Nasal Cannula 10/27/22 14:00 O2 Flow Rate 60 10/24/22 07:42 FiO2 70 10/27/22 14:00 Oxygen Flow Rate 6 10/18/22 18:31 BMI result Body Mass Index 32.4 Less respiratory effort and he is a comfortable degree of sedation worry is arousable yet in a very quiet and synchronous with the ventilator and is on a pressure control mode so he is definitely much more comfortable but his minutes ventilatory requirements as well as FiO2 or slowly diminishing and from a cardiovascular standpoint he is tolerating the presence of the atrial flutter with an average ventricular rate response now of 123 oxygen saturation of 90% and his current pressure is 113/65 with a mean of 83 There is no inferior vena caval distension if anything there is actually no collapse with inspiration no neck vein distension he has got good bilateral carotid upstrokes Abdomen soft benign tolerating feedings no organomegaly Lungs with diminished bilateral breath sounds no adventitious sounds Objective Data Labs 10/27/22 04:27 10/27/22 04:27 Labs: Laboratory Results - last 24 hr 10/26/22 10/26/22 10/26/22 12:29 15:09 15:11 WBC RBC Hgb Hct MCV MCH MCHC RDW Plt Count MPV Immature Gran % (Auto) Neut % (Auto) Lymph % (Auto) [place] % (Auto) Eos % (Auto) Baso % (Auto) Lymph # (Auto) [place] # (Auto) Eos # (Auto) Baso # (Auto) Abs Immat Gran (auto) Absolute Neuts (auto) Absolute Nucleated RBC Nucleated RBC % (auto) Smear Tech's Comments VBG pH 7.33 VBG pCO2 41 VBG pO2 45 VBG HCO3 22 VBG O2 Saturation 72.0 VBG Base Excess -3.1 Sodium 124 L Potassium 4.7 Chloride 95 L Carbon Dioxide 22 Anion Gap 12 BUN 45 H Creatinine 0.83 Estim Creat Clear Calc 81.3 Estimated GFR > 60 Random Glucose 275 H Calcium 8.9 Phosphorus Magnesium 1.7 Albumin Random Vancomycin 8.3 L 10/27/22 10/27/22 10/27/22 04:27 04:27 04:27 WBC 35.0 H* RBC 3.99 L Hgb 8.8 L Hct 31.5 L MCV 78.9 L MCH 22.1 L MCHC 27.9 L RDW 28.3 H Plt Count 170 MPV Not Reportable Immature Gran % (Auto) 1.4 H Neut % (Auto) 94.3 H Lymph % (Auto) 0.2 L [place] % (Auto) 3.9 Eos % (Auto) 0.0 Baso % (Auto) 0.2 Lymph # (Auto) 0.1 L [place] # (Auto) 1.4 H Eos # (Auto) 0.0 Baso # (Auto) 0.1 Abs Immat Gran (auto) 0.49 H Absolute Neuts (auto) 33.0 H Absolute Nucleated RBC 2.910 H Nucleated RBC % (auto) 8.3 H Smear Tech's Comments VERIFIED VBG pH VBG pCO2 VBG pO2 VBG HCO3 VBG O2 Saturation VBG Base Excess Sodium 121 L Potassium 5.3 H Chloride 93 L Carbon Dioxide 21 L Anion Gap 12 BUN 54 H Creatinine 0.76 0.77 Estim Creat Clear Calc 88.7 87.6 Estimated GFR > 60 > 60 Random Glucose 264 H Calcium 9.1 Phosphorus 1.7 L Magnesium 1.9 Albumin 3.0 L Random Vancomycin 10/27/22 10/27/22 04:27 12:00 WBC RBC Hgb Hct MCV MCH MCHC RDW Plt Count MPV Immature Gran % (Auto) Neut % (Auto) Lymph % (Auto) [place] % (Auto) Eos % (Auto) Baso % (Auto) Lymph # (Auto) [place] # (Auto) Eos # (Auto) Baso # (Auto) Abs Immat Gran (auto) Absolute Neuts (auto) Absolute Nucleated RBC Nucleated RBC % (auto) Smear Tech's Comments VBG pH 7.38 VBG pCO2 36 VBG pO2 38 VBG HCO3 22 VBG O2 Saturation 63.0 VBG Base Excess -2.0 Sodium Potassium Chloride Carbon Dioxide Anion Gap BUN Creatinine Estim Creat Clear Calc Estimated GFR Random Glucose Calcium Phosphorus Magnesium Albumin Random Vancomycin 15.6 Microbiology Microbiology Results: Microbiology 10/26/22 08:12 Sputum - Suctioned Gram Stain - Final 10/26/22 08:12 Sputum - Suctioned Sputum Culture - Preliminary Culture in progress. 10/24/22 06:11 Blood - Venous Blood Culture - Preliminary No growth after 48 hours. 10/24/22 06:11 Blood - Venous Blood Culture - Preliminary No growth after 48 hours. 10/18/22 19:16 Blood - Venous Blood Culture - Final No growth after 5 days. 10/18/22 19:05 Blood - Venous Blood Culture - Final No growth after 5 days. Progress Note: A&P Assessment and plan (1) Heart failure with preserved ejection fraction: Status: Acute (2) Hyponatremia: Status: Acute (3) Pneumonia: Status: Acute (4) Sepsis: Status: Acute (5) Acute and chronic respiratory failure with hypoxia: Status: Acute (6) Pleural effusion: Status: Acute (7) Pulmonary arterial hypertension: Status: Acute (8) Anemia: Status: Acute (9) Chronic right heart failure: Status: Acute (10) Atrial flutter: Status: Acute (11) Preoperative cardiovascular examination: Status: Acute (12) AAA (abdominal aortic aneurysm) without rupture: Status: Acute (13) Acute on chronic anemia: Status: Acute (14) Chronic anticoagulation: Status: Acute (15) CHF exacerbation: Status: Acute (16) SAYDA (acute kidney injury): Status: Acute (17) ABLA (acute blood loss anemia): Status: Acute (18) Acute and chronic respiratory failure: Status: Acute (19) Atrial flutter with rapid ventricular response: Status: Acute (20) CHF exacerbation: Status: Acute (21) Morbid obesity: Status: Acute (22) Congestive heart failure: Status: Acute (23) Hypoxemia: Status: Acute (24) COPD (chronic obstructive pulmonary disease): Status: Acute (25) COPD with exacerbation: Status: Acute Plan So will recheck blood work for degree of hyponatremia to decide on next dose of tolvaptan and if still in atrial flutter in the morning might consider cardioversion Once we get back the organism we compare down the antibiotics Quality Stroke Does the patient have a stroke diagnosis?: No VTE Prior VTE?: No VTE Risk Level:: Medical - moderate - high VTE Device Contraindication: N/A - Device Ordered VTE Drug Contraindication: Treatment Not Indicated
[2022-10-27 15:22] LABS: VBG Base Excess -0.9 mmol/L; VBG HCO3 24 mmol/L (22-26); VBG pCO2 43 mmHg; VBG pH 7.35 (7.32-7.43); VBG pO2 45 mmHg
[2022-10-27 15:34] LABS: Anion Gap 13 (12-20); Blood Urea Nitrogen 61 mg/dL (9-16); Calcium 9.3 mg/dL (8.4-10.2); Carbon Dioxide 23 mmol/L (22-29); Chloride 92 mmol/L (96-108); Creatinine Clr Calc Pharmacy 93.1; Estimated Glomerular Filt Rate > 60; Glucose Random 283 mg/dL (60-115); Magnesium 1.9 mg/dL (1.6-2.6); Potassium 5.3 mmol/L (3.3-5.1); Sodium 123 mmol/L (135-145)
[2022-10-27 23:07] LABS: Venous Blood Gas Refer to POC result
[2022-10-27 23:26] LABS: Anion Gap 17 (12-20); Blood Urea Nitrogen 57 mg/dL (9-16); Calcium 8.8 mg/dL (8.4-10.2); Carbon Dioxide 20 mmol/L (22-29); Chloride 92 mmol/L (96-108); Creatinine Clr Calc Pharmacy 84.2; Estimated Glomerular Filt Rate > 60; Glucose Random 251 mg/dL (60-115); Potassium 5.8 mmol/L (3.3-5.1); Sodium 123 mmol/L (135-145)
[2022-10-27] MEDS: dilTIAZem HCL 125 MG in 0.9 % Sodium Chloride 100 ML IVCONT (23:48)
[2022-10-28] VITALS (42 sets, daily range): BP systolic 37–130; BP diastolic 22–85; PULSE 78–130; RESP 16–25; TEMP 35.1–37.8; O2SAT 84–98; BMI 31.9
[2022-10-28] MEDS: Norepinephrine Bitartrate/D5W 8 MG/250 ML PLAST..BAG 30.25 MG IV (00:01)
[2022-10-28] MEDS: propofoL 1,000 MG/100 ML VIAL 10.19 MG IVCONT ×2 (00:30→19:26)
[2022-10-28] MEDS: vancomycin HCL 1,000 MG in 0.9 % Sodium Chloride 250 ML 270 MG IV (01:25)
[2022-10-28 05:29] LABS: VBG Base Excess -0.5 mmol/L; VBG HCO3 25 mmol/L (22-26); VBG pCO2 43 mmHg; VBG pH 7.36 (7.32-7.43); VBG pO2 47 mmHg
[2022-10-28] MEDS: Doxycycline Hyclate 100 MG in 0.9 % Sodium Chloride 250 ML 166.67 MG IV ×2 (05:31→17:11)
[2022-10-28 05:44] LABS: Venous Blood Gas Refer to POC result
[2022-10-28 05:48] LABS: Neutrophils Absolute Auto 23.4 x10*3/uL (2.0-8.3); PLT ABN DIST 1; SCAN SMEAR FLAG 1
[2022-10-28 05:50] LABS: Basophils Percent Auto 0.2 % (0-2); Hematocrit 31.7 % (42.0-52.0); Hemoglobin 8.8 g/dl (14.0-18.0); Imm Gran Abs Auto 0.57 X10*3/uL (0.00-0.03); Imm Gran Pct Auto 2.2 % (0.0-0.4); Lymphocytes Absolute Auto 0.8 X10*3/uL (1.2-4.9); Lymphocytes Percent Auto 3.1 % (20-40); MANUAL DIFF FLAG SCAN; Mean Corpuscular HGB Conc 27.8 g/dl (31.0-36.0); Mean Corpuscular Hemoglobin 22.1 pg (27.0-33.0); Mean Corpuscular Volume 79.6 fL (80.0-98.0); Monocytes Absolute Auto 1.6 X10*3/uL (0.1-1.2); Monocytes Percent Auto 6.1 % (2-11); NRBC Pct Auto 16.7 /100WBC (0.0-0.2); Neutrophils Percent Auto 88.4 % (45-73); PLT CLUMP 1; Red Blood Count 3.98 X10*6/uL (4.60-5.80); Red Cell Distribution Width 28.6 % (11.0-16.0)
[2022-10-28 05:56] LABS: Platelet Count 197 X10*3/uL (160-400); White Blood Count 26.4 X10*3/uL (4.8-10.8)
[2022-10-28 06:04] LABS: Albumin Level 2.9 g/dL (3.5-5.0); Anion Gap 16 (12-20); Blood Urea Nitrogen 56 mg/dL (9-16); Calcium 9.2 mg/dL (8.4-10.2); Carbon Dioxide 22 mmol/L (22-29); Chloride 92 mmol/L (96-108); Creatinine Clr Calc Pharmacy 83.2; Estimated Glomerular Filt Rate > 60; Glucose Random 260 mg/dL (60-115); Magnesium 2.1 mg/dL (1.6-2.6); Phosphorus 2.2 mg/dL (2.7-4.5); Potassium 5.7 mmol/L (3.3-5.1); Sodium 124 mmol/L (135-145)
[2022-10-28 06:07] LABS: SLIDE REVIEW VERIFIED
[2022-10-28 06:19] LABS: CDiff Gene PCR NEGATIVE (Negative)
--- NOTE | 2022-10-28 07:50 | PM.PNNEP ---
Subjective Subjective Date of Service: 10/28/22 Interval history: seen and examined vented events reviewed Physical Exam Vital Signs: Vital Signs: Last Vital Signs Temp 99.0 F 10/28/22 07:00 Pulse 93 10/28/22 07:00 Resp 22 H 10/28/22 07:00 BP 114/73 10/28/22 07:00 Pulse Ox 91 L 10/28/22 07:00 O2 Del Method Mechanical Ventil ation 10/28/22 07:00 O2 Flow Rate 60 10/24/22 07:42 FiO2 70 10/28/22 07:00 Oxygen Flow Rate 6 10/18/22 18:31 BMI result Body Mass Index 31.9 HEENT: Head: Yes normocephalic and Yes atraumatic Neck: Neck: Yes supple Resp: Auscultation: diminished lung sounds Cardio: Heart sounds: S1 normal heart sound present and S2 normal heart sound present GI: Palpation (GI): Soft to palpation and nontender Extrem: Right upper extremity: edema Objective Data Labs 10/28/22 05:16 10/28/22 05:16 Labs: Laboratory Results - last 24 hr 10/27/22 10/27/22 10/27/22 12:00 15:09 15:14 WBC RBC Hgb Hct MCV MCH MCHC RDW Plt Count MPV Immature Gran % (Auto) Neut % (Auto) Lymph % (Auto) [place] % (Auto) Eos % (Auto) Baso % (Auto) Lymph # (Auto) [place] # (Auto) Eos # (Auto) Baso # (Auto) Abs Immat Gran (auto) Absolute Neuts (auto) Absolute Nucleated RBC Nucleated RBC % (auto) Smear Tech's Comments VBG pH 7.35 VBG pCO2 43 VBG pO2 45 VBG HCO3 24 VBG O2 Saturation 73.0 VBG Base Excess -0.9 Sodium 123 L Potassium 5.3 H Chloride 92 L Carbon Dioxide 23 Anion Gap 13 BUN 61 H Creatinine 0.76 Estim Creat Clear Calc 93.1 Estimated GFR > 60 Random Glucose 283 H Calcium 9.3 Phosphorus Magnesium 1.9 Albumin Random Vancomycin 15.6 C. difficile Tox B Gene 10/27/22 10/28/22 10/28/22 21:41 04:36 05:16 WBC 26.4 H RBC 3.98 L Hgb 8.8 L Hct 31.7 L MCV 79.6 L MCH 22.1 L MCHC 27.8 L RDW 28.6 H Plt Count 197 MPV TNP Immature Gran % (Auto) 2.2 H Neut % (Auto) 88.4 H Lymph % (Auto) 3.1 L [place] % (Auto) 6.1 Eos % (Auto) 0.0 Baso % (Auto) 0.2 Lymph # (Auto) 0.8 L [place] # (Auto) 1.6 H Eos # (Auto) 0.0 Baso # (Auto) 0.0 Abs Immat Gran (auto) 0.57 H Absolute Neuts (auto) 23.4 H Absolute Nucleated RBC 4.420 H Nucleated RBC % (auto) 16.7 H Smear Tech's Comments VERIFIED VBG pH VBG pCO2 VBG pO2 VBG HCO3 VBG O2 Saturation VBG Base Excess Sodium 123 L Potassium 5.8 H Chloride 92 L Carbon Dioxide 20 L Anion Gap 17 BUN 57 H Creatinine 0.84 Estim Creat Clear Calc 84.2 Estimated GFR > 60 Random Glucose 251 H Calcium 8.8 Phosphorus Magnesium Albumin Random Vancomycin C. difficile Tox B Gene NEGATIVE 10/28/22 10/28/22 05:16 05:18 WBC RBC Hgb Hct MCV MCH MCHC RDW Plt Count MPV Immature Gran % (Auto) Neut % (Auto) Lymph % (Auto) [place] % (Auto) Eos % (Auto) Baso % (Auto) Lymph # (Auto) [place] # (Auto) Eos # (Auto) Baso # (Auto) Abs Immat Gran (auto) Absolute Neuts (auto) Absolute Nucleated RBC Nucleated RBC % (auto) Smear Tech's Comments VBG pH 7.36 VBG pCO2 43 VBG pO2 47 VBG HCO3 25 VBG O2 Saturation 74.0 VBG Base Excess -0.5 Sodium 124 L Potassium 5.7 H Chloride 92 L Carbon Dioxide 22 Anion Gap 16 BUN 56 H Creatinine 0.85 Estim Creat Clear Calc 83.2 Estimated GFR > 60 Random Glucose 260 H Calcium 9.2 Phosphorus 2.2 L Magnesium 2.1 Albumin 2.9 L Random Vancomycin C. difficile Tox B Gene Microbiology Microbiology Results: Microbiology 10/26/22 08:12 Sputum - Suctioned Gram Stain - Final 10/26/22 08:12 Sputum - Suctioned Sputum Culture - Preliminary Culture in progress. 10/24/22 06:11 Blood - Venous Blood Culture - Preliminary No growth after 48 hours. 10/24/22 06:11 Blood - Venous Blood Culture - Preliminary No growth after 48 hours. 10/18/22 19:16 Blood - Venous Blood Culture - Final No growth after 5 days. 10/18/22 19:05 Blood - Venous Blood Culture - Final No growth after 5 days. Procedures Date of Service Date of Service: 10/28/22 Assessment & Plan Assessment and plan (1) SAYDA (acute kidney injury): Status: Acute (2) Hyponatremia: Status: Acute (3) Heart failure with preserved ejection fraction: Status: Acute Plan SAYDA due to renal hypoperfusion resolved Krystin < 20 known HFpEF hypervolemic hyponatremia currently on vasopressin receptor antagonists REC diurese if hemodynamics allows isotonic fluid in all drips sodium zirconium for high potassium follow kidney function and electrolytes ? Time Spent With Patient Time: Total time managing care of this patient today ____ minutes. Progress Note: Quality Stroke Does the patient have a stroke diagnosis?: No
[2022-10-28 08:02] LABS: Cortisol Random 11.8 ug/dL
[2022-10-28] MEDS: Norepinephrine Bitartrate/D5W 8 MG/250 ML PLAST..BAG 39.8 MG IV ×2 (08:13→14:51)
[2022-10-28] MEDS: Hydrocortisone Sod Succ/PF 100 MG VIAL IVPUSH (08:20)
[2022-10-28] MEDS: Chlorhexidine Gluc Oral Rinse 15 ML MOUTHWASH BUCCAL ×3 (08:20→21:16)
[2022-10-28] MEDS: Enoxaparin Sodium 80 MG/0.8 ML SYRINGE SUBCUT ×2 (08:20→21:15)
[2022-10-28] MEDS: rifAXIMin 550 MG TABLET PO ×3 (08:20→21:16)
[2022-10-28] MEDS: Vasopressin 20 UNIT/100 ML INFUS..BTL 9 UNIT IV (10:22)
--- NOTE | 2022-10-28 11:51 | PM.CCPN ---
Subjective Subjective Date of Service: 10/28/22 Interval History: 72-year-old with longstanding COPD and secondary pulmonary hypertension with longstanding cor pulmonale and then he developed acute hypoxemic respiratory failure and was in marked respiratory distress with marked increase in his work of breathing extremely hyper but knee ache with 28-30 L minute ventilation all of a sudden no associated chest pain CTA negative for pulmonary embolism at least a gross 1 and no distinct infiltrate on the on the examination of the parenchyma and my bedside echo at that time 1st of all following his EKG which showed no acute ST-T changes did demonstrate that he has got marked right ventricular enlargement with the interventricular septum this certainly pushed well into the left ventricle and that septal paradox of course adding to the diminished left ventricular systolic as well as diastolic reserve the LV ejection fraction probably in the 40-45% range and and no pericardial disease no primary valve disease and he already had increasing BUN and creatinine consistent with acute kidney injury we brought him down and needed to intubate him at that time and he required to have a high FiO2 for quite some time and I am sure that in the no in large part not only would did he developed but appear to be acute space disease but probably considerable right to left shunt and BMI gas was very hard to compensate for his oxygen saturation and between that and the initial level Levophed support and then subsequently because of persistent hypotension vasopressin as well restored his blood pressure and then his urine output all of a sudden became nonoliguric and then eventually he looked like he was diuresing and clearly he the hemodynamics were consistent with high output failure his mixed venous oxygen saturations initially in the mid 80s and and he was in sinus rhythm but it at least 2-3 days ago he converted to atrial flutter which she had been doing by history and but we have been off of most of the hospitalization from his chronic apixaban because he had a bleeding oral pharyngeal lesion that we made him require several units of transfusion so at this point we did restore his anticoagulation and because he clinically loss cardiac output and you could see there was a drop in mixed venous oxygen saturation there was a drop in his blood pressure blood pressure and a drop in his urine output so a attempted cardioversion which went without complication briefly restoring sinus rhythm sinus tachycardia but then went back into the atrial flutter we had heart rate control with IV Cardizem which was not helpful if he lost his heart rate did drop below 100 he lost cardiac output clinically so that has come off since I started him on Rythmol and figured we have to wait 4-5 have lives cell that brings this up to today for a to be in a steady state and I gave him 0.5 mg of digoxin for rate control and I may wind up giving him another dose of 0.25 mg today but I am considering cardioversion Now because he has been completely unresponsive on weaning doses of propofol I stopped the propofol completely and he is be opens his eyes to loud voice and it seems that weekly he is following commands commands so I believe cognitive function is demonstrating some reversibility here Along the way he developed progressive and relatively rapid hyponatremia which I do believe is part and parcel of the high output heart failure and he fell from the low 130s to 121 in in probably 12 hours we did not have tolvaptan so I gave him several doses of urea by mouth I then received tolvaptan and at the 30 mg dose and the sodium that had gone down to 121 is now up to 124 so it is coming up at precisely the soft rate we were hoping and he is beginning to show signs of awakening so I do not think he has had any compromise from the hyponatremia and not from its repair We know thus far were growing a Gram-positive coccus and he is on antibiotics he would he had some somewhat broadened the coverage but we are beginning to cut that back as we receive more information but we have no bacterial species identified just yet Critical Care Time (minutes): 45 Physical Exam Vital Signs: Vital Signs: Last Vital Signs Temp 97.5 F 10/28/22 11:00 Pulse 120 H 10/28/22 11:00 Resp 22 H 10/28/22 11:00 BP 118/75 10/28/22 11:00 Pulse Ox 90 L 10/28/22 11:00 O2 Del Method Mechanical Ventil ation 10/28/22 11:00 O2 Flow Rate 60 10/24/22 07:42 FiO2 70 10/28/22 11:00 Oxygen Flow Rate 6 10/18/22 18:31 BMI result Body Mass Index 31.9 current blood pressure 116/73 with a mean of 88 and that is on 0.03 units per minute of vasopressin and 0.25 micrograms/kilogram per minute of Levophed atrial flutter with ventricular response rate 119 oxygen saturation 91% on FiO2 of 70% moving all 4 extremities bedside cardiac exam unchanged with marked right ventricular enlargement and forced interventricular septum towards the left ventricle consistent with with cor pulmonale and and septal paradox and reduce systolic and diastolic reserve of the left ventricle abdomen soft nontender no organomegaly tolerating feedings Objective Data Labs 10/28/22 05:16 10/28/22 05:16 Labs: Laboratory Results - last 24 hr 10/27/22 10/27/22 10/27/22 12:00 15:09 15:14 WBC RBC Hgb Hct MCV MCH MCHC RDW Plt Count MPV Immature Gran % (Auto) Neut % (Auto) Lymph % (Auto) [place] % (Auto) Eos % (Auto) Baso % (Auto) Lymph # (Auto) [place] # (Auto) Eos # (Auto) Baso # (Auto) Abs Immat Gran (auto) Absolute Neuts (auto) Absolute Nucleated RBC Nucleated RBC % (auto) Smear Tech's Comments VBG pH 7.35 VBG pCO2 43 VBG pO2 45 VBG HCO3 24 VBG O2 Saturation 73.0 VBG Base Excess -0.9 Sodium 123 L Potassium 5.3 H Chloride 92 L Carbon Dioxide 23 Anion Gap 13 BUN 61 H Creatinine 0.76 Estim Creat Clear Calc 93.1 Estimated GFR > 60 Random Glucose 283 H Calcium 9.3 Phosphorus Magnesium 1.9 Albumin Random Cortisol Random Vancomycin 15.6 C. difficile Tox B Gene 10/27/22 10/28/22 10/28/22 21:41 04:36 05:16 WBC 26.4 H RBC 3.98 L Hgb 8.8 L Hct 31.7 L MCV 79.6 L MCH 22.1 L MCHC 27.8 L RDW 28.6 H Plt Count 197 MPV TNP Immature Gran % (Auto) 2.2 H Neut % (Auto) 88.4 H Lymph % (Auto) 3.1 L [place] % (Auto) 6.1 Eos % (Auto) 0.0 Baso % (Auto) 0.2 Lymph # (Auto) 0.8 L [place] # (Auto) 1.6 H Eos # (Auto) 0.0 Baso # (Auto) 0.0 Abs Immat Gran (auto) 0.57 H Absolute Neuts (auto) 23.4 H Absolute Nucleated RBC 4.420 H Nucleated RBC % (auto) 16.7 H Smear Tech's Comments VERIFIED VBG pH VBG pCO2 VBG pO2 VBG HCO3 VBG O2 Saturation VBG Base Excess Sodium 123 L Potassium 5.8 H Chloride 92 L Carbon Dioxide 20 L Anion Gap 17 BUN 57 H Creatinine 0.84 Estim Creat Clear Calc 84.2 Estimated GFR > 60 Random Glucose 251 H Calcium 8.8 Phosphorus Magnesium Albumin Random Cortisol Random Vancomycin C. difficile Tox B Gene NEGATIVE 10/28/22 10/28/22 10/28/22 05:16 05:18 05:18 WBC RBC Hgb Hct MCV MCH MCHC RDW Plt Count MPV Immature Gran % (Auto) Neut % (Auto) Lymph % (Auto) [place] % (Auto) Eos % (Auto) Baso % (Auto) Lymph # (Auto) [place] # (Auto) Eos # (Auto) Baso # (Auto) Abs Immat Gran (auto) Absolute Neuts (auto) Absolute Nucleated RBC Nucleated RBC % (auto) Smear Tech's Comments VBG pH 7.36 VBG pCO2 43 VBG pO2 47 VBG HCO3 25 VBG O2 Saturation 74.0 VBG Base Excess -0.5 Sodium 124 L Potassium 5.7 H Chloride 92 L Carbon Dioxide 22 Anion Gap 16 BUN 56 H Creatinine 0.85 Estim Creat Clear Calc 83.2 Estimated GFR > 60 Random Glucose 260 H Calcium 9.2 Phosphorus 2.2 L Magnesium 2.1 Albumin 2.9 L Random Cortisol 11.8 Random Vancomycin C. difficile Tox B Gene Microbiology Microbiology Results: Microbiology 10/26/22 08:12 Sputum - Suctioned Gram Stain - Final 10/26/22 08:12 Sputum - Suctioned Sputum Culture - Preliminary Staphylococcus aureus 10/24/22 06:11 Blood - Venous Blood Culture - Preliminary No growth after 48 hours. 10/24/22 06:11 Blood - Venous Blood Culture - Preliminary No growth after 48 hours. 10/18/22 19:16 Blood - Venous Blood Culture - Final No growth after 5 days. 10/18/22 19:05 Blood - Venous Blood Culture - Final No growth after 5 days. Progress Note: A&P Assessment and plan (1) Heart failure with preserved ejection fraction: Status: Acute (2) Hyponatremia: Status: Acute (3) Pneumonia: Status: Acute (4) Sepsis: Status: Acute (5) Acute and chronic respiratory failure with hypoxia: Status: Acute (6) Pleural effusion: Status: Acute (7) Pulmonary arterial hypertension: Status: Acute (8) Anemia: Status: Acute (9) Chronic right heart failure: Status: Acute (10) Preoperative cardiovascular examination: Status: Acute (11) Atrial flutter: Status: Acute (12) AAA (abdominal aortic aneurysm) without rupture: Status: Acute (13) Acute on chronic anemia: Status: Acute (14) Chronic anticoagulation: Status: Acute (15) CHF exacerbation: Status: Acute (16) SAYDA (acute kidney injury): Status: Acute (17) ABLA (acute blood loss anemia): Status: Acute (18) Acute and chronic respiratory failure: Status: Acute (19) Atrial flutter with rapid ventricular response: Status: Acute (20) CHF exacerbation: Status: Acute (21) Morbid obesity: Status: Acute (22) Congestive heart failure: Status: Acute (23) Hypoxemia: Status: Acute (24) COPD (chronic obstructive pulmonary disease): Status: Acute (25) COPD with exacerbation: Status: Acute Plan plan at this point is continuing of course his blood pressure and cardiac output support as above and also the above antibiotics very very slow weaning of this support but he has been on the Lovenox and as such, I might consider cardioversion because he is in a steady state on the Rythmol and definitely will add hemodynamic support but if not today then potentially tomorrow as a sign out to Cardiology but the hyponatremia which we will check on today if he has not exceeded sodium of 130 we might give him a 3rd days dose tomorrow of the tolvaptan Quality Stroke Does the patient have a stroke diagnosis?: No VTE Prior VTE?: No VTE Risk Level:: Medical - moderate - high VTE Device Contraindication: N/A - Device Ordered VTE Drug Contraindication: Treatment Not Indicated
[2022-10-28 12:50] LABS: Vancomycin Random 17.7 mcg/mL (15-20)
[2022-10-28] MEDS: vancomycin HCL 750 MG in 0.9 % Sodium Chloride 250 ML 265 MG IV (15:17)
[2022-10-28] MEDS: Vasopressin 20 UNIT/100 ML INFUS..BTL 6 UNIT IV (17:15)
[2022-10-28 20:47] LABS: Anion Gap 15 (12-20); Blood Urea Nitrogen 53 mg/dL (9-16); Calcium 9.1 mg/dL (8.4-10.2); Carbon Dioxide 22 mmol/L (22-29); Chloride 94 mmol/L (96-108); Creatinine Clr Calc Pharmacy 82.6; Estimated Glomerular Filt Rate > 60; Glucose Random 274 mg/dL (60-115); Potassium 6.1 mmol/L (3.3-5.1); Sodium 125 mmol/L (135-145)
[2022-10-28] MEDS: Norepinephrine Bitartrate/D5W 8 MG/250 ML PLAST..BAG 42.98 MG IV (21:10)
[2022-10-28] MEDS: Sodium Polystyrene Sulfon/Sorb 15 GM/60 ML ORAL.SUSP PO (21:19)
[2022-10-28] MEDS: propofoL 1,000 MG/100 ML VIAL 15.28 MG IVCONT (23:36)
[2022-10-29] VITALS (44 sets, daily range): BP systolic 85–116; BP diastolic 59–82; PULSE 95–121; RESP 17–22; TEMP 35.2–37.4; O2SAT 89–96; BMI 32.4
[2022-10-29] MEDS: Norepinephrine Bitartrate/D5W 8 MG/250 ML PLAST..BAG 42.98 MG IV (02:11)
[2022-10-29] MEDS: vancomycin HCL 750 MG in 0.9 % Sodium Chloride 250 ML 265 MG IV (02:14)
[2022-10-29 04:58] LABS: Hematocrit 31.8 % (42.0-52.0); Hemoglobin 8.8 g/dl (14.0-18.0); Mean Corpuscular HGB Conc 27.7 g/dl (31.0-36.0); SCAN SMEAR FLAG 1
[2022-10-29 05:00] LABS: VBG Base Excess -0.5 mmol/L; VBG HCO3 25 mmol/L (22-26); VBG pCO2 47 mmHg; VBG pH 7.33 (7.32-7.43); VBG pO2 46 mmHg
[2022-10-29 05:00] LABS: Basophils Absolute Auto 0.1 X10*3/uL (0.0-0.2); Basophils Percent Auto 0.4 % (0-2); Eosinophils Absolute Auto 0.1 X10*3/uL (0.0-0.4); Eosinophils Percent Auto 0.5 % (0-4); Imm Gran Abs Auto 1.17 X10*3/uL (0.00-0.03); Imm Gran Pct Auto 4.7 % (0.0-0.4); Lymphocytes Absolute Auto 0.7 X10*3/uL (1.2-4.9); Lymphocytes Percent Auto 2.9 % (20-40); MANUAL DIFF FLAG SCAN; Mean Corpuscular Hemoglobin 22.4 pg (27.0-33.0); Mean Corpuscular Volume 80.9 fL (80.0-98.0); Monocytes Absolute Auto 3.3 X10*3/uL (0.1-1.2); Monocytes Percent Auto 13.1 % (2-11); Neutrophils Absolute Auto 19.6 x10*3/uL (2.0-8.3); Neutrophils Percent Auto 78.4 % (45-73); PLT CLUMP 1; Red Blood Count 3.93 X10*6/uL (4.60-5.80); Red Cell Distribution Width 28.6 % (11.0-16.0)
[2022-10-29 05:07] LABS: NRBC Pct Auto 25.1 /100WBC (0.0-0.2); PLT ABN DIST 1; Platelet Count 219 X10*3/uL (160-400)
[2022-10-29] MEDS: Doxycycline Hyclate 100 MG in 0.9 % Sodium Chloride 250 ML 166.67 MG IV (05:09)
[2022-10-29 05:19] LABS: SLIDE REVIEW VERIFIED
[2022-10-29] MEDS: propofoL 1,000 MG/100 ML VIAL 15.28 MG IVCONT (05:19)
[2022-10-29 05:21] LABS: Albumin Level 2.8 g/dL (3.5-5.0); Anion Gap 15 (12-20); Blood Urea Nitrogen 54 mg/dL (9-16); Calcium 8.9 mg/dL (8.4-10.2); Carbon Dioxide 22 mmol/L (22-29); Chloride 94 mmol/L (96-108); Creatinine Clr Calc Pharmacy 76.9; Estimated Glomerular Filt Rate > 60; Glucose Random 276 mg/dL (60-115); Magnesium 2.2 mg/dL (1.6-2.6); Phosphorus 2.6 mg/dL (2.7-4.5); Potassium 5.8 mmol/L (3.3-5.1); Sodium 125 mmol/L (135-145)
[2022-10-29 05:24] LABS: Venous Blood Gas Refer to POC result
--- NOTE | 2022-10-29 05:27 | PC.NURSE ---
ASSUMED CARE OF PT AT 1900. AT THAT TIME, RESP RATE WAS UP INTO THE HIGH 20'S-30 AND O2 SAT WAS MID TO UPPER 80'S. PT WAS SUCTIONED AND REPOSITIONED WITH NO EFFECT AND HIGH RESP RATE WAS SETTING OFF THE VENT ALARMS. PROVIDER ORDERED TO RESTART PROPOFOL WHICH HAD BEEN ON HOLD SINCE ABOUT 0700. ONCE PROPOFOL RESTARTED, RESP RATE CAME DOWN. FIO2 HAD BEEN INCRESED TO 100% BUT LATER SUCCESSFULLY WEANED TO 70%. BP STABLE ON VASOPRESSIN AND LEVOPHED DRIPS. PT RECEIVED KAEXALATE VIA OGT FOR HIGH K+ AND HAD 2 LOOSE BROWN BM'S SINCE. LABS DRAWN THIS MORNING FOR RECHECK OF K+ AND PENDING. TOLERATING TUBE FEEDS ORDERED. SKIN IS INTACT.
[2022-10-29] MEDS: Albumin Human 25 % 100 ML IV ×4 (06:25→19:58)
[2022-10-29] MEDS: Norepinephrine Bitartrate/D5W 8 MG/250 ML PLAST..BAG 39.8 MG IV (08:10)
[2022-10-29] MEDS: Vasopressin 20 UNIT/100 ML INFUS..BTL 6 UNIT IV (08:21)
[2022-10-29] MEDS: Enoxaparin Sodium 80 MG/0.8 ML SYRINGE SUBCUT ×2 (08:32→20:04)
[2022-10-29] MEDS: Sildenafil Citrate 20 MG TABLET PO ×3 (08:33→20:04)
[2022-10-29] MEDS: Chlorhexidine Gluc Oral Rinse 15 ML MOUTHWASH BUCCAL ×3 (08:33→19:59)
--- NOTE | 2022-10-29 10:02 | MHC.CM.PN ---
Pt remains intubated and fluid overloaded in ICU: no plans for weaning until pt can diurese. Broad SNF referrals placed as pt will need skilled care following his prolonged hospitalization. CM to follow for finalization of d/c needs.
[2022-10-29] MEDS: Furosemide 200 MG in 0.9 % Sodium Chloride 80 ML IVCONT (10:22)
--- NOTE | 2022-10-29 10:43 | MHC.CLN ---
F/U DISCUSSED AT ROUNDS WITH PT TOLERATING TF WITH LOW RESIDUALS PT RECEIVING TF: PROMOTE AT MAX GOAL RATE 50ML/HR AND 120ML FWF Q 4 HRS PROVIDES 1200KCALS (1469KCALS WITH SEDATION; 20KCALS/KG BASED ON CMW), 75G PROTEIN (1.0G/KG), 1727ML TOTAL WATER FROM FORMULA AND FLUSHES (23ML/KG) RECOMMEND D/C FREE WATER FLUSHES R/T ELEVATED SERUM NA CONTINUE TO MONITOR TOLERANCE, RESIDUALS AND LYTES
--- NOTE | 2022-10-29 11:38 | PM.PNNEP ---
Subjective Subjective Date of Service: 10/29/22 Interval history: seen and examined vented Physical Exam Vital Signs: Vital Signs: Last Vital Signs Temp 96.6 F L 10/29/22 10:00 Pulse 106 H 10/29/22 10:00 Resp 20 10/29/22 10:00 BP 107/70 10/29/22 10:00 Pulse Ox 91 L 10/29/22 10:00 O2 Del Method Mechanical Ventil ation 10/29/22 10:00 O2 Flow Rate 60 10/24/22 07:42 FiO2 70 10/29/22 11:22 Oxygen Flow Rate 6 10/18/22 18:31 BMI result Body Mass Index 32.4 HEENT: Head: Yes normocephalic and Yes atraumatic Neck: Neck: Yes supple Resp: Auscultation: diminished lung sounds Cardio: Heart sounds: S1 normal heart sound present and S2 normal heart sound present GI: Palpation (GI): Soft to palpation and nontender Extrem: Right upper extremity: edema Objective Data Labs 10/29/22 04:45 10/29/22 04:45 Labs: Laboratory Results - last 24 hr 10/25/22 10/28/22 10/28/22 04:21 12:14 19:54 WBC RBC Hgb Hct MCV MCH MCHC RDW Plt Count MPV Immature Gran % (Auto) Neut % (Auto) Lymph % (Auto) [place] % (Auto) Eos % (Auto) Baso % (Auto) Lymph # (Auto) [place] # (Auto) Eos # (Auto) Baso # (Auto) Abs Immat Gran (auto) Absolute Neuts (auto) Absolute Nucleated RBC Nucleated RBC % (auto) Smear Tech's Comments Smear Path Review SEE NOTE VBG pH VBG pCO2 VBG pO2 VBG HCO3 VBG O2 Saturation VBG Base Excess Sodium 125 L Potassium 6.1 H* Chloride 94 L Carbon Dioxide 22 Anion Gap 15 BUN 53 H Creatinine 0.85 Estim Creat Clear Calc 82.6 Estimated GFR > 60 Random Glucose 274 H Calcium 9.1 Phosphorus Magnesium Albumin Random Vancomycin 17.7 10/29/22 10/29/22 10/29/22 04:45 04:45 04:45 WBC 25.0 H RBC 3.93 L Hgb 8.8 L Hct 31.8 L MCV 80.9 MCH 22.4 L MCHC 27.7 L RDW 28.6 H Plt Count 219 MPV Not Reportable Immature Gran % (Auto) 4.7 H Neut % (Auto) 78.4 H Lymph % (Auto) 2.9 L [place] % (Auto) 13.1 H Eos % (Auto) 0.5 Baso % (Auto) 0.4 Lymph # (Auto) 0.7 L [place] # (Auto) 3.3 H Eos # (Auto) 0.1 Baso # (Auto) 0.1 Abs Immat Gran (auto) 1.17 H Absolute Neuts (auto) 19.6 H Absolute Nucleated RBC 6.270 H Nucleated RBC % (auto) 25.1 H Smear Tech's Comments VERIFIED Smear Path Review VBG pH VBG pCO2 VBG pO2 VBG HCO3 VBG O2 Saturation VBG Base Excess Sodium 125 L Potassium 5.8 H Chloride 94 L Carbon Dioxide 22 Anion Gap 15 BUN 54 H Creatinine 0.92 Cancelled Estim Creat Clear Calc 76.9 Cancelled Estimated GFR > 60 Cancelled Random Glucose 276 H Calcium 8.9 Phosphorus 2.6 L Magnesium 2.2 Albumin 2.8 L Random Vancomycin 10/29/22 04:50 WBC RBC Hgb Hct MCV MCH MCHC RDW Plt Count MPV Immature Gran % (Auto) Neut % (Auto) Lymph % (Auto) [place] % (Auto) Eos % (Auto) Baso % (Auto) Lymph # (Auto) [place] # (Auto) Eos # (Auto) Baso # (Auto) Abs Immat Gran (auto) Absolute Neuts (auto) Absolute Nucleated RBC Nucleated RBC % (auto) Smear Tech's Comments Smear Path Review VBG pH 7.33 VBG pCO2 47 VBG pO2 46 VBG HCO3 25 VBG O2 Saturation 71.0 VBG Base Excess -0.5 Sodium Potassium Chloride Carbon Dioxide Anion Gap BUN Creatinine Estim Creat Clear Calc Estimated GFR Random Glucose Calcium Phosphorus Magnesium Albumin Random Vancomycin Microbiology Microbiology Results: Microbiology 10/24/22 06:11 Blood - Venous Blood Culture - Final No growth after 5 days. 10/24/22 06:11 Blood - Venous Blood Culture - Final No growth after 5 days. 10/26/22 08:12 Sputum - Suctioned Gram Stain - Final 10/26/22 08:12 Sputum - Suctioned Sputum Culture - Final Methicillin Res Staph Aureus 10/18/22 19:16 Blood - Venous Blood Culture - Final No growth after 5 days. 10/18/22 19:05 Blood - Venous Blood Culture - Final No growth after 5 days. Procedures Date of Service Date of Service: 10/29/22 Assessment & Plan Assessment and plan (1) SAYDA (acute kidney injury): Status: Acute (2) Hyponatremia: Status: Acute (3) Heart failure with preserved ejection fraction: Status: Acute Plan Sna remains low SAYDA due to renal hypoperfusion resolved Krystin < 20 known HFpEF hypervolemic hyponatremia currently on vasopressin receptor antagonists REC furosemide gtt sodium zirconium for high potassium follow kidney function and electrolytes ? Time Spent With Patient Time: Total time managing care of this patient today ____ minutes. Progress Note: Quality Stroke Does the patient have a stroke diagnosis?: No
--- NOTE | 2022-10-29 12:07 | PM.CCPN ---
Subjective Subjective Date of Service: 10/29/22 Interval History: 72-year-old gentleman with underlying history of COPD, pulmonary hypertension, right heart failure initially admitted on 10/18/2022 with progressive dyspnea with hospital course significant for development of GI bleed status post EGD and sigmoidoscopy on 10/20/2022 demonstrating a bleeding oropharyngeal lesion; also with progressively worsening hypoxemia and hypercapnia requiring BiPAP support and transfer to intensive care unit and intubation on 10/24/2022 secondary to progressive right-sided heart failure with AFib requiring vasopressor support, further complicated by critical care encephalopathy and MRSA pneumonia. No events overnight. Critical Care Time (minutes): 60 Physical Exam Vital Signs: Vital Signs: Last Vital Signs Temp 96.3 F L 10/29/22 11:00 Pulse 110 H 10/29/22 11:00 Resp 20 10/29/22 11:00 BP 106/72 10/29/22 11:00 Pulse Ox 92 10/29/22 11:00 O2 Del Method Mechanical Ventil ation 10/29/22 11:00 O2 Flow Rate 60 10/24/22 07:42 FiO2 70 10/29/22 11:22 Oxygen Flow Rate 6 10/18/22 18:31 BMI result Body Mass Index 32.4 Const: General: no acute distress and other (Sedated on the vent) Nutritional Appearance: Edematous Eyes: Sclerae: sclerae normal EOM: EOMs intact bilaterally Neck: Neck: Yes no lymphadenopathy, Yes trachea midline and Yes supple Resp: Auscultation: crackles (Diffuse bilateral) Cardio: Rate: tachycardic Rhythm: regular rhythm Heart sounds: no gallops, no murmurs and no rubs GI: Palpation (GI): Soft to palpation and Other GI palpation findings present ( Nontender) Auscultation: normal bowel sounds Extrem: General: No clubbing, No cyanosis and Yes edema (2+ bilateral) Objective Data Labs 10/29/22 04:45 10/29/22 04:45 Labs: Laboratory Results - last 24 hr 10/25/22 10/28/22 10/28/22 04:21 12:14 19:54 WBC RBC Hgb Hct MCV MCH MCHC RDW Plt Count MPV Immature Gran % (Auto) Neut % (Auto) Lymph % (Auto) [place] % (Auto) Eos % (Auto) Baso % (Auto) Lymph # (Auto) [place] # (Auto) Eos # (Auto) Baso # (Auto) Abs Immat Gran (auto) Absolute Neuts (auto) Absolute Nucleated RBC Nucleated RBC % (auto) Smear Tech's Comments Smear Path Review SEE NOTE VBG pH VBG pCO2 VBG pO2 VBG HCO3 VBG O2 Saturation VBG Base Excess Sodium 125 L Potassium 6.1 H* Chloride 94 L Carbon Dioxide 22 Anion Gap 15 BUN 53 H Creatinine 0.85 Estim Creat Clear Calc 82.6 Estimated GFR > 60 Random Glucose 274 H Calcium 9.1 Phosphorus Magnesium Albumin Random Vancomycin 17.7 10/29/22 10/29/22 10/29/22 04:45 04:45 04:45 WBC 25.0 H RBC 3.93 L Hgb 8.8 L Hct 31.8 L MCV 80.9 MCH 22.4 L MCHC 27.7 L RDW 28.6 H Plt Count 219 MPV Not Reportable Immature Gran % (Auto) 4.7 H Neut % (Auto) 78.4 H Lymph % (Auto) 2.9 L [place] % (Auto) 13.1 H Eos % (Auto) 0.5 Baso % (Auto) 0.4 Lymph # (Auto) 0.7 L [place] # (Auto) 3.3 H Eos # (Auto) 0.1 Baso # (Auto) 0.1 Abs Immat Gran (auto) 1.17 H Absolute Neuts (auto) 19.6 H Absolute Nucleated RBC 6.270 H Nucleated RBC % (auto) 25.1 H Smear Tech's Comments VERIFIED Smear Path Review VBG pH VBG pCO2 VBG pO2 VBG HCO3 VBG O2 Saturation VBG Base Excess Sodium 125 L Potassium 5.8 H Chloride 94 L Carbon Dioxide 22 Anion Gap 15 BUN 54 H Creatinine 0.92 Cancelled Estim Creat Clear Calc 76.9 Cancelled Estimated GFR > 60 Cancelled Random Glucose 276 H Calcium 8.9 Phosphorus 2.6 L Magnesium 2.2 Albumin 2.8 L Random Vancomycin 10/29/22 04:50 WBC RBC Hgb Hct MCV MCH MCHC RDW Plt Count MPV Immature Gran % (Auto) Neut % (Auto) Lymph % (Auto) [place] % (Auto) Eos % (Auto) Baso % (Auto) Lymph # (Auto) [place] # (Auto) Eos # (Auto) Baso # (Auto) Abs Immat Gran (auto) Absolute Neuts (auto) Absolute Nucleated RBC Nucleated RBC % (auto) Smear Tech's Comments Smear Path Review VBG pH 7.33 VBG pCO2 47 VBG pO2 46 VBG HCO3 25 VBG O2 Saturation 71.0 VBG Base Excess -0.5 Sodium Potassium Chloride Carbon Dioxide Anion Gap BUN Creatinine Estim Creat Clear Calc Estimated GFR Random Glucose Calcium Phosphorus Magnesium Albumin Random Vancomycin Microbiology Microbiology Results: Microbiology 10/24/22 06:11 Blood - Venous Blood Culture - Final No growth after 5 days. 10/24/22 06:11 Blood - Venous Blood Culture - Final No growth after 5 days. 10/26/22 08:12 Sputum - Suctioned Gram Stain - Final 10/26/22 08:12 Sputum - Suctioned Sputum Culture - Final Methicillin Res Staph Aureus 10/18/22 19:16 Blood - Venous Blood Culture - Final No growth after 5 days. 10/18/22 19:05 Blood - Venous Blood Culture - Final No growth after 5 days. Progress Note: A&P Assessment and plan (1) Right heart failure: Status: Acute (2) Pulmonary hypertension: Status: Acute (3) MRSA pneumonia: Status: Acute (4) Acute and chronic respiratory failure with hypoxia: Status: Acute (5) Atrial flutter: Status: Acute (6) Morbid obesity: Status: Acute (7) COPD (chronic obstructive pulmonary disease): Status: Acute Plan Assessment: 72-year-old gentleman with has multiple medical comorbidities now admitted with acute on chronic hypoxic respiratory failure secondary to exacerbation underlying chronic right-sided congestive heart failure, pulmonary hypertension, COPD, and AFib Plan: Neuro: Critical care encephalopathy, poor arousal with sedation vacation continue with sedation vacation trials. Cardiac: Acute on chronic right-sided congestive heart failure with underlying AFib and pulmonary hypertension, improving slowly with diuresis. Started on sildenafil. Continue to titrate off pressor support as tolerated. Pulmonary: Acute on chronic hypoxic respiratory failure secondary to exacerbation of underlying congestive heart failure now requiring ventilatory support. Continue to titrate off as tolerated. Renal: No acute issues. Endo: No acute issues. GI: No acute issues. ID: MRSA pneumonia, now on vancomycin. Heme/Onc: No acute issues. Psych: No acute issues. Miscellaneous: No acute issues. Prophylaxis: Lovenox, famotidine Diet: Tube feeds Critical care time spent: 60 minute Quality Stroke Does the patient have a stroke diagnosis?: No VTE Prior VTE?: No VTE Risk Level:: Medical - moderate - high VTE Device Contraindication: N/A - Device Ordered VTE Drug Contraindication: Treatment Not Indicated
[2022-10-29 12:31] LABS: Vancomycin Random 19.1 mcg/mL (15-20)
--- NOTE | 2022-10-29 12:38 | HE.PHANOTE ---
RE: JOSE Patients level came back this afternoon 19.1. Will continue with 750 mg Q12H as RXinsight is predicted an AUC of 447 mg/L/hr. Patient is running higher than insight so I predicted AUC will be slightly higher. Holding dose x 1 to allow patient to clear as level is high. Will get random for tomorrow 10/30 @1200.
[2022-10-29] MEDS: propofoL 1,000 MG/100 ML VIAL 5.09 MG IVCONT (13:04)
[2022-10-29] MEDS: Norepinephrine Bitartrate/D5W 8 MG/250 ML PLAST..BAG 11.14 MG IV (17:53)
[2022-10-29] MEDS: propofoL 1,000 MG/100 ML VIAL 10.19 MG IVCONT (20:55)
[2022-10-30] VITALS (35 sets, daily range): BP systolic 87–117; BP diastolic 52–73; PULSE 88–118; RESP 18–28; TEMP 35.2–36.7; O2SAT 88–95; BMI 33.2
[2022-10-30] MEDS: vancomycin HCL 750 MG in 0.9 % Sodium Chloride 250 ML 265 MG IV (01:40)
[2022-10-30] MEDS: Albumin Human 25 % 100 ML IV (02:44)
[2022-10-30] MEDS: propofoL 1,000 MG/100 ML VIAL 10.19 MG IVCONT (04:17)
[2022-10-30 05:32] LABS: VBG HCO3 29 mmol/L (22-26); VBG pCO2 35 mmHg; VBG pH 7.51 (7.32-7.43); VBG pO2 45 mmHg
[2022-10-30 05:49] LABS: Venous Blood Gas Refer to POC result
[2022-10-30 05:50] LABS: Hematocrit 27.7 % (42.0-52.0); Hemoglobin 7.7 g/dl (14.0-18.0); Mean Corpuscular HGB Conc 27.8 g/dl (31.0-36.0); Mean Corpuscular Volume 79.1 fL (80.0-98.0); Platelet Count 173 X10*3/uL (160-400); Red Cell Distribution Width 29.2 % (11.0-16.0); White Blood Count 15.7 X10*3/uL (4.8-10.8)
[2022-10-30 05:52] LABS: NRBC Pct Auto 18.1 /100WBC (0.0-0.2); PLT ABN DIST 1
[2022-10-30 06:01] LABS: Alanine Aminotransferase 45 U/L (0-40); Alkaline Phosphatase 50 U/L (39-117); Anion Gap 15 (12-20); Aspartate Amino Transferase 35 U/L (5-37); Bilirubin Total 1.9 mg/dL (0.0-1.0); Blood Urea Nitrogen 57 mg/dL (9-16); Calcium 9.4 mg/dL (8.4-10.2); Carbon Dioxide 25 mmol/L (22-29); Chloride 99 mmol/L (96-108); Creatinine Clr Calc Pharmacy 78.6; Estimated Glomerular Filt Rate > 60; Glucose Random 279 mg/dL (60-115); Magnesium 2.4 mg/dL (1.6-2.6); Phosphorus 1.6 mg/dL (2.7-4.5); Potassium 5.7 mmol/L (3.3-5.1); Sodium 133 mmol/L (135-145)
[2022-10-30 06:12] LABS: Band Neutrophils Percent 8 % (3-5); Lymphocytes Absolute Manual 1.1 X10*3/uL (1.2-4.9); Lymphocytes Percent Manual 7 % (20-40); Metamyelocytes Absolute 0.3 X10*3/uL; Metamyelocytes Percent 2 %; Monocytes Absolute Manual 1.3 X10*3/uL (0.1-1.2); Monocytes Percent Manual 8 % (2-11); Myelocytes Absolute 0.2 X10*/uL; Myelocytes Percent 1 %; Neutrophils Absolute Manual 12.9 X10*3/uL (2.0-8.3); Neutrophils Percent Manual 74 % (45-73); Nucleated Red Blood Cells 30 /100WBC (0-0); RBC Morphology NOTED
[2022-10-30 06:14] LABS: Macrocytosis 1+ (5-14) /OIF; Ovalocytes 1+ (5-14) /OIF; Polychromasia 1+ (0-2) /OIF; Toxic Vacuolation PRESENT
[2022-10-30 06:15] LABS: Basophilic Stippling 1+ (0-2) /OIF; Hypochromasia 1+ (5-14) /OIF; Schistocytes 1+ (0-2) /OIF; Target Cells 1+ (5-14) /OIF
[2022-10-30 06:16] LABS: Large Platelet PRESENT; Platelet Estimate NORMAL (NORMAL); Platelet Morphology Comment NOTED; Stomatocytes 1+ (5-14) /OIF
[2022-10-30] MEDS: Chlorhexidine Gluc Oral Rinse 15 ML MOUTHWASH BUCCAL ×3 (07:31→21:04)
[2022-10-30] MEDS: Enoxaparin Sodium 80 MG/0.8 ML SYRINGE SUBCUT ×2 (07:32→21:04)
[2022-10-30] MEDS: Sodium,Potassium Phosphates POWD.PACK 2 PACKET OG-TUBE (07:32)
[2022-10-30] MEDS: Famotidine/PF 20 MG/2 ML VIAL IVPUSH (07:32)
[2022-10-30] MEDS: Sildenafil Citrate 20 MG TABLET PO ×3 (07:32→21:04)
--- NOTE | 2022-10-30 08:52 | P.PNCC_ITS ---
Subjective Subjective Date of Service: 10/30/22 Interval History: 72-year-old gentleman with underlying history of COPD, pulmonary hypertension, right heart failure initially admitted on 10/18/2022 with progressive dyspnea with hospital course significant for development of GI bleed status post EGD and sigmoidoscopy on 10/20/2022 demonstrating a bleeding oropharyngeal lesion; also with progressively worsening hypoxemia and hypercapnia requiring BiPAP support and transfer to intensive care unit and intubation on 10/24/2022 secondary to progressive right-sided heart failure with AFib requiring vasopressor support, further complicated by critical care encephalopathy and MRSA pneumonia. No events overnight. Pressor support and FiO2 requirements are improving. Critical Care Time (minutes): 45 Physical Exam Vital Signs: Vital Signs: Last Vital Signs Temp 96.8 F 10/30/22 08:00 Pulse 113 H 10/30/22 08:00 Resp 21 H 10/30/22 08:00 BP 109/72 10/30/22 08:00 Pulse Ox 92 10/30/22 08:00 O2 Del Method Mechanical Ventil ation 10/30/22 08:00 O2 Flow Rate 60 10/24/22 07:42 FiO2 60 10/30/22 08:00 Oxygen Flow Rate 6 10/18/22 18:31 BMI result Body Mass Index 33.2 Const: General: no acute distress and other ( Sedated on the vent) Nutri tional Appearance: Edematous Eyes: Sclerae: sclerae normal EOM: EOMs intact bilaterally Neck: Neck: Yes no lymphadenopathy, Yes trachea midline and Yes supple Resp: Auscultation: crackles ( diffuse bilateral) Cardio: Rate: tachycardic Rhythm: abnormal rhythm irregularly irregular Heart sounds: no gallops, no murmurs and no rubs GI: Palpation (GI): Soft to palpation and Other GI palpation findings present ( Nontender) Auscultation: normal bowel sounds Extrem: General: No clubbing, No cyanosis and Yes edema ( 2+ bilateral) Objective Data Labs 10/30/22 05:25 10/30/22 05:25 Labs: Laboratory Results - last 24 hr 10/25/22 10/29/22 10/30/22 04:21 12:12 05:22 WBC RBC Hgb Hct MCV MCH MCHC RDW Plt Count MPV Immature Gran % (Auto) Neut % (Auto) Lymph % (Auto) [place] % (Auto) Eos % (Auto) Baso % (Auto) Lymph # (Auto) [place] # (Auto) Eos # (Auto) Baso # (Auto) Abs Immat Gran (auto) Absolute Neuts (auto) Absolute Nucleated RBC Nucleated RBC % (auto) Neutrophils % (Manual) Band Neutrophils % Lymphocytes % (Manual) Monocytes % (Manual) Metamyelocytes % Myelocytes % Abs Neuts (Manual) Lymphocytes # (Manual) Monocytes # (Manual) Metamyelocytes # Myelocytes # Nucleated RBCs Toxic Vacuolation Platelet Estimate Large Platelets Plt Morphology Comment RBC Morphology Polychromasia Hypochromasia Basophilic Stippling Macrocytosis Target Cells Ovalocytes Stomatocytes Schistocytes Smear Path Review SEE NOTE VBG pH 7.51 H VBG pCO2 35 VBG pO2 45 VBG HCO3 29 H VBG O2 Saturation 76.0 VBG Base Excess 6.0 Sodium Potassium Chloride Carbon Dioxide Anion Gap BUN Creatinine Estim Creat Clear Calc Estimated GFR Random Glucose Calcium Phosphorus Magnesium Total Bilirubin AST ALT Alkaline Phosphatase Total Protein Albumin Random Vancomycin 19.1 10/30/22 10/30/22 05:25 05:25 WBC 15.7 H RBC 3.50 L Hgb 7.7 L Hct 27.7 L MCV 79.1 L MCH 22.0 L MCHC 27.8 L RDW 29.2 H Plt Count 173 MPV Not Reportable Immature Gran % (Auto) Cancelled Neut % (Auto) Cancelled Lymph % (Auto) Cancelled [place] % (Auto) Cancelled Eos % (Auto) Cancelled Baso % (Auto) Cancelled Lymph # (Auto) Cancelled [place] # (Auto) Cancelled Eos # (Auto) Cancelled Baso # (Auto) Cancelled Abs Immat Gran (auto) Cancelled Absolute Neuts (auto) Cancelled Absolute Nucleated RBC 2.840 H Nucleated RBC % (auto) 18.1 H Neutrophils % (Manual) 74 H Band Neutrophils % 8 H Lymphocytes % (Manual) 7 L Monocytes % (Manual) 8 Metamyelocytes % 2 Myelocytes % 1 Abs Neuts (Manual) 12.9 H Lymphocytes # (Manual) 1.1 L Monocytes # (Manual) 1.3 H Metamyelocytes # 0.3 Myelocytes # 0.2 Nucleated RBCs 30 H Toxic Vacuolation PRESENT Platelet Estimate NORMAL Large Platelets PRESENT Plt Morphology Comment NOTED RBC Morphology NOTED Polychromasia 1+ (0-2) Hypochromasia 1+ (5-14) Basophilic Stippling 1+ (0-2) Macrocytosis 1+ (5-14) Target Cells 1+ (5-14) Ovalocytes 1+ (5-14) Stomatocytes 1+ (5-14) Schistocytes 1+ (0-2) Smear Path Review VBG pH VBG pCO2 VBG pO2 VBG HCO3 VBG O2 Saturation VBG Base Excess Sodium 133 L Potassium 5.7 H Chloride 99 Carbon Dioxide 25 Anion Gap 15 BUN 57 H Creatinine 0.91 Estim Creat Clear Calc 78.6 Estimated GFR > 60 Random Glucose 279 H Calcium 9.4 Phosphorus 1.6 L Magnesium 2.4 Total Bilirubin 1.9 H AST 35 ALT 45 H Alkaline Phosphatase 50 Total Protein 6.0 L Albumin 4.0 Random Vancomycin Microbiology Microbiology Results: Microbiology 10/24/22 06:11 Blood - Venous Blood Culture - Final No growth after 5 days. 10/24/22 06:11 Blood - Venous Blood Culture - Final No growth after 5 days. 10/26/22 08:12 Sputum - Suctioned Gram Stain - Final 10/26/22 08:12 Sputum - Suctioned Sputum Culture - Final Methicillin Res Staph Aureus 10/18/22 19:16 Blood - Venous Blood Culture - Final No growth after 5 days. 10/18/22 19:05 Blood - Venous Blood Culture - Final No growth after 5 days. Progress Note: A&P Assessment and plan (1) MRSA pneumonia: Status: Acute (2) Pulmonary hypertension: Status: Acute (3) Right heart failure: Status: Acute (4) Pneumonia: Status: Acute (5) Acute and chronic respiratory failure with hypoxia: Status: Acute Plan Assessment: 72-year-old gentleman with has multiple medical comorbidities now admitted with acute on chronic hypoxic respiratory failure secondary to exacerbation underlying chronic right-sided congestive heart failure, pulmonary hypertension, COPD, and AFib Plan: Neuro: Critical care encephalopathy, poor arousal with sedation vacation continue with sedation vacation trials. Cardiac: Acute on chronic right-sided congestive heart failure with underlying AFib and pulmonary hypertension, improving slowly with diuresis. Started on sildenafil. Continue to titrate off pressor support as tolerated. improvement slowly. Will add digoxin. Pulmonary: Acute on chronic hypoxic respiratory failure secondary to exa cerbation of underlying congestive heart failure now requiring ventilatory support. Continue to titrate off as tolerated. Renal: No acute issues. Endo: No acute issues. GI: No acute issues. ID: MRSA pneumonia, now on vancomycin. Heme/Onc: No acute issues. Psych: No acute issues. Miscellaneous: No acute issues. Prophylaxis: Lovenox, famotidine Diet: Tube feeds Critical care time spent: 45 minute Quality Stroke Does the patient have a stroke diagnosis?: No VTE Prior VTE?: No VTE Risk Level:: Medical - moderate - high VTE Device Contraindication: N/A - Device Ordered VTE Drug Contraindication: Treatment Not Indicated
[2022-10-30] MEDS: Digoxin 0.5 MG/2 ML AMPUL 0.25 MG IVPUSH (09:12)
[2022-10-30] MEDS: Furosemide 200 MG in 0.9 % Sodium Chloride 80 ML IVCONT (10:02)
[2022-10-30] MEDS: propofoL 1,000 MG/100 ML VIAL 15.28 MG IVCONT ×3 (10:31→21:03)
--- NOTE | 2022-10-30 11:18 | PM.PNNEP ---
Subjective Subjective Date of Service: 10/30/22 Interval history: seen and examined vented Physical Exam Vital Signs: Vital Signs: Last Vital Signs Temp 96.8 F 10/30/22 11:00 Pulse 116 H 10/30/22 11:00 Resp 28 H 10/30/22 11:00 BP 98/65 10/30/22 11:00 Pulse Ox 92 10/30/22 11:00 O2 Del Method Mechanical Ventil ation 10/30/22 11:00 O2 Flow Rate 60 10/24/22 07:42 FiO2 70 10/30/22 11:00 Oxygen Flow Rate 6 10/18/22 18:31 BMI result Body Mass Index 33.2 HEENT: Head: Yes normocephalic and Yes atraumatic Neck: Neck: Yes supple Resp: Auscultation: diminished lung sounds Cardio: Heart sounds: S1 normal heart sound present and S2 normal heart sound present GI: Palpation (GI): Soft to palpation and nontender Extrem: Right upper extremity: edema Objective Data Labs 10/30/22 05:25 10/30/22 05:25 Labs: Laboratory Results - last 24 hr 10/29/22 10/30/22 10/30/22 12:12 05:22 05:25 WBC RBC Hgb Hct MCV MCH MCHC RDW Plt Count MPV Immature Gran % (Auto) Neut % (Auto) Lymph % (Auto) [place] % (Auto) Eos % (Auto) Baso % (Auto) Lymph # (Auto) [place] # (Auto) Eos # (Auto) Baso # (Auto) Abs Immat Gran (auto) Absolute Neuts (auto) Absolute Nucleated RBC Nucleated RBC % (auto) Neutrophils % (Manual) Band Neutrophils % Lymphocytes % (Manual) Monocytes % (Manual) Metamyelocytes % Myelocytes % Abs Neuts (Manual) Lymphocytes # (Manual) Monocytes # (Manual) Metamyelocytes # Myelocytes # Nucleated RBCs Toxic Vacuolation Platelet Estimate Large Platelets Plt Morphology Comment RBC Morphology Polychromasia Hypochromasia Basophilic Stippling Macrocytosis Target Cells Ovalocytes Stomatocytes Schistocytes VBG pH 7.51 H VBG pCO2 35 VBG pO2 45 VBG HCO3 29 H VBG O2 Saturation 76.0 VBG Base Excess 6.0 Sodium 133 L Potassium 5.7 H Chloride 99 Carbon Dioxide 25 Anion Gap 15 BUN 57 H Creatinine 0.91 Estim Creat Clear Calc 78.6 Estimated GFR > 60 Random Glucose 279 H Calcium 9.4 Phosphorus 1.6 L Magnesium 2.4 Total Bilirubin 1.9 H AST 35 ALT 45 H Alkaline Phosphatase 50 Total Protein 6.0 L Albumin 4.0 Random Vancomycin 19.1 10/30/22 05:25 WBC 15.7 H RBC 3.50 L Hgb 7.7 L Hct 27.7 L MCV 79.1 L MCH 22.0 L MCHC 27.8 L RDW 29.2 H Plt Count 173 MPV Not Reportable Immature Gran % (Auto) Cancelled Neut % (Auto) Cancelled Lymph % (Auto) Cancelled [place] % (Auto) Cancelled Eos % (Auto) Cancelled Baso % (Auto) Cancelled Lymph # (Auto) Cancelled [place] # (Auto) Cancelled Eos # (Auto) Cancelled Baso # (Auto) Cancelled Abs Immat Gran (auto) Cancelled Absolute Neuts (auto) Cancelled Absolute Nucleated RBC 2.840 H Nucleated RBC % (auto) 18.1 H Neutrophils % (Manual) 74 H Band Neutrophils % 8 H Lymphocytes % (Manual) 7 L Monocytes % (Manual) 8 Metamyelocytes % 2 Myelocytes % 1 Abs Neuts (Manual) 12.9 H Lymphocytes # (Manual) 1.1 L Monocytes # (Manual) 1.3 H Metamyelocytes # 0.3 Myelocytes # 0.2 Nucleated RBCs 30 H Toxic Vacuolation PRESENT Platelet Estimate NORMAL Large Platelets PRESENT Plt Morphology Comment NOTED RBC Morphology NOTED Polychromasia 1+ (0-2) Hypochromasia 1+ (5-14) Basophilic Stippling 1+ (0-2) Macrocytosis 1+ (5-14) Target Cells 1+ (5-14) Ovalocytes 1+ (5-14) Stomatocytes 1+ (5-14) Schistocytes 1+ (0-2) VBG pH VBG pCO2 VBG pO2 VBG HCO3 VBG O2 Saturation VBG Base Excess Sodium Potassium Chloride Carbon Dioxide Anion Gap BUN Creatinine Estim Creat Clear Calc Estimated GFR Random Glucose Calcium Phosphorus Magnesium Total Bilirubin AST ALT Alkaline Phosphatase Total Protein Albumin Random Vancomycin Microbiology Microbiology Results: Microbiology 10/24/22 06:11 Blood - Venous Blood Culture - Final No growth after 5 days. 10/24/22 06:11 Blood - Venous Blood Culture - Final No growth after 5 days. 10/26/22 08:12 Sputum - Suctioned Gram Stain - Final 10/26/22 08:12 Sputum - Suctioned Sputum Culture - Final Methicillin Res Staph Aureus 10/18/22 19:16 Blood - Venous Blood Culture - Final No growth after 5 days. 10/18/22 19:05 Blood - Venous Blood Culture - Final No growth after 5 days. Procedures Date of Service Date of Service: 10/30/22 Assessment & Plan Assessment and plan (1) SAYDA (acute kidney injury): Status: Acute (2) Hyponatremia: Status: Acute (3) Heart failure with preserved ejection fraction: Status: Acute Plan Sna improving SAYDA due to renal hypoperfusion resolved Krystin < 20 known HFpEF hypervolemic hyponatremia REC c/w furosemide gtt sodium zirconium for high potassium follow kidney function and electrolytes ? Time Spent With Patient Time: Total time managing care of this patient today ____ minutes. Progress Note: Quality Stroke Does the patient have a stroke diagnosis?: No
[2022-10-30 12:34] LABS: Vancomycin Random 19.4 mcg/mL (15-20)
--- NOTE | 2022-10-30 12:48 | HE.PHANOTE ---
Vancomycin Dosing Level is high at 19 today. Will transition to vancomycin 1500 mg Q24H starting 10/31 @ 0800. Level will be drawn prior to dose to confirm patient can received 1500 mg Q24H or 1250 mg Q24H. Rex FarahD
--- NOTE | 2022-10-30 14:02 | MHC.CM.PN ---
Pt continues on ventilatory support: slowly making clinical gains. SNF referrals extended to facilities that are hopefully contracted w/pt's payor. CM to follow for d/c planning needs
[2022-10-30 14:43] LABS: Anion Gap 15 (12-20); Blood Urea Nitrogen 62 mg/dL (9-16); Calcium 9.3 mg/dL (8.4-10.2); Carbon Dioxide 25 mmol/L (22-29); Chloride 101 mmol/L (96-108); Creatinine Clr Calc Pharmacy 70.1; Estimated Glomerular Filt Rate > 60; Glucose Random 299 mg/dL (60-115); Potassium 6.5 mmol/L (3.3-5.1); Sodium 134 mmol/L (135-145)
[2022-10-30] MEDS: Lactulose 20 GM/30 ML SOLUTION 30 GM PO (15:23)
--- NOTE | 2022-10-30 16:40 | PC.NURSE ---
Addendum entered by Jacki Ashton RN 10/30/22 18:00: POC 279 - notified and sliding scale to be ordered. 02 maintaining 86% on 80% Fio2 - Fio2 increased to 90% and currently sating 88% w/ good pleth - MD aware. Pt had two loose moderate size liquid bowel movements post Lactulose - rectal tube in place and patient. Original Note: Assumed care at 0700 - patient intubated and sedated. Aflutter w/ BBB, HR maintaining 110-120s - Digoxin 0.25 IVP ordered and administered. Continued on Rhythmol & Revatio. Urine output decreased throughout shift - MD notified - lasix gtt d/c'd. CXR ordered - see report. Repeat labs drawn - 1400 K 6.5 - Lactulose 30g ordered and administered. Continued on levo gtt per EMAR , MAP maintaining >65. VBGs 7.51/35/45/29 - Vent settings adjusted by MD from AC rate 15 TV 650 Peep 6 to AC rate 14 TV 450 Peep 5. O2 sat down to 86%- Fio2 requirements increasing from 60% to 80%. RR maintaining 26-28 - MD aware - goal sat >88% per MD. Plan for repeat labs at 1999 per MD.
[2022-10-30 18:30] LABS: Glucose, Whole Blood 279 mg/dL (60-115)
[2022-10-30] MEDS: Insulin Lispro 100 UNIT/ML 3 ML VIAL SUBCUT (18:39)
[2022-10-30 19:38] LABS: Complement Total CH50 21 U/mL (31-60)
[2022-10-30 20:29] LABS: Anion Gap 17 (12-20); Blood Urea Nitrogen 67 mg/dL (9-16); Calcium 9.3 mg/dL (8.4-10.2); Carbon Dioxide 23 mmol/L (22-29); Chloride 102 mmol/L (96-108); Creatinine Clr Calc Pharmacy 66.9; Estimated Glomerular Filt Rate > 60; Glucose Random 265 mg/dL (60-115); Potassium 6.7 mmol/L (3.3-5.1); Sodium 135 mmol/L (135-145)
[2022-10-30] MEDS: Norepinephrine Bitartrate/D5W 8 MG/250 ML PLAST..BAG 7.96 MG IV (21:04)
[2022-10-30] MEDS: Piperacillin Sodium/Tazobactam 4.5 GM in 0.9 % Sodium Chloride 100 ML IV (21:04)
[2022-10-30 22:29] LABS: Glucose, Whole Blood 248 mg/dL (60-115)
[2022-10-30 22:39] LABS: DRVVT Confirmation Negative (Negative); Hexagonal Phase Neutralization Weak Positive (Negative)
[2022-10-30] MEDS: Dextrose 50 % 25 GM/50 ML SYRINGE IVPUSH (22:51)
[2022-10-30] MEDS: Insulin Regular, Human 100 UNIT/ML 3 ML VIAL 10 UNIT IVPUSH (22:52)
[2022-10-30 23:18] LABS: PTT (LAC) Screen 51 sec (<=40); Thrombin Clotting Time 16 sec (13-19)
[2022-10-31] VITALS (36 sets, daily range): BP systolic 76–120; BP diastolic 50–78; PULSE 106–124; RESP 20–31; TEMP 34.7–37.1; O2SAT 86–95; BMI 32.1
[2022-10-31 00:01] LABS: Glucose, Whole Blood 296 mg/dL (60-115)
[2022-10-31] MEDS: Insulin Lispro 100 UNIT/ML 3 ML VIAL SUBCUT ×5 (00:06→23:59)
[2022-10-31] MEDS: propofoL 1,000 MG/100 ML VIAL 10.19 MG IVCONT ×3 (03:53→17:04)
[2022-10-31 05:16] LABS: VBG Base Excess 3.7 mmol/L; VBG HCO3 30 mmol/L (22-26); VBG pCO2 56 mmHg; VBG pH 7.34 (7.32-7.43); VBG pO2 53 mmHg
[2022-10-31 05:17] LABS: Venous Blood Gas Refer to POC result
[2022-10-31 05:22] LABS: Hematocrit 31.4 % (42.0-52.0); Hemoglobin 8.4 g/dl (14.0-18.0); Mean Corpuscular HGB Conc 26.8 g/dl (31.0-36.0); Mean Corpuscular Volume 82.2 fL (80.0-98.0); PLT CLUMP 1; Red Blood Count 3.82 X10*6/uL (4.60-5.80); Red Cell Distribution Width 29.4 % (11.0-16.0)
[2022-10-31 05:24] LABS: White Blood Count 18.7 X10*3/uL (4.8-10.8)
[2022-10-31 05:39] LABS: Vancomycin Random 14.1 mcg/mL (15-20)
[2022-10-31 05:42] LABS: Anion Gap 11 (12-20); Blood Urea Nitrogen 65 mg/dL (9-16); Calcium 9.9 mg/dL (8.4-10.2); Carbon Dioxide 28 mmol/L (22-29); Chloride 103 mmol/L (96-108); Creatinine Clr Calc Pharmacy 76.6; Estimated Glomerular Filt Rate > 60; Glucose Random 215 mg/dL (60-115); Magnesium 2.7 mg/dL (1.6-2.6); Phosphorus 3.5 mg/dL (2.7-4.5); Potassium 6.1 mmol/L (3.3-5.1); Sodium 136 mmol/L (135-145)
[2022-10-31 05:50] LABS: Band Neutrophils Percent 5 % (3-5); Eosinophils Absolute Manual 0.2 X10*3/uL (0.0-0.4); Eosinophils Percent Manual 1 % (0-4); Large Platelet PRESENT; Macrocytosis 1+ (5-14) /OIF; Microcytosis 1+ (5-14) /OIF; Monocytes Absolute Manual 0.7 X10*3/uL (0.1-1.2); Monocytes Percent Manual 4 % (2-11); Myelocytes Absolute 0.4 X10*/uL; Myelocytes Percent 2 %; Neutrophils Absolute Manual 17.4 X10*3/uL (2.0-8.3); Neutrophils Percent Manual 88 % (45-73); Nucleated Red Blood Cells 26 /100WBC (0-0); Platelet Estimate NORMAL (NORMAL); Platelet Morphology Comment NORMAL; Polychromasia 2+ (3-5) /OIF; RBC Morphology NOTED; Schistocytes 1+ (0-2) /OIF
[2022-10-31 05:51] LABS: Basophilic Stippling 1+ (0-2) /OIF; Howell Jolly Bodies PRESENT; Smudge Cells PRESENT
[2022-10-31 05:52] LABS: Glucose, Whole Blood 217 mg/dL (60-115)
--- NOTE | 2022-10-31 06:15 | HE.PHANOTE ---
Vancomycin Dosing Level 14.1 after no dose yesterday afternoon. Will start patient on 1500 mg Q24H. Next level in 24 hours 11/01 @ 0600 to confirm safety and effifacy of new regimen. Marilyn Wilkinson, RexD
--- NOTE | 2022-10-31 06:32 | PC.NURSE ---
AM K=6.1 ...DECREASED FROM 6.7 ON 3-11 SHIFT...URINE OUTPUT IMPROVED OVERNIGHT WITH TITRATION OF LEVOPHED UPWARD..ICU SOLE LEVELING MACHINE OPERATOR AWARE OF AM K LEVEL..HEEL TURNER TO REVIEW FURTHER TREATMENT
[2022-10-31 08:40] LABS: Platelet Count 236 X10*3/uL (160-400)
[2022-10-31] MEDS: vancomycin HCL 1,500 MG in 0.9 % Sodium Chloride 500 ML 333.33 MG IV (08:41)
[2022-10-31] MEDS: Piperacillin Sodium/Tazobactam 4.5 GM in 0.9 % Sodium Chloride 100 ML IV ×2 (08:44→21:14)
[2022-10-31] MEDS: Chlorhexidine Gluc Oral Rinse 15 ML MOUTHWASH BUCCAL ×3 (08:55→21:14)
[2022-10-31] MEDS: Digoxin 0.5 MG/2 ML AMPUL 0.25 MG IVPUSH (08:55)
[2022-10-31] MEDS: Famotidine/PF 20 MG/2 ML VIAL IVPUSH (08:55)
[2022-10-31] MEDS: Sildenafil Citrate 20 MG TABLET PO ×3 (08:56→21:14)
--- NOTE | 2022-10-31 09:45 | P.PNCC_ITS ---
Subjective Subjective Date of Service: 10/31/22 Interval History: 72-year-old gentleman with underlying history of COPD, pulmonary hypertension, right heart failure initially admitted on 10/18/2022 with progressive dyspnea with hospital course significant for development of GI bleed status post EGD and sigmoidoscopy on 10/20/2022 demonstrating a bleeding oropharyngeal lesion; also with progressively worsening hypoxemia and hypercapnia requiring BiPAP support and transfer to intensive care unit and intubation on 10/24/2022 secondary to progressive right-sided heart failure with AFib requiring vasopressor support, further complicated by critical care encephalopathy and MRSA pneumonia. Over the last 24 hours with worsening hypoxemia now requiring FiO2 of 100%. Critical Care Time (minutes): 45 Physical Exam Vital Signs: Vital Signs: Last Vital Signs Temp 97.0 F 10/31/22 09:00 Pulse 123 H 10/31/22 09:00 Resp 26 H 10/31/22 09:00 BP 103/66 10/31/22 09:00 Pulse Ox 94 10/31/22 09:00 O2 Del Method Mechanical Ventil ation 10/31/22 09:00 O2 Flow Rate 60 10/24/22 07:42 FiO2 100 10/31/22 09:00 Oxygen Flow Rate 6 10/18/22 18:31 BMI result Body Mass Index 32.1 Const: General: no acute distress and other ( Sedated on the vent, poor arousal with sedation vacation) HEENT: Head: Yes atraumatic Eyes: General: appearance normal, both eyes and all related structures Sclerae: sclerae normal Neck: Neck: Yes supple Lymphatic: no lymphadenopathy noted Resp: Auscultation: crackles ( mild bilateral) Cardio: Rate: tachycardic Rhythm: regular rhythm Heart sounds: no gallops, no murmurs and no rubs Skin: General skin exam: other ( warm) Extrem: General: No clubbing, No cyanosis and Yes edema (1+ bilateral) Objective Data Labs 10/31/22 05:06 10/31/22 05:06 Labs: Laboratory Results - last 24 hr 10/25/22 10/25/22 10/25/22 06:40 09:45 09:45 WBC RBC Hgb Hct MCV MCH MCHC RDW Plt Count MPV Immature Gran % (Auto) Neut % (Auto) Lymph % (Auto) [place] % (Auto) Eos % (Auto) Baso % (Auto) Lymph # (Auto) [place] # (Auto) Eos # (Auto) Baso # (Auto) Abs Immat Gran (auto) Absolute Neuts (auto) Absolute Nucleated RBC Nucleated RBC % (auto) Neutrophils % (Manual) Band Neutrophils % Monocytes % (Manual) Eosinophils % (Manual) Myelocytes % Abs Neuts (Manual) Monocytes # (Manual) Eosinophils # (Manual) Myelocytes # Nucleated RBCs Smudge Cells Platelet Estimate Large Platelets Plt Morphology Comment RBC Morphology Polychromasia Basophilic Stippling Microcytosis Macrocytosis [place] Bodies Schistocytes LA PTT Screen 51 H LA Thrombin Time 16 dRVV Screen 49 H dRVVT Confirm Interp Negative dRVVT Mixing Study TNP dRVVT Mix Interpret TNP Hexagon Phase Neutraliz Weak Positive A Lupus Anticoag Interp see note A VBG pH VBG pCO2 VBG pO2 VBG HCO3 VBG O2 Saturation VBG Base Excess Sodium Potassium Chloride Carbon Dioxide Anion Gap BUN Creatinine Estim Creat Clear Calc Estimated GFR POC Glucose Random Glucose Calcium Phosphorus Magnesium Albumin Random Vancomycin Tot Complement (CH50) 21 L A.phagocytophil DNA PCR TNP Babesia microti DNA PCR TNP Borrelia sp DNA (PCR) TNP Borrelia miyamotoi (PCR) TNP E.chaffeensis DNA (PCR) TNP 10/30/22 10/30/22 10/30/22 12:16 14:11 17:52 WBC RBC Hgb Hct MCV MCH MCHC RDW Plt Count MPV Immature Gran % (Auto) Neut % (Auto) Lymph % (Auto) [place] % (Auto) Eos % (Auto) Baso % (Auto) Lymph # (Auto) [place] # (Auto) Eos # (Auto) Baso # (Auto) Abs Immat Gran (auto) Absolute Neuts (auto) Absolute Nucleated RBC Nucleated RBC % (auto) Neutrophils % (Manual) Band Neutrophils % Monocytes % (Manual) Eosinophils % (Manual) Myelocytes % Abs Neuts (Manual) Monocytes # (Manual) Eosinophils # (Manual) Myelocytes # Nucleated RBCs Smudge Cells Platelet Estimate Large Platelets Plt Morphology Comment RBC Morphology Polychromasia Basophilic Stippling Microcytosis Macrocytosis [place] Bodies Schistocytes LA PTT Screen LA Thrombin Time dRVV Screen dRVVT Confirm Interp dRVVT Mixing Study dRVVT Mix Interpret Hexagon Phase Neutraliz Lupus Anticoag Interp VBG pH VBG pCO2 VBG pO2 VBG HCO3 VBG O2 Saturation VBG Base Excess Sodium 134 L Potassium 6.5 H* Chloride 101 Carbon Dioxide 25 Anion Gap 15 BUN 62 H Creatinine 1.02 Estim Creat Clear Calc 70.1 Estimated GFR > 60 POC Glucose 279 H Random Glucose 299 H Calcium 9.3 Phosphorus Magnesium Albumin Random Vancomycin 19.4 Tot Complement (CH50) A.phagocytophil DNA PCR Babesia microti DNA PCR Borrelia sp DNA (PCR) Borrelia miyamotoi (PCR) E.chaffeensis DNA (PCR) 10/30/22 10/30/22 10/30/22 19:59 22:23 23:56 WBC RBC Hgb Hct MCV MCH MCHC RDW Plt Count MPV Immature Gran % (Auto) Neut % (Auto) Lymph % (Auto) [place] % (Auto) Eos % (Auto) Baso % (Auto) Lymph # (Auto) [place] # (Auto) Eos # (Auto) Baso # (Auto) Abs Immat Gran (auto) Absolute Neuts (auto) Absolute Nucleated RBC Nucleated RBC % (auto) Neutrophils % (Manual) Band Neutrophils % Monocytes % (Manual) Eosinophils % (Manual) Myelocytes % Abs Neuts (Manual) Monocytes # (Manual) Eosinophils # (Manual) Myelocytes # Nucleated RBCs Smudge Cells Platelet Estimate Large Platelets Plt Morphology Comment RBC Morphology Polychromasia Basophilic Stippling Microcytosis Macrocytosis [place] Bodies Schistocytes LA PTT Screen LA Thrombin Time dRVV Screen dRVVT Confirm Interp dRVVT Mixing Study dRVVT Mix Interpret Hexagon Phase Neutraliz Lupus Anticoag Interp VBG pH VBG pCO2 VBG pO2 VBG HCO3 VBG O2 Saturation VBG Base Excess Sodium 135 Potassium 6.7 H* Chloride 102 Carbon Dioxide 23 Anion Gap 17 BUN 67 H Creatinine 1.07 Estim Creat Clear Calc 66.9 Estimated GFR > 60 POC Glucose 248 H 296 H Random Glucose 265 H Calcium 9.3 Phosphorus Magnesium Albumin Random Vancomycin Tot Complement (CH50) A.phagocytophil DNA PCR Babesia microti DNA PCR Borrelia sp DNA (PCR) Borrelia miyamotoi (PCR) E.chaffeensis DNA (PCR) 10/31/22 10/31/22 10/31/22 05:06 05:06 05:06 WBC 18.7 H RBC 3.82 L Hgb 8.4 L Hct 31.4 L MCV 82.2 MCH 22.0 L MCHC 26.8 L RDW 29.4 H Plt Count 236 D MPV TNP Immature Gran % (Auto) Cancelled Neut % (Auto) Cancelled Lymph % (Auto) Cancelled [place] % (Auto) Cancelled Eos % (Auto) Cancelled Baso % (Auto) Cancelled Lymph # (Auto) Cancelled [place] # (Auto) Cancelled Eos # (Auto) Cancelled Baso # (Auto) Cancelled Abs Immat Gran (auto) Cancelled Absolute Neuts (auto) Cancelled Absolute Nucleated RBC 4.290 H Nucleated RBC % (auto) 23.0 H Neutrophils % (Manual) 88 H Band Neutrophils % 5 Monocytes % (Manual) 4 Eosinophils % (Manual) 1 Myelocytes % 2 Abs Neuts (Manual) 17.4 H Monocytes # (Manual) 0.7 Eosinophils # (Manual) 0.2 Myelocytes # 0.4 Nucleated RBCs 26 H Smudge Cells PRESENT Platelet Estimate NORMAL Large Platelets PRESENT Plt Morphology Comment NORMAL RBC Morphology NOTED Polychromasia 2+ (3-5) Basophilic Stippling 1+ (0-2) Microcytosis 1+ (5-14) Macrocytosis 1+ (5-14) [place] Bodies PRESENT Schistocytes 1+ (0-2) LA PTT Screen LA Thrombin Time dRVV Screen dRVVT Confirm Interp dRVVT Mixing Study dRVVT Mix Interpret Hexagon Phase Neutraliz Lupus Anticoag Interp VBG pH VBG pCO2 VBG pO2 VBG HCO3 VBG O2 Saturation VBG Base Excess Sodium 136 Potassium 6.1 H* Chloride 103 Carbon Dioxide 28 Anion Gap 11 L BUN 65 H Creatinine 0.92 Estim Creat Clear Calc 76.6 Estimated GFR > 60 POC Glucose Random Glucose 215 H Calcium 9.9 D Phosphorus 3.5 Magnesium 2.7 H Albumin 4.0 Random Vancomycin 14.1 L Tot Complement (CH50) A.phagocytophil DNA PCR Babesia microti DNA PCR Borrelia sp DNA (PCR) Borrelia miyamotoi (PCR) E.chaffeensis DNA (PCR) 10/31/22 10/31/22 05:06 05:47 WBC RBC Hgb Hct MCV MCH MCHC RDW Plt Count MPV Immature Gran % (Auto) Neut % (Auto) Lymph % (Auto) [place] % (Auto) Eos % (Auto) Baso % (Auto) Lymph # (Auto) [place] # (Auto) Eos # (Auto) Baso # (Auto) Abs Immat Gran (auto) Absolute Neuts (auto) Absolute Nucleated RBC Nucleated RBC % (auto) Neutrophils % (Manual) Band Neutrophils % Monocytes % (Manual) Eosinophils % (Manual) Myelocytes % Abs Neuts (Manual) Monocytes # (Manual) Eosinophils # (Manual) Myelocytes # Nucleated RBCs Smudge Cells Platelet Estimate Large Platelets Plt Morphology Comment RBC Morphology Polychromasia Basophilic Stippling Microcytosis Macrocytosis [place] Bodies Schistocytes LA PTT Screen LA Thrombin Time dRVV Screen dRVVT Confirm Interp dRVVT Mixing Study dRVVT Mix Interpret Hexagon Phase Neutraliz Lupus Anticoag Interp VBG pH 7.34 VBG pCO2 56 VBG pO2 53 VBG HCO3 30 H VBG O2 Saturation 80.0 VBG Base Excess 3.7 Sodium Potassium Chloride Carbon Dioxide Anion Gap BUN Creatinine Estim Creat Clear Calc Estimated GFR POC Glucose 217 H Random Glucose Calcium Phosphorus Magnesium Albumin Random Vancomycin Tot Complement (CH50) A.phagocytophil DNA PCR Babesia microti DNA PCR Borrelia sp DNA (PCR) Borrelia miyamotoi (PCR) E.chaffeensis DNA (PCR) Microbiology Microbiology Results: Microbiology 10/24/22 06:11 Blood - Venous Blood Culture - Final No growth after 5 days. 10/24/22 06:11 Blood - Venous Blood Culture - Final No growth after 5 days. 10/26/22 08:12 Sputum - Suctioned Gram Stain - Final 10/26/22 08:12 Sputum - Suctioned Sputum Culture - Final Methicillin Res Staph Aureus 10/18/22 19:16 Blood - Venous Blood Culture - Final No growth after 5 days. 10/18/22 19:05 Blood - Venous Blood Culture - Final No growth after 5 days. Progress Note: A&P Assessment and plan (1) MRSA pneumonia: Status: Acute (2) Pulmonary hypertension: Status: Acute (3) Right heart failure: Status: Acute (4) Acute and chronic respiratory failure with hypoxia: Status: Acute (5) Atrial flutter: Status: Acute (6) Morbid obesity: Status: Acute Plan Assessment:? 72-year-old gentleman with has multiple medical comorbidities now admitted with acute on chronic hypoxic respiratory failure secondary to exacerbation underlying chronic right-sided congestive heart failure, pulmonary hypertension, COPD, and AFib Plan: Neuro:? Critical care encephalopathy, poor arousal with sedation vacation continue with sedation vacation trials. Will obtain CT head for solution. Cardiac:? Acute on chronic right-sided congestive heart failure with underlying AFib and pulmonary hypertension.? Continues on sildenafil.? Continue to titrate off pressor support as tolerated. AFib controlled with digoxin. Pulmonary:? Acute on chronic hypoxic respiratory failure secondary to exacerbation of underlying congestive heart failure now requiring ventilatory support.? Continue to titrate off as tolerated. Now with worsening FiO2 requirements, will obtain CT chest for further evaluation. Renal:? No acute issues. Endo:? No acute issues. GI:? No acute issues. ID:? MRSA pneumonia, now on vancomycin. Heme/Onc:? No acute issues. Psych:? No acute issues. Miscellaneous:? No acute issues. Prophylaxis:? Lovenox, famotidine Diet:? Tube feeds Critical care time spent:? 45 minute Quality Stroke Does the patient have a stroke diagnosis?: No VTE Prior VTE?: No VTE Risk Level:: Medical - moderate - high VTE Device Contraindication: N/A - Device Ordered VTE Drug Contraindication: Treatment Not Indicated
--- NOTE | 2022-10-31 10:31 | MHC.CLN ---
F/U DISCUSSED AT ROUNDS WITH PT TOLERATING TF WITH LOW RESIDUALS PT RECEIVING TF: PROMOTE AT MAX GOAL RATE 50ML/HR PROVIDES 1200KCALS (1469KCALS WITH SEDATION; 20KCALS/KG BASED ON CMW), 75G PROTEIN (1.0G/KG), 1007ML TOTAL WATER FROM FORMULA RECOMMEND RE-STARTING 120ML FREE WATER FLUSHES Q 8 HRS TO PROVIDE 1367ML TOTAL WATER (18ML/KG) CONTINUE TO MONITOR TOLERANCE, RESIDUALS AND LYTES
[2022-10-31 11:13] LABS: VBG Base Excess 2.8 mmol/L; VBG HCO3 29 mmol/L (22-26); VBG pCO2 54 mmHg; VBG pH 7.33 (7.32-7.43); VBG pO2 56 mmHg
[2022-10-31 11:42] LABS: Glucose, Whole Blood 229 mg/dL (60-115)
[2022-10-31 11:49] LABS: Anion Gap 11 (12-20); Blood Urea Nitrogen 61 mg/dL (9-16); Calcium 9.7 mg/dL (8.4-10.2); Carbon Dioxide 29 mmol/L (22-29); Chloride 106 mmol/L (96-108); Creatinine Clr Calc Pharmacy 81.9; Estimated Glomerular Filt Rate > 60; Glucose Random 248 mg/dL (60-115); Potassium 6.1 mmol/L (3.3-5.1); Sodium 140 mmol/L (135-145)
[2022-10-31] MEDS: Norepinephrine Bitartrate/D5W 8 MG/250 ML PLAST..BAG 17.51 MG IV (11:51)
--- NOTE | 2022-10-31 12:21 | PM.PNNEP ---
Subjective Subjective Date of Service: 10/31/22 Interval history: seen and examined vented d/w ICU Physical Exam Vital Signs: Vital Signs: Last Vital Signs Temp 96.6 F L 10/31/22 12:00 Pulse 116 H 10/31/22 12:00 Resp 25 H 10/31/22 12:00 BP 108/73 10/31/22 12:00 Pulse Ox 93 10/31/22 12:00 O2 Del Method Mechanical Ventil ation 10/31/22 12:00 O2 Flow Rate 60 10/24/22 07:42 FiO2 100 10/31/22 12:00 Oxygen Flow Rate 6 10/18/22 18:31 BMI result Body Mass Index 32.1 HEENT: Head: Yes normocephalic and Yes atraumatic Neck: Neck: Yes supple Resp: Auscultation: diminished lung sounds Cardio: Heart sounds: S1 normal heart sound present and S2 normal heart sound present GI: Palpation (GI): Soft to palpation and nontender Extrem: Right upper extremity: edema Objective Data Labs 10/31/22 05:06 10/31/22 11:05 Labs: Laboratory Results - last 24 hr 10/25/22 10/25/22 10/25/22 06:40 09:45 09:45 WBC RBC Hgb Hct MCV MCH MCHC RDW Plt Count MPV Immature Gran % (Auto) Neut % (Auto) Lymph % (Auto) [place] % (Auto) Eos % (Auto) Baso % (Auto) Lymph # (Auto) [place] # (Auto) Eos # (Auto) Baso # (Auto) Abs Immat Gran (auto) Absolute Neuts (auto) Absolute Nucleated RBC Nucleated RBC % (auto) Neutrophils % (Manual) Band Neutrophils % Monocytes % (Manual) Eosinophils % (Manual) Myelocytes % Abs Neuts (Manual) Monocytes # (Manual) Eosinophils # (Manual) Myelocytes # Nucleated RBCs Smudge Cells Platelet Estimate Large Platelets Plt Morphology Comment RBC Morphology Polychromasia Basophilic Stippling Microcytosis Macrocytosis [place] Bodies Schistocytes LA PTT Screen 51 H LA Thrombin Time 16 dRVV Screen 49 H dRVVT Confirm Interp Negative dRVVT Mixing Study TNP dRVVT Mix Interpret TNP Hexagon Phase Neutraliz Weak Positive A Lupus Anticoag Interp see note A VBG pH VBG pCO2 VBG pO2 VBG HCO3 VBG O2 Saturation VBG Base Excess Sodium Potassium Chloride Carbon Dioxide Anion Gap BUN Creatinine Estim Creat Clear Calc Estimated GFR POC Glucose Random Glucose Calcium Phosphorus Magnesium Albumin Random Vancomycin Tot Complement (CH50) 21 L A.phagocytophil DNA PCR TNP Babesia microti DNA PCR TNP Borrelia sp DNA (PCR) TNP Borrelia miyamotoi (PCR) TNP E.chaffeensis DNA (PCR) TNP 10/30/22 10/30/22 10/30/22 12:16 14:11 17:52 WBC RBC Hgb Hct MCV MCH MCHC RDW Plt Count MPV Immature Gran % (Auto) Neut % (Auto) Lymph % (Auto) [place] % (Auto) Eos % (Auto) Baso % (Auto) Lymph # (Auto) [place] # (Auto) Eos # (Auto) Baso # (Auto) Abs Immat Gran (auto) Absolute Neuts (auto) Absolute Nucleated RBC Nucleated RBC % (auto) Neutrophils % (Manual) Band Neutrophils % Monocytes % (Manual) Eosinophils % (Manual) Myelocytes % Abs Neuts (Manual) Monocytes # (Manual) Eosinophils # (Manual) Myelocytes # Nucleated RBCs Smudge Cells Platelet Estimate Large Platelets Plt Morphology Comment RBC Morphology Polychromasia Basophilic Stippling Microcytosis Macrocytosis [place] Bodies Schistocytes LA PTT Screen LA Thrombin Time dRVV Screen dRVVT Confirm Interp dRVVT Mixing Study dRVVT Mix Interpret Hexagon Phase Neutraliz Lupus Anticoag Interp VBG pH VBG pCO2 VBG pO2 VBG HCO3 VBG O2 Saturation VBG Base Excess Sodium 134 L Potassium 6.5 H* Chloride 101 Carbon Dioxide 25 Anion Gap 15 BUN 62 H Creatinine 1.02 Estim Creat Clear Calc 70.1 Estimated GFR > 60 POC Glucose 279 H Random Glucose 299 H Calcium 9.3 Phosphorus Magnesium Albumin Random Vancomycin 19.4 Tot Complement (CH50) A.phagocytophil DNA PCR Babesia microti DNA PCR Borrelia sp DNA (PCR) Borrelia miyamotoi (PCR) E.chaffeensis DNA (PCR) 10/30/22 10/30/22 10/30/22 19:59 22:23 23:56 WBC RBC Hgb Hct MCV MCH MCHC RDW Plt Count MPV Immature Gran % (Auto) Neut % (Auto) Lymph % (Auto) [place] % (Auto) Eos % (Auto) Baso % (Auto) Lymph # (Auto) [place] # (Auto) Eos # (Auto) Baso # (Auto) Abs Immat Gran (auto) Absolute Neuts (auto) Absolute Nucleated RBC Nucleated RBC % (auto) Neutrophils % (Manual) Band Neutrophils % Monocytes % (Manual) Eosinophils % (Manual) Myelocytes % Abs Neuts (Manual) Monocytes # (Manual) Eosinophils # (Manual) Myelocytes # Nucleated RBCs Smudge Cells Platelet Estimate Large Platelets Plt Morphology Comment RBC Morphology Polychromasia Basophilic Stippling Microcytosis Macrocytosis [place] Bodies Schistocytes LA PTT Screen LA Thrombin Time dRVV Screen dRVVT Confirm Interp dRVVT Mixing Study dRVVT Mix Interpret Hexagon Phase Neutraliz Lupus Anticoag Interp VBG pH VBG pCO2 VBG pO2 VBG HCO3 VBG O2 Saturation VBG Base Excess Sodium 135 Potassium 6.7 H* Chloride 102 Carbon Dioxide 23 Anion Gap 17 BUN 67 H Creatinine 1.07 Estim Creat Clear Calc 66.9 Estimated GFR > 60 POC Glucose 248 H 296 H Random Glucose 265 H Calcium 9.3 Phosphorus Magnesium Albumin Random Vancomycin Tot Complement (CH50) A.phagocytophil DNA PCR Babesia microti DNA PCR Borrelia sp DNA (PCR) Borrelia miyamotoi (PCR) E.chaffeensis DNA (PCR) 10/31/22 10/31/22 10/31/22 05:06 05:06 05:06 WBC 18.7 H RBC 3.82 L Hgb 8.4 L Hct 31.4 L MCV 82.2 MCH 22.0 L MCHC 26.8 L RDW 29.4 H Plt Count 236 D MPV TNP Immature Gran % (Auto) Cancelled Neut % (Auto) Cancelled Lymph % (Auto) Cancelled [place] % (Auto) Cancelled Eos % (Auto) Cancelled Baso % (Auto) Cancelled Lymph # (Auto) Cancelled [place] # (Auto) Cancelled Eos # (Auto) Cancelled Baso # (Auto) Cancelled Abs Immat Gran (auto) Cancelled Absolute Neuts (auto) Cancelled Absolute Nucleated RBC 4.290 H Nucleated RBC % (auto) 23.0 H Neutrophils % (Manual) 88 H Band Neutrophils % 5 Monocytes % (Manual) 4 Eosinophils % (Manual) 1 Myelocytes % 2 Abs Neuts (Manual) 17.4 H Monocytes # (Manual) 0.7 Eosinophils # (Manual) 0.2 Myelocytes # 0.4 Nucleated RBCs 26 H Smudge Cells PRESENT Platelet Estimate NORMAL Large Platelets PRESENT Plt Morphology Comment NORMAL RBC Morphology NOTED Polychromasia 2+ (3-5) Basophilic Stippling 1+ (0-2) Microcytosis 1+ (5-14) Macrocytosis 1+ (5-14) [place] Bodies PRESENT Schistocytes 1+ (0-2) LA PTT Screen LA Thrombin Time dRVV Screen dRVVT Confirm Interp dRVVT Mixing Study dRVVT Mix Interpret Hexagon Phase Neutraliz Lupus Anticoag Interp VBG pH VBG pCO2 VBG pO2 VBG HCO3 VBG O2 Saturation VBG Base Excess Sodium 136 Potassium 6.1 H* Chloride 103 Carbon Dioxide 28 Anion Gap 11 L BUN 65 H Creatinine 0.92 Estim Creat Clear Calc 76.6 Estimated GFR > 60 POC Glucose Random Glucose 215 H Calcium 9.9 D Phosphorus 3.5 Magnesium 2.7 H Albumin 4.0 Random Vancomycin 14.1 L Tot Complement (CH50) A.phagocytophil DNA PCR Babesia microti DNA PCR Borrelia sp DNA (PCR) Borrelia miyamotoi (PCR) E.chaffeensis DNA (PCR) 10/31/22 10/31/22 10/31/22 05:06 05:47 11:04 WBC RBC Hgb Hct MCV MCH MCHC RDW Plt Count MPV Immature Gran % (Auto) Neut % (Auto) Lymph % (Auto) [place] % (Auto) Eos % (Auto) Baso % (Auto) Lymph # (Auto) [place] # (Auto) Eos # (Auto) Baso # (Auto) Abs Immat Gran (auto) Absolute Neuts (auto) Absolute Nucleated RBC Nucleated RBC % (auto) Neutrophils % (Manual) Band Neutrophils % Monocytes % (Manual) Eosinophils % (Manual) Myelocytes % Abs Neuts (Manual) Monocytes # (Manual) Eosinophils # (Manual) Myelocytes # Nucleated RBCs Smudge Cells Platelet Estimate Large Platelets Plt Morphology Comment RBC Morphology Polychromasia Basophilic Stippling Microcytosis Macrocytosis [place] Bodies Schistocytes LA PTT Screen LA Thrombin Time dRVV Screen dRVVT Confirm Interp dRVVT Mixing Study dRVVT Mix Interpret Hexagon Phase Neutraliz Lupus Anticoag Interp VBG pH 7.34 7.33 VBG pCO2 56 54 VBG pO2 53 56 VBG HCO3 30 H 29 H VBG O2 Saturation 80.0 83.0 VBG Base Excess 3.7 2.8 Sodium Potassium Chloride Carbon Dioxide Anion Gap BUN Creatinine Estim Creat Clear Calc Estimated GFR POC Glucose 217 H Random Glucose Calcium Phosphorus Magnesium Albumin Random Vancomycin Tot Complement (CH50) A.phagocytophil DNA PCR Babesia microti DNA PCR Borrelia sp DNA (PCR) Borrelia miyamotoi (PCR) E.chaffeensis DNA (PCR) 10/31/22 10/31/22 11:05 11:38 WBC RBC Hgb Hct MCV MCH MCHC RDW Plt Count MPV Immature Gran % (Auto) Neut % (Auto) Lymph % (Auto) [place] % (Auto) Eos % (Auto) Baso % (Auto) Lymph # (Auto) [place] # (Auto) Eos # (Auto) Baso # (Auto) Abs Immat Gran (auto) Absolute Neuts (auto) Absolute Nucleated RBC Nucleated RBC % (auto) Neutrophils % (Manual) Band Neutrophils % Monocytes % (Manual) Eosinophils % (Manual) Myelocytes % Abs Neuts (Manual) Monocytes # (Manual) Eosinophils # (Manual) Myelocytes # Nucleated RBCs Smudge Cells Platelet Estimate Large Platelets Plt Morphology Comment RBC Morphology Polychromasia Basophilic Stippling Microcytosis Macrocytosis [place] Bodies Schistocytes LA PTT Screen LA Thrombin Time dRVV Screen dRVVT Confirm Interp dRVVT Mixing Study dRVVT Mix Interpret Hexagon Phase Neutraliz Lupus Anticoag Interp VBG pH VBG pCO2 VBG pO2 VBG HCO3 VBG O2 Saturation VBG Base Excess Sodium 140 Potassium 6.1 H* Chloride 106 Carbon Dioxide 29 Anion Gap 11 L BUN 61 H Creatinine 0.86 Estim Creat Clear Calc 81.9 Estimated GFR > 60 POC Glucose 229 H Random Glucose 248 H Calcium 9.7 Phosphorus Magnesium Albumin Random Vancomycin Tot Complement (CH50) A.phagocytophil DNA PCR Babesia microti DNA PCR Borrelia sp DNA (PCR) Borrelia miyamotoi (PCR) E.chaffeensis DNA (PCR) Microbiology Microbiology Results: Microbiology 10/24/22 06:11 Blood - Venous Blood Culture - Final No growth after 5 days. 10/24/22 06:11 Blood - Venous Blood Culture - Final No growth after 5 days. 10/26/22 08:12 Sputum - Suctioned Gram Stain - Final 10/26/22 08:12 Sputum - Suctioned Sputum Culture - Final Methicillin Res Staph Aureus 10/18/22 19:16 Blood - Venous Blood Culture - Final No growth after 5 days. 10/18/22 19:05 Blood - Venous Blood Culture - Final No growth after 5 days. Procedures Date of Service Date of Service: 10/31/22 Assessment & Plan Assessment and plan (1) SAYDA (acute kidney injury): Status: Acute (2) Hyponatremia: Status: Acute (3) Heart failure with preserved ejection fraction: Status: Acute Plan Sna normalized SAYDA due to renal hypoperfusion resolved Krystin < 20 known HFpEF hypervolemic hyponatremia resolved REC agree with holding furosemide gtt sodium zirconium for high potassium follow kidney function and electrolytes ? Time Spent With Patient Time: Total time managing care of this patient today ____ minutes. Progress Note: Quality Stroke Does the patient have a stroke diagnosis?: No
--- NOTE | 2022-10-31 15:54 | W.PM.CCHP ---
Procedures Date of Service Date of Service: 10/31/22 Chest Tube Chest Tube 1: Progress: Informed consent for thoracentesis was obtained from patient's cyst and a right sided mid axillary thoracentesis at 6th intercostal space was attempted with ultrasound guidance with drainage of approximately 30 cc of straw-colored fluid with discontinuation of fluid flow and air aspirated thereafter. Procedure was abandoned and for concerns of developing pneumothorax x-ray was obtained that showed new right-sided pneumothorax. After which procedures converted to placement of right-sided midclavicular 14 [place] modified Seldinger technique chest tube, initially with aspiration of air with chest tube placement. Upon connection to collection chamber approximately 100 cc of blood tinged pleural fluid drained. X-ray for tube position is pending.
--- NOTE | 2022-10-31 17:19 | PC.NURSE ---
Assumed care of patient 07:00 Per team rounds, plan for Chest CT and Head CT 10:[address] with RN, RT, engineering technologist. Pt bathed 11:30 Per MD plan for right side thoracentesis due to concern for increased right pleural effusion. obtained consent from pt sister. 15:02 Procedure started for right thoracentesis. Time out performed. 30 ml straw colored fluid aspirated. 15:31 CXR obtained post procedure. Pt SaO2 decreased to 86%. RT increased PEEP from 5.0 to 8.0 with no improvement. Per MD plan for chest tube placement. 15:36 Procedure started for chest tube placement to right anterior chest. Time out performed. Pigtail catheter placed by MD. 16:16 CXR obtained post procedure. Per MD chest tube system set up to -20 wall suction. Initial drainage 800 ml serosanguineous fluid. MD notified. Pt SaO2 improved to 92%. High fall precautions in place, Q2H mouth care, Q2H repo
[2022-10-31 18:00] LABS: Glucose, Whole Blood 287 mg/dL (60-115)
[2022-10-31 18:33] LABS: Strep Pneumo Ag urine Not Detected (Not Detected)
[2022-10-31 20:13] LABS: Hematocrit 32.9 % (42.0-52.0); Hemoglobin 8.5 g/dl (14.0-18.0); Mean Corpuscular HGB Conc 25.8 g/dl (31.0-36.0); Mean Corpuscular Hemoglobin 21.7 pg (27.0-33.0); Mean Corpuscular Volume 84.1 fL (80.0-98.0); PLT CLUMP 1; Red Blood Count 3.91 X10*6/uL (4.60-5.80); Red Cell Distribution Width 29.9 % (11.0-16.0)
[2022-10-31 20:19] LABS: Blood Urea Nitrogen 59 mg/dL (9-16); Calcium 9.5 mg/dL (8.4-10.2); Chloride 108 mmol/L (96-108); Creatinine Clr Calc Pharmacy 79.2; Estimated Glomerular Filt Rate > 60; Glucose Random 313 mg/dL (60-115); Potassium 6.5 mmol/L (3.3-5.1); Sodium 143 mmol/L (135-145)
[2022-10-31 20:38] LABS: NRBC Pct Auto 12.6 /100WBC (0.0-0.2)
[2022-10-31 20:41] LABS: Lymphocytes Percent Manual 1 % (20-40); Monocytes Percent Manual 2 % (2-11); Neutrophils Percent Manual 97 % (45-73); Nucleated Red Blood Cells 12 /100WBC (0-0)
[2022-10-31 20:42] LABS: Ovalocytes 1+ (5-14) /OIF; Platelet Estimate NORMAL (NORMAL); Platelet Morphology Comment NORMAL
[2022-10-31 20:53] LABS: Lymphocytes Absolute Manual 0.2 X10*3/uL (1.2-4.9); Monocytes Absolute Manual 0.4 X10*3/uL (0.1-1.2); Platelet Count 243 X10*3/uL (160-400); White Blood Count 17.6 X10*3/uL (4.8-10.8)
[2022-10-31 20:54] LABS: Band Neutrophils Percent 0 % (3-5); Neutrophils Absolute Manual 17.1 X10*3/uL (2.0-8.3)
[2022-10-31 20:56] LABS: RBC Morphology NOTED
[2022-10-31] MEDS: Lactulose 20 GM/30 ML SOLUTION 40 GM PO (21:15)
[2022-10-31 21:21] LABS: Venous Blood Gas Refer to POC result
[2022-10-31 21:41] LABS: Carbon Dioxide 25 mmol/L (22-29)
[2022-10-31 23:03] LABS: Glucose, Whole Blood 313 mg/dL (60-115)
[2022-10-31] MEDS: propofoL 1,000 MG/100 ML VIAL 15.28 MG IVCONT (23:59)
[2022-11-01] VITALS (40 sets, daily range): BP systolic 78–104; BP diastolic 51–68; PULSE 82–123; RESP 16–28; TEMP 35–37.1; O2SAT 90–94; BMI 32.1
[2022-11-01] MEDS: Norepinephrine Bitartrate/D5W 8 MG/250 ML PLAST..BAG 23.88 MG IV
[2022-11-01 05:08] LABS: VBG HCO3 31 mmol/L (22-26); VBG pCO2 65 mmHg; VBG pH 7.29 (7.32-7.43); VBG pO2 53 mmHg
[2022-11-01 05:22] LABS: Hematocrit 31.9 % (42.0-52.0); Hemoglobin 8.2 g/dl (14.0-18.0); Mean Corpuscular HGB Conc 25.7 g/dl (31.0-36.0); Mean Corpuscular Hemoglobin 21.9 pg (27.0-33.0); Mean Corpuscular Volume 85.3 fL (80.0-98.0); PLT CLUMP 1; Red Blood Count 3.74 X10*6/uL (4.60-5.80); Red Cell Distribution Width 29.9 % (11.0-16.0)
[2022-11-01 05:23] LABS: NRBC Pct Auto 13.6 /100WBC (0.0-0.2)
[2022-11-01 05:24] LABS: Legionella Ag Urine Not Detected (Not Detected)
[2022-11-01 05:33] LABS: Vancomycin Random 17.9 mcg/mL (15-20)
[2022-11-01 05:57] LABS: Glucose, Whole Blood 335 mg/dL (60-115)
[2022-11-01 05:58] LABS: Albumin Level 3.4 g/dL (3.5-5.0); Anion Gap 14 (12-20); Blood Urea Nitrogen 63 mg/dL (9-16); Carbon Dioxide 29 mmol/L (22-29); Chloride 108 mmol/L (96-108); Creatinine Clr Calc Pharmacy 63.5; Estimated Glomerular Filt Rate > 60; Glucose Random 343 mg/dL (60-115); Phosphorus 4.1 mg/dL (2.7-4.5); Potassium 6.8 mmol/L (3.3-5.1); Sodium 144 mmol/L (135-145)
[2022-11-01 05:59] LABS: Venous Blood Gas Refer to POC result
[2022-11-01] MEDS: Insulin Lispro 100 UNIT/ML 3 ML VIAL SUBCUT ×3 (06:00→17:50)
[2022-11-01] MEDS: propofoL 1,000 MG/100 ML VIAL 5.09 MG IVCONT ×2 (06:01→14:07)
--- NOTE | 2022-11-01 06:04 | HE.PHANOTE ---
RE: JOSE Patients level came back this morning an hour early at 17.9. Patients renal function also declined, Scr from 0.92 to 1.11. Will decrease dose to 1250 mg Q24H. Next level for tomorrow morning after 1 dose to ensure patient safety vs efficacy. Predicted AUC 511 mg/L/hr
[2022-11-01 06:11] LABS: Band Neutrophils Percent 2 % (3-5); Metamyelocytes Percent 1 %; Monocytes Percent Manual 1 % (2-11); Myelocytes Percent 1 %; Neutrophils Percent Manual 95 % (45-73); Nucleated Red Blood Cells 17 /100WBC (0-0)
[2022-11-01 06:14] LABS: Large Platelet PRESENT; Macrocytosis 1+ (5-14) /OIF; Platelet Estimate NORMAL (NORMAL); RBC Morphology NOTED
[2022-11-01 06:15] LABS: Hypochromasia 2+ (15-30) /OIF; Microcytosis 1+ (5-14) /OIF; Platelet Morphology Comment NOTE
[2022-11-01 06:16] LABS: Basophilic Stippling 1+ (0-2) /OIF; Polychromasia 1+ (0-2) /OIF
[2022-11-01 06:20] LABS: Metamyelocytes Absolute 0.2 X10*3/uL; Monocytes Absolute Manual 0.2 X10*3/uL (0.1-1.2); Myelocytes Absolute 0.2 X10*/uL; Neutrophils Absolute Manual 19.3 X10*3/uL (2.0-8.3); Platelet Count 281 X10*3/uL (160-400); White Blood Count 19.9 X10*3/uL (4.8-10.8)
[2022-11-01] MEDS: vancomycin HCL 1,250 MG in 0.9 % Sodium Chloride 250 ML 166.67 MG IV (07:37)
[2022-11-01] MEDS: Chlorhexidine Gluc Oral Rinse 15 ML MOUTHWASH BUCCAL ×3 (07:37→21:16)
[2022-11-01] MEDS: Famotidine/PF 20 MG/2 ML VIAL IVPUSH (07:38)
[2022-11-01] MEDS: Piperacillin Sodium/Tazobactam 4.5 GM in 0.9 % Sodium Chloride 100 ML IV ×2 (07:38→21:16)
[2022-11-01] MEDS: Digoxin 0.5 MG/2 ML AMPUL 0.25 MG IVPUSH (07:39)
[2022-11-01] MEDS: Sildenafil Citrate 20 MG TABLET PO ×3 (07:54→21:16)
[2022-11-01] MEDS: Norepinephrine Bitartrate/D5W 8 MG/250 ML PLAST..BAG 33.43 MG IV ×2 (08:25→15:27)
--- NOTE | 2022-11-01 08:31 | PC.NURSE ---
no tidaling, MD aware. Flushed 20cc by MD, tidaling resumed.
--- NOTE | 2022-11-01 08:46 | PM.CCPN ---
Subjective Subjective Date of Service: 11/01/22 Interval History: 72-year-old gentleman with underlying history of COPD, pulmonary hypertension, right heart failure initially admitted on 10/18/2022 with progressive dyspnea with hospital course significant for development of GI bleed status post EGD and sigmoidoscopy on 10/20/2022 demonstrating a bleeding oropharyngeal lesion; also with progressively worsening hypoxemia and hypercapnia requiring BiPAP support and transfer to intensive care unit and intubation on 10/24/2022 secondary to progressive right-sided heart failure with AFib requiring vasopressor support, further complicated by critical care encephalopathy and MRSA pneumonia. on 10/30/2022 again with worsening hypoxemia, essentially maximum ventilatory support. CT chest on 10/31/2022 with large right-sided pleural effusion, right-sided thoracenteses attempted with development of pneumothorax with conversion to right-sided chest tube and drainage of approximately 1 L of pleural fluid with minimal improvement in oxygenation. No events overnight. Critical Care Time (minutes): 60 Physical Exam Vital Signs: Vital Signs: Last Vital Signs Temp 97.7 F 11/01/22 08:00 Pulse 119 H 11/01/22 08:00 Resp 24 H 11/01/22 08:00 BP 96/66 11/01/22 08:00 Pulse Ox 92 11/01/22 08:00 O2 Del Method Mechanical Ventil ation 11/01/22 08:00 O2 Flow Rate 60 10/24/22 07:42 FiO2 100 11/01/22 08:19 Oxygen Flow Rate 6 10/18/22 18:31 BMI result Body Mass Index 32.1 Const: General: no acute distress and other ( Sedated and event, poor arousal with sedation vacation) Eyes: Sclerae: sclerae normal Neck: Neck: Yes no lymphadenopathy, Yes trachea midline and Yes supple Resp: Auscultation: crackles ( mild bilateral) Cardio: Rate: tachycardic Rhythm: abnormal rhythm regularly irregular Heart sounds: no gallops, no murmurs and no rubs GI: Palpation (GI): Soft to palpation and Other GI palpation findings present ( Nontender) Auscultation: normal bowel sounds Extrem: General: No clubbing, No cyanosis and Yes edema ( 2+ bilateral) Objective Data Labs 11/01/22 04:55 11/01/22 04:55 Labs: Laboratory Results - last 24 hr 10/25/22 10/31/2223 07:39 11:04 11:05 WBC RBC Hgb Hct MCV MCH MCHC RDW Plt Count MPV Immature Gran % (Auto) Neut % (Auto) Lymph % (Auto) [place] % (Auto) Eos % (Auto) Baso % (Auto) Lymph # (Auto) [place] # (Auto) Eos # (Auto) Baso # (Auto) Abs Immat Gran (auto) Absolute Neuts (auto) Absolute Nucleated RBC Nucleated RBC % (auto) Neutrophils % (Manual) Band Neutrophils % Lymphocytes % (Manual) Monocytes % (Manual) Metamyelocytes % Myelocytes % Abs Neuts (Manual) Lymphocytes # (Manual) Monocytes # (Manual) Metamyelocytes # Myelocytes # Nucleated RBCs Platelet Estimate Large Platelets Plt Morphology Comment RBC Morphology Polychromasia Hypochromasia Basophilic Stippling Microcytosis Macrocytosis Ovalocytes VBG pH 7.33 VBG pCO2 54 VBG pO2 56 VBG HCO3 29 H VBG O2 Saturation 83.0 VBG Base Excess 2.8 Sodium 140 Potassium 6.1 H* Chloride 106 Carbon Dioxide 29 Anion Gap 11 L BUN 61 H Creatinine 0.86 Estim Creat Clear Calc 81.9 Estimated GFR > 60 POC Glucose Random Glucose 248 H Calcium 9.7 Phosphorus Magnesium Albumin Random Vancomycin Ur L.pneumophila Ag Not Detected Ur Strep pneumoniae Ag Not Detected 10/31/22 10/31/22 10/31/22 11:38 17:56 19:42 WBC 17.6 H RBC 3.91 L Hgb 8.5 L Hct 32.9 L MCV 84.1 MCH 21.7 L MCHC 25.8 L RDW 29.9 H Plt Count 243 MPV Not Reportable Immature Gran % (Auto) Cancelled Neut % (Auto) Cancelled Lymph % (Auto) Cancelled [place] % (Auto) Cancelled Eos % (Auto) Cancelled Baso % (Auto) Cancelled Lymph # (Auto) Cancelled [place] # (Auto) Cancelled Eos # (Auto) Cancelled Baso # (Auto) Cancelled Abs Immat Gran (auto) Cancelled Absolute Neuts (auto) Cancelled Absolute Nucleated RBC 2.220 H Nucleated RBC % (auto) 12.6 H Neutrophils % (Manual) 97 H Band Neutrophils % 0 L Lymphocytes % (Manual) 1 L Monocytes % (Manual) 2 Metamyelocytes % Myelocytes % Abs Neuts (Manual) 17.1 H Lymphocytes # (Manual) 0.2 L Monocytes # (Manual) 0.4 Metamyelocytes # Myelocytes # Nucleated RBCs 12 H Platelet Estimate NORMAL Large Platelets Plt Morphology Comment NORMAL RBC Morphology NOTED Polychromasia Hypochromasia Basophilic Stippling Microcytosis Macrocytosis Ovalocytes 1+ (5-14) VBG pH VBG pCO2 VBG pO2 VBG HCO3 VBG O2 Saturation VBG Base Excess Sodium Potassium Chloride Carbon Dioxide Anion Gap BUN Creatinine Estim Creat Clear Calc Estimated GFR POC Glucose 229 H 287 H Random Glucose Calcium Phosphorus Magnesium Albumin Random Vancomycin Ur L.pneumophila Ag Ur Strep pneumoniae Ag 10/31/22 10/31/22 11/01/22 19:42 23:00 04:55 WBC 19.9 H RBC 3.74 L Hgb 8.2 L Hct 31.9 L MCV 85.3 MCH 21.9 L MCHC 25.7 L RDW 29.9 H Plt Count 281 MPV Not Reportable Immature Gran % (Auto) Cancelled Neut % (Auto) Cancelled Lymph % (Auto) Cancelled [place] % (Auto) Cancelled Eos % (Auto) Cancelled Baso % (Auto) Cancelled Lymph # (Auto) Cancelled [place] # (Auto) Cancelled Eos # (Auto) Cancelled Baso # (Auto) Cancelled Abs Immat Gran (auto) Cancelled Absolute Neuts (auto) Cancelled Absolute Nucleated RBC 2.710 H Nucleated RBC % (auto) 13.6 H Neutrophils % (Manual) 95 H Band Neutrophils % 2 L Lymphocytes % (Manual) Monocytes % (Manual) 1 L Metamyelocytes % 1 Myelocytes % 1 Abs Neuts (Manual) 19.3 H Lymphocytes # (Manual) Monocytes # (Manual) 0.2 Metamyelocytes # 0.2 Myelocytes # 0.2 Nucleated RBCs 17 H Platelet Estimate NORMAL Large Platelets PRESENT Plt Morphology Comment NOTE RBC Morphology NOTED Polychromasia 1+ (0-2) Hypochromasia 2+ (15-30) Basophilic Stippling 1+ (0-2) Microcytosis 1+ (5-14) Macrocytosis 1+ (5-14) Ovalocytes VBG pH VBG pCO2 VBG pO2 VBG HCO3 VBG O2 Saturation VBG Base Excess Sodium 143 Potassium 6.5 H* Chloride 108 Carbon Dioxide 25 Anion Gap TNP BUN 59 H Creatinine 0.89 Estim Creat Clear Calc 79.2 Estimated GFR > 60 POC Glucose 313 H Random Glucose 313 H Calcium 9.5 Phosphorus Magnesium Albumin Random Vancomycin Ur L.pneumophila Ag Ur Strep pneumoniae Ag 11/01/22 11/01/22 11/01/22 04:55 04:55 04:58 WBC RBC Hgb Hct MCV MCH MCHC RDW Plt Count MPV Immature Gran % (Auto) Neut % (Auto) Lymph % (Auto) [place] % (Auto) Eos % (Auto) Baso % (Auto) Lymph # (Auto) [place] # (Auto) Eos # (Auto) Baso # (Auto) Abs Immat Gran (auto) Absolute Neuts (auto) Absolute Nucleated RBC Nucleated RBC % (auto) Neutrophils % (Manual) Band Neutrophils % Lymphocytes % (Manual) Monocytes % (Manual) Metamyelocytes % Myelocytes % Abs Neuts (Manual) Lymphocytes # (Manual) Monocytes # (Manual) Metamyelocytes # Myelocytes # Nucleated RBCs Platelet Estimate Large Platelets Plt Morphology Comment RBC Morphology Polychromasia Hypochromasia Basophilic Stippling Microcytosis Macrocytosis Ovalocytes VBG pH 7.29 L VBG pCO2 65 VBG pO2 53 VBG HCO3 31 H VBG O2 Saturation 79.0 VBG Base Excess 4.0 Sodium 144 Potassium 6.8 H* Chloride 108 Carbon Dioxide 29 Anion Gap 14 BUN 63 H Creatinine 1.11 Estim Creat Clear Calc 63.5 Estimated GFR > 60 POC Glucose Random Glucose 343 H Calcium 10.0 Phosphorus 4.1 Magnesium 3.0 H Albumin 3.4 L Random Vancomycin 17.9 Ur L.pneumophila Ag Ur Strep pneumoniae Ag 11/01/22 05:52 WBC RBC Hgb Hct MCV MCH MCHC RDW Plt Count MPV Immature Gran % (Auto) Neut % (Auto) Lymph % (Auto) [place] % (Auto) Eos % (Auto) Baso % (Auto) Lymph # (Auto) [place] # (Auto) Eos # (Auto) Baso # (Auto) Abs Immat Gran (auto) Absolute Neuts (auto) Absolute Nucleated RBC Nucleated RBC % (auto) Neutrophils % (Manual) Band Neutrophils % Lymphocytes % (Manual) Monocytes % (Manual) Metamyelocytes % Myelocytes % Abs Neuts (Manual) Lymphocytes # (Manual) Monocytes # (Manual) Metamyelocytes # Myelocytes # Nucleated RBCs Platelet Estimate Large Platelets Plt Morphology Comment RBC Morphology Polychromasia Hypochromasia Basophilic Stippling Microcytosis Macrocytosis Ovalocytes VBG pH VBG pCO2 VBG pO2 VBG HCO3 VBG O2 Saturation VBG Base Excess Sodium Potassium Chloride Carbon Dioxide Anion Gap BUN Creatinine Estim Creat Clear Calc Estimated GFR POC Glucose 335 H Random Glucose Calcium Phosphorus Magnesium Albumin Random Vancomycin Ur L.pneumophila Ag Ur Strep pneumoniae Ag Microbiology Microbiology Results: Microbiology 10/24/22 06:11 Blood - Venous Blood Culture - Final No growth after 5 days. 10/24/22 06:11 Blood - Venous Blood Culture - Final No growth after 5 days. 10/26/22 08:12 Sputum - Suctioned Gram Stain - Final 10/26/22 08:12 Sputum - Suctioned Sputum Culture - Final Methicillin Res Staph Aureus 10/18/22 19:16 Blood - Venous Blood Culture - Final No growth after 5 days. 10/18/22 19:05 Blood - Venous Blood Culture - Final No growth after 5 days. Progress Note: A&P Assessment and plan (1) MRSA pneumonia: Status: Acute (2) Pulmonary hypertension: Status: Acute (3) Right heart failure: Status: Acute (4) Pleural effusion due to congestive heart failure: Status: Acute (5) Acute and chronic respiratory failure with hypoxia: Status: Acute (6) COPD (chronic obstructive pulmonary disease): Status: Acute Plan Assessment: 72-year-old gentleman with has multiple medical comorbidities now admitted with acute on chronic hypoxic respiratory failure secondary to exacerbation underlying chronic right-sided congestive heart failure, pulmonary hypertension, COPD, and AFib Plan: Neuro: Critical care encephalopathy, poor arousal with sedation vacation continue with sedation vacation trials. Will obtain CT head for solution. Cardiac: Acute on chronic right-sided congestive heart failure with underlying AFib and pulmonary hypertension. Continues on sildenafil. Continue to titrate off pressor support as tolerated. AFib controlled with digoxin. Pulmonary: Acute on chronic hypoxic respiratory failure secondary to exacerbation of underlying congestive heart failure now requiring ventilatory support. Continue to titrate off as tolerated. Now with worsening FiO2 requirements. CT chest with large right-sided pleural effusion, right-sided thoracentesis attempted, but secondary to development of pneumothorax converted to chest tube with drainage of approximately 1 L of pleural fluid with minimal improvement in oxygenation. Renal: No acute issues. Endo: No acute issues. GI: No acute issues. ID: MRSA pneumonia, now on vancomycin. Heme/Onc: No acute issues. Psych: No acute issues. Miscellaneous: No acute issues. Prophylaxis: Lovenox, famotidine Diet: Tube feeds Critical care time spent: 45 minute Quality Stroke Does the patient have a stroke diagnosis?: No VTE Prior VTE?: No VTE Risk Level:: Medical - moderate - high VTE Device Contraindication: N/A - Device Ordered VTE Drug Contraindication: Treatment Not Indicated
[2022-11-01] MEDS: Furosemide 200 MG in 0.9 % Sodium Chloride 80 ML IVCONT (08:57)
[2022-11-01] MEDS: Insulin Glargine,Hum.rec.anlog 100 UNIT/ML 10 ML VIAL 10 UNIT SUBCUT (09:15)
--- NOTE | 2022-11-01 10:40 | P.PNNP_ITS ---
Subjective Subjective Date of Service: 11/01/22 Interval history: seen and examined vented Physical Exam Vital Signs: Vital Signs: Last Vital Signs Temp 97.5 F 11/01/22 10:00 Pulse 117 H 11/01/22 10:00 Resp 26 H 11/01/22 10:00 BP 101/63 11/01/22 10:00 Pulse Ox 91 L 11/01/22 10:00 O2 Del Method Mechanical Ventil ation 11/01/22 10:00 O2 Flow Rate 60 10/24/22 07:42 FiO2 100 11/01/22 10:00 Oxygen Flow Rate 6 10/18/22 18:31 BMI result Body Mass Index 32.1 HEENT: Head: Yes normocephalic and Yes atraumatic Neck: Neck: Yes supple Resp: Auscultation: diminished lung sounds Cardio: Heart sounds: S1 normal heart sound present and S2 normal heart sound present GI: Palpation (GI): Soft to palpation and nontender Extrem: Right upper extremity: edema Objective Data Labs 11/01/22 04:55 11/01/22 04:55 Labs: Laboratory Results - last 24 hr 10/25/22 10/31/22 10/31/22 07:39 11:04 11:05 WBC RBC Hgb Hct MCV MCH MCHC RDW Plt Count MPV Immature Gran % (Auto) Neut % (Auto) Lymph % (Auto) [place] % (Auto) Eos % (Auto) Baso % (Auto) Lymph # (Auto) [place] # (Auto) Eos # (Auto) Baso # (Auto) Abs Immat Gran (auto) Absolute Neuts (auto) Absolute Nucleated RBC Nucleated RBC % (auto) Neutrophils % (Manual) Band Neutrophils % Lymphocytes % (Manual) Monocytes % (Manual) Metamyelocytes % Myelocytes % Abs Neuts (Manual) Lymphocytes # (Manual) Monocytes # (Manual) Metamyelocytes # Myelocytes # Nucleated RBCs Platelet Estimate Large Platelets Plt Morphology Comment RBC Morphology Polychromasia Hypochromasia Basophilic Stippling Microcytosis Macrocytosis Ovalocytes VBG pH 7.33 VBG pCO2 54 VBG pO2 56 VBG HCO3 29 H VBG O2 Saturation 83.0 VBG Base Excess 2.8 Sodium 140 Potassium 6.1 H* Chloride 106 Carbon Dioxide 29 Anion Gap 11 L BUN 61 H Creatinine 0.86 Estim Creat Clear Calc 81.9 Estimated GFR > 60 POC Glucose Random Glucose 248 H Calcium 9.7 Phosphorus Magnesium Albumin Random Vancomycin Ur L.pneumophila Ag Not Detected Ur Strep pneumoniae Ag Not Detected 10/31/22 10/31/22 10/31/22 11:38 17:56 19:42 WBC 17.6 H RBC 3.91 L Hgb 8.5 L Hct 32.9 L MCV 84.1 MCH 21.7 L MCHC 25.8 L RDW 29.9 H Plt Count 243 MPV Not Reportable Immature Gran % (Auto) Cancelled Neut % (Auto) Cancelled Lymph % (Auto) Cancelled [place] % (Auto) Cancelled Eos % (Auto) Cancelled Baso % (Auto) Cancelled Lymph # (Auto) Cancelled [place] # (Auto) Cancelled Eos # (Auto) Cancelled Baso # (Auto) Cancelled Abs Immat Gran (auto) Cancelled Absolute Neuts (auto) Cancelled Absolute Nucleated RBC 2.220 H Nucleated RBC % (auto) 12.6 H Neutrophils % (Manual) 97 H Band Neutrophils % 0 L Lymphocytes % (Manual) 1 L Monocytes % (Manual) 2 Metamyelocytes % Myelocytes % Abs Neuts (Manual) 17.1 H Lymphocytes # (Manual) 0.2 L Monocytes # (Manual) 0.4 Metamyelocytes # Myelocytes # Nucleated RBCs 12 H Platelet Estimate NORMAL Large Platelets Plt Morphology Comment NORMAL RBC Morphology NOTED Polychromasia Hypochromasia Basophilic Stippling Microcytosis Macrocytosis Ovalocytes 1+ (5-14) VBG pH VBG pCO2 VBG pO2 VBG HCO3 VBG O2 Saturation VBG Base Excess Sodium Potassium Chloride Carbon Dioxide Anion Gap BUN Creatinine Estim Creat Clear Calc Estimated GFR POC Glucose 229 H 287 H Random Glucose Calcium Phosphorus Magnesium Albumin Random Vancomycin Ur L.pneumophila Ag Ur Strep pneumoniae Ag 10/31/22 10/31/22 11/01/22 19:42 23:00 04:55 WBC 19.9 H RBC 3.74 L Hgb 8.2 L Hct 31.9 L MCV 85.3 MCH 21.9 L MCHC 25.7 L RDW 29.9 H Plt Count 281 MPV Not Reportable Immature Gran % (Auto) Cancelled Neut % (Auto) Cancelled Lymph % (Auto) Cancelled [place] % (Auto) Cancelled Eos % (Auto) Cancelled Baso % (Auto) Cancelled Lymph # (Auto) Cancelled [place] # (Auto) Cancelled Eos # (Auto) Cancelled Baso # (Auto) Cancelled Abs Immat Gran (auto) Cancelled Absolute Neuts (auto) Cancelled Absolute Nucleated RBC 2.710 H Nucleated RBC % (auto) 13.6 H Neutrophils % (Manual) 95 H Band Neutrophils % 2 L Lymphocytes % (Manual) Monocytes % (Manual) 1 L Metamyelocytes % 1 Myelocytes % 1 Abs Neuts (Manual) 19.3 H Lymphocytes # (Manual) Monocytes # (Manual) 0.2 Metamyelocytes # 0.2 Myelocytes # 0.2 Nucleated RBCs 17 H Platelet Estimate NORMAL Large Platelets PRESENT Plt Morphology Comment NOTE RBC Morphology NOTED Polychromasia 1+ (0-2) Hypochromasia 2+ (15-30) Basophilic Stippling 1+ (0-2) Microcytosis 1+ (5-14) Macrocytosis 1+ (5-14) Ovalocytes VBG pH VBG pCO2 VBG pO2 VBG HCO3 VBG O2 Saturation VBG Base Excess Sodium 143 Potassium 6.5 H* Chloride 108 Carbon Dioxide 25 Anion Gap TNP BUN 59 H Creatinine 0.89 Estim Creat Clear Calc 79.2 Estimated GFR > 60 POC Glucose 313 H Random Glucose 313 H Calcium 9.5 Phosphorus Magnesium Albumin Random Vancomycin Ur L.pneumophila Ag Ur Strep pneumoniae Ag 11/01/22 11/01/22 11/01/22 04:55 04:55 04:58 WBC RBC Hgb Hct MCV MCH MCHC RDW Plt Count MPV Immature Gran % (Auto) Neut % (Auto) Lymph % (Auto) [place] % (Auto) Eos % (Auto) Baso % (Auto) Lymph # (Auto) [place] # (Auto) Eos # (Auto) Baso # (Auto) Abs Immat Gran (auto) Absolute Neuts (auto) Absolute Nucleated RBC Nucleated RBC % (auto) Neutrophils % (Manual) Band Neutrophils % Lymphocytes % (Manual) Monocytes % (Manual) Metamyelocytes % Myelocytes % Abs Neuts (Manual) Lymphocytes # (Manual) Monocytes # (Manual) Metamyelocytes # Myelocytes # Nucleated RBCs Platelet Estimate Large Platelets Plt Morphology Comment RBC Morphology Polychromasia Hypochromasia Basophilic Stippling Microcytosis Macrocytosis Ovalocytes VBG pH 7.29 L VBG pCO2 65 VBG pO2 53 VBG HCO3 31 H VBG O2 Saturation 79.0 VBG Base Excess 4.0 Sodium 144 Potassium 6.8 H* Chloride 108 Carbon Dioxide 29 Anion Gap 14 BUN 63 H Creatinine 1.11 Estim Creat Clear Calc 63.5 Estimated GFR > 60 POC Glucose Random Glucose 343 H Calcium 10.0 Phosphorus 4.1 Magnesium 3.0 H Albumin 3.4 L Random Vancomycin 17.9 Ur L.pneumophila Ag Ur Strep pneumoniae Ag 11/01/22 05:52 WBC RBC Hgb Hct MCV MCH MCHC RDW Plt Count MPV Immature Gran % (Auto) Neut % (Auto) Lymph % (Auto) [place] % (Auto) Eos % (Auto) Baso % (Auto) Lymph # (Auto) [place] # (Auto) Eos # (Auto) Baso # (Auto) Abs Immat Gran (auto) Absolute Neuts (auto) Absolute Nucleated RBC Nucleated RBC % (auto) Neutrophils % (Manual) Band Neutrophils % Lymphocytes % (Manual) Monocytes % (Manual) Metamyelocytes % Myelocytes % Abs Neuts (Manual) Lymphocytes # (Manual) Monocytes # (Manual) Metamyelocytes # Myelocytes # Nucleated RBCs Platelet Estimate Large Platelets Plt Morphology Comment RBC Morphology Polychromasia Hypochromasia Basophilic Stippling Microcytosis Macrocytosis Ovalocytes VBG pH VBG pCO2 VBG pO2 VBG HCO3 VBG O2 Saturation VBG Base Excess Sodium Potassium Chloride Carbon Dioxide Anion Gap BUN Creatinine Estim Creat Clear Calc Estimated GFR POC Glucose 335 H Random Glucose Calcium Phosphorus Magnesium Albumin Random Vancomycin Ur L.pneumophila Ag Ur Strep pneumoniae Ag Microbiology Microbiology Results: Microbiology 10/24/22 06:11 Blood - Venous Blood Culture - Final No growth after 5 days. 10/24/22 06:11 Blood - Venous Blood Culture - Final No growth after 5 days. 10/26/22 08:12 Sputum - Suctioned Gram Stain - Final 10/26/22 08:12 Sputum - Suctioned Sputum Culture - Final Methicillin Res Staph Aureus 10/18/22 19:16 Blood - Venous Blood Culture - Final No growth after 5 days. 10/18/22 19:05 Blood - Venous Blood Culture - Final No growth after 5 days. Procedures Date of Service Date of Service: 11/01/22 Assessment & Plan Assessment and plan (1) SAYDA (acute kidney injury): Status: Acute (2) Heart failure with preserved ejection fraction: Status: Acute (3) Hyperkalemia: Status: Acute Plan Scr marginally up SAYDA due to renal hypoperfusion resolved Krystin < 20 known HFpEF hypervolemic hyponatremia resolved elevated serum potassium due to compromised distal flow and ? cytosol release REC sodium zirconium as needed follow kidney function and electrolytes ? Time Spent With Patient Time: Total time managing care of this patient today ____ minutes. Progress Note: Quality Stroke Does the patient have a stroke diagnosis?: No
[2022-11-01 12:21] LABS: Glucose, Whole Blood 264 mg/dL (60-115)
[2022-11-01 17:42] LABS: Glucose, Whole Blood 260 mg/dL (60-115)
--- NOTE | 2022-11-01 18:41 | PC.NURSE ---
Pt restarted on lasix gtt per order. Decreased UOP & hypotension causing increased pressor requirement this afternoon, aware.
[2022-11-01] MEDS: Norepinephrine Bitartrate/D5W 8 MG/250 ML PLAST..BAG 46.16 MG IV (21:16)
[2022-11-01 23:57] LABS: Glucose, Whole Blood 296 mg/dL (60-115)
[2022-11-02] VITALS (53 sets, daily range): BP systolic 77–114; BP diastolic 45–64; PULSE 75–89; RESP 17–26; TEMP 34.9–37.3; O2SAT 88–93; BMI 31.6
[2022-11-02] MEDS: Insulin Lispro 100 UNIT/ML 3 ML VIAL SUBCUT ×4 (00:01→18:40)
[2022-11-02] MEDS: Norepinephrine Bitartrate/D5W 8 MG/250 ML PLAST..BAG 55.72 MG IV (02:20)
[2022-11-02 05:35] LABS: VBG Base Excess 3.3 mmol/L; VBG HCO3 32 mmol/L (22-26); VBG pCO2 79 mmHg; VBG pH 7.21 (7.32-7.43); VBG pO2 51 mmHg
[2022-11-02 05:53] LABS: Basophils Absolute Auto 0.1 X10*3/uL (0.0-0.2); Basophils Percent Auto 0.2 % (0-2); Hematocrit 28.4 % (42.0-52.0); Imm Gran Abs Auto 1.17 X10*3/uL (0.00-0.03); Lymphocytes Absolute Auto 0.3 X10*3/uL (1.2-4.9); Lymphocytes Percent Auto 1.2 % (20-40); MANUAL DIFF FLAG SCAN; Mean Corpuscular HGB Conc 24.6 g/dl (31.0-36.0); Mean Corpuscular Hemoglobin 21.9 pg (27.0-33.0); Mean Corpuscular Volume 88.8 fL (80.0-98.0); Monocytes Absolute Auto 1.6 X10*3/uL (0.1-1.2); Neutrophils Absolute Auto 20.2 x10*3/uL (2.0-8.3); Neutrophils Percent Auto 86.6 % (45-73); PLT CLUMP 1; Red Cell Distribution Width 29.6 % (11.0-16.0); SCAN SMEAR FLAG 1
[2022-11-02 05:56] LABS: NRBC Pct Auto 11.4 /100WBC (0.0-0.2); White Blood Count 23.3 X10*3/uL (4.8-10.8)
[2022-11-02 06:00] LABS: Glucose, Whole Blood 238 mg/dL (60-115)
[2022-11-02 06:05] LABS: Vancomycin Random 19.6 mcg/mL (15-20)
[2022-11-02] MEDS: Norepinephrine Bitartrate/D5W 8 MG/250 ML PLAST..BAG 65.27 MG IV ×4 (06:06→17:31)
[2022-11-02 06:09] LABS: Anion Gap 11 (12-20); Blood Urea Nitrogen 71 mg/dL (9-16); Calcium 9.4 mg/dL (8.4-10.2); Carbon Dioxide 32 mmol/L (22-29); Chloride 108 mmol/L (96-108); Creatinine Clr Calc Pharmacy 61.8; Estimated Glomerular Filt Rate > 60; Glucose Random 258 mg/dL (60-115); Phosphorus 4.8 mg/dL (2.7-4.5); Potassium 8.1 mmol/L (3.3-5.1); Sodium 143 mmol/L (135-145)
[2022-11-02 06:11] LABS: SLIDE REVIEW VERIFIED; Venous Blood Gas Refer to POC result
--- NOTE | 2022-11-02 06:26 | PC.NURSE ---
Upon initial assessment at 1900- pt sedated on propofol, RASS -4/5, only responds to mouth care, sedation turned off since 11/01 at 2100, no change in neuro assessment since. Afebrile. NSR with 1AVB and BBB on tele, HR 70-80s. Levophed titrated to maintain MAP > 65 per MAR. Lasix infusing as ordered. +2 generalized edema. Right mid-clavicular chest tube intact, see assessment. ETT #7.5, 23 cm at lip. On AC/VC settings. TF infusing at goal. Bishop in place, UOP approx 50-100 ml/hr. Rectal tube patent. Skin- BUE skin tears, dsgs C/D/I. Full CHG bath given, repositioned q2hr. See flowsheet for further details. Critical AM labs reported to provider. Order for 1 unit pRBC. Family called and updated on pt status, on way in to see pt at this time.
--- NOTE | 2022-11-02 06:36 | HE.PHANOTE ---
RE: CHRISTOPHERO Patients level came back this morning at 19.6. Will continue to decrease dose, new dose now 1000 mg Q24H. Renal function worsened, Scr from 1.11 to 1.14. Next draw tomorrow 11/03 @0600. PRedicted AUC 442
--- NOTE | 2022-11-02 07:52 | PM.PNNEP ---
Subjective Subjective Date of Service: 11/02/22 Interval history: seen and examined vented Physical Exam Vital Signs: Vital Signs: Last Vital Signs Temp 98.1 F 11/02/22 07:00 Pulse 78 11/02/22 07:00 Resp 21 H 11/02/22 07:00 BP 96/59 L 11/02/22 07:00 Pulse Ox 93 11/02/22 07:00 O2 Del Method Mechanical Ventil ation 11/02/22 07:00 O2 Flow Rate 60 10/24/22 07:42 FiO2 100 11/02/22 07:00 Oxygen Flow Rate 6 10/18/22 18:31 BMI result Body Mass Index 31.6 HEENT: Head: Yes normocephalic and Yes atraumatic Neck: Neck: Yes supple Resp: Auscultation: diminished lung sounds Cardio: Heart sounds: S1 normal heart sound present and S2 normal heart sound present GI: Palpation (GI): Soft to palpation and nontender Extrem: Right upper extremity: edema Objective Data Labs 11/02/22 05:24 11/02/22 05:24 Labs: Laboratory Results - last 24 hr 11/01/22 11/01/22 11/01/22 12:17 17:39 23:53 WBC RBC Hgb Hct MCV MCH MCHC RDW Plt Count MPV Immature Gran % (Auto) Neut % (Auto) Lymph % (Auto) [place] % (Auto) Eos % (Auto) Baso % (Auto) Lymph # (Auto) [place] # (Auto) Eos # (Auto) Baso # (Auto) Abs Immat Gran (auto) Absolute Neuts (auto) Absolute Nucleated RBC Nucleated RBC % (auto) Smear Tech's Comments VBG pH VBG pCO2 VBG pO2 VBG HCO3 VBG O2 Saturation VBG Base Excess Sodium Potassium Chloride Carbon Dioxide Anion Gap BUN Creatinine Estim Creat Clear Calc Estimated GFR POC Glucose 264 H 260 H 296 H Random Glucose Calcium Phosphorus Magnesium Albumin Random Vancomycin 11/02/22 11/02/22 11/02/22 05:24 05:24 05:24 WBC 23.3 H RBC 3.20 L Hgb 7.0 L* Hct 28.4 L MCV 88.8 MCH 21.9 L MCHC 24.6 L RDW 29.6 H Plt Count TNP MPV TNP Immature Gran % (Auto) 5.0 H Neut % (Auto) 86.6 H Lymph % (Auto) 1.2 L [place] % (Auto) 7.0 Eos % (Auto) 0.0 Baso % (Auto) 0.2 Lymph # (Auto) 0.3 L [place] # (Auto) 1.6 H Eos # (Auto) 0.0 Baso # (Auto) 0.1 Abs Immat Gran (auto) 1.17 H Absolute Neuts (auto) 20.2 H Absolute Nucleated RBC 2.650 H Nucleated RBC % (auto) 11.4 H Smear Tech's Comments VERIFIED VBG pH VBG pCO2 VBG pO2 VBG HCO3 VBG O2 Saturation VBG Base Excess Sodium 143 Potassium 8.1 H* Chloride 108 Carbon Dioxide 32 H Anion Gap 11 L BUN 71 H Creatinine 1.14 Estim Creat Clear Calc 61.8 Estimated GFR > 60 POC Glucose Random Glucose 258 H Calcium 9.4 Phosphorus 4.8 H Magnesium 3.0 H Albumin 3.0 L Random Vancomycin 19.6 11/02/22 11/02/22 05:25 05:57 WBC RBC Hgb Hct MCV MCH MCHC RDW Plt Count MPV Immature Gran % (Auto) Neut % (Auto) Lymph % (Auto) [place] % (Auto) Eos % (Auto) Baso % (Auto) Lymph # (Auto) [place] # (Auto) Eos # (Auto) Baso # (Auto) Abs Immat Gran (auto) Absolute Neuts (auto) Absolute Nucleated RBC Nucleated RBC % (auto) Smear Tech's Comments VBG pH 7.21 L VBG pCO2 79 VBG pO2 51 VBG HCO3 32 H VBG O2 Saturation 74.0 VBG Base Excess 3.3 Sodium Potassium Chloride Carbon Dioxide Anion Gap BUN Creatinine Estim Creat Clear Calc Estimated GFR POC Glucose 238 H Random Glucose Calcium Phosphorus Magnesium Albumin Random Vancomycin Microbiology Microbiology Results: Microbiology 10/24/22 06:11 Blood - Venous Blood Culture - Final No growth after 5 days. 10/24/22 06:11 Blood - Venous Blood Culture - Final No growth after 5 days. 10/26/22 08:12 Sputum - Suctioned Gram Stain - Final 10/26/22 08:12 Sputum - Suctioned Sputum Culture - Final Methicillin Res Staph Aureus 10/18/22 19:16 Blood - Venous Blood Culture - Final No growth after 5 days. 10/18/22 19:05 Blood - Venous Blood Culture - Final No growth after 5 days. Procedures Date of Service Date of Service: 11/02/22 Assessment & Plan Assessment and plan (1) SAYDA (acute kidney injury): Status: Acute (2) Heart failure with preserved ejection fraction: Status: Acute (3) Hyperkalemia: Status: Acute Plan Scr up BUN>> Scr c/w pre renal state elevated serum potassium due to: -compromised distal flow -? necrotic tissue and cytosol release Krystin < 20 known HFpEF hypervolemic hyponatremia resolved REC on furosemide gtt sodium zirconium follow kidney function and electrolytes ? Time Spent With Patient Time: Total time managing care of this patient today ____ minutes. Progress Note: Quality Stroke Does the patient have a stroke diagnosis?: No
[2022-11-02] MEDS: Chlorhexidine Gluc Oral Rinse 15 ML MOUTHWASH BUCCAL ×3 (08:27→21:10)
[2022-11-02] MEDS: Piperacillin Sodium/Tazobactam 4.5 GM in 0.9 % Sodium Chloride 100 ML IV ×2 (08:28→20:41)
[2022-11-02] MEDS: Digoxin 0.5 MG/2 ML AMPUL 0.25 MG IVPUSH (08:28)
[2022-11-02] MEDS: vancomycin HCL 1,000 MG in 0.9 % Sodium Chloride 250 ML 270 MG IV (08:28)
[2022-11-02] MEDS: Famotidine/PF 20 MG/2 ML VIAL IVPUSH (08:29)
[2022-11-02] MEDS: Insulin Glargine,Hum.rec.anlog 100 UNIT/ML 10 ML VIAL 10 UNIT SUBCUT (08:29)
[2022-11-02] MEDS: Furosemide 200 MG in 0.9 % Sodium Chloride 80 ML IVCONT (09:08)
--- NOTE | 2022-11-02 10:42 | MHC.CM.PN ---
Pt continues care in ICU: on ventilatory support, pressors. Labs worsening despite interventions and pt appears to be failing. MD has held conversations about poor outcomes and transition to VALVE INSPECTOR. Pt's HCP is a friend who isn't certain on withdrawal of aggressive care. Pt's sister has a better understanding of decline and is leaning toward VAL[facility] INSPECTOR. Pt is a DNR. CM to follow for d/c planning needs.
--- NOTE | 2022-11-02 11:55 | MHC.CLN ---
F/U PT TOLERATING TF WITH LOW RESIDUALS PT RECEIVING TF: PROMOTE AT MAX GOAL RATE 50ML/HR PROVIDES 1200KCALS (1469KCALS WITH SEDATION; 20KCALS/KG BASED ON CMW), 75G PROTEIN (1.0G/KG), 1007ML TOTAL WATER FROM FORMULA RECOMMEND RE-STARTING 120ML FREE WATER FLUSHES Q 8 HRS TO PROVIDE 1367ML TOTAL WATER (18ML/KG) PT PENDING SIGNALS INTELLIGENCE SUPERINTENDENT-PROGNOSIS POOR PER MD CONTINUE TO MONITOR TOLERANCE, RESIDUALS AND LYTES CAN D/C TF IF PT MADE SIGNALS INTELLIGENCE SUPERINTENDENT FOLLOWING WITH TEAM
[2022-11-02 13:47] LABS: Glucose, Whole Blood 269 mg/dL (60-115)
--- NOTE | 2022-11-02 16:32 | P.PNCC_ITS ---
Subjective Subjective Date of Service: 11/02/22 Interval History: 72-year-old gentleman with underlying history of COPD, pulmonary hypertension, right heart failure initially admitted on 10/18/2022 with progressive dyspnea with hospital course significant for development of GI bleed status post EGD and sigmoidoscopy on 10/20/2022 demonstrating a bleeding oropharyngeal lesion; also with progressively worsening hypoxemia and hypercapnia requiring BiPAP support and transfer to intensive care unit and intubation on 10/24/2022 secondary to progressive right-sided heart failure with AFib requiring vasopressor support, further complicated by critical care encephalopathy and MRSA pneumonia. on 10/30/2022 again with worsening hypoxemia, essentially maximum ventilatory support. CT chest on 10/31/2022 with large right-sided pleural effusion, right- sided thoracenteses attempted with development of pneumothorax with conversion to right-sided chest tube and drainage of approximately 1 L of pleural fluid with minimal improvement in oxygenation. Patient overnight with worsening status including pressor support coma further hyperkalemia, and acidosis. Family meeting held with overall very poor clinical prognosis discussed. Family is considering goals of care. Family is not interested in pursuing dialysis treatments, even, if hemodynamics would be acceptable. Critical Care Time (minutes): 60 Physical Exam Vital Signs: Vital Signs: Last Vital Signs Temp 98.4 F 11/02/22 14:00 Pulse 87 11/02/22 14:00 Resp 17 11/02/22 14:00 BP 94/55 L 11/02/22 14:00 Pulse Ox 88 L 11/02/22 14:00 O2 Del Method Mechanical Ventil ation 11/02/22 14:00 O2 Flow Rate 60 10/24/22 07:42 FiO2 100 11/02/22 15:41 Oxygen Flow Rate 6 10/18/22 18:31 BMI result Body Mass Index 31.6 Const: General: no acute distress and other (No arousal with sedation vacation) Eyes: Sclerae: sclerae normal Neck: Neck: Yes no lymphadenopathy, Yes trachea midline and Yes supple Resp: Auscultation: crackles (Diffuse bilateral) Cardio: Rate: regular rate Rhythm: regular rhythm Heart sounds: no gallops, no murmurs and no rubs GI: Palpation (GI): Soft to palpation and Other GI palpation findings present ( Nontender) Auscultation: normal bowel sounds Extrem: General: No clubbing, No cyanosis and Yes edema (1+ bilateral) Objective Data Labs 11/02/22 05:24 11/02/22 05:24 Labs: Laboratory Results - last 24 hr 11/01/22 11/01/22 11/02/22 17:39 23:53 05:24 WBC RBC Hgb Hct MCV MCH MCHC RDW Plt Count MPV Immature Gran % (Auto) Neut % (Auto) Lymph % (Auto) Clinton % (Auto) Eos % (Auto) Baso % (Auto) Lymph # (Auto) [place] # (Auto) Eos # (Auto) Baso # (Auto) Abs Immat Gran (auto) Absolute Neuts (auto) Absolute Nucleated RBC Nucleated RBC % (auto) Smear Tech's Comments VBG pH VBG pCO2 VBG pO2 VBG HCO3 VBG O2 Saturation VBG Base Excess Sodium Potassium Chloride Carbon Dioxide Anion Gap BUN Creatinine Estim Creat Clear Calc Estimated GFR POC Glucose 260 H 296 H Random Glucose Calcium Phosphorus Magnesium Albumin Random Vancomycin 19.6 Blood Type Antibody Screen Crossmatch 11/02/22 11/02/22 11/02/22 05:24 05:24 05:25 WBC 23.3 H RBC 3.20 L Hgb 7.0 L* Hct 28.4 L MCV 88.8 MCH 21.9 L MCHC 24.6 L RDW 29.6 H Plt Count TNP MPV TNP Immature Gran % (Auto) 5.0 H Neut % (Auto) 86.6 H Lymph % (Auto) 1.2 L Clinton % (Auto) 7.0 Eos % (Auto) 0.0 Baso % (Auto) 0.2 Lymph # (Auto) 0.3 L Clinton # (Auto) 1.6 H Eos # (Auto) 0.0 Baso # (Auto) 0.1 Abs Immat Gran (auto) 1.17 H Absolute Neuts (auto) 20.2 H Absolute Nucleated RBC 2.650 H Nucleated RBC % (auto) 11.4 H Smear Tech's Comments VERIFIED VBG pH 7.21 L VBG pCO2 79 VBG pO2 51 VBG HCO3 32 H VBG O2 Saturation 74.0 VBG Base Excess 3.3 Sodium 143 Potassium 8.1 H* Chloride 108 Carbon Dioxide 32 H Anion Gap 11 L BUN 71 H Creatinine 1.14 Estim Creat Clear Calc 61.8 Estimated GFR > 60 POC Glucose Random Glucose 258 H Calcium 9.4 Phosphorus 4.8 H Magnesium 3.0 H Albumin 3.0 L Random Vancomycin Blood Type Antibody Screen Crossmatch 11/02/22 11/02/22 11/02/22 05:57 07:45 12:17 WBC RBC Hgb Hct MCV MCH MCHC RDW Plt Count MPV Immature Gran % (Auto) Neut % (Auto) Lymph % (Auto) Clinton % (Auto) Eos % (Auto) Baso % (Auto) Lymph # (Auto) Clinton # (Auto) Eos # (Auto) Baso # (Auto) Abs Immat Gran (auto) Absolute Neuts (auto) Absolute Nucleated RBC Nucleated RBC % (auto) Smear Tech's Comments VBG pH VBG pCO2 VBG pO2 VBG HCO3 VBG O2 Saturation VBG Base Excess Sodium Potassium Chloride Carbon Dioxide Anion Gap BUN Creatinine Estim Creat Clear Calc Estimated GFR POC Glucose 238 H 269 H Random Glucose Calcium Phosphorus Magnesium Albumin Random Vancomycin Blood Type A Positive Antibody Screen NEGATIVE Crossmatch See Detail Microbiology Microbiology Results: Microbiology 10/24/22 06:11 Blood - Venous Blood Culture - Final No growth after 5 days. 10/24/22 06:11 Blood - Venous Blood Culture - Final No growth after 5 days. 10/26/22 08:12 Sputum - Suctioned Gram Stain - Final 10/26/22 08:12 Sputum - Suctioned Sputum Culture - Final Methicillin Res Staph Aureus 10/18/22 19:16 Blood - Venous Blood Culture - Final No growth after 5 days. 10/18/22 19:05 Blood - Venous Blood Culture - Final No growth after 5 days. Progress Note: A&P Assessment and plan (1) Hyperkalemia: Status: Acute (2) Acidosis: Status: Acute (3) Pleural effusion due to congestive heart failure: Status: Acute (4) MRSA pneumonia: Status: Acute (5) Pulmonary hypertension: Status: Acute (6) Right heart failure: Status: Acute (7) Acute and chronic respiratory failure with hypoxia: Status: Acute (8) Atrial flutter: Status: Acute (9) Morbid obesity: Status: Acute (10) COPD with exacerbation: Status: Acute Plan Assessment: 72-year-old gentleman with has multiple medical comorbidities now admitted with acute on chronic hypoxic respiratory failure secondary to exacerbation underlying chronic right-sided congestive heart failure, pulmonary hypertension, COPD, and AFib Plan: Neuro: Critical care encephalopathy, poor arousal with sedation vacation continue with sedation vacation trials. Will obtain CT head for solution. Cardiac: Acute on chronic right-sided congestive heart failure with underlying AFib and pulmonary hypertension. Sildenafil stopped. Continue to titrate off pressor support as tolerated. AFib controlled with digoxin. Worsening pressor requirements. Pulmonary: Acute on chronic hypoxic respiratory failure secondary to exacerbation of underlying congestive heart failure now requiring maximum ventilatory support. Continue to titrate off as tolerated. Large right-sided pleural effusion status post right-sided chest tube with drainage of approximately 1.6 L. Renal: Worsening hyperkalemia despite advocate urine output. Nephrology service care appreciated. Worsened acidosis. Continue to monitor renal indices and urine output. Family is not interested in hemodialysis treatments. Endo: No acute issues. GI: No acute issues. ID: MRSA pneumonia, now on vancomycin. Heme/Onc: No acute issues. Psych: No acute issues. Miscellaneous: Family meeting held and overall very poor prognosis for meaningful clinical recovery discussed. Family is considering goals of care. Prophylaxis: Lovenox, famotidine Diet: Tube feeds Critical care time spent: 60 minute Quality Stroke Does the patient have a stroke diagnosis?: No VTE Prior VTE?: No VTE Risk Level:: Medical - moderate - high VTE Device Contraindication: N/A - Device Ordered VTE Drug Contraindication: Treatment Not Indicated
[2022-11-02 18:32] LABS: Glucose, Whole Blood 207 mg/dL (60-115)
[2022-11-02] MEDS: Norepinephrine Bitartrate/D5W 8 MG/250 ML PLAST..BAG 95.51 MG IV (20:47)
--- NOTE | 2022-11-02 21:28 | PC.NURSE ---
ASSUMED CARE OF PT AT 1900. PT IS UNRESPONSIVE TO PAINFUL STIMULI AND FLACCID. NO SEDATION ON. LEVOFED AT 0.43 MCG/KG/MIN BUT BP HAS BEEN DOWN TO 70'S SYSTOLLIC AND LEVO TITRATED UP TO 0.8 MCG/KG/MIN. U/O LOW ON LASIX DRIP, ONLY 20-35 ML/HR PAST 3 HOURS. UPDATED PROVIDER WHO STATES FAMILY HAS BEEN UPDATED AND ARE AWARE OF PT'S STAUTS. WILL STOP LASIX DRIP AND CHANGE LEVOPHED TO 4X CONCENTRATED.
[2022-11-03] VITALS (7 sets, daily range): BP systolic 55–87; BP diastolic 31–49; PULSE 44–89; RESP 22–26; TEMP 37.3; O2SAT 87–88
[2022-11-03 00:30] LABS: Glucose, Whole Blood 229 mg/dL (60-115)
[2022-11-03] MEDS: Insulin Lispro 100 UNIT/ML 3 ML VIAL SUBCUT (00:30)
--- NOTE | 2022-11-03 01:17 | PC.NURSE ---
LEVOPHED UP TO 0.9MCG/KG/MIN. BP 84/47, MAP 60. RHYTHM HAD BEEN SR WITH BBB AND 1ST DEGREE AV BLOCK RATE 80'S WITH RUNS OF NON SUSTAINED AFIB RATE 80'S. NOW QRS IS WIDENING WITH FREQUENT PVC'S AND RUNS OF BIGEMINAL RHYTHM. O2 SAT IS 87% ON FIO2 OF 100%. PROVIDER AWARE OF WIDENING QRS AND PVC'S.
--- NOTE | 2022-11-03 01:34 | PC.NURSE ---
provider at bedside. wide complex qrs noted, rate 60-70's. bp 73/44 om levo max rate of 1 mcg/kg/min.
--- NOTE | 2022-11-03 02:13 | P.EN_ITS ---
Documented by User: Esau Gr NP 11/03/22 02:17 Event Note Date of Service: 11/03/22 Event Note: Deterioration of patient's clinical status throughout the night,, including hypoxemia refractory to ventilatory support, bradycardia, widening QRS, and profound hypotension despite being on max pressor support. Patient DNR. at 0153, On my exam, the patient had absent peripheral pulses.? Pupils fixed and dilated.? Absent heart sounds. Pronounced at 0153. HCP Isaias notified via p clem. Patient is not a medical exam candidate.? Organ donation was notified by nursing.? Attending Dr Mijares notified? Time Spent With Patient Time: Total time managing care of this patient today ____ minutes. Documented by User: Eugene Mijares MD 11/03/22 10:39 Event Note Date of Service: 11/03/22
--- NOTE | 2022-11-03 02:31 | PC.NURSE ---
PROVIDER AT BEDSIDE. MONITOR SHOWED AGONAL RHYTHM TO ASYSTOLE. ETCO2 DROPPED FROM 22 TO 16 THEN 0. NO AUDIBLE BP. NO PALPABLE OR AUDIBLE PULSE. PT PRONOUNCED AT 0153. FAMILY CALLED AND NOTIFIED OF AND ARE COMING IN TO SEE PT. UNIT LEADER CALLED AND CASE IS DECLINED. PT EXTUBATED BY RESP THERAPIST AND RIGHT SIDE CHEST TUBE REMOVED.
--- NOTE | 2022-11-03 02:43 | PC.NURSE ---
[facility] CALLED AND CASE DECLINED. . DECLINED BY CHARLENE MENDOZA.
--- NOTE | 2022-11-03 03:43 | PC.NURSE ---
family in to see pt. they do not yet know the home.
--- NOTE | 2022-11-03 04:29 | PC.NURSE ---
POST MORTEM CARE DONE AND BODY SENT TO [facility].
--- NOTE | 2022-11-03 10:39 | P.DN_ITS ---
Discharge Sum: Prov Provider Primary care physician: Altaf Campos MD Consults: 10/18/22 21:38 Consult to Gastroenterology Routine Consulting Provider: Erwin Holman Reason for consultation: ?GI bleed 10/18/22 21:59 Consult to Vascular Surgery Routine Consulting Provider: [facility] V[facility] Services Reason for consultation: AA aneursym 10/19/22 09:17 Consult to Cardiology Routine Consulting Provider: [facility] Cardiovascular Services Reason for consultation: preop risk stratification; gi bleed on Eliquis Has provider been notified: No 10/19/22 09:42 Consult to Hematology / Oncology Routine Consulting Provider: Valerie Medeiros Reason for consultation: anemia Has provider been notified: No 10/22/22 16:33 Consult to Pulmonology Routine Consulting Provider: [facility] Pulmonology Services Reason for consultation: hypoxia 10/24/22 09:51 Consult to Critical Care Routine Consulting Provider: Ted Greer Reason for consultation: hypoxia Has provider been notified: No 10/25/22 09:05 Consult to Nephrology Routine Consulting Provider: Dinesh Briseno Reason for consultation: ATN Has provider been notified: Yes Discharge Sum: Diag Contributing Factors (1) Right heart failure: (2) MRSA pneumonia: (3) Acute and chronic respiratory failure with hypoxia: (4) Hyperkalemia: (5) Acidosis: (6) Pleural effusion due to congestive heart failure: (7) Pulmonary hypertension: (8) Atrial flutter: (9) Morbid obesity: (10) COPD with exacerbation: Discharge Sum: Summary Date and Time Date of admission: 10/18/22 21:38 Date of : 11/03/22 Time of : 01:53 Summary Details: 72-year-old gentleman with underlying history of COPD, pulmonary hypertension, right heart failure initially admitted on 10/18/2022 with progressive dyspnea with hospital course significant for development of GI bleed status post EGD and sigmoidoscopy on 10/20/2022 demonstrating a bleeding oropharyngeal lesion; also with progressively worsening hypoxemia and hypercapnia requiring BiPAP support and transfer to intensive care unit and intubation on 10/24/2022 secondary to progressive right-sided heart failure with AFib requiring vasopressor support, further complicated by critical care encephalopathy and MRSA pneumonia. on 10/30/2022 again with worsening hypoxemia, essentially maximum ventilatory support. CT chest on 10/31/2022 with large right-sided pleural effusion, right- sided thoracenteses attempted with development of pneumothorax with conversion to right-sided chest tube and drainage of approximately 1 L of pleural fluid wit h minimal improvement in oxygenation. Over the next several days patient with no significant improvement in oxygenation, but with worsening pressor requirements and hyperkalemia despite adequate urine volume production. Family meeting held on 11/02/2022 and overall very poor clinical prognosis for recovery discussed. DNR status confirmed. Family was not interested in pursuing hemodialysis treatment, even if hemodynamics would be acceptable. Patient clinical status continued to progressively worsen with further hypoxia refractory to ventilatory support development of bradycardia, widening QRS, and profound hypotension despite maximum vasopressor support resulting in asystole on 11/03/2022 at 01:53. Additional Data Family: contacted Attending physician: Eugene Mijares MD Was code activated?: No
== END 2022-11-03 04:30 | disposition expired | DRG 813 ==
LOC: HO.ED 19:47 → HO.EDOVER 21:45 → HO.IMC 22:03 → HO.ICU 10-24 12:35
PROVIDERS: Internal Medicine; Internal Medicine Cardiovascular Disease; Internal Medicine Nephrology; Nurse Practitioner Acute Care; Nurse Practitioner Family; Physician Assistant Medical; Registered Nurse Community Health; Admitting Provider Student in an Organized Health Care Education/Training Program; Emergency Provider Student in an Organized Health Care Education/Training Program; PCP Internal Medicine; Visit Provider Internal Medicine Pulmonary Disease
PROC: 0DJ08ZZ Inspection of Upper Intestinal Tract, Via Natural or Artificial Opening Endoscopic (ICD-10-PCS; CPT 43235; principal; 2022-10-20 09:00)
DX: D68.32 Hemorrhagic disorder due to extrinsic circulating anticoagulants (principal); I50.33 Acute on chronic diastolic (congestive) heart failure; J96.21 Acute and chronic respiratory failure with hypoxia; A41.9 Sepsis, unspecified organism; R65.20 Severe sepsis without septic shock; N17.0 Acute kidney failure with tubular necrosis; J15.212 Pneumonia due to Methicillin resistant Staphylococcus aureus; K29.71 Gastritis, unspecified, with bleeding; D62 Acute posthemorrhagic anemia; I48.92 Unspecified atrial flutter; J98.11 Atelectasis; G93.49 Other encephalopathy; J91.8 Pleural effusion in other conditions classified elsewhere; I11.0 Hypertensive heart disease with heart failure; Z99.81 Dependence on supplemental oxygen; I71.43 Infrarenal abdominal aortic aneurysm, without rupture; I44.0 Atrioventricular block, first degree; E87.5 Hyperkalemia; I50.812 Chronic right heart failure; Z66 Do not resuscitate; E78.5 Hyperlipidemia, unspecified; J39.2 Other diseases of pharynx; D68.4 Acquired coagulation factor deficiency; I27.21 Secondary pulmonary arterial hypertension; J43.2 Centrilobular emphysema; E86.1 Hypovolemia; N40.0 Benign prostatic hyperplasia without lower urinary tract symptoms; I27.81 Cor pulmonale (chronic); E66.01 Morbid (severe) obesity due to excess calories; Z68.31 Body mass index [BMI] 31.0-31.9, adult; K64.8 Other hemorrhoids; Z20.822 Contact with and (suspected) exposure to COVID-19; Z87.891 Personal history of nicotine dependence; Z79.01 Long term (current) use of anticoagulants; Z79.51 Long term (current) use of inhaled steroids; Z79.82 Long term (current) use of aspirin; Z79.899 Other long term (current) drug therapy
CPT/HCPCS: 36415; 36600; 70450; 70490; 71045; 71250; 71260; 71275; 74177; 80048; 80053; 80076; 80202; 81001; 82040; 82248; 82272; 82533; 82565; 82803; 82947; 83010; 83605; 83615; 83735; 83880; 84100; 84145; 84156; 84300; 84484; 85007; 85014; 85018; 85025; 85027; 85045; 85384; 85597; 85598; 85610; 85613; 85652; 85670; 85730; 86160; 86162; 86850; 86900; 86901; 86923; 87040; 87070; 87077; 87186; 87205; 87449; 87493; 87633; 87635; 87798; 87899; 92950; 93005; 93306; 94002; 94003; 94640; 94660; 97162; 99285; C1758; J0456; J0696; J1160; J1650; J1940; J2185; J2250; J2270; J2543; J2920; J3010; J3370; J3371; J7168; P9016; P9047; Q9957; Q9967

== ENCOUNTER 2022-10-18 21:38 | Outpatient (BNV) | payer OTHER, SELFPAY | END 2022-10-25 07:00 | PROVIDERS: Admitting Provider Student in an Organized Health Care Education/Training Program; Emergency Provider Student in an Organized Health Care Education/Training Program; PCP Internal Medicine; Visit Provider Internal Medicine Cardiovascular Disease | DX: I34.0 Nonrheumatic mitral (valve) insufficiency (principal); I36.1 Nonrheumatic tricuspid (valve) insufficiency | CPT/HCPCS: 93306 ==

== ENCOUNTER 2022-10-18 21:38 | Outpatient (BNV) | payer OTHER, SELFPAY | END 2022-10-26 15:10 | PROVIDERS: Admitting Provider Student in an Organized Health Care Education/Training Program; Emergency Provider Student in an Organized Health Care Education/Training Program; PCP Internal Medicine; Visit Provider Internal Medicine Cardiovascular Disease | DX: I45.2 Bifascicular block (principal); R94.31 Abnormal electrocardiogram [ECG] [EKG] | CPT/HCPCS: 93010 ==

== ENCOUNTER 2022-10-18 21:38 | Outpatient (BNV) | payer OTHER, SELFPAY | END 2022-10-24 11:15 | PROVIDERS: Admitting Provider Student in an Organized Health Care Education/Training Program; Emergency Provider Student in an Organized Health Care Education/Training Program; PCP Internal Medicine; Visit Provider Internal Medicine Cardiovascular Disease | DX: I49.1 Atrial premature depolarization (principal) | CPT/HCPCS: 93010 ==

== ENCOUNTER → 2022-10-18 21:38 | Outpatient (BNV) | payer OTHER, SELFPAY | PROVIDERS: Admitting Provider Student in an Organized Health Care Education/Training Program; Emergency Provider Student in an Organized Health Care Education/Training Program; PCP Internal Medicine; Visit Provider Hospitalist | DX: I50.810 Right heart failure, unspecified (principal); J15.212 Pneumonia due to Methicillin resistant Staphylococcus aureus; J96.21 Acute and chronic respiratory failure with hypoxia; E87.5 Hyperkalemia; E87.20 Acidosis, unspecified; I50.9 Heart failure, unspecified; I27.20 Pulmonary hypertension, unspecified; I48.92 Unspecified atrial flutter; E66.01 Morbid (severe) obesity due to excess calories; J44.1 Chronic obstructive pulmonary disease with (acute) exacerbation | CPT/HCPCS: 32555; 32556; 99232; 99239; 99291 ==

== ENCOUNTER → 2022-10-18 21:38 | Outpatient (BNV) | payer OTHER, SELFPAY | PROVIDERS: Admitting Provider Student in an Organized Health Care Education/Training Program; Emergency Provider Student in an Organized Health Care Education/Training Program; PCP Internal Medicine; Visit Provider Internal Medicine Cardiovascular Disease | DX: J18.9 Pneumonia, unspecified organism (principal); A41.9 Sepsis, unspecified organism; J96.21 Acute and chronic respiratory failure with hypoxia; J90 Pleural effusion, not elsewhere classified; I27.21 Secondary pulmonary arterial hypertension; D64.9 Anemia, unspecified; I50.812 Chronic right heart failure; I48.92 Unspecified atrial flutter; Z01.810 Encounter for preprocedural cardiovascular examination; I71.40 Abdominal aortic aneurysm, without rupture, unspecified; Z79.01 Long term (current) use of anticoagulants; I50.9 Heart failure, unspecified | CPT/HCPCS: 31500; 36556; 99291; 99499 ==

== ENCOUNTER → 2022-10-18 21:38 | Outpatient (BNV) | payer OTHER, SELFPAY | PROVIDERS: Admitting Provider Student in an Organized Health Care Education/Training Program; Emergency Provider Student in an Organized Health Care Education/Training Program; PCP Internal Medicine; Visit Provider Student in an Organized Health Care Education/Training Program | DX: J90 Pleural effusion, not elsewhere classified (principal) | CPT/HCPCS: 99223; 99232; 99233; 99499 ==

== ENCOUNTER → 2022-10-18 21:38 | Outpatient (BNV) | payer OTHER, SELFPAY | PROVIDERS: Admitting Provider Student in an Organized Health Care Education/Training Program; Emergency Provider Student in an Organized Health Care Education/Training Program; PCP Internal Medicine; Visit Provider Surgery Vascular Surgery | DX: I71.40 Abdominal aortic aneurysm, without rupture, unspecified (principal) | CPT/HCPCS: 99222; 99232 ==